=== PATIENT | female | born 1975 | race Caucasian/White ===

== ENCOUNTER 2020-01-07 10:35 | Emergency (ER) | payer OTHER, SELFPAY ==
[2020-01-07 10:38] VITALS: BP 124/77; PULSE 59; RESP 16; TEMP 36.4; O2SAT 100
--- NOTE | 2020-01-07 10:39 | ED.GENADULT ---
HPI - General Adult General Chief complaint: Urogenital-Female Stated complaint: UTI SYMPTOMS Time Seen by Provider: 01/07/20 11:07 Source: patient and RN notes reviewed Mode of arrival: ambulatory Limitations: no limitations History of Present Illness HPI narrative: 45-year-old female presents with urinary complaints for 1 day. Dysuria consist of painful urination since 05:00 today. History of Genitourinary disorders, recently completed Cipro 2 weeks ago per Yaquelin. Denies burning, frequency, and urgency.? No treatment.? Denies fever or chills. No significant pelvic pain. No vaginal discharge.? No concerns for STDs. Exacerbating factors urinating.? Denies hematuria or vaginal bleeding. Denies being , Hysterectomy.? No flank pain. Denies nausea, vomiting, and abdominal pain. Tolerating liquids well.? Remains active. Some parts of this dictation were generated by voice recognition software and may contain typographical and/or grammatical inaccuracies. Related Data Home Medications Medication Instructions Recorded Confirmed No Home Medications 01/07/20 01/07/20 Allergies Allergy/AdvReac Type Severity Reaction Status Date / Time clindamycin Allergy Intermediate HIVES Verified 01/07/20 10:44 lubiprostone Allergy Intermediate ITCHING, Verified 01/07/20 10:44 RASH, LIP SWELLING acetaminophen Allergy Mild ELEVATES Verified 01/07/20 10:44 LIVER ENZYMES, HIVES latex Allergy Mild RASH-CONDOMS Verified 01/07/20 10:44 AND GLOVES vancomycin AdvReac Intermediate CHEST Verified 01/07/20 10:44 TIGHTNESS amoxicillin AdvReac Mild CHEST PAIN Verified 01/07/20 10:44 codeine AdvReac Mild Nausea and Verified 01/07/20 10:44 Vomiting levofloxacin AdvReac Mild MUSCLE Verified 01/07/20 10:44 PAIN IN CHEST WALL nitrofurantoin AdvReac Mild CHEST Verified 01/07/20 10:44 TIGHTNESS Penicillins AdvReac Mild CHEST PAIN Verified 01/07/20 10:44 Sulfa (Sulfonamide AdvReac Mild CHEST PAIN Verified 01/07/20 10:44 Antibiotics) KETOROLAC TROMETHAMINE AdvReac Intermediate MESSES W/ Uncoded 10/26/19 13:26 MY HEART HYDROCODONE BIT AdvReac Mild TOO STRONG Uncoded 10/26/19 13:26 PAROXETINE HCL AdvReac Mild PASS OUT Uncoded 10/26/19 13:26 PROPOXYPHENE NAPSYLATE AdvReac Mild I PASS Uncoded 10/26/19 13:26 OUT Review of Systems Review of Systems: Narrative: CONSTITUTIONAL: Denies fever, chills, sweats. EYES: Denies visual changes, redness, discharge. ENT: Denies rhinorrhea, congestion, sore throat, otalgia. CARDIOVASCULAR: Denies chest pain, palpitations, edema. RESPIRATORY: Denies dyspnea, wheezing, cough. GASTROINTESTINAL: Denies abdominal pain, nausea, vomiting, diarrhea. GENITOURINARY: Complains of dysuria (painful urination). Denies hematuria, abnormal discharge. SKIN: Denies rash or itching. MUSCULOSKELETAL: Denies acute back pain, joint pain, or myalgia. NEUROLOGIC: Denies numbness or focal weakness. PSYCHIATRIC: Denies anxiety or depression. All systems reviewed & are unremarkable except as noted in HPI and below. [facility] Past Medical History Medical History (Updated 01/07/20 @ 10:47 by SAMMY Warren) Anxiety Bronchitis Constipation Depression Genitourinary disorder Interstitial cystitis, urethral dilation GERD (gastroesophageal reflux disease) Irritable bowel syndrome Mitral valve prolapse Right hand fracture Urinary tract infection Surgical History Surgical History (Updated 01/07/20 @ 10:49 by SAMMY Warren) H/O hemorrhoidectomy H/O inguinal hernia repair H/O sinus surgery H/O tubal ligation History of facial surgery Nasal reconstruction History of hysterectomy History of orthopedic surgery Right knee, trigger release finger left hand History of tonsillectomy Family History Family History (Updated 01/07/20 @ 11:19 by SAMMY Warren) Grandparent Diabetes mellitus Social History Social History (Updated 01/07
== END 2020-01-07 11:17 | disposition home or self-care (01) ==
PROVIDERS: Emergency Provider Nurse Practitioner Family; PCP Family Medicine
DX: R30.0 Dysuria (principal); Z87.440 Personal history of urinary (tract) infections; Z87.891 Personal history of nicotine dependence; K21.9 Gastro-esophageal reflux disease without esophagitis; I34.1 Nonrheumatic mitral (valve) prolapse
CPT/HCPCS: 81003; 87086; 87088; 99213; G0463

== ENCOUNTER 2020-01-13 12:14 | Emergency (ER) | payer OTHER, SELFPAY ==
--- NOTE | 2020-01-13 12:19 | ED.FEMALEGU ---
HPI - Female Genitourinary General Chief complaint: Urogenital-Female Stated complaint: possible uti Time Seen by Provider: 01/13/20 13:00 Source: patient and RN notes reviewed Mode of arrival: ambulatory Limitations: no limitations History of Present Illness HPI Narrative: 45-year-old female with history of interstitial cystitis presents for concern for urinary frequency, dysuria. Denies fever, flank pain, hematuria. MD elicited complaint: dysuria Related Data Home Medications Medication Instructions Recorded Confirmed No Home Medications 01/07/20 01/07/20 Allergies Allergy/AdvReac Type Severity Reaction Status Date / Time clindamycin Allergy Intermediate HIVES Verified 01/13/20 12:55 lubiprostone Allergy Intermediate ITCHING, Verified 01/13/20 12:55 RASH, LIP SWELLING acetaminophen Allergy Mild ELEVATES Verified 01/13/20 12:55 LIVER ENZYMES, HIVES latex Allergy Mild RASH-CONDOMS Verified 01/13/20 12:55 AND GLOVES vancomycin AdvReac Intermediate CHEST Verified 01/13/20 12:55 TIGHTNESS amoxicillin AdvReac Mild CHEST PAIN Verified 01/13/20 12:55 codeine AdvReac Mild Nausea and Verified 01/13/20 12:55 Vomiting levofloxacin AdvReac Mild MUSCLE Verified 01/13/20 12:55 PAIN IN CHEST WALL nitrofurantoin AdvReac Mild CHEST Verified 01/13/20 12:55 TIGHTNESS Penicillins AdvReac Mild CHEST PAIN Verified 01/13/20 12:55 Sulfa (Sulfonamide AdvReac Mild CHEST PAIN Verified 01/13/20 12:55 Antibiotics) KETOROLAC TROMETHAMINE AdvReac Intermediate MESSES W/ Uncoded 10/26/19 13:26 MY HEART HYDROCODONE BIT AdvReac Mild TOO STRONG Uncoded 10/26/19 13:26 PAROXETINE HCL AdvReac Mild PASS OUT Uncoded 10/26/19 13:26 PROPOXYPHENE NAPSYLATE AdvReac Mild I PASS Uncoded 10/26/19 13:26 OUT Review of Systems Review of Systems: Narrative: CONSTITUTIONAL: Denies malaise, chills, sweats, or fever. CARDIOVASCULAR: Denies chest pain, palpitations, or edema. RESPIRATORY: Denies dyspnea. GASTROINTESTINAL: Denies abdominal pain, nausea, vomiting, diarrhea GENITOURINARY: Reports dysuria, frequency. Denies hematuria. MUSCULOSKELETAL: Denies back pain, joint pain, or myalgia. All systems reviewed & are unremarkable except as noted in HPI and below PMFSH Past Medical History Medical History (Updated 01/13/20 @ 13:15 by Izabela Vaughan NP) Anxiety Bronchitis Constipation Depression Genitourinary disorder Interstitial cystitis, urethral dilation GERD (gastroesophageal reflux disease) Irritable bowel syndrome Mitral valve prolapse Right hand fracture Urinary tract infection Surgical History Surgical History (Updated 01/07/20 @ 10:49 by SAMMY Warren) H/O hemorrhoidectomy H/O inguinal hernia repair H/O sinus surgery H/O tubal ligation History of facial surgery Nasal reconstruction History of hysterectomy History of orthopedic surgery Right knee, trigger release finger left hand History of tonsillectomy Family History Family History (Updated 01/07/20 @ 11:19 by SAMMY Warren) Grandparent Diabetes mellitus Social History Social History (Updated 01/07/20 @ 11:20 by SAMMY Warren) Smoking status: Former smoker Second hand tobacco smoke exposure: No Alcohol intake: never Substance use: never Gender identity (if verbalized by the patient): Female Comments At time of signature, agree with nursing past medical, surgical, social and family history. There is no relevant family history pertinent to the presenting complaint Exam Narrative: Exam Narrative: GENERAL: Well-appearing, well-nourished, and in no acute distress. HEAD: Normocephalic. EYES: PERRLA, conjunctivae clear. NECK: Supple. No lymphadenopathy CHEST: Clear to auscultation. No respiratory distress. HEART: Regular rate and rhythm. No murmur heard. Normal peripheral pulses. ABDOMEN: Soft, nontender upon palpation, nondistended, normal active bowel sounds,
[2020-01-13 12:20] VITALS: BP 104/69; PULSE 86; RESP 20; TEMP 36.6; O2SAT 98
== END 2020-01-13 13:15 | disposition home or self-care (01) ==
PROVIDERS: Emergency Provider Nurse Practitioner; PCP Family Medicine
DX: R30.0 Dysuria (principal); F41.9 Anxiety disorder, unspecified; F32.9 Major depressive disorder, single episode, unspecified; K21.9 Gastro-esophageal reflux disease without esophagitis; I34.1 Nonrheumatic mitral (valve) prolapse
CPT/HCPCS: 81003; 87086; 87088; 99213; G0463

== ENCOUNTER 2020-01-29 14:25 | Emergency (ER) | payer OTHER, SELFPAY ==
[2020-01-29 14:30] VITALS: BP 108/75; PULSE 63; RESP 16; TEMP 36.4; O2SAT 100
--- NOTE | 2020-01-29 14:46 | ED.URI ---
HPI - URI/Sore Throat General Chief Complaint: Upper Respiratory Infection Stated Complaint: Pos UTI/sinus issues Time Seen by Provider: 01/29/20 14:58 Source: patient and RN notes reviewed Mode of arrival: ambulatory Limitations: no limitations History of Present Illness HPI Narrative: 45-year-old female presents with concern for 1 week history of postnasal drainage, rhinorrhea, nasal congestion. She denies fevers, chills, body aches, cough. Reports chest congestion. She also reports dysuria. She has a history of interstitial cystitis. She denies frequency, urgency, flank pain, abdominal pain, abnormal vaginal discharge. MD elicited complaint: nasal congestion Related Data Allergies Allergy/AdvReac Type Severity Reaction Status Date / Time clindamycin Allergy Intermediate HIVES Verified 01/29/20 14:35 lubiprostone Allergy Intermediate ITCHING, Verified 01/29/20 14:35 RASH, LIP SWELLING acetaminophen Allergy Mild ELEVATES Verified 01/29/20 14:35 LIVER ENZYMES, HIVES latex Allergy Mild RASH-CONDOMS Verified 01/29/20 14:35 AND GLOVES vancomycin AdvReac Intermediate CHEST Verified 01/29/20 14:35 TIGHTNESS amoxicillin AdvReac Mild CHEST PAIN Verified 01/29/20 14:35 codeine AdvReac Mild Nausea and Verified 01/29/20 14:35 Vomiting levofloxacin AdvReac Mild MUSCLE Verified 01/29/20 14:35 PAIN IN CHEST WALL nitrofurantoin AdvReac Mild CHEST Verified 01/29/20 14:35 TIGHTNESS Penicillins AdvReac Mild CHEST PAIN Verified 01/29/20 14:35 Sulfa (Sulfonamide AdvReac Mild CHEST PAIN Verified 01/29/20 14:35 Antibiotics) KETOROLAC TROMETHAMINE AdvReac Intermediate MESSES W/ Uncoded 10/26/19 13:26 MY HEART HYDROCODONE BIT AdvReac Mild TOO STRONG Uncoded 10/26/19 13:26 PAROXETINE HCL AdvReac Mild PASS OUT Uncoded 10/26/19 13:26 PROPOXYPHENE NAPSYLATE AdvReac Mild I PASS Uncoded 10/26/19 13:26 OUT Review of Systems Review of Systems: Narrative: CONSTITUTIONAL: Denies malaise, chills, sweats, or fever. EYES: Denies visual changes, redness, or discharge. ENT: Reports rhinorrhea, congestion. Denies sinus pain, otalgia and sore throat. CARDIOVASCULAR: Denies chest pain, palpitations, or edema. RESPIRATORY: Denies cough dyspnea. GASTROINTESTINAL: Denies abdominal pain, nausea, vomiting, diarrhea : Reports dysuria, frequency. Denies urgency, flank pain, hematuria SKIN: Denies rash or itching. MUSCULOSKELETAL: Denies myalgia. NEUROLOGIC: Denies headache. All systems reviewed & are unremarkable except as noted in HPI and below PMFSH Past Medical History Medical History (Updated 01/29/20 @ 15:09 by Izabela Vaughan NP) Anxiety Bronchitis Constipation Depression Genitourinary disorder Interstitial cystitis, urethral dilation GERD (gastroesophageal reflux disease) Irritable bowel syndrome Mitral valve prolapse Right hand fracture Urinary tract infection Surgical History Surgical History (Updated 01/07/20 @ 10:49 by SAMMY Warren) H/O hemorrhoidectomy H/O inguinal hernia repair H/O sinus surgery H/O tubal ligation History of facial surgery Nasal reconstruction History of hysterectomy History of orthopedic surgery Right knee, trigger release finger left hand History of tonsillectomy Family History Family History (Updated 01/07/20 @ 11:19 by SAMMY Warren) Grandparent Diabetes mellitus Social History Social History (Updated 01/07/20 @ 11:20 by SAMMY Warren) Smoking status: Former smoker Second hand tobacco smoke exposure: No Alcohol intake: never Substance use: never Gender identity (if verbalized by the patient): Female Comments At time of signature, agree with nursing past medical, surgical, social and family history. There is no relevant family history pertinent to the presenting complaint Exam Narrative: Exam Narrative: GENERAL: Well-appearing, well-nourished, and in no acute distress. HEAD: Normoc
== END 2020-01-29 15:14 | disposition home or self-care (01) ==
PROVIDERS: Emergency Provider Nurse Practitioner; PCP Family Medicine
DX: J32.9 Chronic sinusitis, unspecified (principal); J40 Bronchitis, not specified as acute or chronic; R30.0 Dysuria; Z87.891 Personal history of nicotine dependence; F41.9 Anxiety disorder, unspecified; F32.9 Major depressive disorder, single episode, unspecified; K21.9 Gastro-esophageal reflux disease without esophagitis; I34.1 Nonrheumatic mitral (valve) prolapse
CPT/HCPCS: 81003; 99213; G0463

== ENCOUNTER 2020-02-04 13:45 | Emergency (ER) | payer OTHER, SELFPAY ==
[2020-02-04 13:52] VITALS: BP 120/67; PULSE 76; RESP 16; TEMP 36.4; O2SAT 100
--- NOTE | 2020-02-04 13:56 | ED.FEMALEGU ---
HPI - Female Genitourinary General Chief complaint: Urogenital-Female Stated complaint: Poss Bladder Infection Time Seen by Provider: 02/04/20 14:08 Source: patient Mode of arrival: ambulatory Limitations: no limitations History of Present Illness HPI Narrative: Yaquelin Jauregui is a 45 yo female with a PMH of interstitial cystitis who states has dysuria for the past 4 days. History of IC multiple antibiotics primarily Cipro. Related Data Allergies Allergy/AdvReac Type Severity Reaction Status Date / Time clindamycin Allergy Hives Verified 02/04/20 13:57 Latex, Natural Rubber Allergy Rash Verified 02/04/20 13:57 lubiprostone [From Amitiza] Allergy Itching Verified 02/04/20 13:57 propoxyphene Allergy Other Verified 02/04/20 13:57 [From Darvocet-N 100] acetaminophen AdvReac Other Verified 02/04/20 13:57 amoxicillin AdvReac Chest Pain Verified 02/04/20 13:57 codeine AdvReac Nausea and Verified 02/04/20 13:57 Vomiting hydrocodone AdvReac Other Verified 02/04/20 13:57 ketorolac [From Toradol] AdvReac Palpitation Verified 02/04/20 13:57 s levofloxacin [From Levaquin] AdvReac Chest Pain Verified 02/04/20 13:57 nitrofurantoin AdvReac Chest Pain Verified 02/04/20 13:57 [From Macrobid] paroxetine [From Paxil] AdvReac Other Verified 02/04/20 13:57 Penicillins AdvReac Chest Pain Verified 02/04/20 13:57 Sulfa (Sulfonamide AdvReac Chest Pain Verified 02/04/20 13:57 Antibiotics) vancomycin AdvReac Chest Pain Verified 02/04/20 13:57 Review of Systems Review of Systems: Narrative: CONSTITUTIONAL: Denies fever, chills, sweats. EYES: Denies visual changes, redness, discharge. ENT: Denies rhinorrhea, congestion, sore throat, otalgia. CARDIOVASCULAR: Denies chest pain, palpitations, edema. RESPIRATORY: Denies dyspnea, wheezing, cough GASTROINTESTINAL: Denies abdominal pain, nausea, vomiting, diarrhea. GENITOURINARY: Has dysuria, hematuria, no abnormal discharge SKIN: Denies rash or itching. NEUROLOGIC: Denies numbness, or focal weakness. PSYCHIATRIC: Denies anxiety or depression. [facility] Past Medical History Medical History (Updated 02/04/20 @ 14:22 by Lizeth Cabrera CNP) Interstitial cystitis Family History Family History Grandparent Diabetes mellitus, Onset Age: 200 Cerebrovascular accident, Onset Age: 200 Father Family history of elevated blood lipids Carcinoma of colon Family history of coronary artery disease, Onset Age: 201 Patient's father is Social History Social History (Updated 02/04/20 @ 14:20 by Lizeth Cabrera CNP) Smoking status: Former smoker Smoking end date: 11/17/09 Living arrangements: with family Comments At time of signature, I agree with nursing past medical, surgical, social and family history. There is no relevant family history pertinent to the presenting complaint. Exam Narrative: Exam Narrative: GENERAL: This is a well-nourished, well-developed patient, in mildapparent distress. HEAD: normocephalic, atraumatic. EYES: Sclera clear/white. Vision is grossly intact. EARS: External ears normal, Hearing grossly intact. NOSE: External nose normal with no obvious nasal discharge, nares without redness, no rhinorrhea. THROAT: Mucous membranes moist, posterior pharynx clear. NECK: Neck supple, CARDIOVASCULAR: Regular rate and rhythm without murmurs, gallops, or rubs. RESPIRATORY: Clear to auscultation. Breath sounds equal bilaterally. No wheezes, rales, or rhonchi. GASTROINTESTINAL: Abdomen soft, SKIN: warm, intact with no suspicious lesions or rash, good texture and turgor. NEURO: awake, alert, and oriented to person, place and time. There were no obvious focal neurologic abnormalities. Steady gait EXTREMITIES: Normal range of motion. BACK: Nontender without deformity or crepitance. . Course Course Emergency Course: Urine dipstick-positive for blood-for cultu
== END 2020-02-04 14:35 | disposition home or self-care (01) ==
PROVIDERS: Emergency Provider Nurse Practitioner; PCP Family Medicine
DX: N30.90 Cystitis, unspecified without hematuria (principal); Z87.891 Personal history of nicotine dependence
CPT/HCPCS: 81003; 87086; 87088; 99213; G0463

== ENCOUNTER 2020-02-11 09:48 | Emergency (ER) | payer OTHER, SELFPAY ==
[2020-02-11 09:51] VITALS: BP 110/65; PULSE 72; RESP 16; TEMP 36.4; O2SAT 100
--- NOTE | 2020-02-11 09:54 | ED.GENADULT ---
HPI - General Adult General Chief complaint: Urogenital-Female Stated complaint: Pos UTI Time Seen by Provider: 02/11/20 09:55 Source: patient Mode of arrival: ambulatory Limitations: no limitations History of Present Illness HPI narrative: 45-year-old female patient presents to the [facility] with complaints of abdominal pressure and abdominal cramping for the past 2 to 3 days. Patient does have a history of chronic interstitial cystitis as well as IBS. Denies any fevers, nausea, vomiting or diarrhea. Denies any low back pain. Patient states she wanted to just come in and make sure this was a not a UTI. Related Data Home Medications Medication Instructions Recorded Confirmed peg 3350-electrolytes 240 ml PO Q10M 02/11/20 02/11/20 Allergies Allergy/AdvReac Type Severity Reaction Status Date / Time clindamycin Allergy Intermediate HIVES Verified 02/11/20 09:57 lubiprostone Allergy Intermediate ITCHING, Verified 02/11/20 09:57 RASH, LIP SWELLING acetaminophen Allergy Mild ELEVATES Verified 02/11/20 09:57 LIVER ENZYMES, HIVES latex Allergy Mild RASH-CONDOMS Verified 02/11/20 09:57 AND GLOVES vancomycin AdvReac Intermediate CHEST Verified 02/11/20 09:57 TIGHTNESS amoxicillin AdvReac Mild CHEST PAIN Verified 02/11/20 09:57 codeine AdvReac Mild Nausea and Verified 02/11/20 09:57 Vomiting levofloxacin AdvReac Mild MUSCLE Verified 02/11/20 09:57 PAIN IN CHEST WALL nitrofurantoin AdvReac Mild CHEST Verified 02/11/20 09:57 TIGHTNESS Penicillins AdvReac Mild CHEST PAIN Verified 02/11/20 09:57 Sulfa (Sulfonamide AdvReac Mild CHEST PAIN Verified 02/11/20 09:57 Antibiotics) KETOROLAC TROMETHAMINE AdvReac Intermediate MESSES W/ Uncoded 10/26/19 13:26 MY HEART HYDROCODONE BIT AdvReac Mild TOO STRONG Uncoded 10/26/19 13:26 PAROXETINE HCL AdvReac Mild PASS OUT Uncoded 10/26/19 13:26 PROPOXYPHENE NAPSYLATE AdvReac Mild I PASS Uncoded 10/26/19 13:26 OUT Review of Systems Review of Systems: Narrative: CONSTITUTIONAL: Denies fever, chills, or sweats. EYES: Denies visual changes, redness, or discharge. ENT: Denies rhinorrhea, congestion, sore throat, or otalgia. CARDIOVASCULAR: Denies chest pain, palpitations, or edema. RESPIRATORY: Denies cough or dyspnea. GASTROINTESTINAL: Positive abdominal cramping, denies nausea, vomiting, or diarrhea. GENITOURINARY: Denies dysuria or hematuria. SKIN: Denies rash or itching. MUSCULOSKELETAL: Denies back pain, joint pain, or myalgia. NEUROLOGIC: Denies headache, numbness, or weakness. PSYCHIATRIC: Denies anxiety or depression. [facility] Past Medical History Medical History Anxiety Bronchitis Constipation Depression Genitourinary disorder Interstitial cystitis, urethral dilation GERD (gastroesophageal reflux disease) Irritable bowel syndrome Mitral valve prolapse Right hand fracture Urinary tract infection Surgical History Surgical History H/O hemorrhoidectomy H/O inguinal hernia repair H/O sinus surgery H/O tubal ligation History of facial surgery Nasal reconstruction History of hysterectomy History of orthopedic surgery Right knee, trigger release finger left hand History of tonsillectomy Family History Family History (Updated 01/07/20 @ 11:19 by SAMMY Warren) Grandparent Diabetes mellitus Social History Social History Smoking status: Former smoker Second hand tobacco smoke exposure: No Alcohol intake: never Substance use: never Gender identity (if verbalized by the patient): Female Comments At the time of my signature I agree with nursing past medical history, surgical, social, and family history. There is no relevant family history pertinent to the presenting complaint. Exam Narrative: Exam Narrative: GENERAL:
== END 2020-02-11 10:30 | disposition home or self-care (01) ==
PROVIDERS: Emergency Provider Nurse Practitioner Family; PCP Family Medicine
DX: N30.11 Interstitial cystitis (chronic) with hematuria (principal); K21.9 Gastro-esophageal reflux disease without esophagitis; I34.1 Nonrheumatic mitral (valve) prolapse
CPT/HCPCS: 81003; 87086; 87088; 99213; G0463

== ENCOUNTER 2020-02-24 14:22 | Emergency (ER) | payer OTHER, SELFPAY ==
[2020-02-24 14:46] VITALS: BP 115/73; PULSE 70; RESP 20; TEMP 36.5; O2SAT 99
--- NOTE | 2020-02-24 14:49 | ED.FEMALEGU ---
HPI - Female Genitourinary General Chief complaint: Urogenital-Female Stated complaint: bladder infection Time Seen by Provider: 02/24/20 14:49 Source: patient and RN notes reviewed History of Present Illness HPI Narrative: Patient is a 45-year-old female that presents the urgent care with complaints of a possible UTI. Patient states that for the last 2 weeks she has had some urgency, frequency, burning with urination. Patient denies any back pain, abdominal pain, suprapubic pressure, blood in the urine, fever, nausea, vomiting. Patient does have chronic interstitial cystitis and did call her urologist, however they are not seeing patients at this time. Patient denies any discharge. States that the last antibiotic she was on was ciprofloxacin. No other acute complaints. No acute distress noted. Patient read the plan of care. Related Data Home Medications Medication Instructions Recorded Confirmed peg 3350-electrolytes 240 ml PO Q10M 02/11/20 02/11/20 Allergies Allergy/AdvReac Type Severity Reaction Status Date / Time clindamycin Allergy Intermediate HIVES Verified 02/24/20 14:50 lubiprostone Allergy Intermediate ITCHING, Verified 02/24/20 14:50 RASH, LIP SWELLING latex Allergy Mild RASH-CONDOMS Verified 02/24/20 14:50 AND GLOVES vancomycin AdvReac Intermediate CHEST Verified 02/24/20 14:50 TIGHTNESS acetaminophen AdvReac Mild ELEVATES Verified 02/24/20 14:50 LIVER ENZYMES, HIVES amoxicillin AdvReac Mild CHEST PAIN Verified 02/24/20 14:50 codeine AdvReac Mild Nausea and Verified 02/24/20 14:50 Vomiting levofloxacin AdvReac Mild MUSCLE Verified 02/24/20 14:50 PAIN IN CHEST WALL nitrofurantoin AdvReac Mild CHEST Verified 02/24/20 14:50 TIGHTNESS Penicillins AdvReac Mild CHEST PAIN Verified 02/24/20 14:50 Sulfa (Sulfonamide AdvReac Mild CHEST PAIN Verified 02/24/20 14:50 Antibiotics) KETOROLAC TROMETHAMINE AdvReac Intermediate MESSES W/ Uncoded 02/24/20 14:51 MY HEART HYDROCODONE BIT AdvReac Mild TOO STRONG Uncoded 02/24/20 14:51 PAROXETINE HCL AdvReac Mild PASS OUT Uncoded 02/24/20 14:51 PROPOXYPHENE NAPSYLATE AdvReac Mild I PASS Uncoded 02/24/20 14:51 OUT Review of Systems Review of Systems: Narrative: CONSTITUTIONAL: Denies fever, chills, or sweats. EYES: Denies visual changes, redness, or discharge. ENT: Denies rhinorrhea, congestion, sore throat, or otalgia. CARDIOVASCULAR: Denies chest pain, palpitations, or edema. RESPIRATORY: Denies cough or dyspnea. GASTROINTESTINAL: Denies abdominal pain, nausea, vomiting, or diarrhea. GENITOURINARY: Reports of dysuria, frequency, urgency SKIN: Denies rash or itching. MUSCULOSKELETAL: Denies back pain, joint pain, or myalgia. NEUROLOGIC: Denies headache, numbness, or weakness. All other systems reviewed are negative, except as documented in HPI. [facility] Family History Family History (Updated 01/07/20 @ 11:19 by SAMMY Warren) Grandparent Diabetes mellitus Social History Social History Smoking status: Former smoker Second hand tobacco smoke exposure: No Alcohol intake: never Substance use: never Gender identity (if verbalized by the patient): Female Comments At the time of my signature, I reviewed and agree with the nursing past medical, surgical, social, and family history. There is no relevant family history pertinent to the patient complaint. Exam Narrative: Exam Narrative: GENERAL: This is a well-nourished, well-developed patient, in no apparent distress. HEAD: normocephalic, atraumatic. EYES: PERRL. Sclera clear/white. Vision is grossly intact. EARS: External ears normal NOSE: External nose normal with no obvious nasal discharge THROAT: Mucous membranes moist NECK: Neck supple CARDIOVASCULAR: Regular rate and rhythm without murmurs, gallops, or rubs. RESPIRATORY: Clear to auscultation. Breath sounds equal bilater
--- NOTE | 2020-02-24 15:05 | PC.NURSE ---
NO URINE CULTURE ORDERED PER PROVIDER
== END 2020-02-24 15:10 | disposition home or self-care (01) ==
PROVIDERS: Emergency Provider Nurse Practitioner Family; PCP Family Medicine
DX: N30.10 Interstitial cystitis (chronic) without hematuria (principal); Z87.891 Personal history of nicotine dependence
CPT/HCPCS: 81003; 99212; G0463

== ENCOUNTER 2020-03-01 11:30 | Emergency (ER) | payer OTHER, SELFPAY ==
[2020-03-01 11:43] VITALS: BP 117/71; PULSE 66; RESP 16; TEMP 36.6; O2SAT 99
--- NOTE | 2020-03-01 12:07 | ED.FEMALEGU ---
HPI - Female Genitourinary General Chief complaint: Urogenital-Female Stated complaint: Poss UTI infection Time Seen by Provider: 03/01/20 12:07 Source: patient and RN notes reviewed Mode of arrival: ambulatory Limitations: no limitations History of Present Illness HPI Narrative: This is a 45 years old female presented here very frequently for UTI symptoms. Onset about 3-4days ago with urinary burning and frequency. She admits to eating healthier; denies douche or concerns for STDs. She called her urologist; who schedule her an appointment in March Related Data Home Medications Medication Instructions Recorded Confirmed No Home Medications 03/01/20 03/01/20 Allergies Allergy/AdvReac Type Severity Reaction Status Date / Time clindamycin Allergy Hives Verified 03/01/20 11:48 Latex, Natural Rubber Allergy Rash Verified 03/01/20 11:48 lubiprostone [From Amitiza] Allergy Itching Verified 03/01/20 11:48 propoxyphene Allergy Other Verified 03/01/20 11:48 [From Darvocet-N 100] acetaminophen AdvReac Other Verified 03/01/20 11:48 amoxicillin AdvReac Chest Pain Verified 03/01/20 11:48 codeine AdvReac Nausea and Verified 03/01/20 11:48 Vomiting hydrocodone AdvReac Other Verified 03/01/20 11:48 ketorolac [From Toradol] AdvReac Palpitation Verified 03/01/20 11:48 s levofloxacin [From Levaquin] AdvReac Chest Pain Verified 03/01/20 11:48 nitrofurantoin AdvReac Chest Pain Verified 03/01/20 11:48 [From Macrobid] paroxetine [From Paxil] AdvReac Other Verified 03/01/20 11:48 Penicillins AdvReac Chest Pain Verified 03/01/20 11:48 Sulfa (Sulfonamide AdvReac Chest Pain Verified 03/01/20 11:48 Antibiotics) vancomycin AdvReac Chest Pain Verified 03/01/20 11:48 Review of Systems Review of Systems: Narrative: CONSTITUTIONAL: Denies fever or feeling ill ENT: Reports chronic sinusitis CARDIOVASCULAR: Denies chest pain RESPIRATORY: Denies dyspnea GASTROINTESTINAL: Denies abdominal pain, nausea, vomiting GENITOURINARY: Denies vaginal discharge SKIN: Denies rash MUSCULOSKELETAL: Denies acute back pain NEUROLOGIC: Denies lightheaded PMFSH Past Medical History Medical History Interstitial cystitis Family History Family History Grandparent Diabetes mellitus, Onset Age: 200 Cerebrovascular accident, Onset Age: 200 Father Family history of elevated blood lipids Carcinoma of colon Family history of coronary artery disease, Onset Age: 201 Patient's father is Grandparent Family history of malignant neoplasm Diabetes mellitus Cerebrovascular accident Hypertension Family history of cardiovascular disease Father Family history of congestive heart failure Patient's father is Hypertension Carcinoma of colon Family history of emphysema Family history of cardiovascular disease Sibling Hypertension Social History Social History Smoking status: Former smoker Second hand tobacco smoke exposure: No Smoking end date: 11/17/06 Alcohol intake: never Comments At time of signature, I agree with nursing past medical, surgical, social and family history. There is no relevant family history pertinent to the presenting complaint. Exam Narrative: Exam Narrative: GENERAL: This is a well-nourished, well-developed patient, in no apparent distress. CARDIOVASCULAR: Regular rate and rhythm without murmurs, gallops, or rubs. RESPIRATORY: Clear to auscultation. Breath sounds equal bilaterally. No wheezes, rales, or rhonchi. GASTROINTESTINAL: Abdomen soft, non-tender, nondistended. Bowel sounds are active. No guarding. SKIN: warm, intact with no suspicious lesions or rash, good texture and turgor. NEURO: awake, alert, and oriented to person, place and time. There were no obvious focal neurol
== END 2020-03-01 12:23 | disposition home or self-care (01) ==
PROVIDERS: Emergency Provider Nurse Practitioner; PCP Family Medicine
DX: N30.11 Interstitial cystitis (chronic) with hematuria (principal); Z87.891 Personal history of nicotine dependence
CPT/HCPCS: 81003; 87086; 99213; G0463

== ENCOUNTER 2020-03-11 10:37 | Emergency (ER) | payer OTHER, SELFPAY ==
[2020-03-11 10:42] VITALS: BP 121/76; PULSE 71; RESP 16; TEMP 36.3; O2SAT 98
--- NOTE | 2020-03-11 10:52 | ED.FEMALEGU ---
HPI - Female Genitourinary General Chief complaint: Abdominal Pain Stated complaint: poss bladder infection Time Seen by Provider: 03/11/20 11:06 Source: patient and RN notes reviewed Mode of arrival: ambulatory Limitations: no limitations History of Present Illness HPI Narrative: This is a 45 years old female presents to the office frequently for urine frequently and urgency. Associated with abdominal pressure/bloated. She stated she has not had a good bowel movement, contributed to her IBS. Otherwise she is feeling fine. Denies changes in her diet. Related Data Home Medications Medication Instructions Recorded Confirmed peg 3350-electrolytes 240 ml PO Q10M 02/11/20 02/24/20 No Home Medications 03/01/20 03/01/20 Allergies Allergy/AdvReac Type Severity Reaction Status Date / Time latex Allergy Mild RASH-CONDOMS Verified 03/11/20 10:53 AND GLOVES clindamycin Allergy Hives Verified 03/11/20 10:53 Latex, Natural Rubber Allergy Rash Verified 03/11/20 10:53 lubiprostone [From Amitiza] Allergy Itching Verified 03/11/20 10:53 propoxyphene Allergy Other Verified 03/11/20 10:53 [From Darvocet-N 100] acetaminophen AdvReac Other Verified 03/11/20 10:53 amoxicillin AdvReac Chest Pain Verified 03/11/20 10:53 codeine AdvReac Nausea and Verified 03/11/20 10:53 Vomiting hydrocodone AdvReac Other Verified 03/11/20 10:53 ketorolac [From Toradol] AdvReac Palpitation Verified 03/11/20 10:53 s levofloxacin [From Levaquin] AdvReac Chest Pain Verified 03/11/20 10:53 nitrofurantoin AdvReac Chest Pain Verified 03/11/20 10:53 [From Macrobid] paroxetine [From Paxil] AdvReac Other Verified 03/11/20 10:53 Penicillins AdvReac Chest Pain Verified 03/11/20 10:53 Sulfa (Sulfonamide AdvReac Chest Pain Verified 03/11/20 10:53 Antibiotics) vancomycin AdvReac Chest Pain Verified 03/11/20 10:53 KETOROLAC TROMETHAMINE AdvReac Intermediate MESSES W/ Uncoded 03/01/20 16:01 MY HEART HYDROCODONE BIT AdvReac Mild TOO STRONG Uncoded 03/01/20 16:01 PAROXETINE HCL AdvReac Mild PASS OUT Uncoded 03/01/20 16:01 PROPOXYPHENE NAPSYLATE AdvReac Mild I PASS Uncoded 03/01/20 16:01 OUT Review of Systems Review of Systems: Narrative: CONSTITUTIONAL: Denies fever or feeling ill ENT: Reports normal allergies/sinus congestion CARDIOVASCULAR: Denies chest pain RESPIRATORY: Denies dyspnea, wheezing, cough GASTROINTESTINAL: Denies nausea, vomiting, diarrhea.Denies dark color stools/blood in stools GENITOURINARY: Denies abnormal discharge or lesion SKIN: Denies rash MUSCULOSKELETAL: Denies acute back pain NEUROLOGIC: Denies lightheaded PMFSH Past Medical History Medical History Anxiety Bronchitis Constipation Depression Genitourinary disorder Interstitial cystitis, urethral dilation GERD (gastroesophageal reflux disease) Interstitial cystitis Irritable bowel syndrome Mitral valve prolapse Right hand fracture Urinary tract infection Surgical History Surgical History H/O hemorrhoidectomy H/O inguinal hernia repair H/O sinus surgery H/O tubal ligation History of facial surgery Nasal reconstruction History of hysterectomy History of orthopedic surgery Right knee, trigger release finger left hand History of tonsillectomy Family History Family History Grandparent Diabetes mellitus, Onset Age: 200 Cerebrovascular accident, Onset Age: 200 Father Family history of elevated blood lipids Carcinoma of colon Family history of coronary artery disease, Onset Age: 201 Patient's father is Grandparent Family history of malignant neoplasm Diabetes mellitus Cerebrovascular accident Hypertension Family history of cardiovascular disease Father Family history of congestive heart failure Patient's father is
== END 2020-03-11 11:21 | disposition home or self-care (01) ==
PROVIDERS: Emergency Provider Nurse Practitioner; PCP Family Medicine
DX: N30.10 Interstitial cystitis (chronic) without hematuria (principal); K58.2 Mixed irritable bowel syndrome; K21.9 Gastro-esophageal reflux disease without esophagitis; K58.9 Irritable bowel syndrome, unspecified; Z87.891 Personal history of nicotine dependence
CPT/HCPCS: 81003; 87086; 87088; 99213; G0463

== ENCOUNTER 2020-03-23 13:19 | Emergency (ER) | payer OTHER, SELFPAY ==
[2020-03-23 13:25] VITALS: BP 119/77; PULSE 62; RESP 16; TEMP 36.7; O2SAT 100
--- NOTE | 2020-03-23 13:30 | ED.FEMALEGU ---
HPI - Female Genitourinary General Chief complaint: Urogenital-Female Stated complaint: burning during urination History of Present Illness HPI Narrative: see down time paper. Related Data Home Medications Medication Instructions Recorded Confirmed No Home Medications 03/23/20 03/23/20 Allergies Allergy/AdvReac Type Severity Reaction Status Date / Time latex Allergy Mild RASH-CONDOMS Verified 03/23/20 13:27 AND GLOVES clindamycin Allergy Hives Verified 03/23/20 13:27 Latex, Natural Rubber Allergy Rash Verified 03/23/20 13:27 lubiprostone [From Amitiza] Allergy Itching Verified 03/23/20 13:27 propoxyphene Allergy Other Verified 03/23/20 13:27 [From Darvocet-N 100] acetaminophen AdvReac Other Verified 03/23/20 13:27 amoxicillin AdvReac Chest Pain Verified 03/23/20 13:27 codeine AdvReac Nausea and Verified 03/23/20 13:27 Vomiting hydrocodone AdvReac Other Verified 03/23/20 13:27 ketorolac [From Toradol] AdvReac Palpitation Verified 03/23/20 13:27 s levofloxacin [From Levaquin] AdvReac Chest Pain Verified 03/23/20 13:27 nitrofurantoin AdvReac Chest Pain Verified 03/23/20 13:27 [From Macrobid] paroxetine [From Paxil] AdvReac Other Verified 03/23/20 13:27 Penicillins AdvReac Chest Pain Verified 03/23/20 13:27 Sulfa (Sulfonamide AdvReac Chest Pain Verified 03/23/20 13:27 Antibiotics) vancomycin AdvReac Chest Pain Verified 03/23/20 13:27 KETOROLAC TROMETHAMINE AdvReac Intermediate MESSES W/ Uncoded 03/01/20 16:01 MY HEART HYDROCODONE BIT AdvReac Mild TOO STRONG Uncoded 03/01/20 16:01 PAROXETINE HCL AdvReac Mild PASS OUT Uncoded 03/01/20 16:01 PROPOXYPHENE NAPSYLATE AdvReac Mild I PASS Uncoded 03/01/20 16:01 OUT PMFSH Social History Social History Smoking status: Former smoker Second hand tobacco smoke exposure: No Smoking end date: 11/17/06 Alcohol intake: never Substance use: never Gender identity (if verbalized by the patient): Female Course Vital Signs Vital signs: Vital Signs Temperature 98.1 F 03/23/20 13:25 Pulse Rate 62 03/23/20 13:25 Respiratory Rate 16 03/23/20 13:25 Blood Pressure 119/77 03/23/20 13:25 Pulse Oximetry 100 03/23/20 13:25 Temperature 98.1 F 03/23/20 13:25 Pulse Rate 62 03/23/20 13:25 Respiratory Rate 16 03/23/20 13:25 Blood Pressure 119/77 03/23/20 13:25 Pulse Oximetry 100 03/23/20 13:25 Discharge Plan Discharge Patient Disposition: Home, Self-Care Condition: Stable Instructions: Antibiotic Form Prescriptions: No Action No Home Medications RF: 0 Follow-up/Referrals: Antonio,Eda Nance MD [Primary Care Provider] - Discharge Date/Time: 03/23/20 14:08
--- NOTE | 2020-03-23 15:47 | PC.NURSE ---
03/23/2020 1408 SEE DOWNTIME DOCUMENTATION. Sara BARNEY RN.
== END 2020-03-23 14:08 | disposition home or self-care (01) ==
PROVIDERS: Emergency Provider Nurse Practitioner; PCP Family Medicine
DX: R30.0 Dysuria (principal); Z87.891 Personal history of nicotine dependence
CPT/HCPCS: 81003; 87086; 87088; 99213; G0463

== ENCOUNTER 2020-05-19 10:22 | Emergency (ER) | payer OTHER, SELFPAY ==
[2020-05-19 10:46] VITALS: BP 120/80; PULSE 91; RESP 20; TEMP 36.7; O2SAT 99
--- NOTE | 2020-05-19 10:48 | ED.FEMALEGU ---
HPI - Female Genitourinary General Chief complaint: Urogenital-Female Stated complaint: Urinary frequency/irritation Time Seen by Provider: 05/19/20 10:48 Source: patient Mode of arrival: ambulatory Limitations: no limitations History of Present Illness HPI Narrative: Yaquelin Jauregui is a 45 yo female with a PMH of IBS who comes to express care with itching and irritation of outside urethra and vulva last few days. Treated with Rocephin at 2 ERs for same symptoms within last week, no vaginal dischsrage Related Data Home Medications Medication Instructions Recorded Confirmed peg 3350-electrolytes 05/19/20 Allergies Allergy/AdvReac Type Severity Reaction Status Date / Time latex Allergy Mild RASH-CONDOMS Verified 03/23/20 13:27 AND GLOVES clindamycin Allergy Hives Verified 03/23/20 13:27 Latex, Natural Rubber Allergy Rash Verified 03/23/20 13:27 lubiprostone [From Amitiza] Allergy Itching Verified 03/23/20 13:27 propoxyphene Allergy Other Verified 03/23/20 13:27 [From Darvocet-N 100] acetaminophen AdvReac Other Verified 03/23/20 13:27 amoxicillin AdvReac Chest Pain Verified 03/23/20 13:27 codeine AdvReac Nausea and Verified 03/23/20 13:27 Vomiting hydrocodone AdvReac Other Verified 03/23/20 13:27 ketorolac [From Toradol] AdvReac Palpitation Verified 03/23/20 13:27 s levofloxacin [From Levaquin] AdvReac Chest Pain Verified 03/23/20 13:27 nitrofurantoin AdvReac Chest Pain Verified 03/23/20 13:27 [From Macrobid] paroxetine [From Paxil] AdvReac Other Verified 03/23/20 13:27 Penicillins AdvReac Chest Pain Verified 03/23/20 13:27 Sulfa (Sulfonamide AdvReac Chest Pain Verified 03/23/20 13:27 Antibiotics) vancomycin AdvReac Chest Pain Verified 03/23/20 13:27 KETOROLAC TROMETHAMINE AdvReac Intermediate MESSES W/ Uncoded 03/01/20 16:01 MY HEART HYDROCODONE BIT AdvReac Mild TOO STRONG Uncoded 03/01/20 16:01 PAROXETINE HCL AdvReac Mild PASS OUT Uncoded 03/01/20 16:01 PROPOXYPHENE NAPSYLATE AdvReac Mild I PASS Uncoded 03/01/20 16:01 OUT Review of Systems Review of Systems: Narrative: CONSTITUTIONAL: Denies fever, chills, sweats. EYES: Denies visual changes, redness, discharge. ENT: Denies rhinorrhea, congestion, sore throat, otalgia. CARDIOVASCULAR: Denies chest pain, palpitations, edema. RESPIRATORY: Denies dyspnea, wheezing, cough GASTROINTESTINAL: Denies abdominal pain, nausea, vomiting, diarrhea. GENITOURINARY: Denies dysuria, hematuria, abnormal discharge. Ring irritation in the vaginal area SKIN: Denies rash or itching. NEUROLOGIC: Denies numbness, or focal weakness. PSYCHIATRIC: Denies anxiety or depression. [facility] Past Medical History Medical History Anxiety Bronchitis Constipation Depression Genitourinary disorder Interstitial cystitis, urethral dilation GERD (gastroesophageal reflux disease) Interstitial cystitis Irritable bowel syndrome Mitral valve prolapse Right hand fracture Urinary tract infection Surgical History Surgical History H/O hemorrhoidectomy H/O inguinal hernia repair H/O sinus surgery H/O tubal ligation History of facial surgery Nasal reconstruction History of hysterectomy History of orthopedic surgery Right knee, trigger release finger left hand History of tonsillectomy Family History Family History Grandparent Diabetes mellitus, Onset Age: 200 Cerebrovascular accident, Onset Age: 200 Father Family history of elevated blood lipids Carcinoma of colon Family history of coronary artery disease, Onset Age: 201 Patient's father is Grandparent Family history of malignant neoplasm Diabetes mellitus Cerebrovascular accident Hypertension Family history of cardiovascular disease Father Family history of congestive heart failure
== END 2020-05-19 11:25 | disposition home or self-care (01) ==
PROVIDERS: Emergency Provider Nurse Practitioner; PCP Family Medicine
DX: N76.0 Acute vaginitis (principal)
CPT/HCPCS: 81003; 99213; G0463

== ENCOUNTER 2020-05-25 16:29 | Emergency (ER) | payer OTHER, SELFPAY ==
[2020-05-25 16:34] VITALS: BP 109/71; PULSE 69; RESP 16; TEMP 35.7; O2SAT 100
--- NOTE | 2020-05-25 16:40 | ED.FEMALEGU ---
HPI - Female Genitourinary General Chief complaint: Urogenital-Female Stated complaint: UTI SYMPTOM Time Seen by Provider: 05/25/20 16:40 Source: patient and RN notes reviewed History of Present Illness HPI Narrative: Patient is a 45-year-old female who presents the urgent care with complaints of 3-week history of urinary frequency and burning with urination. 3 weeks ago patient was seen in the emergency room and given Rocephin. Patient was then seen on May 19 and treated from our facility with Flagyl and Diflucan. Patient states that her symptoms are not improving. Patient's last urinary culture on March 23 was normal without any bacterial growth. Patient has not had a culture since then. Patient does have frequent history of urinary tract infections as well as cystitis/vaginitis. Patient denies of any vaginal discharge and states that there is no possibility of an STD, patient states that she does not have intercourse . Related Data Home Medications Medication Instructions Recorded Confirmed peg 3350-electrolytes 05/19/20 Allergies Allergy/AdvReac Type Severity Reaction Status Date / Time latex Allergy Mild RASH-CONDOMS Verified 03/23/20 13:27 AND GLOVES clindamycin Allergy Hives Verified 03/23/20 13:27 Latex, Natural Rubber Allergy Rash Verified 03/23/20 13:27 lubiprostone [From Amitiza] Allergy Itching Verified 03/23/20 13:27 propoxyphene Allergy Other Verified 03/23/20 13:27 [From Darvocet-N 100] acetaminophen AdvReac Other Verified 03/23/20 13:27 amoxicillin AdvReac Chest Pain Verified 03/23/20 13:27 codeine AdvReac Nausea and Verified 03/23/20 13:27 Vomiting hydrocodone AdvReac Other Verified 03/23/20 13:27 ketorolac [From Toradol] AdvReac Palpitation Verified 03/23/20 13:27 s levofloxacin [From Levaquin] AdvReac Chest Pain Verified 03/23/20 13:27 nitrofurantoin AdvReac Chest Pain Verified 03/23/20 13:27 [From Macrobid] paroxetine [From Paxil] AdvReac Other Verified 03/23/20 13:27 Penicillins AdvReac Chest Pain Verified 03/23/20 13:27 Sulfa (Sulfonamide AdvReac Chest Pain Verified 03/23/20 13:27 Antibiotics) vancomycin AdvReac Chest Pain Verified 03/23/20 13:27 KETOROLAC TROMETHAMINE AdvReac Intermediate MESSES W/ Uncoded 03/01/20 16:01 MY HEART HYDROCODONE BIT AdvReac Mild TOO STRONG Uncoded 03/01/20 16:01 PAROXETINE HCL AdvReac Mild PASS OUT Uncoded 03/01/20 16:01 PROPOXYPHENE NAPSYLATE AdvReac Mild I PASS Uncoded 03/01/20 16:01 OUT Review of Systems Review of Systems: Narrative: CONSTITUTIONAL: Denies fever, chills, or sweats. EYES: Denies visual changes, redness, or discharge. ENT: Denies rhinorrhea, congestion, sore throat, or otalgia. CARDIOVASCULAR: Denies chest pain, palpitations, or edema. RESPIRATORY: Denies cough or dyspnea. GASTROINTESTINAL: Denies abdominal pain, nausea, vomiting, or diarrhea. GENITOURINARY: Reports of dysuria and frequency SKIN: Denies rash or itching. MUSCULOSKELETAL: Denies back pain, joint pain, or myalgia. NEUROLOGIC: Denies headache, numbness, or weakness. All other systems reviewed are negative, except as documented in HPI. PMFSH Social History Social History Smoking status: Former smoker Second hand tobacco smoke exposure: No Smoking end date: 11/17/06 Alcohol intake: never Substance use: never Gender identity (if verbalized by the patient): Female Comments At the time of my signature, I reviewed and agree with the nursing past medical, surgical, social, and family history. There is no relevant family history pertinent to the patient complaint. Exam Narrative: Exam Narrative: GENERAL: This is a well-nourished, well-developed patient, in no apparent distress. HEAD: normocephalic, atraumatic. EYES: PERRL. Sclera clear/white. Vision is grossly intact. EARS: External ears normal NOSE: External nose normal with no obvious nasal discharge, nares without
== END 2020-05-25 17:00 | disposition home or self-care (01) ==
PROVIDERS: Emergency Provider Nurse Practitioner Family; PCP Family Medicine
DX: R35.0 Frequency of micturition (principal); Z87.891 Personal history of nicotine dependence
CPT/HCPCS: 81003; 99212; G0463

== ENCOUNTER 2020-06-10 14:39 | Emergency (ER) | payer OTHER, SELFPAY ==
[2020-06-10 14:42] VITALS: BP 113/70; PULSE 81; RESP 16; TEMP 37.1; O2SAT 99
--- NOTE | 2020-06-10 15:10 | ED.FEMALEGU ---
HPI - Female Genitourinary General Chief complaint: Urogenital-Female Stated complaint: frequent urination/irritation Time Seen by Provider: 06/10/20 15:11 Source: patient and RN notes reviewed Mode of arrival: ambulatory Limitations: no limitations History of Present Illness HPI Narrative: This is a 45 years old female presents to the office for an evaluation of urinary frequency for one week. She recently just get over yeast infection. She is feeling fine; however she just wants to make sure her urine is okay. She made some changes to her drinking choice, body wash and wipe. She also reports sinus congestion which contribute to weather changes. She has not tried any thing for her sinus. Related Data Home Medications Medication Instructions Recorded Confirmed peg 3350-electrolytes 05/19/20 Allergies Allergy/AdvReac Type Severity Reaction Status Date / Time latex Allergy Mild RASH-CONDOMS Verified 06/10/20 15:08 AND GLOVES clindamycin Allergy Hives Verified 06/10/20 15:08 lubiprostone [From Amitiza] Allergy Itching Verified 06/10/20 15:08 propoxyphene Allergy Other Verified 06/10/20 15:08 [From Darvocet-N 100] acetaminophen AdvReac Other Verified 06/10/20 15:08 amoxicillin AdvReac Chest Pain Verified 06/10/20 15:08 codeine AdvReac Nausea and Verified 06/10/20 15:08 Vomiting hydrocodone AdvReac Other Verified 06/10/20 15:08 ketorolac [From Toradol] AdvReac Palpitation Verified 06/10/20 15:08 s levofloxacin [From Levaquin] AdvReac Chest Pain Verified 06/10/20 15:08 nitrofurantoin AdvReac Chest Pain Verified 06/10/20 15:08 [From Macrobid] paroxetine [From Paxil] AdvReac Other Verified 06/10/20 15:08 Penicillins AdvReac Chest Pain Verified 06/10/20 15:08 Sulfa (Sulfonamide AdvReac Chest Pain Verified 06/10/20 15:08 Antibiotics) vancomycin AdvReac Chest Pain Verified 06/10/20 15:08 KETOROLAC TROMETHAMINE AdvReac Intermediate MESSES W/ Uncoded 06/10/20 15:08 MY HEART HYDROCODONE BIT AdvReac Mild TOO STRONG Uncoded 06/10/20 15:08 PAROXETINE HCL AdvReac Mild PASS OUT Uncoded 06/10/20 15:08 PROPOXYPHENE NAPSYLATE AdvReac Mild I PASS Uncoded 06/10/20 15:08 OUT Review of Systems Review of Systems: Narrative: CONSTITUTIONAL: Denies fever ENT: Denies sore throat, otalgia. Reports sinus drainage CARDIOVASCULAR: Denies chest pain, palpitation RESPIRATORY: Denies dyspnea, wheezing, cough GASTROINTESTINAL: Denies abdominal pain, nausea, vomiting, diarrhea. GENITOURINARY: Denies vaginal discharge/vaginitis SKIN: Denies rash MUSCULOSKELETAL: Denies acute back pain NEUROLOGIC: Denies lightheaded All other systems reviewed are negative, except as documented in HPI. [facility] Past Medical History Medical History Anxiety Bronchitis Constipation Depression Genitourinary disorder Interstitial cystitis, urethral dilation GERD (gastroesophageal reflux disease) Interstitial cystitis Irritable bowel syndrome Mitral valve prolapse Right hand fracture Urinary tract infection Surgical History Surgical History H/O hemorrhoidectomy H/O inguinal hernia repair H/O sinus surgery H/O tubal ligation History of facial surgery Nasal reconstruction History of hysterectomy History of orthopedic surgery Right knee, trigger release finger left hand History of tonsillectomy Family History Family History Grandparent Diabetes mellitus, Onset Age: 200 Cerebrovascular accident, Onset Age: 200 Father Family history of elevated blood lipids Carcinoma of colon Family history of coronary artery disease, Onset Age: 201 Patient's father is Grandparent Family history of malignant neoplasm Diabetes mellitus Cerebrovascular accident Hypertension Family history of cardiovascular disease Father
== END 2020-06-10 15:26 | disposition home or self-care (01) ==
PROVIDERS: Emergency Provider Nurse Practitioner; PCP Family Medicine
DX: R35.0 Frequency of micturition (principal); J01.91 Acute recurrent sinusitis, unspecified; Z87.891 Personal history of nicotine dependence; K21.9 Gastro-esophageal reflux disease without esophagitis; I34.1 Nonrheumatic mitral (valve) prolapse
CPT/HCPCS: 81003; 99212; G0463

== ENCOUNTER 2020-06-20 15:27 | Emergency (ER) | payer OTHER, SELFPAY ==
--- NOTE | 2020-06-20 15:56 | ED.GENADULT ---
HPI - General Adult General Chief complaint: Urogenital-Female Stated complaint: Urogenital-female Time Seen by Provider: 06/20/20 15:56 Source: patient Mode of arrival: ambulatory Limitations: no limitations History of Present Illness HPI narrative: 45-year-old female patient presents to the [facility] with complaints of bilateral flank pain x1 day. Patient does have history of chronic interstitial cystitis. Patient states she does see her urologist on Friday. Patient states she just wanted to come and get checked out make sure that it was not her kidneys or urinary tract infection. Patient states she thinks it also might possibly be the IBS. Patient states that she did use [employer] the other day for vaginal wash and states she did start itching to the vaginal area and tried to wash it out as much as possible but denies seeing anything for the reaction. Related Data Allergies Allergy/AdvReac Type Severity Reaction Status Date / Time latex Allergy Mild RASH-CONDOMS Verified 06/20/20 15:46 AND GLOVES clindamycin Allergy Hives Verified 06/20/20 15:46 lubiprostone [From Amitiza] Allergy Itching Verified 06/20/20 15:46 propoxyphene Allergy Other Verified 06/20/20 15:46 [From Darvocet-N 100] acetaminophen AdvReac Other Verified 06/20/20 15:46 amoxicillin AdvReac Chest Pain Verified 06/20/20 15:46 codeine AdvReac Nausea and Verified 06/20/20 15:46 Vomiting hydrocodone AdvReac Other Verified 06/20/20 15:46 ketorolac [From Toradol] AdvReac Palpitation Verified 06/20/20 15:46 s levofloxacin [From Levaquin] AdvReac Chest Pain Verified 06/20/20 15:46 nitrofurantoin AdvReac Chest Pain Verified 06/20/20 15:46 [From Macrobid] paroxetine [From Paxil] AdvReac Other Verified 06/20/20 15:46 Penicillins AdvReac Chest Pain Verified 06/20/20 15:46 Sulfa (Sulfonamide AdvReac Chest Pain Verified 06/20/20 15:46 Antibiotics) vancomycin AdvReac Chest Pain Verified 06/20/20 15:46 KETOROLAC TROMETHAMINE AdvReac Intermediate MESSES W/ Uncoded 06/10/20 15:08 MY HEART HYDROCODONE BIT AdvReac Mild TOO STRONG Uncoded 06/10/20 15:08 PAROXETINE HCL AdvReac Mild PASS OUT Uncoded 06/10/20 15:08 PROPOXYPHENE NAPSYLATE AdvReac Mild I PASS Uncoded 06/10/20 15:08 OUT Review of Systems Review of Systems: Narrative: CONSTITUTIONAL: Denies fever, chills, or sweats. EYES: Denies visual changes, redness, or discharge. ENT: Denies rhinorrhea, congestion, sore throat, or otalgia. CARDIOVASCULAR: Denies chest pain, palpitations, or edema. RESPIRATORY: Denies cough or dyspnea. GASTROINTESTINAL: Denies abdominal pain, nausea, vomiting, or diarrhea. Positive bilateral flank pain GENITOURINARY: Denies dysuria or hematuria. Positive vaginal irritation SKIN: Denies rash or itching. MUSCULOSKELETAL: Denies back pain, joint pain, or myalgia. NEUROLOGIC: Denies headache, numbness, or weakness. PSYCHIATRIC: Denies anxiety or depression. [facility] Past Medical History Medical History Anxiety Bronchitis Constipation Depression Genitourinary disorder Interstitial cystitis, urethral dilation GERD (gastroesophageal reflux disease) Interstitial cystitis Irritable bowel syndrome Mitral valve prolapse Right hand fracture Urinary tract infection Surgical History Surgical History H/O hemorrhoidectomy H/O inguinal hernia repair H/O sinus surgery H/O tubal ligation History of facial surgery Nasal reconstruction History of hysterectomy History of orthopedic surgery Right knee, trigger release finger left hand History of tonsillectomy Family History Family History Grandparent Diabetes mellitus, Onset Age: 200 Cerebrovascular accident, Onset Age: 200 Father Family history of elevated blood lipids Carcinoma of colon Family history of
[2020-06-20 15:58] VITALS: BP 120/74; PULSE 72; RESP 18; TEMP 37.1; O2SAT 100
== END 2020-06-20 16:26 | disposition home or self-care (01) ==
PROVIDERS: Emergency Provider Nurse Practitioner Family; PCP Family Medicine
DX: N30.10 Interstitial cystitis (chronic) without hematuria (principal); Z87.891 Personal history of nicotine dependence
CPT/HCPCS: 81003; 99212; G0463

== ENCOUNTER 2020-06-29 12:11 | Emergency (ER) | payer OTHER, SELFPAY ==
[2020-06-29 12:19] VITALS: BP 136/77; PULSE 72; RESP 20; TEMP 36.2; O2SAT 100
--- NOTE | 2020-06-29 12:28 | ED.FEMALEGU ---
HPI - Female Genitourinary General Chief complaint: Urogenital-Female Stated complaint: Pos UTI Time Seen by Provider: 06/29/20 12:29 Source: patient and RN notes reviewed Mode of arrival: ambulatory Limitations: no limitations History of Present Illness HPI Narrative: 45 year old female who present to express care with complaints of 2- 3 day duration of urinary burning and frequency. Patient also states that she wonders if she had food poisoning also because she has had intermittent diarrhea for past 2-3 days after eating at [employer]. Patient denies any fevers, chills, nausea or vomiting, denies any flank pain. Patient states that she does experience some suprapubic pressure and spasms. Patient does have long history of interstitial cystitis and IBS. Related Data Allergies Allergy/AdvReac Type Severity Reaction Status Date / Time latex Allergy Mild RASH-CONDOMS Verified 06/29/20 12:43 AND GLOVES clindamycin Allergy Hives Verified 06/29/20 12:43 lubiprostone [From Amitiza] Allergy Itching Verified 06/29/20 12:43 propoxyphene Allergy Other Verified 06/29/20 12:43 [From Darvocet-N 100] acetaminophen AdvReac Other Verified 06/29/20 12:43 amoxicillin AdvReac Chest Pain Verified 06/29/20 12:43 codeine AdvReac Nausea and Verified 06/29/20 12:43 Vomiting hydrocodone AdvReac Other Verified 06/29/20 12:43 ketorolac [From Toradol] AdvReac Palpitation Verified 06/29/20 12:43 s levofloxacin [From Levaquin] AdvReac Chest Pain Verified 06/29/20 12:43 nitrofurantoin AdvReac Chest Pain Verified 06/29/20 12:43 [From Macrobid] paroxetine [From Paxil] AdvReac Other Verified 06/29/20 12:43 Penicillins AdvReac Chest Pain Verified 06/29/20 12:43 Sulfa (Sulfonamide AdvReac Chest Pain Verified 06/29/20 12:43 Antibiotics) vancomycin AdvReac Chest Pain Verified 06/29/20 12:43 HYDROCODONE BIT AdvReac Mild TOO STRONG Uncoded 06/29/20 12:43 PAROXETINE HCL AdvReac Mild PASS OUT Uncoded 06/29/20 12:43 PROPOXYPHENE NAPSYLATE AdvReac Mild I PASS Uncoded 06/29/20 12:43 OUT Review of Systems Review of Systems: Narrative: CONSTITUTIONAL: Denies fever, chills, or sweats. EYES: Denies visual changes, redness, or discharge. ENT: Denies rhinorrhea, congestion, sore throat, or otalgia. CARDIOVASCULAR: Denies chest pain, palpitations, or edema. RESPIRATORY: Denies cough or dyspnea. GASTROINTESTINAL: Reports suprapubic abdominal discomfort and spasms,no nausea, vomiting, reports diarrhea episodes. GENITOURINARY: positive dysuria denies any visible hematuria. SKIN: Denies rash or itching. MUSCULOSKELETAL: Denies back pain, joint pain, or myalgia. NEUROLOGIC: Denies headache, numbness, or weakness. PSYCHIATRIC: Denies anxiety or depression. All systems reviewed & are unremarkable except as noted in HPI and below PMFSH Past Medical History Medical History Anxiety Bronchitis Constipation Depression Genitourinary disorder Interstitial cystitis, urethral dilation GERD (gastroesophageal reflux disease) Interstitial cystitis Irritable bowel syndrome Mitral valve prolapse Right hand fracture Urinary tract infection Vaginal delivery Surgical History Surgical History H/O hemorrhoidectomy H/O inguinal hernia repair H/O sinus surgery H/O tubal ligation History of facial surgery Nasal reconstruction History of hysterectomy History of orthopedic surgery Right knee, trigger release finger left hand History of tonsillectomy Family History Family History Grandparent Diabetes mellitus, Onset Age: 200 Cerebrovascular accident, Onset Age: 200 Father Family history of elevated blood lipids Carcinoma of colon Family history of coronary artery disease, Onset Age: 201 Patient's father is Grandparent Family history
== END 2020-06-29 13:02 | disposition home or self-care (01) ==
PROVIDERS: Emergency Provider Registered Nurse; PCP Family Medicine
DX: N30.90 Cystitis, unspecified without hematuria (principal); K58.2 Mixed irritable bowel syndrome; Z87.891 Personal history of nicotine dependence; F41.9 Anxiety disorder, unspecified; F32.9 Major depressive disorder, single episode, unspecified; K21.9 Gastro-esophageal reflux disease without esophagitis; I34.1 Nonrheumatic mitral (valve) prolapse
CPT/HCPCS: 81003; 99213; G0463

== ENCOUNTER 2020-07-09 11:24 | Emergency (ER) | payer OTHER, SELFPAY | END 2020-07-09 11:25 | disposition left against medical advice (07) | LOC: ANHED 09-26 11:38 | PROVIDERS: Emergency Provider Nurse Practitioner Family | DX: Z53.21 Procedure and treatment not carried out due to patient leaving prior to being seen by health care provider (principal) | CPT/HCPCS: 99199 ==

== ENCOUNTER 2020-07-09 11:36 | Emergency (ER) | payer OTHER, SELFPAY ==
[2020-07-09 11:43] VITALS: BP 120/76; PULSE 60; RESP 20; TEMP 36.6; O2SAT 100
--- NOTE | 2020-07-09 12:14 | ED.GENADULT ---
HPI - General Adult General Chief complaint: Urogenital-Female Stated complaint: Bladder infection Time Seen by Provider: 07/09/20 12:14 Source: patient and RN notes reviewed Mode of arrival: ambulatory Limitations: no limitations History of Present Illness HPI narrative: 45-year-old female presents with urinary complaints for the past 5 days. Dysuria consist of frequency. Denies burning and urgency.? No treatment.? Denies fever or chills. No significant pelvic pain. No vaginal discharge.? No concerns for STDs. Exacerbating factors urinating.? Denies hematuria or vaginal bleeding. Denies being , LMP hysterectomy.? No flank pain. Denies nausea, vomiting, and abdominal pain.? Tolerating liquids well.? Remains active. The patient reports she have not been diagnosed with COVID-19. The patient reports she is not waiting for the results of a COVID-19 lab test. The patient reports she do not have fever, chills, weakness, or fatigue The patient reports she do not have a new or worsening cough or shortness of breath. Denies chest pain. The patient reports she do not have any rhinorrhea, congestion, sore throat, loss of taste, and diarrhea. Tolerating po intake well. Denies recent traveling. Denies concerns for COVID-19 or exposures been home with limited outdoor exposure except for essential household need and return home. At this time, patient is not suspected of having COVID-19. Some parts of this dictation were generated by voice recognition software and may contain typographical and/or grammatical inaccuracies. Related Data Home Medications Medication Instructions Recorded Confirmed peg 3350-electrolytes 07/09/20 Allergies Allergy/AdvReac Type Severity Reaction Status Date / Time latex Allergy Mild RASH-CONDOMS Verified 06/29/20 12:43 AND GLOVES clindamycin Allergy Hives Verified 06/29/20 12:43 lubiprostone [From Amitiza] Allergy Itching Verified 06/29/20 12:43 propoxyphene Allergy Other Verified 06/29/20 12:43 [From Darvocet-N 100] acetaminophen AdvReac Other Verified 06/29/20 12:43 amoxicillin AdvReac Chest Pain Verified 06/29/20 12:43 codeine AdvReac Nausea and Verified 06/29/20 12:43 Vomiting hydrocodone AdvReac Other Verified 06/29/20 12:43 ketorolac [From Toradol] AdvReac Palpitation Verified 06/29/20 12:43 s levofloxacin [From Levaquin] AdvReac Chest Pain Verified 06/29/20 12:43 nitrofurantoin AdvReac Chest Pain Verified 06/29/20 12:43 [From Macrobid] paroxetine [From Paxil] AdvReac Other Verified 06/29/20 12:43 Penicillins AdvReac Chest Pain Verified 06/29/20 12:43 Sulfa (Sulfonamide AdvReac Chest Pain Verified 06/29/20 12:43 Antibiotics) vancomycin AdvReac Chest Pain Verified 06/29/20 12:43 HYDROCODONE BIT AdvReac Mild TOO STRONG Uncoded 06/29/20 12:43 PAROXETINE HCL AdvReac Mild PASS OUT Uncoded 06/29/20 12:43 PROPOXYPHENE NAPSYLATE AdvReac Mild I PASS Uncoded 06/29/20 12:43 OUT Review of Systems Review of Systems: Narrative: CONSTITUTIONAL: Denies fever, chills, sweats. EYES: Denies visual changes, redness, discharge. ENT: Denies rhinorrhea, congestion, sore throat, otalgia. CARDIOVASCULAR: Denies chest pain, palpitations, edema. RESPIRATORY: Denies dyspnea, wheezing, cough. GASTROINTESTINAL: Denies abdominal pain, nausea, vomiting, diarrhea. GENITOURINARY: Complains of dysuria (frequency). Denies burning, urgency, hematuria, abnormal discharge. SKIN: Denies rash or itching. MUSCULOSKELETAL: Denies acute back pain, joint pain, or myalgia. NEUROLOGIC: Denies numbness or focal weakness. PSYCHIATRIC: Denies anxiety or depression. All systems reviewed & are unremarkable except as noted in HPI and below. [facility] Past Medical History Medical History Anxiety Bronchitis Constipation Depression Genitourinary disorder Interstitial cystitis, urethral dilation GERD (gastroesophageal reflux disease)
== END 2020-07-09 12:31 | disposition home or self-care (01) ==
PROVIDERS: Emergency Provider Nurse Practitioner Family; PCP Family Medicine
DX: R30.0 Dysuria (principal); Z87.891 Personal history of nicotine dependence; K21.9 Gastro-esophageal reflux disease without esophagitis; I34.1 Nonrheumatic mitral (valve) prolapse
CPT/HCPCS: 81003; 87086; 87088; 99213; G0463

== ENCOUNTER 2020-07-18 13:50 | Emergency (ER) | payer SELFPAY ==
[2020-07-18 14:06] VITALS: BP 121/85; PULSE 81; RESP 16; TEMP 36.5; O2SAT 100
--- NOTE | 2020-07-18 14:49 | ED.FEMALEGU ---
HPI - Female Genitourinary General Chief complaint: Urogenital-Female Stated complaint: uti Time Seen by Provider: 07/18/20 14:49 Source: patient and RN notes reviewed Mode of arrival: ambulatory Limitations: no limitations History of Present Illness HPI Narrative: 45 year old female who presents to [facility] care with complaints of dysuria, burning with urination for the past 4 days. Patient has long history of cystitis and IBS. Patient states that she just started a new job and she has not been able to drink enough water lately due to their restrictions. Patient has not taken any AZO or any OTC medications for her symptoms. Patient states that she saw her urologist about 2 months ago in [facility].Patient denies any fevers, chills or sweats, no nausea or vomiting,denies any flank pain. MD elicited complaint: dysuria, difficulty urinating and other (vaginal burning) Pertinent past history: recurrent UTIs, interstitial cystits and other Onset (ago): day(s) (4 days) Location of symptoms: perineum and suprapubic (pressure) Severity: moderate Female Urogenital Radiation: Non-Radiating Severity scale (1-10): 5 Quality of pain: burning Consistency: constant and progressively worsening Vaginal discharge: none Vaginal bleeding: none Urinary symptoms: Dysuria, Frequency and Difficulty Urinating (burning) Exacerbating factors: urination Relieving factors: none Associated symptoms: abdominal pain (suprapubic pressure) and other (vaginal burning) Treatment prior to arrival: none Sexual activity: Yes Patient : No Possible : other (hysterectomy) Related Data Home Medications Medication Instructions Recorded Confirmed No Home Medications 07/18/20 07/18/20 Allergies Allergy/AdvReac Type Severity Reaction Status Date / Time latex Allergy Mild RASH-CONDOMS Verified 07/18/20 14:28 AND GLOVES clindamycin Allergy Hives Verified 07/18/20 14:28 lubiprostone [From Amitiza] Allergy Itching Verified 07/18/20 14:28 propoxyphene Allergy Other Verified 07/18/20 14:28 [From Darvocet-N 100] acetaminophen AdvReac Other Verified 07/18/20 14:28 amoxicillin AdvReac Chest Pain Verified 07/18/20 14:28 codeine AdvReac Nausea and Verified 07/18/20 14:28 Vomiting hydrocodone AdvReac Other Verified 07/18/20 14:28 ketorolac [From Toradol] AdvReac Palpitation Verified 07/18/20 14:28 s levofloxacin [From Levaquin] AdvReac Chest Pain Verified 07/18/20 14:28 nitrofurantoin AdvReac Chest Pain Verified 07/18/20 14:28 [From Macrobid] paroxetine [From Paxil] AdvReac Other Verified 07/18/20 14:28 Penicillins AdvReac Chest Pain Verified 07/18/20 14:28 Sulfa (Sulfonamide AdvReac Chest Pain Verified 07/18/20 14:28 Antibiotics) vancomycin AdvReac Chest Pain Verified 07/18/20 14:28 HYDROCODONE BIT AdvReac Mild TOO STRONG Uncoded 07/18/20 14:29 PAROXETINE HCL AdvReac Mild PASS OUT Uncoded 07/18/20 14:29 PROPOXYPHENE NAPSYLATE AdvReac Mild I PASS Uncoded 07/18/20 14:29 OUT Review of Systems Review of Systems: Narrative: CONSTITUTIONAL: Denies fever, chills, or sweats. EYES: Denies visual changes, redness, or discharge. ENT: Denies rhinorrhea, congestion, sore throat, or otalgia. CARDIOVASCULAR: Denies chest pain, palpitations, or edema. RESPIRATORY: Denies cough or dyspnea. GASTROINTESTINAL: Denies abdominal pain, nausea, vomiting, or diarrhea. GENITOURINARY: positive dysuria no visual hematuria. SKIN: Denies rash or itching. MUSCULOSKELETAL: Denies back pain, joint pain, or myalgia. NEUROLOGIC: Denies headache, numbness, or weakness. PSYCHIATRIC: Denies anxiety or depression. All systems reviewed & are unremarkable except as noted in HPI and below [facility] Social History Social History Smoking status: Former smoker Second hand tobacco smoke exposure: No Smoking end date: 11/17/06 Alcohol intake: never Substance use: never Gender identity (if verbali
== END 2020-07-18 15:20 | disposition home or self-care (01) ==
PROVIDERS: Emergency Provider Registered Nurse; PCP Family Medicine
DX: N30.90 Cystitis, unspecified without hematuria (principal); Z87.891 Personal history of nicotine dependence
CPT/HCPCS: 81003; 87086; 87088; 99213; G0463

== ENCOUNTER 2020-07-26 14:51 | Emergency (ER) | payer OTHER, SELFPAY ==
[2020-07-26 14:59] VITALS: BP 113/72; PULSE 76; RESP 16; TEMP 36.6; O2SAT 100
--- NOTE | 2020-07-26 15:39 | ED.FEMALEGU ---
HPI - Female Genitourinary General Chief complaint: Urogenital-Female Stated complaint: uti symptoms Source: patient and RN notes reviewed Limitations: no limitations History of Present Illness HPI Narrative: The patient, who is on relatively few medications, presents with recurrent bladder concerns. The patient has more than multiple frequent visits for urinary complaints and she is likely somatic symptom/somatoform disorder. She comments she has irritable bowel and interstitial cystitis, for which in past I reviewed her [facility] records of a cystoscopy-- that was noncontributory. She has had past noncontributory abdominal CT scans and ultrasounds [2018 CT on file]; she has had bimonthly visits this year for complaints of cystitis, dysuria, vaginal discharge, micro hematuria, interstitial cystitis. Today she comments that her urine looked darker, related to the having loose stools [from restaurant food like [employer]]. The loose stools have since resolved, as she typically is constipated from her IBS [and is on prn PEG]. No fever, N/V/D, frequency/urgency/dysuria/hematuria, loss of taste/smell, sore throat, cough, chest pains Related Data Home Medications Medication Instructions Recorded Confirmed No Home Medications 07/18/20 07/18/20 Allergies Allergy/AdvReac Type Severity Reaction Status Date / Time latex Allergy Mild RASH-CONDOMS Verified 07/18/20 14:28 AND GLOVES clindamycin Allergy Hives Verified 07/18/20 14:28 lubiprostone [From Amitiza] Allergy Itching Verified 07/18/20 14:28 propoxyphene Allergy Other Verified 07/18/20 14:28 [From Darvocet-N 100] acetaminophen AdvReac Other Verified 07/18/20 14:28 amoxicillin AdvReac Chest Pain Verified 07/18/20 14:28 codeine AdvReac Nausea and Verified 07/18/20 14:28 Vomiting hydrocodone AdvReac Other Verified 07/18/20 14:28 ketorolac [From Toradol] AdvReac Palpitation Verified 07/18/20 14:28 s levofloxacin [From Levaquin] AdvReac Chest Pain Verified 07/18/20 14:28 nitrofurantoin AdvReac Chest Pain Verified 07/18/20 14:28 [From Macrobid] paroxetine [From Paxil] AdvReac Other Verified 07/18/20 14:28 Penicillins AdvReac Chest Pain Verified 07/18/20 14:28 Sulfa (Sulfonamide AdvReac Chest Pain Verified 07/18/20 14:28 Antibiotics) vancomycin AdvReac Chest Pain Verified 07/18/20 14:28 HYDROCODONE BIT AdvReac Mild TOO STRONG Uncoded 07/18/20 14:29 PAROXETINE HCL AdvReac Mild PASS OUT Uncoded 07/18/20 14:29 PROPOXYPHENE NAPSYLATE AdvReac Mild I PASS Uncoded 07/18/20 14:29 OUT Review of Systems Review of Systems: Narrative: General/Constitutional: No weight loss,fever Eyes: N0: Redness,discharge Ears/Nose/Throat: No: Epistaxis,ear discharge Respiratory: Denies: Hemoptysis Gastrointestinal: No Vomiting, Bleeding-rectal Skin: No Lumps, eruption Neurologic: No Focal Weakness,Sz Hematologic: Denies: Petechiae/Purpura Psychiatric: No: Suicida ideationl All Other Systems: Reviewed and Negative [facility] Social History Social History Smoking status: Former smoker Second hand tobacco smoke exposure: No Smoking end date: 11/17/06 Alcohol intake: never Substance use: never Gender identity (if verbalized by the patient): Female Comments At time of signature, agree with nursing past medical, surgical, social and family history. There is no relevant family history pertinent to the presenting complaint Exam Narrative: Exam Narrative: General Appearance: Well appearing, Conjunctiva clear Ears: External ear normal Nose: Normal nose Mouth/Throat: Normal appearing, Supple Respiratory: Airway patent, No respiratory distress Abdomen: Soft, Non-tender, Musculoskeletal: Full ROM Skin: Warm, Dry Neurological: A&O x3, Normal affect Course Vital Signs Vital signs: Vital Signs Temperature 98 F 07/26/20 14:59 Pulse Rate 76 07/26/20 14:59 Respira
== END 2020-07-26 15:50 | disposition home or self-care (01) ==
PROVIDERS: Emergency Provider Emergency Medicine; PCP Family Medicine
DX: F45.1 Undifferentiated somatoform disorder (principal); Z71.1 Person with feared health complaint in whom no diagnosis is made; K58.9 Irritable bowel syndrome, unspecified; Z87.891 Personal history of nicotine dependence
CPT/HCPCS: 81003; 99212; G0463

== ENCOUNTER 2020-08-12 10:49 | Emergency (ER) | payer OTHER, SELFPAY ==
[2020-08-12 10:52] VITALS: BP 127/78; PULSE 80; RESP 12; TEMP 36.6; O2SAT 100
--- NOTE | 2020-08-12 10:59 | ED.FEMALEGU ---
HPI - Female Genitourinary General Chief complaint: Urogenital-Female Stated complaint: UTI SYMPTOMS Time Seen by Provider: 08/12/20 11:00 Source: patient and RN notes reviewed History of Present Illness HPI Narrative: Patient is a 45-year-old female who presents the urgent care with complaints of a possible UTI. Patient states that she has lower bilateral abdominal pressure. States that it could be her IBS flaring up or the fact that she got wasted last night . Patient states that she woke up with the symptoms this morning and denies of any nausea, vomiting, fever. Patient has not taken anything for her symptoms. No other acute complaints. No acute distress noted. Patient aware of the plan of care. Some parts of this dictation were generated by voice recognition software and may contain typographical and/or grammatical inaccuracies. Related Data Home Medications Medication Instructions Recorded Confirmed Laxative PEG 3350 PRN PRN 08/12/20 Allergies Allergy/AdvReac Type Severity Reaction Status Date / Time latex Allergy Mild RASH-CONDOMS Verified 08/12/20 10:53 AND GLOVES clindamycin Allergy Hives Verified 08/12/20 10:53 lubiprostone [From Amitiza] Allergy Itching Verified 08/12/20 10:53 propoxyphene Allergy Other Verified 08/12/20 10:53 [From Darvocet-N 100] acetaminophen AdvReac Other Verified 08/12/20 10:53 amoxicillin AdvReac Chest Pain Verified 08/12/20 10:53 codeine AdvReac Nausea and Verified 08/12/20 10:53 Vomiting hydrocodone AdvReac Other Verified 08/12/20 10:53 ketorolac [From Toradol] AdvReac Palpitation Verified 08/12/20 10:53 s levofloxacin [From Levaquin] AdvReac Chest Pain Verified 08/12/20 10:53 nitrofurantoin AdvReac Chest Pain Verified 08/12/20 10:53 [From Macrobid] paroxetine [From Paxil] AdvReac Other Verified 08/12/20 10:53 Penicillins AdvReac Chest Pain Verified 08/12/20 10:53 Sulfa (Sulfonamide AdvReac Chest Pain Verified 08/12/20 10:53 Antibiotics) vancomycin AdvReac Chest Pain Verified 08/12/20 10:53 HYDROCODONE BIT AdvReac Mild TOO STRONG Uncoded 07/18/20 14:29 PAROXETINE HCL AdvReac Mild PASS OUT Uncoded 07/18/20 14:29 PROPOXYPHENE NAPSYLATE AdvReac Mild I PASS Uncoded 07/18/20 14:29 OUT Review of Systems Review of Systems: Narrative: CONSTITUTIONAL: Denies fever, chills, or sweats. EYES: Denies visual changes, redness, or discharge. ENT: Denies rhinorrhea, congestion, sore throat, or otalgia. CARDIOVASCULAR: Denies chest pain, palpitations, or edema. RESPIRATORY: Denies cough or dyspnea. GASTROINTESTINAL: Denies nausea, vomiting, or diarrhea. Reports of suprapubic pressure GENITOURINARY: Denies dysuria or hematuria. SKIN: Denies rash or itching. MUSCULOSKELETAL: Denies back pain, joint pain, or myalgia. NEUROLOGIC: Denies headache, numbness, or weakness. All other systems reviewed are negative, except as documented in HPI. [facility] Social History Social History Smoking status: Former smoker Second hand tobacco smoke exposure: No Smoking end date: 11/17/06 Alcohol intake: never Substance use: never Gender identity (if verbalized by the patient): Female Comments At the time of my signature, I reviewed and agree with the nursing past medical, surgical, social, and family history. There is no relevant family history pertinent to the patient complaint. Exam Narrative: Exam Narrative: GENERAL: This is a well-nourished, well-developed patient, in no apparent distress. HEAD: normocephalic, atraumatic. EYES: PERRL. Sclera clear/white. Vision is grossly intact. EARS: External ears normal NOSE: External nose normal with no obvious nasal discharge, nares without redness, no rhinorrhea. THROAT: Mucous membranes moist NECK: Neck supple GASTROINTESTINAL: Abdomen soft, mild super pubic pressure, nondistended. Bowel sounds are active. SKIN: warm, intact with no suspicious lesi
== END 2020-08-12 11:20 | disposition home or self-care (01) ==
PROVIDERS: Emergency Provider Nurse Practitioner Family; PCP Family Medicine
DX: R10.30 Lower abdominal pain, unspecified (principal); Z87.891 Personal history of nicotine dependence
CPT/HCPCS: 81003; 99212; G0463

== ENCOUNTER 2020-08-22 11:01 | Emergency (ER) | payer OTHER, SELFPAY ==
--- NOTE | 2020-08-22 11:04 | ED.FEMALEGU ---
HPI - Female Genitourinary General Chief complaint: Urogenital-Female Stated complaint: burning with urination/frequency with urination Time Seen by Provider: 08/22/20 11:04 Source: patient and RN notes reviewed History of Present Illness HPI Narrative: Patient is a 45-year-old female who presents the urgent care with complaints of her typical burning with urination, frequency and urgency. Patient was just seen at another facility 10 days ago and her urine was not indicative of a urinary tract infection at that time. Patient was advised to follow-up with her urologist due to increased symptoms of cystitis. Patient has not followed up with her urologist as suggested. Patient denies of any new symptoms, from those that were occurring 10 days ago. Denies of any fever, nausea, vomiting. Patient has not taken anything [id number] for her symptoms. No other acute complaints. No acute distress noted. Patient aware of the plan of care. Some parts of this dictation were generated by voice recognition software and may contain typographical and/or grammatical inaccuracies. Related Data Home Medications Medication Instructions Recorded Confirmed peg 3350-electrolytes See Rx Instructions .ROUTE .COMPLEX 08/22/20 08/22/20 Allergies Allergy/AdvReac Type Severity Reaction Status Date / Time latex Allergy Mild RASH-CONDOMS Verified 08/22/20 11:20 AND GLOVES clindamycin Allergy Hives Verified 08/22/20 11:20 lubiprostone [From Amitiza] Allergy Itching Verified 08/22/20 11:20 propoxyphene Allergy Other Verified 08/22/20 11:20 [From Darvocet-N 100] acetaminophen AdvReac Other Verified 08/22/20 11:20 amoxicillin AdvReac Chest Pain Verified 08/22/20 11:20 codeine AdvReac Nausea and Verified 08/22/20 11:20 Vomiting hydrocodone AdvReac Other Verified 08/22/20 11:20 ketorolac [From Toradol] AdvReac Palpitation Verified 08/22/20 11:20 s levofloxacin [From Levaquin] AdvReac Chest Pain Verified 08/22/20 11:20 nitrofurantoin AdvReac Chest Pain Verified 08/22/20 11:20 [From Macrobid] paroxetine [From Paxil] AdvReac Other Verified 08/22/20 11:20 Penicillins AdvReac Chest Pain Verified 08/22/20 11:20 Sulfa (Sulfonamide AdvReac Chest Pain Verified 08/22/20 11:20 Antibiotics) vancomycin AdvReac Chest Pain Verified 08/22/20 11:20 HYDROCODONE BIT AdvReac Mild TOO STRONG Uncoded 07/18/20 14:29 PAROXETINE HCL AdvReac Mild PASS OUT Uncoded 07/18/20 14:29 PROPOXYPHENE NAPSYLATE AdvReac Mild I PASS Uncoded 07/18/20 14:29 OUT Review of Systems Review of Systems: Narrative: CONSTITUTIONAL: Denies fever, chills, or sweats. EYES: Denies visual changes, redness, or discharge. ENT: Denies rhinorrhea, congestion, sore throat, or otalgia. CARDIOVASCULAR: Denies chest pain, palpitations, or edema. RESPIRATORY: Denies cough or dyspnea. GASTROINTESTINAL: Denies abdominal pain, nausea, vomiting, or diarrhea. GENITOURINARY: Reports of dysuria and urgency/frequency SKIN: Denies rash or itching. MUSCULOSKELETAL: Denies back pain, joint pain, or myalgia. NEUROLOGIC: Denies headache, numbness, or weakness. All other systems reviewed are negative, except as documented in HPI. PMFSH Social History Social History Smoking status: Former smoker Second hand tobacco smoke exposure: No Smoking end date: 11/17/06 Alcohol intake: never Substance use: never Gender identity (if verbalized by the patient): Female Comments At the time of my signature, I reviewed and agree with the nursing past medical, surgical, social, and family history. There is no relevant family history pertinent to the patient complaint. Exam Narrative: Exam Narrative: GENERAL: This is a well-nourished, well-developed patient, in no apparent distress. HEAD: normocephalic, atraumatic. EYES: PERRL. Sclera clear/white. Vision is grossly intact. EARS: External ears normal NOSE: External nose
[2020-08-22 11:20] VITALS: BP 125/84; PULSE 65; RESP 18; TEMP 36.7; O2SAT 100
== END 2020-08-22 11:45 | disposition home or self-care (01) ==
PROVIDERS: Emergency Provider Nurse Practitioner Family; PCP Family Medicine
DX: N30.90 Cystitis, unspecified without hematuria (principal); Z87.891 Personal history of nicotine dependence
CPT/HCPCS: 81003; 99212; G0463

== ENCOUNTER 2020-09-26 14:51 | Emergency (ER) | payer OTHER, SELFPAY ==
[2020-09-26 14:58] VITALS: BP 103/71; PULSE 73; RESP 18; TEMP 36.2; O2SAT 98
--- NOTE | 2020-09-26 15:00 | ED.FEMALEGU ---
HPI - Female Genitourinary General Chief complaint: Urogenital-Female Stated complaint: frequent urination/burning with urination Source: patient and RN notes reviewed Mode of arrival: ambulatory Limitations: no limitations History of Present Illness HPI Narrative: 45-year-old female with history of interstitial cystitis presents for concern with urine frequency and dysuria. MD elicited complaint: UTI Related Data Home Medications Medication Instructions Recorded Confirmed peg 3350-electrolytes See Rx Instructions .ROUTE .COMPLEX 08/22/20 08/22/20 Allergies Allergy/AdvReac Type Severity Reaction Status Date / Time latex Allergy Mild RASH-CONDOMS Verified 09/26/20 15:04 AND GLOVES clindamycin Allergy Hives Verified 09/26/20 15:04 lubiprostone [From Amitiza] Allergy Itching Verified 09/26/20 15:04 propoxyphene Allergy Other Verified 09/26/20 15:04 [From Darvocet-N 100] acetaminophen AdvReac Other Verified 09/26/20 15:04 amoxicillin AdvReac Chest Pain Verified 09/26/20 15:04 codeine AdvReac Nausea and Verified 09/26/20 15:04 Vomiting hydrocodone AdvReac Other Verified 09/26/20 15:04 ketorolac [From Toradol] AdvReac Palpitation Verified 09/26/20 15:04 s levofloxacin [From Levaquin] AdvReac Chest Pain Verified 09/26/20 15:04 nitrofurantoin AdvReac Chest Pain Verified 09/26/20 15:04 [From Macrobid] paroxetine [From Paxil] AdvReac Other Verified 09/26/20 15:04 Penicillins AdvReac Chest Pain Verified 09/26/20 15:04 Sulfa (Sulfonamide AdvReac Chest Pain Verified 09/26/20 15:04 Antibiotics) vancomycin AdvReac Chest Pain Verified 09/26/20 15:04 HYDROCODONE BIT AdvReac Mild TOO STRONG Uncoded 07/18/20 14:29 PAROXETINE HCL AdvReac Mild PASS OUT Uncoded 07/18/20 14:29 PROPOXYPHENE NAPSYLATE AdvReac Mild I PASS Uncoded 07/18/20 14:29 OUT Review of Systems Review of Systems: Narrative: CONSTITUTIONAL: Denies malaise, chills, sweats, or fever. CARDIOVASCULAR: Denies chest pain, palpitations RESPIRATORY: Denies cough or dyspnea. GASTROINTESTINAL: Denies abdominal pain, nausea, vomiting GENITOURINARY: Reports dysuria, frequency. Denies flank pain, urgency, or hematuria. Denies myalgia. All systems reviewed & are unremarkable except as noted in HPI and below PMFSH Past Medical History Medical History (Updated 09/26/20 @ 15:28 by Izabela Vaughan NP) Anxiety Bronchitis Constipation Depression Genitourinary disorder Interstitial cystitis, urethral dilation GERD (gastroesophageal reflux disease) Interstitial cystitis Irritable bowel syndrome Mitral valve prolapse Right hand fracture Urinary tract infection Vaginal delivery Surgical History Surgical History H/O hemorrhoidectomy H/O inguinal hernia repair H/O sinus surgery H/O tubal ligation History of facial surgery Nasal reconstruction History of hysterectomy History of orthopedic surgery Right knee, trigger release finger left hand History of tonsillectomy Family History Family History Grandparent Diabetes mellitus, Onset Age: 200 Cerebrovascular accident, Onset Age: 200 Father Family history of elevated blood lipids Carcinoma of colon Family history of coronary artery disease, Onset Age: 201 Patient's father is Grandparent Family history of malignant neoplasm Diabetes mellitus Cerebrovascular accident Hypertension Family history of cardiovascular disease Father Family history of congestive heart failure Patient's father is Hypertension Carcinoma of colon Family history of emphysema Family history of cardiovascular disease Sibling Hypertension Grandparent Diabetes mellitus Social History Social History Smoking status: Former smoker Second hand tobacco smoke exposure: No
[2020-09-26 15:04] VITALS: BP 103/71; PULSE 73; RESP 18; TEMP 36.2; O2SAT 98
== END 2020-09-26 15:30 | disposition home or self-care (01) ==
PROVIDERS: Emergency Provider Nurse Practitioner; PCP Family Medicine
DX: R30.0 Dysuria (principal); Z87.891 Personal history of nicotine dependence; K21.9 Gastro-esophageal reflux disease without esophagitis; I34.1 Nonrheumatic mitral (valve) prolapse; Z87.448 Personal history of other diseases of urinary system
CPT/HCPCS: 81003; 99212; G0463

== ENCOUNTER 2020-09-30 11:16 | Emergency (ER) | payer OTHER, SELFPAY ==
[2020-09-30 11:42] VITALS: BP 111/74; PULSE 65; RESP 18; TEMP 36.7; O2SAT 99
--- NOTE | 2020-09-30 12:02 | ED.GENADULT ---
HPI - General Adult General Chief complaint: Ear Stated complaint: ear pain/chest congestion/sinus drainage Time Seen by Provider: 09/30/20 12:02 Source: patient and RN notes reviewed Mode of arrival: ambulatory Limitations: no limitations History of Present Illness HPI narrative: 45-year-old female presents with complaints of upper respiratory infection, some facial congestion, facial pressure, and intermittent headache (not the worst of her life) for the past 14 days. Yaquelin says symptoms has increased over the past 72 hours with bilateral otalgia, right worse and pressure throughout face. Saline nasal spray and swimmers ears drops without relief. No facial swelling. Denies cough or chest congestion. Nasal congestion and rhinorrhea. No sore throat. No high fevers, drooling, neck or throat swelling. No voice change. No nausea, vomiting, or abdominal pain. Tolerating liquids well. LMP hysterectomy. Remains active. The patient reports she have not been diagnosed with COVID-19. The patient reports she is not waiting for the results of a COVID-19 lab test. The patient reports she do not have chills, weakness, or fatigue. The patient reports she do not have a new or worsening cough or shortness of breath. Denies chest pain. The patient reports she do not have any sore throat, loss of taste, and diarrhea. Denies recent traveling. Denies concerns for COVID-19 or exposures been home with limited outdoor exposure except for essential household needs and return home. At this time, patient is not suspected of having COVID-19. Some parts of this dictation were generated by voice recognition software and may contain typographical and/or grammatical inaccuracies. Related Data Home Medications Medication Instructions Recorded Confirmed peg 3350-electrolytes See Rx Instructions .ROUTE .COMPLEX 08/22/20 09/30/20 Allergies Allergy/AdvReac Type Severity Reaction Status Date / Time latex Allergy Mild RASH-CONDOMS Verified 09/26/20 15:04 AND GLOVES clindamycin Allergy Hives Verified 09/26/20 15:04 lubiprostone [From Amitiza] Allergy Itching Verified 09/26/20 15:04 propoxyphene Allergy Other Verified 09/26/20 15:04 [From Darvocet-N 100] acetaminophen AdvReac Other Verified 09/26/20 15:04 amoxicillin AdvReac Chest Pain Verified 09/26/20 15:04 codeine AdvReac Nausea and Verified 09/26/20 15:04 Vomiting hydrocodone AdvReac Other Verified 09/26/20 15:04 ketorolac [From Toradol] AdvReac Palpitation Verified 09/26/20 15:04 s levofloxacin [From Levaquin] AdvReac Chest Pain Verified 09/26/20 15:04 nitrofurantoin AdvReac Chest Pain Verified 09/26/20 15:04 [From Macrobid] paroxetine [From Paxil] AdvReac Other Verified 09/26/20 15:04 Penicillins AdvReac Chest Pain Verified 09/26/20 15:04 Sulfa (Sulfonamide AdvReac Chest Pain Verified 09/26/20 15:04 Antibiotics) vancomycin AdvReac Chest Pain Verified 09/26/20 15:04 HYDROCODONE BIT AdvReac Mild TOO STRONG Uncoded 07/18/20 14:29 PAROXETINE HCL AdvReac Mild PASS OUT Uncoded 07/18/20 14:29 PROPOXYPHENE NAPSYLATE AdvReac Mild I PASS Uncoded 07/18/20 14:29 OUT Review of Systems Review of Systems: Narrative: CONSTITUTIONAL: Denies fever, chills, sweats. EYES: Denies visual changes, redness, discharge. ENT: Complains of bilateral otalgia, rhinorrhea, congestion, facial congestion and pressure. Denies sore throat. CARDIOVASCULAR: Denies chest pain, palpitations, edema. RESPIRATORY: Denies dyspnea, wheezing, cough. GASTROINTESTINAL: Denies abdominal pain, nausea, vomiting, diarrhea. GENITOURINARY: Denies dysuria, hematuria, abnormal discharge SKIN: Denies rash or itching. MUSCULOSKELETAL: Denies acute back pain, joint pain, or myalgia. NEUROLOGIC: Denies numbness, or focal weakness. Complains of intermittent CROCKETT. PSYCHIATRIC: Denies anxiety or depression. All other systems reviewed & are unremarkable except as noted in HPI and below. PMFSH Past
== END 2020-09-30 12:19 | disposition home or self-care (01) ==
PROVIDERS: Emergency Provider Nurse Practitioner Family; PCP Family Medicine
DX: J01.00 Acute maxillary sinusitis, unspecified (principal); Z87.891 Personal history of nicotine dependence; K21.9 Gastro-esophageal reflux disease without esophagitis; I34.1 Nonrheumatic mitral (valve) prolapse
CPT/HCPCS: 99213; G0463

== ENCOUNTER 2020-12-03 10:19 | Emergency (ER) | payer OTHER, SELFPAY ==
[2020-12-03 10:29] VITALS: BP 145/77; PULSE 76; RESP 16; TEMP 36.4; O2SAT 98
[2020-12-03 10:41] VITALS: BP 145/77; PULSE 76; RESP 16; TEMP 36.4; O2SAT 98
--- NOTE | 2020-12-03 11:09 | ED.GENADULT ---
HPI - General Adult General Chief complaint: Urogenital-Female Stated complaint: Urogenital-Female Source: patient Mode of arrival: ambulatory Limitations: no limitations History of Present Illness HPI narrative: Patient presents for evaluation of pelvic cramping since 11/20/2020. She indicates that she had a urethral dilatation per urology that time. She contacted them following the procedure and let them know she was experiencing symptoms. She states they did not feel her symptoms were related to the procedure. She saw OBGYN on 12/01/20 and states she had testing at that time and had no evidence of infection. She is scheduled to see a specialist at [facility] on 01/09/21. She has a hx of interstitial cystitis and states she has been dealing with these problems for thirteen years . She states pelvic cramping occurs with urination. She has some urinary frequency but denies any other urinary symptoms. No fever, chills, vaginal bleeding or discharge. History of hysterectomy. No additional complaints or concerns. Related Data Home Medications Medication Instructions Recorded Confirmed No Home Medications 12/03/20 12/03/20 Allergies Allergy/AdvReac Type Severity Reaction Status Date / Time latex Allergy Mild RASH-CONDOMS Verified 12/03/20 10:40 AND GLOVES clindamycin Allergy Hives Verified 12/03/20 10:40 lubiprostone [From Amitiza] Allergy Itching Verified 12/03/20 10:40 propoxyphene Allergy Other Verified 12/03/20 10:40 [From Darvocet-N 100] acetaminophen AdvReac Other Verified 12/03/20 10:40 amoxicillin AdvReac Chest Pain Verified 12/03/20 10:40 codeine AdvReac Nausea and Verified 12/03/20 10:40 Vomiting hydrocodone AdvReac Other Verified 12/03/20 10:40 ketorolac [From Toradol] AdvReac Palpitation Verified 12/03/20 10:40 s levofloxacin [From Levaquin] AdvReac Chest Pain Verified 12/03/20 10:40 nitrofurantoin AdvReac Chest Pain Verified 12/03/20 10:40 [From Macrobid] paroxetine [From Paxil] AdvReac Other Verified 12/03/20 10:40 Penicillins AdvReac Chest Pain Verified 12/03/20 10:40 Sulfa (Sulfonamide AdvReac Chest Pain Verified 12/03/20 10:40 Antibiotics) vancomycin AdvReac Chest Pain Verified 12/03/20 10:40 HYDROCODONE BIT AdvReac Mild TOO STRONG Uncoded 10/01/20 20:01 PAROXETINE HCL AdvReac Mild PASS OUT Uncoded 10/01/20 20:01 PROPOXYPHENE NAPSYLATE AdvReac Mild I PASS Uncoded 10/01/20 20:01 OUT Review of Systems Review of Systems: Narrative: CONSTITUTIONAL: Denies fever, chills, or sweats. EYES: Denies visual changes, redness, or discharge. ENT: Denies rhinorrhea, congestion, sore throat, or otalgia. CARDIOVASCULAR: Denies chest pain, palpitations, or edema. RESPIRATORY: Denies cough or dyspnea. GASTROINTESTINAL: Denies abdominal pain, nausea, vomiting, or diarrhea. GENITOURINARY: Denies dysuria or hematuria. Reports pelvic cramping and pressure SKIN: Denies rash or itching. MUSCULOSKELETAL: Denies back pain, joint pain, or myalgia. NEUROLOGIC: Denies headache, numbness, dizziness, or weakness. PSYCHIATRIC: Denies anxiety or depression. [facility] Past Medical History Medical History Anxiety Bronchitis Constipation Depression Genitourinary disorder Interstitial cystitis, urethral dilation GERD (gastroesophageal reflux disease) Interstitial cystitis Irritable bowel syndrome Mitral valve prolapse Right hand fracture Urinary tract infection Vaginal delivery Surgical History Surgical History H/O hemorrhoidectomy H/O inguinal hernia repair H/O sinus surgery H/O tubal ligation History of facial surgery Nasal reconstruction History of hysterectomy History of orthopedic surgery Right knee, trigger release finger left hand History of tonsillectomy History of urinary tract surgery Family History Family History (Reviewed 12/03/20 @ 11:10 by Elvis Valdez
== END 2020-12-03 11:22 | disposition home or self-care (01) ==
PROVIDERS: Emergency Provider Nurse Practitioner; PCP Family Medicine
DX: N30.10 Interstitial cystitis (chronic) without hematuria (principal); R31.9 Hematuria, unspecified; Z87.891 Personal history of nicotine dependence; K21.9 Gastro-esophageal reflux disease without esophagitis; I34.1 Nonrheumatic mitral (valve) prolapse
CPT/HCPCS: 81003; 87086; 87088; 99213; G0463

== ENCOUNTER 2020-12-11 14:44 | Emergency (ER) | payer OTHER, SELFPAY ==
--- NOTE | 2020-12-11 14:49 | ED.GENADULT ---
HPI - General Adult General Chief complaint: Urogenital-Female Stated complaint: Urogenital-Female Time Seen by Provider: 12/11/20 14:49 Source: patient Mode of arrival: ambulatory Limitations: no limitations History of Present Illness HPI narrative: 45-year-old female patient presents to the [facility] with complaints of pelvic floor pressure, urinary frequency and urinary spasms. Patient does have history of chronic interstitial cystitis. Patient is here often with complaints of flaring up. Patient states that she did have her urethra dilated early November and since then has been having similar symptoms. Patient does see a specialist at [place] at the end of December for the pelvic floor pain. Denies fevers, body aches or chills. Denies any pain with urination. Related Data Allergies Allergy/AdvReac Type Severity Reaction Status Date / Time latex Allergy Mild RASH-CONDOMS Verified 12/03/20 10:40 AND GLOVES clindamycin Allergy Hives Verified 12/03/20 10:40 lubiprostone [From Amitiza] Allergy Itching Verified 12/03/20 10:40 propoxyphene Allergy Other Verified 12/03/20 10:40 [From Darvocet-N 100] acetaminophen AdvReac Other Verified 12/03/20 10:40 amoxicillin AdvReac Chest Pain Verified 12/03/20 10:40 codeine AdvReac Nausea and Verified 12/03/20 10:40 Vomiting hydrocodone AdvReac Other Verified 12/03/20 10:40 ketorolac [From Toradol] AdvReac Palpitation Verified 12/03/20 10:40 s levofloxacin [From Levaquin] AdvReac Chest Pain Verified 12/03/20 10:40 nitrofurantoin AdvReac Chest Pain Verified 12/03/20 10:40 [From Macrobid] paroxetine [From Paxil] AdvReac Other Verified 12/03/20 10:40 Penicillins AdvReac Chest Pain Verified 12/03/20 10:40 Sulfa (Sulfonamide AdvReac Chest Pain Verified 12/03/20 10:40 Antibiotics) vancomycin AdvReac Chest Pain Verified 12/03/20 10:40 HYDROCODONE BIT AdvReac Mild TOO STRONG Uncoded 10/01/20 20:01 PAROXETINE HCL AdvReac Mild PASS OUT Uncoded 10/01/20 20:01 PROPOXYPHENE NAPSYLATE AdvReac Mild I PASS Uncoded 10/01/20 20:01 OUT Review of Systems Review of Systems: Narrative: CONSTITUTIONAL: Denies fever, chills, or sweats. EYES: Denies visual changes, redness, or discharge. ENT: Denies rhinorrhea, congestion, sore throat, or otalgia. CARDIOVASCULAR: Denies chest pain, palpitations, or edema. RESPIRATORY: Denies cough or dyspnea. GASTROINTESTINAL: Denies abdominal pain, nausea, vomiting, or diarrhea. GENITOURINARY: Denies dysuria or hematuria. Positive urinary spasms and frequency in urination x4 days SKIN: Denies rash or itching. MUSCULOSKELETAL: Denies back pain, joint pain, or myalgia. NEUROLOGIC: Denies headache, numbness, or weakness. PSYCHIATRIC: Denies anxiety or depression. [facility] Past Medical History Medical History Anxiety Bronchitis Constipation Depression Genitourinary disorder Interstitial cystitis, urethral dilation GERD (gastroesophageal reflux disease) Interstitial cystitis Irritable bowel syndrome Mitral valve prolapse Right hand fracture Urinary tract infection Vaginal delivery Surgical History Surgical History H/O hemorrhoidectomy H/O inguinal hernia repair H/O sinus surgery H/O tubal ligation History of facial surgery Nasal reconstruction History of hysterectomy History of orthopedic surgery Right knee, trigger release finger left hand History of tonsillectomy History of urinary tract surgery Family History Family History Grandparent Diabetes mellitus, Onset Age: 200 Cerebrovascular accident, Onset Age: 200 Father Family history of elevated blood lipids Carcinoma of colon Family history of coronary artery disease, Onset Age: 201 Patient's father is Grandparent Family history of malignant neoplasm Diabetes me
[2020-12-11 14:55] VITALS: BP 129/84; PULSE 86; RESP 20; TEMP 36.6; O2SAT 99
== END 2020-12-11 15:23 | disposition home or self-care (01) ==
PROVIDERS: Emergency Provider Nurse Practitioner Family; PCP Family Medicine
DX: N30.10 Interstitial cystitis (chronic) without hematuria (principal); Z87.891 Personal history of nicotine dependence; K21.9 Gastro-esophageal reflux disease without esophagitis; I34.1 Nonrheumatic mitral (valve) prolapse; F41.9 Anxiety disorder, unspecified
CPT/HCPCS: 81003; 87086; 87088; 99213; G0463

== ENCOUNTER 2020-12-24 09:24 | Emergency (ER) | payer OTHER, SELFPAY ==
[2020-12-24 09:33] VITALS: BP 127/85; RESP 16; TEMP 36.6; O2SAT 100
--- NOTE | 2020-12-24 09:34 | ED.FEMALEGU ---
HPI - Female Genitourinary General Chief complaint: Urogenital-Female Stated complaint: POS UTI Time Seen by Provider: 12/24/20 09:35 Source: patient and RN notes reviewed History of Present Illness HPI Narrative: Patient is a 45-year-old female who presents the urgent care with complaints of a possible UTI. States that she has frequency and fullness of the bladder . Patient does have chronic UTIs and does have a follow-up with a [employer]. Patient denies any fever, chills, nausea, vomiting, abdominal pain or back pain. Patient denies of any use of [id number] medication for her symptoms. No other acute complaints. No acute distress noted. Patient aware of the plan of care. Some parts of this dictation were generated by voice recognition software and may contain typographical and/or grammatical inaccuracies. Related Data Allergies Allergy/AdvReac Type Severity Reaction Status Date / Time latex Allergy Mild RASH-CONDOMS Verified 12/03/20 10:40 AND GLOVES clindamycin Allergy Hives Verified 12/03/20 10:40 lubiprostone [From Amitiza] Allergy Itching Verified 12/03/20 10:40 propoxyphene Allergy Other Verified 12/03/20 10:40 [From Darvocet-N 100] acetaminophen AdvReac Other Verified 12/03/20 10:40 amoxicillin AdvReac Chest Pain Verified 12/03/20 10:40 codeine AdvReac Nausea and Verified 12/03/20 10:40 Vomiting hydrocodone AdvReac Other Verified 12/03/20 10:40 ketorolac [From Toradol] AdvReac Palpitation Verified 12/03/20 10:40 s levofloxacin [From Levaquin] AdvReac Chest Pain Verified 12/03/20 10:40 nitrofurantoin AdvReac Chest Pain Verified 12/03/20 10:40 [From Macrobid] paroxetine [From Paxil] AdvReac Other Verified 12/03/20 10:40 Penicillins AdvReac Chest Pain Verified 12/03/20 10:40 Sulfa (Sulfonamide AdvReac Chest Pain Verified 12/03/20 10:40 Antibiotics) vancomycin AdvReac Chest Pain Verified 12/03/20 10:40 HYDROCODONE BIT AdvReac Mild TOO STRONG Uncoded 10/01/20 20:01 PAROXETINE HCL AdvReac Mild PASS OUT Uncoded 10/01/20 20:01 PROPOXYPHENE NAPSYLATE AdvReac Mild I PASS Uncoded 10/01/20 20:01 OUT Review of Systems Review of Systems: Narrative: CONSTITUTIONAL: Denies fever, chills, or sweats. EYES: Denies visual changes, redness, or discharge. ENT: Denies rhinorrhea, congestion, sore throat, or otalgia. CARDIOVASCULAR: Denies chest pain, palpitations, or edema. RESPIRATORY: Denies cough or dyspnea. GASTROINTESTINAL: Denies abdominal pain, nausea, vomiting, or diarrhea. GENITOURINARY: Reports of urinary frequency and bladder fullness SKIN: Denies rash or itching. MUSCULOSKELETAL: Denies back pain, joint pain, or myalgia. NEUROLOGIC: Denies headache, numbness, or weakness. All other systems reviewed are negative, except as documented in HPI. [facility] Past Medical History Medical History Anxiety Bronchitis Constipation Depression Genitourinary disorder Interstitial cystitis, urethral dilation GERD (gastroesophageal reflux disease) Interstitial cystitis Irritable bowel syndrome Mitral valve prolapse Right hand fracture Urinary tract infection Vaginal delivery Surgical History Surgical History H/O hemorrhoidectomy H/O inguinal hernia repair H/O sinus surgery H/O tubal ligation History of facial surgery Nasal reconstruction History of hysterectomy History of orthopedic surgery Right knee, trigger release finger left hand History of tonsillectomy History of urinary tract surgery Family History Family History Grandparent Diabetes mellitus, Onset Age: 200 Cerebrovascular accident, Onset Age: 200 Father Family history of elevated blood lipids Carcinoma of colon Family history of coronary artery disease, Onset Age: 201 Patient's father is Grandparent Family history of
== END 2020-12-24 10:16 | disposition home or self-care (01) ==
PROVIDERS: Emergency Provider Nurse Practitioner Family; PCP Family Medicine
DX: N30.90 Cystitis, unspecified without hematuria (principal); Z87.891 Personal history of nicotine dependence; K21.9 Gastro-esophageal reflux disease without esophagitis; I34.1 Nonrheumatic mitral (valve) prolapse
CPT/HCPCS: 81003; 99212; G0463

== ENCOUNTER 2021-01-21 11:16 | Emergency (ER) | payer OTHER, SELFPAY ==
[2021-01-21 11:22] VITALS: BP 105/76; PULSE 71; RESP 20; TEMP 37.1; O2SAT 100
--- NOTE | 2021-01-21 11:52 | ED.FEMALEGU ---
HPI - Female Genitourinary General Chief complaint: Urogenital-Female Stated complaint: POS UTI Time Seen by Provider: 01/21/21 11:34 Source: patient, RN notes reviewed and old records reviewed Mode of arrival: ambulatory Limitations: no limitations History of Present Illness HPI Narrative: Patient presents today with a 5-day history of urinary frequency and bladder spasms. She has an extensive [facility] history related to urinary issues. History of interstitial cystitis and frequent UTIs. Her last several urine cultures have been negative. She is currently undergoing pelvic floor physical therapy and rectal floor physical therapy at [facility]. Related Data Allergies Allergy/AdvReac Type Severity Reaction Status Date / Time latex Allergy Mild RASH-CONDOMS Verified 12/03/20 10:40 AND GLOVES clindamycin Allergy Hives Verified 12/03/20 10:40 lubiprostone [From Amitiza] Allergy Itching Verified 12/03/20 10:40 propoxyphene Allergy Other Verified 12/03/20 10:40 [From Darvocet-N 100] acetaminophen AdvReac Other Verified 12/03/20 10:40 amoxicillin AdvReac Chest Pain Verified 12/03/20 10:40 codeine AdvReac Nausea and Verified 12/03/20 10:40 Vomiting hydrocodone AdvReac Other Verified 12/03/20 10:40 ketorolac [From Toradol] AdvReac Palpitation Verified 12/03/20 10:40 s levofloxacin [From Levaquin] AdvReac Chest Pain Verified 12/03/20 10:40 nitrofurantoin AdvReac Chest Pain Verified 12/03/20 10:40 [From Macrobid] paroxetine [From Paxil] AdvReac Other Verified 12/03/20 10:40 Penicillins AdvReac Chest Pain Verified 12/03/20 10:40 Sulfa (Sulfonamide AdvReac Chest Pain Verified 12/03/20 10:40 Antibiotics) vancomycin AdvReac Chest Pain Verified 12/03/20 10:40 HYDROCODONE BIT AdvReac Mild TOO STRONG Uncoded 10/01/20 20:01 PAROXETINE HCL AdvReac Mild PASS OUT Uncoded 10/01/20 20:01 PROPOXYPHENE NAPSYLATE AdvReac Mild I PASS Uncoded 10/01/20 20:01 OUT Review of Systems Review of Systems: Narrative: CONSTITUTIONAL: Denies body aches, fever, chills, or sweats. EYES: Denies visual changes, redness, or discharge. ENT: Denies rhinorrhea, congestion, sore throat, or otalgia. CARDIOVASCULAR: Denies chest pain, palpitations, or edema. RESPIRATORY: Denies cough or dyspnea. GASTROINTESTINAL: Denies abdominal pain, nausea, vomiting, or diarrhea. GENITOURINARY: Denies dysuria or hematuria.+ Urinary frequency, bladder spasms SKIN: Denies rash, itching, or wounds. MUSCULOSKELETAL: Denies back pain, joint pain, or myalgia. NEUROLOGIC: Denies headache, numbness, tingling, or weakness. PSYCH: Denies depression or anxiety. [facility] Past Medical History Medical History Anxiety Bronchitis Constipation Depression Genitourinary disorder Interstitial cystitis, urethral dilation GERD (gastroesophageal reflux disease) Interstitial cystitis Irritable bowel syndrome Mitral valve prolapse Right hand fracture Urinary tract infection Vaginal delivery Surgical History Surgical History H/O hemorrhoidectomy H/O inguinal hernia repair H/O sinus surgery H/O tubal ligation History of facial surgery Nasal reconstruction History of hysterectomy History of orthopedic surgery Right knee, trigger release finger left hand History of tonsillectomy History of urinary tract surgery Family History Family History Grandparent Diabetes mellitus, Onset Age: 200 Cerebrovascular accident, Onset Age: 200 Father Family history of elevated blood lipids Carcinoma of colon Family history of coronary artery disease, Onset Age: 201 Patient's father is Grandparent Family history of malignant neoplasm Diabetes mellitus Cerebrovascular accident Hypertension Family history of cardiovascular disease Father Family his
== END 2021-01-21 11:58 | disposition home or self-care (01) ==
PROVIDERS: Emergency Provider Nurse Practitioner; PCP Family Medicine
DX: N30.10 Interstitial cystitis (chronic) without hematuria (principal); Z87.891 Personal history of nicotine dependence; K21.9 Gastro-esophageal reflux disease without esophagitis; I34.1 Nonrheumatic mitral (valve) prolapse
CPT/HCPCS: 81003; 99212; G0463

== ENCOUNTER 2021-02-04 14:44 | Emergency (ER) | payer OTHER, SELFPAY ==
[2021-02-04 15:01] VITALS: BP 121/75; PULSE 85; RESP 18; TEMP 36.3; O2SAT 99
--- NOTE | 2021-02-04 15:01 | ED.FEMALEGU ---
HPI - Female Genitourinary General Chief complaint: Urogenital-Female Stated complaint: Urogenital-Female Time Seen by Provider: 02/04/21 15:02 Source: patient and RN notes reviewed History of Present Illness HPI Narrative: Patient is a 46-year-old female who presents the urgent care with complaints of a 5-day history of urinary frequency, urgency, dysuria. Patient does have chronic interstitial cystitis and was also seen on January 21 with a negative urine analysis. Patient states she did follow-up with her urologist on January 09 for her normal follow-up exam. Patient denies of any hematuria, abdominal pain, nausea, vomiting, low back pain. No other acute complaints. Patient not take anything [id number] for her symptoms. No acute distress noted. Patient aware of the plan of care. Some parts of this dictation were generated by voice recognition software and may contain typographical and/or grammatical inaccuracies. Related Data Home Medications Medication Instructions Recorded Confirmed No Home Medications 02/04/21 02/04/21 Allergies Allergy/AdvReac Type Severity Reaction Status Date / Time latex Allergy Mild RASH-CONDOMS Verified 02/04/21 15:07 AND GLOVES clindamycin Allergy Hives Verified 02/04/21 15:07 lubiprostone [From Amitiza] Allergy Itching Verified 02/04/21 15:07 propoxyphene Allergy Other Verified 02/04/21 15:07 [From Darvocet-N 100] acetaminophen AdvReac Other Verified 02/04/21 15:07 amoxicillin AdvReac Chest Pain Verified 02/04/21 15:07 codeine AdvReac Nausea and Verified 02/04/21 15:07 Vomiting hydrocodone AdvReac Other Verified 02/04/21 15:07 ketorolac [From Toradol] AdvReac Palpitation Verified 02/04/21 15:07 s levofloxacin [From Levaquin] AdvReac Chest Pain Verified 02/04/21 15:07 nitrofurantoin AdvReac Chest Pain Verified 02/04/21 15:07 [From Macrobid] paroxetine [From Paxil] AdvReac Other Verified 02/04/21 15:07 Penicillins AdvReac Chest Pain Verified 02/04/21 15:07 Sulfa (Sulfonamide AdvReac Chest Pain Verified 02/04/21 15:07 Antibiotics) vancomycin AdvReac Chest Pain Verified 02/04/21 15:07 HYDROCODONE BIT AdvReac Mild TOO STRONG Uncoded 02/04/21 15:07 PAROXETINE HCL AdvReac Mild PASS OUT Uncoded 02/04/21 15:07 PROPOXYPHENE NAPSYLATE AdvReac Mild I PASS Uncoded 02/04/21 15:07 OUT Review of Systems Review of Systems: Narrative: CONSTITUTIONAL: Denies fever, chills, or sweats. EYES: Denies visual changes, redness, or discharge. ENT: Denies rhinorrhea, congestion, sore throat, or otalgia. CARDIOVASCULAR: Denies chest pain, palpitations, or edema. RESPIRATORY: Denies cough or dyspnea. GASTROINTESTINAL: Denies abdominal pain, nausea, vomiting, or diarrhea. GENITOURINARY: Reports of dysuria, urinary frequency/urgency/mild suprapubic pressure SKIN: Denies rash or itching. MUSCULOSKELETAL: Denies back pain, joint pain, or myalgia. NEUROLOGIC: Denies headache, numbness, or weakness. All other systems reviewed are negative, except as documented in HPI. [facility] Past Medical History Medical History Anxiety Bronchitis Constipation Depression Genitourinary disorder Interstitial cystitis, urethral dilation GERD (gastroesophageal reflux disease) Interstitial cystitis Irritable bowel syndrome Mitral valve prolapse Right hand fracture Urinary tract infection Vaginal delivery Surgical History Surgical History H/O hemorrhoidectomy H/O inguinal hernia repair H/O sinus surgery H/O tubal ligation History of facial surgery Nasal reconstruction History of hysterectomy History of orthopedic surgery Right knee, trigger release finger left hand History of tonsillectomy History of urinary tract surgery Family History Family History Grandparent Diabetes mellitus, Onset Age: 200 C
== END 2021-02-04 15:20 | disposition home or self-care (01) ==
PROVIDERS: Emergency Provider Nurse Practitioner Family; PCP Family Medicine
DX: N30.10 Interstitial cystitis (chronic) without hematuria (principal); Z87.891 Personal history of nicotine dependence; K21.9 Gastro-esophageal reflux disease without esophagitis; I34.1 Nonrheumatic mitral (valve) prolapse
CPT/HCPCS: 81003; 99212; G0463

== ENCOUNTER 2021-03-18 13:39 | Emergency (ER) | payer OTHER, SELFPAY ==
[2021-03-18 13:45] VITALS: BP 121/67; PULSE 81; RESP 18; TEMP 36.1; O2SAT 99
--- NOTE | 2021-03-18 14:06 | ED.GENADULT ---
HPI - General Adult General Chief complaint: Urogenital-Female Stated complaint: poss uti Time Seen by Provider: 03/18/21 14:10 Source: patient Mode of arrival: ambulatory Limitations: no limitations History of Present Illness HPI narrative: 46-year-old female patient presents to the [facility] with concerns about possible urinary tract infection. Patient's been seen here many times and does have history of chronic interstitial cystitis for which she does follow-up with urology at [facility]. Patient states she was doing therapy over there and switched it recently to [facility] to be closer to home. Patient states she starts her [facility] therapy on March 23 and has a follow-up with her urologist on April 05. Denies vaginal discharge or low back pain denies fevers, body aches or chills. Related Data Home Medications Medication Instructions Recorded Confirmed No Home Medications 02/04/21 02/04/21 Allergies Allergy/AdvReac Type Severity Reaction Status Date / Time latex Allergy Mild RASH-CONDOMS Verified 03/18/21 14:02 AND GLOVES clindamycin Allergy Hives Verified 03/18/21 14:02 lubiprostone [From Amitiza] Allergy Itching Verified 03/18/21 14:02 propoxyphene Allergy Other Verified 03/18/21 14:02 [From Darvocet-N 100] acetaminophen AdvReac Other Verified 03/18/21 14:02 amoxicillin AdvReac Chest Pain Verified 03/18/21 14:02 codeine AdvReac Nausea and Verified 03/18/21 14:02 Vomiting hydrocodone AdvReac Other Verified 03/18/21 14:02 ketorolac [From Toradol] AdvReac Palpitation Verified 03/18/21 14:02 s levofloxacin [From Levaquin] AdvReac Chest Pain Verified 03/18/21 14:02 nitrofurantoin AdvReac Chest Pain Verified 03/18/21 14:02 [From Macrobid] paroxetine [From Paxil] AdvReac Other Verified 03/18/21 14:02 Penicillins AdvReac Chest Pain Verified 03/18/21 14:02 Sulfa (Sulfonamide AdvReac Chest Pain Verified 03/18/21 14:02 Antibiotics) vancomycin AdvReac Chest Pain Verified 03/18/21 14:02 HYDROCODONE BIT AdvReac Mild TOO STRONG Uncoded 03/18/21 14:02 PAROXETINE HCL AdvReac Mild PASS OUT Uncoded 03/18/21 14:02 PROPOXYPHENE NAPSYLATE AdvReac Mild I PASS Uncoded 03/18/21 14:02 OUT Review of Systems Review of Systems: Narrative: CONSTITUTIONAL: Denies fever, chills, or sweats. EYES: Denies visual changes, redness, or discharge. ENT: Denies rhinorrhea, congestion, sore throat, or otalgia. CARDIOVASCULAR: Denies chest pain, palpitations, or edema. RESPIRATORY: Denies cough or dyspnea. GASTROINTESTINAL: Denies abdominal pain, nausea, vomiting, or diarrhea. GENITOURINARY: Positive dysuria or hematuria. SKIN: Denies rash or itching. MUSCULOSKELETAL: Denies back pain, joint pain, or myalgia. NEUROLOGIC: Denies headache, numbness, or weakness. PSYCHIATRIC: Denies anxiety or depression. [facility] Past Medical History Medical History Anxiety Bronchitis Constipation Depression Genitourinary disorder Interstitial cystitis, urethral dilation GERD (gastroesophageal reflux disease) Interstitial cystitis Irritable bowel syndrome Mitral valve prolapse Right hand fracture Urinary tract infection Vaginal delivery Surgical History Surgical History H/O hemorrhoidectomy H/O inguinal hernia repair H/O sinus surgery H/O tubal ligation History of facial surgery Nasal reconstruction History of hysterectomy History of orthopedic surgery Right knee, trigger release finger left hand History of tonsillectomy History of urinary tract surgery Family History Family History Grandparent Diabetes mellitus, Onset Age: 200 Cerebrovascular accident, Onset Age: 200 Father Family history of elevated blood lipids Carcinoma of colon Family history of coronary artery disease, Onset Age: 201 Patient's father is
== END 2021-03-18 14:11 | disposition home or self-care (01) ==
PROVIDERS: Emergency Provider Nurse Practitioner Family; PCP Family Medicine
DX: N30.20 Other chronic cystitis without hematuria (principal); Z87.891 Personal history of nicotine dependence; K21.9 Gastro-esophageal reflux disease without esophagitis; I34.1 Nonrheumatic mitral (valve) prolapse
CPT/HCPCS: 81003; 87086; 99213; G0463

== ENCOUNTER 2021-03-28 19:07 | Emergency (ER) | payer OTHER, SELFPAY ==
--- NOTE | 2021-03-28 19:09 | ED.FEMALEGU ---
HPI - Female Genitourinary General Chief complaint: Urogenital-Female Stated complaint: poss uti lower back pain Time Seen by Provider: 03/28/21 19:09 Source: patient and RN notes reviewed History of Present Illness HPI Narrative: Patient is a 46-year-old female who presents the urgent care with complaints of urinary frequency and flank pain. Patient states that it started approximately 4 days ago. Patient was last seen in the facility 10 days ago for her chronic cystitis without any urinary tract infection. Patient denies of any nausea, vomiting, fever, suprapubic pressure. Patient has not taken anything [id number] for her pain. No other acute complaints. No acute distress noted. Patient aware of the plan of care. Some parts of this dictation were generated by voice recognition software and may contain typographical and/or grammatical inaccuracies. Related Data Home Medications Medication Instructions Recorded Confirmed No Home Medications 02/04/21 02/04/21 Allergies Allergy/AdvReac Type Severity Reaction Status Date / Time latex Allergy Mild RASH-CONDOMS Verified 03/28/21 19:19 AND GLOVES clindamycin Allergy Hives Verified 03/28/21 19:19 lubiprostone [From Amitiza] Allergy Itching Verified 03/28/21 19:19 propoxyphene Allergy Other Verified 03/28/21 19:19 [From Darvocet-N 100] acetaminophen AdvReac Other Verified 03/28/21 19:19 amoxicillin AdvReac Chest Pain Verified 03/28/21 19:19 codeine AdvReac Nausea and Verified 03/28/21 19:19 Vomiting hydrocodone AdvReac Other Verified 03/28/21 19:19 ketorolac [From Toradol] AdvReac Palpitation Verified 03/28/21 19:19 s levofloxacin [From Levaquin] AdvReac Chest Pain Verified 03/28/21 19:19 nitrofurantoin AdvReac Chest Pain Verified 03/28/21 19:19 [From Macrobid] paroxetine [From Paxil] AdvReac Other Verified 03/28/21 19:19 Penicillins AdvReac Chest Pain Verified 03/28/21 19:19 Sulfa (Sulfonamide AdvReac Chest Pain Verified 03/28/21 19:19 Antibiotics) vancomycin AdvReac Chest Pain Verified 03/28/21 19:19 HYDROCODONE BIT AdvReac Mild TOO STRONG Uncoded 03/18/21 14:02 PAROXETINE HCL AdvReac Mild PASS OUT Uncoded 03/18/21 14:02 PROPOXYPHENE NAPSYLATE AdvReac Mild I PASS Uncoded 03/18/21 14:02 OUT Review of Systems Review of Systems: Narrative: CONSTITUTIONAL: Denies fever, chills, or sweats. EYES: Denies visual changes, redness, or discharge. ENT: Denies rhinorrhea, congestion, sore throat, or otalgia. CARDIOVASCULAR: Denies chest pain, palpitations, or edema. RESPIRATORY: Denies cough or dyspnea. GASTROINTESTINAL: Denies abdominal pain, nausea, vomiting, or diarrhea. GENITOURINARY: Reports of urinary frequency and flank pain SKIN: Denies rash or itching. MUSCULOSKELETAL: Denies back pain, joint pain, or myalgia. NEUROLOGIC: Denies headache, numbness, or weakness. All other systems reviewed are negative, except as documented in HPI. [facility] Past Medical History Medical History Anxiety Bronchitis Constipation Depression Genitourinary disorder Interstitial cystitis, urethral dilation GERD (gastroesophageal reflux disease) Interstitial cystitis Irritable bowel syndrome Mitral valve prolapse Right hand fracture Urinary tract infection Vaginal delivery Surgical History Surgical History H/O hemorrhoidectomy H/O inguinal hernia repair H/O sinus surgery H/O tubal ligation History of facial surgery Nasal reconstruction History of hysterectomy History of orthopedic surgery Right knee, trigger release finger left hand History of tonsillectomy History of urinary tract surgery Family History Family History Grandparent Diabetes mellitus, Onset Age: 200 Cerebrovascular accident, Onset Age: 200 Father Family history of elevated bloo
[2021-03-28 19:10] VITALS: BP 123/81; PULSE 90; RESP 18; TEMP 36.4; O2SAT 98
--- NOTE | 2021-03-28 19:28 | PC.NURSE ---
NO UC ORDERED PER PROVIDER
== END 2021-03-28 19:31 | disposition home or self-care (01) ==
PROVIDERS: Emergency Provider Nurse Practitioner Family; PCP Family Medicine
DX: N30.90 Cystitis, unspecified without hematuria (principal); Z87.891 Personal history of nicotine dependence; K21.9 Gastro-esophageal reflux disease without esophagitis; I34.1 Nonrheumatic mitral (valve) prolapse
CPT/HCPCS: 81003; 99212; G0463

== ENCOUNTER 2021-04-16 13:36 | Emergency (ER) | payer OTHER, SELFPAY ==
[2021-04-16 13:43] VITALS: BP 126/87; PULSE 88; RESP 18; TEMP 36.8; O2SAT 100
== END 2021-04-16 14:03 | disposition left against medical advice (07) ==
LOC: EXPBETH 13:37
PROVIDERS: Emergency Provider Nurse Practitioner; PCP Family Medicine
DX: Z53.21 Procedure and treatment not carried out due to patient leaving prior to being seen by health care provider (principal)
CPT/HCPCS: 99199

== ENCOUNTER 2021-04-26 10:29 | Emergency (ER) | payer OTHER, SELFPAY ==
[2021-04-26 10:31] VITALS: BP 122/89; PULSE 69; RESP 16; TEMP 36.7; O2SAT 100
--- NOTE | 2021-04-26 10:33 | ED.FEMALEGU ---
HPI - Female Genitourinary General Chief complaint: Urogenital-Female Stated complaint: uti symptoms Time Seen by Provider: 04/26/21 10:40 Source: patient, RN notes reviewed and old records reviewed Mode of arrival: ambulatory Limitations: no limitations History of Present Illness HPI Narrative: 46-year-old female who presents to [facility] with complaints of lower back pain and suprapubic pressure for the past 2 weeks.Patient states that she has not noted any blood in her urine or when she wipes, denies any vaginal drainage, itching or odor, states no recent episodes of constipations stools are soft. Patient states that she saw bladder specialist at [place] in January and is to follow up in July. Patient states that she has been attending physical therapy for pelvic and rectal exercise therapy. Patient states that she has frequency of urination and intermittent burning has noted some rare episodes of urinary leakage. MD elicited complaint: dysuria Pertinent past history: recurrent UTIs and interstitial cystits Onset (ago): week(s) (2) Location of symptoms: suprapubic and other (lower back pressure) Severity: similar to previous episodes Severity scale (1-10): 3 Quality of pain: burning and other (pressure) Consistency: intermittent Vaginal discharge: none Vaginal bleeding: none Urinary symptoms: Dysuria and Frequency Exacerbating factors: urination Relieving factors: none Treatment prior to arrival: none Sexual activity: No Patient : No Related Data Home Medications Medication Instructions Recorded Confirmed No Home Medications 02/04/21 03/28/21 Allergies Allergy/AdvReac Type Severity Reaction Status Date / Time latex Allergy Mild RASH-CONDOMS Verified 04/26/21 10:44 AND GLOVES clindamycin Allergy Hives Verified 04/26/21 10:44 lubiprostone [From Amitiza] Allergy Itching Verified 04/26/21 10:44 propoxyphene Allergy Other Verified 04/26/21 10:44 [From Darvocet-N 100] acetaminophen AdvReac Other Verified 04/26/21 10:44 amoxicillin AdvReac Chest Pain Verified 04/26/21 10:44 codeine AdvReac Nausea and Verified 04/26/21 10:44 Vomiting hydrocodone AdvReac Other Verified 04/26/21 10:44 ketorolac [From Toradol] AdvReac Palpitation Verified 04/26/21 10:44 s levofloxacin [From Levaquin] AdvReac Chest Pain Verified 04/26/21 10:44 nitrofurantoin AdvReac Chest Pain Verified 04/26/21 10:44 [From Macrobid] paroxetine [From Paxil] AdvReac Other Verified 04/26/21 10:44 Penicillins AdvReac Chest Pain Verified 04/26/21 10:44 Sulfa (Sulfonamide AdvReac Chest Pain Verified 04/26/21 10:44 Antibiotics) vancomycin AdvReac Chest Pain Verified 04/26/21 10:44 HYDROCODONE BIT AdvReac Mild TOO STRONG Uncoded 04/26/21 10:44 PAROXETINE HCL AdvReac Mild PASS OUT Uncoded 04/26/21 10:44 PROPOXYPHENE NAPSYLATE AdvReac Mild I PASS Uncoded 04/26/21 10:44 OUT Review of Systems Review of Systems: Narrative: CONSTITUTIONAL: Denies fever, chills, or sweats. EYES: Denies visual changes, redness, or discharge. ENT: Denies rhinorrhea, congestion, sore throat, or otalgia. CARDIOVASCULAR: Denies chest pain, palpitations, or edema. RESPIRATORY: Denies cough or dyspnea. GASTROINTESTINAL: reports suprapubic pressure, no nausea, vomiting, or diarrhea. GENITOURINARY: Positive dysuria no visible hematuria.frequency SKIN: Denies rash or itching. MUSCULOSKELETAL: reports low back pressure, joint pain, or myalgia. NEUROLOGIC: Denies headache, numbness, or weakness. PSYCHIATRIC: Positive history of anxiety or depression. All systems reviewed & are unremarkable except as noted in HPI and below PMFSH Past Medical History Medical History Anxiety Bronchitis Constipation Depression Genitourinary disorder Interstitial cystitis, urethral dilation GERD (gastroesophageal reflux disease) Interstitial cystitis Irritable bowel syndrome Mitral valve prolapse Right ballard
== END 2021-04-26 11:10 | disposition home or self-care (01) ==
PROVIDERS: Emergency Provider Registered Nurse; PCP Family Medicine
DX: N30.11 Interstitial cystitis (chronic) with hematuria (principal); Z87.891 Personal history of nicotine dependence; K21.9 Gastro-esophageal reflux disease without esophagitis; I34.1 Nonrheumatic mitral (valve) prolapse
CPT/HCPCS: 81003; 87086; 87088; 99213; G0463

== ENCOUNTER 2021-04-30 14:57 | Emergency (ER) | payer OTHER, SELFPAY ==
[2021-04-30 15:07] VITALS: BP 111/78; PULSE 64; RESP 16; TEMP 36.6; O2SAT 100
--- NOTE | 2021-04-30 16:05 | ED.GENADULT ---
HPI - General Adult General Chief complaint: Urogenital-Female Stated complaint: Possible UTI Time Seen by Provider: 04/30/21 16:05 Source: patient and RN notes reviewed Mode of arrival: ambulatory Limitations: no limitations History of Present Illness HPI narrative: 46-year-old female presents with urinary complaints for the past 14 days. ?Yaquelin reports increase burning with urination this morning. Dysuria consists of burning and frequency.? No treatment.? History of urinary problems. ?Denies fever or chills. ?No significant pelvic pain. ?No vaginal discharge.? No concerns for STDs. ?Exacerbating factors urinating.? Denies hematuria or vaginal bleeding. ?No flank pain. Denies nausea, vomiting, and abdominal pain.? Tolerating liquids well.? LMP hysterectomy. ?Remains active. The patient reports she was diagnosed with COVID-19 November 10, 2021. ?The patient reports she is not waiting for the results of a COVID-19 lab test. ?The patient reports she does not have chills, weakness, or fatigue. The patient reports she does not have a new or worsening cough or shortness of breath. ?Denies chest pain. ?The patient reports she does not have any rhinorrhea, congestion, loss of taste or smell, sore throat, and diarrhea. ?Tolerating po intake well. Denies recent traveling. ?Denies concerns for COVID-19 or exposures. ?At this time, the patient is not suspected of having COVID-19. Some parts of this dictation were generated by voice recognition software and may contain typographical and/or grammatical inaccuracies. Related Data Home Medications Medication Instructions Recorded Confirmed No Home Medications 02/04/21 04/30/21 Allergies Allergy/AdvReac Type Severity Reaction Status Date / Time latex Allergy Mild RASH-CONDOMS Verified 04/30/21 15:37 AND GLOVES clindamycin Allergy Hives Verified 04/30/21 15:37 lubiprostone [From Amitiza] Allergy Itching Verified 04/30/21 15:37 propoxyphene Allergy Other Verified 04/30/21 15:37 [From Darvocet-N 100] acetaminophen AdvReac Other Verified 04/30/21 15:37 amoxicillin AdvReac Chest Pain Verified 04/30/21 15:37 codeine AdvReac Nausea and Verified 04/30/21 15:37 Vomiting hydrocodone AdvReac Other Verified 04/30/21 15:37 ketorolac [From Toradol] AdvReac Palpitation Verified 04/30/21 15:37 s levofloxacin [From Levaquin] AdvReac Chest Pain Verified 04/30/21 15:37 nitrofurantoin AdvReac Chest Pain Verified 04/30/21 15:37 [From Macrobid] paroxetine [From Paxil] AdvReac Other Verified 04/30/21 15:37 Penicillins AdvReac Chest Pain Verified 04/30/21 15:37 Sulfa (Sulfonamide AdvReac Chest Pain Verified 04/30/21 15:37 Antibiotics) vancomycin AdvReac Chest Pain Verified 04/30/21 15:37 HYDROCODONE BIT AdvReac Mild TOO STRONG Uncoded 04/26/21 10:44 PAROXETINE HCL AdvReac Mild PASS OUT Uncoded 04/26/21 10:44 PROPOXYPHENE NAPSYLATE AdvReac Mild I PASS Uncoded 04/26/21 10:44 OUT Review of Systems Review of Systems: Narrative: CONSTITUTIONAL: Denies fever, chills, sweats. EYES: Denies visual changes, redness, discharge. ENT: Denies rhinorrhea, congestion, sore throat, otalgia. CARDIOVASCULAR: Denies chest pain, palpitations, edema. RESPIRATORY: Denies dyspnea, wheezing, cough. GASTROINTESTINAL: Denies abdominal pain, nausea, vomiting, diarrhea. GENITOURINARY: Complains of dysuria (burning, frequency). Denies urgency, hematuria, abnormal discharge. SKIN: Denies rash or itching. MUSCULOSKELETAL: Denies acute back pain, joint pain, or myalgia. NEUROLOGIC: Denies numbness or focal weakness. PSYCHIATRIC: Denies anxiety or depression. All systems reviewed & are unremarkable except as noted in HPI and below. [facility] Past Medical History Medical History Anxiety Bronchitis Constipation Depression Genitourinary disorder Interstitial cystitis, urethral dilation GERD (gastroesophageal reflux disease) [facility]
== END 2021-04-30 16:15 | disposition home or self-care (01) ==
PROVIDERS: Emergency Provider Nurse Practitioner Family; PCP Family Medicine
DX: N34.2 Other urethritis (principal); Z87.891 Personal history of nicotine dependence; K21.9 Gastro-esophageal reflux disease without esophagitis; I34.1 Nonrheumatic mitral (valve) prolapse; F41.9 Anxiety disorder, unspecified; F32.9 Major depressive disorder, single episode, unspecified
CPT/HCPCS: 81003; 87086; 87088; 99213; G0463

== ENCOUNTER 2021-06-11 12:18 | Emergency (ER) | payer OTHER, SELFPAY ==
[2021-06-11 12:25] VITALS: BP 105/74; PULSE 81; RESP 18; TEMP 36.8; O2SAT 100
[2021-06-11 12:42] VITALS: BP 105/74; PULSE 81; RESP 18; TEMP 36.8; O2SAT 100
--- NOTE | 2021-06-11 12:47 | ED.FEMALEGU ---
HPI - Female Genitourinary General Chief complaint: Urogenital-Female Stated complaint: Possible UTI Time Seen by Provider: 06/11/21 12:35 Source: patient, RN notes reviewed and old records reviewed Mode of arrival: ambulatory Limitations: no limitations History of Present Illness HPI Narrative: 46 year old female who presents to [facility] care with complaints of having left abdominal discomfort for approximately one week duration with some urinary frequency thinks she may have a UTI. Patient also states that it could also be her IBS that she has been constipated lately. Patient has not taken any stool softeners or any other OTC medications for her complaints of constipation. Patient does have history of interstitial cystitis and follows with urologist at [place]. Patient noted to have elevated specific gravity, instructed patient that she must drink more fluids, stated she thought she had been drinking enough water. Patient denies any vaginal discharge or itching denies any concern for STD exposure.. MD elicited complaint: dysuria and other (interstitial cystitis, IBS) Pertinent past history: interstitial cystits and other (IBS with constipation) Onset (ago): week(s) (1) Location of symptoms: RLQ Severity: mild Female Urogenital Radiation: LLQ Severity scale (1-10): 3 Quality of pain: aching Consistency: intermittent Vaginal discharge: none Vaginal bleeding: none Urinary symptoms: Frequency Exacerbating factors: none Relieving factors: none Associated symptoms: abdominal pain and constipation Treatment prior to arrival: none Patient : No Related Data Home Medications Medication Instructions Recorded Confirmed No Home Medications 02/04/21 04/30/21 Allergies Allergy/AdvReac Type Severity Reaction Status Date / Time latex Allergy Mild RASH-CONDOMS Verified 06/11/21 12:28 AND GLOVES clindamycin Allergy Hives Verified 06/11/21 12:28 lubiprostone [From Amitiza] Allergy Itching Verified 06/11/21 12:28 propoxyphene Allergy Other Verified 06/11/21 12:28 [From Darvocet-N 100] acetaminophen AdvReac Other Verified 06/11/21 12:28 amoxicillin AdvReac Chest Pain Verified 06/11/21 12:28 codeine AdvReac Nausea and Verified 06/11/21 12:28 Vomiting hydrocodone AdvReac Other Verified 06/11/21 12:28 ketorolac [From Toradol] AdvReac Palpitation Verified 06/11/21 12:28 s levofloxacin [From Levaquin] AdvReac Chest Pain Verified 06/11/21 12:28 nitrofurantoin AdvReac Chest Pain Verified 06/11/21 12:28 [From Macrobid] paroxetine [From Paxil] AdvReac Other Verified 06/11/21 12:28 Penicillins AdvReac Chest Pain Verified 06/11/21 12:28 Sulfa (Sulfonamide AdvReac Chest Pain Verified 06/11/21 12:28 Antibiotics) vancomycin AdvReac Chest Pain Verified 06/11/21 12:28 HYDROCODONE BIT AdvReac Mild TOO STRONG Uncoded 06/11/21 12:28 PAROXETINE HCL AdvReac Mild PASS OUT Uncoded 06/11/21 12:28 PROPOXYPHENE NAPSYLATE AdvReac Mild I PASS Uncoded 06/11/21 12:28 OUT Review of Systems Review of Systems: Narrative: CONSTITUTIONAL: Denies fever, chills, or sweats. EYES: Denies visual changes, redness, or discharge. ENT: Denies rhinorrhea, congestion, sore throat, or otalgia. CARDIOVASCULAR: Denies chest pain, palpitations, or edema. RESPIRATORY: Denies cough or dyspnea. GASTROINTESTINAL: Reports left sided abdominal pain for one week duration, denies any nausea, vomiting, or diarrhea.Reports some constipation GENITOURINARY: Denies dysuria or visible hematuria states urinary frequency SKIN: Denies rash or itching. MUSCULOSKELETAL: Denies back pain, joint pain, or myalgia. NEUROLOGIC: Denies headache, numbness, or weakness. PSYCHIATRIC: Positive for anxiety or depression. All systems reviewed & are unremarkable except as noted in HPI and below PMFSH Past Medical History Medical History Anxiety Bronchitis Constipation Depression Genitourinary disorder [facility]
== END 2021-06-11 12:58 | disposition home or self-care (01) ==
PROVIDERS: Emergency Provider Registered Nurse; PCP Family Medicine
DX: N30.90 Cystitis, unspecified without hematuria (principal); K59.00 Constipation, unspecified; Z87.891 Personal history of nicotine dependence; J21.9 Acute bronchiolitis, unspecified; I34.1 Nonrheumatic mitral (valve) prolapse
CPT/HCPCS: 81003; 99212; G0463

== ENCOUNTER 2021-07-02 14:32 | Outpatient (CLI) | payer OTHER, SELFPAY ==
[2021-07-02 19:51] LABS: Basophils Percent Auto 0.7 % (0.2-1.2); Eosinophils Absolute Auto 0.1 K/mm3 (0-0.3); Eosinophils Percent Auto 2.5 % (0-4.4); Hematocrit 39.2 % (37.0-47.0); Hemoglobin 12.5 g/dL (12.0-15.0); Immature Granulocyte Absolute 0.01 K/mm3 (0.00-0.031); Immature Granulocyte Percent A 0.2 % (0-0.5); Lymphocytes Absolute Auto 1.64 K/mm3 (0.9-3.2); Lymphocytes Percent Auto 28.8 % (18.3-44.2); Mean Corpuscular HGB Conc 31.9 g/dl (32-36); Mean Corpuscular Hemoglobin 28.7 pg (26-34); Mean Corpuscular Volume 90.1 fl (80-100); Mean Platelet Volume 10.8 fl (7.4-10.4); Monocytes Absolute Auto 0.3 K/mm3 (0.1-0.6); Neutrophils Absolute Auto 3.5 K/mm3 (1.3-6.7); Neutrophils Percent Auto 61.8 % (45.5-73.1); Platelet Count Result 154 k/mm3 (150-375); Red Blood Count 4.35 M/mm3 (4.2-5.4); Red Cell Distribution Width 12.6 % (11.5-14.5); White Blood Count 5.7 K/mm3 (4.5-10.0)
[2021-07-02 20:28] LABS: Alanine Aminotransferase 34 U/L (4-35); Albumin Level 3.9 g/dL (3.5-5.1); Alkaline Phosphatase 64 U/L (38-126); Anion Gap 5 mmol/L (8-16); Aspartate Amino Transferase 31 U/L (14-36); Bilirubin,Total 0.4 mg/dL (0.2-1.3); Blood Urea Nitrogen 15 mg/dL (7-17); Calcium 8.9 mg/dL (8.4-10.2); Carbon Dioxide 27 mmol/L (22-30); Chloride 105 mmol/L (98-107); Cholesterol 168 mg/dL (0-200); Estimated Glomerular Filt Rate > 60; Glucose 102 mg/dL (65-110); HDL Direct 51 mg/dL; Potassium 3.9 mmol/L (3.4-5.0); Sodium 137 mmol/L (137-145); Triglycerides 114 mg/dL (<150)
[2021-07-02 20:39] LABS: LDL Cholesterol Direct 91 mg/dL
[2021-07-03 03:49] LABS: Hemoglobin A1C 5.4 % (<5.7)
== END 2021-07-02 14:33 | disposition home or self-care (01) ==
LOC: ANHBWCLAB 14:35
PROVIDERS: PCP Family Medicine; Visit Provider Family Medicine
DX: K59.00 Constipation, unspecified (principal); F41.9 Anxiety disorder, unspecified; N30.90 Cystitis, unspecified without hematuria; K58.9 Irritable bowel syndrome, unspecified; K21.9 Gastro-esophageal reflux disease without esophagitis; I34.1 Nonrheumatic mitral (valve) prolapse; F32.9 Major depressive disorder, single episode, unspecified; N30.10 Interstitial cystitis (chronic) without hematuria; E66.9 Obesity, unspecified
CPT/HCPCS: 36415; 80053; 80061; 83036; 84443; 85025

== ENCOUNTER 2021-07-12 12:21 | Emergency (ER) | payer OTHER, SELFPAY ==
[2021-07-12 12:28] VITALS: BP 101/65; PULSE 75; RESP 16; TEMP 36.5; O2SAT 99
--- NOTE | 2021-07-12 12:36 | ED.GENADULT ---
HPI - General Adult General Chief complaint: Urogenital-Female Stated complaint: POS UTI Time Seen by Provider: 07/12/21 12:30 Source: patient and RN notes reviewed Mode of arrival: ambulatory Limitations: no limitations History of Present Illness HPI narrative: 46-year-old female presents with urinary complaints for the past 4 days. Reports increasing frequency and urgency over the past 24 hours. Dysuria consists of bilateral flank pain, frequency, and urgency. Ibuprofen was taken last taken today at approximately 10:30 without relief. ?Denies fever. ?No significant pelvic pain. ?No vaginal discharge.? No concerns for STDs. ?Exacerbating factors urinating.? Denies hematuria or vaginal bleeding. Denies nausea, vomiting, and abdominal pain.? Tolerating liquids well.? LMP hysterectomy. Remains active. The patient reports she was diagnosed with COVID-19 November 10, 2021. The patient reports she received 2 Pfizer COVID-19 vaccines. The patient reports she is not waiting for the results of a COVID-19 lab test. The patient reports she does not have chills, weakness, or fatigue. The patient reports she does not have a new or worsening cough or shortness of breath. Denies chest pain. The patient reports she does not have any rhinorrhea, congestion, loss of taste or smell, sore throat, and diarrhea. Denies recent traveling. Denies concerns for COVID-19 or exposures. At this time, the patient is not suspected of having COVID-19. Some parts of this dictation were generated by voice recognition software and may contain typographical and/or grammatical inaccuracies. Related Data Home Medications Medication Instructions Recorded Confirmed polyethylene glycol 3350 17 17 g PO DAILY 07/02/21 07/12/21 gram/dose oral powder Allergies Allergy/AdvReac Type Severity Reaction Status Date / Time latex Allergy Mild RASH-CONDOMS Verified 07/12/21 12:29 AND GLOVES clindamycin Allergy Hives Verified 07/12/21 12:29 lubiprostone [From Amitiza] Allergy Itching Verified 07/12/21 12:29 propoxyphene Allergy Other Verified 07/12/21 12:29 [From Darvocet-N 100] acetaminophen AdvReac Other Verified 07/12/21 12:29 amoxicillin AdvReac Chest Pain Verified 07/12/21 12:29 codeine AdvReac Nausea and Verified 07/12/21 12:29 Vomiting hydrocodone AdvReac Other Verified 07/12/21 12:29 ketorolac [From Toradol] AdvReac Palpitation Verified 07/12/21 12:29 s levofloxacin [From Levaquin] AdvReac Chest Pain Verified 07/12/21 12:29 nitrofurantoin AdvReac Chest Pain Verified 07/12/21 12:29 [From Macrobid] paroxetine [From Paxil] AdvReac Other Verified 07/12/21 12:29 Penicillins AdvReac Chest Pain Verified 07/12/21 12:29 Sulfa (Sulfonamide AdvReac Chest Pain Verified 07/12/21 12:29 Antibiotics) vancomycin AdvReac Chest Pain Verified 07/12/21 12:29 HYDROCODONE BIT AdvReac Mild TOO STRONG Uncoded 07/12/21 12:29 PAROXETINE HCL AdvReac Mild PASS OUT Uncoded 07/12/21 12:29 PROPOXYPHENE NAPSYLATE AdvReac Mild I PASS Uncoded 07/12/21 12:29 OUT Review of Systems Review of Systems: CONSTITUTIONAL: Denies fever, chills, sweats. EYES: Denies visual changes, redness, discharge. ENT: Denies rhinorrhea, congestion, sore throat, otalgia. CARDIOVASCULAR: Denies chest pain, palpitations, edema. RESPIRATORY: Denies dyspnea, wheezing, cough. GASTROINTESTINAL: Denies abdominal pain, nausea, vomiting, diarrhea. GENITOURINARY: Complains of dysuria (bilateral flank pain, frequency, and urgency.) Denies hematuria, abnormal discharge. SKIN: Denies rash or itching. MUSCULOSKELETAL: Denies acute back pain, joint pain, or myalgia. NEUROLOGIC: Denies numbness or focal weakness. PSYCHIATRIC: Denies anxiety or depression. All systems reviewed & are unremarkable except as noted in HPI and below. [facility] Past Medical History Medical History Anxiety Bronchitis Constipation Depression Gen
--- NOTE | 2021-07-18 11:10 | ED.FEMALEGU ---
HPI - Female Genitourinary General Chief complaint: Urogenital-Female Stated complaint: POS UTI Time Seen by Provider: 07/12/21 12:30 Source: patient and RN notes reviewed Mode of arrival: ambulatory Limitations: no limitations History of Present Illness HPI Narrative: 46-year-old female with history of interstitial cystitis, IBS, obesity, anxiety presents with concern for bilateral flank pain, dysuria. MD elicited complaint: other (LLQ abdominal pain) Related Data Home Medications Medication Instructions Recorded Confirmed polyethylene glycol 3350 17 17 g PO DAILY 07/02/21 07/12/21 gram/dose oral powder Allergies Allergy/AdvReac Type Severity Reaction Status Date / Time latex Allergy Mild RASH-CONDOMS Verified 07/18/21 11:05 AND GLOVES clindamycin Allergy Hives Verified 07/18/21 11:05 lubiprostone [From Amitiza] Allergy Itching Verified 07/18/21 11:05 propoxyphene Allergy Other Verified 07/18/21 11:05 [From Darvocet-N 100] acetaminophen AdvReac Other Verified 07/18/21 11:05 amoxicillin AdvReac Chest Pain Verified 07/18/21 11:05 codeine AdvReac Nausea and Verified 07/18/21 11:05 Vomiting hydrocodone AdvReac Other Verified 07/18/21 11:05 ketorolac [From Toradol] AdvReac Palpitation Verified 07/18/21 11:05 s levofloxacin [From Levaquin] AdvReac Chest Pain Verified 07/18/21 11:05 nitrofurantoin AdvReac Chest Pain Verified 07/18/21 11:05 [From Macrobid] paroxetine [From Paxil] AdvReac Other Verified 07/18/21 11:05 Penicillins AdvReac Chest Pain Verified 07/18/21 11:05 Sulfa (Sulfonamide AdvReac Chest Pain Verified 07/18/21 11:05 Antibiotics) vancomycin AdvReac Chest Pain Verified 07/18/21 11:05 HYDROCODONE BIT AdvReac Mild TOO STRONG Uncoded 07/12/21 12:29 PAROXETINE HCL AdvReac Mild PASS OUT Uncoded 07/12/21 12:29 PROPOXYPHENE NAPSYLATE AdvReac Mild I PASS Uncoded 07/12/21 12:29 OUT Review of Systems Review of Systems: CONSTITUTIONAL: Denies malaise, chills, sweats, or fever. EYES: Denies visual changes, redness, or discharge. ENT: Denies rhinorrhea, congestion, sinus pain, otalgia or sore throat. CARDIOVASCULAR: Denies chest pain, palpitations, or edema. RESPIRATORY: Denies cough or dyspnea. GASTROINTESTINAL: Denies abdominal pain, nausea, vomiting, diarrhea, bloody, or mucous stools. GENITOURINARY: Denies dysuria or hematuria. SKIN: Denies rash or itching. MUSCULOSKELETAL: Denies back pain, joint pain, or myalgia. NEUROLOGIC: Denies numbness, weakness, or headache. PSYCHIATRIC: Denies anxiety or depression. [facility] Past Medical History Medical History Anxiety Bronchitis Constipation Depression Genitourinary disorder Interstitial cystitis, urethral dilation GERD (gastroesophageal reflux disease) Interstitial cystitis Irritable bowel syndrome Mitral valve prolapse Right hand fracture Urinary tract infection Vaginal delivery Surgical History Surgical History H/O hemorrhoidectomy H/O inguinal hernia repair H/O sinus surgery H/O tubal ligation History of facial surgery Nasal reconstruction History of hysterectomy History of orthopedic surgery Right knee, trigger release finger left hand History of tonsillectomy History of urinary tract surgery Family History Family History Grandparent Diabetes mellitus, Onset Age: 200 Cerebrovascular accident, Onset Age: 200 Father Family history of elevated blood lipids Carcinoma of colon Family history of coronary artery disease, Onset Age: 201 Patient's father is Grandparent Family history of malignant neoplasm Diabetes mellitus Cerebrovascular accident Hypertension Family history of cardiovascular disease Father Family history of congestive heart failure Patient's father is Hypertension
== END 2021-07-12 13:18 | disposition home or self-care (01) ==
PROVIDERS: Emergency Provider Nurse Practitioner Family; PCP Family Medicine
DX: R30.0 Dysuria (principal); Z87.891 Personal history of nicotine dependence; K21.9 Gastro-esophageal reflux disease without esophagitis; I34.1 Nonrheumatic mitral (valve) prolapse
CPT/HCPCS: 81003; 87086; 87088; 99213; G0463

== ENCOUNTER 2021-07-18 11:00 | Emergency (ER) | payer OTHER, SELFPAY ==
[2021-07-18 11:05] VITALS: BP 128/89; PULSE 65; RESP 16; TEMP 36.5; O2SAT 100
--- NOTE | 2021-07-18 11:43 | ED.FEMALEGU ---
HPI - Female Genitourinary General Chief complaint: Urogenital-Female Stated complaint: Poss uti Time Seen by Provider: 07/18/21 11:30 Source: patient and RN notes reviewed Mode of arrival: ambulatory Limitations: no limitations History of Present Illness HPI Narrative: 46-year-old female with history of interstitial cystitis, IBS presents with concern for left lower quadrant abdominal pain. Reports history of partial hysterectomy, still has 2 ovaries. Reports symptoms for 3 days that is unchanging, not worsening, not improving. Denies pain with movement, denies tenderness. Denies exacerbating or relieving factors. Denies nausea, vomiting, diarrhea, constipation. Reports normal bowel movements. Denies dysuria, hematuria, frequency, urgency, flank pain, fever. Denies abnormal vaginal discharge or bleeding. MD elicited complaint: other (Abdominal pain) Related Data Home Medications Medication Instructions Recorded Confirmed polyethylene glycol 3350 17 17 g PO DAILY 07/02/21 07/18/21 gram/dose oral powder Allergies Allergy/AdvReac Type Severity Reaction Status Date / Time latex Allergy Mild RASH-CONDOMS Verified 07/18/21 11:05 AND GLOVES clindamycin Allergy Hives Verified 07/18/21 11:05 lubiprostone [From Amitiza] Allergy Itching Verified 07/18/21 11:05 propoxyphene Allergy Other Verified 07/18/21 11:05 [From Darvocet-N 100] acetaminophen AdvReac Other Verified 07/18/21 11:05 amoxicillin AdvReac Chest Pain Verified 07/18/21 11:05 codeine AdvReac Nausea and Verified 07/18/21 11:05 Vomiting hydrocodone AdvReac Other Verified 07/18/21 11:05 ketorolac [From Toradol] AdvReac Palpitation Verified 07/18/21 11:05 s levofloxacin [From Levaquin] AdvReac Chest Pain Verified 07/18/21 11:05 nitrofurantoin AdvReac Chest Pain Verified 07/18/21 11:05 [From Macrobid] paroxetine [From Paxil] AdvReac Other Verified 07/18/21 11:05 Penicillins AdvReac Chest Pain Verified 07/18/21 11:05 Sulfa (Sulfonamide AdvReac Chest Pain Verified 07/18/21 11:05 Antibiotics) vancomycin AdvReac Chest Pain Verified 07/18/21 11:05 HYDROCODONE BIT AdvReac Mild TOO STRONG Uncoded 07/12/21 12:29 PAROXETINE HCL AdvReac Mild PASS OUT Uncoded 07/12/21 12:29 PROPOXYPHENE NAPSYLATE AdvReac Mild I PASS Uncoded 07/12/21 12:29 OUT Review of Systems Review of Systems: CONSTITUTIONAL: Denies malaise, chills, sweats, or fever. CARDIOVASCULAR: Denies chest pain, palpitations, or edema. RESPIRATORY: Denies cough or dyspnea. GASTROINTESTINAL: Reports left lower quadrant abdominal pain. Denies constipation, nausea, vomiting, diarrhea, bloody, or mucous stools. GENITOURINARY: Denies dysuria, frequency, urgency, flank pain, or hematuria. SKIN: Denies bruising, redness, swelling MUSCULOSKELETAL: Denies back pain, joint pain, or myalgia. All systems reviewed & are unremarkable except as noted in HPI and below PMFSH Past Medical History Medical History Anxiety Bronchitis Constipation Depression Genitourinary disorder Interstitial cystitis, urethral dilation GERD (gastroesophageal reflux disease) Interstitial cystitis Irritable bowel syndrome Mitral valve prolapse Right hand fracture Urinary tract infection Vaginal delivery Surgical History Surgical History H/O hemorrhoidectomy H/O inguinal hernia repair H/O sinus surgery H/O tubal ligation History of facial surgery Nasal reconstruction History of hysterectomy History of orthopedic surgery Right knee, trigger release finger left hand History of tonsillectomy History of urinary tract surgery Family History Family History Grandparent Diabetes mellitus, Onset Age: 200 Cerebrovascular accident, Onset Age: 200 Father Family history of elevated blood lipids Carcinom
== END 2021-07-18 12:01 | disposition home or self-care (01) ==
PROVIDERS: Emergency Provider Nurse Practitioner; PCP Family Medicine
DX: R10.32 Left lower quadrant pain (principal); Z87.891 Personal history of nicotine dependence; K21.9 Gastro-esophageal reflux disease without esophagitis; I34.1 Nonrheumatic mitral (valve) prolapse; Z90.711 Acquired absence of uterus with remaining cervical stump
CPT/HCPCS: 81003; 99212; G0463

== ENCOUNTER 2021-07-29 17:18 | Emergency (ER) | payer OTHER, SELFPAY ==
--- NOTE | 2021-07-29 17:27 | ED.URI ---
HPI - URI/Sore Throat General Chief Complaint: Upper Respiratory Infection Stated Complaint: sinus problems Time Seen by Provider: 07/29/21 17:30 Source: patient and RN notes reviewed Mode of arrival: ambulatory Limitations: no limitations History of Present Illness HPI Narrative: 46 old female presents concern for 11-day history of sinus congestion, drainage. Reports symptoms are improving with [id number] medications however she has left ear pain. She denies cough, fever, body aches, chills, sweats. Denies Covid exposure. MD elicited complaint: nasal congestion Related Data Home Medications Medication Instructions Recorded Confirmed polyethylene glycol 3350 17 17 g PO DAILY 07/02/21 07/18/21 gram/dose oral powder Allergies Allergy/AdvReac Type Severity Reaction Status Date / Time latex Allergy Mild RASH-CONDOMS Verified 07/29/21 17:33 AND GLOVES clindamycin Allergy Hives Verified 07/29/21 17:33 lubiprostone [From Amitiza] Allergy Itching Verified 07/29/21 17:33 propoxyphene Allergy Other Verified 07/29/21 17:33 [From Darvocet-N 100] acetaminophen AdvReac Other Verified 07/29/21 17:33 amoxicillin AdvReac Chest Pain Verified 07/29/21 17:33 codeine AdvReac Nausea and Verified 07/29/21 17:33 Vomiting hydrocodone AdvReac Other Verified 07/29/21 17:33 ketorolac [From Toradol] AdvReac Palpitation Verified 07/29/21 17:33 s levofloxacin [From Levaquin] AdvReac Chest Pain Verified 07/29/21 17:33 nitrofurantoin AdvReac Chest Pain Verified 07/29/21 17:33 [From Macrobid] paroxetine [From Paxil] AdvReac Other Verified 07/29/21 17:33 Penicillins AdvReac Chest Pain Verified 07/29/21 17:33 Sulfa (Sulfonamide AdvReac Chest Pain Verified 07/29/21 17:33 Antibiotics) vancomycin AdvReac Chest Pain Verified 07/29/21 17:33 HYDROCODONE BIT AdvReac Mild TOO STRONG Uncoded 07/29/21 17:33 PAROXETINE HCL AdvReac Mild PASS OUT Uncoded 07/29/21 17:33 PROPOXYPHENE NAPSYLATE AdvReac Mild I PASS Uncoded 07/29/21 17:33 OUT Review of Systems Review of Systems: CONSTITUTIONAL: Denies malaise, chills, sweats, or fever. EYES: Denies visual changes, redness, or discharge. ENT: Reports rhinorrhea, congestion, left otalgia. Denies sinus pain and sore throat. CARDIOVASCULAR: Denies chest pain, palpitations, or edema. RESPIRATORY: Denies cough or dyspnea. GASTROINTESTINAL: Denies abdominal pain, nausea, vomiting, diarrhea SKIN: Denies rash or itching. MUSCULOSKELETAL: Denies myalgia. NEUROLOGIC: Denies headache. All systems reviewed & are unremarkable except as noted in HPI and below PMFSH Past Medical History Medical History Anxiety Bronchitis Constipation Depression Genitourinary disorder Interstitial cystitis, urethral dilation GERD (gastroesophageal reflux disease) Interstitial cystitis Irritable bowel syndrome Mitral valve prolapse Right hand fracture Urinary tract infection Vaginal delivery Surgical History Surgical History H/O hemorrhoidectomy H/O inguinal hernia repair H/O sinus surgery H/O tubal ligation History of facial surgery Nasal reconstruction History of hysterectomy History of orthopedic surgery Right knee, trigger release finger left hand History of tonsillectomy History of urinary tract surgery Family History Family History Grandparent Diabetes mellitus, Onset Age: 200 Cerebrovascular accident, Onset Age: 200 Father Family history of elevated blood lipids Carcinoma of colon Family history of coronary artery disease, Onset Age: 201 Patient's father is Grandparent Family history of malignant neoplasm Diabetes mellitus Cerebrovascular accident Hypertension Family history of cardiovascular disease Father Family history of congestive heart failure
[2021-07-29 17:28] VITALS: BP 123/79; PULSE 82; RESP 16; TEMP 36.8; O2SAT 98
[2021-07-29 17:34] VITALS: BP 123/79; PULSE 82; RESP 16; TEMP 36.8; O2SAT 98
== END 2021-07-29 17:47 | disposition home or self-care (01) ==
PROVIDERS: Emergency Provider Nurse Practitioner
DX: J06.9 Acute upper respiratory infection, unspecified (principal); H69.91 Unspecified Eustachian tube disorder, right ear; Z87.891 Personal history of nicotine dependence
CPT/HCPCS: 99213; G0463

== ENCOUNTER 2021-08-06 12:18 | Emergency (ER) | payer OTHER, SELFPAY ==
[2021-08-06 12:27] VITALS: BP 110/83; PULSE 76; RESP 16; TEMP 36.4; O2SAT 99
[2021-08-06 12:28] VITALS: BP 110/83; PULSE 76; RESP 16; TEMP 36.4; O2SAT 99
--- NOTE | 2021-08-06 13:02 | WPDEDEXPGENP ---
HPI - General Ped General Chief complaint: Urogenital-Female Stated complaint: POS UTI Source: patient and RN notes reviewed Limitations: no limitations History of Present Illness HPI narrative: The patient, who has frequent visits, presents with recurrent pains. Patient states she has bilateral ear and chronic suprapubic pains. She has a prior history of interstitial cystitis , but personal review of cystoscopy report was noncontributory several years ago. She complains of typical urinary discomfort with urinary urgency and frequency. She also wants to be checked for ears or bilateral ear fullness. No fever, blood, abdominal pain, vomiting/diarrhea; no sore throat, loss of taste/smell, fever, URI?sinusitis Related Data Home Medications Medication Instructions Recorded Confirmed polyethylene glycol 3350 17 17 g PO DAILY 07/02/21 08/06/21 gram/dose oral powder Allergies Allergy/AdvReac Type Severity Reaction Status Date / Time latex Allergy Mild RASH-CONDOMS Verified 08/06/21 12:28 AND GLOVES clindamycin Allergy Hives Verified 08/06/21 12:28 lubiprostone [From Amitiza] Allergy Itching Verified 08/06/21 12:28 propoxyphene Allergy Other Verified 08/06/21 12:28 [From Darvocet-N 100] acetaminophen AdvReac Other Verified 08/06/21 12:28 amoxicillin AdvReac Chest Pain Verified 08/06/21 12:28 codeine AdvReac Nausea and Verified 08/06/21 12:28 Vomiting hydrocodone AdvReac Other Verified 08/06/21 12:28 ketorolac [From Toradol] AdvReac Palpitation Verified 08/06/21 12:28 s levofloxacin [From Levaquin] AdvReac Chest Pain Verified 08/06/21 12:28 nitrofurantoin AdvReac Chest Pain Verified 08/06/21 12:28 [From Macrobid] paroxetine [From Paxil] AdvReac Other Verified 08/06/21 12:28 Penicillins AdvReac Chest Pain Verified 08/06/21 12:28 Sulfa (Sulfonamide AdvReac Chest Pain Verified 08/06/21 12:28 Antibiotics) vancomycin AdvReac Chest Pain Verified 08/06/21 12:28 HYDROCODONE BIT AdvReac Mild TOO STRONG Uncoded 08/06/21 12:28 PAROXETINE HCL AdvReac Mild PASS OUT Uncoded 08/06/21 12:28 PROPOXYPHENE NAPSYLATE AdvReac Mild I PASS Uncoded 08/06/21 12:28 OUT Pediatric Review of Systems Review of Systems: General/Constitutional: No weight loss,fever Eyes: N0: Redness,discharge Ears/Nose/Throat: No: Epistaxis,ear discharge Respiratory: Denies: Hemoptysis Gastrointestinal: No Vomiting, Bleeding-rectal Skin: No Lumps, eruption Neurologic: No Focal Weakness,Sz Hematologic: Denies: Petechiae/Purpura Psychiatric: No: Suicida ideationl All Other Systems: Reviewed and Negative [facility] Past Medical History Medical History Anxiety Bronchitis Constipation Depression Genitourinary disorder Interstitial cystitis, urethral dilation GERD (gastroesophageal reflux disease) Interstitial cystitis Irritable bowel syndrome Mitral valve prolapse Right hand fracture Urinary tract infection Vaginal delivery Surgical History Surgical History H/O hemorrhoidectomy H/O inguinal hernia repair H/O sinus surgery H/O tubal ligation History of facial surgery Nasal reconstruction History of hysterectomy History of orthopedic surgery Right knee, trigger release finger left hand History of tonsillectomy History of urinary tract surgery Family History Family History Grandparent Diabetes mellitus, Onset Age: 200 Cerebrovascular accident, Onset Age: 200 Father Family history of elevated blood lipids Carcinoma of colon Family history of coronary artery disease, Onset Age: 201 Patient's father is Grandparent Family history of malignant neoplasm Diabetes mellitus Cerebrovascular accident Hypertension Family history of cardiovascular disease Father Family history of congestive heart
== END 2021-08-06 13:06 | disposition home or self-care (01) ==
PROVIDERS: Emergency Provider Emergency Medicine
DX: H92.03 Otalgia, bilateral (principal); R35.0 Frequency of micturition; R39.15 Urgency of urination; F41.9 Anxiety disorder, unspecified; F32.9 Major depressive disorder, single episode, unspecified; Z87.891 Personal history of nicotine dependence; Z71.1 Person with feared health complaint in whom no diagnosis is made; Z79.891 Long term (current) use of opiate analgesic
CPT/HCPCS: 81003; 99212; G0463

== ENCOUNTER 2021-08-21 11:58 | Emergency (ER) | payer OTHER, SELFPAY ==
[2021-08-21 12:08] VITALS: BP 127/87; PULSE 62; RESP 20; TEMP 36.9; O2SAT 100
[2021-08-21 12:24] VITALS: BP 127/87; PULSE 62; RESP 20; TEMP 36.9; O2SAT 100
--- NOTE | 2021-08-23 10:04 | ED.FEMALEGU ---
HPI - Female Genitourinary General Chief complaint: Urogenital-Female Stated complaint: UTI Time Seen by Provider: 08/21/21 12:40 Source: patient, RN notes reviewed and old records reviewed Mode of arrival: ambulatory Limitations: no limitations History of Present Illness HPI Narrative: Patient presents today requesting urinalysis to, make sure she does not have an infection. Patient is a frequent visitor of [facility] and has a history of interstitial cystitis. She had her urethra dilated 1 week ago by her urologist and was on ciprofloxacin for several days following. She does not currently have any symptoms except some mild low back pressure that she states is likely attributed to some constipation related to her irritable bowel syndrome. Related Data Home Medications Medication Instructions Recorded Confirmed No Home Medications 08/21/21 08/21/21 Allergies Allergy/AdvReac Type Severity Reaction Status Date / Time latex Allergy Mild RASH-CONDOMS Verified 08/21/21 12:24 AND GLOVES clindamycin Allergy Hives Verified 08/21/21 12:24 lubiprostone [From Amitiza] Allergy Itching Verified 08/21/21 12:24 propoxyphene Allergy Other Verified 08/21/21 12:24 [From Darvocet-N 100] acetaminophen AdvReac Other Verified 08/21/21 12:24 amoxicillin AdvReac Chest Pain Verified 08/21/21 12:24 codeine AdvReac Nausea and Verified 08/21/21 12:24 Vomiting hydrocodone AdvReac Other Verified 08/21/21 12:24 ketorolac [From Toradol] AdvReac Palpitation Verified 08/21/21 12:24 s levofloxacin [From Levaquin] AdvReac Chest Pain Verified 08/21/21 12:24 nitrofurantoin AdvReac Chest Pain Verified 08/21/21 12:24 [From Macrobid] paroxetine [From Paxil] AdvReac Other Verified 08/21/21 12:24 Penicillins AdvReac Chest Pain Verified 08/21/21 12:24 Sulfa (Sulfonamide AdvReac Chest Pain Verified 08/21/21 12:24 Antibiotics) vancomycin AdvReac Chest Pain Verified 08/21/21 12:24 PROPOXYPHENE NAPSYLATE AdvReac Mild I PASS Uncoded 08/21/21 12:24 OUT Review of Systems Review of Systems: CONSTITUTIONAL: Denies body aches, fever, chills, or sweats. EYES: Denies visual changes, redness, or discharge. ENT: Denies rhinorrhea, congestion, sore throat, or otalgia. CARDIOVASCULAR: Denies chest pain, palpitations, or edema. RESPIRATORY: Denies cough or dyspnea. GASTROINTESTINAL: Denies abdominal pain, nausea, vomiting, or diarrhea. GENITOURINARY: Denies dysuria or hematuria. SKIN: Denies rash, itching, or wounds. MUSCULOSKELETAL: Denies joint pain, or myalgia.+ Low back pressure NEUROLOGIC: Denies headache, numbness, tingling, or weakness. PSYCH: Denies depression or anxiety. [facility] Past Medical History Medical History Anxiety Bronchitis Constipation Depression Genitourinary disorder Interstitial cystitis, urethral dilation GERD (gastroesophageal reflux disease) Interstitial cystitis Irritable bowel syndrome Mitral valve prolapse Right hand fracture Urinary tract infection Vaginal delivery Surgical History Surgical History H/O hemorrhoidectomy H/O inguinal hernia repair H/O sinus surgery H/O tubal ligation History of facial surgery Nasal reconstruction History of hysterectomy History of orthopedic surgery Right knee, trigger release finger left hand History of tonsillectomy History of urinary tract surgery Family History Family History Grandparent Diabetes mellitus, Onset Age: 200 Cerebrovascular accident, Onset Age: 200 Father Family history of elevated blood lipids Carcinoma of colon Family history of coronary artery disease, Onset Age: 201 Patient's father is Grandparent Family history of malignant neoplasm Diabetes mellitus Cerebrovascular accident Hypertension Famil
== END 2021-08-21 13:00 | disposition home or self-care (01) ==
PROVIDERS: Emergency Provider Nurse Practitioner
DX: Z71.1 Person with feared health complaint in whom no diagnosis is made (principal); K21.9 Gastro-esophageal reflux disease without esophagitis; I34.1 Nonrheumatic mitral (valve) prolapse
CPT/HCPCS: 81003; 99213; G0463

== ENCOUNTER 2021-10-14 09:22 | Emergency (ER) | payer MEDICAID, SELFPAY ==
[2021-10-14 09:31] VITALS: BP 125/79; PULSE 69; RESP 16; TEMP 36.6; O2SAT 100
--- NOTE | 2021-10-14 10:55 | ED.GENADULT ---
HPI - General Adult General Chief complaint: Urogenital-Female Stated complaint: UTI Time Seen by Provider: 10/14/21 10:50 Source: patient and RN notes reviewed Mode of arrival: ambulatory Limitations: no limitations History of Present Illness HPI narrative: Patient presents today complaining of a 4 to 5-day history of urinary frequency, urgency, dysuria. She has extensive history of interstitial cystitis with frequent visits to urgent care with same symptoms. In the past she has had frequent urine cultures and mostly they come back normal. Patient had her urethra dilated in the past 2 months and was on extensive course of ciprofloxacin at that time. She has not been on antibiotics since. She is also complaining of some right ear pressure for the last 3 days. States she feels like there is some fluid behind her eardrum. She has been using some Flonase and a nasal rinse without much relief. MD complaint: Urinary symptoms, right ear pressure Related Data Home Medications Medication Instructions Recorded Confirmed No Home Medications 08/21/21 10/14/21 Allergies Allergy/AdvReac Type Severity Reaction Status Date / Time latex Allergy Mild RASH-CONDOMS Verified 10/14/21 09:59 AND GLOVES clindamycin Allergy Hives Verified 10/14/21 09:59 lubiprostone [From Amitiza] Allergy Itching Verified 10/14/21 09:59 propoxyphene Allergy Other Verified 10/14/21 09:59 [From Darvocet-N 100] acetaminophen AdvReac Other Verified 10/14/21 09:59 amoxicillin AdvReac Chest Pain Verified 10/14/21 09:59 codeine AdvReac Nausea and Verified 10/14/21 09:59 Vomiting hydrocodone AdvReac Other Verified 10/14/21 09:59 ketorolac [From Toradol] AdvReac Palpitation Verified 10/14/21 09:59 s levofloxacin [From Levaquin] AdvReac Chest Pain Verified 10/14/21 09:59 nitrofurantoin AdvReac Chest Pain Verified 10/14/21 10:00 [From Macrobid] paroxetine [From Paxil] AdvReac Other Verified 10/14/21 10:00 Penicillins AdvReac Chest Pain Verified 10/14/21 10:00 Sulfa (Sulfonamide AdvReac Chest Pain Verified 10/14/21 10:00 Antibiotics) vancomycin AdvReac Chest Pain Verified 10/14/21 10:00 PROPOXYPHENE NAPSYLATE AdvReac Mild I PASS Uncoded 10/14/21 10:00 OUT Review of Systems Review of Systems: CONSTITUTIONAL: Denies body aches, fever, chills, or sweats. EYES: Denies visual changes, redness, or discharge. ENT: Denies rhinorrhea, congestion, sore throat. + Right ear pressure CARDIOVASCULAR: Denies chest pain, palpitations, or edema. RESPIRATORY: Denies cough or dyspnea. GASTROINTESTINAL: Denies abdominal pain, nausea, vomiting, or diarrhea. GENITOURINARY: + Dysuria, hematuria, frequency SKIN: Denies rash, itching, or wounds. MUSCULOSKELETAL: Denies back pain, joint pain, or myalgia. NEUROLOGIC: Denies headache, numbness, tingling, or weakness. PSYCH: Denies depression or anxiety. [facility] Past Medical History Medical History Anxiety Bronchitis Constipation Depression Genitourinary disorder Interstitial cystitis, urethral dilation GERD (gastroesophageal reflux disease) Interstitial cystitis Irritable bowel syndrome Mitral valve prolapse Right hand fracture Urinary tract infection Vaginal delivery Surgical History Surgical History H/O hemorrhoidectomy H/O inguinal hernia repair H/O sinus surgery H/O tubal ligation History of facial surgery Nasal reconstruction History of hysterectomy History of orthopedic surgery Right knee, trigger release finger left hand History of tonsillectomy History of urinary tract surgery Family History Family History Grandparent Diabetes mellitus, Onset Age: 200 Cerebrovascular accident, Onset Age: 200 Father Family history of elevated blood lipids Carcinoma of colon Fam
== END 2021-10-14 11:05 | disposition home or self-care (01) ==
PROVIDERS: Emergency Provider Nurse Practitioner
DX: N30.10 Interstitial cystitis (chronic) without hematuria (principal); H92.01 Otalgia, right ear; Z87.891 Personal history of nicotine dependence; K21.9 Gastro-esophageal reflux disease without esophagitis; I34.1 Nonrheumatic mitral (valve) prolapse
CPT/HCPCS: 81003; 99212; G0463

== ENCOUNTER 2021-11-01 10:40 | Emergency (ER) | payer SELFPAY ==
[2021-11-01 10:53] VITALS: BP 110/82; PULSE 74; RESP 18; TEMP 37.1; O2SAT 99
--- NOTE | 2021-11-01 11:04 | ED.FEMALEGU ---
HPI - Female Genitourinary General Chief complaint: Urogenital-Female Stated complaint: poss uti Time Seen by Provider: 11/01/21 11:04 Source: patient, RN notes reviewed and old records reviewed Mode of arrival: ambulatory Limitations: no limitations History of Present Illness HPI Narrative: 46-year-old female presents to the [facility] with complaints of I think I have a UTI. Patient reports frequency, urgency and side pain for 4 days. Denies abdominal pain, chest pain, nausea, vomiting, shortness of breath or fevers MD elicited complaint: UTI Related Data Home Medications Medication Instructions Recorded Confirmed No Home Medications 08/21/21 11/01/21 Allergies Allergy/AdvReac Type Severity Reaction Status Date / Time latex Allergy Mild RASH-CONDOMS Verified 11/01/21 11:23 AND GLOVES clindamycin Allergy Hives Verified 11/01/21 11:23 lubiprostone [From Amitiza] Allergy Itching Verified 11/01/21 11:23 propoxyphene Allergy Other Verified 11/01/21 11:23 [From Darvocet-N 100] acetaminophen AdvReac Other Verified 11/01/21 11:23 amoxicillin AdvReac Chest Pain Verified 11/01/21 11:23 codeine AdvReac Nausea and Verified 11/01/21 11:23 Vomiting hydrocodone AdvReac Other Verified 11/01/21 11:23 ketorolac [From Toradol] AdvReac Palpitation Verified 11/01/21 11:23 s levofloxacin [From Levaquin] AdvReac Chest Pain Verified 11/01/21 11:23 nitrofurantoin AdvReac Chest Pain Verified 11/01/21 11:23 [From Macrobid] paroxetine [From Paxil] AdvReac Other Verified 11/01/21 11:23 Penicillins AdvReac Chest Pain Verified 11/01/21 11:23 Sulfa (Sulfonamide AdvReac Chest Pain Verified 11/01/21 11:23 Antibiotics) vancomycin AdvReac Chest Pain Verified 11/01/21 11:23 PROPOXYPHENE NAPSYLATE AdvReac Mild I PASS Uncoded 10/14/21 10:00 OUT Review of Systems Review of Systems: All systems reviewed & are unremarkable except as noted in HPI and below Constitutional: Constitutional: Reports no additional constitutional complaints, Denies chills and Denies fatigue Eyes: Eyes: Reports no additional eye complaints ENT: Reports system reviewed and no additional complaints, except as documented Cardiovascular: Cardiovascular: Reports no additional cardiovascular complaints Respiratory: Respiratory: Reports no additional respiratory complaints Gastrointestinal: Gastrointestinal: Reports no additional gastrointestinal complaints Genitourinary: Genitourinary: Reports as per HPI, Denies abnormal vaginal bleeding, Reports nocturia, Reports dysuria, Denies pelvic pain, Reports flank pain and Denies vaginal discharge Musculoskeletal: Musculoskeletal: Reports no additional musculoskeletal complaints Integumentary/Breasts: Skin/Breast: Reports system reviewed and no additional complaints, except as docu Neurologic: Reports system reviewed and no additional complaints, except as documented Psychiatric: Psychiatric: Reports no additional psychiatric complaints Allergic/Immunologic: Allergic/Immunologic: Reports no additional allergic/immunologic complaints PMF Past Medical History Medical History Anxiety Bronchitis Constipation Depression Genitourinary disorder Interstitial cystitis, urethral dilation GERD (gastroesophageal reflux disease) Interstitial cystitis Irritable bowel syndrome Mitral valve prolapse Right hand fracture Urinary tract infection Vaginal delivery Surgical History Surgical History H/O hemorrhoidectomy H/O inguinal hernia repair H/O sinus surgery H/O tubal ligation History of facial surgery Nasal reconstruction History of hysterectomy History of orthopedic surgery Right knee, trigger release finger left hand History of tonsillectomy History of urinary tract surgery Family History Family History (Reviewed 10/14/21 @ 10:58 by Deirdre Guerrero,
== END 2021-11-01 11:30 | disposition home or self-care (01) ==
PROVIDERS: Emergency Provider Nurse Practitioner
DX: R35.0 Frequency of micturition (principal); Z87.891 Personal history of nicotine dependence; K21.9 Gastro-esophageal reflux disease without esophagitis; I34.1 Nonrheumatic mitral (valve) prolapse
CPT/HCPCS: 81003; 99212; G0463

== ENCOUNTER 2022-01-29 09:36 | Emergency (ER) | payer MEDICAID, SELFPAY ==
--- NOTE | 2022-01-29 09:38 | ED.FEMALEGU ---
HPI - Female Genitourinary General Chief complaint: Urogenital-Female Stated complaint: uti symptoms Time Seen by Provider: 01/29/22 09:39 Source: patient and RN notes reviewed History of Present Illness HPI Narrative: Patient is a 47-year-old female who presents the urgent care with complaints of dysuria, abdominal pressure, and right flank pain. Patient states that she was on Macrobid on 21 January for 5 days for E. coli in the urine. Patient states that she saw her urologist on the in the urine was clean and she did finish the medication. Patient states that her symptoms have now returned and she wants her urine recultured. Patient denies of any known blood in the urine, fever, nausea or vomiting. No other acute complaints. No acute distress noted. Patient aware of the plan of care. Some parts of this dictation were generated by voice recognition software and may contain typographical and/or grammatical inaccuracies. Related Data Home Medications Medication Instructions Recorded Confirmed peg 3350-electrolytes 236 ml PO DIRECTED PRN 01/29/22 01/29/22 Allergies Allergy/AdvReac Type Severity Reaction Status Date / Time latex Allergy Mild RASH-CONDOMS Verified 01/29/22 09:49 AND GLOVES clindamycin Allergy Hives Verified 01/29/22 09:49 lubiprostone [From Amitiza] Allergy Itching Verified 01/29/22 09:49 propoxyphene Allergy Other Verified 01/29/22 09:49 [From Darvocet-N 100] acetaminophen AdvReac Other Verified 01/29/22 09:49 amoxicillin AdvReac Chest Pain Verified 01/29/22 09:49 codeine AdvReac Nausea and Verified 01/29/22 09:49 Vomiting hydrocodone AdvReac Other Verified 01/29/22 09:49 ketorolac [From Toradol] AdvReac Palpitation Verified 01/29/22 09:49 s levofloxacin [From Levaquin] AdvReac Chest Pain Verified 01/29/22 09:49 nitrofurantoin AdvReac Chest Pain Verified 01/29/22 09:49 [From Macrobid] paroxetine [From Paxil] AdvReac Other Verified 01/29/22 09:49 Penicillins AdvReac Chest Pain Verified 01/29/22 09:49 Sulfa (Sulfonamide AdvReac Chest Pain Verified 01/29/22 09:49 Antibiotics) vancomycin AdvReac Chest Pain Verified 01/29/22 09:49 PROPOXYPHENE NAPSYLATE AdvReac Mild I PASS Uncoded 01/29/22 09:49 OUT Review of Systems Review of Systems: CONSTITUTIONAL: Denies fever, chills, or sweats. EYES: Denies visual changes, redness, or discharge. ENT: Denies rhinorrhea, congestion, sore throat, or otalgia. CARDIOVASCULAR: Denies chest pain, palpitations, or edema. RESPIRATORY: Denies cough or dyspnea. GASTROINTESTINAL: Denies abdominal pain, nausea, vomiting, or diarrhea. GENITOURINARY: Reports of dysuria, frequency, flank pain SKIN: Denies rash or itching. MUSCULOSKELETAL: Denies back pain, joint pain, or myalgia. NEUROLOGIC: Denies headache, numbness, or weakness. All other systems reviewed are negative, except as documented in HPI. [facility] Past Medical History Medical History Anxiety Bronchitis Constipation Depression Genitourinary disorder Interstitial cystitis, urethral dilation GERD (gastroesophageal reflux disease) Interstitial cystitis Irritable bowel syndrome Mitral valve prolapse Right hand fracture Urinary tract infection Vaginal delivery Surgical History Surgical History H/O hemorrhoidectomy H/O inguinal hernia repair H/O sinus surgery H/O tubal ligation History of facial surgery Nasal reconstruction History of hysterectomy History of orthopedic surgery Right knee, trigger release finger left hand History of tonsillectomy History of urinary tract surgery Family History Family History Grandparent Diabetes mellitus, Onset Age: 200 Cerebrovascular accident, Onset Age: 200 Father Family history of elevated blood lipids Carcinoma of
[2022-01-29 09:43] VITALS: BP 118/80; PULSE 76; RESP 16; TEMP 36.4; O2SAT 100
== END 2022-01-29 10:23 | disposition home or self-care (01) ==
PROVIDERS: Emergency Provider Nurse Practitioner Family
DX: N30.90 Cystitis, unspecified without hematuria (principal); Z87.891 Personal history of nicotine dependence; K21.9 Gastro-esophageal reflux disease without esophagitis; I34.1 Nonrheumatic mitral (valve) prolapse
CPT/HCPCS: 81003; 87086; 87088; 99213; G0463

== ENCOUNTER 2022-02-02 11:27 | Emergency (ER) | payer MEDICAID, SELFPAY ==
[2022-02-02 11:35] VITALS: BP 124/79; PULSE 59; RESP 12; TEMP 36.6; O2SAT 100
[2022-02-02 11:40] VITALS: BP 124/79; PULSE 59; RESP 12; TEMP 36.6; O2SAT 100
--- NOTE | 2022-02-02 11:47 | ED.FEMALEGU ---
HPI - Female Genitourinary General Chief complaint: Urogenital-Female Stated complaint: Urinary pain Time Seen by Provider: 02/02/22 11:48 Source: patient Mode of arrival: ambulatory Limitations: no limitations History of Present Illness HPI Narrative: Ms. Jauregui is a 47-year-old female patient presenting to the clinic today with complaints of urinary discomfort/pain that began this morning.. She reports she was just seen on the for the same symptoms and wanted to make sure that the antibiotic took her the E. coli that was in her bladder. She had finished her Macrobid completely but states that she is now on more antibiotics for her stomach as she went to the ER and was diagnosed with colitis. She wanted to come in today and have her urine checked to make sure that she did not have a urinary tract infection and was concerned that she may have a yeast infection. States that she has some burning with urination and some irritation in the vaginal area. Related Data Home Medications Medication Instructions Recorded Confirmed peg 3350-electrolytes 236 ml PO DIRECTED PRN 01/29/22 01/29/22 Allergies Allergy/AdvReac Type Severity Reaction Status Date / Time latex Allergy Mild RASH-CONDOMS Verified 01/29/22 09:49 AND GLOVES clindamycin Allergy Hives Verified 01/29/22 09:49 lubiprostone [From Amitiza] Allergy Itching Verified 01/29/22 09:49 propoxyphene Allergy Other Verified 01/29/22 09:49 [From Darvocet-N 100] acetaminophen AdvReac Other Verified 01/29/22 09:49 amoxicillin AdvReac Chest Pain Verified 01/29/22 09:49 codeine AdvReac Nausea and Verified 01/29/22 09:49 Vomiting hydrocodone AdvReac Other Verified 01/29/22 09:49 ketorolac [From Toradol] AdvReac Palpitation Verified 01/29/22 09:49 s levofloxacin [From Levaquin] AdvReac Chest Pain Verified 01/29/22 09:49 nitrofurantoin AdvReac Chest Pain Verified 01/29/22 09:49 [From Macrobid] paroxetine [From Paxil] AdvReac Other Verified 01/29/22 09:49 Penicillins AdvReac Chest Pain Verified 01/29/22 09:49 Sulfa (Sulfonamide AdvReac Chest Pain Verified 01/29/22 09:49 Antibiotics) vancomycin AdvReac Chest Pain Verified 01/29/22 09:49 PROPOXYPHENE NAPSYLATE AdvReac Mild I PASS Uncoded 01/29/22 09:49 OUT Review of Systems Review of Systems: Pertinent positives per HPI. Patient denies any fever, chills, rash, headache, visual changes, dizziness, cough, runny nose, sore throat, shortness of breath, chest pain, palpitations, nausea, vomiting, diarrhea, constipation, abdominal pain. [facility] Past Medical History Medical History Anxiety Bronchitis Constipation Depression Genitourinary disorder Interstitial cystitis, urethral dilation GERD (gastroesophageal reflux disease) Interstitial cystitis Irritable bowel syndrome Mitral valve prolapse Right hand fracture Urinary tract infection Vaginal delivery Surgical History Surgical History H/O hemorrhoidectomy H/O inguinal hernia repair H/O sinus surgery H/O tubal ligation History of facial surgery Nasal reconstruction History of hysterectomy History of orthopedic surgery Right knee, trigger release finger left hand History of tonsillectomy History of urinary tract surgery Family History Family History Grandparent Diabetes mellitus, Onset Age: 200 Cerebrovascular accident, Onset Age: 200 Father Family history of elevated blood lipids Carcinoma of colon Family history of coronary artery disease, Onset Age: 201 Patient's father is Grandparent Family history of malignant neoplasm Diabetes mellitus Cerebrovascular accident Hypertension Family history of cardiovascular disease Father Family history of congestive heart failure Patient's father is
== END 2022-02-02 12:14 | disposition home or self-care (01) ==
PROVIDERS: Emergency Provider Nurse Practitioner Family
DX: N30.10 Interstitial cystitis (chronic) without hematuria (principal); Z87.891 Personal history of nicotine dependence; K21.9 Gastro-esophageal reflux disease without esophagitis; I34.1 Nonrheumatic mitral (valve) prolapse
CPT/HCPCS: 81003; 87086; 99212; G0463

== ENCOUNTER 2022-02-07 08:54 | Emergency (ER) | payer MEDICAID, SELFPAY ==
[2022-02-07 09:00] VITALS: BP 114/78; PULSE 89; RESP 18; TEMP 36.9; O2SAT 100
--- NOTE | 2022-02-07 09:14 | ED.FEMALEGU ---
HPI - Female Genitourinary General Chief complaint: Urogenital-Female Stated complaint: Urinary Problem Time Seen by Provider: 02/07/22 09:14 Source: patient Mode of arrival: ambulatory Limitations: no limitations History of Present Illness HPI Narrative: 47-year-old female presents with complaint of vaginal irritation, itching. Patient states that she has both yeast infection cream and Diflucan pills at home but wanted to make sure she does not have a urinary tract infection before starting those medications. Patient states that she gets frequent UTIs. Denies urinary frequency, urgency, dysuria. When she urinates it increases vaginal irritation. Recently took antibiotics for a UTI then took antibiotics for colitis. Is no longer having abdominal pain. No recent fever chills. No concern for STI. All systems reviewed and negative except as noted above. Related Data Home Medications Medication Instructions Recorded Confirmed peg 3350-electrolytes 236 ml PO DIRECTED PRN 01/29/22 02/07/22 famotidine 40 mg PO DAILY 02/07/22 02/07/22 Allergies Allergy/AdvReac Type Severity Reaction Status Date / Time latex Allergy Mild RASH-CONDOMS Verified 02/07/22 09:08 AND GLOVES clindamycin Allergy Hives Verified 02/07/22 09:08 lubiprostone [From Amitiza] Allergy Itching Verified 02/07/22 09:08 propoxyphene Allergy Other Verified 02/07/22 09:08 [From Darvocet-N 100] acetaminophen AdvReac Other Verified 02/07/22 09:08 amoxicillin AdvReac Chest Pain Verified 02/07/22 09:08 codeine AdvReac Nausea and Verified 02/07/22 09:08 Vomiting hydrocodone AdvReac Other Verified 02/07/22 09:08 ketorolac [From Toradol] AdvReac Palpitation Verified 02/07/22 09:08 s levofloxacin [From Levaquin] AdvReac Chest Pain Verified 02/07/22 09:08 nitrofurantoin AdvReac Chest Pain Verified 02/07/22 09:08 [From Macrobid] paroxetine [From Paxil] AdvReac Other Verified 02/07/22 09:08 Penicillins AdvReac Chest Pain Verified 02/07/22 09:08 Sulfa (Sulfonamide AdvReac Chest Pain Verified 02/07/22 09:08 Antibiotics) vancomycin AdvReac Chest Pain Verified 02/07/22 09:08 PROPOXYPHENE NAPSYLATE AdvReac Mild I PASS Uncoded 01/29/22 09:49 OUT Review of Systems Review of Systems: CONSTITUTIONAL: Denies fever, chills, or sweats. EYES: Denies visual changes, redness, or discharge. ENT: Denies rhinorrhea, congestion, sore throat, or otalgia. CARDIOVASCULAR: Denies chest pain, palpitations, or edema. RESPIRATORY: Denies cough or dyspnea. GASTROINTESTINAL: Denies abdominal pain, nausea, vomiting, or diarrhea. GENITOURINARY: Denies dysuria or hematuria. Vaginal irritation and itching. SKIN: Denies rash or itching. MUSCULOSKELETAL: Denies back pain, joint pain, or myalgia. NEUROLOGIC: Denies headache, numbness, or weakness. PSYCHIATRIC: Denies anxiety or depression. All other systems reviewed are negative, except as documented in HPI. [facility] Past Medical History Medical History Anxiety Bronchitis Constipation Depression Genitourinary disorder Interstitial cystitis, urethral dilation GERD (gastroesophageal reflux disease) Interstitial cystitis Irritable bowel syndrome Mitral valve prolapse Right hand fracture Urinary tract infection Vaginal delivery Surgical History Surgical History H/O hemorrhoidectomy H/O inguinal hernia repair H/O sinus surgery H/O tubal ligation History of facial surgery Nasal reconstruction History of hysterectomy History of orthopedic surgery Right knee, trigger release finger left hand History of tonsillectomy History of urinary tract surgery Family History Family History Grandparent Diabetes mellitus, Onset Age: 200 Cerebrovascular accident, Onset Age: 200 Father Family history of
== END 2022-02-07 09:27 | disposition home or self-care (01) ==
PROVIDERS: Emergency Provider Nurse Practitioner Family; PCP Nurse Practitioner Family
DX: N89.8 Other specified noninflammatory disorders of vagina (principal); Z87.891 Personal history of nicotine dependence; K21.9 Gastro-esophageal reflux disease without esophagitis; I34.1 Nonrheumatic mitral (valve) prolapse
CPT/HCPCS: 81003; 87086; 99213; G0463

== ENCOUNTER 2022-02-21 09:28 | Emergency (ER) | payer OTHER, SELFPAY ==
--- NOTE | 2022-02-21 09:31 | ED.FEMALEGU ---
HPI - Female Genitourinary General Chief complaint: Urogenital-Female Stated complaint: poss uti Time Seen by Provider: 02/21/22 09:31 Source: patient and RN notes reviewed History of Present Illness HPI Narrative: Patient is a 47-year-old female who presents the urgent care with complaints of a possible UTI. Patient said 2 days ago she started to have urinary frequency and some vaginal irritation. Patient denies any blood in the urine, fever, nausea, vomiting or abdominal pain. Patient is not taking anything [id number] for her symptoms. No other acute complaints. No acute distress noted. Patient aware the plan of care. Some parts of this dictation were generated by voice recognition software and may contain typographical and/or grammatical inaccuracies. Related Data Home Medications Medication Instructions Recorded Confirmed peg 3350-electrolytes 236 ml PO DIRECTED PRN 01/29/22 02/21/22 famotidine 40 mg PO DAILY 02/07/22 02/21/22 dicyclomine mg 02/21/22 02/21/22 Allergies Allergy/AdvReac Type Severity Reaction Status Date / Time latex Allergy Mild RASH-CONDOMS Verified 02/21/22 09:38 AND GLOVES clindamycin Allergy Hives Verified 02/21/22 09:38 lubiprostone [From Amitiza] Allergy Itching Verified 02/21/22 09:38 propoxyphene Allergy Other Verified 02/21/22 09:38 [From Darvocet-N 100] acetaminophen AdvReac Other Verified 02/21/22 09:38 amoxicillin AdvReac Chest Pain Verified 02/21/22 09:38 codeine AdvReac Nausea and Verified 02/21/22 09:38 Vomiting hydrocodone AdvReac Other Verified 02/21/22 09:38 ketorolac [From Toradol] AdvReac Palpitation Verified 02/21/22 09:38 s levofloxacin [From Levaquin] AdvReac Chest Pain Verified 02/21/22 09:38 nitrofurantoin AdvReac Chest Pain Verified 02/21/22 09:38 [From Macrobid] paroxetine [From Paxil] AdvReac Other Verified 02/21/22 09:38 Penicillins AdvReac Chest Pain Verified 02/21/22 09:38 Sulfa (Sulfonamide AdvReac Chest Pain Verified 02/21/22 09:38 Antibiotics) vancomycin AdvReac Chest Pain Verified 02/21/22 09:38 PROPOXYPHENE NAPSYLATE AdvReac Mild I PASS Uncoded 01/29/22 09:49 OUT Review of Systems Review of Systems: CONSTITUTIONAL: Denies fever, chills, or sweats. EYES: Denies visual changes, redness, or discharge. ENT: Denies rhinorrhea, congestion, sore throat, or otalgia. CARDIOVASCULAR: Denies chest pain, palpitations, or edema. RESPIRATORY: Denies cough or dyspnea. GASTROINTESTINAL: Denies abdominal pain, nausea, vomiting, or diarrhea. GENITOURINARY: Reports of urinary frequency and vaginal irritation SKIN: Denies rash or itching. MUSCULOSKELETAL: Denies back pain, joint pain, or myalgia. NEUROLOGIC: Denies headache, numbness, or weakness. All other systems reviewed are negative, except as documented in HPI. [facility] Past Medical History Medical History Anxiety Bronchitis Constipation Depression Genitourinary disorder Interstitial cystitis, urethral dilation GERD (gastroesophageal reflux disease) Interstitial cystitis Irritable bowel syndrome Mitral valve prolapse Right hand fracture Urinary tract infection Vaginal delivery Surgical History Surgical History H/O hemorrhoidectomy H/O inguinal hernia repair H/O sinus surgery H/O tubal ligation History of facial surgery Nasal reconstruction History of hysterectomy History of orthopedic surgery Right knee, trigger release finger left hand History of tonsillectomy History of urinary tract surgery Family History Family History Grandparent Diabetes mellitus, Onset Age: 200 Cerebrovascular accident, Onset Age: 200 Father Family history of elevated blood lipids Carcinoma of colon Family history of coronary artery disease, Onset Age: 201 Patient'
[2022-02-21 09:35] VITALS: BP 129/88; PULSE 77; RESP 16; TEMP 36.6; O2SAT 99
== END 2022-02-21 09:55 | disposition home or self-care (01) ==
PROVIDERS: Emergency Provider Nurse Practitioner Family; PCP Nurse Practitioner Family
DX: N30.90 Cystitis, unspecified without hematuria (principal); Z87.891 Personal history of nicotine dependence; K21.9 Gastro-esophageal reflux disease without esophagitis; I34.1 Nonrheumatic mitral (valve) prolapse
CPT/HCPCS: 81003; 87086; 99213; G0463

== ENCOUNTER 2022-03-02 18:54 | Emergency (ER) | payer OTHER, SELFPAY ==
[2022-03-02 18:59] VITALS: BP 116/74; PULSE 81; RESP 16; TEMP 36.9; O2SAT 99
--- NOTE | 2022-03-02 19:24 | ED.FEMALEGU ---
HPI - Female Genitourinary General Chief complaint: Urogenital-Female Stated complaint: Urinary Problem Time Seen by Provider: 03/02/22 19:24 Source: patient and RN notes reviewed Mode of arrival: ambulatory Limitations: no limitations History of Present Illness HPI Narrative: 47-year-old female presented for complaints of mid lower abdominal pain over the last couple of days. She states given her history of IBS, she is not certain if the pressure is coming from a UTI from the IBS. She states she has been treated for colitis approximately 1 month ago and has since had worsening of her irritable bowel issues. Has been taking Bentyl for symptoms. She denies hematuria, flank pain, vaginal discharge, nausea, vomiting fever or chills. Related Data Home Medications Medication Instructions Recorded Confirmed famotidine 40 mg PO DAILY 02/07/22 03/02/22 dicyclomine 20 mg PO QID 02/21/22 03/02/22 omeprazole 20 mg PO DAILY 03/02/22 03/02/22 peg 3350-electrolytes See Rx Instructions .ROUTE .COMPLEX 03/02/22 03/02/22 Allergies Allergy/AdvReac Type Severity Reaction Status Date / Time latex Allergy Mild RASH-CONDOMS Verified 03/02/22 19:07 AND GLOVES clindamycin Allergy Hives Verified 03/02/22 19:07 lubiprostone [From Amitiza] Allergy Itching Verified 03/02/22 19:07 propoxyphene Allergy Other Verified 03/02/22 19:07 [From Darvocet-N 100] acetaminophen AdvReac Other Verified 03/02/22 19:07 amoxicillin AdvReac Chest Pain Verified 03/02/22 19:07 codeine AdvReac Nausea and Verified 03/02/22 19:07 Vomiting hydrocodone AdvReac Other Verified 03/02/22 19:07 ketorolac [From Toradol] AdvReac Palpitation Verified 03/02/22 19:07 s levofloxacin [From Levaquin] AdvReac Chest Pain Verified 03/02/22 19:07 nitrofurantoin AdvReac Chest Pain Verified 03/02/22 19:07 [From Macrobid] paroxetine [From Paxil] AdvReac Other Verified 03/02/22 19:07 Penicillins AdvReac Chest Pain Verified 03/02/22 19:07 Sulfa (Sulfonamide AdvReac Chest Pain Verified 03/02/22 19:07 Antibiotics) vancomycin AdvReac Chest Pain Verified 03/02/22 19:07 PROPOXYPHENE NAPSYLATE AdvReac Mild I PASS Uncoded 03/02/22 19:07 OUT Review of Systems Review of Systems: CONSTITUTIONAL: Denies body aches, fever, chills, or sweats. CARDIOVASCULAR: Denies chest pain, palpitations, or edema. RESPIRATORY: Denies cough or dyspnea. GASTROINTESTINAL: Reports low abdominal pain, denies nausea, vomiting, or diarrhea. GENITOURINARY: Denies dysuria, frequency, urgency, hematuria, flank pain SKIN: Denies rash, itching, or wounds. MUSCULOSKELETAL: Denies back pain or myalgia. [facility] Past Medical History Medical History Anxiety Bronchitis Constipation Depression Genitourinary disorder Interstitial cystitis, urethral dilation GERD (gastroesophageal reflux disease) Interstitial cystitis Irritable bowel syndrome Mitral valve prolapse Right hand fracture Urinary tract infection Vaginal delivery Surgical History Surgical History H/O hemorrhoidectomy H/O inguinal hernia repair H/O sinus surgery H/O tubal ligation History of facial surgery Nasal reconstruction History of hysterectomy History of orthopedic surgery Right knee, trigger release finger left hand History of tonsillectomy History of urinary tract surgery Family History Family History Grandparent Diabetes mellitus, Onset Age: 200 Cerebrovascular accident, Onset Age: 200 Father Family history of elevated blood lipids Carcinoma of colon Family history of coronary artery disease, Onset Age: 201 Patient's father is Grandparent Family history of malignant neoplasm Diabetes mellitus Cerebrovascular accident Hypertension Family history of cardiovascular disease Father
== END 2022-03-02 19:40 | disposition home or self-care (01) ==
PROVIDERS: Emergency Provider Nurse Practitioner Family; PCP Nurse Practitioner Family
DX: R10.30 Lower abdominal pain, unspecified (principal); K21.9 Gastro-esophageal reflux disease without esophagitis; I34.1 Nonrheumatic mitral (valve) prolapse; Z87.891 Personal history of nicotine dependence
CPT/HCPCS: 81003; 87086; 99213; G0463

== ENCOUNTER 2022-03-16 13:43 | Emergency (ER) | payer OTHER, SELFPAY ==
[2022-03-16 13:44] VITALS: BP 120/70; PULSE 79; RESP 16; TEMP 35.7; O2SAT 99
--- NOTE | 2022-03-16 13:51 | ED.FEMALEGU ---
HPI - Female Genitourinary General Chief complaint: Urogenital-Female Stated complaint: bladder issues Time Seen by Provider: 03/16/22 13:52 Source: patient and RN notes reviewed History of Present Illness HPI Narrative: Patient is a 47-year-old female who presents the urgent care with complaints of a possible UTI. Patient states that 3 days ago she started to have some dysuria. Denies of any fever, chills, nausea, vomiting or abdominal pain. No other acute complaints. No acute distress noted. Patient aware of the plan of care. Some parts of this dictation were generated by voice recognition software and may contain typographical and/or grammatical inaccuracies. Related Data Home Medications Medication Instructions Recorded Confirmed famotidine 40 mg PO DAILY 02/07/22 03/02/22 dicyclomine 20 mg PO QID 02/21/22 03/02/22 omeprazole 20 mg PO DAILY 03/02/22 03/02/22 peg 3350-electrolytes See Rx Instructions .ROUTE .COMPLEX 03/02/22 03/02/22 Allergies Allergy/AdvReac Type Severity Reaction Status Date / Time latex Allergy Mild RASH-CONDOMS Verified 03/02/22 19:07 AND GLOVES clindamycin Allergy Hives Verified 03/02/22 19:07 lubiprostone [From Amitiza] Allergy Itching Verified 03/02/22 19:07 propoxyphene Allergy Other Verified 03/02/22 19:07 [From Darvocet-N 100] acetaminophen AdvReac Other Verified 03/02/22 19:07 amoxicillin AdvReac Chest Pain Verified 03/02/22 19:07 codeine AdvReac Nausea and Verified 03/02/22 19:07 Vomiting hydrocodone AdvReac Other Verified 03/02/22 19:07 ketorolac [From Toradol] AdvReac Palpitation Verified 03/02/22 19:07 s levofloxacin [From Levaquin] AdvReac Chest Pain Verified 03/02/22 19:07 nitrofurantoin AdvReac Chest Pain Verified 03/02/22 19:07 [From Macrobid] paroxetine [From Paxil] AdvReac Other Verified 03/02/22 19:07 Penicillins AdvReac Chest Pain Verified 03/02/22 19:07 Sulfa (Sulfonamide AdvReac Chest Pain Verified 03/02/22 19:07 Antibiotics) vancomycin AdvReac Chest Pain Verified 03/02/22 19:07 PROPOXYPHENE NAPSYLATE AdvReac Mild I PASS Uncoded 03/02/22 19:07 OUT Review of Systems Review of Systems: CONSTITUTIONAL: Denies fever, chills, or sweats. EYES: Denies visual changes, redness, or discharge. ENT: Denies rhinorrhea, congestion, sore throat, or otalgia. CARDIOVASCULAR: Denies chest pain, palpitations, or edema. RESPIRATORY: Denies cough or dyspnea. GASTROINTESTINAL: Denies abdominal pain, nausea, vomiting, or diarrhea. GENITOURINARY: Reports of dysuria SKIN: Denies rash or itching. MUSCULOSKELETAL: Denies back pain, joint pain, or myalgia. NEUROLOGIC: Denies headache, numbness, or weakness. All other systems reviewed are negative, except as documented in HPI. [facility] Past Medical History Medical History Anxiety Bronchitis Constipation Depression Genitourinary disorder Interstitial cystitis, urethral dilation GERD (gastroesophageal reflux disease) Interstitial cystitis Irritable bowel syndrome Mitral valve prolapse Right hand fracture Urinary tract infection Vaginal delivery Surgical History Surgical History H/O hemorrhoidectomy H/O inguinal hernia repair H/O sinus surgery H/O tubal ligation History of facial surgery Nasal reconstruction History of hysterectomy History of orthopedic surgery Right knee, trigger release finger left hand History of tonsillectomy History of urinary tract surgery Family History Family History Grandparent Diabetes mellitus, Onset Age: 200 Cerebrovascular accident, Onset Age: 200 Father Family history of elevated blood lipids Carcinoma of colon Family history of coronary artery disease, Onset Age: 201 Patient's father is Grandparent Family history of malignant neoplasm Diab
== END 2022-03-16 14:15 | disposition home or self-care (01) ==
PROVIDERS: Emergency Provider Nurse Practitioner Family; PCP Nurse Practitioner Family
DX: N30.90 Cystitis, unspecified without hematuria (principal); Z87.891 Personal history of nicotine dependence
CPT/HCPCS: 81003; 87086; 87088; 99213; G0463

== ENCOUNTER 2022-03-29 10:31 | Emergency (ER) | payer SELFPAY ==
[2022-03-29 10:42] VITALS: BP 130/80; PULSE 67; RESP 16; TEMP 36.1; O2SAT 100
--- NOTE | 2022-03-29 10:45 | ED.FEMALEGU ---
HPI - Female Genitourinary General Chief complaint: Urogenital-Female Stated complaint: UTI SYMPTOMS Time Seen by Provider: 03/29/22 10:45 Source: patient and RN notes reviewed Mode of arrival: ambulatory Limitations: no limitations History of Present Illness HPI Narrative: 47 y/o female presented for c/o urinary frequency x3 days. Endorses left sided abdominal pain after changing gatorade. States she drank sugar free then regular and noticed the pain. States it could be due to IBS but she wanted to check the urine to be safe. Denies associated nausea, vomiting, diarrhea, hematochezia, hematuria, vaginal discharge, fever or chills. She was seen for similar complaints 03/02/22 and 03/16/22. Urine tests have been negative. Related Data Home Medications Medication Instructions Recorded Confirmed peg 3350-electrolytes See Rx Instructions .ROUTE .COMPLEX 03/02/22 03/02/22 Allergies Allergy/AdvReac Type Severity Reaction Status Date / Time latex Allergy Mild RASH-CONDOMS Verified 03/02/22 19:07 AND GLOVES clindamycin Allergy Hives Verified 03/02/22 19:07 lubiprostone [From Amitiza] Allergy Itching Verified 03/02/22 19:07 propoxyphene Allergy Other Verified 03/02/22 19:07 [From Darvocet-N 100] acetaminophen AdvReac Other Verified 03/02/22 19:07 amoxicillin AdvReac Chest Pain Verified 03/02/22 19:07 codeine AdvReac Nausea and Verified 03/02/22 19:07 Vomiting hydrocodone AdvReac Other Verified 03/02/22 19:07 ketorolac [From Toradol] AdvReac Palpitation Verified 03/02/22 19:07 s levofloxacin [From Levaquin] AdvReac Chest Pain Verified 03/02/22 19:07 nitrofurantoin AdvReac Chest Pain Verified 03/02/22 19:07 [From Macrobid] paroxetine [From Paxil] AdvReac Other Verified 03/02/22 19:07 Penicillins AdvReac Chest Pain Verified 03/02/22 19:07 Sulfa (Sulfonamide AdvReac Chest Pain Verified 03/02/22 19:07 Antibiotics) vancomycin AdvReac Chest Pain Verified 03/02/22 19:07 PROPOXYPHENE NAPSYLATE AdvReac Mild I PASS Uncoded 03/02/22 19:07 OUT Review of Systems Review of Systems: CONSTITUTIONAL: Denies body aches, fever, chills, or sweats. CARDIOVASCULAR: Denies chest pain, palpitations, or edema. RESPIRATORY: Denies cough or dyspnea. GASTROINTESTINAL: Denies abdominal pain, nausea, vomiting, or diarrhea. GENITOURINARY: Reports , frequency, denies urgency, hematuria, flank pain SKIN: Denies rash, itching, or wounds. MUSCULOSKELETAL: Denies back pain or myalgia. [facility] Past Medical History Medical History Anxiety Bronchitis Constipation Depression Genitourinary disorder Interstitial cystitis, urethral dilation GERD (gastroesophageal reflux disease) Interstitial cystitis Irritable bowel syndrome Mitral valve prolapse Right hand fracture Urinary tract infection Vaginal delivery Surgical History Surgical History H/O hemorrhoidectomy H/O inguinal hernia repair H/O sinus surgery H/O tubal ligation History of facial surgery Nasal reconstruction History of hysterectomy History of orthopedic surgery Right knee, trigger release finger left hand History of tonsillectomy History of urinary tract surgery Family History Family History Grandparent Diabetes mellitus, Onset Age: 200 Cerebrovascular accident, Onset Age: 200 Father Family history of elevated blood lipids Carcinoma of colon Family history of coronary artery disease, Onset Age: 201 Patient's father is Grandparent Family history of malignant neoplasm Diabetes mellitus Cerebrovascular accident Hypertension Family history of cardiovascular disease Father Family history of congestive heart failure Patient's father is Hypertension Carcinoma of colon Family history of emphysema Family history o
== END 2022-03-29 11:04 | disposition home or self-care (01) ==
PROVIDERS: Emergency Provider Nurse Practitioner Family; PCP Nurse Practitioner Family
DX: R35.0 Frequency of micturition (principal); K21.9 Gastro-esophageal reflux disease without esophagitis; I34.1 Nonrheumatic mitral (valve) prolapse; Z87.891 Personal history of nicotine dependence
CPT/HCPCS: 81003; 99212; G0463

== ENCOUNTER 2022-04-06 13:40 | Emergency (ER) | payer OTHER, SELFPAY ==
[2022-04-06 13:52] VITALS: BP 104/70; PULSE 69; RESP 18; TEMP 36.7; O2SAT 100
--- NOTE | 2022-04-06 14:21 | ED.FEMALEGU ---
HPI - Female Genitourinary General Chief complaint: Urogenital-Female Stated complaint: Urinary Problem Time Seen by Provider: 04/06/22 14:05 Source: patient, RN notes reviewed and old records reviewed Mode of arrival: ambulatory Limitations: no limitations History of Present Illness HPI Narrative: 47 year old female who presents to express care with complaints of painful urination for the past couple of days. Has also been having some problems with her IBS and having some constipation issues. She report that she is suppose to see her admissions advisor in near future and she takes her PEG 3350 with electrolytes for her constipation.Patient denies any visible blood in her urine reports that she has frequency with her urination. Patient states some vaginal burning and some vaginal discharge, reports no concern for any STD exposure. Patient denies any nausea or vomiting denies any fevers, chills, or sweats. MD elicited complaint: dysuria and other (vaginal burning and some discharge) Pertinent past history: interstitial cystits Onset (ago): day(s) (2) Location of symptoms: urethra and vaginal Related Data Home Medications Medication Instructions Recorded Confirmed peg 3350-electrolytes See Rx Instructions .ROUTE .COMPLEX 03/02/22 03/02/22 dicyclomine mg 04/06/22 Allergies Allergy/AdvReac Type Severity Reaction Status Date / Time latex Allergy Mild RASH-CONDOMS Verified 03/02/22 19:07 AND GLOVES clindamycin Allergy Hives Verified 03/02/22 19:07 lubiprostone [From Amitiza] Allergy Itching Verified 03/02/22 19:07 propoxyphene Allergy Other Verified 03/02/22 19:07 [From Darvocet-N 100] acetaminophen AdvReac Other Verified 03/02/22 19:07 amoxicillin AdvReac Chest Pain Verified 03/02/22 19:07 codeine AdvReac Nausea and Verified 03/02/22 19:07 Vomiting hydrocodone AdvReac Other Verified 03/02/22 19:07 ketorolac [From Toradol] AdvReac Palpitation Verified 03/02/22 19:07 s levofloxacin [From Levaquin] AdvReac Chest Pain Verified 03/02/22 19:07 nitrofurantoin AdvReac Chest Pain Verified 03/02/22 19:07 [From Macrobid] paroxetine [From Paxil] AdvReac Other Verified 03/02/22 19:07 Penicillins AdvReac Chest Pain Verified 03/02/22 19:07 Sulfa (Sulfonamide AdvReac Chest Pain Verified 03/02/22 19:07 Antibiotics) vancomycin AdvReac Chest Pain Verified 03/02/22 19:07 PROPOXYPHENE NAPSYLATE AdvReac Mild I PASS Uncoded 03/02/22 19:07 OUT Review of Systems Review of Systems: CONSTITUTIONAL: Denies fever, chills, or sweats. EYES: Denies visual changes, redness, or discharge. ENT: Denies rhinorrhea, congestion, sore throat, or otalgia. CARDIOVASCULAR: Denies chest pain, palpitations, or edema. RESPIRATORY: Denies cough or dyspnea. GASTROINTESTINAL: Denies abdominal pain, nausea, vomiting, or diarrhea, reports some constipation. GENITOURINARY: Positive for dysuria and frequency no visible hematuria. SKIN: Denies rash or itching. MUSCULOSKELETAL: Denies back pain, joint pain, or myalgia. NEUROLOGIC: Denies headache, numbness, or weakness. PSYCHIATRIC: Positive for anxiety or depression. All systems reviewed & are unremarkable except as noted in HPI and below PMFSH Past Medical History Medical History Anxiety Bronchitis Constipation Depression Genitourinary disorder Interstitial cystitis, urethral dilation GERD (gastroesophageal reflux disease) Interstitial cystitis Irritable bowel syndrome Mitral valve prolapse Right hand fracture Urinary tract infection Vaginal delivery Surgical History Surgical History H/O hemorrhoidectomy H/O inguinal hernia repair H/O sinus surgery H/O tubal ligation History of facial surgery Nasal reconstruction History of hysterectomy History of orthopedic surgery Right knee, trigger release finger left hand History of tonsillectomy History of urinary t
== END 2022-04-06 14:42 | disposition home or self-care (01) ==
PROVIDERS: Emergency Provider Registered Nurse; PCP Nurse Practitioner Family
DX: R30.0 Dysuria (principal); N30.10 Interstitial cystitis (chronic) without hematuria; Z87.891 Personal history of nicotine dependence; K21.9 Gastro-esophageal reflux disease without esophagitis; I34.1 Nonrheumatic mitral (valve) prolapse
CPT/HCPCS: 81003; 87086; 99213; G0463

== ENCOUNTER 2022-04-12 10:01 | Emergency (ER) | payer OTHER, SELFPAY ==
--- NOTE | 2022-04-12 10:05 | ED.FEMALEGU ---
HPI - Female Genitourinary General Chief complaint: Urogenital-Female Stated complaint: uti symptoms Time Seen by Provider: 04/12/22 10:05 Source: patient and RN notes reviewed History of Present Illness HPI Narrative: Patient is a 47-year-old female who presents the urgent care with complaints of urinary frequency that started last night, this morning. Patient states she was placed on a new muscle relaxer yesterday and believes it is due from the muscle relaxer. Patient states she is believes it is Flexeril. States that they stopped the Bentyl for her abdominal cramping due to causing constipation. Patient denies of any nausea, vomiting, fever, low back pain. Patient has not taken anything [id number] for her symptoms. No other acute complaints. No acute distress noted. Patient aware of the plan of care. Some parts of this dictation were generated by voice recognition software and may contain typographical and/or grammatical inaccuracies. Related Data Home Medications Medication Instructions Recorded Confirmed peg 3350-electrolytes 236 See Rx Instructions .Route .COMPLEX 03/02/22 03/02/22 gram-22.74 gram-6.74 gram-5.86 gram solution cyclobenzaprine 5 mg tablet tablet 04/12/22 Allergies Allergy/AdvReac Type Severity Reaction Status Date / Time latex Allergy Mild RASH-CONDOMS Verified 03/02/22 19:07 AND GLOVES clindamycin Allergy Hives Verified 03/02/22 19:07 lubiprostone [From Amitiza] Allergy Itching Verified 03/02/22 19:07 propoxyphene Allergy Other Verified 03/02/22 19:07 [From Darvocet-N 100] acetaminophen AdvReac Other Verified 03/02/22 19:07 amoxicillin AdvReac Chest Pain Verified 03/02/22 19:07 codeine AdvReac Nausea and Verified 03/02/22 19:07 Vomiting hydrocodone AdvReac Other Verified 03/02/22 19:07 ketorolac [From Toradol] AdvReac Palpitation Verified 03/02/22 19:07 s levofloxacin [From Levaquin] AdvReac Chest Pain Verified 03/02/22 19:07 nitrofurantoin AdvReac Chest Pain Verified 03/02/22 19:07 [From Macrobid] paroxetine [From Paxil] AdvReac Other Verified 03/02/22 19:07 Penicillins AdvReac Chest Pain Verified 03/02/22 19:07 Sulfa (Sulfonamide AdvReac Chest Pain Verified 03/02/22 19:07 Antibiotics) vancomycin AdvReac Chest Pain Verified 03/02/22 19:07 PROPOXYPHENE NAPSYLATE AdvReac Mild I PASS Uncoded 03/02/22 19:07 OUT Review of Systems Review of Systems: CONSTITUTIONAL: Denies fever, chills, or sweats. EYES: Denies visual changes, redness, or discharge. ENT: Denies rhinorrhea, congestion, sore throat, or otalgia. CARDIOVASCULAR: Denies chest pain, palpitations, or edema. RESPIRATORY: Denies cough or dyspnea. GASTROINTESTINAL: Denies abdominal pain, nausea, vomiting, or diarrhea. GENITOURINARY: Reports of urinary frequency SKIN: Denies rash or itching. MUSCULOSKELETAL: Denies back pain, joint pain, or myalgia. NEUROLOGIC: Denies headache, numbness, or weakness. All other systems reviewed are negative, except as documented in HPI. [facility] Past Medical History Medical History Anxiety Bronchitis Constipation Depression Genitourinary disorder Interstitial cystitis, urethral dilation GERD (gastroesophageal reflux disease) Interstitial cystitis Irritable bowel syndrome Mitral valve prolapse Right hand fracture Urinary tract infection Vaginal delivery Surgical History Surgical History H/O hemorrhoidectomy H/O inguinal hernia repair H/O sinus surgery H/O tubal ligation History of facial surgery Nasal reconstruction History of hysterectomy History of orthopedic surgery Right knee, trigger release finger left hand History of tonsillectomy History of urinary tract surgery Family History Family History Grandparent Diabetes mellitus, Onset Age: 200 Cerebrova
[2022-04-12 10:10] VITALS: BP 132/102; PULSE 71; RESP 16; TEMP 35.9; O2SAT 100
== END 2022-04-12 10:27 | disposition home or self-care (01) ==
PROVIDERS: Emergency Provider Nurse Practitioner Family; PCP Nurse Practitioner Family
DX: R35.0 Frequency of micturition (principal); F17.210 Nicotine dependence, cigarettes, uncomplicated
CPT/HCPCS: 81003; 99212; G0463

== ENCOUNTER 2022-04-25 14:42 | Emergency (ER) | payer OTHER, SELFPAY ==
--- NOTE | 2022-04-25 14:47 | ED.FEMALEGU ---
HPI - Female Genitourinary General Chief complaint: Urogenital-Female Stated complaint: poss uti Time Seen by Provider: 04/25/22 14:49 Source: patient Mode of arrival: ambulatory Limitations: no limitations History of Present Illness HPI Narrative: Ms. dorsey is a 47-year-old female patient presenting to the clinic today with complaints of possible UTI. She reports. She is having urinary frequency and irritation x2 days. She denies any fever, chills, lower abdominal pain, or flank pain. History of IC Related Data Home Medications Medication Instructions Recorded Confirmed clotrimazole 1 % topical cream 1 applic topical DAILY 04/25/22 04/25/22 Allergies Allergy/AdvReac Type Severity Reaction Status Date / Time latex Allergy Mild RASH-CONDOMS Verified 03/02/22 19:07 AND GLOVES clindamycin Allergy Hives Verified 03/02/22 19:07 lubiprostone [From Amitiza] Allergy Itching Verified 03/02/22 19:07 propoxyphene Allergy Other Verified 03/02/22 19:07 [From Darvocet-N 100] acetaminophen AdvReac Other Verified 03/02/22 19:07 amoxicillin AdvReac Chest Pain Verified 03/02/22 19:07 codeine AdvReac Nausea and Verified 03/02/22 19:07 Vomiting hydrocodone AdvReac Other Verified 03/02/22 19:07 ketorolac [From Toradol] AdvReac Palpitation Verified 03/02/22 19:07 s levofloxacin [From Levaquin] AdvReac Chest Pain Verified 03/02/22 19:07 nitrofurantoin AdvReac Chest Pain Verified 03/02/22 19:07 [From Macrobid] paroxetine [From Paxil] AdvReac Other Verified 03/02/22 19:07 Penicillins AdvReac Chest Pain Verified 03/02/22 19:07 Sulfa (Sulfonamide AdvReac Chest Pain Verified 03/02/22 19:07 Antibiotics) vancomycin AdvReac Chest Pain Verified 03/02/22 19:07 PROPOXYPHENE NAPSYLATE AdvReac Mild I PASS Uncoded 03/02/22 19:07 OUT Review of Systems Review of Systems: Pertinent positives per HPI. Patient denies any fever, chills, rash, headache, visual changes, dizziness, cough, runny nose, sore throat, shortness of breath, chest pain, palpitations, nausea, vomiting, diarrhea, constipation, abdominal pain. [facility] Past Medical History Medical History Anxiety Bronchitis Constipation Depression Genitourinary disorder Interstitial cystitis, urethral dilation GERD (gastroesophageal reflux disease) Interstitial cystitis Irritable bowel syndrome Mitral valve prolapse Right hand fracture Urinary tract infection Vaginal delivery Surgical History Surgical History H/O hemorrhoidectomy H/O inguinal hernia repair H/O sinus surgery H/O tubal ligation History of facial surgery Nasal reconstruction History of hysterectomy History of orthopedic surgery Right knee, trigger release finger left hand History of tonsillectomy History of urinary tract surgery Family History Family History Grandparent Diabetes mellitus, Onset Age: 200 Cerebrovascular accident, Onset Age: 200 Father Family history of elevated blood lipids Carcinoma of colon Family history of coronary artery disease, Onset Age: 201 Patient's father is Grandparent Family history of malignant neoplasm Diabetes mellitus Cerebrovascular accident Hypertension Family history of cardiovascular disease Father Family history of congestive heart failure Patient's father is Hypertension Carcinoma of colon Family history of emphysema Family history of cardiovascular disease Sibling Hypertension Grandparent Diabetes mellitus Social History Social History Smoking packs per day: 1.5 Smoking cigarettes per day: 30.0 Years smoked: 13 Smoking pack-years: 19.50 Smoking status: Former smoker Tobacco type: cigarettes Second hand toba
[2022-04-25 14:52] VITALS: BP 119/70; PULSE 80; RESP 16; TEMP 37.1; O2SAT 99
== END 2022-04-25 15:16 | disposition home or self-care (01) ==
PROVIDERS: Emergency Provider Nurse Practitioner Family
DX: N30.10 Interstitial cystitis (chronic) without hematuria (principal); Z87.891 Personal history of nicotine dependence; K21.9 Gastro-esophageal reflux disease without esophagitis; I34.1 Nonrheumatic mitral (valve) prolapse
CPT/HCPCS: 81003; 99212; G0463

== ENCOUNTER 2022-05-02 18:29 | Emergency (ER) | payer OTHER, SELFPAY ==
[2022-05-02 18:35] VITALS: BP 128/80; PULSE 80; RESP 18; TEMP 36.7; O2SAT 100
== END 2022-05-02 19:00 | disposition left against medical advice (07) ==
DX: R10.31 Right lower quadrant pain (principal)
CPT/HCPCS: 99199

== ENCOUNTER 2022-05-04 16:48 | Emergency (ER) | payer OTHER, SELFPAY ==
--- NOTE | 2022-05-04 16:50 | ED.FEMALEGU ---
HPI - Female Genitourinary General Chief complaint: Urogenital-Female Stated complaint: Urinary Problem Time Seen by Provider: 05/04/22 16:49 Source: patient Mode of arrival: ambulatory Limitations: no limitations History of Present Illness HPI Narrative: Ms. Jauregui is a 47-year-old female patient presenting to the clinic today with complaints of possible UTI. She reports that she was placed on ciprofloxacin approximately 1 week ago for right lower quadrant pain/dysuria. She comes in solely today to have her urine rechecked for infection as not all of her right lower quadrant pain has dissipated but it has improved significantly. She has 1 more dose of ciprofloxacin left and she is following up with her primary care provider Related Data Home Medications Medication Instructions Recorded Confirmed No Home Medications 05/04/22 05/04/22 Allergies Allergy/AdvReac Type Severity Reaction Status Date / Time latex Allergy Mild RASH-CONDOMS Verified 05/04/22 16:57 AND GLOVES clindamycin Allergy Hives Verified 05/04/22 16:57 lubiprostone [From Amitiza] Allergy Itching Verified 05/04/22 16:57 propoxyphene Allergy Other Verified 05/04/22 16:57 [From Darvocet-N 100] acetaminophen AdvReac Other Verified 05/04/22 16:57 amoxicillin AdvReac Chest Pain Verified 05/04/22 16:57 codeine AdvReac Nausea and Verified 05/04/22 16:57 Vomiting hydrocodone AdvReac Other Verified 05/04/22 16:57 ketorolac [From Toradol] AdvReac Palpitation Verified 05/04/22 16:57 s levofloxacin [From Levaquin] AdvReac Chest Pain Verified 05/04/22 16:57 nitrofurantoin AdvReac Chest Pain Verified 05/04/22 16:57 [From Macrobid] paroxetine [From Paxil] AdvReac Other Verified 05/04/22 16:57 Penicillins AdvReac Chest Pain Verified 05/04/22 16:57 Sulfa (Sulfonamide AdvReac Chest Pain Verified 05/04/22 16:57 Antibiotics) vancomycin AdvReac Chest Pain Verified 05/04/22 16:57 PROPOXYPHENE NAPSYLATE AdvReac Mild I PASS Uncoded 03/02/22 19:07 OUT Review of Systems Review of Systems: Pertinent positives per HPI. Patient denies any fever, chills, rash, headache, visual changes, dizziness, cough, runny nose, sore throat, shortness of breath, chest pain, palpitations, nausea, vomiting, diarrhea, constipation, abdominal pain. [facility] Past Medical History Medical History Anxiety Bronchitis Constipation Depression Genitourinary disorder Interstitial cystitis, urethral dilation GERD (gastroesophageal reflux disease) Interstitial cystitis Irritable bowel syndrome Mitral valve prolapse Right hand fracture Urinary tract infection Vaginal delivery Surgical History Surgical History H/O hemorrhoidectomy H/O inguinal hernia repair H/O sinus surgery H/O tubal ligation History of facial surgery Nasal reconstruction History of hysterectomy History of orthopedic surgery Right knee, trigger release finger left hand History of tonsillectomy History of urinary tract surgery Family History Family History Grandparent Diabetes mellitus, Onset Age: 200 Cerebrovascular accident, Onset Age: 200 Father Family history of elevated blood lipids Carcinoma of colon Family history of coronary artery disease, Onset Age: 201 Patient's father is Grandparent Family history of malignant neoplasm Diabetes mellitus Cerebrovascular accident Hypertension Family history of cardiovascular disease Father Family history of congestive heart failure Patient's father is Hypertension Carcinoma of colon Family history of emphysema Family history of cardiovascular disease Sibling Hypertension Grandparent Diabetes mellitus Social History Social History (Reviewed 05/04/22 @ 16:52 by Armando Velazquez APRN
[2022-05-04 16:56] VITALS: BP 115/71; PULSE 75; RESP 16; TEMP 36.6; O2SAT 100
== END 2022-05-04 17:18 | disposition home or self-care (01) ==
PROVIDERS: Emergency Provider Nurse Practitioner Family
DX: R10.31 Right lower quadrant pain (principal); K21.9 Gastro-esophageal reflux disease without esophagitis; I34.1 Nonrheumatic mitral (valve) prolapse
CPT/HCPCS: 81003; 87077; 87086; 87186; 99213; G0463

== ENCOUNTER 2022-05-24 17:36 | Emergency (ER) | payer SELFPAY ==
[2022-05-24 17:46] VITALS: BP 126/78; PULSE 93; RESP 16; TEMP 36.6; O2SAT 98
--- NOTE | 2022-05-24 18:07 | ED.FEMALEGU ---
HPI - Female Genitourinary General Chief complaint: Urogenital-Female Stated complaint: check urine Time Seen by Provider: 05/24/22 18:21 Source: patient and RN notes reviewed Mode of arrival: ambulatory Limitations: no limitations History of Present Illness HPI Narrative: 37-year-old female presents with concern for urine recheck. She reports she is currently on day 3 of a course of Bactrim for urinary tract infection. She would like to make sure that the antibiotic is working. She denies any symptoms other than her chronic abdominal pain. MD elicited complaint: UTI Related Data Home Medications Medication Instructions Recorded Confirmed polyethylene glycol 3350 17 17 g PO DAILY 05/14/22 05/14/22 gram/dose oral powder (Laxative PEG 3350) Allergies Allergy/AdvReac Type Severity Reaction Status Date / Time latex Allergy Mild RASH-CONDOMS Verified 05/14/22 08:19 AND GLOVES clindamycin Allergy Hives Verified 05/14/22 08:19 lubiprostone [From Amitiza] Allergy Itching Verified 05/14/22 08:19 propoxyphene Allergy Other Verified 05/14/22 08:19 [From Darvocet-N 100] acetaminophen AdvReac Other Verified 05/14/22 08:19 amoxicillin AdvReac Chest Pain Verified 05/14/22 08:19 codeine AdvReac Nausea and Verified 05/14/22 08:19 Vomiting hydrocodone AdvReac Other Verified 05/14/22 08:19 ketorolac [From Toradol] AdvReac Palpitation Verified 05/14/22 08:19 s levofloxacin [From Levaquin] AdvReac Chest Pain Verified 05/14/22 08:19 nitrofurantoin AdvReac Chest Pain Verified 05/14/22 08:19 [From Macrobid] paroxetine [From Paxil] AdvReac Other Verified 05/14/22 08:19 Penicillins AdvReac Chest Pain Verified 05/14/22 08:19 Sulfa (Sulfonamide AdvReac Chest Pain Verified 05/14/22 08:19 Antibiotics) vancomycin AdvReac Chest Pain Verified 05/14/22 08:19 PROPOXYPHENE NAPSYLATE AdvReac Mild I PASS Uncoded 03/02/22 19:07 OUT Review of Systems Review of Systems: CONSTITUTIONAL: Denies malaise, chills, sweats, or fever. CARDIOVASCULAR: Denies chest pain, palpitations, or edema. RESPIRATORY: Denies cough or dyspnea. GASTROINTESTINAL: Denies new abdominal pain, nausea, vomiting, diarrhea GENITOURINARY: Denies dysuria, frequency, urgency, suprapubic pressure. Denies flank pain or hematuria. SKIN: Denies rash or itching. MUSCULOSKELETAL: Denies back pain or myalgia. All systems reviewed & are unremarkable except as noted in HPI and below PMFSH Past Medical History Medical History Anxiety Bronchitis Constipation Depression Genitourinary disorder Interstitial cystitis, urethral dilation GERD (gastroesophageal reflux disease) Interstitial cystitis Irritable bowel syndrome Mitral valve prolapse Right hand fracture Urinary tract infection Vaginal delivery Surgical History Surgical History H/O hemorrhoidectomy H/O inguinal hernia repair H/O sinus surgery H/O tubal ligation History of facial surgery Nasal reconstruction History of hysterectomy History of orthopedic surgery Right knee, trigger release finger left hand History of tonsillectomy History of urinary tract surgery Family History Family History Grandparent Diabetes mellitus, Onset Age: 200 Cerebrovascular accident, Onset Age: 200 Father Family history of elevated blood lipids Carcinoma of colon Family history of coronary artery disease, Onset Age: 201 Patient's father is Grandparent Family history of malignant neoplasm Diabetes mellitus Cerebrovascular accident Hypertension Family history of cardiovascular disease Father Family history of congestive heart failure Patient's father is Hypertension Carcinoma of colon Family history of emphysema Family history of cardiovascular disease Sibling Hypertens
== END 2022-05-24 18:26 | disposition home or self-care (01) ==
PROVIDERS: Emergency Provider Nurse Practitioner; PCP Internal Medicine
DX: Z71.1 Person with feared health complaint in whom no diagnosis is made (principal); K21.9 Gastro-esophageal reflux disease without esophagitis; I34.1 Nonrheumatic mitral (valve) prolapse
CPT/HCPCS: 81003; 87077; 87086; 87186; 99213; G0463

== ENCOUNTER 2022-05-26 17:03 | Emergency (ER) | payer SELFPAY ==
[2022-05-26 17:06] VITALS: BP 122/79; PULSE 73; RESP 18; TEMP 36.4; O2SAT 100
[2022-05-26 17:39] LABS: Basophils Percent Auto 0.5 % (0.2-1.2); Eosinophils Absolute Auto 0.1 K/mm3 (0-0.3); Eosinophils Percent Auto 1.5 % (0-4.4); Hematocrit 39.1 % (37.0-47.0); Hemoglobin 13.2 g/dL (12.0-15.0); Immature Granulocyte Absolute 0.02 K/mm3 (0.00-0.031); Immature Granulocyte Percent A 0.3 % (0-0.5); Lymphocytes Absolute Auto 1.55 K/mm3 (0.9-3.2); Lymphocytes Percent Auto 26.2 % (18.3-44.2); Mean Corpuscular HGB Conc 33.8 g/dl (32-36); Mean Corpuscular Hemoglobin 29.7 pg (26-34); Mean Corpuscular Volume 87.9 fl (80-100); Mean Platelet Volume 10.3 fl (7.4-10.4); Monocytes Absolute Auto 0.4 K/mm3 (0.1-0.6); Monocytes Percent Auto 6.4 % (2.6-8.5); Neutrophils Absolute Auto 3.9 K/mm3 (1.3-6.7); Neutrophils Percent Auto 65.1 % (45.5-73.1); Platelet Count Result 173 k/mm3 (150-375); Red Blood Count 4.45 M/mm3 (4.2-5.4); Red Cell Distribution Width 12.4 % (11.5-14.5); White Blood Count 5.9 K/mm3 (4.5-10.0)
--- NOTE | 2022-05-26 17:42 | ED.ABDPAIN ---
HPI - Abdominal Pain General Chief Complaint: Abdominal Pain Stated Complaint: abd pain Time Seen by Provider: 05/26/22 17:31 History of Present Illness HPI narrative: 47-year-old female with IBS-C to the emergency room for diffuse abdominal pain for 6 months. Patient has been complaining of a dull, sharp pain primarily on the right side, however it does radiate over to the left. No associated nausea or vomiting or diarrhea. Reports normally taking her PEG solution which alleviates her symptoms however recently has not been. She states that she has seen 2 GI doctors, one associated with [facility] the other [facility]. Relays a history of a battery of tests including stool samples, barium swallow, imaging and recent colonoscopy. Patient states that all of her test so far have come back negative. Also admits to multiple visits to urgent cares in the area for dysuria and generalized abdominal pain. Related Data Home Medications Medication Instructions Recorded Confirmed polyethylene glycol 3350 17 17 g PO DAILY 05/14/22 05/14/22 gram/dose oral powder (Laxative PEG 3350) Allergies Allergy/AdvReac Type Severity Reaction Status Date / Time latex Allergy Mild RASH-CONDOMS Verified 05/14/22 08:19 AND GLOVES clindamycin Allergy Hives Verified 05/14/22 08:19 gadobenic acid Allergy Hives Verified 05/26/22 18:23 [From contrast - MRI] iohexol Allergy Hives Verified 05/26/22 18:23 [From contrast - CT, X-RAY] lubiprostone [From Amitiza] Allergy Itching Verified 05/14/22 08:19 propoxyphene Allergy Other Verified 05/14/22 08:19 [From Darvocet-N 100] acetaminophen AdvReac Other Verified 05/14/22 08:19 amoxicillin AdvReac Chest Pain Verified 05/14/22 08:19 codeine AdvReac Nausea and Verified 05/14/22 08:19 Vomiting hydrocodone AdvReac Other Verified 05/14/22 08:19 ketorolac [From Toradol] AdvReac Palpitation Verified 05/14/22 08:19 s levofloxacin [From Levaquin] AdvReac Chest Pain Verified 05/14/22 08:19 nitrofurantoin AdvReac Chest Pain Verified 05/14/22 08:19 [From Macrobid] paroxetine [From Paxil] AdvReac Other Verified 05/14/22 08:19 Penicillins AdvReac Chest Pain Verified 05/14/22 08:19 Sulfa (Sulfonamide AdvReac Chest Pain Verified 05/14/22 08:19 Antibiotics) vancomycin AdvReac Chest Pain Verified 05/14/22 08:19 PROPOXYPHENE NAPSYLATE AdvReac Mild I PASS Uncoded 03/02/22 19:07 OUT Review of Systems Review of Systems: CONSTITUTIONAL: Denies fever, chills, or sweats. EYES: Denies visual changes, redness, or discharge. ENT: Denies rhinorrhea, congestion, sore throat, or otalgia. CARDIOVASCULAR: Denies chest pain, palpitations, or edema. RESPIRATORY: Denies cough or dyspnea. GASTROINTESTINAL: Reports abdominal pain GENITOURINARY: Denies dysuria or hematuria. SKIN: Denies rash or itching. MUSCULOSKELETAL: Denies back pain, joint pain, or myalgia. NEUROLOGIC: Denies headache, numbness, dizziness, or weakness. PSYCHIATRIC: Denies anxiety or depression. [facility] Past Medical History Medical History Anxiety Bronchitis Constipation Depression Genitourinary disorder Interstitial cystitis, urethral dilation GERD (gastroesophageal reflux disease) Interstitial cystitis Irritable bowel syndrome Mitral valve prolapse Right hand fracture Urinary tract infection Vaginal delivery Surgical History Surgical History H/O hemorrhoidectomy H/O inguinal hernia repair H/O sinus surgery H/O tubal ligation History of facial surgery Nasal reconstruction History of hysterectomy History of orthopedic surgery Right knee, trigger release finger left hand History of tonsillectomy History of urinary tract surgery Family History Family History Grandparent Diabetes mellitus, Onset Age: 200 Cerebrovascu
[2022-05-26 17:51] LABS: Appearance Urine Clear (Clear); Bilirubin Urine Negative (Negative); Blood Urine Negative (Negative); Color Urine Yellow (Yellow); Glucose Urine UA Negative (Negative); Ketones Urine Trace mg/dL (Negative); Leukocyte Esterase Ur Negative LEU/UL (Negative); Nitrate Urine Negative (Negative); Protein Urine Negative (Negative); Specific Grav Ur >= 1.030 (1.001-1.035); Urobilinogen Urine 0.2 mg/dL (<2.0)
[2022-05-26 18:04] LABS: CRP < 0.5 mg/dL (<1.0)
[2022-05-26 18:08] LABS: Add Urine Microscopic? YES; Mucus Urine Rare /lpf; Squamous Epithelial Cell Urine Occasional /hpf (Few); WBC Urine 0-3 /hpf
[2022-05-26 18:10] LABS: Alanine Aminotransferase 20 U/L (6-35); Alkaline Phosphatase 73 U/L (38-126); Anion Gap 7 mmol/L (8-16); Aspartate Amino Transferase 25 U/L (14-36); Bilirubin,Total 0.4 mg/dL (0.2-1.3); Blood Urea Nitrogen 18 mg/dL (7-17); Calcium 8.4 mg/dL (8.4-10.2); Carbon Dioxide 25 mmol/L (22-30); Chloride 106 mmol/L (98-107); Estimated CRCL calculation 72 ml/min; Estimated Glomerular Filt Rate > 60; Glucose 97 mg/dL (65-110); Lipase 250 U/L (23-300); Potassium 3.8 mmol/L (3.4-5.0); Sodium 138 mmol/L (137-145)
--- NOTE | 2022-05-26 18:20 | PC.NURSE ---
Pt refuses IV and IV fluids made aware.
[2022-05-26 18:55] LABS: Erythrocyte Sedimentation Rate 53 mm/hr (0-20)
--- NOTE | 2022-05-26 19:02 | PC.NURSE ---
Patient noted to be walking around the nurses station asking for an ETA on her CT. Patient notified that we would be unable to provide a precise time as it is unpredictable when a critical patient may present to the ED and take priority. It was communicated that all exams in the ED are to be done STAT and it shouldn't be too long of a wait. The patient said I'm not waiting for CT scan . I told the patient that her option would be to leave against medical advice. The patient stated bring me the paperwork . This RN did provide the paperwork as requested and the patient signed. EDP made aware. process specialist made aware.
--- NOTE | 2022-05-26 19:06 | PC.NURSE ---
Pt does not want to wait for CT scan, and charge nurse made aware. Pt sign out AMA.
== END 2022-05-26 19:09 | disposition left against medical advice (07) ==
PROVIDERS: Emergency Medicine; Emergency Provider Nurse Practitioner Family; PCP Internal Medicine
DX: R10.9 Unspecified abdominal pain (principal); I34.1 Nonrheumatic mitral (valve) prolapse; K58.1 Irritable bowel syndrome with constipation; K21.9 Gastro-esophageal reflux disease without esophagitis; Z87.440 Personal history of urinary (tract) infections; Z87.891 Personal history of nicotine dependence
CPT/HCPCS: 36415; 80053; 81001; 81025; 83690; 85025; 85652; 86140; 99283

== ENCOUNTER 2022-05-27 18:08 | Emergency (ER) | payer OTHER, SELFPAY ==
--- NOTE | 2022-05-27 18:15 | ED.FEMALEGU ---
HPI - Female Genitourinary General Stated complaint: uti followup Time Seen by Provider: 05/27/22 18:15 Related Data Home Medications Medication Instructions Recorded Confirmed polyethylene glycol 3350 17 17 g PO DAILY 05/14/22 05/27/22 gram/dose oral powder (Laxative PEG 3350) Allergies Allergy/AdvReac Type Severity Reaction Status Date / Time latex Allergy Mild RASH-CONDOMS Verified 05/27/22 14:42 AND GLOVES clindamycin Allergy Hives Verified 05/27/22 14:42 gadobenic acid Allergy Hives Verified 05/27/22 14:42 [From contrast - MRI] iohexol Allergy Hives Verified 05/27/22 14:42 [From contrast - CT, X-RAY] lubiprostone [From Amitiza] Allergy Itching Verified 05/27/22 14:42 propoxyphene Allergy Other Verified 05/27/22 14:42 [From Darvocet-N 100] acetaminophen AdvReac Other Verified 05/27/22 14:42 amoxicillin AdvReac Chest Pain Verified 05/27/22 14:42 codeine AdvReac Nausea and Verified 05/27/22 14:42 Vomiting hydrocodone AdvReac Other Verified 05/27/22 14:42 ketorolac [From Toradol] AdvReac Palpitation Verified 05/27/22 14:42 s levofloxacin [From Levaquin] AdvReac Chest Pain Verified 05/27/22 14:42 nitrofurantoin AdvReac Chest Pain Verified 05/27/22 14:42 [From Macrobid] paroxetine [From Paxil] AdvReac Other Verified 05/27/22 14:42 Penicillins AdvReac Chest Pain Verified 05/27/22 14:42 Sulfa (Sulfonamide AdvReac Chest Pain Verified 05/27/22 14:42 Antibiotics) vancomycin AdvReac Chest Pain Verified 05/27/22 14:42 PROPOXYPHENE NAPSYLATE AdvReac Mild I PASS Uncoded 05/27/22 14:42 OUT PMFSH Past Medical History Medical History Anxiety Bronchitis Constipation Depression Genitourinary disorder Interstitial cystitis, urethral dilation GERD (gastroesophageal reflux disease) Interstitial cystitis Irritable bowel syndrome Mitral valve prolapse Right hand fracture Urinary tract infection Vaginal delivery Surgical History Surgical History H/O hemorrhoidectomy H/O inguinal hernia repair H/O sinus surgery H/O tubal ligation History of facial surgery Nasal reconstruction History of hysterectomy History of orthopedic surgery Right knee, trigger release finger left hand History of tonsillectomy History of urinary tract surgery Family History Family History Grandparent Diabetes mellitus, Onset Age: 200 Cerebrovascular accident, Onset Age: 200 Father Family history of elevated blood lipids Carcinoma of colon Family history of coronary artery disease, Onset Age: 201 Patient's father is Grandparent Family history of malignant neoplasm Diabetes mellitus Cerebrovascular accident Hypertension Family history of cardiovascular disease Father Family history of congestive heart failure Patient's father is Hypertension Carcinoma of colon Family history of emphysema Family history of cardiovascular disease Sibling Hypertension Grandparent Diabetes mellitus Social History Social History Smoking packs per day: 1.5 Smoking cigarettes per day: 30.0 Years smoked: 13 Smoking pack-years: 19.50 Smoking status: Former smoker Tobacco type: cigarettes Second hand tobacco smoke exposure: No Smoking end date: 07/06/10 Alcohol intake: never Substance use: never Additional living arrangements comments: [facility] [phone] Gender identity (if verbalized by the patient): Female Sexual Orientation (if Verbalized by the Patient): Straight or Heterosexual Spiritual care concerns: No Discharge Plan Discharge Prescriptions: No Action sulfamethoxazole-trimethoprim [Bactrim DS] 800-160 mg tablet 1 tablet PO Q12H 7 Days Qty: 15 0RF Rx Instructions: F
[2022-05-27 18:18] VITALS: BP 132/97; PULSE 70; RESP 14; TEMP 36.7; O2SAT 100
== END 2022-05-27 18:18 | disposition left against medical advice (07) ==
LOC: EXPBETH 18:10
PROVIDERS: Emergency Provider Nurse Practitioner Family; PCP Internal Medicine
DX: Z53.21 Procedure and treatment not carried out due to patient leaving prior to being seen by health care provider (principal)
CPT/HCPCS: 99199

== ENCOUNTER 2022-06-04 14:48 | Emergency (ER) | payer OTHER, SELFPAY ==
[2022-06-04 15:08] VITALS: BP 107/65; PULSE 97; RESP 16; TEMP 36.4; O2SAT 99
--- NOTE | 2022-06-04 15:41 | ED.GENADULT ---
HPI - General Adult General Chief complaint: Urogenital-Female Stated complaint: urine check Source: patient Mode of arrival: ambulatory Limitations: no limitations History of Present Illness HPI narrative: Patient presents to have her urine rechecked after recently being treated for a UTI. She was seen here on 05/24/2022 for similar chief complaint. Nitrite and leukocyte negative at that time. Urine grew out e coli and patient was contacted. She states she was given a script for bactrim, which she completed yesterday. She denies any hematuria, dysuria, urinary frequency or other urinary symptoms at the present time. She denies any fever, chills, nausea, vomiting. She has some right-sided abdominal pain which is not new. She has a scheduled colonoscopy in the next week at [facility] per her reports. She has underlying interstitial cystitis. No additional complaints or concerns. Related Data Allergies Allergy/AdvReac Type Severity Reaction Status Date / Time latex Allergy Mild RASH-CONDOMS Verified 05/30/22 13:10 AND GLOVES clindamycin Allergy Hives Verified 05/30/22 13:10 gadobenic acid Allergy Hives Verified 05/30/22 13:10 [From contrast - MRI] iohexol Allergy Hives Verified 05/30/22 13:10 [From contrast - CT, X-RAY] lubiprostone [From Amitiza] Allergy Itching Verified 05/30/22 13:10 propoxyphene Allergy Other Verified 05/30/22 13:10 [From Darvocet-N 100] acetaminophen AdvReac Other Verified 05/30/22 13:10 amoxicillin AdvReac Chest Pain Verified 05/30/22 13:10 codeine AdvReac Nausea and Verified 05/30/22 13:10 Vomiting hydrocodone AdvReac Other Verified 05/30/22 13:10 ketorolac [From Toradol] AdvReac Palpitation Verified 05/30/22 13:10 s levofloxacin [From Levaquin] AdvReac Chest Pain Verified 05/30/22 13:10 nitrofurantoin AdvReac Chest Pain Verified 05/30/22 13:10 [From Macrobid] paroxetine [From Paxil] AdvReac Other Verified 05/30/22 13:10 Penicillins AdvReac Chest Pain Verified 05/30/22 13:10 Sulfa (Sulfonamide AdvReac Chest Pain Verified 05/30/22 13:10 Antibiotics) vancomycin AdvReac Chest Pain Verified 05/30/22 13:10 PROPOXYPHENE NAPSYLATE AdvReac Mild I PASS Uncoded 05/30/22 13:10 OUT Review of Systems Review of Systems: CONSTITUTIONAL: Denies fever, chills, or sweats. EYES: Denies visual changes, redness, or discharge. ENT: Denies rhinorrhea, congestion, sore throat, or otalgia. CARDIOVASCULAR: Denies chest pain, palpitations, or edema. RESPIRATORY: Denies cough or dyspnea. GASTROINTESTINAL: Reports chronic right sided abdominal discomfort, unchanged. Denies nausea, vomiting, or diarrhea. GENITOURINARY: Denies dysuria or hematuria. SKIN: Denies rash or itching. MUSCULOSKELETAL: Denies back pain, joint pain, or myalgia. NEUROLOGIC: Denies headache, numbness, dizziness, or weakness. PSYCHIATRIC: Denies anxiety or depression. [facility] Past Medical History Medical History Anxiety Bronchitis Constipation Depression Family history of malignant neoplasm of colon in father Genitourinary disorder Interstitial cystitis, urethral dilation GERD (gastroesophageal reflux disease) Interstitial cystitis Irritable bowel syndrome Irritable bowel syndrome with constipation Mitral valve prolapse Right hand fracture Urinary tract infection Vaginal delivery Surgical History Surgical History H/O hemorrhoidectomy H/O inguinal hernia repair H/O sinus surgery H/O tubal ligation History of facial surgery Nasal reconstruction History of hysterectomy History of orthopedic surgery Right knee, trigger release finger left hand History of tonsillectomy History of urinary tract surgery Family History Family History Grandparent Diabetes mellitus, Onset Age: 200 Cerebrovascular accident
== END 2022-06-04 15:50 | disposition home or self-care (01) ==
PROVIDERS: Emergency Provider Nurse Practitioner
DX: N30.10 Interstitial cystitis (chronic) without hematuria (principal); Z87.891 Personal history of nicotine dependence; K21.9 Gastro-esophageal reflux disease without esophagitis; I34.1 Nonrheumatic mitral (valve) prolapse
CPT/HCPCS: 81003; 87086; 99213; G0463

== ENCOUNTER 2022-06-08 08:52 | Emergency (ER) | payer OTHER, SELFPAY ==
[2022-06-08 09:11] VITALS: BP 136/90; PULSE 68; RESP 16; TEMP 36.4; O2SAT 100
--- NOTE | 2022-06-08 10:08 | ED.GENADULT ---
HPI - General Adult General Chief complaint: Urogenital-Female Stated complaint: poss uti Source: patient Mode of arrival: ambulatory Limitations: no limitations History of Present Illness HPI narrative: Patient presents for evaluation of bilateral upper quadrant pressure. Patient states that symptoms been present for the last few days. Patient shoots up through lateral ribs bilaterally. She states symptoms are rated 6/10. No nausea, vomiting, change in bowel pattern. Last bowel movement yesterday, solid, without the presence of blood or mucous in the stool. She has IC and IBS with constipation. She has a colonoscopy scheduled for three days from now. She has EGD scheduled for June of this year. She has some chronic urinary frequency unchanged. She believes her current symptoms are related to acid reflux, with which she has had problems in the past. No additional complaints or concerns. Related Data Allergies Allergy/AdvReac Type Severity Reaction Status Date / Time latex Allergy Mild RASH-CONDOMS Verified 06/08/22 09:18 AND GLOVES clindamycin Allergy Hives Verified 06/08/22 09:18 gadobenic acid Allergy Hives Verified 06/08/22 09:18 [From contrast - MRI] iohexol Allergy Hives Verified 06/08/22 09:18 [From contrast - CT, X-RAY] lubiprostone [From Amitiza] Allergy Itching Verified 06/08/22 09:18 propoxyphene Allergy Other Verified 06/08/22 09:18 [From Darvocet-N 100] acetaminophen AdvReac Other Verified 06/08/22 09:18 amoxicillin AdvReac Chest Pain Verified 06/08/22 09:18 codeine AdvReac Nausea and Verified 06/08/22 09:18 Vomiting hydrocodone AdvReac Other Verified 06/08/22 09:18 ketorolac [From Toradol] AdvReac Palpitation Verified 06/08/22 09:18 s levofloxacin [From Levaquin] AdvReac Chest Pain Verified 06/08/22 09:18 nitrofurantoin AdvReac Chest Pain Verified 06/08/22 09:18 [From Macrobid] paroxetine [From Paxil] AdvReac Other Verified 06/08/22 09:18 Penicillins AdvReac Chest Pain Verified 06/08/22 09:18 Sulfa (Sulfonamide AdvReac Chest Pain Verified 06/08/22 09:18 Antibiotics) vancomycin AdvReac Chest Pain Verified 06/08/22 09:18 PROPOXYPHENE NAPSYLATE AdvReac Mild I PASS Uncoded 06/08/22 09:18 OUT Review of Systems Review of Systems: CONSTITUTIONAL: Denies fever, chills, or sweats. EYES: Denies visual changes, redness, or discharge. ENT: Denies rhinorrhea, congestion, sore throat, or otalgia. CARDIOVASCULAR: Denies chest pain, palpitations, or edema. RESPIRATORY: Denies cough or dyspnea. GASTROINTESTINAL: Reports pressure in her abdomen bilaterally. Denies nausea, vomiting, or diarrhea. GENITOURINARY:Reports chronic urinary frequency, unchanged. Denies dysuria or hematuria. SKIN: Denies rash or itching. MUSCULOSKELETAL: Denies back pain, joint pain, or myalgia. NEUROLOGIC: Denies headache, numbness, dizziness, or weakness. PSYCHIATRIC: Denies anxiety or depression. [facility] Past Medical History Medical History Anxiety Bronchitis Constipation Depression Family history of malignant neoplasm of colon in father Genitourinary disorder Interstitial cystitis, urethral dilation GERD (gastroesophageal reflux disease) Interstitial cystitis Irritable bowel syndrome Irritable bowel syndrome with constipation Mitral valve prolapse Right hand fracture Urinary tract infection Vaginal delivery Surgical History Surgical History H/O hemorrhoidectomy H/O inguinal hernia repair H/O sinus surgery H/O tubal ligation History of facial surgery Nasal reconstruction History of hysterectomy History of orthopedic surgery Right knee, trigger release finger left hand History of tonsillectomy History of urinary tract surgery Family History Family History Grandparent Diabetes anupamit
== END 2022-06-08 10:10 | disposition home or self-care (01) ==
PROVIDERS: Emergency Provider Nurse Practitioner
DX: R10.11 Right upper quadrant pain (principal); R10.12 Left upper quadrant pain; K21.9 Gastro-esophageal reflux disease without esophagitis; Z87.891 Personal history of nicotine dependence; I34.1 Nonrheumatic mitral (valve) prolapse
CPT/HCPCS: 81003; 87086; 99213; G0463

== ENCOUNTER 2022-06-11 00:07 | Day surgery (SDC) | payer OTHER, SELFPAY ==
[2022-05-27 14:43] VITALS: BMI 29.3
[2022-06-11 08:47] VITALS: BP 107/82; PULSE 66; RESP 18; TEMP 36.4; O2SAT 99; BMI 29.2
--- NOTE | 2022-06-11 08:58 | WPDANESEPPF ---
Anes - Initial Pre Proc Eval Procedure: Operation Date: 06/11/22 10:00 Proposed Procedures p Colonoscopy - Lux Briscoe MD Date/Time: 06/11/22 08:58 Surgeon: Lux Briscoe MD Pre Op Diagnosis: IBS, family hx of colon cancer Patient Data Age: 47 Gender: F Height: 1.65 m Weight: 79.8 kg Last Vital Signs Temp 36.4 C L 06/11/22 08:47 Pulse 66 06/11/22 08:47 Resp 18 06/11/22 08:47 BP 107/82 06/11/22 08:47 Pulse Ox 99 06/11/22 08:47 O2 Del Method Room Air 06/11/22 08:47 Allergies Allergy/AdvReac Type Severity Reaction Status Date / Time latex Allergy Mild RASH-CONDOMS Verified 06/11/22 08:43 AND GLOVES clindamycin Allergy Hives Verified 06/11/22 08:43 gadobenic acid Allergy Hives Verified 06/11/22 08:43 [From contrast - MRI] iohexol Allergy Hives Verified 06/11/22 08:43 [From contrast - CT, X-RAY] lubiprostone [From Amitiza] Allergy Itching Verified 06/11/22 08:43 propoxyphene Allergy Other Verified 06/11/22 08:43 [From Darvocet-N 100] acetaminophen AdvReac Other Verified 06/11/22 08:43 amoxicillin AdvReac Chest Pain Verified 06/11/22 08:43 codeine AdvReac Nausea and Verified 06/11/22 08:43 Vomiting hydrocodone AdvReac Other Verified 06/11/22 08:43 ketorolac [From Toradol] AdvReac Palpitation Verified 06/11/22 08:43 s levofloxacin [From Levaquin] AdvReac Chest Pain Verified 06/11/22 08:43 nitrofurantoin AdvReac Chest Pain Verified 06/11/22 08:43 [From Macrobid] paroxetine [From Paxil] AdvReac Other Verified 06/11/22 08:43 Penicillins AdvReac Chest Pain Verified 06/11/22 08:43 Sulfa (Sulfonamide AdvReac Chest Pain Verified 06/11/22 08:43 Antibiotics) vancomycin AdvReac Chest Pain Verified 06/11/22 08:43 PROPOXYPHENE NAPSYLATE AdvReac Mild I PASS Uncoded 06/11/22 08:43 OUT Home Medications Medication Instructions Recorded Confirmed Type pantoprazole 40 mg tablet,delayed 40 mg PO QAM #14 tabs 06/08/22 06/11/22 Rx release (Protonix) Patient hx anesthesia problems: none Family hx anesthesia problems: none Results Review: All pre-operative results and documents have been reviewed as part of the pre-operative evaluation. [facility] Past Medical History Medical History Anxiety Bronchitis Constipation Depression Family history of malignant neoplasm of colon in father Genitourinary disorder Interstitial cystitis, urethral dilation GERD (gastroesophageal reflux disease) Interstitial cystitis Irritable bowel syndrome Irritable bowel syndrome with constipation Mitral valve prolapse Right hand fracture Urinary tract infection Vaginal delivery Surgical History Surgical History H/O hemorrhoidectomy H/O inguinal hernia repair H/O sinus surgery H/O tubal ligation History of facial surgery Nasal reconstruction History of hysterectomy History of orthopedic surgery Right knee, trigger release finger left hand History of tonsillectomy History of urinary tract surgery Family History Family History Grandparent Diabetes mellitus, Onset Age: 200 Cerebrovascular accident, Onset Age: 200 Father Family history of elevated blood lipids Carcinoma of colon Family history of coronary artery disease, Onset Age: 201 Patient's father is Grandparent Family history of malignant neoplasm Diabetes mellitus Cerebrovascular accident Hypertension Family history of cardiovascular disease Father Family history of congestive heart failure Patient's father is Hypertension Carcinoma of colon Family history of emphysema Family history of cardiovascular disease Sibling Hypertension Grandparent Diabetes mellitus Social History Social History (Reviewed 06/11/22 @ 08:58 by Chente Sarmiento
[2022-06-11] MEDS: LACTATED RINGERS 1,000 ML 150 ML IV CONT (09:19)
--- NOTE | 2022-06-11 09:30 | WPDHPUPDATE1 ---
History and Physical Update Update Date/Time: 06/11/22 09:30 History and Physical has been reviewed, including an updated exam of the patient. There are NO changes in the patient's condition. Risks, benefits, and alternatives have been discussed and questions answered. Patient agrees to proceed with procedure.
[2022-06-11 09:48] VITALS: BP 103/65; PULSE 54; RESP 18; O2SAT 98
[2022-06-11 09:58] VITALS: BP 91/57; PULSE 62; RESP 20; O2SAT 99
[2022-06-11 10:08] VITALS: BP 97/60; PULSE 60; RESP 15; O2SAT 100
== END 2022-06-11 10:12 | disposition home or self-care (01) ==
PROVIDERS: Visit Provider Internal Medicine Gastroenterology
PROC: 0DJD8ZZ Inspection of Lower Intestinal Tract, Via Natural or Artificial Opening Endoscopic (ICD-10-PCS; CPT 45378; principal; 2022-06-11 10:00)
DX: Z12.11 Encounter for screening for malignant neoplasm of colon (principal); R10.11 Right upper quadrant pain; K64.8 Other hemorrhoids; K64.4 Residual hemorrhoidal skin tags; K58.9 Irritable bowel syndrome, unspecified; F41.9 Anxiety disorder, unspecified; F32.A Depression, unspecified; K58.1 Irritable bowel syndrome with constipation; I34.1 Nonrheumatic mitral (valve) prolapse; K21.9 Gastro-esophageal reflux disease without esophagitis; Z87.891 Personal history of nicotine dependence
CPT/HCPCS: 45378; J2704; J7120

== ENCOUNTER 2022-06-13 17:30 | Emergency (ER) | payer OTHER, SELFPAY ==
[2022-06-13 17:35] VITALS: BP 134/90; PULSE 89; RESP 16; TEMP 36.1; O2SAT 100
--- NOTE | 2022-06-13 17:43 | ED.FEMALEGU ---
HPI - Female Genitourinary General Stated complaint: Urinary Problem Time Seen by Provider: 06/13/22 17:43 Source: patient Mode of arrival: ambulatory Limitations: no limitations History of Present Illness HPI Narrative: Ms. Jauregui is a 47-year-old female patient presenting to the clinic today with complaints of upper abdominal bloating. She reports she is concerned about having a urinary tract infection. States that she just had a colonoscopy completed 2 days ago and has been passing gas. Last bowel movement was this morning and was loose. Denies any blood in her stool. She denies any fever or chills. She states that she just has a lot of bloating in her abdomen but denies any pain. Related Data Allergies Allergy/AdvReac Type Severity Reaction Status Date / Time latex Allergy Mild RASH-CONDOMS Verified 06/11/22 08:43 AND GLOVES clindamycin Allergy Hives Verified 06/11/22 08:43 gadobenic acid Allergy Hives Verified 06/11/22 08:43 [From contrast - MRI] iohexol Allergy Hives Verified 06/11/22 08:43 [From contrast - CT, X-RAY] lubiprostone [From Amitiza] Allergy Itching Verified 06/11/22 08:43 propoxyphene Allergy Other Verified 06/11/22 08:43 [From Darvocet-N 100] acetaminophen AdvReac Other Verified 06/11/22 08:43 amoxicillin AdvReac Chest Pain Verified 06/11/22 08:43 codeine AdvReac Nausea and Verified 06/11/22 08:43 Vomiting hydrocodone AdvReac Other Verified 06/11/22 08:43 ketorolac [From Toradol] AdvReac Palpitation Verified 06/11/22 08:43 s levofloxacin [From Levaquin] AdvReac Chest Pain Verified 06/11/22 08:43 nitrofurantoin AdvReac Chest Pain Verified 06/11/22 08:43 [From Macrobid] paroxetine [From Paxil] AdvReac Other Verified 06/11/22 08:43 Penicillins AdvReac Chest Pain Verified 06/11/22 08:43 Sulfa (Sulfonamide AdvReac Chest Pain Verified 06/11/22 08:43 Antibiotics) vancomycin AdvReac Chest Pain Verified 06/11/22 08:43 PROPOXYPHENE NAPSYLATE AdvReac Mild I PASS Uncoded 06/11/22 08:43 OUT Review of Systems Review of Systems: Pertinent positives per HPI. Patient denies any fever, chills, rash, headache, visual changes, dizziness, cough, runny nose, sore throat, shortness of breath, chest pain, palpitations, nausea, vomiting, diarrhea, constipation, abdominal pain. [facility] Past Medical History Medical History Anxiety Bronchitis Constipation Depression Family history of malignant neoplasm of colon in father Genitourinary disorder Interstitial cystitis, urethral dilation GERD (gastroesophageal reflux disease) Interstitial cystitis Irritable bowel syndrome Irritable bowel syndrome with constipation Mitral valve prolapse Right hand fracture Urinary tract infection Vaginal delivery Surgical History Surgical History H/O hemorrhoidectomy H/O inguinal hernia repair H/O sinus surgery H/O tubal ligation History of facial surgery Nasal reconstruction History of hysterectomy History of orthopedic surgery Right knee, trigger release finger left hand History of tonsillectomy History of urinary tract surgery Family History Family History Grandparent Diabetes mellitus, Onset Age: 200 Cerebrovascular accident, Onset Age: 200 Father Family history of elevated blood lipids Carcinoma of colon Family history of coronary artery disease, Onset Age: 201 Patient's father is Grandparent Family history of malignant neoplasm Diabetes mellitus Cerebrovascular accident Hypertension Family history of cardiovascular disease Father Family history of congestive heart failure Patient's father is Hypertension Carcinoma of colon Family history of emphysema Family history of cardiovascular disease Sibling Hypertension Grandparent
== END 2022-06-13 18:12 | disposition home or self-care (01) ==
PROVIDERS: Emergency Provider Nurse Practitioner Family
DX: R14.0 Abdominal distension (gaseous) (principal); Z93.3 Colostomy status; K21.9 Gastro-esophageal reflux disease without esophagitis; I34.1 Nonrheumatic mitral (valve) prolapse; F41.9 Anxiety disorder, unspecified
CPT/HCPCS: 81003; 87086; 99213; G0463

== ENCOUNTER 2022-06-30 11:09 | Emergency (ER) | payer OTHER, SELFPAY ==
[2022-06-30 11:12] VITALS: BP 121/84; PULSE 70; RESP 20; TEMP 36.6; O2SAT 99
--- NOTE | 2022-06-30 11:42 | ED.GENADULT ---
HPI - General Adult General Chief complaint: Urogenital-Female Stated complaint: Urinary Problem Source: patient Mode of arrival: ambulatory Limitations: no limitations History of Present Illness HPI narrative: Patient presents requesting that we check her urine to see if she is dehydrated. She states she was seen in the emergency department at [facility] on 06/29/2022 for abdominal pain. She indicates she had ketones in her urine was told that she was dehydrated. She states she had a CT scan that was normal. She has an EGD scheduled for 07/05/2022 and also has an upcoming appointment with Dr. Montanez, surgeon at [place] to check (her) abdominal mesh . She reports some mild intermittent epigastric pain. She states it may be due to constipation. Normal bowel pattern is once a week. Last bowel movement was about three days ago. She reports urinary frequency, which is chronic for her. She attributes this to interstitial cystitis. She denies other urinary symptoms. No fever, chills, nausea, vomiting. No additional complaints or concerns. Related Data Home Medications Medication Instructions Recorded Confirmed [id number] 100 gram-sod sulf 7.5 See Rx Instructions PO PER PKG DIR 06/25/22 06/30/22 [id number]-C oral pwdr pack Allergies Allergy/AdvReac Type Severity Reaction Status Date / Time latex Allergy Mild RASH-CONDOMS Verified 06/30/22 11:31 AND GLOVES clindamycin Allergy Hives Verified 06/30/22 11:31 gadobenic acid Allergy Hives Verified 06/30/22 11:31 [From contrast - MRI] iohexol Allergy Hives Verified 06/30/22 11:31 [From contrast - CT, X-RAY] lubiprostone [From Amitiza] Allergy Itching Verified 06/30/22 11:31 propoxyphene Allergy Other Verified 06/30/22 11:31 [From Darvocet-N 100] acetaminophen AdvReac Other Verified 06/30/22 11:31 amoxicillin AdvReac Chest Pain Verified 06/30/22 11:31 codeine AdvReac Nausea and Verified 06/30/22 11:31 Vomiting hydrocodone AdvReac Other Verified 06/30/22 11:31 ketorolac [From Toradol] AdvReac Palpitation Verified 06/28/22 12:32 s levofloxacin [From Levaquin] AdvReac Chest Pain Verified 06/28/22 12:32 nitrofurantoin AdvReac Chest Pain Verified 06/28/22 12:32 [From Macrobid] paroxetine [From Paxil] AdvReac Other Verified 06/28/22 12:32 Penicillins AdvReac Chest Pain Verified 06/28/22 12:32 Sulfa (Sulfonamide AdvReac Chest Pain Verified 06/28/22 12:32 Antibiotics) vancomycin AdvReac Chest Pain Verified 06/28/22 12:32 PROPOXYPHENE NAPSYLATE AdvReac Mild I PASS Uncoded 06/28/22 10:56 OUT Review of Systems Review of Systems: CONSTITUTIONAL: Denies fever, chills, or sweats. EYES: Denies visual changes, redness, or discharge. ENT: Denies rhinorrhea, congestion, sore throat, or otalgia. CARDIOVASCULAR: Denies chest pain, palpitations, or edema. RESPIRATORY: Denies cough or dyspnea. GASTROINTESTINAL: Reports epigastric pain. Denies nausea, vomiting, or diarrhea. GENITOURINARY: Reports chronic urinary frequency, which is unchanged. Denies dysuria or hematuria. SKIN: Denies rash or itching. MUSCULOSKELETAL: Denies back pain, joint pain, or myalgia. NEUROLOGIC: Denies headache, numbness, dizziness, or weakness. PSYCHIATRIC: Denies anxiety or depression. [facility] Past Medical History Medical History Anxiety Bronchitis Constipation Depression Family history of malignant neoplasm of colon in father Genitourinary disorder Interstitial cystitis, urethral dilation GERD (gastroesophageal reflux disease) Interstitial cystitis Irritable bowel syndrome Irritable bowel syndrome with constipation Mitral valve prolapse Right hand fracture Urinary tract infection Vaginal delivery Surgical History Surgical History H/O hemorrhoidectomy H/O inguinal hernia repair H/O sinus surgery H/O tubal liga
== END 2022-06-30 11:48 | disposition home or self-care (01) ==
PROVIDERS: Emergency Provider Nurse Practitioner; PCP Family Medicine
DX: N30.10 Interstitial cystitis (chronic) without hematuria (principal); Z87.891 Personal history of nicotine dependence; K21.9 Gastro-esophageal reflux disease without esophagitis; I34.1 Nonrheumatic mitral (valve) prolapse
CPT/HCPCS: 81003; 99212; G0463

== ENCOUNTER 2022-07-03 08:27 | Emergency (ER) | payer OTHER, SELFPAY ==
[2022-07-03 08:38] VITALS: BP 116/79; PULSE 70; RESP 18; TEMP 36.6; O2SAT 100
[2022-07-03 08:40] VITALS: BP 116/79; PULSE 70; RESP 18; TEMP 36.6; O2SAT 100
--- NOTE | 2022-07-03 08:57 | ED.GENADULT ---
HPI - General Adult General Chief complaint: Unspecified Stated complaint: poss uti Time Seen by Provider: 07/03/22 08:57 Source: patient and RN notes reviewed Mode of arrival: ambulatory Limitations: no limitations History of Present Illness HPI narrative: 47-year-old female presented for concerns of constipation or dehydration after starting a different IBS medication. She endorses feeling constipated. LBM today. States she has an appointment for an GI specialist in 2 days. She denies abdominal pain, nausea, vomiting, diarrhea, hematochezia, melena, dysuria, vaginal discharge, flank pain, fevers or chills. Related Data Home Medications Medication Instructions Recorded Confirmed [id number] 100 gram-sod sulf 7.5 See Rx Instructions PO PER PKG DIR 06/25/22 06/30/22 [id number]-ascorbate-C oral pwdr pack tenapanor 50 mg tablet (Ibsrela) 50 mg PO BID 07/03/22 07/03/22 Allergies Allergy/AdvReac Type Severity Reaction Status Date / Time latex Allergy Mild RASH-CONDOMS Verified 07/03/22 08:40 AND GLOVES clindamycin Allergy Hives Verified 07/03/22 08:40 gadobenic acid Allergy Hives Verified 07/03/22 08:40 [From contrast - MRI] iohexol Allergy Hives Verified 07/03/22 08:40 [From contrast - CT, X-RAY] lubiprostone [From Amitiza] Allergy Itching Verified 07/03/22 08:40 propoxyphene Allergy Other Verified 07/03/22 08:40 [From Darvocet-N 100] acetaminophen AdvReac Other Verified 07/03/22 08:40 amoxicillin AdvReac Chest Pain Verified 07/03/22 08:40 codeine AdvReac Nausea and Verified 07/03/22 08:40 Vomiting hydrocodone AdvReac Other Verified 07/03/22 08:40 ketorolac [From Toradol] AdvReac Palpitation Verified 07/03/22 08:40 s levofloxacin [From Levaquin] AdvReac Chest Pain Verified 07/03/22 08:40 nitrofurantoin AdvReac Chest Pain Verified 07/03/22 08:40 [From Macrobid] paroxetine [From Paxil] AdvReac Other Verified 07/03/22 08:40 Penicillins AdvReac Chest Pain Verified 07/03/22 08:40 Sulfa (Sulfonamide AdvReac Chest Pain Verified 07/03/22 08:40 Antibiotics) vancomycin AdvReac Chest Pain Verified 07/03/22 08:40 PROPOXYPHENE NAPSYLATE AdvReac Mild I PASS Uncoded 06/28/22 10:56 OUT Review of Systems Review of Systems: CONSTITUTIONAL: Denies body aches, fever, chills, or sweats. CARDIOVASCULAR: Denies chest pain, palpitations, or edema. RESPIRATORY: Denies cough or dyspnea. GASTROINTESTINAL: Denies abdominal pain, nausea, vomiting, or diarrhea. GENITOURINARY: denies dysuria, frequency, urgency, hematuria, flank pain SKIN: Denies rash, itching, or wounds. MUSCULOSKELETAL: Denies back pain or myalgia. [facility] Past Medical History Medical History Anxiety Bronchitis Constipation Depression Family history of malignant neoplasm of colon in father Genitourinary disorder Interstitial cystitis, urethral dilation GERD (gastroesophageal reflux disease) Interstitial cystitis Irritable bowel syndrome Irritable bowel syndrome with constipation Mitral valve prolapse Right hand fracture Urinary tract infection Vaginal delivery Surgical History Surgical History H/O hemorrhoidectomy H/O inguinal hernia repair H/O sinus surgery H/O tubal ligation History of facial surgery Nasal reconstruction History of hysterectomy History of orthopedic surgery Right knee, trigger release finger left hand History of tonsillectomy History of urinary tract surgery Family History Family History Grandparent Diabetes mellitus, Onset Age: 200 Cerebrovascular accident, Onset Age: 200 Father Family history of elevated blood lipids Carcinoma of colon Family history of coronary artery disease, Onset Age: 201 Patient's father is Grandparent Family history of malignant neoplasm
== END 2022-07-03 09:05 | disposition home or self-care (01) ==
PROVIDERS: Emergency Provider Nurse Practitioner Family; PCP Family Medicine
DX: K59.00 Constipation, unspecified (principal); K21.9 Gastro-esophageal reflux disease without esophagitis; I34.1 Nonrheumatic mitral (valve) prolapse; Z87.891 Personal history of nicotine dependence
CPT/HCPCS: 81003; 87086; 99213; G0463

== ENCOUNTER 2022-07-18 12:08 | Emergency (ER) | payer OTHER, SELFPAY ==
--- NOTE | 2022-07-18 12:10 | ED.FEMALEGU ---
HPI - Female Genitourinary General Chief complaint: Urogenital-Female Stated complaint: Poss uti Time Seen by Provider: 07/18/22 12:10 Source: patient and RN notes reviewed History of Present Illness HPI Narrative: Patient is a 47-year-old female who presents the urgent care with complaints of a possible UTI. Patient has chronic history of UTIs. States that the burning with urination started yesterday but otherwise denies of any other symptoms. Denies a fever, nausea, vomiting. Patient states she has been having a lot of chronic abdominal pain and has been to the ER 17 times. Patient states that they found an enlarged ovary and she followed up with her FLOOR REPRESENTATIVE for possible biopsy. Patient is also seen a client service executive in [place] to try to figure out the upper abdominal pains. No acute complaints. No acute distress noted. Patient read the plan of care. Some parts of this dictation were generated by voice recognition software and may contain typographical and/or grammatical inaccuracies. Related Data Home Medications Medication Instructions Recorded Confirmed No Home Medications 07/18/22 07/18/22 Allergies Allergy/AdvReac Type Severity Reaction Status Date / Time latex Allergy Mild RASH-CONDOMS Verified 07/18/22 12:16 AND GLOVES clindamycin Allergy Hives Verified 07/18/22 12:16 gadobenic acid Allergy Hives Verified 07/18/22 12:16 [From contrast - MRI] iohexol Allergy Hives Verified 07/18/22 12:16 [From contrast - CT, X-RAY] lubiprostone [From Amitiza] Allergy Itching Verified 07/18/22 12:16 propoxyphene Allergy Other Verified 07/18/22 12:16 [From Darvocet-N 100] acetaminophen AdvReac Other Verified 07/18/22 12:16 amoxicillin AdvReac Chest Pain Verified 07/18/22 12:16 codeine AdvReac Nausea and Verified 07/18/22 12:16 Vomiting hydrocodone AdvReac Other Verified 07/18/22 12:16 ketorolac [From Toradol] AdvReac Palpitation Verified 07/18/22 12:16 s levofloxacin [From Levaquin] AdvReac Chest Pain Verified 07/18/22 12:16 nitrofurantoin AdvReac Chest Pain Verified 07/18/22 12:16 [From Macrobid] paroxetine [From Paxil] AdvReac Other Verified 07/18/22 12:16 Penicillins AdvReac Chest Pain Verified 07/18/22 12:16 Sulfa (Sulfonamide AdvReac Chest Pain Verified 07/18/22 12:16 Antibiotics) vancomycin AdvReac Chest Pain Verified 07/18/22 12:16 PROPOXYPHENE NAPSYLATE AdvReac Mild I PASS Uncoded 07/18/22 12:16 OUT Review of Systems Review of Systems: CONSTITUTIONAL: Denies fever, chills, or sweats. EYES: Denies visual changes, redness, or discharge. ENT: Denies rhinorrhea, congestion, sore throat, or otalgia. CARDIOVASCULAR: Denies chest pain, palpitations, or edema. RESPIRATORY: Denies cough or dyspnea. GASTROINTESTINAL: Denies abdominal pain, nausea, vomiting, or diarrhea. GENITOURINARY: Reports of dysuria SKIN: Denies rash or itching. MUSCULOSKELETAL: Denies back pain, joint pain, or myalgia. NEUROLOGIC: Denies headache, numbness, or weakness. All other systems reviewed are negative, except as documented in HPI. [facility] Past Medical History Medical History (Updated 07/18/22 @ 12:47 by SAMMY Cooney) Anxiety Bronchitis Constipation Depression Family history of malignant neoplasm of colon in father Genitourinary disorder Interstitial cystitis, urethral dilation GERD (gastroesophageal reflux disease) Interstitial cystitis Irritable bowel syndrome Irritable bowel syndrome with constipation Mitral valve prolapse Right hand fracture Urinary tract infection Vaginal delivery Surgical History Surgical History (Updated 07/04/22 @ 11:13 by Geneva Summers CMA) H/O hemorrhoidectomy H/O sinus surgery H/O tubal ligation H/O umbilical hernia repair History of facial surgery Nasal reconstruction History of hysterectomy History of orthopedic surgery Right knee, trigger release finger left hand History of tonsillectomy History of urinary tract surg
[2022-07-18 12:12] VITALS: BP 121/83; PULSE 81; RESP 18; TEMP 36.6; O2SAT 100
[2022-07-18 12:16] VITALS: BP 121/83; PULSE 81; RESP 18; TEMP 36.6; O2SAT 100
== END 2022-07-18 12:50 | disposition home or self-care (01) ==
PROVIDERS: Emergency Provider Nurse Practitioner Family; PCP Family Medicine
DX: N30.10 Interstitial cystitis (chronic) without hematuria (principal); Z87.891 Personal history of nicotine dependence; K21.9 Gastro-esophageal reflux disease without esophagitis; I34.1 Nonrheumatic mitral (valve) prolapse
CPT/HCPCS: 81003; 87086; 87088; 99213; G0463

== ENCOUNTER 2022-07-21 16:51 | Emergency (ER) | payer OTHER, SELFPAY ==
[2022-07-21 16:57] VITALS: BP 107/73; PULSE 80; RESP 20; TEMP 36.7; O2SAT 100
--- NOTE | 2022-07-21 17:01 | ED.FEMALEGU ---
HPI - Female Genitourinary General Chief complaint: Urogenital-Female Stated complaint: urine check Time Seen by Provider: 07/21/22 16:53 Source: patient Mode of arrival: ambulatory Limitations: no limitations History of Present Illness HPI Narrative: Ms. Jauregui is a 47-year-old female patient presenting to the clinic today with complaints of possible UTI. She would like to have her urine checked today for a urinary tract infection. She was just seen here in the clinic 3 days ago for the same concern and her culture came back negative for any bacteria at that time. States that she has been taking some medication to past bowels and has been having some diarrhea and wants to be sure that she does not have a urinary tract infection Related Data Home Medications Medication Instructions Recorded Confirmed No Home Medications 07/18/22 07/18/22 Allergies Allergy/AdvReac Type Severity Reaction Status Date / Time latex Allergy Mild RASH-CONDOMS Verified 07/21/22 17:05 AND GLOVES clindamycin Allergy Hives Verified 07/21/22 17:05 gadobenic acid Allergy Hives Verified 07/21/22 17:05 [From contrast - MRI] iohexol Allergy Hives Verified 07/21/22 17:05 [From contrast - CT, X-RAY] lubiprostone [From Amitiza] Allergy Itching Verified 07/21/22 17:05 propoxyphene Allergy Other Verified 07/21/22 17:05 [From Darvocet-N 100] acetaminophen AdvReac Other Verified 07/21/22 17:05 amoxicillin AdvReac Chest Pain Verified 07/21/22 17:05 codeine AdvReac Nausea and Verified 07/21/22 17:05 Vomiting hydrocodone AdvReac Other Verified 07/21/22 17:05 ketorolac [From Toradol] AdvReac Palpitation Verified 07/21/22 17:06 s levofloxacin [From Levaquin] AdvReac Chest Pain Verified 07/21/22 17:06 nitrofurantoin AdvReac Chest Pain Verified 07/21/22 17:06 [From Macrobid] paroxetine [From Paxil] AdvReac Other Verified 07/21/22 17:06 Penicillins AdvReac Chest Pain Verified 07/21/22 17:06 Sulfa (Sulfonamide AdvReac Chest Pain Verified 07/21/22 17:06 Antibiotics) vancomycin AdvReac Chest Pain Verified 07/21/22 17:06 Review of Systems Review of Systems: Pertinent positives per HPI. Patient denies any fever, chills, rash, headache, visual changes, dizziness, cough, runny nose, sore throat, shortness of breath, chest pain, palpitations, nausea, vomiting, diarrhea, constipation, abdominal pain. [facility] Past Medical History Medical History Anxiety Bronchitis Constipation Depression Family history of malignant neoplasm of colon in father Genitourinary disorder Interstitial cystitis, urethral dilation GERD (gastroesophageal reflux disease) Interstitial cystitis Irritable bowel syndrome Irritable bowel syndrome with constipation Mitral valve prolapse Right hand fracture Urinary tract infection Vaginal delivery Surgical History Surgical History H/O hemorrhoidectomy H/O sinus surgery H/O tubal ligation H/O umbilical hernia repair History of facial surgery Nasal reconstruction History of hysterectomy History of orthopedic surgery Right knee, trigger release finger left hand History of tonsillectomy History of urinary tract surgery Family History Family History Grandparent Diabetes mellitus, Onset Age: 200 Cerebrovascular accident, Onset Age: 200 Father Family history of elevated blood lipids Carcinoma of colon Family history of coronary artery disease, Onset Age: 201 Patient's father is Grandparent Family history of malignant neoplasm Diabetes mellitus Cerebrovascular accident Hypertension Family history of cardiovascular disease Father Family history of congestive heart failure Patient's father is Hypertension Carcinoma of colon Family history of emphysema
== END 2022-07-21 17:25 | disposition home or self-care (01) ==
PROVIDERS: Emergency Provider Nurse Practitioner Family
DX: N30.10 Interstitial cystitis (chronic) without hematuria (principal); K21.9 Gastro-esophageal reflux disease without esophagitis; Z87.440 Personal history of urinary (tract) infections; Z87.891 Personal history of nicotine dependence
CPT/HCPCS: 81003; 87086; 99213; G0463

== ENCOUNTER 2022-07-27 12:13 | Emergency (ER) | payer OTHER, SELFPAY ==
[2022-07-27 12:16] VITALS: BP 134/96; PULSE 80; RESP 20; TEMP 37.1; O2SAT 99
--- NOTE | 2022-07-27 12:19 | ED.FEMALEGU ---
HPI - Female Genitourinary General Chief complaint: Urogenital-Female Stated complaint: Urinary Problem Time Seen by Provider: 07/27/22 12:19 Source: patient and RN notes reviewed History of Present Illness HPI Narrative: Patient is a 47-year-old male who presents the urgent care with complaints of urinary dribbling, frequency and some abdominal bloating. Patient states the bloating is not unusual for her and she has been seeing a cook seafood and her women's health provider to rule out causes. Patient states that she is going to have her abdominal mesh removed and they found a 4.9 cm cyst on her left ovary. Patient denies of any fever, nausea or vomiting. Denies of mild suprapubic pressure. No other acute complaints. No acute distress noted. Patient aware of the plan of care. Some parts of this dictation were generated by voice recognition software and may contain typographical and/or grammatical inaccuracies. Related Data Home Medications Medication Instructions Recorded Confirmed No Home Medications 07/18/22 07/21/22 Allergies Allergy/AdvReac Type Severity Reaction Status Date / Time latex Allergy Mild RASH-CONDOMS Verified 07/21/22 17:05 AND GLOVES clindamycin Allergy Hives Verified 07/21/22 17:05 gadobenic acid Allergy Hives Verified 07/21/22 17:05 [From contrast - MRI] iohexol Allergy Hives Verified 07/21/22 17:05 [From contrast - CT, X-RAY] lubiprostone [From Amitiza] Allergy Itching Verified 07/21/22 17:05 propoxyphene Allergy Other Verified 07/21/22 17:05 [From Darvocet-N 100] acetaminophen AdvReac Other Verified 07/21/22 17:05 amoxicillin AdvReac Chest Pain Verified 07/21/22 17:05 codeine AdvReac Nausea and Verified 07/21/22 17:05 Vomiting hydrocodone AdvReac Other Verified 07/21/22 17:05 ketorolac [From Toradol] AdvReac Palpitation Verified 07/21/22 17:06 s levofloxacin [From Levaquin] AdvReac Chest Pain Verified 07/21/22 17:06 nitrofurantoin AdvReac Chest Pain Verified 07/21/22 17:06 [From Macrobid] paroxetine [From Paxil] AdvReac Other Verified 07/21/22 17:06 Penicillins AdvReac Chest Pain Verified 07/21/22 17:06 Sulfa (Sulfonamide AdvReac Chest Pain Verified 07/21/22 17:06 Antibiotics) vancomycin AdvReac Chest Pain Verified 07/21/22 17:06 Review of Systems Review of Systems: CONSTITUTIONAL: Denies fever, chills, or sweats. EYES: Denies visual changes, redness, or discharge. ENT: Denies rhinorrhea, congestion, sore throat, or otalgia. CARDIOVASCULAR: Denies chest pain, palpitations, or edema. RESPIRATORY: Denies cough or dyspnea. GASTROINTESTINAL: Denies abdominal pain, nausea, vomiting, or diarrhea. GENITOURINARY: Reports of urinary dribbling and frequency SKIN: Denies rash or itching. MUSCULOSKELETAL: Denies back pain, joint pain, or myalgia. NEUROLOGIC: Denies headache, numbness, or weakness. All other systems reviewed are negative, except as documented in HPI. [facility] Past Medical History Medical History Anxiety Bronchitis Constipation Depression Family history of malignant neoplasm of colon in father Genitourinary disorder Interstitial cystitis, urethral dilation GERD (gastroesophageal reflux disease) Interstitial cystitis Irritable bowel syndrome Irritable bowel syndrome with constipation Mitral valve prolapse Right hand fracture Urinary tract infection Vaginal delivery Surgical History Surgical History H/O hemorrhoidectomy H/O sinus surgery H/O tubal ligation H/O umbilical hernia repair History of facial surgery Nasal reconstruction History of hysterectomy History of orthopedic surgery Right knee, trigger release finger left hand History of tonsillectomy History of urinary tract surgery Family History Family History Grandparent
== END 2022-07-27 12:44 | disposition home or self-care (01) ==
PROVIDERS: Emergency Provider Nurse Practitioner Family; PCP Family Medicine
DX: N30.10 Interstitial cystitis (chronic) without hematuria (principal); Z87.891 Personal history of nicotine dependence; K21.9 Gastro-esophageal reflux disease without esophagitis; I34.1 Nonrheumatic mitral (valve) prolapse
CPT/HCPCS: 81003; 87086; 87088; 99213; G0463

== ENCOUNTER 2022-08-08 13:29 | Emergency (ER) | payer OTHER, SELFPAY ==
[2022-08-08 13:32] VITALS: BP 122/85; PULSE 72; RESP 16; TEMP 36.5; O2SAT 99
--- NOTE | 2022-08-08 13:34 | ED.FEMALEGU ---
HPI - Female Genitourinary General Chief complaint: Urogenital-Female Stated complaint: urine check Time Seen by Provider: 08/08/22 13:35 Source: patient and RN notes reviewed History of Present Illness HPI Narrative: Patient is a 47-year-old female who presents the urgent care with complaints of suprapubic pressure and increased urinary frequency. Patient states that her symptoms started today however she has not made a bowel movement in 5 days. Patient states she has a things at home to take care of the bowel movement was concerned about possible UTI. Denies of any fever, nausea, vomiting. Patient's last UAs have all been negative recently. No other acute complaints. No acute distress noted. Patient aware of the plan of care. Some parts of this dictation were generated by voice recognition software and may contain typographical and/or grammatical inaccuracies. Related Data Allergies Allergy/AdvReac Type Severity Reaction Status Date / Time latex Allergy Mild RASH-CONDOMS Verified 08/08/22 13:45 AND GLOVES clindamycin Allergy Hives Verified 08/08/22 13:45 gadobenic acid Allergy Hives Verified 08/08/22 13:45 [From contrast - MRI] iohexol Allergy Hives Verified 08/08/22 13:45 [From contrast - CT, X-RAY] lubiprostone [From Amitiza] Allergy Itching Verified 08/08/22 13:45 propoxyphene Allergy Other Verified 08/08/22 13:45 [From Darvocet-N 100] acetaminophen AdvReac Other Verified 08/08/22 13:45 amoxicillin AdvReac Chest Pain Verified 08/08/22 13:45 codeine AdvReac Nausea and Verified 08/08/22 13:45 Vomiting hydrocodone AdvReac Other Verified 08/08/22 13:45 ketorolac [From Toradol] AdvReac Palpitation Verified 08/08/22 13:45 s levofloxacin [From Levaquin] AdvReac Chest Pain Verified 08/08/22 13:45 nitrofurantoin AdvReac Chest Pain Verified 08/08/22 13:45 [From Macrobid] paroxetine [From Paxil] AdvReac Other Verified 08/08/22 13:45 Penicillins AdvReac Chest Pain Verified 08/08/22 13:45 Sulfa (Sulfonamide AdvReac Chest Pain Verified 08/08/22 13:45 Antibiotics) vancomycin AdvReac Chest Pain Verified 08/08/22 13:45 Review of Systems Review of Systems: CONSTITUTIONAL: Denies fever, chills, or sweats. EYES: Denies visual changes, redness, or discharge. ENT: Denies rhinorrhea, congestion, sore throat, or otalgia. CARDIOVASCULAR: Denies chest pain, palpitations, or edema. RESPIRATORY: Denies cough or dyspnea. GASTROINTESTINAL: Denies abdominal pain, nausea, vomiting, or diarrhea. GENITOURINARY: Reports of urinary frequency and suprapubic pressure SKIN: Denies rash or itching. MUSCULOSKELETAL: Denies back pain, joint pain, or myalgia. NEUROLOGIC: Denies headache, numbness, or weakness. All other systems reviewed are negative, except as documented in HPI. [facility] Past Medical History Medical History Anxiety Bronchitis Constipation Depression Family history of malignant neoplasm of colon in father Genitourinary disorder Interstitial cystitis, urethral dilation GERD (gastroesophageal reflux disease) Interstitial cystitis Irritable bowel syndrome Irritable bowel syndrome with constipation Mitral valve prolapse Right hand fracture Urinary tract infection Vaginal delivery Surgical History Surgical History H/O hemorrhoidectomy H/O sinus surgery H/O tubal ligation H/O umbilical hernia repair History of facial surgery Nasal reconstruction History of hysterectomy History of orthopedic surgery Right knee, trigger release finger left hand History of tonsillectomy History of urinary tract surgery Family History Family History Grandparent Diabetes mellitus, Onset Age: 200 Cerebrovascular accident, Onset Age: 200 Father Family history of elevated blood lipids Carcinoma of colon Family histor
== END 2022-08-08 14:15 | disposition home or self-care (01) ==
PROVIDERS: Emergency Provider Nurse Practitioner Family
DX: N30.90 Cystitis, unspecified without hematuria (principal); K21.9 Gastro-esophageal reflux disease without esophagitis; Z87.891 Personal history of nicotine dependence
CPT/HCPCS: 81003; 87086; 87088; 99213; G0463

== ENCOUNTER 2022-09-07 12:12 | Emergency (ER) | payer OTHER, SELFPAY ==
[2022-09-07 12:16] VITALS: BP 128/86; PULSE 84; RESP 18; TEMP 36.4; O2SAT 99
--- NOTE | 2022-09-07 12:18 | ED.FEMALEGU ---
HPI - Female Genitourinary General Chief complaint: Urogenital-Female Stated complaint: urine check Time Seen by Provider: 09/07/22 12:19 Source: patient Mode of arrival: ambulatory Limitations: no limitations History of Present Illness HPI Narrative: 47-year-old female presents stating that she would like here urine checked today. States that she has had a little bit urinary frequency but really no symptoms. States that she has interstitial cystitis. Had a recent surgery and has been taking medication for constipation. Just would really like parents . Denies fever or chills. No pain at this time. All systems reviewed and negative except as noted above. Related Data Home Medications Medication Instructions Recorded Confirmed No Home Medications 09/07/22 09/07/22 Allergies Allergy/AdvReac Type Severity Reaction Status Date / Time latex Allergy Mild RASH-CONDOMS Verified 09/07/22 12:25 AND GLOVES clindamycin Allergy Hives Verified 09/07/22 12:25 gadobenic acid Allergy Hives Verified 09/07/22 12:25 [From contrast - MRI] iohexol Allergy Hives Verified 09/07/22 12:25 [From contrast - CT, X-RAY] lubiprostone [From Amitiza] Allergy Itching Verified 09/07/22 12:25 propoxyphene Allergy Other Verified 09/07/22 12:25 [From Darvocet-N 100] acetaminophen AdvReac Other Verified 09/07/22 12:25 amoxicillin AdvReac Chest Pain Verified 09/07/22 12:25 codeine AdvReac Nausea and Verified 09/07/22 12:25 Vomiting hydrocodone AdvReac Other Verified 09/07/22 12:25 ketorolac [From Toradol] AdvReac Palpitation Verified 09/07/22 12:25 s levofloxacin [From Levaquin] AdvReac Chest Pain Verified 09/07/22 12:25 nitrofurantoin AdvReac Chest Pain Verified 09/07/22 12:25 [From Macrobid] paroxetine [From Paxil] AdvReac Other Verified 09/07/22 12:25 Penicillins AdvReac Chest Pain Verified 09/07/22 12:25 Sulfa (Sulfonamide AdvReac Chest Pain Verified 09/07/22 12:25 Antibiotics) vancomycin AdvReac Chest Pain Verified 09/07/22 12:25 Review of Systems Review of Systems: CONSTITUTIONAL: Denies fever, chills, or sweats. EYES: Denies visual changes, redness, or discharge. ENT: Denies rhinorrhea, congestion, sore throat, or otalgia. CARDIOVASCULAR: Denies chest pain, palpitations, or edema. RESPIRATORY: Denies cough or dyspnea. GASTROINTESTINAL: Denies abdominal pain, nausea, vomiting, or diarrhea. GENITOURINARY: Denies dysuria or hematuria. Reports urinary frequency. SKIN: Denies rash or itching. MUSCULOSKELETAL: Denies back pain, joint pain, or myalgia. NEUROLOGIC: Denies headache, numbness, or weakness. PSYCHIATRIC: Denies anxiety or depression. All other systems reviewed are negative, except as documented in HPI. [facility] Past Medical History Medical History Anxiety Bronchitis Constipation Depression Family history of malignant neoplasm of colon in father Genitourinary disorder Interstitial cystitis, urethral dilation GERD (gastroesophageal reflux disease) Interstitial cystitis Irritable bowel syndrome Irritable bowel syndrome with constipation Mitral valve prolapse Right hand fracture Urinary tract infection Vaginal delivery Surgical History Surgical History H/O hemorrhoidectomy H/O sinus surgery H/O tubal ligation H/O umbilical hernia repair History of facial surgery Nasal reconstruction History of hysterectomy History of orthopedic surgery Right knee, trigger release finger left hand History of tonsillectomy History of urinary tract surgery Family History Family History Grandparent Diabetes mellitus, Onset Age: 200 Cerebrovascular accident, Onset Age: 200 Father Family history of elevated blood lipids Carcinoma of colon Family history of coronary artery disease, Onset Age: 201 Patient'
[2022-09-07 12:26] VITALS: BP 128/86; PULSE 84; RESP 18; TEMP 36.4; O2SAT 99
== END 2022-09-07 12:47 | disposition home or self-care (01) ==
PROVIDERS: Emergency Provider Nurse Practitioner Family
DX: R35.0 Frequency of micturition (principal); Z87.891 Personal history of nicotine dependence; K21.9 Gastro-esophageal reflux disease without esophagitis; I34.1 Nonrheumatic mitral (valve) prolapse
CPT/HCPCS: 81003; 87086; 99213; G0463

== ENCOUNTER 2022-09-08 15:59 | Emergency (ER) | payer OTHER, SELFPAY ==
[2022-09-08 16:04] VITALS: BP 109/81; PULSE 90; RESP 20; TEMP 36.5; O2SAT 100
--- NOTE | 2022-09-08 16:30 | ED.FEMALEGU ---
HPI - Female Genitourinary General Chief complaint: Urogenital-Female Stated complaint: urine check Time Seen by Provider: 09/08/22 16:10 Source: patient Mode of arrival: ambulatory Limitations: no limitations History of Present Illness HPI Narrative: Ms. dorsey is a 47-year-old female patient presenting to the clinic today with complaints of dysuria x1 day. She reports this morning when she urinated she had a lot of discomfort with urination and would like to be checked for urinary tract infection. She denies any fever or chills. She denies any abdominal pain or flank pain Related Data Home Medications Medication Instructions Recorded Confirmed No Home Medications 09/07/22 09/08/22 Allergies Allergy/AdvReac Type Severity Reaction Status Date / Time latex Allergy Mild RASH-CONDOMS Verified 09/08/22 16:27 AND GLOVES clindamycin Allergy Hives Verified 09/08/22 16:27 gadobenic acid Allergy Hives Verified 09/08/22 16:27 [From contrast - MRI] iohexol Allergy Hives Verified 09/08/22 16:27 [From contrast - CT, X-RAY] lubiprostone [From Amitiza] Allergy Itching Verified 09/08/22 16:27 propoxyphene Allergy Other Verified 09/08/22 16:27 [From Darvocet-N 100] acetaminophen AdvReac Other Verified 09/08/22 16:27 amoxicillin AdvReac Chest Pain Verified 09/08/22 16:27 codeine AdvReac Nausea and Verified 09/08/22 16:27 Vomiting hydrocodone AdvReac Other Verified 09/08/22 16:27 ketorolac [From Toradol] AdvReac Palpitation Verified 09/08/22 16:27 s levofloxacin [From Levaquin] AdvReac Chest Pain Verified 09/08/22 16:27 nitrofurantoin AdvReac Chest Pain Verified 09/08/22 16:27 [From Macrobid] paroxetine [From Paxil] AdvReac Other Verified 09/08/22 16:27 Penicillins AdvReac Chest Pain Verified 09/08/22 16:27 Sulfa (Sulfonamide AdvReac Chest Pain Verified 09/08/22 16:27 Antibiotics) vancomycin AdvReac Chest Pain Verified 09/08/22 16:27 Review of Systems Review of Systems: Pertinent positives per HPI. Patient denies any fever, chills, rash, headache, visual changes, dizziness, cough, runny nose, sore throat, shortness of breath, chest pain, palpitations, nausea, vomiting, diarrhea, constipation, abdominal pain PMFSH Past Medical History Medical History Anxiety Bronchitis Constipation Depression Family history of malignant neoplasm of colon in father Genitourinary disorder Interstitial cystitis, urethral dilation GERD (gastroesophageal reflux disease) Interstitial cystitis Irritable bowel syndrome Irritable bowel syndrome with constipation Mitral valve prolapse Right hand fracture Urinary tract infection Vaginal delivery Surgical History Surgical History H/O hemorrhoidectomy H/O sinus surgery H/O tubal ligation H/O umbilical hernia repair History of facial surgery Nasal reconstruction History of hysterectomy History of orthopedic surgery Right knee, trigger release finger left hand History of tonsillectomy History of urinary tract surgery Family History Family History Grandparent Diabetes mellitus, Onset Age: 200 Cerebrovascular accident, Onset Age: 200 Father Family history of elevated blood lipids Carcinoma of colon Family history of coronary artery disease, Onset Age: 201 Patient's father is Grandparent Family history of malignant neoplasm Diabetes mellitus Cerebrovascular accident Hypertension Family history of cardiovascular disease Father Family history of congestive heart failure Patient's father is Hypertension Carcinoma of colon Family history of emphysema Family history of cardiovascular disease Sibling Hypertension Grandparent Diabetes mellitus Social History Social History (Reviewed 09/08/22 @ 16:
== END 2022-09-08 16:35 | disposition home or self-care (01) ==
PROVIDERS: Emergency Provider Nurse Practitioner Family
DX: R30.0 Dysuria (principal); Z87.891 Personal history of nicotine dependence; K21.9 Gastro-esophageal reflux disease without esophagitis; I34.1 Nonrheumatic mitral (valve) prolapse
CPT/HCPCS: 81003; 87086; 87088; 99213; G0463

== ENCOUNTER 2022-09-13 12:16 | Emergency (ER) | payer OTHER, SELFPAY ==
[2022-09-13 12:27] VITALS: BP 112/75; PULSE 99; RESP 16; TEMP 37.2; O2SAT 99
--- NOTE | 2022-09-13 13:47 | ED.FEMALEGU ---
HPI - Female Genitourinary General Chief complaint: Urogenital-Female Stated complaint: iritation when urination Time Seen by Provider: 09/13/22 13:10 Source: patient, RN notes reviewed and old records reviewed Mode of arrival: ambulatory Limitations: no limitations History of Present Illness HPI Narrative: 47 year old female who presents to [facility] care with complaints of vaginal irritation with burning noted after urination for the past week. Patient denies any frequency ,urgency or pain with urination stream,no visible blood noted. Patient denies any vaginal discharge does report some itching. has tried Monistat OTC that initially helped but id not resolve her symptoms.Denies any concern for STD exposure. MD elicited complaint: other (vaginal irritation) Pertinent past history: interstitial cystits Onset (ago): week(s) (1) Treatment prior to arrival: OTC vaginal cream Related Data Home Medications Medication Instructions Recorded Confirmed ondansetron 4 mg disintegrating 4 mg PO TID PRN Nausea 09/13/22 09/13/22 tablet pantoprazole 40 mg tablet,delayed 40 mg PO DAILY 09/13/22 09/13/22 release sucralfate 1 gram tablet 1 g PO Q6H 09/13/22 09/13/22 Allergies Allergy/AdvReac Type Severity Reaction Status Date / Time latex Allergy Mild RASH-CONDOMS Verified 09/13/22 13:12 AND GLOVES clindamycin Allergy Hives Verified 09/13/22 13:12 gadobenic acid Allergy Hives Verified 09/13/22 13:12 [From contrast - MRI] iohexol Allergy Hives Verified 09/13/22 13:12 [From contrast - CT, X-RAY] lubiprostone [From Amitiza] Allergy Itching Verified 09/13/22 13:12 propoxyphene Allergy Other Verified 09/13/22 13:12 [From Darvocet-N 100] acetaminophen AdvReac Other Verified 09/13/22 13:12 amoxicillin AdvReac Chest Pain Verified 09/13/22 13:12 codeine AdvReac Nausea and Verified 09/13/22 13:12 Vomiting hydrocodone AdvReac Other Verified 09/13/22 13:12 ketorolac [From Toradol] AdvReac Palpitation Verified 09/13/22 13:13 s levofloxacin [From Levaquin] AdvReac Chest Pain Verified 09/13/22 13:13 nitrofurantoin AdvReac Chest Pain Verified 09/13/22 13:13 [From Macrobid] paroxetine [From Paxil] AdvReac Other Verified 09/13/22 13:13 Penicillins AdvReac Chest Pain Verified 09/13/22 13:13 Sulfa (Sulfonamide AdvReac Chest Pain Verified 09/13/22 13:13 Antibiotics) vancomycin AdvReac Chest Pain Verified 09/13/22 13:13 Review of Systems Review of Systems: CONSTITUTIONAL: Denies fever, chills, or sweats. CARDIOVASCULAR: Denies chest pain, palpitations, or edema. RESPIRATORY: Denies cough or dyspnea. GASTROINTESTINAL: Denies abdominal pain, nausea, vomiting, or diarrhea. GENITOURINARY: Denies dysuria, frequency, urgency. Denies flank pain or hematuria.reports vaginal irritation and pain after urination. SKIN: Denies rash or itching. MUSCULOSKELETAL: Denies back pain or myalgia. Denies CVA tenderness NEUROLOGIC: Denies headache All systems reviewed & are unremarkable except as noted in HPI and below PMFSH Past Medical History Medical History Anxiety Bronchitis Constipation Depression Family history of malignant neoplasm of colon in father Genitourinary disorder Interstitial cystitis, urethral dilation GERD (gastroesophageal reflux disease) Interstitial cystitis Irritable bowel syndrome Irritable bowel syndrome with constipation Mitral valve prolapse Right hand fracture Urinary tract infection Vaginal delivery Surgical History Surgical History H/O hemorrhoidectomy H/O sinus surgery H/O tubal ligation H/O umbilical hernia repair History of facial surgery Nasal reconstruction History of hysterectomy History of orthopedic surgery Right knee, trigger release finger left hand History of tonsillectomy History of urinary tract surgery Family History Family History (Reviewed 11
== END 2022-09-13 14:10 | disposition home or self-care (01) ==
PROVIDERS: Emergency Provider Registered Nurse
DX: N76.0 Acute vaginitis (principal); Z87.891 Personal history of nicotine dependence
CPT/HCPCS: 81003; 99213; G0463

== ENCOUNTER 2022-09-18 16:51 | Emergency (ER) | payer OTHER, SELFPAY ==
[2022-09-18 17:05] VITALS: BP 123/78; PULSE 73; RESP 18; TEMP 36.8; O2SAT 100
--- NOTE | 2022-09-18 17:24 | PC.NURSE ---
Pt in bathroom after RN's assessment, but RN had not been able to get back in pt's room to collect urine sample. Pt did not tell any staff that she was leaving, but RN saw Pt walking down hallway, then exited into lobby. [employer]ER had not evaluated pt yet. RN checked lobby and pt was no longer there.
== END 2022-09-18 17:30 | disposition left against medical advice (07) ==
LOC: EXPBETH 16:52
PROVIDERS: Emergency Provider Nurse Practitioner Family
DX: Z53.21 Procedure and treatment not carried out due to patient leaving prior to being seen by health care provider (principal)
CPT/HCPCS: 99199

== ENCOUNTER 2022-09-19 14:44 | Emergency (ER) | payer OTHER, SELFPAY ==
[2022-09-19 14:52] VITALS: BP 121/92; PULSE 98; RESP 16; TEMP 37.1; O2SAT 100
--- NOTE | 2022-09-19 15:29 | ED.FEMALEGU ---
HPI - Female Genitourinary General Chief complaint: Urogenital-Female Stated complaint: possible uti Time Seen by Provider: 09/19/22 15:16 Source: patient Mode of arrival: ambulatory Limitations: no limitations History of Present Illness HPI Narrative: patient presents today complaining of urinary frequency and lower abdominal pressure intermittently for the past couple of months. Extensive history of interstitial cystitis. Patient just had a replacement of her bladder mesh [address] [facility]. she frequently comes to urgent care to have her urine checked for infection. She has had multiple urine cultures in the past that are all negative for infection, But are frequently positive for trace blood. Related Data Home Medications Medication Instructions Recorded Confirmed ondansetron 4 mg disintegrating 4 mg PO TID PRN Nausea 09/13/22 09/18/22 tablet pantoprazole 40 mg tablet,delayed 40 mg PO DAILY 09/13/22 09/19/22 release sucralfate 1 gram tablet 1 g PO Q6H 09/13/22 09/18/22 Allergies Allergy/AdvReac Type Severity Reaction Status Date / Time latex Allergy Mild RASH-CONDOMS Verified 09/19/22 14:59 AND GLOVES clindamycin Allergy Hives Verified 09/19/22 14:59 gadobenic acid Allergy Hives Verified 09/19/22 14:59 [From contrast - MRI] iohexol Allergy Hives Verified 09/19/22 14:59 [From contrast - CT, X-RAY] lubiprostone [From Amitiza] Allergy Itching Verified 09/19/22 14:59 propoxyphene Allergy Other Verified 09/19/22 14:59 [From Darvocet-N 100] acetaminophen AdvReac Other Verified 09/19/22 14:59 amoxicillin AdvReac Chest Pain Verified 09/19/22 14:59 codeine AdvReac Nausea and Verified 09/19/22 14:59 Vomiting hydrocodone AdvReac Other Verified 09/19/22 14:59 ketorolac [From Toradol] AdvReac Palpitation Verified 09/19/22 14:59 s levofloxacin [From Levaquin] AdvReac Chest Pain Verified 09/19/22 14:59 nitrofurantoin AdvReac Chest Pain Verified 09/19/22 14:59 [From Macrobid] paroxetine [From Paxil] AdvReac Other Verified 09/19/22 14:59 Penicillins AdvReac Chest Pain Verified 09/19/22 14:59 Sulfa (Sulfonamide AdvReac Chest Pain Verified 09/19/22 14:59 Antibiotics) vancomycin AdvReac Chest Pain Verified 09/19/22 14:59 Review of Systems Review of Systems: CONSTITUTIONAL: Denies body aches, fever, chills, or sweats. EYES: Denies visual changes, redness, or discharge. ENT: Denies rhinorrhea, congestion, sore throat, or otalgia. CARDIOVASCULAR: Denies chest pain, palpitations, or edema. RESPIRATORY: Denies cough or dyspnea. GASTROINTESTINAL: Denies abdominal pain, nausea, vomiting, or diarrhea.+ lower abdominal pressure GENITOURINARY: Denies dysuria or hematuria.+ frequency SKIN: Denies rash, itching, or wounds. MUSCULOSKELETAL: Denies back pain, joint pain, or myalgia. NEUROLOGIC: Denies headache, numbness, tingling, or weakness. PSYCH: Denies depression or anxiety. [facility] Past Medical History Medical History Anxiety Bronchitis Constipation Depression Family history of malignant neoplasm of colon in father Genitourinary disorder Interstitial cystitis, urethral dilation GERD (gastroesophageal reflux disease) Interstitial cystitis Irritable bowel syndrome Irritable bowel syndrome with constipation Mitral valve prolapse Right hand fracture Urinary tract infection Vaginal delivery Surgical History Surgical History H/O hemorrhoidectomy H/O sinus surgery H/O tubal ligation H/O umbilical hernia repair History of facial surgery Nasal reconstruction History of hysterectomy History of orthopedic surgery Right knee, trigger release finger left hand History of tonsillectomy History of urinary tract surgery Family History Family History Grandparent Diabetes zia
== END 2022-09-19 15:38 | disposition home or self-care (01) ==
PROVIDERS: Emergency Provider Nurse Practitioner
DX: N30.21 Other chronic cystitis with hematuria (principal); Z87.891 Personal history of nicotine dependence; K21.9 Gastro-esophageal reflux disease without esophagitis; I34.1 Nonrheumatic mitral (valve) prolapse
CPT/HCPCS: 81003; 99212; G0463

== ENCOUNTER 2022-09-23 16:44 | Emergency (ER) | payer OTHER, SELFPAY ==
--- NOTE | 2022-09-23 16:46 | ED.FEMALEGU ---
HPI - Female Genitourinary General Stated complaint: Urine check Time Seen by Provider: 09/23/22 17:08 Source: patient and RN notes reviewed Mode of arrival: ambulatory Limitations: no limitations History of Present Illness HPI Narrative: 47-year-old female presents with concern for checking her urine. She reports she has been having some suprapubic pressure and lower abdominal discomfort, she wants to make sure she does not have urinary tract infection. She reports she was diagnosed with constipation and started on MiraLax, she is not sure of her discomfort is related to her constipation or potential urinary tract infection. She denies frequency, urgency, strong odor, hematuria, back pain, fever, chills, sweats. MD elicited complaint: UTI Related Data Home Medications Medication Instructions Recorded Confirmed pantoprazole 40 mg tablet,delayed 40 mg PO DAILY 09/13/22 09/19/22 release Allergies Allergy/AdvReac Type Severity Reaction Status Date / Time latex Allergy Mild RASH-CONDOMS Verified 09/23/22 17:05 AND GLOVES clindamycin Allergy Hives Verified 09/23/22 17:05 gadobenic acid Allergy Hives Verified 09/23/22 17:05 [From contrast - MRI] iohexol Allergy Hives Verified 09/23/22 17:05 [From contrast - CT, X-RAY] lubiprostone [From Amitiza] Allergy Itching Verified 09/23/22 17:05 propoxyphene Allergy Other Verified 09/23/22 17:05 [From Darvocet-N 100] acetaminophen AdvReac Other Verified 09/23/22 17:05 amoxicillin AdvReac Chest Pain Verified 09/23/22 17:05 codeine AdvReac Nausea and Verified 09/23/22 17:05 Vomiting hydrocodone AdvReac Other Verified 09/23/22 17:05 ketorolac [From Toradol] AdvReac Palpitation Verified 09/23/22 17:05 s levofloxacin [From Levaquin] AdvReac Chest Pain Verified 09/23/22 17:05 nitrofurantoin AdvReac Chest Pain Verified 09/23/22 17:05 [From Macrobid] paroxetine [From Paxil] AdvReac Other Verified 09/23/22 17:05 Penicillins AdvReac Chest Pain Verified 09/23/22 17:05 Sulfa (Sulfonamide AdvReac Chest Pain Verified 09/23/22 17:05 Antibiotics) vancomycin AdvReac Chest Pain Verified 09/23/22 17:05 Review of Systems Review of Systems: CONSTITUTIONAL: Denies malaise, chills, sweats, or fever. CARDIOVASCULAR: Denies chest pain, palpitations, or edema. RESPIRATORY: Denies cough or dyspnea. GASTROINTESTINAL: Denies abdominal pain, nausea, vomiting, diarrhea GENITOURINARY: Denies dysuria, frequency, urgency. Reports suprapubic pressure. Denies flank pain or hematuria. SKIN: Denies rash or itching. MUSCULOSKELETAL: Denies back pain or myalgia. All systems reviewed & are unremarkable except as noted in HPI and below PMFSH Past Medical History Medical History Anxiety Bronchitis Constipation Depression Family history of malignant neoplasm of colon in father Genitourinary disorder Interstitial cystitis, urethral dilation GERD (gastroesophageal reflux disease) Interstitial cystitis Irritable bowel syndrome Irritable bowel syndrome with constipation Mitral valve prolapse Right hand fracture Urinary tract infection Vaginal delivery Surgical History Surgical History H/O hemorrhoidectomy H/O sinus surgery H/O tubal ligation H/O umbilical hernia repair History of facial surgery Nasal reconstruction History of hysterectomy History of orthopedic surgery Right knee, trigger release finger left hand History of tonsillectomy History of urinary tract surgery Family History Family History Grandparent Diabetes mellitus, Onset Age: 200 Cerebrovascular accident, Onset Age: 200 Father Family history of elevated blood lipids Carcinoma of colon Family history of coronary artery disease, Onset Age: 201 Patient's father is Gran
[2022-09-23 16:50] VITALS: BP 131/82; PULSE 78; RESP 14; TEMP 36.6; O2SAT 100
--- NOTE | 2022-09-23 17:25 | PC.NURSE ---
RN to room to discharge Pt. Attempted to educate Pt that she can buy OTC UA kits to test her urine at home as often as she wishes. Pt states I know. I can't read those things and I don't trust them. I want it to be accurate . Pt informed that the OTC dipsticks are the exact same that we use here, so accuracy does not need to be a concern. Pt states I just like to have the girls read it for me so I know 100% . RN again explained that the tests are the same and it would be much cheaper for her to use the OTC tests instead of coming to [facility] multiple times a week, to which pt replies I don't mind. I'd rather be 100% certain .
== END 2022-09-23 17:30 | disposition home or self-care (01) ==
PROVIDERS: Emergency Provider Nurse Practitioner
DX: Z04.89 Encounter for examination and observation for other specified reasons (principal); Z87.891 Personal history of nicotine dependence; K21.9 Gastro-esophageal reflux disease without esophagitis; I34.1 Nonrheumatic mitral (valve) prolapse
CPT/HCPCS: 81003; 87086; 99213; G0463

== ENCOUNTER 2022-09-30 14:26 | Emergency (ER) | payer SELFPAY ==
--- NOTE | 2022-09-30 14:33 | ED.FEMALEGU ---
HPI - Female Genitourinary General Chief complaint: Urogenital-Female Stated complaint: Urinary Problem Time Seen by Provider: 09/30/22 14:33 Source: patient and RN notes reviewed History of Present Illness HPI Narrative: patient is a 47-year-old female who presents to urgent care with complaints of a possible UTI due to GI upset. Patient states that it started a couple days ago. Denies of her typical symptoms of urinary frequency urgency. Denies any nausea or vomiting or back pain. Patient has not taken anything [id number] for her symptoms. Patient's last for cultures at the facility have been negative. No other acute complaints. No acute distress noted. Patient aware of the plan of care. Some parts of this dictation were generated by voice recognition software and may contain typographical and/or grammatical inaccuracies. Related Data Home Medications Medication Instructions Recorded Confirmed pantoprazole 40 mg tablet,delayed 40 mg PO BID 09/13/22 09/19/22 release Allergies Allergy/AdvReac Type Severity Reaction Status Date / Time latex Allergy Mild RASH-CONDOMS Verified 09/30/22 14:46 AND GLOVES clindamycin Allergy Hives Verified 09/30/22 14:46 gadobenic acid Allergy Hives Verified 09/30/22 14:46 [From contrast - MRI] iohexol Allergy Hives Verified 09/30/22 14:46 [From contrast - CT, X-RAY] lubiprostone [From Amitiza] Allergy Itching Verified 09/30/22 14:46 propoxyphene Allergy Other Verified 09/30/22 14:46 [From Darvocet-N 100] acetaminophen AdvReac Other Verified 09/30/22 14:46 amoxicillin AdvReac Chest Pain Verified 09/30/22 14:46 codeine AdvReac Nausea and Verified 09/30/22 14:46 Vomiting hydrocodone AdvReac Other Verified 09/30/22 14:46 ketorolac [From Toradol] AdvReac Palpitation Verified 09/30/22 14:46 s levofloxacin [From Levaquin] AdvReac Chest Pain Verified 09/30/22 14:46 nitrofurantoin AdvReac Chest Pain Verified 09/30/22 14:46 [From Macrobid] paroxetine [From Paxil] AdvReac Other Verified 09/30/22 14:46 Penicillins AdvReac Chest Pain Verified 09/30/22 14:46 Sulfa (Sulfonamide AdvReac Chest Pain Verified 09/30/22 14:46 Antibiotics) vancomycin AdvReac Chest Pain Verified 09/30/22 14:46 Review of Systems Review of Systems: CONSTITUTIONAL: Denies fever, chills, or sweats. EYES: Denies visual changes, redness, or discharge. ENT: Denies rhinorrhea, congestion, sore throat, or otalgia. CARDIOVASCULAR: Denies chest pain, palpitations, or edema. RESPIRATORY: Denies cough or dyspnea. GASTROINTESTINAL: Reports of some GI upset/gas GENITOURINARY: Denies dysuria or hematuria. SKIN: Denies rash or itching. MUSCULOSKELETAL: Denies back pain, joint pain, or myalgia. NEUROLOGIC: Denies headache, numbness, or weakness. All other systems reviewed are negative, except as documented in HPI. [facility] Past Medical History Medical History Anxiety Bronchitis Constipation Depression Family history of malignant neoplasm of colon in father Genitourinary disorder Interstitial cystitis, urethral dilation GERD (gastroesophageal reflux disease) Interstitial cystitis Irritable bowel syndrome Irritable bowel syndrome with constipation Mitral valve prolapse Right hand fracture Urinary tract infection Vaginal delivery Surgical History Surgical History H/O hemorrhoidectomy H/O sinus surgery H/O tubal ligation H/O umbilical hernia repair History of facial surgery Nasal reconstruction History of hysterectomy History of orthopedic surgery Right knee, trigger release finger left hand History of tonsillectomy History of urinary tract surgery Family History Family History Grandparent Diabetes mellitus, Onset Age: 200 Cerebrovascular accident, Onset Age: 200 F
[2022-09-30 14:36] VITALS: BP 119/78; PULSE 71; RESP 14; TEMP 36.9; O2SAT 100
== END 2022-09-30 15:12 | disposition home or self-care (01) ==
PROVIDERS: Emergency Provider Nurse Practitioner Family
DX: N30.10 Interstitial cystitis (chronic) without hematuria (principal); Z87.891 Personal history of nicotine dependence; K21.9 Gastro-esophageal reflux disease without esophagitis; I34.1 Nonrheumatic mitral (valve) prolapse
CPT/HCPCS: 81003; 87086; 99213; G0463

== ENCOUNTER 2022-10-03 09:53 | Emergency (ER) | payer SELFPAY ==
[2022-10-03 10:00] VITALS: BP 125/82; PULSE 69; RESP 16; TEMP 36.1; O2SAT 100
--- NOTE | 2022-10-03 10:38 | ED.FEMALEGU ---
HPI - Female Genitourinary General Chief complaint: Urogenital-Female Stated complaint: Bladder issues Time Seen by Provider: 10/03/22 10:39 Source: patient and RN notes reviewed Mode of arrival: ambulatory Limitations: no limitations History of Present Illness HPI Narrative: 47-year-old female with history of IBS -C and chronic interstitial cystitis presented for complaints of burning with urination and bladder spasms for the last 4 days. She was seen at our facility 3 days ago, and in the emergency room yesterday for the same complaint. She states a urine culture has been sent from ER, and this showed on her my-chart which she provided. She also started herself on Bactrim last evening. States she has contacted her urologist who also has a urine test pending.?Denies any nausea or vomiting or back pain, fever/chills.? Patient has not taken anything [id number] for her symptoms.? Patient's last 4 cultures at this facility have been negative since 09/07.? No other acute complaints.? No acute distress noted.? Related Data Home Medications Medication Instructions Recorded Confirmed pantoprazole 40 mg tablet,delayed 40 mg PO BID 09/13/22 10/03/22 release Allergies Allergy/AdvReac Type Severity Reaction Status Date / Time latex Allergy Mild RASH-CONDOMS Verified 10/03/22 10:08 AND GLOVES clindamycin Allergy Hives Verified 10/03/22 10:08 gadobenic acid Allergy Hives Verified 10/03/22 10:08 [From contrast - MRI] iohexol Allergy Hives Verified 10/03/22 10:08 [From contrast - CT, X-RAY] lubiprostone [From Amitiza] Allergy Itching Verified 10/03/22 10:08 propoxyphene Allergy Other Verified 10/03/22 10:08 [From Darvocet-N 100] acetaminophen AdvReac Other Verified 10/03/22 10:08 amoxicillin AdvReac Chest Pain Verified 10/03/22 10:08 codeine AdvReac Nausea and Verified 10/03/22 10:08 Vomiting hydrocodone AdvReac Other Verified 10/03/22 10:08 ketorolac [From Toradol] AdvReac Palpitation Verified 10/03/22 10:08 s levofloxacin [From Levaquin] AdvReac Chest Pain Verified 10/03/22 10:08 nitrofurantoin AdvReac Chest Pain Verified 10/03/22 10:08 [From Macrobid] paroxetine [From Paxil] AdvReac Other Verified 10/03/22 10:08 Penicillins AdvReac Chest Pain Verified 10/03/22 10:08 Sulfa (Sulfonamide AdvReac Chest Pain Verified 10/03/22 10:08 Antibiotics) vancomycin AdvReac Chest Pain Verified 10/03/22 10:08 Review of Systems Review of Systems: CONSTITUTIONAL: Denies body aches, fever, chills, or sweats. CARDIOVASCULAR: Denies chest pain, palpitations, or edema. RESPIRATORY: Denies cough or dyspnea. GASTROINTESTINAL: Denies abdominal pain, nausea, vomiting, or diarrhea. GENITOURINARY: Reports dysuria, denies frequency, urgency, hematuria, flank pain SKIN: Denies rash, itching, or wounds. MUSCULOSKELETAL: Denies back pain or myalgia. [facility] Past Medical History Medical History Anxiety Bronchitis Constipation Depression Family history of malignant neoplasm of colon in father Genitourinary disorder Interstitial cystitis, urethral dilation GERD (gastroesophageal reflux disease) Interstitial cystitis Irritable bowel syndrome Irritable bowel syndrome with constipation Mitral valve prolapse Right hand fracture Urinary tract infection Vaginal delivery Surgical History Surgical History H/O hemorrhoidectomy H/O sinus surgery H/O tubal ligation H/O umbilical hernia repair History of facial surgery Nasal reconstruction History of hysterectomy History of orthopedic surgery Right knee, trigger release finger left hand History of tonsillectomy History of urinary tract surgery Family History Family History Grandparent Diabetes mellitus, Onset Age: 200 Cerebrovascular accident, Onset Age: 200
== END 2022-10-03 10:50 | disposition home or self-care (01) ==
PROVIDERS: Emergency Provider Nurse Practitioner Family
DX: N30.10 Interstitial cystitis (chronic) without hematuria (principal); Z87.891 Personal history of nicotine dependence; K21.9 Gastro-esophageal reflux disease without esophagitis; I34.1 Nonrheumatic mitral (valve) prolapse
CPT/HCPCS: 81003; 99212; G0463

== ENCOUNTER 2022-10-08 17:05 | Emergency (ER) | payer SELFPAY ==
--- NOTE | 2022-10-08 17:06 | ED.FEMALEGU ---
HPI - Female Genitourinary General Chief complaint: Urogenital-Female Stated complaint: urine check Time Seen by Provider: 10/08/22 17:06 Source: patient and RN notes reviewed History of Present Illness HPI Narrative: Patient is a 47-year-old female who presents to urgent care with complaints of a possible UTI with 2 day history of urinary frequency and low back pain. Patient was evaluated on October 03, annd 7th. The last 5 urine cultures at our facility have all been negative for any bacteria. Patient denies any nausea, vomiting or abdominal pain. No other acute complaints. No acute distress noted. Patient Aware of the plan of care. Some parts of this dictation were generated by voice recognition software and may contain typographical and/or grammatical inaccuracies. Related Data Home Medications Medication Instructions Recorded Confirmed pantoprazole 40 mg tablet,delayed 40 mg PO BID 09/13/22 10/03/22 release Allergies Allergy/AdvReac Type Severity Reaction Status Date / Time latex Allergy Mild RASH-CONDOMS Verified 10/08/22 17:18 AND GLOVES clindamycin Allergy Hives Verified 10/08/22 17:18 gadobenic acid Allergy Hives Verified 10/08/22 17:18 [From contrast - MRI] iohexol Allergy Hives Verified 10/08/22 17:18 [From contrast - CT, X-RAY] lubiprostone [From Amitiza] Allergy Itching Verified 10/08/22 17:18 propoxyphene Allergy Other Verified 10/08/22 17:18 [From Darvocet-N 100] acetaminophen AdvReac Other Verified 10/08/22 17:18 amoxicillin AdvReac Chest Pain Verified 10/08/22 17:18 codeine AdvReac Nausea and Verified 10/08/22 17:18 Vomiting hydrocodone AdvReac Other Verified 10/08/22 17:18 ketorolac [From Toradol] AdvReac Palpitation Verified 10/08/22 17:18 s levofloxacin [From Levaquin] AdvReac Chest Pain Verified 10/08/22 17:18 nitrofurantoin AdvReac Chest Pain Verified 10/08/22 17:18 [From Macrobid] paroxetine [From Paxil] AdvReac Other Verified 10/08/22 17:18 Penicillins AdvReac Chest Pain Verified 10/08/22 17:18 Sulfa (Sulfonamide AdvReac Chest Pain Verified 10/08/22 17:18 Antibiotics) vancomycin AdvReac Chest Pain Verified 10/08/22 17:18 Review of Systems Review of Systems: CONSTITUTIONAL: Denies fever, chills, or sweats. EYES: Denies visual changes, redness, or discharge. ENT: Denies rhinorrhea, congestion, sore throat, or otalgia. CARDIOVASCULAR: Denies chest pain, palpitations, or edema. RESPIRATORY: Denies cough or dyspnea. GASTROINTESTINAL: Denies abdominal pain, nausea, vomiting, or diarrhea. GENITOURINARY: Reports of urinary frequency and flank pain SKIN: Denies rash or itching. MUSCULOSKELETAL: Denies back pain, joint pain, or myalgia. NEUROLOGIC: Denies headache, numbness, or weakness. All other systems reviewed are negative, except as documented in HPI. [facility] Past Medical History Medical History Anxiety Bronchitis Constipation Depression Family history of malignant neoplasm of colon in father Genitourinary disorder Interstitial cystitis, urethral dilation GERD (gastroesophageal reflux disease) Interstitial cystitis Irritable bowel syndrome Irritable bowel syndrome with constipation Mitral valve prolapse Right hand fracture Urinary tract infection Vaginal delivery Surgical History Surgical History H/O hemorrhoidectomy H/O sinus surgery H/O tubal ligation H/O umbilical hernia repair History of facial surgery Nasal reconstruction History of hysterectomy History of orthopedic surgery Right knee, trigger release finger left hand History of tonsillectomy History of urinary tract surgery Family History Family History Grandparent Diabetes mellitus, Onset Age: 200 Cerebrovascular accident, Onset Age: 200 Father Family his
[2022-10-08 17:10] VITALS: BP 113/77; PULSE 93; RESP 18; TEMP 36.6; O2SAT 100
== END 2022-10-08 17:40 | disposition home or self-care (01) ==
PROVIDERS: Emergency Provider Nurse Practitioner Family
DX: N30.10 Interstitial cystitis (chronic) without hematuria (principal); Z87.891 Personal history of nicotine dependence
CPT/HCPCS: 81003; 87086; 99213; G0463

== ENCOUNTER 2022-10-11 14:45 | Emergency (ER) | payer SELFPAY ==
[2022-10-11 15:00] VITALS: BP 130/83; PULSE 76; RESP 16; TEMP 36.6; O2SAT 99
--- NOTE | 2022-10-11 15:35 | ED.FEMALEGU ---
HPI - Female Genitourinary General Chief complaint: Urogenital-Female Stated complaint: Urinary Problem Time Seen by Provider: 10/11/22 15:15 Source: patient Mode of arrival: ambulatory Limitations: no limitations History of Present Illness HPI Narrative: Ms. Jauregui is a 47-year-old female patient presenting to the clinic today with complaints of dysuria over the last few days. She reports that she has had some discomfort with urination. She denies any fever or chills. Related Data Home Medications Medication Instructions Recorded Confirmed pantoprazole 40 mg tablet,delayed 40 mg PO BID 09/13/22 10/11/22 release sucralfate 1 gram tablet 1 g PO DAILY PRN Constipation 10/11/22 10/11/22 Allergies Allergy/AdvReac Type Severity Reaction Status Date / Time latex Allergy Mild RASH-CONDOMS Verified 10/11/22 14:58 AND GLOVES clindamycin Allergy Hives Verified 10/11/22 14:58 gadobenic acid Allergy Hives Verified 10/11/22 14:58 [From contrast - MRI] iohexol Allergy Hives Verified 10/11/22 14:58 [From contrast - CT, X-RAY] lubiprostone [From Amitiza] Allergy Itching Verified 10/11/22 14:58 propoxyphene Allergy Other Verified 10/11/22 14:58 [From Darvocet-N 100] acetaminophen AdvReac Other Verified 10/11/22 14:58 amoxicillin AdvReac Chest Pain Verified 10/11/22 14:58 codeine AdvReac Nausea and Verified 10/11/22 14:58 Vomiting hydrocodone AdvReac Other Verified 10/11/22 14:58 ketorolac [From Toradol] AdvReac Palpitation Verified 10/11/22 14:58 s levofloxacin [From Levaquin] AdvReac Chest Pain Verified 10/11/22 14:58 nitrofurantoin AdvReac Chest Pain Verified 10/11/22 14:58 [From Macrobid] paroxetine [From Paxil] AdvReac Other Verified 10/11/22 14:58 Penicillins AdvReac Chest Pain Verified 10/11/22 14:58 Sulfa (Sulfonamide AdvReac Chest Pain Verified 10/11/22 14:58 Antibiotics) vancomycin AdvReac Chest Pain Verified 10/11/22 14:58 Review of Systems Review of Systems: Pertinent positives per HPI. Patient denies any fever, chills, rash, headache, visual changes, dizziness, cough, runny nose, sore throat, shortness of breath, chest pain, palpitations, nausea, vomiting, diarrhea, constipation, abdominal pain PMFSH Past Medical History Medical History Anxiety Bronchitis Constipation Depression Family history of malignant neoplasm of colon in father Genitourinary disorder Interstitial cystitis, urethral dilation GERD (gastroesophageal reflux disease) Interstitial cystitis Irritable bowel syndrome Irritable bowel syndrome with constipation Mitral valve prolapse Right hand fracture Urinary tract infection Vaginal delivery Surgical History Surgical History H/O hemorrhoidectomy H/O sinus surgery H/O tubal ligation H/O umbilical hernia repair History of facial surgery Nasal reconstruction History of hysterectomy History of orthopedic surgery Right knee, trigger release finger left hand History of tonsillectomy History of urinary tract surgery Family History Family History Grandparent Diabetes mellitus, Onset Age: 200 Cerebrovascular accident, Onset Age: 200 Father Family history of elevated blood lipids Carcinoma of colon Family history of coronary artery disease, Onset Age: 201 Patient's father is Grandparent Family history of malignant neoplasm Diabetes mellitus Cerebrovascular accident Hypertension Family history of cardiovascular disease Father Family history of congestive heart failure Patient's father is Hypertension Carcinoma of colon Family history of emphysema Family history of cardiovascular disease Sibling Hypertension Grandparent Diabetes mellitus Social History Social History (Reviewed 10/11/22
== END 2022-10-11 15:40 | disposition home or self-care (01) ==
PROVIDERS: Emergency Provider Nurse Practitioner Family
DX: R30.0 Dysuria (principal); K21.9 Gastro-esophageal reflux disease without esophagitis; Z87.891 Personal history of nicotine dependence
CPT/HCPCS: 81003; 87086; 99213; G0463

== ENCOUNTER 2022-10-13 15:00 | Emergency (ER) | payer SELFPAY ==
[2022-10-13 15:13] VITALS: BP 130/93; PULSE 74; RESP 20; TEMP 36.6; O2SAT 100
--- NOTE | 2022-10-13 16:41 | ED.FEMALEGU ---
HPI - Female Genitourinary General Chief complaint: Urogenital-Female Stated complaint: frequent urination Source: patient Mode of arrival: ambulatory Limitations: no limitations History of Present Illness HPI Narrative: 47-year-old female presents to [facility] for complaints of bladder spasms and urinary frequency for the past 2 days. Patient has been evaluated here on 09/19/2022, 09/23/2022, 09/30/2022, 10/08/2022 and 10/11/2022 for similar symptoms. Patient reports that she was recently started on constipation medications and feels like this might have caused her urinary tract infections. Patient denies fever, rigors, chills, nausea vomiting or diarrhea MD elicited complaint: UTI Pertinent past history: other (hx of IC) Onset (ago): day(s) (2) Exacerbating factors: none Relieving factors: none Related Data Home Medications Medication Instructions Recorded Confirmed pantoprazole 40 mg tablet,delayed 40 mg PO BID 09/13/22 10/13/22 release sucralfate 1 gram tablet 1 g PO DAILY PRN Constipation 10/11/22 10/13/22 amitriptyline 10 mg tablet 10 mg PO DAILY 10/13/22 10/13/22 peg 3350-electrolytes 236 240 ml PO DAILY PRN Constipation 10/13/22 10/13/22 gram-22.74 gram-6.74 gram-5.86 gram solution (GaviLyte-G) tramadol 50 mg tablet 50 mg PO TID PRN Pain 10/13/22 10/13/22 Allergies Allergy/AdvReac Type Severity Reaction Status Date / Time latex Allergy Mild RASH-CONDOMS Verified 10/13/22 16:08 AND GLOVES clindamycin Allergy Hives Verified 10/13/22 16:08 gadobenic acid Allergy Hives Verified 10/13/22 16:08 [From contrast - MRI] iohexol Allergy Hives Verified 10/13/22 16:08 [From contrast - CT, X-RAY] lubiprostone [From Amitiza] Allergy Itching Verified 10/13/22 16:08 propoxyphene Allergy Other Verified 10/13/22 16:08 [From Darvocet-N 100] acetaminophen AdvReac Other Verified 10/13/22 16:08 amoxicillin AdvReac Chest Pain Verified 10/13/22 16:08 codeine AdvReac Nausea and Verified 10/13/22 16:08 Vomiting hydrocodone AdvReac Other Verified 10/13/22 16:08 ketorolac [From Toradol] AdvReac Palpitation Verified 10/13/22 16:08 s levofloxacin [From Levaquin] AdvReac Chest Pain Verified 10/13/22 16:08 nitrofurantoin AdvReac Chest Pain Verified 10/13/22 16:08 [From Macrobid] paroxetine [From Paxil] AdvReac Other Verified 10/13/22 16:08 Penicillins AdvReac Chest Pain Verified 10/13/22 16:08 Sulfa (Sulfonamide AdvReac Chest Pain Verified 10/13/22 16:08 Antibiotics) vancomycin AdvReac Chest Pain Verified 10/13/22 16:08 Review of Systems Constitutional: Constitutional: Denies chills and Denies fatigue ENT: Denies vertigo and Denies dizziness Respiratory: Respiratory: Denies cough, Denies dyspnea and Denies wheezing Gastrointestinal: Gastrointestinal: Denies diarrhea, Denies nausea and Denies vomiting Genitourinary: Genitourinary: Denies abnormal vaginal bleeding, Denies hematuria, Reports nocturia, Denies genital lesions, Reports dysuria, Denies pelvic pain, Denies flank pain, Denies urinary incontinence and Denies vaginal discharge Musculoskeletal: Musculoskeletal: Denies arthralgias and Denies joint swelling Integumentary/Breasts: Skin/Breast: Denies rash Allergic/Immunologic: Allergic/Immunologic: Denies lip swelling, Denies throat swelling, Denies tongue swelling and Denies wheezing PMFSH Past Medical History Medical History Anxiety Bronchitis Constipation Depression Family history of malignant neoplasm of colon in father Genitourinary disorder Interstitial cystitis, urethral dilation GERD (gastroesophageal reflux disease) Interstitial cystitis Irritable bowel syndrome Irritable bowel syndrome with constipation Mitral valve prolapse Right hand fracture Urinary tract infection Vaginal delivery Surgical History Surgical History H/O hemorrhoidecto
== END 2022-10-13 16:50 | disposition home or self-care (01) ==
PROVIDERS: Emergency Provider Nurse Practitioner Family
DX: R35.0 Frequency of micturition (principal); Z87.891 Personal history of nicotine dependence; K21.9 Gastro-esophageal reflux disease without esophagitis; I34.1 Nonrheumatic mitral (valve) prolapse; F41.9 Anxiety disorder, unspecified; F32.A Depression, unspecified
CPT/HCPCS: 81003; 99212; G0463

== ENCOUNTER 2022-10-14 18:14 | Emergency (ER) | payer SELFPAY ==
[2022-10-14 18:26] VITALS: BP 129/88; PULSE 85; RESP 20; TEMP 36.6; O2SAT 100
--- NOTE | 2022-10-14 19:28 | ED.FEMALEGU ---
HPI - Female Genitourinary General Chief complaint: Urogenital-Female Stated complaint: urine check Time Seen by Provider: 10/14/22 19:28 Source: patient, RN notes reviewed and old records reviewed Mode of arrival: ambulatory Limitations: no limitations History of Present Illness HPI Narrative: 47-year-old female presents to the [facility] with complaints of abdominal spasming. Has been taking GoLYTELY and states that she just wants to make sure she does not have a UTI. has been seen multiple times in the last week for the same symptoms. Related Data Home Medications Medication Instructions Recorded Confirmed pantoprazole 40 mg tablet,delayed 40 mg PO BID 09/13/22 10/13/22 release sucralfate 1 gram tablet 1 g PO DAILY PRN Constipation 10/11/22 10/13/22 amitriptyline 10 mg tablet 10 mg PO DAILY 10/13/22 10/13/22 peg 3350-electrolytes 236 240 ml PO DAILY PRN Constipation 10/13/22 10/13/22 gram-22.74 gram-6.74 gram-5.86 gram solution (GaviLyte-G) tramadol 50 mg tablet 50 mg PO TID PRN Pain 10/13/22 10/13/22 Allergies Allergy/AdvReac Type Severity Reaction Status Date / Time latex Allergy Mild RASH-CONDOMS Verified 10/13/22 16:08 AND GLOVES clindamycin Allergy Hives Verified 10/13/22 16:08 gadobenic acid Allergy Hives Verified 10/13/22 16:08 [From contrast - MRI] iohexol Allergy Hives Verified 10/13/22 16:08 [From contrast - CT, X-RAY] lubiprostone [From Amitiza] Allergy Itching Verified 10/13/22 16:08 propoxyphene Allergy Other Verified 10/13/22 16:08 [From Darvocet-N 100] acetaminophen AdvReac Other Verified 10/13/22 16:08 amoxicillin AdvReac Chest Pain Verified 10/13/22 16:08 codeine AdvReac Nausea and Verified 10/13/22 16:08 Vomiting hydrocodone AdvReac Other Verified 10/13/22 16:08 ketorolac [From Toradol] AdvReac Palpitation Verified 10/13/22 16:08 s levofloxacin [From Levaquin] AdvReac Chest Pain Verified 10/13/22 16:08 nitrofurantoin AdvReac Chest Pain Verified 10/13/22 16:08 [From Macrobid] paroxetine [From Paxil] AdvReac Other Verified 10/13/22 16:08 Penicillins AdvReac Chest Pain Verified 10/13/22 16:08 Sulfa (Sulfonamide AdvReac Chest Pain Verified 10/13/22 16:08 Antibiotics) vancomycin AdvReac Chest Pain Verified 10/13/22 16:08 Review of Systems Review of Systems: All systems reviewed & are unremarkable except as noted in HPI and below Constitutional: Constitutional: Reports no additional constitutional complaints, Denies body ache(s), Denies chills, Denies fever(s) and Denies headache(s) Eyes: Eyes: Reports no additional eye complaints ENT: Reports system reviewed and no additional complaints, except as documented and Denies headache(s) Cardiovascular: Cardiovascular: Reports no additional cardiovascular complaints, Denies chest pain and Denies dyspnea Respiratory: Respiratory: Reports no additional respiratory complaints and Denies dyspnea Gastrointestinal: Gastrointestinal: Reports no additional gastrointestinal complaints and Denies abdominal pain Genitourinary: Genitourinary: Reports as per HPI Musculoskeletal: Musculoskeletal: Reports no additional musculoskeletal complaints Integumentary/Breasts: Skin/Breast: Reports system reviewed and no additional complaints, except as docu Neurologic: Reports system reviewed and no additional complaints, except as documented and Denies headache(s) Psychiatric: Psychiatric: Reports no additional psychiatric complaints Allergic/Immunologic: Allergic/Immunologic: Reports no additional allergic/immunologic complaints PMFSH Past Medical History Medical History Anxiety Bronchitis Constipation Depression Family history of malignant neoplasm of colon in father Genitourinary disorder Interstitial cystitis, urethral dilation GERD (gastroesophageal reflux disease) Interstitial cystitis Irritable bowel syndrome Irritable bowel syndrome with
== END 2022-10-14 19:39 | disposition home or self-care (01) ==
PROVIDERS: Emergency Provider Nurse Practitioner
DX: R25.2 Cramp and spasm (principal); K58.9 Irritable bowel syndrome, unspecified; R35.0 Frequency of micturition; Z87.891 Personal history of nicotine dependence
CPT/HCPCS: 81003; 99212; G0463

== ENCOUNTER 2022-10-19 14:55 | Emergency (ER) | payer SELFPAY ==
[2022-10-19 15:05] VITALS: BP 131/91; PULSE 70; RESP 18; TEMP 36.8; O2SAT 100
--- NOTE | 2022-10-19 15:36 | ED.FEMALEGU ---
HPI - Female Genitourinary General Chief complaint: Urogenital-Female Stated complaint: urine check Time Seen by Provider: 10/19/22 15:37 Source: patient and RN notes reviewed History of Present Illness HPI Narrative: patient is a 47-year-old female who has chronic interstitial cystitis who reports to the Urgent Care for a urine check Due to chronic left-sided abdominal bloating/pains. Patient has not been symptomatic for any UTI. No other acute complaints. No acute distress noted. Patient aware of the plan of care. Some parts of this dictation were generated by voice recognition software and may contain typographical and/or grammatical inaccuracies. Related Data Home Medications Medication Instructions Recorded Confirmed pantoprazole 40 mg tablet,delayed 40 mg PO BID 09/13/22 10/19/22 release sucralfate 1 gram tablet 1 g PO DAILY PRN Constipation 10/11/22 10/19/22 amitriptyline 10 mg tablet 10 mg PO DAILY 10/13/22 10/19/22 peg 3350-electrolytes 236 240 ml PO DAILY PRN Constipation 10/13/22 10/19/22 gram-22.74 gram-6.74 gram-5.86 gram solution (GaviLyte-G) tramadol 50 mg tablet 50 mg PO TID PRN Pain 10/13/22 10/19/22 Allergies Allergy/AdvReac Type Severity Reaction Status Date / Time latex Allergy Mild RASH-CONDOMS Verified 10/19/22 15:11 AND GLOVES clindamycin Allergy Hives Verified 10/19/22 15:11 gadobenic acid Allergy Hives Verified 10/19/22 15:11 [From contrast - MRI] iohexol Allergy Hives Verified 10/19/22 15:11 [From contrast - CT, X-RAY] lubiprostone [From Amitiza] Allergy Itching Verified 10/19/22 15:11 propoxyphene Allergy Other Verified 10/19/22 15:11 [From Darvocet-N 100] acetaminophen AdvReac Other Verified 10/19/22 15:11 amoxicillin AdvReac Chest Pain Verified 10/19/22 15:11 codeine AdvReac Nausea and Verified 10/19/22 15:11 Vomiting hydrocodone AdvReac Other Verified 10/19/22 15:11 ketorolac [From Toradol] AdvReac Palpitation Verified 10/19/22 15:11 s levofloxacin [From Levaquin] AdvReac Chest Pain Verified 10/19/22 15:11 nitrofurantoin AdvReac Chest Pain Verified 10/19/22 15:11 [From Macrobid] paroxetine [From Paxil] AdvReac Other Verified 10/19/22 15:11 Penicillins AdvReac Chest Pain Verified 10/19/22 15:11 Sulfa (Sulfonamide AdvReac Chest Pain Verified 10/19/22 15:11 Antibiotics) vancomycin AdvReac Chest Pain Verified 10/19/22 15:11 Review of Systems Review of Systems: CONSTITUTIONAL: Denies fever, chills, or sweats. EYES: Denies visual changes, redness, or discharge. ENT: Denies rhinorrhea, congestion, sore throat, or otalgia. CARDIOVASCULAR: Denies chest pain, palpitations, or edema. RESPIRATORY: Denies cough or dyspnea. GASTROINTESTINAL: Denies abdominal pain, nausea, vomiting, or diarrhea. GENITOURINARY: Chronic interstitial cystitis with recurrent UTIs SKIN: Denies rash or itching. MUSCULOSKELETAL: Denies back pain, joint pain, or myalgia. NEUROLOGIC: Denies headache, numbness, or weakness. All other systems reviewed are negative, except as documented in HPI. [facility] Past Medical History Medical History Anxiety Bronchitis Constipation Depression Family history of malignant neoplasm of colon in father Genitourinary disorder Interstitial cystitis, urethral dilation GERD (gastroesophageal reflux disease) Interstitial cystitis Irritable bowel syndrome Irritable bowel syndrome with constipation Mitral valve prolapse Right hand fracture Urinary tract infection Vaginal delivery Surgical History Surgical History H/O hemorrhoidectomy H/O sinus surgery H/O tubal ligation H/O umbilical hernia repair History of facial surgery Nasal reconstruction History of hysterectomy History of orthopedic surgery Right knee, trigger release finger left hand History of tonsillectomy History of urinary tract surgery Famil
== END 2022-10-19 16:00 | disposition home or self-care (01) ==
PROVIDERS: Emergency Provider Nurse Practitioner Family
DX: N30.10 Interstitial cystitis (chronic) without hematuria (principal); Z87.891 Personal history of nicotine dependence; K21.9 Gastro-esophageal reflux disease without esophagitis; I34.1 Nonrheumatic mitral (valve) prolapse; F32.A Depression, unspecified
CPT/HCPCS: 81003; 87086; 99213; G0463

== ENCOUNTER 2022-10-21 09:48 | Emergency (ER) | payer OTHER, SELFPAY ==
[2022-10-21 09:54] VITALS: BP 126/88; PULSE 72; RESP 14; TEMP 36.6; O2SAT 100
--- NOTE | 2022-10-21 10:16 | ED.FEMALEGU ---
HPI - Female Genitourinary General Chief complaint: Urogenital-Female Stated complaint: urine check Time Seen by Provider: 10/21/22 10:19 History of Present Illness HPI Narrative: Patient well known to this Urgent Care with same complaints. Patient presents with chronic cystitis. Patient was here less than 2 days ago with negative urine culture negative urine. Patient presents today with the same symptoms. Patient denies any vaginal discharge no flank pain no gross hematuria. Related Data Home Medications Medication Instructions Recorded Confirmed pantoprazole 40 mg tablet,delayed 40 mg PO BID 09/13/22 10/19/22 release sucralfate 1 gram tablet 1 g PO DAILY PRN Constipation 10/11/22 10/19/22 amitriptyline 10 mg tablet 10 mg PO DAILY 10/13/22 10/19/22 peg 3350-electrolytes 236 240 ml PO DAILY PRN Constipation 10/13/22 10/19/22 gram-22.74 gram-6.74 gram-5.86 gram solution (GaviLyte-G) tramadol 50 mg tablet 50 mg PO TID PRN Pain 10/13/22 10/19/22 plecanatide 3 mg tablet (Trulance) mg 10/21/22 Allergies Allergy/AdvReac Type Severity Reaction Status Date / Time latex Allergy Mild RASH-CONDOMS Verified 10/19/22 15:11 AND GLOVES clindamycin Allergy Hives Verified 10/19/22 15:11 gadobenic acid Allergy Hives Verified 10/19/22 15:11 [From contrast - MRI] iohexol Allergy Hives Verified 10/19/22 15:11 [From contrast - CT, X-RAY] lubiprostone [From Amitiza] Allergy Itching Verified 10/19/22 15:11 propoxyphene Allergy Other Verified 10/19/22 15:11 [From Darvocet-N 100] acetaminophen AdvReac Other Verified 10/19/22 15:11 amoxicillin AdvReac Chest Pain Verified 10/19/22 15:11 codeine AdvReac Nausea and Verified 10/19/22 15:11 Vomiting hydrocodone AdvReac Other Verified 10/19/22 15:11 ketorolac [From Toradol] AdvReac Palpitation Verified 10/19/22 15:11 s levofloxacin [From Levaquin] AdvReac Chest Pain Verified 10/19/22 15:11 nitrofurantoin AdvReac Chest Pain Verified 10/19/22 15:11 [From Macrobid] paroxetine [From Paxil] AdvReac Other Verified 10/19/22 15:11 Penicillins AdvReac Chest Pain Verified 10/19/22 15:11 Sulfa (Sulfonamide AdvReac Chest Pain Verified 10/19/22 15:11 Antibiotics) vancomycin AdvReac Chest Pain Verified 10/19/22 15:11 Review of Systems Review of Systems: CONSTITUTIONAL: Denies fever, chills, or sweats. EYES: Denies visual changes, redness, or discharge. ENT: Denies rhinorrhea, congestion, sore throat, or otalgia. CARDIOVASCULAR: Denies chest pain, palpitations, or edema. RESPIRATORY: Denies cough or dyspnea. GASTROINTESTINAL: Denies abdominal pain, nausea, vomiting, or diarrhea. GENITOURINARY: Denies dysuria or hematuria. SKIN: Denies rash or itching. MUSCULOSKELETAL: Denies back pain, joint pain, or myalgia. NEUROLOGIC: Denies headache, numbness, or weakness. PSYCHIATRIC: Denies anxiety or depression. [facility] Past Medical History Medical History Anxiety Bronchitis Constipation Depression Family history of malignant neoplasm of colon in father Genitourinary disorder Interstitial cystitis, urethral dilation GERD (gastroesophageal reflux disease) Interstitial cystitis Irritable bowel syndrome Irritable bowel syndrome with constipation Mitral valve prolapse Right hand fracture Urinary tract infection Vaginal delivery Surgical History Surgical History H/O hemorrhoidectomy H/O sinus surgery H/O tubal ligation H/O umbilical hernia repair History of facial surgery Nasal reconstruction History of hysterectomy History of orthopedic surgery Right knee, trigger release finger left hand History of tonsillectomy History of urinary tract surgery Family History Family History Grandparent Diabetes mellitus, Onset Age: 200 Cerebrovascular accident, Onset Age: 200 Father
== END 2022-10-21 10:26 | disposition home or self-care (01) ==
PROVIDERS: Emergency Provider Nurse Practitioner Family
DX: N30.20 Other chronic cystitis without hematuria (principal); Z87.891 Personal history of nicotine dependence; K21.9 Gastro-esophageal reflux disease without esophagitis; I34.1 Nonrheumatic mitral (valve) prolapse; F32.A Depression, unspecified
CPT/HCPCS: 81003; 99212; G0463

== ENCOUNTER 2022-10-25 10:46 | Emergency (ER) | payer OTHER, SELFPAY ==
[2022-10-25 10:52] VITALS: BP 127/89; PULSE 75; RESP 16; TEMP 36.2; O2SAT 100
--- NOTE | 2022-10-25 10:59 | ED.FEMALEGU ---
HPI - Female Genitourinary General Chief complaint: Urogenital-Female Stated complaint: urnine check Time Seen by Provider: 10/25/22 11:16 Source: patient and RN notes reviewed Mode of arrival: ambulatory Limitations: no limitations History of Present Illness HPI Narrative: 47-year-old female with history of interstitial cystitis and IBS presents with concerns of blood bladder spasms and urine frequency. She reports she has the appointment with her urologist in a few weeks. She denies dysuria, fever, aches chills, sweats. MD elicited complaint: UTI Related Data Home Medications Medication Instructions Recorded Confirmed pantoprazole 40 mg tablet,delayed 40 mg PO BID 09/13/22 10/19/22 release sucralfate 1 gram tablet 1 g PO DAILY PRN Constipation 10/11/22 10/19/22 amitriptyline 10 mg tablet 10 mg PO DAILY 10/13/22 10/19/22 tramadol 50 mg tablet 50 mg PO TID PRN Pain 10/13/22 10/19/22 plecanatide 3 mg tablet (Trulance) mg 10/21/22 Allergies Allergy/AdvReac Type Severity Reaction Status Date / Time latex Allergy Mild RASH-CONDOMS Verified 10/25/22 11:07 AND GLOVES clindamycin Allergy Hives Verified 10/25/22 11:07 gadobenic acid Allergy Hives Verified 10/25/22 11:07 [From contrast - MRI] iohexol Allergy Hives Verified 10/25/22 11:07 [From contrast - CT, X-RAY] lubiprostone [From Amitiza] Allergy Itching Verified 10/25/22 11:07 propoxyphene Allergy Other Verified 10/25/22 11:07 [From Darvocet-N 100] acetaminophen AdvReac Other Verified 10/25/22 11:07 amoxicillin AdvReac Chest Pain Verified 10/25/22 11:07 codeine AdvReac Nausea and Verified 10/25/22 11:07 Vomiting hydrocodone AdvReac Other Verified 10/25/22 11:07 ketorolac [From Toradol] AdvReac Palpitation Verified 10/25/22 11:07 s levofloxacin [From Levaquin] AdvReac Chest Pain Verified 10/25/22 11:07 nitrofurantoin AdvReac Chest Pain Verified 10/25/22 11:07 [From Macrobid] paroxetine [From Paxil] AdvReac Other Verified 10/25/22 11:07 Penicillins AdvReac Chest Pain Verified 10/25/22 11:07 Sulfa (Sulfonamide AdvReac Chest Pain Verified 10/25/22 11:07 Antibiotics) vancomycin AdvReac Chest Pain Verified 10/25/22 11:07 Review of Systems Review of Systems: CONSTITUTIONAL: Denies malaise, chills, sweats, or fever. CARDIOVASCULAR: Denies chest pain, palpitations, or edema. RESPIRATORY: Denies cough or dyspnea. GASTROINTESTINAL: Denies abdominal pain, nausea, vomiting, diarrhea GENITOURINARY: Reports urine frequency and urgency. Denies dysuria, suprapubic pressure. Denies flank pain or hematuria. SKIN: Denies rash or itching. MUSCULOSKELETAL: Denies back pain or myalgia. All systems reviewed & are unremarkable except as noted in HPI and below PMFSH Past Medical History Medical History Anxiety Bronchitis Constipation Depression Family history of malignant neoplasm of colon in father Genitourinary disorder Interstitial cystitis, urethral dilation GERD (gastroesophageal reflux disease) Interstitial cystitis Irritable bowel syndrome Irritable bowel syndrome with constipation Mitral valve prolapse Right hand fracture Urinary tract infection Vaginal delivery Surgical History Surgical History H/O hemorrhoidectomy H/O sinus surgery H/O tubal ligation H/O umbilical hernia repair History of facial surgery Nasal reconstruction History of hysterectomy History of orthopedic surgery Right knee, trigger release finger left hand History of tonsillectomy History of urinary tract surgery Family History Family History Grandparent Diabetes mellitus, Onset Age: 200 Cerebrovascular accident, Onset Age: 200 Father Family history of elevated blood lipids Carcinoma of colon Family history of coronary artery disease, Onset Age:
== END 2022-10-25 11:30 | disposition home or self-care (01) ==
PROVIDERS: Emergency Provider Nurse Practitioner
DX: R35.0 Frequency of micturition (principal); Z87.891 Personal history of nicotine dependence
CPT/HCPCS: 81003; 99212; G0463

== ENCOUNTER 2022-10-28 16:41 | Emergency (ER) | payer OTHER, SELFPAY ==
[2022-10-28 16:46] VITALS: BP 119/84; PULSE 88; RESP 16; TEMP 36.5; O2SAT 99
--- NOTE | 2022-10-28 17:17 | ED.FEMALEGU ---
HPI - Female Genitourinary General Chief complaint: Urogenital-Female Stated complaint: urine check Time Seen by Provider: 10/28/22 17:24 Source: patient and RN notes reviewed Mode of arrival: ambulatory Limitations: no limitations History of Present Illness HPI Narrative: 47-year-old female presents with concern for low back pain, urinary frequency for up to 2 weeks. Patient was seen 3 days ago and had a negative urine that time. She reports she has an appointment with her urologist on the . MD elicited complaint: UTI Related Data Home Medications Medication Instructions Recorded Confirmed pantoprazole 40 mg tablet,delayed 40 mg PO BID 09/13/22 10/28/22 release sucralfate 1 gram tablet 1 g PO DAILY PRN Constipation 10/11/22 10/28/22 amitriptyline 10 mg tablet 10 mg PO DAILY 10/13/22 10/28/22 tramadol 50 mg tablet 50 mg PO TID PRN Pain 10/13/22 10/28/22 plecanatide 3 mg tablet (Trulance) 3 mg PO DAILY 10/21/22 10/28/22 Allergies Allergy/AdvReac Type Severity Reaction Status Date / Time latex Allergy Mild RASH-CONDOMS Verified 10/25/22 11:07 AND GLOVES clindamycin Allergy Hives Verified 10/25/22 11:07 gadobenic acid Allergy Hives Verified 10/25/22 11:07 [From contrast - MRI] iohexol Allergy Hives Verified 10/25/22 11:07 [From contrast - CT, X-RAY] lubiprostone [From Amitiza] Allergy Itching Verified 10/25/22 11:07 propoxyphene Allergy Other Verified 10/25/22 11:07 [From Darvocet-N 100] acetaminophen AdvReac Other Verified 10/25/22 11:07 amoxicillin AdvReac Chest Pain Verified 10/25/22 11:07 codeine AdvReac Nausea and Verified 10/25/22 11:07 Vomiting hydrocodone AdvReac Other Verified 10/25/22 11:07 ketorolac [From Toradol] AdvReac Palpitation Verified 10/25/22 11:07 s levofloxacin [From Levaquin] AdvReac Chest Pain Verified 10/25/22 11:07 nitrofurantoin AdvReac Chest Pain Verified 10/25/22 11:07 [From Macrobid] paroxetine [From Paxil] AdvReac Other Verified 10/25/22 11:07 Penicillins AdvReac Chest Pain Verified 10/25/22 11:07 Sulfa (Sulfonamide AdvReac Chest Pain Verified 10/25/22 11:07 Antibiotics) vancomycin AdvReac Chest Pain Verified 10/25/22 11:07 Review of Systems Review of Systems: CONSTITUTIONAL: Denies malaise, chills, sweats, or fever. CARDIOVASCULAR: Denies chest pain, palpitations, or edema. RESPIRATORY: Denies cough or dyspnea. GASTROINTESTINAL: Denies abdominal pain, nausea, vomiting, diarrhea GENITOURINARY: Reports frequenc,. Denies dysuria urgency, suprapubic pressure. Denies flank pain or hematuria. SKIN: Denies rash or itching. MUSCULOSKELETAL: Reports low back pain All systems reviewed & are unremarkable except as noted in HPI and below PMFSH Past Medical History Medical History Anxiety Bronchitis Constipation Depression Family history of malignant neoplasm of colon in father Genitourinary disorder Interstitial cystitis, urethral dilation GERD (gastroesophageal reflux disease) Interstitial cystitis Irritable bowel syndrome Irritable bowel syndrome with constipation Mitral valve prolapse Right hand fracture Urinary tract infection Vaginal delivery Surgical History Surgical History H/O hemorrhoidectomy H/O sinus surgery H/O tubal ligation H/O umbilical hernia repair History of facial surgery Nasal reconstruction History of hysterectomy History of orthopedic surgery Right knee, trigger release finger left hand History of tonsillectomy History of urinary tract surgery Family History Family History Grandparent Diabetes mellitus, Onset Age: 200 Cerebrovascular accident, Onset Age: 200 Father Family history of elevated blood lipids Carcinoma of colon Family history of coronary artery disease, Onset Age: 201 Patient's father i
== END 2022-10-28 17:37 | disposition home or self-care (01) ==
PROVIDERS: Emergency Provider Nurse Practitioner
DX: R35.0 Frequency of micturition (principal); Z87.891 Personal history of nicotine dependence; K21.9 Gastro-esophageal reflux disease without esophagitis; I34.1 Nonrheumatic mitral (valve) prolapse; F32.A Depression, unspecified
CPT/HCPCS: 81003; 99212; G0463

== ENCOUNTER 2022-11-02 08:05 | Emergency (ER) | payer OTHER, SELFPAY ==
[2022-11-02 08:12] VITALS: BP 120/83; PULSE 69; RESP 20; TEMP 36.7; O2SAT 100
--- NOTE | 2022-11-02 08:22 | ED.GENADULT ---
HPI - General Adult General Chief complaint: Urogenital-Female Stated complaint: urine check Source: patient Mode of arrival: ambulatory Limitations: no limitations History of Present Illness HPI narrative: Patient presents for evaluation of urinary symptoms for last 2 days. Symptoms include urinary frequency and ?bladder spasms?. She denies any fever chills, nausea, vomiting, abdominal pain, low back pain, hematuria, dysuria, vaginal bleeding or discharge. She has a history of recurrent urinary tract infections and interstitial cystitis. She is scheduled to see Urology in the coming months. No additional complaints or concerns. Related Data Home Medications Medication Instructions Recorded Confirmed pantoprazole 40 mg tablet,delayed 40 mg PO BID 09/13/22 10/28/22 release sucralfate 1 gram tablet 1 g PO DAILY PRN Constipation 10/11/22 10/28/22 amitriptyline 10 mg tablet 10 mg PO DAILY 10/13/22 10/28/22 tramadol 50 mg tablet 50 mg PO TID PRN Pain 10/13/22 10/28/22 plecanatide 3 mg tablet (Trulance) 3 mg PO DAILY 10/21/22 10/28/22 Allergies Allergy/AdvReac Type Severity Reaction Status Date / Time latex Allergy Mild RASH-CONDOMS Verified 11/02/22 08:14 AND GLOVES clindamycin Allergy Hives Verified 11/02/22 08:14 gadobenic acid Allergy Hives Verified 11/02/22 08:14 [From contrast - MRI] iohexol Allergy Hives Verified 11/02/22 08:14 [From contrast - CT, X-RAY] lubiprostone [From Amitiza] Allergy Itching Verified 11/02/22 08:14 propoxyphene Allergy Other Verified 11/02/22 08:14 [From Darvocet-N 100] acetaminophen AdvReac Other Verified 11/02/22 08:14 amoxicillin AdvReac Chest Pain Verified 11/02/22 08:14 codeine AdvReac Nausea and Verified 11/02/22 08:14 Vomiting hydrocodone AdvReac Other Verified 11/02/22 08:14 ketorolac [From Toradol] AdvReac Palpitation Verified 11/02/22 08:14 s levofloxacin [From Levaquin] AdvReac Chest Pain Verified 11/02/22 08:14 nitrofurantoin AdvReac Chest Pain Verified 11/02/22 08:14 [From Macrobid] paroxetine [From Paxil] AdvReac Other Verified 11/02/22 08:14 Penicillins AdvReac Chest Pain Verified 11/02/22 08:14 Sulfa (Sulfonamide AdvReac Chest Pain Verified 11/02/22 08:14 Antibiotics) vancomycin AdvReac Chest Pain Verified 11/02/22 08:14 Review of Systems Review of Systems: CONSTITUTIONAL: Denies fever, chills, or sweats. EYES: Denies visual changes, redness, or discharge. ENT: Denies rhinorrhea, congestion, sore throat, or otalgia. CARDIOVASCULAR: Denies chest pain, palpitations, or edema. RESPIRATORY: Denies cough or dyspnea. GASTROINTESTINAL: Denies abdominal pain, nausea, vomiting, or diarrhea. GENITOURINARY: Reports urinary frequency and ?bladder spasms?. Denies hematuria, dysuria SKIN: Denies rash or itching. MUSCULOSKELETAL: Denies back pain, joint pain, or myalgia. NEUROLOGIC: Denies headache, numbness, dizziness, or weakness. PSYCHIATRIC: Denies anxiety or depression. [facility] Past Medical History Medical History Anxiety Bronchitis Constipation Depression Family history of malignant neoplasm of colon in father Genitourinary disorder Interstitial cystitis, urethral dilation GERD (gastroesophageal reflux disease) Interstitial cystitis Irritable bowel syndrome Irritable bowel syndrome with constipation Mitral valve prolapse Right hand fracture Urinary tract infection Vaginal delivery Surgical History Surgical History H/O hemorrhoidectomy H/O sinus surgery H/O tubal ligation H/O umbilical hernia repair History of facial surgery Nasal reconstruction History of hysterectomy History of orthopedic surgery Right knee, trigger release finger left hand History of tonsillectomy History of urinary tract surgery Family History Family History Gran
== END 2022-11-02 08:22 | disposition home or self-care (01) ==
PROVIDERS: Emergency Provider Nurse Practitioner
DX: R35.0 Frequency of micturition (principal); N30.10 Interstitial cystitis (chronic) without hematuria; Z87.440 Personal history of urinary (tract) infections; Z87.891 Personal history of nicotine dependence; K21.9 Gastro-esophageal reflux disease without esophagitis; I34.1 Nonrheumatic mitral (valve) prolapse
CPT/HCPCS: 81003; 87086; 99213; G0463

== ENCOUNTER 2022-11-05 10:21 | Emergency (ER) | payer OTHER, SELFPAY ==
[2022-11-05 10:38] VITALS: BP 139/88; PULSE 82; RESP 16; TEMP 36.4; O2SAT 100
--- NOTE | 2022-11-05 11:44 | ED.FEMALEGU ---
HPI - Female Genitourinary General Chief complaint: Urogenital-Female Stated complaint: Urinary Problem Time Seen by Provider: 11/05/22 11:41 Source: patient and RN notes reviewed Mode of arrival: ambulatory Limitations: no limitations History of Present Illness HPI Narrative: 47-year-old female presents with concern for bladder spasms and burning with urination. This is a chronic problem, patient is seen multiple times a week to ?have her urine checked?. Patient reports she has a follow-up with her urologist, on an unknown date. Patient denies fever, aches, chills, sweats, back pain or abdominal pain. MD elicited complaint: dysuria Related Data Home Medications Medication Instructions Recorded Confirmed pantoprazole 40 mg tablet,delayed 40 mg PO BID 09/13/22 10/28/22 release sucralfate 1 gram tablet 1 g PO DAILY PRN Constipation 10/11/22 10/28/22 amitriptyline 10 mg tablet 10 mg PO DAILY 10/13/22 10/28/22 tramadol 50 mg tablet 50 mg PO TID PRN Pain 10/13/22 10/28/22 plecanatide 3 mg tablet (Trulance) 3 mg PO DAILY 10/21/22 10/28/22 Allergies Allergy/AdvReac Type Severity Reaction Status Date / Time latex Allergy Mild RASH-CONDOMS Verified 11/02/22 08:14 AND GLOVES clindamycin Allergy Hives Verified 11/02/22 08:14 gadobenic acid Allergy Hives Verified 11/02/22 08:14 [From contrast - MRI] iohexol Allergy Hives Verified 11/02/22 08:14 [From contrast - CT, X-RAY] lubiprostone [From Amitiza] Allergy Itching Verified 11/02/22 08:14 propoxyphene Allergy Other Verified 11/02/22 08:14 [From Darvocet-N 100] acetaminophen AdvReac Other Verified 11/02/22 08:14 amoxicillin AdvReac Chest Pain Verified 11/02/22 08:14 codeine AdvReac Nausea and Verified 11/02/22 08:14 Vomiting hydrocodone AdvReac Other Verified 11/02/22 08:14 ketorolac [From Toradol] AdvReac Palpitation Verified 11/02/22 08:14 s levofloxacin [From Levaquin] AdvReac Chest Pain Verified 11/02/22 08:14 nitrofurantoin AdvReac Chest Pain Verified 11/02/22 08:14 [From Macrobid] paroxetine [From Paxil] AdvReac Other Verified 11/02/22 08:14 Penicillins AdvReac Chest Pain Verified 11/02/22 08:14 Sulfa (Sulfonamide AdvReac Chest Pain Verified 11/02/22 08:14 Antibiotics) vancomycin AdvReac Chest Pain Verified 11/02/22 08:14 Review of Systems Review of Systems: CONSTITUTIONAL: Denies malaise, chills, sweats, or fever. CARDIOVASCULAR: Denies chest pain, palpitations, or edema. RESPIRATORY: Denies cough or dyspnea. GASTROINTESTINAL: Denies abdominal pain, nausea, vomiting, diarrhea GENITOURINARY: Reports dysuria, bladder spasms, frequency, urgency, suprapubic pressure. Denies flank pain or hematuria. SKIN: Denies rash or itching. MUSCULOSKELETAL: Denies back pain or myalgia. All systems reviewed & are unremarkable except as noted in HPI and below PMFSH Past Medical History Medical History Anxiety Bronchitis Constipation Depression Family history of malignant neoplasm of colon in father Genitourinary disorder Interstitial cystitis, urethral dilation GERD (gastroesophageal reflux disease) Interstitial cystitis Irritable bowel syndrome Irritable bowel syndrome with constipation Mitral valve prolapse Right hand fracture Urinary tract infection Vaginal delivery Surgical History Surgical History H/O hemorrhoidectomy H/O sinus surgery H/O tubal ligation H/O umbilical hernia repair History of facial surgery Nasal reconstruction History of hysterectomy History of orthopedic surgery Right knee, trigger release finger left hand History of tonsillectomy History of urinary tract surgery Family History Family History Grandparent Diabetes mellitus, Onset Age: 200 Cerebrovascular accident, Onset Age: 200 Father
== END 2022-11-05 11:55 | disposition home or self-care (01) ==
PROVIDERS: Emergency Provider Nurse Practitioner
DX: N30.10 Interstitial cystitis (chronic) without hematuria (principal); Z87.891 Personal history of nicotine dependence
CPT/HCPCS: 81003; 99212; G0463

== ENCOUNTER 2022-11-06 13:28 | Emergency (ER) | payer OTHER, SELFPAY ==
[2022-11-06 13:41] VITALS: BP 125/84; PULSE 81; RESP 16; TEMP 36.7; O2SAT 100
--- NOTE | 2022-11-06 14:35 | ED.FEMALEGU ---
HPI - Female Genitourinary General Chief complaint: Urogenital-Female Stated complaint: FREQUENT URINATION Time Seen by Provider: 11/06/22 14:30 Source: patient, RN notes reviewed and old records reviewed Mode of arrival: ambulatory Limitations: no limitations History of Present Illness HPI Narrative: 47 year old female who presents to express care with complaints of urinary frequencyand feeling like she is not emptying. Patient reports that she has appointment with bladder doctor at [facility] on the november, reports that she will probably have to be dilated because she has been having spasms. Patient was just in [place] [facility] yesterday for similar complaints. Asked patient if she ever gets testing strips OTC states that she just can't read them. MD elicited complaint: dysuria (urinary frequency and feel like not emptying) Pertinent past history: interstitial cystits Onset (ago): day(s) (today) Related Data Home Medications Medication Instructions Recorded Confirmed pantoprazole 40 mg tablet,delayed 40 mg PO BID 09/13/22 10/28/22 release sucralfate 1 gram tablet 1 g PO DAILY PRN Constipation 10/11/22 10/28/22 amitriptyline 10 mg tablet 10 mg PO DAILY 10/13/22 10/28/22 tramadol 50 mg tablet 50 mg PO TID PRN Pain 10/13/22 10/28/22 plecanatide 3 mg tablet (Trulance) 3 mg PO DAILY 10/21/22 10/28/22 Allergies Allergy/AdvReac Type Severity Reaction Status Date / Time latex Allergy Mild RASH-CONDOMS Verified 11/06/22 14:57 AND GLOVES clindamycin Allergy Hives Verified 11/06/22 14:57 gadobenic acid Allergy Hives Verified 11/06/22 14:57 [From contrast - MRI] iohexol Allergy Hives Verified 11/06/22 14:57 [From contrast - CT, X-RAY] lubiprostone [From Amitiza] Allergy Itching Verified 11/06/22 14:57 propoxyphene Allergy Other Verified 11/06/22 14:57 [From Darvocet-N 100] acetaminophen AdvReac Other Verified 11/06/22 14:57 amoxicillin AdvReac Chest Pain Verified 11/06/22 14:57 codeine AdvReac Nausea and Verified 11/06/22 14:57 Vomiting hydrocodone AdvReac Other Verified 11/06/22 14:57 ketorolac [From Toradol] AdvReac Palpitation Verified 11/06/22 14:57 s levofloxacin [From Levaquin] AdvReac Chest Pain Verified 11/06/22 14:57 nitrofurantoin AdvReac Chest Pain Verified 11/06/22 14:57 [From Macrobid] paroxetine [From Paxil] AdvReac Other Verified 11/06/22 14:57 Penicillins AdvReac Chest Pain Verified 11/06/22 14:57 Sulfa (Sulfonamide AdvReac Chest Pain Verified 11/06/22 14:57 Antibiotics) vancomycin AdvReac Chest Pain Verified 11/06/22 14:57 Review of Systems Review of Systems: CONSTITUTIONAL: Denies fever, chills, or sweats. CARDIOVASCULAR: Denies chest pain, palpitations, or edema. RESPIRATORY: Denies cough or dyspnea. GASTROINTESTINAL: Denies abdominal pain, nausea, vomiting, or diarrhea. GENITOURINARY: Reports frequency, feels like she isn't emptying her bladder. Denies flank pain or hematuria. SKIN: Denies rash or itching. MUSCULOSKELETAL: Denies back pain or myalgia. Denies CVA tenderness NEUROLOGIC: Denies headache All systems reviewed & are unremarkable except as noted in HPI and below PMFSH Past Medical History Medical History Anxiety Bronchitis Constipation Depression Family history of malignant neoplasm of colon in father Genitourinary disorder Interstitial cystitis, urethral dilation GERD (gastroesophageal reflux disease) Interstitial cystitis Irritable bowel syndrome Irritable bowel syndrome with constipation Mitral valve prolapse Right hand fracture Urinary tract infection Vaginal delivery Surgical History Surgical History H/O hemorrhoidectomy H/O sinus surgery H/O tubal ligation H/O umbilical hernia repair History of facial surgery Nasal reconstruction History of hysterectomy History of orthopedic surgery Right knee, fe
== END 2022-11-06 14:46 | disposition home or self-care (01) ==
PROVIDERS: Emergency Provider Registered Nurse
DX: N30.10 Interstitial cystitis (chronic) without hematuria (principal); Z87.891 Personal history of nicotine dependence; K21.9 Gastro-esophageal reflux disease without esophagitis; I34.1 Nonrheumatic mitral (valve) prolapse
CPT/HCPCS: 81003; 99212; G0463

== ENCOUNTER 2022-11-07 10:12 | Emergency (ER) | payer OTHER, SELFPAY ==
--- NOTE | 2022-11-07 10:13 | ED.FEMALEGU ---
HPI - Female Genitourinary General Chief complaint: Urogenital-Female Stated complaint: Urinary Problem Time Seen by Provider: 11/07/22 10:13 Source: patient and RN notes reviewed History of Present Illness HPI Narrative: patient is a 47-year-old female who presents to urgent care with complaints of bladder spasms. Patient states he started 1 week ago, improved and then worsened again after flaring up her IBS with chocolate. Patient had her urine cultured on October 06 of October 19 and November 02 in all cultures were negative for bacteria. Patient denies any other symptoms. No other acute complaints. No acute distress noted. Patient aware of the plan of care. Some parts of this dictation were generated by voice recognition software and may contain typographical and/or grammatical inaccuracies. Related Data Home Medications Medication Instructions Recorded Confirmed pantoprazole 40 mg tablet,delayed 40 mg PO BID 09/13/22 11/07/22 release sucralfate 1 gram tablet 1 g PO DAILY PRN Constipation 10/11/22 11/07/22 amitriptyline 10 mg tablet 10 mg PO DAILY 10/13/22 11/07/22 tramadol 50 mg tablet 50 mg PO TID PRN Pain 10/13/22 11/07/22 plecanatide 3 mg tablet (Trulance) 3 mg PO DAILY 10/21/22 11/07/22 Allergies Allergy/AdvReac Type Severity Reaction Status Date / Time latex Allergy Mild RASH-CONDOMS Verified 11/06/22 14:57 AND GLOVES clindamycin Allergy Hives Verified 11/06/22 14:57 gadobenic acid Allergy Hives Verified 11/06/22 14:57 [From contrast - MRI] iohexol Allergy Hives Verified 11/06/22 14:57 [From contrast - CT, X-RAY] lubiprostone [From Amitiza] Allergy Itching Verified 11/06/22 14:57 propoxyphene Allergy Other Verified 11/06/22 14:57 [From Darvocet-N 100] acetaminophen AdvReac Other Verified 11/06/22 14:57 amoxicillin AdvReac Chest Pain Verified 11/06/22 14:57 codeine AdvReac Nausea and Verified 11/06/22 14:57 Vomiting hydrocodone AdvReac Other Verified 11/06/22 14:57 ketorolac [From Toradol] AdvReac Palpitation Verified 11/06/22 14:57 s levofloxacin [From Levaquin] AdvReac Chest Pain Verified 11/06/22 14:57 nitrofurantoin AdvReac Chest Pain Verified 11/06/22 14:57 [From Macrobid] paroxetine [From Paxil] AdvReac Other Verified 11/06/22 14:57 Penicillins AdvReac Chest Pain Verified 11/06/22 14:57 Sulfa (Sulfonamide AdvReac Chest Pain Verified 11/06/22 14:57 Antibiotics) vancomycin AdvReac Chest Pain Verified 11/06/22 14:57 Review of Systems Review of Systems: CONSTITUTIONAL: Denies fever, chills, or sweats. EYES: Denies visual changes, redness, or discharge. ENT: Denies rhinorrhea, congestion, sore throat, or otalgia. CARDIOVASCULAR: Denies chest pain, palpitations, or edema. RESPIRATORY: Denies cough or dyspnea. GASTROINTESTINAL: Denies abdominal pain, nausea, vomiting, or diarrhea. GENITOURINARY: Denies dysuria or hematuria. reports of bladder spasms SKIN: Denies rash or itching. MUSCULOSKELETAL: Denies back pain, joint pain, or myalgia. NEUROLOGIC: Denies headache, numbness, or weakness. All other systems reviewed are negative, except as documented in HPI. [facility] Past Medical History Medical History Anxiety Bronchitis Constipation Depression Family history of malignant neoplasm of colon in father Genitourinary disorder Interstitial cystitis, urethral dilation GERD (gastroesophageal reflux disease) Interstitial cystitis Irritable bowel syndrome Irritable bowel syndrome with constipation Mitral valve prolapse Right hand fracture Urinary tract infection Vaginal delivery Surgical History Surgical History H/O hemorrhoidectomy H/O sinus surgery H/O tubal ligation H/O umbilical hernia repair History of facial surgery Nasal reconstruction History of hysterectomy History of orthopedic surgery Right knee, trigger release fi
[2022-11-07 10:18] VITALS: BP 131/91; PULSE 76; RESP 16; TEMP 36.8; O2SAT 100
== END 2022-11-07 10:49 | disposition home or self-care (01) ==
PROVIDERS: Emergency Provider Nurse Practitioner Family
DX: N30.90 Cystitis, unspecified without hematuria (principal); Z87.891 Personal history of nicotine dependence
CPT/HCPCS: 81003; 87086; 99213; G0463

== ENCOUNTER 2022-11-11 08:00 | Emergency (ER) | payer OTHER, SELFPAY ==
[2022-11-11 08:05] VITALS: BP 111/79; PULSE 65; RESP 16; TEMP 36.2; O2SAT 98
--- NOTE | 2022-11-11 08:11 | ED.EAR ---
HPI - Ear Problem General Chief complaint: Ear Stated complaint: ear pain Time Seen by Provider: 11/11/22 08:11 Source: patient, RN notes reviewed and old records reviewed Mode of arrival: ambulatory Limitations: no limitations History of Present Illness HPI Narrative: 47-year-old female who presents to [facility] with complaints right-sided sinus pain with face throbbing, right ear hurting with symptoms starting this morning when she woke up. Patient has not tried any [id number] medications for her symptoms. Patient denies any fevers, chills or sweats or any body aches MD Complaint: ear pain and other (sinus pain right ) Location: right ear Duration: constant Treatment prior to arrival: none Related Data Home Medications Medication Instructions Recorded Confirmed pantoprazole 40 mg tablet,delayed 40 mg PO BID 09/13/22 11/14/22 release sucralfate 1 gram tablet 1 g PO DAILY PRN Constipation 10/11/22 11/14/22 amitriptyline 10 mg tablet 10 mg PO DAILY 10/13/22 11/14/22 tramadol 50 mg tablet 50 mg PO TID PRN Pain 10/13/22 11/14/22 plecanatide 3 mg tablet (Trulance) 3 mg PO DAILY 10/21/22 11/14/22 Allergies Allergy/AdvReac Type Severity Reaction Status Date / Time latex Allergy Mild RASH-CONDOMS Verified 11/14/22 13:09 AND GLOVES clindamycin Allergy Hives Verified 11/14/22 13:09 gadobenic acid Allergy Hives Verified 11/14/22 13:09 [From contrast - MRI] iohexol Allergy Hives Verified 11/14/22 13:09 [From contrast - CT, X-RAY] lubiprostone [From Amitiza] Allergy Itching Verified 11/14/22 13:09 propoxyphene Allergy Other Verified 11/14/22 13:09 [From Darvocet-N 100] acetaminophen AdvReac Other Verified 11/14/22 13:09 amoxicillin AdvReac Chest Pain Verified 11/14/22 13:09 codeine AdvReac Nausea and Verified 11/14/22 13:09 Vomiting hydrocodone AdvReac Other Verified 11/14/22 13:09 ketorolac [From Toradol] AdvReac Palpitation Verified 11/14/22 13:09 s levofloxacin [From Levaquin] AdvReac Chest Pain Verified 11/14/22 13:09 nitrofurantoin AdvReac Chest Pain Verified 11/14/22 13:09 [From Macrobid] paroxetine [From Paxil] AdvReac Other Verified 11/14/22 13:09 Penicillins AdvReac Chest Pain Verified 11/14/22 13:09 Sulfa (Sulfonamide AdvReac Chest Pain Verified 11/14/22 13:09 Antibiotics) vancomycin AdvReac Chest Pain Verified 11/14/22 13:09 Review of Systems Review of Systems: CONSTITUTIONAL: Denies malaise, chills, sweats, or fever. EYES: Denies visual changes, redness, or discharge. ENT: Reports rhinorrhea, congestion, sinus pain, right otalgia, no sore throat. CARDIOVASCULAR: Denies chest pain, palpitations, or edema. RESPIRATORY: Reports cough.? Denies dyspnea. GASTROINTESTINAL: Denies abdominal pain, nausea, vomiting, diarrhea SKIN: Denies rash or itching. MUSCULOSKELETAL: Denies myalgia. NEUROLOGIC: Denies headache. All systems reviewed & are unremarkable except as noted in HPI and below PMFSH Past Medical History Medical History Anxiety Bronchitis Constipation Depression Family history of malignant neoplasm of colon in father Genitourinary disorder Interstitial cystitis, urethral dilation GERD (gastroesophageal reflux disease) Interstitial cystitis Irritable bowel syndrome Irritable bowel syndrome with constipation Mitral valve prolapse Right hand fracture Urinary tract infection Vaginal delivery Surgical History Surgical History H/O hemorrhoidectomy H/O sinus surgery H/O tubal ligation H/O umbilical hernia repair History of facial surgery Nasal reconstruction History of hysterectomy History of orthopedic surgery Right knee, trigger release finger left hand History of tonsillectomy History of urinary tract surgery Family History Family History Grandparent Dece
== END 2022-11-11 08:31 | disposition home or self-care (01) ==
PROVIDERS: Emergency Provider Registered Nurse
DX: J06.9 Acute upper respiratory infection, unspecified (principal); Z87.891 Personal history of nicotine dependence; K21.9 Gastro-esophageal reflux disease without esophagitis; I34.1 Nonrheumatic mitral (valve) prolapse; F32.A Depression, unspecified
CPT/HCPCS: 99213; G0463

== ENCOUNTER 2022-11-14 12:49 | Emergency (ER) | payer OTHER, SELFPAY ==
--- NOTE | 2022-11-14 12:51 | ED.BACK ---
HPI - Back Pain/Injury General Chief Complaint: Urogenital-Female Stated Complaint: Low Back Pain Time Seen by Provider: 11/14/22 12:51 Source: patient and RN notes reviewed History of Present Illness HPI Narrative: patient is a 47-year-old female who presents to urgent care with complaints of low back pain for the last 2 weeks. Patient is unsure if it is due to her chronic UTI/cystitis or possible IBS with constipation. Patient denies any urinary symptoms. Patient has not taken anything [id number] for her symptoms. No other acute complaints. No acute distress noted. Patient aware of the plan of care. Some parts of this dictation were generated by voice recognition software and may contain typographical and/or grammatical inaccuracies. Related Data Home Medications Medication Instructions Recorded Confirmed pantoprazole 40 mg tablet,delayed 40 mg PO BID 09/13/22 11/07/22 release sucralfate 1 gram tablet 1 g PO DAILY PRN Constipation 10/11/22 11/07/22 amitriptyline 10 mg tablet 10 mg PO DAILY 10/13/22 11/07/22 tramadol 50 mg tablet 50 mg PO TID PRN Pain 10/13/22 11/07/22 plecanatide 3 mg tablet (Trulance) 3 mg PO DAILY 10/21/22 11/07/22 Allergies Allergy/AdvReac Type Severity Reaction Status Date / Time latex Allergy Mild RASH-CONDOMS Verified 11/14/22 13:09 AND GLOVES clindamycin Allergy Hives Verified 11/14/22 13:09 gadobenic acid Allergy Hives Verified 11/14/22 13:09 [From contrast - MRI] iohexol Allergy Hives Verified 11/14/22 13:09 [From contrast - CT, X-RAY] lubiprostone [From Amitiza] Allergy Itching Verified 11/14/22 13:09 propoxyphene Allergy Other Verified 11/14/22 13:09 [From Darvocet-N 100] acetaminophen AdvReac Other Verified 11/14/22 13:09 amoxicillin AdvReac Chest Pain Verified 11/14/22 13:09 codeine AdvReac Nausea and Verified 11/14/22 13:09 Vomiting hydrocodone AdvReac Other Verified 11/14/22 13:09 ketorolac [From Toradol] AdvReac Palpitation Verified 11/14/22 13:09 s levofloxacin [From Levaquin] AdvReac Chest Pain Verified 11/14/22 13:09 nitrofurantoin AdvReac Chest Pain Verified 11/14/22 13:09 [From Macrobid] paroxetine [From Paxil] AdvReac Other Verified 11/14/22 13:09 Penicillins AdvReac Chest Pain Verified 11/14/22 13:09 Sulfa (Sulfonamide AdvReac Chest Pain Verified 11/14/22 13:09 Antibiotics) vancomycin AdvReac Chest Pain Verified 11/14/22 13:09 Review of Systems Review of Systems: CONSTITUTIONAL: Denies fever, chills, or sweats. EYES: Denies visual changes, redness, or discharge. ENT: Denies rhinorrhea, congestion, sore throat, or otalgia. CARDIOVASCULAR: Denies chest pain, palpitations, or edema. RESPIRATORY: Denies cough or dyspnea. GASTROINTESTINAL: Denies abdominal pain, nausea, vomiting, or diarrhea. GENITOURINARY: Denies dysuria or hematuria. SKIN: Denies rash or itching. MUSCULOSKELETAL: Reports of low back pain NEUROLOGIC: Denies headache, numbness, or weakness. All other systems reviewed are negative, except as documented in HPI. [facility] Past Medical History Medical History Anxiety Bronchitis Constipation Depression Family history of malignant neoplasm of colon in father Genitourinary disorder Interstitial cystitis, urethral dilation GERD (gastroesophageal reflux disease) Interstitial cystitis Irritable bowel syndrome Irritable bowel syndrome with constipation Mitral valve prolapse Right hand fracture Urinary tract infection Vaginal delivery Surgical History Surgical History H/O hemorrhoidectomy H/O sinus surgery H/O tubal ligation H/O umbilical hernia repair History of facial surgery Nasal reconstruction History of hysterectomy History of orthopedic surgery Right knee, trigger release finger left hand History of tonsillectomy History of urinary tract surgery Family History Family His
[2022-11-14 12:59] VITALS: BP 111/78; PULSE 80; RESP 16; TEMP 36.5; O2SAT 100
== END 2022-11-14 13:17 | disposition home or self-care (01) ==
PROVIDERS: Emergency Provider Nurse Practitioner Family
DX: M54.50 Low back pain, unspecified (principal); Z87.891 Personal history of nicotine dependence; K21.9 Gastro-esophageal reflux disease without esophagitis; I34.1 Nonrheumatic mitral (valve) prolapse; F32.A Depression, unspecified
CPT/HCPCS: 81003; 87086; 99213; G0463

== ENCOUNTER 2022-11-20 17:36 | Emergency (ER) | payer OTHER, SELFPAY ==
[2022-11-20 17:46] VITALS: BP 118/87; PULSE 81; RESP 14; TEMP 36.8; O2SAT 98
--- NOTE | 2022-11-20 17:51 | ED.FEMALEGU ---
HPI - Female Genitourinary General Chief complaint: Urogenital-Female Stated complaint: urine Check Time Seen by Provider: 11/20/22 17:45 Source: patient and RN notes reviewed History of Present Illness HPI Narrative: patient is a 47-year-old female who presents to urgent care with complaints of urinary frequency that started this morning. Patient has no other urinary symptoms. Denies any fever, chills, nausea, vomiting, abdominal pain. No other acute complaints. No acute distress noted. Patient aware of the plan of care. Some parts of this dictation were generated by voice recognition software and may contain typographical and/or grammatical inaccuracies. Related Data Home Medications Medication Instructions Recorded Confirmed pantoprazole 40 mg tablet,delayed 40 mg PO BID 09/13/22 11/20/22 release sucralfate 1 gram tablet 1 g PO DAILY PRN Constipation 10/11/22 11/20/22 amitriptyline 10 mg tablet 10 mg PO DAILY 10/13/22 11/20/22 tramadol 50 mg tablet 50 mg PO TID PRN Pain 10/13/22 11/20/22 plecanatide 3 mg tablet (Trulance) 3 mg PO DAILY 10/21/22 11/20/22 Allergies Allergy/AdvReac Type Severity Reaction Status Date / Time latex Allergy Mild RASH-CONDOMS Verified 11/20/22 17:49 AND GLOVES clindamycin Allergy Hives Verified 11/20/22 17:49 gadobenic acid Allergy Hives Verified 11/20/22 17:49 [From contrast - MRI] iohexol Allergy Hives Verified 11/20/22 17:49 [From contrast - CT, X-RAY] lubiprostone [From Amitiza] Allergy Itching Verified 11/20/22 17:49 propoxyphene Allergy Other Verified 11/20/22 17:49 [From Darvocet-N 100] acetaminophen AdvReac Other Verified 11/20/22 17:49 amoxicillin AdvReac Chest Pain Verified 11/20/22 17:49 codeine AdvReac Nausea and Verified 11/20/22 17:49 Vomiting hydrocodone AdvReac Other Verified 11/20/22 17:49 ketorolac [From Toradol] AdvReac Palpitation Verified 11/20/22 17:49 s levofloxacin [From Levaquin] AdvReac Chest Pain Verified 11/20/22 17:49 nitrofurantoin AdvReac Chest Pain Verified 11/20/22 17:49 [From Macrobid] paroxetine [From Paxil] AdvReac Other Verified 11/20/22 17:49 Penicillins AdvReac Chest Pain Verified 11/20/22 17:49 Sulfa (Sulfonamide AdvReac Chest Pain Verified 11/20/22 17:49 Antibiotics) vancomycin AdvReac Chest Pain Verified 11/20/22 17:49 Review of Systems Review of Systems: CONSTITUTIONAL: Denies fever, chills, or sweats. EYES: Denies visual changes, redness, or discharge. ENT: Denies rhinorrhea, congestion, sore throat, or otalgia. CARDIOVASCULAR: Denies chest pain, palpitations, or edema. RESPIRATORY: Denies cough or dyspnea. GASTROINTESTINAL: Denies abdominal pain, nausea, vomiting, or diarrhea. GENITOURINARY: Reports of urinary frequency SKIN: Denies rash or itching. MUSCULOSKELETAL: Denies back pain, joint pain, or myalgia. NEUROLOGIC: Denies headache, numbness, or weakness. All other systems reviewed are negative, except as documented in HPI. [facility] Past Medical History Medical History Anxiety Bronchitis Constipation Depression Family history of malignant neoplasm of colon in father Genitourinary disorder Interstitial cystitis, urethral dilation GERD (gastroesophageal reflux disease) Interstitial cystitis Irritable bowel syndrome Irritable bowel syndrome with constipation Mitral valve prolapse Right hand fracture Urinary tract infection Vaginal delivery Surgical History Surgical History H/O hemorrhoidectomy H/O sinus surgery H/O tubal ligation H/O umbilical hernia repair History of facial surgery Nasal reconstruction History of hysterectomy History of orthopedic surgery Right knee, trigger release finger left hand History of tonsillectomy History of urinary tract surgery Family History Family History Grandparent
== END 2022-11-20 18:14 | disposition home or self-care (01) ==
PROVIDERS: Emergency Provider Nurse Practitioner Family
DX: N30.10 Interstitial cystitis (chronic) without hematuria (principal); Z87.891 Personal history of nicotine dependence; K21.9 Gastro-esophageal reflux disease without esophagitis; I34.1 Nonrheumatic mitral (valve) prolapse; F32.A Depression, unspecified
CPT/HCPCS: 81003; 87086; 87088; 99213; G0463

== ENCOUNTER 2022-11-25 11:03 | Emergency (ER) | payer OTHER, SELFPAY ==
[2022-11-25 11:09] VITALS: BP 121/81; PULSE 81; RESP 16; TEMP 36.6; O2SAT 100
--- NOTE | 2022-11-25 12:08 | ED.FEMALEGU ---
HPI - Female Genitourinary General Chief complaint: Urogenital-Female Stated complaint: Urinary Problem Time Seen by Provider: 11/25/22 12:08 Source: patient, RN notes reviewed and old records reviewed Mode of arrival: ambulatory Limitations: no limitations History of Present Illness HPI Narrative: 47 year old female who presents to express care with complaints of urinary spasm and wants her urine checked for infection today, Patient reports that she is suppose to go to bladder specialist on and wanted to make sure her urine was clear. Patient always has elevated specific gravity and patient is always instructed to drink more water. Patient states that she saw GI doctor Santiago and they did testing on her GI tract for possible H Pylori and celiac disease since she is still loosing weight. MD elicited complaint: other (bladder spasms and flank pain) Related Data Home Medications Medication Instructions Recorded Confirmed pantoprazole 40 mg tablet,delayed 40 mg PO BID 09/13/22 11/20/22 release sucralfate 1 gram tablet 1 g PO DAILY PRN Constipation 10/11/22 11/20/22 amitriptyline 10 mg tablet 10 mg PO DAILY 10/13/22 11/20/22 tramadol 50 mg tablet 50 mg PO TID PRN Pain 10/13/22 11/20/22 plecanatide 3 mg tablet (Trulance) 3 mg PO DAILY 10/21/22 11/20/22 Allergies Allergy/AdvReac Type Severity Reaction Status Date / Time latex Allergy Mild RASH-CONDOMS Verified 11/20/22 17:49 AND GLOVES clindamycin Allergy Hives Verified 11/20/22 17:49 gadobenic acid Allergy Hives Verified 11/20/22 17:49 [From contrast - MRI] iohexol Allergy Hives Verified 11/20/22 17:49 [From contrast - CT, X-RAY] lubiprostone [From Amitiza] Allergy Itching Verified 11/20/22 17:49 propoxyphene Allergy Other Verified 11/20/22 17:49 [From Darvocet-N 100] acetaminophen AdvReac Other Verified 11/20/22 17:49 amoxicillin AdvReac Chest Pain Verified 11/20/22 17:49 codeine AdvReac Nausea and Verified 11/20/22 17:49 Vomiting hydrocodone AdvReac Other Verified 11/20/22 17:49 ketorolac [From Toradol] AdvReac Palpitation Verified 11/20/22 17:49 s levofloxacin [From Levaquin] AdvReac Chest Pain Verified 11/20/22 17:49 nitrofurantoin AdvReac Chest Pain Verified 11/20/22 17:49 [From Macrobid] paroxetine [From Paxil] AdvReac Other Verified 11/20/22 17:49 Penicillins AdvReac Chest Pain Verified 11/20/22 17:49 Sulfa (Sulfonamide AdvReac Chest Pain Verified 11/20/22 17:49 Antibiotics) vancomycin AdvReac Chest Pain Verified 11/20/22 17:49 Review of Systems Review of Systems: CONSTITUTIONAL: Denies fever, chills, or sweats. CARDIOVASCULAR: Denies chest pain, palpitations, or edema. RESPIRATORY: Denies cough or dyspnea. GASTROINTESTINAL: Denies abdominal pain, nausea, vomiting, or diarrhea. GENITOURINARY: Reports urinary spasms, no frequency, urgency. Denies flank pain or hematuria. SKIN: Denies rash or itching. MUSCULOSKELETAL: Denies back pain or myalgia. Reports some CVA tenderness NEUROLOGIC: Denies headache All systems reviewed & are unremarkable except as noted in HPI and below PMFSH Past Medical History Medical History Anxiety Bronchitis Constipation Depression Family history of malignant neoplasm of colon in father Genitourinary disorder Interstitial cystitis, urethral dilation GERD (gastroesophageal reflux disease) Interstitial cystitis Irritable bowel syndrome Irritable bowel syndrome with constipation Mitral valve prolapse Right hand fracture Urinary tract infection Vaginal delivery Surgical History Surgical History H/O hemorrhoidectomy H/O sinus surgery H/O tubal ligation H/O umbilical hernia repair History of facial surgery Nasal reconstruction History of hysterectomy History of orthopedic surgery Right knee, trigger release finger left hand History of tonsillectomy Histor
== END 2022-11-25 12:28 | disposition home or self-care (01) ==
PROVIDERS: Emergency Provider Registered Nurse
DX: R30.0 Dysuria (principal); Z87.891 Personal history of nicotine dependence; K21.9 Gastro-esophageal reflux disease without esophagitis; I34.1 Nonrheumatic mitral (valve) prolapse; F32.A Depression, unspecified
CPT/HCPCS: 81003; 99212; G0463

== ENCOUNTER 2022-11-30 08:41 | Emergency (ER) | payer OTHER, SELFPAY ==
[2022-11-30 08:46] VITALS: BP 123/75; PULSE 70; RESP 14; TEMP 36.7; O2SAT 100
--- NOTE | 2022-11-30 08:59 | ED.FEMALEGU ---
HPI - Female Genitourinary General Chief complaint: Urogenital-Female Stated complaint: urine check Time Seen by Provider: 11/30/22 08:59 History of Present Illness HPI Narrative: PATIENT [facility] AND PRESENTS TODAY WITH FLANK PAIN. PATIENT DENIES ANY BURNING WITH URINATION DENIES ANY ABDOMINAL PAIN NO CONCERN FOR STDS. PATIENT IS SCHEDULED FOR A URINARY TEST IN 3 DAYS. PATIENT DOES FOLLOW WITH A UROLOGIST. Related Data Home Medications Medication Instructions Recorded Confirmed No Home Medications 11/30/22 11/30/22 Allergies Allergy/AdvReac Type Severity Reaction Status Date / Time latex Allergy Mild RASH-CONDOMS Verified 11/30/22 08:47 AND GLOVES clindamycin Allergy Hives Verified 11/30/22 08:47 gadobenic acid Allergy Hives Verified 11/30/22 08:47 [From contrast - MRI] iohexol Allergy Hives Verified 11/30/22 08:47 [From contrast - CT, X-RAY] lubiprostone [From Amitiza] Allergy Itching Verified 11/30/22 08:47 propoxyphene Allergy Other Verified 11/30/22 08:47 [From Darvocet-N 100] acetaminophen AdvReac Other Verified 11/30/22 08:47 amoxicillin AdvReac Chest Pain Verified 11/30/22 08:47 codeine AdvReac Nausea and Verified 11/30/22 08:47 Vomiting hydrocodone AdvReac Other Verified 11/30/22 08:47 ketorolac [From Toradol] AdvReac Palpitation Verified 11/30/22 08:47 s levofloxacin [From Levaquin] AdvReac Chest Pain Verified 11/30/22 08:47 nitrofurantoin AdvReac Chest Pain Verified 11/30/22 08:47 [From Macrobid] paroxetine [From Paxil] AdvReac Other Verified 11/30/22 08:47 Penicillins AdvReac Chest Pain Verified 11/30/22 08:47 Sulfa (Sulfonamide AdvReac Chest Pain Verified 11/30/22 08:47 Antibiotics) vancomycin AdvReac Chest Pain Verified 11/30/22 08:47 Review of Systems Review of Systems: CONSTITUTIONAL: DENIES FEVER, CHILLS, OR SWEATS. EYES: DENIES VISUAL CHANGES, REDNESS, OR DISCHARGE. ENT: DENIES RHINORRHEA, CONGESTION, SORE THROAT, OR OTALGIA. CARDIOVASCULAR: DENIES CHEST PAIN, PALPITATIONS, OR EDEMA. RESPIRATORY: DENIES COUGH OR DYSPNEA. GASTROINTESTINAL: DENIES ABDOMINAL PAIN, NAUSEA, VOMITING, OR DIARRHEA. GENITOURINARY: DENIES DYSURIA OR HEMATURIA. SKIN: DENIES RASH OR ITCHING. MUSCULOSKELETAL: DENIES BACK PAIN, JOINT PAIN, OR MYALGIA. NEUROLOGIC: DENIES HEADACHE, NUMBNESS, OR WEAKNESS. PSYCHIATRIC: DENIES ANXIETY OR DEPRESSION. [facility] Past Medical History Medical History Anxiety Bronchitis Constipation Depression Family history of malignant neoplasm of colon in father Genitourinary disorder Interstitial cystitis, urethral dilation GERD (gastroesophageal reflux disease) Interstitial cystitis Irritable bowel syndrome Irritable bowel syndrome with constipation Mitral valve prolapse Right hand fracture Urinary tract infection Vaginal delivery Surgical History Surgical History H/O hemorrhoidectomy H/O sinus surgery H/O tubal ligation H/O umbilical hernia repair History of facial surgery Nasal reconstruction History of hysterectomy History of orthopedic surgery Right knee, trigger release finger left hand History of tonsillectomy History of urinary tract surgery Family History Family History Grandparent Diabetes mellitus, Onset Age: 200 Cerebrovascular accident, Onset Age: 200 Father Family history of elevated blood lipids Carcinoma of colon Family history of coronary artery disease, Onset Age: 201 Patient's father is Grandparent Family history of malignant neoplasm Diabetes mellitus Cerebrovascular accident Hypertension Family history of cardiovascular disease Father Family history of congestive heart failure Patient's father is Hypertension Carcinoma of colon Family history of emp
== END 2022-11-30 09:07 | disposition home or self-care (01) ==
PROVIDERS: Emergency Provider Nurse Practitioner Family
DX: N32.9 Bladder disorder, unspecified (principal); K21.9 Gastro-esophageal reflux disease without esophagitis; Z87.891 Personal history of nicotine dependence
CPT/HCPCS: 81003; 87086; 87088; 99213; G0463

== ENCOUNTER 2022-12-03 08:14 | Emergency (ER) | payer OTHER, SELFPAY ==
[2022-12-03 08:22] VITALS: BP 110/79; PULSE 68; RESP 16; TEMP 37.2; O2SAT 100
--- NOTE | 2022-12-03 08:43 | ED.GENADULT ---
HPI - General Adult General Chief complaint: Urogenital-Female Stated complaint: uti Source: patient Mode of arrival: ambulatory Limitations: no limitations History of Present Illness HPI narrative: Patient presents requesting a urinalysis be performed. She has a history of IBS and interstitial cystitis. She has some chronic urinary symptoms. She has a planned SIBO test two days from now at [facility]. She is on a modified diet and states that she is unable to take any medications for two weeks surrounding the test. She wants to ensure she does not have a UTI as she has been waiting to have this test performed for several months. She reports urinary frequency which is unchanged from her baseline. She denies dysuria, hematuria, flank pain, fever, chills, nausea, vomiting. No additional complaints or concerns. Related Data Home Medications Medication Instructions Recorded Confirmed No Home Medications 11/30/22 12/03/22 Allergies Allergy/AdvReac Type Severity Reaction Status Date / Time latex Allergy Mild RASH-CONDOMS Verified 12/03/22 08:38 AND GLOVES clindamycin Allergy Hives Verified 12/03/22 08:38 gadobenic acid Allergy Hives Verified 12/03/22 08:38 [From contrast - MRI] iohexol Allergy Hives Verified 12/03/22 08:38 [From contrast - CT, X-RAY] lubiprostone [From Amitiza] Allergy Itching Verified 12/03/22 08:38 propoxyphene Allergy Other Verified 12/03/22 08:38 [From Darvocet-N 100] acetaminophen AdvReac Other Verified 12/03/22 08:38 amoxicillin AdvReac Chest Pain Verified 12/03/22 08:38 codeine AdvReac Nausea and Verified 12/03/22 08:38 Vomiting hydrocodone AdvReac Other Verified 12/03/22 08:38 ketorolac [From Toradol] AdvReac Palpitation Verified 12/03/22 08:38 s levofloxacin [From Levaquin] AdvReac Chest Pain Verified 12/03/22 08:38 nitrofurantoin AdvReac Chest Pain Verified 12/03/22 08:38 [From Macrobid] paroxetine [From Paxil] AdvReac Other Verified 12/03/22 08:38 Penicillins AdvReac Chest Pain Verified 12/03/22 08:38 Sulfa (Sulfonamide AdvReac Chest Pain Verified 12/03/22 08:38 Antibiotics) vancomycin AdvReac Chest Pain Verified 12/03/22 08:38 Review of Systems Review of Systems: CONSTITUTIONAL: Denies fever, chills, or sweats. EYES: Denies visual changes, redness, or discharge. ENT: Denies rhinorrhea, congestion, sore throat, or otalgia. CARDIOVASCULAR: Denies chest pain, palpitations, or edema. RESPIRATORY: Denies cough or dyspnea. GASTROINTESTINAL: Denies abdominal pain, nausea, vomiting, or diarrhea. GENITOURINARY: Reports urinary frequency unchanged from her baseline. Denies dysuria or hematuria. SKIN: Denies rash or itching. MUSCULOSKELETAL: Denies back pain, joint pain, or myalgia. NEUROLOGIC: Denies headache, numbness, dizziness, or weakness. PSYCHIATRIC: Denies anxiety or depression. [facility] Past Medical History Medical History Anxiety Bronchitis Constipation Depression Family history of malignant neoplasm of colon in father Genitourinary disorder Interstitial cystitis, urethral dilation GERD (gastroesophageal reflux disease) Interstitial cystitis Irritable bowel syndrome Irritable bowel syndrome with constipation Mitral valve prolapse Right hand fracture Urinary tract infection Vaginal delivery Surgical History Surgical History H/O hemorrhoidectomy H/O sinus surgery H/O tubal ligation H/O umbilical hernia repair History of facial surgery Nasal reconstruction History of hysterectomy History of orthopedic surgery Right knee, trigger release finger left hand History of tonsillectomy History of urinary tract surgery Family History Family History Grandparent Diabetes mellitus, Onset Age: 200 Cerebrovascular accident, Onset Age:
== END 2022-12-03 08:43 | disposition home or self-care (01) ==
PROVIDERS: Emergency Provider Nurse Practitioner
DX: N30.10 Interstitial cystitis (chronic) without hematuria (principal); Z87.891 Personal history of nicotine dependence; K21.9 Gastro-esophageal reflux disease without esophagitis; I34.1 Nonrheumatic mitral (valve) prolapse
CPT/HCPCS: 81003; 99212; G0463

== ENCOUNTER 2022-12-14 08:24 | Emergency (ER) | payer OTHER, SELFPAY ==
[2022-12-14 08:38] VITALS: BP 122/89; PULSE 79; RESP 16; TEMP 36.4; O2SAT 100
--- NOTE | 2022-12-14 08:57 | ED.FEMALEGU ---
HPI - Female Genitourinary General Chief complaint: Urogenital-Female Stated complaint: bladder check Time Seen by Provider: 12/14/22 08:57 History of Present Illness HPI Narrative: Patient presents today for a bladder check. Patient denies any urinary symptoms does have occasional burning with urination. Patient denies any flank pain no pelvic pain no suprapubic pain denies any gross hematuria. Patient states she just would like your check today. Patient is well-known to this urgent care and presents altered with urinary problems. Patient is scheduled to follow-up with her urologist as planned in 3-4 days for re-evaluation. Related Data Home Medications Medication Instructions Recorded Confirmed No Home Medications 11/30/22 12/14/22 Allergies Allergy/AdvReac Type Severity Reaction Status Date / Time latex Allergy Mild RASH-CONDOMS Verified 12/14/22 08:36 AND GLOVES clindamycin Allergy Hives Verified 12/14/22 08:36 gadobenic acid Allergy Hives Verified 12/14/22 08:36 [From contrast - MRI] iohexol Allergy Hives Verified 12/14/22 08:36 [From contrast - CT, X-RAY] lubiprostone [From Amitiza] Allergy Itching Verified 12/14/22 08:36 propoxyphene Allergy Other Verified 12/14/22 08:36 [From Darvocet-N 100] acetaminophen AdvReac Other Verified 12/14/22 08:36 amoxicillin AdvReac Chest Pain Verified 12/14/22 08:36 codeine AdvReac Nausea and Verified 12/14/22 08:36 Vomiting hydrocodone AdvReac Other Verified 12/14/22 08:36 ketorolac [From Toradol] AdvReac Palpitation Verified 12/14/22 08:36 s levofloxacin [From Levaquin] AdvReac Chest Pain Verified 12/14/22 08:36 nitrofurantoin AdvReac Chest Pain Verified 12/14/22 08:36 [From Macrobid] paroxetine [From Paxil] AdvReac Other Verified 12/14/22 08:36 Penicillins AdvReac Chest Pain Verified 12/14/22 08:36 Sulfa (Sulfonamide AdvReac Chest Pain Verified 12/14/22 08:36 Antibiotics) vancomycin AdvReac Chest Pain Verified 12/14/22 08:36 Review of Systems Review of Systems: CONSTITUTIONAL: Denies fever, chills, or sweats. EYES: Denies visual changes, redness, or discharge. ENT: Denies rhinorrhea, congestion, sore throat, or otalgia. CARDIOVASCULAR: Denies chest pain, palpitations, or edema. RESPIRATORY: Denies cough or dyspnea. GASTROINTESTINAL: Denies abdominal pain, nausea, vomiting, or diarrhea. GENITOURINARY: Denies dysuria or hematuria. SKIN: Denies rash or itching. MUSCULOSKELETAL: Denies back pain, joint pain, or myalgia. NEUROLOGIC: Denies headache, numbness, or weakness. PSYCHIATRIC: Denies anxiety or depression. [facility] Past Medical History Medical History Anxiety Bronchitis Constipation Depression Family history of malignant neoplasm of colon in father Genitourinary disorder Interstitial cystitis, urethral dilation GERD (gastroesophageal reflux disease) Interstitial cystitis Irritable bowel syndrome Irritable bowel syndrome with constipation Mitral valve prolapse Right hand fracture Urinary tract infection Vaginal delivery Surgical History Surgical History H/O hemorrhoidectomy H/O sinus surgery H/O tubal ligation H/O umbilical hernia repair History of facial surgery Nasal reconstruction History of hysterectomy History of orthopedic surgery Right knee, trigger release finger left hand History of tonsillectomy History of urinary tract surgery Family History Family History Grandparent Diabetes mellitus, Onset Age: 200 Cerebrovascular accident, Onset Age: 200 Father Family history of elevated blood lipids Carcinoma of colon Family history of coronary artery disease, Onset Age: 201 Patient's father is Grandparent Family history of malignant neoplasm Diabetes mellitus Cerebrovascular ac
== END 2022-12-14 08:58 | disposition home or self-care (01) ==
PROVIDERS: Emergency Provider Nurse Practitioner Family
DX: Z71.1 Person with feared health complaint in whom no diagnosis is made (principal); K21.9 Gastro-esophageal reflux disease without esophagitis; I34.1 Nonrheumatic mitral (valve) prolapse; Z87.891 Personal history of nicotine dependence
CPT/HCPCS: 81003; 99212; G0463

== ENCOUNTER 2022-12-20 10:18 | Emergency (ER) | payer OTHER, SELFPAY ==
[2022-12-20 10:31] VITALS: BP 111/79; PULSE 91; RESP 18; TEMP 36.7; O2SAT 100
--- NOTE | 2022-12-20 10:36 | ED.GENADULT ---
HPI - General Adult General Chief complaint: Urogenital-Female Stated complaint: possible uti Source: patient and RN notes reviewed History of Present Illness HPI narrative: 47-year-old female presents to urgent care with complaints of cloudy urine. Patient has history of IC and states ever since she started drinking the purified water, her urine became cloudy. Denies any fevers, chills, vomiting or diarrhea. Pt has no other complaints. Some parts of this dictation were generated by voice recognition software and may contain typographical and/or grammatical inaccuracies. Related Data Home Medications Medication Instructions Recorded Confirmed No Home Medications 11/30/22 12/20/22 Allergies Allergy/AdvReac Type Severity Reaction Status Date / Time latex Allergy Mild RASH-CONDOMS Verified 12/20/22 10:29 AND GLOVES clindamycin Allergy Hives Verified 12/20/22 10:29 gadobenic acid Allergy Hives Verified 12/20/22 10:29 [From contrast - MRI] iohexol Allergy Hives Verified 12/20/22 10:29 [From contrast - CT, X-RAY] lubiprostone [From Amitiza] Allergy Itching Verified 12/20/22 10:29 propoxyphene Allergy Other Verified 12/20/22 10:29 [From Darvocet-N 100] acetaminophen AdvReac Other Verified 12/20/22 10:29 amoxicillin AdvReac Chest Pain Verified 12/20/22 10:29 codeine AdvReac Nausea and Verified 12/20/22 10:29 Vomiting hydrocodone AdvReac Other Verified 12/20/22 10:29 ketorolac [From Toradol] AdvReac Palpitation Verified 12/14/22 08:36 s levofloxacin [From Levaquin] AdvReac Chest Pain Verified 12/14/22 08:36 nitrofurantoin AdvReac Chest Pain Verified 12/14/22 08:36 [From Macrobid] paroxetine [From Paxil] AdvReac Other Verified 12/14/22 08:36 Penicillins AdvReac Chest Pain Verified 12/14/22 08:36 Sulfa (Sulfonamide AdvReac Chest Pain Verified 12/14/22 08:36 Antibiotics) vancomycin AdvReac Chest Pain Verified 12/14/22 08:36 Review of Systems Review of Systems: CONSTITUTIONAL: Denies fever, chills, or sweats. EYES: Denies visual changes, redness, or discharge. ENT: Denies otalgia and sore throat CARDIOVASCULAR: Denies chest pain, palpitations, or edema. RESPIRATORY: Denies cough or dyspnea. GASTROINTESTINAL: Denies abdominal pain, nausea, vomiting, or diarrhea. GENITOURINARY: REports cloudy urine. SKIN: Denies rash or itching. MUSCULOSKELETAL: Denies back pain, joint pain, or myalgia. NEUROLOGIC: Denies headache, numbness, or weakness. [facility] Past Medical History Medical History Anxiety Bronchitis Constipation Depression Family history of malignant neoplasm of colon in father Genitourinary disorder Interstitial cystitis, urethral dilation GERD (gastroesophageal reflux disease) Interstitial cystitis Irritable bowel syndrome Irritable bowel syndrome with constipation Mitral valve prolapse Right hand fracture Urinary tract infection Vaginal delivery Surgical History Surgical History H/O hemorrhoidectomy H/O sinus surgery H/O tubal ligation H/O umbilical hernia repair History of facial surgery Nasal reconstruction History of hysterectomy History of orthopedic surgery Right knee, trigger release finger left hand History of tonsillectomy History of urinary tract surgery Family History Family History Grandparent Diabetes mellitus, Onset Age: 200 Cerebrovascular accident, Onset Age: 200 Father Family history of elevated blood lipids Carcinoma of colon Family history of coronary artery disease, Onset Age: 201 Patient's father is Grandparent Family history of malignant neoplasm Diabetes mellitus Cerebrovascular accident Hypertension Family history of cardiovascular disease Father Family history of congestive heart failure [place]
== END 2022-12-20 10:56 | disposition home or self-care (01) ==
PROVIDERS: Emergency Provider Nurse Practitioner Family
DX: N30.90 Cystitis, unspecified without hematuria (principal); Z87.891 Personal history of nicotine dependence; K21.9 Gastro-esophageal reflux disease without esophagitis; I34.1 Nonrheumatic mitral (valve) prolapse
CPT/HCPCS: 81003; 99212; G0463

== ENCOUNTER 2022-12-23 08:27 | Emergency (ER) | payer OTHER, SELFPAY ==
[2022-12-23 08:34] VITALS: BP 123/74; PULSE 71; RESP 20; TEMP 36.6; O2SAT 100
--- NOTE | 2022-12-23 08:36 | ED.FEMALEGU ---
HPI - Female Genitourinary General Chief complaint: Urogenital-Female Stated complaint: frequent urination Time Seen by Provider: 12/23/22 08:36 Source: patient and RN notes reviewed History of Present Illness HPI Narrative: Patient is a 47-year-old female who presents to urgent care with complaints of frequent urination. Patient states that she does believe it is due to her IBS flare. Patient states she is only concerned considering she is having a lower colonoscopy tomorrow. Patient has not had a positive UTI in many months that we have evaluated the urine at our facility. Patient denies any abdominal pain, nausea, vomiting, fever. No other acute complaints. No acute distress noted. Patient aware of the plan of care. Some parts of this dictation were generated by voice recognition software and may contain typographical and/or grammatical inaccuracies. Related Data Home Medications Medication Instructions Recorded Confirmed No Home Medications 11/30/22 12/20/22 Allergies Allergy/AdvReac Type Severity Reaction Status Date / Time latex Allergy Mild RASH-CONDOMS Verified 12/23/22 08:47 AND GLOVES clindamycin Allergy Hives Verified 12/23/22 08:47 gadobenic acid Allergy Hives Verified 12/23/22 08:47 [From contrast - MRI] iohexol Allergy Hives Verified 12/23/22 08:47 [From contrast - CT, X-RAY] lubiprostone [From Amitiza] Allergy Itching Verified 12/23/22 08:47 propoxyphene Allergy Other Verified 12/23/22 08:47 [From Darvocet-N 100] acetaminophen AdvReac Other Verified 12/23/22 08:47 amoxicillin AdvReac Chest Pain Verified 12/23/22 08:47 codeine AdvReac Nausea and Verified 12/23/22 08:47 Vomiting hydrocodone AdvReac Other Verified 12/23/22 08:47 ketorolac [From Toradol] AdvReac Palpitation Verified 12/23/22 08:47 s levofloxacin [From Levaquin] AdvReac Chest Pain Verified 12/23/22 08:47 nitrofurantoin AdvReac Chest Pain Verified 12/23/22 08:47 [From Macrobid] paroxetine [From Paxil] AdvReac Other Verified 12/23/22 08:47 Penicillins AdvReac Chest Pain Verified 12/23/22 08:47 Sulfa (Sulfonamide AdvReac Chest Pain Verified 12/23/22 08:47 Antibiotics) vancomycin AdvReac Chest Pain Verified 12/23/22 08:47 Review of Systems Review of Systems: CONSTITUTIONAL: Denies fever, chills, or sweats. EYES: Denies visual changes, redness, or discharge. ENT: Denies rhinorrhea, congestion, sore throat, or otalgia. CARDIOVASCULAR: Denies chest pain, palpitations, or edema. RESPIRATORY: Denies cough or dyspnea. GASTROINTESTINAL: Denies abdominal pain, nausea, vomiting, or diarrhea. GENITOURINARY: Reports of urinary frequency SKIN: Denies rash or itching. MUSCULOSKELETAL: Denies back pain, joint pain, or myalgia. NEUROLOGIC: Denies headache, numbness, or weakness. All other systems reviewed are negative, except as documented in HPI. [facility] Past Medical History Medical History Anxiety Bronchitis Constipation Depression Family history of malignant neoplasm of colon in father Genitourinary disorder Interstitial cystitis, urethral dilation GERD (gastroesophageal reflux disease) Interstitial cystitis Irritable bowel syndrome Irritable bowel syndrome with constipation Mitral valve prolapse Right hand fracture Urinary tract infection Vaginal delivery Surgical History Surgical History H/O hemorrhoidectomy H/O sinus surgery H/O tubal ligation H/O umbilical hernia repair History of facial surgery Nasal reconstruction History of hysterectomy History of orthopedic surgery Right knee, trigger release finger left hand History of tonsillectomy History of urinary tract surgery Family History Family History Grandparent Diabetes mellitus, Onset Age: 200 Cerebrovascular accident, Onset
== END 2022-12-23 09:05 | disposition home or self-care (01) ==
PROVIDERS: Emergency Provider Nurse Practitioner Family
DX: N30.10 Interstitial cystitis (chronic) without hematuria (principal); Z87.891 Personal history of nicotine dependence; K21.9 Gastro-esophageal reflux disease without esophagitis; I34.1 Nonrheumatic mitral (valve) prolapse
CPT/HCPCS: 81003; 87086; 87088; 99213; G0463

== ENCOUNTER 2022-12-27 08:01 | Emergency (ER) | payer OTHER, SELFPAY ==
--- NOTE | 2022-12-27 08:03 | ED.URI ---
HPI - URI/Sore Throat General Stated Complaint: Urine Check Time Seen by Provider: 12/27/22 08:02 Source: patient Mode of arrival: ambulatory Limitations: no limitations History of Present Illness HPI Narrative: Yaquelin is a 47-year-old female patient who presents to the clinic today for possible urinary tract infection. She reports she has had urinary frequency, urgency, and some irritation with urination x4 days. States she contacted her urologist but they directed her to come into the urgent care today to get her urine checked. She denies any fever, chills, abdominal pain, or flank pain Related Data Home Medications Medication Instructions Recorded Confirmed No Home Medications 11/30/22 12/23/22 Allergies Allergy/AdvReac Type Severity Reaction Status Date / Time latex Allergy Mild RASH-CONDOMS Verified 12/27/22 08:12 AND GLOVES clindamycin Allergy Hives Verified 12/27/22 08:12 gadobenic acid Allergy Hives Verified 12/27/22 08:12 [From contrast - MRI] iohexol Allergy Hives Verified 12/27/22 08:12 [From contrast - CT, X-RAY] lubiprostone [From Amitiza] Allergy Itching Verified 12/27/22 08:12 propoxyphene Allergy Other Verified 12/27/22 08:12 [From Darvocet-N 100] acetaminophen AdvReac Other Verified 12/27/22 08:12 amoxicillin AdvReac Chest Pain Verified 12/27/22 08:12 codeine AdvReac Nausea and Verified 12/27/22 08:12 Vomiting hydrocodone AdvReac Other Verified 12/27/22 08:12 ketorolac [From Toradol] AdvReac Palpitation Verified 12/27/22 08:12 s levofloxacin [From Levaquin] AdvReac Chest Pain Verified 12/27/22 08:12 nitrofurantoin AdvReac Chest Pain Verified 12/27/22 08:12 [From Macrobid] paroxetine [From Paxil] AdvReac Other Verified 12/27/22 08:12 Penicillins AdvReac Chest Pain Verified 12/27/22 08:12 Sulfa (Sulfonamide AdvReac Chest Pain Verified 12/27/22 08:12 Antibiotics) vancomycin AdvReac Chest Pain Verified 12/27/22 08:12 Review of Systems Review of Systems: Pertinent positives per HPI. Patient denies any fever, chills, rash, headache, visual changes, dizziness, cough, runny nose, sore throat, shortness of breath, chest pain, palpitations, nausea, vomiting, diarrhea, constipation, abdominal pain. [facility] Past Medical History Medical History Anxiety Bronchitis Constipation Depression Family history of malignant neoplasm of colon in father Genitourinary disorder Interstitial cystitis, urethral dilation GERD (gastroesophageal reflux disease) Interstitial cystitis Irritable bowel syndrome Irritable bowel syndrome with constipation Mitral valve prolapse Right hand fracture Urinary tract infection Vaginal delivery Surgical History Surgical History H/O hemorrhoidectomy H/O sinus surgery H/O tubal ligation H/O umbilical hernia repair History of facial surgery Nasal reconstruction History of hysterectomy History of orthopedic surgery Right knee, trigger release finger left hand History of tonsillectomy History of urinary tract surgery Family History Family History Grandparent Diabetes mellitus, Onset Age: 200 Cerebrovascular accident, Onset Age: 200 Father Family history of elevated blood lipids Carcinoma of colon Family history of coronary artery disease, Onset Age: 201 Patient's father is Grandparent Family history of malignant neoplasm Diabetes mellitus Cerebrovascular accident Hypertension Family history of cardiovascular disease Father Family history of congestive heart failure Patient's father is Hypertension Carcinoma of colon Family history of emphysema Family history of cardiovascular disease Sibling Hypertension Grandparent Diabetes mellitus Social History Social History (Reviewed
[2022-12-27 08:10] VITALS: BP 111/82; PULSE 74; RESP 16; TEMP 36.5; O2SAT 100
== END 2022-12-27 08:30 | disposition home or self-care (01) ==
PROVIDERS: Emergency Provider Nurse Practitioner Family
DX: R35.0 Frequency of micturition (principal); Z87.891 Personal history of nicotine dependence
CPT/HCPCS: 81003; 99212; G0463

== ENCOUNTER 2022-12-29 09:17 | Emergency (ER) | payer OTHER, SELFPAY ==
[2022-12-29 09:20] VITALS: BP 120/77; PULSE 69; RESP 20; TEMP 36.8; O2SAT 100
[2022-12-29 09:31] VITALS: BP 120/77; PULSE 69; RESP 20; TEMP 36.8; O2SAT 100
--- NOTE | 2022-12-29 10:05 | ED.GENADULT ---
HPI - General Adult General Chief complaint: Urogenital-Female Stated complaint: Urine check Source: patient and RN notes reviewed History of Present Illness HPI narrative: 47-year-old female presents urgent care with complaints urinary frequency for last 4 days. Patient states she just wants to make sure she does not have infection. Patient denies any burning with urination, abdominal pain fevers, chills, or any other symptoms. Patient does state her hemorrhoids have been out and she believes every time she sits down, the pressure of her hemorrhoids causes her urinary frequency. Patient has a scheduled appointment with her urologist and may. Patient does have a scheduled upper GI procedure for Friday that she was encouraged to keep. Some parts of this dictation were generated by voice recognition software and may contain typographical and/or grammatical inaccuracies. Related Data Home Medications Medication Instructions Recorded Confirmed No Home Medications 11/30/22 12/29/22 Allergies Allergy/AdvReac Type Severity Reaction Status Date / Time latex Allergy Mild RASH-CONDOMS Verified 12/29/22 09:30 AND GLOVES clindamycin Allergy Hives Verified 12/29/22 09:30 gadobenic acid Allergy Hives Verified 12/29/22 09:30 [From contrast - MRI] iohexol Allergy Hives Verified 12/29/22 09:30 [From contrast - CT, X-RAY] lubiprostone [From Amitiza] Allergy Itching Verified 12/29/22 09:30 propoxyphene Allergy Other Verified 12/29/22 09:30 [From Darvocet-N 100] acetaminophen AdvReac Other Verified 12/29/22 09:30 amoxicillin AdvReac Chest Pain Verified 12/29/22 09:30 codeine AdvReac Nausea and Verified 12/29/22 09:30 Vomiting hydrocodone AdvReac Other Verified 12/29/22 09:30 ketorolac [From Toradol] AdvReac Palpitation Verified 12/29/22 09:30 s levofloxacin [From Levaquin] AdvReac Chest Pain Verified 12/29/22 09:30 nitrofurantoin AdvReac Chest Pain Verified 12/29/22 09:30 [From Macrobid] paroxetine [From Paxil] AdvReac Other Verified 12/29/22 09:30 Penicillins AdvReac Chest Pain Verified 12/29/22 09:30 Sulfa (Sulfonamide AdvReac Chest Pain Verified 12/29/22 09:30 Antibiotics) vancomycin AdvReac Chest Pain Verified 12/29/22 09:30 Review of Systems Review of Systems: CONSTITUTIONAL: Denies fever, chills, or sweats. EYES: Denies visual changes, redness, or discharge. ENT: Denies otalgia and sore throat CARDIOVASCULAR: Denies chest pain, palpitations, or edema. RESPIRATORY: Denies cough or dyspnea. GASTROINTESTINAL: Denies abdominal pain, nausea, vomiting, or diarrhea. GENITOURINARY: Reports urinary frequency SKIN: Denies rash or itching. MUSCULOSKELETAL: Denies back pain, joint pain, or myalgia. NEUROLOGIC: Denies headache, numbness, or weakness. [facility] Past Medical History Medical History Anxiety Bronchitis Constipation Depression Family history of malignant neoplasm of colon in father Genitourinary disorder Interstitial cystitis, urethral dilation GERD (gastroesophageal reflux disease) Interstitial cystitis Irritable bowel syndrome Irritable bowel syndrome with constipation Mitral valve prolapse Right hand fracture Urinary tract infection Vaginal delivery Surgical History Surgical History H/O hemorrhoidectomy H/O sinus surgery H/O tubal ligation H/O umbilical hernia repair History of facial surgery Nasal reconstruction History of hysterectomy History of orthopedic surgery Right knee, trigger release finger left hand History of tonsillectomy History of urinary tract surgery Family History Family History Grandparent Diabetes mellitus, Onset Age: 200 Cerebrovascular accident, Onset Age: 200 Father Family history of elevated blood lipids Carcinom
== END 2022-12-29 10:14 | disposition home or self-care (01) ==
PROVIDERS: Emergency Provider Nurse Practitioner Family
DX: R30.0 Dysuria (principal); Z87.891 Personal history of nicotine dependence; K21.9 Gastro-esophageal reflux disease without esophagitis; I34.1 Nonrheumatic mitral (valve) prolapse
CPT/HCPCS: 81003; 99213; G0463

== ENCOUNTER 2023-01-01 12:23 | Emergency (ER) | payer OTHER, SELFPAY ==
--- NOTE | 2023-01-01 12:26 | ED.FEMALEGU ---
HPI - Female Genitourinary General Chief complaint: Urogenital-Female Stated complaint: urine check Time Seen by Provider: 01/01/23 12:26 Source: patient and RN notes reviewed History of Present Illness HPI Narrative: Patient is a 47 old female who presents to urgent care with complaints of urinary frequency. Patient states that it got worse over the last week or so but has been worse since her mesh replacement. Patient denies any blood in the urine, nausea, vomiting or abdominal discomfort. Patient did go to the ER 2 days ago and again this morning and had no resolution. No other acute complaints. No acute distress noted. Patient aware of the plan of care. Some parts of this dictation were generated by voice recognition software and may contain typographical and/or grammatical inaccuracies. Related Data Home Medications Medication Instructions Recorded Confirmed No Home Medications 11/30/22 12/29/22 Allergies Allergy/AdvReac Type Severity Reaction Status Date / Time latex Allergy Mild RASH-CONDOMS Verified 01/01/23 12:31 AND GLOVES clindamycin Allergy Hives Verified 01/01/23 12:31 gadobenic acid Allergy Hives Verified 01/01/23 12:31 [From contrast - MRI] iohexol Allergy Hives Verified 01/01/23 12:31 [From contrast - CT, X-RAY] lubiprostone [From Amitiza] Allergy Itching Verified 01/01/23 12:31 propoxyphene Allergy Other Verified 01/01/23 12:31 [From Darvocet-N 100] acetaminophen AdvReac Other Verified 01/01/23 12:31 amoxicillin AdvReac Chest Pain Verified 01/01/23 12:31 codeine AdvReac Nausea and Verified 01/01/23 12:31 Vomiting hydrocodone AdvReac Other Verified 01/01/23 12:31 ketorolac [From Toradol] AdvReac Palpitation Verified 01/01/23 12:31 s levofloxacin [From Levaquin] AdvReac Chest Pain Verified 01/01/23 12:31 nitrofurantoin AdvReac Chest Pain Verified 01/01/23 12:31 [From Macrobid] paroxetine [From Paxil] AdvReac Other Verified 01/01/23 12:31 Penicillins AdvReac Chest Pain Verified 01/01/23 12:31 Sulfa (Sulfonamide AdvReac Chest Pain Verified 01/01/23 12:31 Antibiotics) vancomycin AdvReac Chest Pain Verified 01/01/23 12:31 Review of Systems Review of Systems: CONSTITUTIONAL: Denies fever, chills, or sweats. EYES: Denies visual changes, redness, or discharge. ENT: Denies rhinorrhea, congestion, sore throat, or otalgia. CARDIOVASCULAR: Denies chest pain, palpitations, or edema. RESPIRATORY: Denies cough or dyspnea. GASTROINTESTINAL: Denies abdominal pain, nausea, vomiting, or diarrhea. GENITOURINARY: Reports of urinary frequency SKIN: Denies rash or itching. MUSCULOSKELETAL: Denies back pain, joint pain, or myalgia. NEUROLOGIC: Denies headache, numbness, or weakness. All other systems reviewed are negative, except as documented in HPI. [facility] Past Medical History Medical History Anxiety Bronchitis Constipation Depression Family history of malignant neoplasm of colon in father Genitourinary disorder Interstitial cystitis, urethral dilation GERD (gastroesophageal reflux disease) Interstitial cystitis Irritable bowel syndrome Irritable bowel syndrome with constipation Mitral valve prolapse Right hand fracture Urinary tract infection Vaginal delivery Surgical History Surgical History H/O hemorrhoidectomy H/O sinus surgery H/O tubal ligation H/O umbilical hernia repair History of facial surgery Nasal reconstruction History of hysterectomy History of orthopedic surgery Right knee, trigger release finger left hand History of tonsillectomy History of urinary tract surgery Family History Family History Grandparent Diabetes mellitus, Onset Age: 200 Cerebrovascular accident, Onset Age: 200 Father Family history of elevated blood lipid
[2023-01-01 12:31] VITALS: BP 118/82; PULSE 77; RESP 20; TEMP 37.1; O2SAT 100
[2023-01-01 12:32] VITALS: BP 118/82; PULSE 77; RESP 20; TEMP 37.1; O2SAT 100
== END 2023-01-01 12:48 | disposition home or self-care (01) ==
PROVIDERS: Emergency Provider Nurse Practitioner Family; PCP Family Medicine
DX: N30.10 Interstitial cystitis (chronic) without hematuria (principal); Z87.891 Personal history of nicotine dependence; K21.9 Gastro-esophageal reflux disease without esophagitis; I34.1 Nonrheumatic mitral (valve) prolapse
CPT/HCPCS: 81003; 87086; 87088; 99213; G0463

== ENCOUNTER 2023-01-02 10:24 | Emergency (ER) | payer OTHER, SELFPAY ==
--- NOTE | 2023-01-02 10:34 | ED.FEMALEGU ---
HPI - Female Genitourinary General Chief complaint: Urogenital-Female Stated complaint: uti symptoms Time Seen by Provider: 01/02/23 10:34 Source: patient and RN notes reviewed History of Present Illness HPI Narrative: Patient is a 47-year-old female who presents to urgent care with complaints of severe urinary frequency that is increased over the last several days. Patient was seen at our [place] facility yesterday and urine was cultured, UA was negative. Patient's last several urine cultures at our facilities have been negative for infection. Patient has not needed antibiotics for some time for urinary tract infection. Patient has chronic interstitial cystitis. Patient states she spoke to her urology office today he was unable to see her until Friday and advised that she have her urine checked again for possibility of infection. Patient denies any nausea, vomiting, abdominal pain or blood in the urine. Patient was advised not to take anything for her bladder spasms. No other acute complaints. Patient is tearful but otherwise no acute distress noted. Patient aware of the plan of care. Some parts of this dictation were generated by voice recognition software and may contain typographical and/or grammatical inaccuracies. Related Data Home Medications Medication Instructions Recorded Confirmed No Home Medications 11/30/22 01/02/23 Allergies Allergy/AdvReac Type Severity Reaction Status Date / Time latex Allergy Mild RASH-CONDOMS Verified 01/02/23 10:45 AND GLOVES clindamycin Allergy Hives Verified 01/02/23 10:45 gadobenic acid Allergy Hives Verified 01/02/23 10:45 [From contrast - MRI] iohexol Allergy Hives Verified 01/02/23 10:45 [From contrast - CT, X-RAY] lubiprostone [From Amitiza] Allergy Itching Verified 01/02/23 10:45 propoxyphene Allergy Other Verified 01/02/23 10:45 [From Darvocet-N 100] acetaminophen AdvReac Other Verified 01/02/23 10:45 amoxicillin AdvReac Chest Pain Verified 01/02/23 10:45 codeine AdvReac Nausea and Verified 01/02/23 10:45 Vomiting hydrocodone AdvReac Other Verified 01/02/23 10:45 ketorolac [From Toradol] AdvReac Palpitation Verified 01/02/23 10:45 s levofloxacin [From Levaquin] AdvReac Chest Pain Verified 01/02/23 10:45 nitrofurantoin AdvReac Chest Pain Verified 01/02/23 10:45 [From Macrobid] paroxetine [From Paxil] AdvReac Other Verified 01/02/23 10:45 Penicillins AdvReac Chest Pain Verified 01/02/23 10:45 Sulfa (Sulfonamide AdvReac Chest Pain Verified 01/02/23 10:45 Antibiotics) vancomycin AdvReac Chest Pain Verified 01/02/23 10:45 Review of Systems Review of Systems: CONSTITUTIONAL: Denies fever, chills, or sweats. EYES: Denies visual changes, redness, or discharge. ENT: Denies rhinorrhea, congestion, sore throat, or otalgia. CARDIOVASCULAR: Denies chest pain, palpitations, or edema. RESPIRATORY: Denies cough or dyspnea. GASTROINTESTINAL: Denies abdominal pain, nausea, vomiting, or diarrhea. GENITOURINARY: Reports of severe urinary frequency SKIN: Denies rash or itching. MUSCULOSKELETAL: Denies back pain, joint pain, or myalgia. NEUROLOGIC: Denies headache, numbness, or weakness. All other systems reviewed are negative, except as documented in HPI. [facility] Past Medical History Medical History Anxiety Bronchitis Constipation Depression Family history of malignant neoplasm of colon in father Genitourinary disorder Interstitial cystitis, urethral dilation GERD (gastroesophageal reflux disease) Interstitial cystitis Irritable bowel syndrome Irritable bowel syndrome with constipation Mitral valve prolapse Right hand fracture Urinary tract infection Vaginal delivery Surgical History Surgical History H/O hemorrhoidectomy H/O sinus surgery H/O tubal ligation H/O umbilical hernia repair History of facial
[2023-01-02 10:41] VITALS: BP 132/89; PULSE 83; RESP 16; TEMP 37; O2SAT 98
== END 2023-01-02 11:13 | disposition home or self-care (01) ==
PROVIDERS: Emergency Provider Nurse Practitioner Family; PCP Family Medicine
DX: N30.10 Interstitial cystitis (chronic) without hematuria (principal); Z87.891 Personal history of nicotine dependence; K21.9 Gastro-esophageal reflux disease without esophagitis; I34.1 Nonrheumatic mitral (valve) prolapse
CPT/HCPCS: 81003; 99212; G0463

== ENCOUNTER 2023-01-07 11:39 | Emergency (ER) | payer OTHER, SELFPAY ==
[2023-01-07 11:54] VITALS: BP 139/79; PULSE 72; RESP 14; TEMP 36.6; O2SAT 100
--- NOTE | 2023-01-07 12:59 | ED.FEMALEGU ---
HPI - Female Genitourinary General Chief complaint: Urogenital-Female Stated complaint: Urinary Problem Time Seen by Provider: 01/07/23 12:59 Source: patient Mode of arrival: ambulatory Limitations: no limitations History of Present Illness HPI Narrative: 48 year old female who presents to [facility] care stating she had urethral dilatation done yesterday and her doctor put her on Bactrim and wants urine checked today to make sure infection is gone. Patient is preoccupied with urinary history and interstitial cystitis symptoms along with colon issues. Patient has been seen 7 times this month for similar complaints and wants urine checked. Patient denies any burning or pain with urination today, denies any vaginal discharge, fevers, chills or any perineal pressure or pain. Patient does state since had procedure done yesterday spasms have resolved. MD elicited complaint: other (patient wants urine checked) Pertinent past history: interstitial cystits and other (urethral spasms) Related Data Home Medications Medication Instructions Recorded Confirmed sulfamethoxazole 800 1 tablet PO Q12H 01/07/23 01/07/23 mg-trimethoprim 160 mg tablet (Bactrim DS) Allergies Allergy/AdvReac Type Severity Reaction Status Date / Time latex Allergy Mild RASH-CONDOMS Verified 01/07/23 12:00 AND GLOVES clindamycin Allergy Hives Verified 01/07/23 12:00 gadobenic acid Allergy Hives Verified 01/07/23 12:00 [From contrast - MRI] iohexol Allergy Hives Verified 01/07/23 12:00 [From contrast - CT, X-RAY] lubiprostone [From Amitiza] Allergy Itching Verified 01/07/23 12:00 propoxyphene Allergy Other Verified 01/07/23 12:00 [From Darvocet-N 100] acetaminophen AdvReac Other Verified 01/07/23 12:00 amoxicillin AdvReac Chest Pain Verified 01/07/23 12:00 codeine AdvReac Nausea and Verified 01/07/23 12:00 Vomiting hydrocodone AdvReac Other Verified 01/07/23 12:00 ketorolac [From Toradol] AdvReac Palpitation Verified 01/07/23 12:00 s levofloxacin [From Levaquin] AdvReac Chest Pain Verified 01/07/23 12:00 nitrofurantoin AdvReac Chest Pain Verified 01/07/23 12:00 [From Macrobid] paroxetine [From Paxil] AdvReac Other Verified 01/07/23 12:00 Penicillins AdvReac Chest Pain Verified 01/07/23 12:00 Sulfa (Sulfonamide AdvReac Chest Pain Verified 01/07/23 12:00 Antibiotics) vancomycin AdvReac Chest Pain Verified 01/07/23 12:00 Review of Systems Review of Systems: CONSTITUTIONAL: Denies fever, chills, or sweats. CARDIOVASCULAR: Denies chest pain, palpitations, or edema. RESPIRATORY: Denies cough or dyspnea. GASTROINTESTINAL: Denies abdominal pain, nausea, vomiting, or diarrhea. GENITOURINARY: Denies any present dysuria, frequency, urgency,reports spasms gone. Denies flank pain or hematuria. SKIN: Denies rash or itching. MUSCULOSKELETAL: Denies back pain or myalgia. Denies CVA tenderness NEUROLOGIC: Denies headache All systems reviewed & are unremarkable except as noted in HPI and below PMFSH Past Medical History Medical History Anxiety Bronchitis Constipation Depression Family history of malignant neoplasm of colon in father Genitourinary disorder Interstitial cystitis, urethral dilation GERD (gastroesophageal reflux disease) Interstitial cystitis Irritable bowel syndrome Irritable bowel syndrome with constipation Mitral valve prolapse Right hand fracture Urinary tract infection Vaginal delivery Surgical History Surgical History H/O hemorrhoidectomy H/O sinus surgery H/O tubal ligation H/O umbilical hernia repair History of facial surgery Nasal reconstruction History of hysterectomy History of orthopedic surgery Right knee, trigger release finger left hand History of tonsillectomy History of urinary tract surgery Family History Family History (Reviewed 01/08/23 @ 11:07 by Yaquelin Jon
== END 2023-01-07 13:14 | disposition home or self-care (01) ==
PROVIDERS: Emergency Provider Registered Nurse
DX: N30.10 Interstitial cystitis (chronic) without hematuria (principal); F41.9 Anxiety disorder, unspecified; Z87.891 Personal history of nicotine dependence; K21.9 Gastro-esophageal reflux disease without esophagitis; M34.1 CR(E)ST syndrome
CPT/HCPCS: 81003; 87086; 99213; G0463

== ENCOUNTER 2023-01-09 15:02 | Emergency (ER) | payer OTHER, SELFPAY ==
[2023-01-09 15:05] VITALS: BP 119/72; PULSE 71; RESP 16; TEMP 36; O2SAT 100
--- NOTE | 2023-01-09 15:05 | ED.FEMALEGU ---
HPI - Female Genitourinary General Chief complaint: Urogenital-Female Stated complaint: Urinary Problem Time Seen by Provider: 01/09/23 15:05 Source: patient and RN notes reviewed History of Present Illness HPI Narrative: Patient is a 48-year-old female who presents to urgent care with complaints of urinary frequency, lower abdominal spasms. Patient had a urethral dilation on January 07. Patient was placed on Bactrim by the urologist and has already had 1 urinary culture completed since then, which was negative. Patient denies any fever, nausea, vomiting. No other acute complaints. No acute distress noted. Patient aware of the plan of care. Some parts of this dictation were generated by voice recognition software and may contain typographical and/or grammatical inaccuracies. Related Data Home Medications Medication Instructions Recorded Confirmed oxybutynin chloride 5 mg tablet 5 mg PO TID 01/09/23 01/09/23 sulfamethoxazole 800 1 tablet PO Q12H 01/09/23 01/09/23 mg-trimethoprim 160 mg tablet (Bactrim DS) Allergies Allergy/AdvReac Type Severity Reaction Status Date / Time latex Allergy Mild RASH-CONDOMS Verified 01/09/23 15:12 AND GLOVES clindamycin Allergy Hives Verified 01/09/23 15:12 gadobenic acid Allergy Hives Verified 01/09/23 15:12 [From contrast - MRI] iohexol Allergy Hives Verified 01/09/23 15:12 [From contrast - CT, X-RAY] lubiprostone [From Amitiza] Allergy Itching Verified 01/09/23 15:12 propoxyphene Allergy Other Verified 01/09/23 15:12 [From Darvocet-N 100] acetaminophen AdvReac Other Verified 01/09/23 15:12 amoxicillin AdvReac Chest Pain Verified 01/09/23 15:12 codeine AdvReac Nausea and Verified 01/09/23 15:12 Vomiting hydrocodone AdvReac Other Verified 01/09/23 15:12 ketorolac [From Toradol] AdvReac Palpitation Verified 01/09/23 15:12 s levofloxacin [From Levaquin] AdvReac Chest Pain Verified 01/09/23 15:12 nitrofurantoin AdvReac Chest Pain Verified 01/09/23 15:12 [From Macrobid] paroxetine [From Paxil] AdvReac Other Verified 01/09/23 15:12 Penicillins AdvReac Chest Pain Verified 01/09/23 15:12 Sulfa (Sulfonamide AdvReac Chest Pain Verified 01/09/23 15:12 Antibiotics) vancomycin AdvReac Chest Pain Verified 01/09/23 15:12 Review of Systems Review of Systems: CONSTITUTIONAL: Denies fever, chills, or sweats. EYES: Denies visual changes, redness, or discharge. ENT: Denies rhinorrhea, congestion, sore throat, or otalgia. CARDIOVASCULAR: Denies chest pain, palpitations, or edema. RESPIRATORY: Denies cough or dyspnea. GASTROINTESTINAL: Denies abdominal pain, nausea, vomiting, or diarrhea. GENITOURINARY: Reports of urinary frequency, bladder spasms and suprapubic tenderness SKIN: Denies rash or itching. MUSCULOSKELETAL: Denies back pain, joint pain, or myalgia. NEUROLOGIC: Denies headache, numbness, or weakness. All other systems reviewed are negative, except as documented in HPI. [facility] Past Medical History Medical History Anxiety Bronchitis Constipation Depression Family history of malignant neoplasm of colon in father Genitourinary disorder Interstitial cystitis, urethral dilation GERD (gastroesophageal reflux disease) Interstitial cystitis Irritable bowel syndrome Irritable bowel syndrome with constipation Mitral valve prolapse Right hand fracture Urinary tract infection Vaginal delivery Surgical History Surgical History H/O hemorrhoidectomy H/O sinus surgery H/O tubal ligation H/O umbilical hernia repair History of facial surgery Nasal reconstruction History of hysterectomy History of orthopedic surgery Right knee, trigger release finger left hand History of tonsillectomy History of urinary tract surgery Family History Family History Grandparent
== END 2023-01-09 15:37 | disposition home or self-care (01) ==
PROVIDERS: Emergency Provider Nurse Practitioner Family
DX: N30.90 Cystitis, unspecified without hematuria (principal); Z87.891 Personal history of nicotine dependence; K21.9 Gastro-esophageal reflux disease without esophagitis; I34.1 Nonrheumatic mitral (valve) prolapse
CPT/HCPCS: 81003; 99212; G0463

== ENCOUNTER 2023-01-12 12:30 | Emergency (ER) | payer OTHER, SELFPAY ==
[2023-01-12 12:39] VITALS: BP 124/93; PULSE 72; RESP 16; TEMP 36.6; O2SAT 100
--- NOTE | 2023-01-12 12:48 | ED.FEMALEGU ---
HPI - Female Genitourinary General Chief complaint: Urogenital-Female Stated complaint: UTI SYMPTOMS Time Seen by Provider: 01/12/23 12:48 Source: patient, RN notes reviewed and old records reviewed Mode of arrival: ambulatory Limitations: no limitations History of Present Illness HPI Narrative: 48 year old female who presents to express care with concern over urinary symptoms of frequency. Patient states that she quit taking the Bactrim which was prescribed for her on the since it was upsetting her stomach.Patient reports that she took the medication till . Patient states concern over follow up with urologist they want her to see stating that she is not scheduled till March.Patient reports that she is still taking oxybutynin as prescribed.Patient denies any fevers, suprapubic pain or any CVA tenderness. MD elicited complaint: other (urinary frequency) Pertinent past history: interstitial cystits Related Data Home Medications Medication Instructions Recorded Confirmed oxybutynin chloride 5 mg tablet 5 mg PO TID 01/09/23 01/09/23 sulfamethoxazole 800 1 tablet PO Q12H 01/09/23 01/09/23 mg-trimethoprim 160 mg tablet (Bactrim DS) Allergies Allergy/AdvReac Type Severity Reaction Status Date / Time latex Allergy Mild RASH-CONDOMS Verified 01/09/23 15:12 AND GLOVES clindamycin Allergy Hives Verified 01/09/23 15:12 gadobenic acid Allergy Hives Verified 01/09/23 15:12 [From contrast - MRI] iohexol Allergy Hives Verified 01/09/23 15:12 [From contrast - CT, X-RAY] lubiprostone [From Amitiza] Allergy Itching Verified 01/09/23 15:12 propoxyphene Allergy Other Verified 01/09/23 15:12 [From Darvocet-N 100] acetaminophen AdvReac Other Verified 01/09/23 15:12 amoxicillin AdvReac Chest Pain Verified 01/09/23 15:12 codeine AdvReac Nausea and Verified 01/09/23 15:12 Vomiting hydrocodone AdvReac Other Verified 01/09/23 15:12 ketorolac [From Toradol] AdvReac Palpitation Verified 01/09/23 15:12 s levofloxacin [From Levaquin] AdvReac Chest Pain Verified 01/09/23 15:12 nitrofurantoin AdvReac Chest Pain Verified 01/09/23 15:12 [From Macrobid] paroxetine [From Paxil] AdvReac Other Verified 01/09/23 15:12 Penicillins AdvReac Chest Pain Verified 01/09/23 15:12 Sulfa (Sulfonamide AdvReac Chest Pain Verified 01/09/23 15:12 Antibiotics) vancomycin AdvReac Chest Pain Verified 01/09/23 15:12 Review of Systems Review of Systems: CONSTITUTIONAL: Denies fever, chills, or sweats. CARDIOVASCULAR: Denies chest pain, palpitations, or edema. RESPIRATORY: Denies cough or dyspnea. GASTROINTESTINAL: Denies abdominal pain, nausea, vomiting, or diarrhea. GENITOURINARY: Reports no dysuria,reports frequency, urgency. Denies flank pain or hematuria. SKIN: Denies rash or itching. MUSCULOSKELETAL: Denies back pain or myalgia. Denies CVA tenderness NEUROLOGIC: Denies headache All systems reviewed & are unremarkable except as noted in HPI and below PMFSH Past Medical History Medical History Anxiety Bronchitis Constipation Depression Family history of malignant neoplasm of colon in father Genitourinary disorder Interstitial cystitis, urethral dilation GERD (gastroesophageal reflux disease) Interstitial cystitis Irritable bowel syndrome Irritable bowel syndrome with constipation Mitral valve prolapse Right hand fracture Urinary tract infection Vaginal delivery Surgical History Surgical History H/O hemorrhoidectomy H/O sinus surgery H/O tubal ligation H/O umbilical hernia repair History of facial surgery Nasal reconstruction History of hysterectomy History of orthopedic surgery Right knee, trigger release finger left hand History of tonsillectomy History of urinary tract surgery Family History Family History Grandparen
== END 2023-01-12 13:10 | disposition home or self-care (01) ==
PROVIDERS: Emergency Provider Registered Nurse; PCP Family Medicine
DX: N30.90 Cystitis, unspecified without hematuria (principal); Z87.891 Personal history of nicotine dependence; K21.9 Gastro-esophageal reflux disease without esophagitis; I34.1 Nonrheumatic mitral (valve) prolapse
CPT/HCPCS: 81003; 99212; G0463

== ENCOUNTER 2023-01-23 10:33 | Emergency (ER) | payer BC, SELFPAY ==
[2023-01-23 10:43] VITALS: BP 120/78; PULSE 73; RESP 16; TEMP 36.9; O2SAT 100
--- NOTE | 2023-01-23 10:46 | ED.FEMALEGU ---
HPI - Female Genitourinary General Chief complaint: Urogenital-Female Stated complaint: Urinary Problem Time Seen by Provider: 01/23/23 10:52 Source: patient and RN notes reviewed Mode of arrival: ambulatory Limitations: no limitations History of Present Illness HPI Narrative: 48-year-old female presents concern for bladder spasms for 4 days, increased frequency. She denies fever, aches, chills, sweats, nausea, vomiting, back pain. Reports she had her urethra dilated of this few weeks ago. Reports she has an appointment with a new GI doctor and urologist in the next couple of weeks. MD elicited complaint: UTI Related Data Home Medications Medication Instructions Recorded Confirmed No Home Medications 01/23/23 01/23/23 Allergies Allergy/AdvReac Type Severity Reaction Status Date / Time latex Allergy Mild RASH-CONDOMS Verified 01/23/23 10:55 AND GLOVES clindamycin Allergy Hives Verified 01/23/23 10:55 gadobenic acid Allergy Hives Verified 01/23/23 10:55 [From contrast - MRI] iohexol Allergy Hives Verified 01/23/23 10:55 [From contrast - CT, X-RAY] lubiprostone [From Amitiza] Allergy Itching Verified 01/23/23 10:55 propoxyphene Allergy Other Verified 01/23/23 10:55 [From Darvocet-N 100] acetaminophen AdvReac Other Verified 01/23/23 10:55 amoxicillin AdvReac Chest Pain Verified 01/23/23 10:55 codeine AdvReac Nausea and Verified 01/23/23 10:55 Vomiting hydrocodone AdvReac Other Verified 01/23/23 10:55 ketorolac [From Toradol] AdvReac Palpitation Verified 01/23/23 10:55 s levofloxacin [From Levaquin] AdvReac Chest Pain Verified 01/23/23 10:55 nitrofurantoin AdvReac Chest Pain Verified 01/23/23 10:55 [From Macrobid] paroxetine [From Paxil] AdvReac Other Verified 01/23/23 10:55 Penicillins AdvReac Chest Pain Verified 01/23/23 10:55 Sulfa (Sulfonamide AdvReac Chest Pain Verified 01/23/23 10:55 Antibiotics) vancomycin AdvReac Chest Pain Verified 01/23/23 10:55 Review of Systems Review of Systems: CONSTITUTIONAL: Denies malaise, chills, sweats, or fever. Reports unintentional weight loss CARDIOVASCULAR: Denies chest pain, palpitations, or edema. RESPIRATORY: Denies cough or dyspnea. GASTROINTESTINAL: Denies abdominal pain, nausea, vomiting, diarrhea GENITOURINARY: Reports dysuria, frequency. Denies urgency, suprapubic pressure. Denies flank pain or hematuria. SKIN: Denies rash or itching. MUSCULOSKELETAL: Denies back pain or myalgia. All systems reviewed & are unremarkable except as noted in HPI and below PMFSH Past Medical History Medical History Anxiety Bronchitis Constipation Depression Family history of malignant neoplasm of colon in father Genitourinary disorder Interstitial cystitis, urethral dilation GERD (gastroesophageal reflux disease) Interstitial cystitis Irritable bowel syndrome Irritable bowel syndrome with constipation Mitral valve prolapse Right hand fracture Urinary tract infection Vaginal delivery Surgical History Surgical History H/O hemorrhoidectomy H/O sinus surgery H/O tubal ligation H/O umbilical hernia repair History of facial surgery Nasal reconstruction History of hysterectomy History of orthopedic surgery Right knee, trigger release finger left hand History of tonsillectomy History of urinary tract surgery Family History Family History Grandparent Diabetes mellitus, Onset Age: 200 Cerebrovascular accident, Onset Age: 200 Father Family history of elevated blood lipids Carcinoma of colon Family history of coronary artery disease, Onset Age: 201 Patient's father is Grandparent Family history of malignant neoplasm Diabetes mellitus Cerebrovascular accident Hypertension Family history of cardiovascular disease
== END 2023-01-23 11:07 | disposition home or self-care (01) ==
PROVIDERS: Emergency Provider Nurse Practitioner
DX: N32.89 Other specified disorders of bladder (principal); Z87.891 Personal history of nicotine dependence; K21.9 Gastro-esophageal reflux disease without esophagitis; I34.1 Nonrheumatic mitral (valve) prolapse
CPT/HCPCS: 81003; 99212; G0463

== ENCOUNTER 2023-01-28 11:02 | Emergency (ER) | payer BC, SELFPAY ==
[2023-01-28 11:06] VITALS: BP 124/78; PULSE 77; RESP 16; TEMP 35.7; O2SAT 100
--- NOTE | 2023-01-28 11:31 | ED.GENADULT ---
HPI - General Adult General Chief complaint: Urogenital-Female Stated complaint: Urinary Problem Time Seen by Provider: 01/28/23 11:04 Source: patient Mode of arrival: ambulatory Limitations: no limitations History of Present Illness HPI narrative: Patient presents for evaluation of bladder spasms. Symptom onset this morning. Symptoms only occur when voiding. She denies any fever, chills, nausea, vomiting, dysuria, urgency, frequency, hematuria, vaginal bleeding or discharge. She has a history of interstitial cystitis. She wanted to make sure she did not have a UTI. No additional complaints or concerns. Related Data Home Medications Medication Instructions Recorded Confirmed No Home Medications 01/23/23 01/23/23 Allergies Allergy/AdvReac Type Severity Reaction Status Date / Time latex Allergy Mild RASH-CONDOMS Verified 01/23/23 10:55 AND GLOVES clindamycin Allergy Hives Verified 01/23/23 10:55 gadobenic acid Allergy Hives Verified 01/23/23 10:55 [From contrast - MRI] iohexol Allergy Hives Verified 01/23/23 10:55 [From contrast - CT, X-RAY] lubiprostone [From Amitiza] Allergy Itching Verified 01/23/23 10:55 propoxyphene Allergy Other Verified 01/23/23 10:55 [From Darvocet-N 100] acetaminophen AdvReac Other Verified 01/23/23 10:55 amoxicillin AdvReac Chest Pain Verified 01/23/23 10:55 codeine AdvReac Nausea and Verified 01/23/23 10:55 Vomiting hydrocodone AdvReac Other Verified 01/23/23 10:55 ketorolac [From Toradol] AdvReac Palpitation Verified 01/23/23 10:55 s levofloxacin [From Levaquin] AdvReac Chest Pain Verified 01/23/23 10:55 nitrofurantoin AdvReac Chest Pain Verified 01/23/23 10:55 [From Macrobid] paroxetine [From Paxil] AdvReac Other Verified 01/23/23 10:55 Penicillins AdvReac Chest Pain Verified 01/23/23 10:55 Sulfa (Sulfonamide AdvReac Chest Pain Verified 01/23/23 10:55 Antibiotics) vancomycin AdvReac Chest Pain Verified 01/23/23 10:55 Review of Systems Review of Systems: CONSTITUTIONAL: Denies fever, chills, or sweats. EYES: Denies visual changes, redness, or discharge. ENT: Denies rhinorrhea, congestion, sore throat, or otalgia. CARDIOVASCULAR: Denies chest pain, palpitations, or edema. RESPIRATORY: Denies cough or dyspnea. GASTROINTESTINAL: Denies abdominal pain, nausea, vomiting, or diarrhea. GENITOURINARY: Reports bladder spasms when voiding. Denies dysuria, urgency, frequency or hematuria. SKIN: Denies rash or itching. MUSCULOSKELETAL: Denies back pain, joint pain, or myalgia. NEUROLOGIC: Denies headache, numbness, dizziness, or weakness. PSYCHIATRIC: Denies anxiety or depression. [facility] Past Medical History Medical History Anxiety Bronchitis Constipation Depression Family history of malignant neoplasm of colon in father Genitourinary disorder Interstitial cystitis, urethral dilation GERD (gastroesophageal reflux disease) Interstitial cystitis Irritable bowel syndrome Irritable bowel syndrome with constipation Mitral valve prolapse Right hand fracture Urinary tract infection Vaginal delivery Surgical History Surgical History H/O hemorrhoidectomy H/O sinus surgery H/O tubal ligation H/O umbilical hernia repair History of facial surgery Nasal reconstruction History of hysterectomy History of orthopedic surgery Right knee, trigger release finger left hand History of tonsillectomy History of urinary tract surgery Family History Family History Grandparent Diabetes mellitus, Onset Age: 200 Cerebrovascular accident, Onset Age: 200 Father Family history of elevated blood lipids Carcinoma of colon Family history of coronary artery disease, Onset Age: 201 Patient's father is Grandparent Family history of malignant
== END 2023-01-28 11:33 | disposition home or self-care (01) ==
PROVIDERS: Emergency Provider Nurse Practitioner
DX: N32.89 Other specified disorders of bladder (principal); K21.9 Gastro-esophageal reflux disease without esophagitis; I34.1 Nonrheumatic mitral (valve) prolapse; Z87.891 Personal history of nicotine dependence
CPT/HCPCS: 81003; 87086; 99213; G0463

== ENCOUNTER 2023-02-01 11:52 | Emergency (ER) | payer BC, SELFPAY ==
[2023-02-01 11:55] VITALS: BP 120/78; PULSE 69; RESP 20; TEMP 36.7; O2SAT 100
--- NOTE | 2023-02-01 13:09 | ED.FEMALEGU ---
HPI - Female Genitourinary General Chief complaint: Urogenital-Female Stated complaint: Urinary Problem Time Seen by Provider: 02/01/23 13:10 Source: patient and RN notes reviewed Mode of arrival: ambulatory Limitations: no limitations History of Present Illness HPI Narrative: 48 year old female who presents to express care with complaints of urinary frequency and urgency and some discomfort with urination, Patient denies any fevers, chills or sweats, denies any CVA tenderness, vaginal discharge or any itching . Patient mustapha any nausea vomiting or diarrhea. Reports she is to see new urologist on Dr Avery in [place]. MD elicited complaint: dysuria Pertinent past history: interstitial cystits Onset (ago): day(s) (today) Location of symptoms: urethra Severity scale (1-10): 3 Vaginal discharge: none Related Data Home Medications Medication Instructions Recorded Confirmed No Home Medications 01/23/23 02/01/23 Allergies Allergy/AdvReac Type Severity Reaction Status Date / Time latex Allergy Mild RASH-CONDOMS Verified 02/01/23 13:16 AND GLOVES clindamycin Allergy Hives Verified 02/01/23 13:16 gadobenic acid Allergy Hives Verified 02/01/23 13:16 [From contrast - MRI] iohexol Allergy Hives Verified 02/01/23 13:16 [From contrast - CT, X-RAY] lubiprostone [From Amitiza] Allergy Itching Verified 02/01/23 13:16 propoxyphene Allergy Other Verified 02/01/23 13:16 [From Darvocet-N 100] acetaminophen AdvReac Other Verified 02/01/23 13:16 amoxicillin AdvReac Chest Pain Verified 02/01/23 13:16 codeine AdvReac Nausea and Verified 02/01/23 13:16 Vomiting hydrocodone AdvReac Other Verified 02/01/23 13:16 ketorolac [From Toradol] AdvReac Palpitation Verified 02/01/23 13:16 s levofloxacin [From Levaquin] AdvReac Chest Pain Verified 02/01/23 13:16 nitrofurantoin AdvReac Chest Pain Verified 02/01/23 13:16 [From Macrobid] paroxetine [From Paxil] AdvReac Other Verified 02/01/23 13:16 Penicillins AdvReac Chest Pain Verified 02/01/23 13:16 Sulfa (Sulfonamide AdvReac Chest Pain Verified 02/01/23 13:16 Antibiotics) vancomycin AdvReac Chest Pain Verified 02/01/23 13:16 Review of Systems Review of Systems: CONSTITUTIONAL: Denies fever, chills, or sweats. CARDIOVASCULAR: Denies chest pain, palpitations, or edema. RESPIRATORY: Denies cough or dyspnea. GASTROINTESTINAL: Denies abdominal pain, nausea, vomiting, or diarrhea. GENITOURINARY: Reports dysuria, frequency, urgency. Denies flank pain or visible hematuria. SKIN: Denies rash or itching. MUSCULOSKELETAL: Denies back pain or myalgia. Denies CVA tenderness NEUROLOGIC: Denies headache All systems reviewed & are unremarkable except as noted in HPI and below PMFSH Past Medical History Medical History Anxiety Bronchitis Constipation Depression Family history of malignant neoplasm of colon in father Genitourinary disorder Interstitial cystitis, urethral dilation GERD (gastroesophageal reflux disease) Interstitial cystitis Irritable bowel syndrome Irritable bowel syndrome with constipation Mitral valve prolapse Right hand fracture Urinary tract infection Vaginal delivery Surgical History Surgical History H/O hemorrhoidectomy H/O sinus surgery H/O tubal ligation H/O umbilical hernia repair History of facial surgery Nasal reconstruction History of hysterectomy History of orthopedic surgery Right knee, trigger release finger left hand History of tonsillectomy History of urinary tract surgery Family History Family History Grandparent Diabetes mellitus, Onset Age: 200 Cerebrovascular accident, Onset Age: 200 Father Family history of elevated blood lipids Carcinoma of colon Family history of coronary artery disease, [place]
== END 2023-02-01 13:26 | disposition home or self-care (01) ==
PROVIDERS: Emergency Provider Registered Nurse
DX: R30.0 Dysuria (principal); Z87.891 Personal history of nicotine dependence
CPT/HCPCS: 81003; 99212; G0463

== ENCOUNTER 2023-02-09 09:59 | Emergency (ER) | payer BC, SELFPAY ==
[2023-02-09 10:04] VITALS: BP 145/87; PULSE 60; RESP 20; TEMP 36.4; O2SAT 100
--- NOTE | 2023-02-09 10:53 | ED.GENADULT ---
HPI - General Adult General Chief complaint: Urogenital-Female Stated complaint: urine check Source: patient Mode of arrival: ambulatory Limitations: no limitations History of Present Illness HPI narrative: Patient presents requesting a urinalysis test. She has a history of interstitial cystitis with chronic urinary frequency. She has been seen here frequently in the past for urinary symptoms. She states she wants to make sure she does not have a urinary tract infection of the present time. She reports unchanged nature of her chronic urinary frequency. Denies any other urinary symptoms. She had some mild dull right flank pain yesterday, but she indicates that it is barely noticeable. No fever, chills, nausea, vomiting, abdominal pain, vaginal bleeding or discharge. Related Data Home Medications Medication Instructions Recorded Confirmed No Home Medications 01/23/23 02/01/23 Allergies Allergy/AdvReac Type Severity Reaction Status Date / Time latex Allergy Mild RASH-CONDOMS Verified 02/01/23 13:16 AND GLOVES clindamycin Allergy Hives Verified 02/01/23 13:16 gadobenic acid Allergy Hives Verified 02/01/23 13:16 [From contrast - MRI] iohexol Allergy Hives Verified 02/01/23 13:16 [From contrast - CT, X-RAY] lubiprostone [From Amitiza] Allergy Itching Verified 02/01/23 13:16 propoxyphene Allergy Other Verified 02/01/23 13:16 [From Darvocet-N 100] acetaminophen AdvReac Other Verified 02/01/23 13:16 amoxicillin AdvReac Chest Pain Verified 02/01/23 13:16 codeine AdvReac Nausea and Verified 02/01/23 13:16 Vomiting hydrocodone AdvReac Other Verified 02/01/23 13:16 ketorolac [From Toradol] AdvReac Palpitation Verified 02/01/23 13:16 s levofloxacin [From Levaquin] AdvReac Chest Pain Verified 02/01/23 13:16 nitrofurantoin AdvReac Chest Pain Verified 02/01/23 13:16 [From Macrobid] paroxetine [From Paxil] AdvReac Other Verified 02/01/23 13:16 Penicillins AdvReac Chest Pain Verified 02/01/23 13:16 Sulfa (Sulfonamide AdvReac Chest Pain Verified 02/01/23 13:16 Antibiotics) vancomycin AdvReac Chest Pain Verified 02/01/23 13:16 Review of Systems Review of Systems: CONSTITUTIONAL: Denies fever, chills, or sweats. EYES: Denies visual changes, redness, or discharge. ENT: Denies rhinorrhea, congestion, sore throat, or otalgia. CARDIOVASCULAR: Denies chest pain, palpitations, or edema. RESPIRATORY: Denies cough or dyspnea. GASTROINTESTINAL: Denies abdominal pain, nausea, vomiting, or diarrhea. GENITOURINARY: Reports chronic urinary frequency, unchanged from baseline SKIN: Denies rash or itching. MUSCULOSKELETAL: Reports mild dull right sided flank pain. Denies\ joint pain, or myalgia. NEUROLOGIC: Denies headache, numbness, dizziness, or weakness. PSYCHIATRIC: Denies anxiety or depression. [facility] Past Medical History Medical History Anxiety Bronchitis Constipation Depression Family history of malignant neoplasm of colon in father Genitourinary disorder Interstitial cystitis, urethral dilation GERD (gastroesophageal reflux disease) Interstitial cystitis Irritable bowel syndrome Irritable bowel syndrome with constipation Mitral valve prolapse Right hand fracture Urinary tract infection Vaginal delivery Surgical History Surgical History H/O hemorrhoidectomy H/O sinus surgery H/O tubal ligation H/O umbilical hernia repair History of facial surgery Nasal reconstruction History of hysterectomy History of orthopedic surgery Right knee, trigger release finger left hand History of tonsillectomy History of urinary tract surgery Family History Family History Grandparent Diabetes mellitus, Onset Age: 200 Cerebrovascular accident, Onset Age: 200 Father Family history of eleva
== END 2023-02-09 11:12 | disposition home or self-care (01) ==
PROVIDERS: Emergency Provider Nurse Practitioner
DX: N30.10 Interstitial cystitis (chronic) without hematuria (principal); Z87.891 Personal history of nicotine dependence
CPT/HCPCS: 81003; 99212; G0463

== ENCOUNTER 2023-02-19 09:54 | Emergency (ER) | payer BC, SELFPAY ==
[2023-02-19 09:59] VITALS: BP 130/65; PULSE 80; RESP 16; TEMP 37.2; O2SAT 100
--- NOTE | 2023-02-19 10:09 | ED.GENADULT ---
HPI - General Adult General Chief complaint: Urogenital-Female Stated complaint: urine check Source: patient and RN notes reviewed History of Present Illness HPI narrative: 48 yo F presents to urgent care with complaints of dysuria. Pt states she had a uroscopy 2 days ago with no abnormal findings. Pt states she was placed on an Abx and forgot to take last night's pill. Pt denies any fevers, chills, N/V/D, or other complaints. Related Data Home Medications Medication Instructions Recorded Confirmed sulfamethoxazole 800 See Rx Instructions .Route .COMPLEX 02/19/23 02/19/23 mg-trimethoprim 160 mg tablet Allergies Allergy/AdvReac Type Severity Reaction Status Date / Time latex Allergy Mild RASH-CONDOMS Verified 02/19/23 10:00 AND GLOVES clindamycin Allergy Hives Verified 02/19/23 10:00 gadobenic acid Allergy Hives Verified 02/19/23 10:00 [From contrast - MRI] iohexol Allergy Hives Verified 02/19/23 10:00 [From contrast - CT, X-RAY] lubiprostone [From Amitiza] Allergy Itching Verified 02/19/23 10:00 propoxyphene Allergy Other Verified 02/19/23 10:00 [From Darvocet-N 100] acetaminophen AdvReac Other Verified 02/19/23 10:00 amoxicillin AdvReac Chest Pain Verified 02/19/23 10:00 codeine AdvReac Nausea and Verified 02/19/23 10:00 Vomiting hydrocodone AdvReac Other Verified 02/19/23 10:00 ketorolac [From Toradol] AdvReac Palpitation Verified 02/01/23 13:16 s levofloxacin [From Levaquin] AdvReac Chest Pain Verified 02/01/23 13:16 nitrofurantoin AdvReac Chest Pain Verified 02/01/23 13:16 [From Macrobid] paroxetine [From Paxil] AdvReac Other Verified 02/01/23 13:16 Penicillins AdvReac Chest Pain Verified 02/01/23 13:16 Sulfa (Sulfonamide AdvReac Chest Pain Verified 02/01/23 13:16 Antibiotics) vancomycin AdvReac Chest Pain Verified 02/01/23 13:16 Review of Systems Review of Systems: Pertinent positives and pertinent negatives per HPI. [facility] Past Medical History Medical History Anxiety Bronchitis Constipation Depression Family history of malignant neoplasm of colon in father Genitourinary disorder Interstitial cystitis, urethral dilation GERD (gastroesophageal reflux disease) Interstitial cystitis Irritable bowel syndrome Irritable bowel syndrome with constipation Mitral valve prolapse Right hand fracture Urinary tract infection Vaginal delivery Surgical History Surgical History H/O hemorrhoidectomy H/O sinus surgery H/O tubal ligation H/O umbilical hernia repair History of facial surgery Nasal reconstruction History of hysterectomy History of orthopedic surgery Right knee, trigger release finger left hand History of tonsillectomy History of urinary tract surgery Family History Family History Grandparent Diabetes mellitus, Onset Age: 200 Cerebrovascular accident, Onset Age: 200 Father Family history of elevated blood lipids Carcinoma of colon Family history of coronary artery disease, Onset Age: 201 Patient's father is Grandparent Family history of malignant neoplasm Diabetes mellitus Cerebrovascular accident Hypertension Family history of cardiovascular disease Father Family history of congestive heart failure Patient's father is Hypertension Carcinoma of colon Family history of emphysema Family history of cardiovascular disease Sibling Hypertension Grandparent Diabetes mellitus Social History Social History Social History: no caffeine use Smoking packs per day: 1.5 Smoking cigarettes per day: 30.0 Years smoked: 13 Smoking pack-years: 19.50 Smoking status: Former smoker Tobacco type: cigarettes Second hand tobacco smoke exp
== END 2023-02-19 10:25 | disposition home or self-care (01) ==
PROVIDERS: Emergency Provider Nurse Practitioner Family
DX: R30.0 Dysuria (principal); Z87.891 Personal history of nicotine dependence; K21.9 Gastro-esophageal reflux disease without esophagitis; I34.1 Nonrheumatic mitral (valve) prolapse
CPT/HCPCS: 81003; 99212; G0463

== ENCOUNTER 2023-02-24 08:02 | Emergency (ER) | payer BC, SELFPAY ==
[2023-02-24 08:08] VITALS: BP 116/73; PULSE 74; RESP 20; TEMP 36.6; O2SAT 100
--- NOTE | 2023-02-24 08:33 | ED.GENADULT ---
HPI - General Adult General Chief complaint: Urogenital-Female Stated complaint: Urinary Problem Source: patient and RN notes reviewed History of Present Illness HPI narrative: 48 yo F presents to urgent care with complaints of lower abdominal discomfort x 3 days. Pt denies any fevers, chills, vomiting, dysuria, or back pain. Pt was recently taking Bactrim this past week for UTI. Pt was seen at [facility] ED last night for same thing where her urine was cultured, per pt. Related Data Allergies Allergy/AdvReac Type Severity Reaction Status Date / Time latex Allergy Mild RASH-CONDOMS Verified 02/24/23 08:14 AND GLOVES clindamycin Allergy Hives Verified 02/24/23 08:14 gadobenic acid Allergy Hives Verified 02/24/23 08:14 [From contrast - MRI] iohexol Allergy Hives Verified 02/24/23 08:14 [From contrast - CT, X-RAY] lubiprostone [From Amitiza] Allergy Itching Verified 02/24/23 08:14 propoxyphene Allergy Other Verified 02/24/23 08:14 [From Darvocet-N 100] acetaminophen AdvReac Other Verified 02/24/23 08:14 amoxicillin AdvReac Chest Pain Verified 02/24/23 08:14 codeine AdvReac Nausea and Verified 02/24/23 08:14 Vomiting hydrocodone AdvReac Other Verified 02/24/23 08:14 ketorolac [From Toradol] AdvReac Palpitation Verified 02/24/23 08:14 s levofloxacin [From Levaquin] AdvReac Chest Pain Verified 02/24/23 08:14 nitrofurantoin AdvReac Chest Pain Verified 02/24/23 08:14 [From Macrobid] paroxetine [From Paxil] AdvReac Other Verified 02/24/23 08:14 Penicillins AdvReac Chest Pain Verified 02/24/23 08:14 Sulfa (Sulfonamide AdvReac Chest Pain Verified 02/24/23 08:14 Antibiotics) vancomycin AdvReac Chest Pain Verified 02/24/23 08:14 Review of Systems Review of Systems: Pertinent positives and pertinent negatives per HPI. PMFSH Past Medical History Medical History Anxiety Bronchitis Constipation Depression Family history of malignant neoplasm of colon in father Genitourinary disorder Interstitial cystitis, urethral dilation GERD (gastroesophageal reflux disease) Interstitial cystitis Irritable bowel syndrome Irritable bowel syndrome with constipation Mitral valve prolapse Right hand fracture Urinary tract infection Vaginal delivery Surgical History Surgical History H/O hemorrhoidectomy H/O sinus surgery H/O tubal ligation H/O umbilical hernia repair History of facial surgery Nasal reconstruction History of hysterectomy History of orthopedic surgery Right knee, trigger release finger left hand History of tonsillectomy History of urinary tract surgery Family History Family History Grandparent Diabetes mellitus, Onset Age: 200 Cerebrovascular accident, Onset Age: 200 Father Family history of elevated blood lipids Carcinoma of colon Family history of coronary artery disease, Onset Age: 201 Patient's father is Grandparent Family history of malignant neoplasm Diabetes mellitus Cerebrovascular accident Hypertension Family history of cardiovascular disease Father Family history of congestive heart failure Patient's father is Hypertension Carcinoma of colon Family history of emphysema Family history of cardiovascular disease Sibling Hypertension Grandparent Diabetes mellitus Social History Social History Social History: no caffeine use Smoking packs per day: 1.5 Smoking cigarettes per day: 30.0 Years smoked: 13 Smoking pack-years: 19.50 Smoking status: Former smoker Tobacco type: cigarettes Second hand tobacco smoke exposure: No Smoking end date: 07/06/10 Alcohol intake: never Substance use: never Living arrangements: with family Additio
== END 2023-02-24 08:35 | disposition home or self-care (01) ==
PROVIDERS: Emergency Provider Nurse Practitioner Family
DX: N30.10 Interstitial cystitis (chronic) without hematuria (principal); Z87.891 Personal history of nicotine dependence
CPT/HCPCS: 81003; 99212; G0463

== ENCOUNTER 2023-03-05 10:47 | Emergency (ER) | payer BC, SELFPAY ==
[2023-03-05 10:50] VITALS: BP 141/87; PULSE 63; RESP 16; TEMP 36.9; O2SAT 100
--- NOTE | 2023-03-05 10:51 | ED.GENADULT ---
HPI - General Adult General Chief complaint: Urogenital-Female Stated complaint: Urinary Problem Source: patient and RN notes reviewed History of Present Illness HPI narrative: 48 yo F presents to urgent care with complaints of bladder spasms the last couple days. Denies any back pain or dysuria. Pt denies any fevers, chills, or vomiting. Related Data Home Medications Medication Instructions Recorded Confirmed No Home Medications 03/05/23 03/05/23 Allergies Allergy/AdvReac Type Severity Reaction Status Date / Time latex Allergy Mild RASH-CONDOMS Verified 02/24/23 08:14 AND GLOVES clindamycin Allergy Hives Verified 02/24/23 08:14 gadobenic acid Allergy Hives Verified 02/24/23 08:14 [From contrast - MRI] iohexol Allergy Hives Verified 02/24/23 08:14 [From contrast - CT, X-RAY] lubiprostone [From Amitiza] Allergy Itching Verified 02/24/23 08:14 propoxyphene Allergy Other Verified 02/24/23 08:14 [From Darvocet-N 100] acetaminophen AdvReac Other Verified 02/24/23 08:14 amoxicillin AdvReac Chest Pain Verified 02/24/23 08:14 codeine AdvReac Nausea and Verified 02/24/23 08:14 Vomiting hydrocodone AdvReac Other Verified 02/24/23 08:14 ketorolac [From Toradol] AdvReac Palpitation Verified 02/24/23 08:14 s levofloxacin [From Levaquin] AdvReac Chest Pain Verified 02/24/23 08:14 nitrofurantoin AdvReac Chest Pain Verified 02/24/23 08:14 [From Macrobid] paroxetine [From Paxil] AdvReac Other Verified 02/24/23 08:14 Penicillins AdvReac Chest Pain Verified 02/24/23 08:14 Sulfa (Sulfonamide AdvReac Chest Pain Verified 02/24/23 08:14 Antibiotics) vancomycin AdvReac Chest Pain Verified 02/24/23 08:14 Review of Systems Review of Systems: Pertinent positives and pertinent negatives per HPI. PMFSH Past Medical History Medical History Anxiety Bronchitis Constipation Depression Family history of malignant neoplasm of colon in father Genitourinary disorder Interstitial cystitis, urethral dilation GERD (gastroesophageal reflux disease) Interstitial cystitis Irritable bowel syndrome Irritable bowel syndrome with constipation Mitral valve prolapse Right hand fracture Urinary tract infection Vaginal delivery Surgical History Surgical History H/O hemorrhoidectomy H/O sinus surgery H/O tubal ligation H/O umbilical hernia repair History of facial surgery Nasal reconstruction History of hysterectomy History of orthopedic surgery Right knee, trigger release finger left hand History of tonsillectomy History of urinary tract surgery Family History Family History Grandparent Diabetes mellitus, Onset Age: 200 Cerebrovascular accident, Onset Age: 200 Father Family history of elevated blood lipids Carcinoma of colon Family history of coronary artery disease, Onset Age: 201 Patient's father is Grandparent Family history of malignant neoplasm Diabetes mellitus Cerebrovascular accident Hypertension Family history of cardiovascular disease Father Family history of congestive heart failure Patient's father is Hypertension Carcinoma of colon Family history of emphysema Family history of cardiovascular disease Sibling Hypertension Grandparent Diabetes mellitus Social History Social History Social History: no caffeine use Smoking packs per day: 1.5 Smoking cigarettes per day: 30.0 Years smoked: 13 Smoking pack-years: 19.50 Smoking status: Former smoker Tobacco type: cigarettes Second hand tobacco smoke exposure: No Smoking end date: 07/06/10 Alcohol intake: never Substance use: never Living arrangements: with family Additional living arrangements comm
== END 2023-03-05 11:10 | disposition home or self-care (01) ==
PROVIDERS: Emergency Provider Nurse Practitioner Family
DX: N30.90 Cystitis, unspecified without hematuria (principal); Z87.891 Personal history of nicotine dependence; K21.9 Gastro-esophageal reflux disease without esophagitis; I34.1 Nonrheumatic mitral (valve) prolapse
CPT/HCPCS: 81003; 99212; G0463

== ENCOUNTER 2023-03-06 12:14 | Emergency (ER) | payer BC, SELFPAY ==
[2023-03-06 12:24] VITALS: BP 131/95; PULSE 65; RESP 16; TEMP 36.9; O2SAT 100
--- NOTE | 2023-03-06 13:06 | ED.FEMALEGU ---
HPI - Female Genitourinary General Chief complaint: Urogenital-Female Stated complaint: Urinary Problem Time Seen by Provider: 03/06/23 12:50 Source: patient and RN notes reviewed Mode of arrival: ambulatory Limitations: no limitations History of Present Illness HPI Narrative: Patient presents today complaining of dysuria and urinary urgency since this morning. Patient has history of chronic interstitial cystitis infrequent urgent care visits regarding this. She was here yesterday with similar symptoms and her urinalysis was negative. Today she returned because she was not having dysuria yesterday. Yesterday her urinalysis was negative, although patient frequently has trace hematuria. Patient recently had a cystoscopy and dilation a few months ago. Related Data Home Medications Medication Instructions Recorded Confirmed No Home Medications 03/05/23 03/05/23 Allergies Allergy/AdvReac Type Severity Reaction Status Date / Time latex Allergy Mild RASH-CONDOMS Verified 02/24/23 08:14 AND GLOVES clindamycin Allergy Hives Verified 02/24/23 08:14 gadobenic acid Allergy Hives Verified 02/24/23 08:14 [From contrast - MRI] iohexol Allergy Hives Verified 02/24/23 08:14 [From contrast - CT, X-RAY] lubiprostone [From Amitiza] Allergy Itching Verified 02/24/23 08:14 propoxyphene Allergy Other Verified 02/24/23 08:14 [From Darvocet-N 100] acetaminophen AdvReac Other Verified 02/24/23 08:14 amoxicillin AdvReac Chest Pain Verified 02/24/23 08:14 codeine AdvReac Nausea and Verified 02/24/23 08:14 Vomiting hydrocodone AdvReac Other Verified 02/24/23 08:14 ketorolac [From Toradol] AdvReac Palpitation Verified 02/24/23 08:14 s levofloxacin [From Levaquin] AdvReac Chest Pain Verified 02/24/23 08:14 nitrofurantoin AdvReac Chest Pain Verified 02/24/23 08:14 [From Macrobid] paroxetine [From Paxil] AdvReac Other Verified 02/24/23 08:14 Penicillins AdvReac Chest Pain Verified 02/24/23 08:14 Sulfa (Sulfonamide AdvReac Chest Pain Verified 02/24/23 08:14 Antibiotics) vancomycin AdvReac Chest Pain Verified 02/24/23 08:14 Review of Systems Review of Systems: CONSTITUTIONAL: Denies body aches, fever, chills, or sweats. EYES: Denies visual changes, redness, or discharge. ENT: Denies rhinorrhea, congestion, sore throat, or otalgia. CARDIOVASCULAR: Denies chest pain, palpitations, or edema. RESPIRATORY: Denies cough or dyspnea. GASTROINTESTINAL: Denies abdominal pain, nausea, vomiting, or diarrhea. GENITOURINARY:+ dysuria, urgency SKIN: Denies rash, itching, or wounds. MUSCULOSKELETAL: Denies back pain, joint pain, or myalgia. NEUROLOGIC: Denies headache, numbness, tingling, or weakness. PSYCH: Denies depression or anxiety. [facility] Past Medical History Medical History Anxiety Bronchitis Constipation Depression Family history of malignant neoplasm of colon in father Genitourinary disorder Interstitial cystitis, urethral dilation GERD (gastroesophageal reflux disease) Interstitial cystitis Irritable bowel syndrome Irritable bowel syndrome with constipation Mitral valve prolapse Right hand fracture Urinary tract infection Vaginal delivery Surgical History Surgical History H/O hemorrhoidectomy H/O sinus surgery H/O tubal ligation H/O umbilical hernia repair History of facial surgery Nasal reconstruction History of hysterectomy History of orthopedic surgery Right knee, trigger release finger left hand History of tonsillectomy History of urinary tract surgery Family History Family History Grandparent Diabetes mellitus, Onset Age: 200 Cerebrovascular accident, Onset Age: 200 Father Family history of elevated blood lipids Carcinoma of colon Family history of coronary artery di
== END 2023-03-06 13:12 | disposition home or self-care (01) ==
PROVIDERS: Emergency Provider Nurse Practitioner
DX: N30.90 Cystitis, unspecified without hematuria (principal); Z87.891 Personal history of nicotine dependence; K21.9 Gastro-esophageal reflux disease without esophagitis; I34.1 Nonrheumatic mitral (valve) prolapse; F41.9 Anxiety disorder, unspecified; F32.A Depression, unspecified
CPT/HCPCS: 81003; 87086; 87088; 99213; G0463

== ENCOUNTER 2023-03-08 08:03 | Emergency (ER) | payer BC, SELFPAY ==
[2023-03-08 08:12] VITALS: BP 139/91; PULSE 78; RESP 16; TEMP 36; O2SAT 100
--- NOTE | 2023-03-08 08:20 | ED.FEMALEGU ---
HPI - Female Genitourinary General Chief complaint: Urogenital-Female Stated complaint: UTI SYMPTOMS Time Seen by Provider: 03/08/23 08:15 Source: patient Mode of arrival: ambulatory Limitations: no limitations History of Present Illness HPI Narrative: Yaquelin is a 48-year-old female patient presenting to the clinic today for UTI symptoms. She reports over the last few days she has had some burning, urgency, and frequency. She denies any flank pain. She denies any fever chills. History of IBS and chronic interstitial cystitis. Related Data Home Medications Medication Instructions Recorded Confirmed No Home Medications 03/05/23 03/08/23 Allergies Allergy/AdvReac Type Severity Reaction Status Date / Time latex Allergy Mild RASH-CONDOMS Verified 03/08/23 08:18 AND GLOVES clindamycin Allergy Hives Verified 03/08/23 08:18 gadobenic acid Allergy Hives Verified 03/08/23 08:18 [From contrast - MRI] iohexol Allergy Hives Verified 03/08/23 08:18 [From contrast - CT, X-RAY] lubiprostone [From Amitiza] Allergy Itching Verified 03/08/23 08:18 propoxyphene Allergy Other Verified 03/08/23 08:18 [From Darvocet-N 100] acetaminophen AdvReac Other Verified 03/08/23 08:18 amoxicillin AdvReac Chest Pain Verified 03/08/23 08:18 codeine AdvReac Nausea and Verified 03/08/23 08:18 Vomiting hydrocodone AdvReac Other Verified 03/08/23 08:18 ketorolac [From Toradol] AdvReac Palpitation Verified 03/08/23 08:18 s levofloxacin [From Levaquin] AdvReac Chest Pain Verified 03/08/23 08:18 nitrofurantoin AdvReac Chest Pain Verified 03/08/23 08:18 [From Macrobid] paroxetine [From Paxil] AdvReac Other Verified 03/08/23 08:18 Penicillins AdvReac Chest Pain Verified 03/08/23 08:18 Sulfa (Sulfonamide AdvReac Chest Pain Verified 03/08/23 08:18 Antibiotics) vancomycin AdvReac Chest Pain Verified 03/08/23 08:18 Review of Systems Review of Systems: Pertinent positives per HPI. Patient denies any fever, chills, rash, headache, visual changes, dizziness, cough, runny nose, sore throat, shortness of breath, chest pain, palpitations, nausea, vomiting, diarrhea, constipation, or any abdominal pain. [facility] Past Medical History Medical History Anxiety Bronchitis Constipation Depression Family history of malignant neoplasm of colon in father Genitourinary disorder Interstitial cystitis, urethral dilation GERD (gastroesophageal reflux disease) Interstitial cystitis Irritable bowel syndrome Irritable bowel syndrome with constipation Mitral valve prolapse Right hand fracture Urinary tract infection Vaginal delivery Surgical History Surgical History H/O hemorrhoidectomy H/O sinus surgery H/O tubal ligation H/O umbilical hernia repair History of facial surgery Nasal reconstruction History of hysterectomy History of orthopedic surgery Right knee, trigger release finger left hand History of tonsillectomy History of urinary tract surgery Family History Family History Grandparent Diabetes mellitus, Onset Age: 200 Cerebrovascular accident, Onset Age: 200 Father Family history of elevated blood lipids Carcinoma of colon Family history of coronary artery disease, Onset Age: 201 Patient's father is Grandparent Family history of malignant neoplasm Diabetes mellitus Cerebrovascular accident Hypertension Family history of cardiovascular disease Father Family history of congestive heart failure Patient's father is Hypertension Carcinoma of colon Family history of emphysema Family history of cardiovascular disease Sibling Hypertension Grandparent Diabetes mellitus Social History Social History Social Hi
== END 2023-03-08 08:30 | disposition home or self-care (01) ==
PROVIDERS: Emergency Provider Nurse Practitioner Family; PCP Nurse Practitioner Family
DX: N30.10 Interstitial cystitis (chronic) without hematuria (principal); Z87.891 Personal history of nicotine dependence; K21.9 Gastro-esophageal reflux disease without esophagitis; I34.1 Nonrheumatic mitral (valve) prolapse
CPT/HCPCS: 81003; 99212; G0463

== ENCOUNTER 2023-03-11 12:31 | Emergency (ER) | payer BC, SELFPAY ==
--- NOTE | 2023-03-11 12:35 | ED.FEMALEGU ---
HPI - Female Genitourinary General Chief complaint: Urogenital-Female Stated complaint: Urinary Problem Time Seen by Provider: 03/11/23 12:35 Source: patient and RN notes reviewed History of Present Illness HPI Narrative: Patient is a 48-year-old female who presents to urgent care with complaints of urinary frequency, urgency. This is a chronic issue for the patient however states that it has been increased this week. No other acute complaints. No acute distress noted. Patient aware of the plan of care. Some parts of this dictation were generated by voice recognition software and may contain typographical and/or grammatical inaccuracies. Related Data Home Medications Medication Instructions Recorded Confirmed orphenadrine citrate 100 mg 100 mg PO DAILY 03/11/23 03/11/23 tablet,extended release Allergies Allergy/AdvReac Type Severity Reaction Status Date / Time latex Allergy Mild RASH-CONDOMS Verified 03/11/23 12:42 AND GLOVES clindamycin Allergy Hives Verified 03/11/23 12:42 gadobenic acid Allergy Hives Verified 03/11/23 12:42 [From contrast - MRI] iohexol Allergy Hives Verified 03/11/23 12:42 [From contrast - CT, X-RAY] lubiprostone [From Amitiza] Allergy Itching Verified 03/11/23 12:42 propoxyphene Allergy Other Verified 03/11/23 12:42 [From Darvocet-N 100] acetaminophen AdvReac Other Verified 03/11/23 12:42 amoxicillin AdvReac Chest Pain Verified 03/11/23 12:42 codeine AdvReac Nausea and Verified 03/11/23 12:42 Vomiting hydrocodone AdvReac Other Verified 03/11/23 12:42 ketorolac [From Toradol] AdvReac Palpitation Verified 03/11/23 12:42 s levofloxacin [From Levaquin] AdvReac Chest Pain Verified 03/11/23 12:42 nitrofurantoin AdvReac Chest Pain Verified 03/11/23 12:42 [From Macrobid] paroxetine [From Paxil] AdvReac Other Verified 03/11/23 12:42 Penicillins AdvReac Chest Pain Verified 03/11/23 12:42 Sulfa (Sulfonamide AdvReac Chest Pain Verified 03/11/23 12:42 Antibiotics) vancomycin AdvReac Chest Pain Verified 03/11/23 12:42 Review of Systems Review of Systems: CONSTITUTIONAL: Denies fever, chills, or sweats. EYES: Denies visual changes, redness, or discharge. ENT: Denies rhinorrhea, congestion, sore throat, or otalgia. CARDIOVASCULAR: Denies chest pain, palpitations, or edema. RESPIRATORY: Denies cough or dyspnea. GASTROINTESTINAL: Denies abdominal pain, nausea, vomiting, or diarrhea. GENITOURINARY: Reports of increased urination and frequency SKIN: Denies rash or itching. MUSCULOSKELETAL: Denies back pain, joint pain, or myalgia. NEUROLOGIC: Denies headache, numbness, or weakness. All other systems reviewed are negative, except as documented in HPI. [facility] Past Medical History Medical History Anxiety Bronchitis Constipation Depression Family history of malignant neoplasm of colon in father Genitourinary disorder Interstitial cystitis, urethral dilation GERD (gastroesophageal reflux disease) Interstitial cystitis Irritable bowel syndrome Irritable bowel syndrome with constipation Mitral valve prolapse Right hand fracture Urinary tract infection Vaginal delivery Surgical History Surgical History H/O hemorrhoidectomy H/O sinus surgery H/O tubal ligation H/O umbilical hernia repair History of facial surgery Nasal reconstruction History of hysterectomy History of orthopedic surgery Right knee, trigger release finger left hand History of tonsillectomy History of urinary tract surgery Family History Family History Grandparent Diabetes mellitus, Onset Age: 200 Cerebrovascular accident, Onset Age: 200 Father Family history of elevated blood lipids Carcinoma of colon Family history of coronary artery disease, Onset Age: 201 Patient's
[2023-03-11 12:40] VITALS: BP 132/86; PULSE 79; RESP 16; TEMP 36.6; O2SAT 100
== END 2023-03-11 13:16 | disposition home or self-care (01) ==
PROVIDERS: Emergency Provider Nurse Practitioner Family
DX: N30.90 Cystitis, unspecified without hematuria (principal); Z87.891 Personal history of nicotine dependence; K21.9 Gastro-esophageal reflux disease without esophagitis; I34.1 Nonrheumatic mitral (valve) prolapse
CPT/HCPCS: 81003; 99213; G0463

== ENCOUNTER 2023-03-20 10:34 | Emergency (ER) | payer BC, SELFPAY ==
[2023-03-20 10:44] VITALS: BP 123/77; PULSE 63; RESP 16; TEMP 36.3; O2SAT 100
--- NOTE | 2023-03-20 10:46 | ED.FEMALEGU ---
HPI - Female Genitourinary General Chief complaint: Urogenital-Female Stated complaint: Urinary Problem Source: patient and RN notes reviewed History of Present Illness HPI Narrative: Patient is a 48-year-old female with complaints of intermittent dysuria and urinary frequency for the past 2 days. Denies flank pain and hematuria. She denies abdominal pain, nausea, vomiting, and diarrhea. Denies recent fevers or chills. Patient has history of chronic interstitial cystitis. Related Data Home Medications Medication Instructions Recorded Confirmed No Home Medications 03/20/23 03/20/23 Allergies Allergy/AdvReac Type Severity Reaction Status Date / Time latex Allergy Mild RASH-CONDOMS Verified 03/20/23 10:43 AND GLOVES clindamycin Allergy Hives Verified 03/20/23 10:43 gadobenic acid Allergy Hives Verified 03/20/23 10:43 [From contrast - MRI] iohexol Allergy Hives Verified 03/20/23 10:43 [From contrast - CT, X-RAY] lubiprostone [From Amitiza] Allergy Itching Verified 03/20/23 10:43 propoxyphene Allergy Other Verified 03/20/23 10:43 [From Darvocet-N 100] acetaminophen AdvReac Other Verified 03/20/23 10:43 amoxicillin AdvReac Chest Pain Verified 03/20/23 10:43 codeine AdvReac Nausea and Verified 03/20/23 10:43 Vomiting hydrocodone AdvReac Other Verified 03/20/23 10:43 ketorolac [From Toradol] AdvReac Palpitation Verified 03/20/23 10:43 s levofloxacin [From Levaquin] AdvReac Chest Pain Verified 03/20/23 10:43 nitrofurantoin AdvReac Chest Pain Verified 03/20/23 10:43 [From Macrobid] paroxetine [From Paxil] AdvReac Other Verified 03/20/23 10:43 Penicillins AdvReac Chest Pain Verified 03/20/23 10:43 Sulfa (Sulfonamide AdvReac Chest Pain Verified 03/20/23 10:43 Antibiotics) vancomycin AdvReac Chest Pain Verified 03/20/23 10:43 Review of Systems Review of Systems: CONSTITUTIONAL: Denies fever, chills, or sweats. EYES: Denies visual changes, redness, or discharge. ENT: Denies otalgia and sore throat CARDIOVASCULAR: Denies chest pain, palpitations, or edema. RESPIRATORY: Denies cough or dyspnea. GASTROINTESTINAL: Denies abdominal pain, nausea, vomiting, or diarrhea. GENITOURINARY: Reports frequency and intermittent dysuria. Denies hematuria. SKIN: Denies rash or itching. MUSCULOSKELETAL: Denies back pain, joint pain, or myalgia. NEUROLOGIC: Denies headache, numbness, or weakness. Pertinent positives per HPI. [facility], LAT[facility] Past Medical History Medical History Anxiety Bronchitis Constipation Depression Family history of malignant neoplasm of colon in father Genitourinary disorder Interstitial cystitis, urethral dilation GERD (gastroesophageal reflux disease) Interstitial cystitis Irritable bowel syndrome Irritable bowel syndrome with constipation Mitral valve prolapse Right hand fracture Urinary tract infection Vaginal delivery Surgical History Surgical History H/O hemorrhoidectomy H/O sinus surgery H/O tubal ligation H/O umbilical hernia repair History of facial surgery Nasal reconstruction History of hysterectomy History of orthopedic surgery Right knee, trigger release finger left hand History of tonsillectomy History of urinary tract surgery Family History Family History Grandparent Diabetes mellitus, Onset Age: 200 Cerebrovascular accident, Onset Age: 200 Father Family history of elevated blood lipids Carcinoma of colon Family history of coronary artery disease, Onset Age: 201 Patient's father is Grandparent Family history of malignant neoplasm Diabetes mellitus Cerebrovascular accident Hypertension Family history of cardiovascular disease Father Family history of congestive heart failure Patient's father is Hypertension
== END 2023-03-20 11:10 | disposition home or self-care (01) ==
PROVIDERS: Emergency Provider Nurse Practitioner
DX: N30.90 Cystitis, unspecified without hematuria (principal); Z87.891 Personal history of nicotine dependence
CPT/HCPCS: 81003; 99212; G0463

== ENCOUNTER 2023-03-22 13:49 | Emergency (ER) | payer BC, SELFPAY ==
--- NOTE | 2023-03-22 13:52 | ED.GENADULT ---
HPI - General Adult General Chief complaint: Urogenital-Female Stated complaint: UTI SYMPTOMS Source: patient and RN notes reviewed History of Present Illness HPI narrative: Yaquelin presents today for complaints of strong-smelling urine. Pt states every time she wipes her hemorrhoids, she urinates. Denies any fevers, chills, abdominal pain, back pain, or vomiting. Related Data Home Medications Medication Instructions Recorded Confirmed No Home Medications 03/20/23 03/22/23 Allergies Allergy/AdvReac Type Severity Reaction Status Date / Time latex Allergy Mild RASH-CONDOMS Verified 03/22/23 13:53 AND GLOVES clindamycin Allergy Hives Verified 03/22/23 13:53 gadobenic acid Allergy Hives Verified 03/22/23 13:53 [From contrast - MRI] iohexol Allergy Hives Verified 03/22/23 13:53 [From contrast - CT, X-RAY] lubiprostone [From Amitiza] Allergy Itching Verified 03/22/23 13:53 propoxyphene Allergy Other Verified 03/22/23 13:53 [From Darvocet-N 100] acetaminophen AdvReac Other Verified 03/22/23 13:53 amoxicillin AdvReac Chest Pain Verified 03/22/23 13:53 codeine AdvReac Nausea and Verified 03/22/23 13:53 Vomiting hydrocodone AdvReac Other Verified 03/22/23 13:53 ketorolac [From Toradol] AdvReac Palpitation Verified 03/22/23 13:53 s levofloxacin [From Levaquin] AdvReac Chest Pain Verified 03/22/23 13:53 nitrofurantoin AdvReac Chest Pain Verified 03/22/23 13:53 [From Macrobid] paroxetine [From Paxil] AdvReac Other Verified 03/22/23 13:53 Penicillins AdvReac Chest Pain Verified 03/22/23 13:53 Sulfa (Sulfonamide AdvReac Chest Pain Verified 03/22/23 13:53 Antibiotics) vancomycin AdvReac Chest Pain Verified 03/22/23 13:53 Review of Systems Review of Systems: Pertinent positives and pertinent negatives per HPI. PMFSH Past Medical History Medical History Anxiety Bronchitis Constipation Depression Family history of malignant neoplasm of colon in father Genitourinary disorder Interstitial cystitis, urethral dilation GERD (gastroesophageal reflux disease) Interstitial cystitis Irritable bowel syndrome Irritable bowel syndrome with constipation Mitral valve prolapse Right hand fracture Urinary tract infection Vaginal delivery Surgical History Surgical History H/O hemorrhoidectomy H/O sinus surgery H/O tubal ligation H/O umbilical hernia repair History of facial surgery Nasal reconstruction History of hysterectomy History of orthopedic surgery Right knee, trigger release finger left hand History of tonsillectomy History of urinary tract surgery Family History Family History Grandparent Diabetes mellitus, Onset Age: 200 Cerebrovascular accident, Onset Age: 200 Father Family history of elevated blood lipids Carcinoma of colon Family history of coronary artery disease, Onset Age: 201 Patient's father is Grandparent Family history of malignant neoplasm Diabetes mellitus Cerebrovascular accident Hypertension Family history of cardiovascular disease Father Family history of congestive heart failure Patient's father is Hypertension Carcinoma of colon Family history of emphysema Family history of cardiovascular disease Sibling Hypertension Grandparent Diabetes mellitus Social History Social History Social History: no caffeine use Smoking packs per day: 1.5 Smoking cigarettes per day: 30.0 Years smoked: 13 Smoking pack-years: 19.50 Smoking status: Former smoker Tobacco type: cigarettes Second hand tobacco smoke exposure: No Smoking end date: 07/06/10 Alcohol intake: never Substance use: never Living arrangements: with family Additional evaristo
[2023-03-22 14:08] VITALS: BP 118/90; PULSE 87; RESP 16; TEMP 36.2; O2SAT 100
== END 2023-03-22 14:22 | disposition home or self-care (01) ==
PROVIDERS: Emergency Provider Nurse Practitioner Family; PCP Nurse Practitioner Family
DX: N30.90 Cystitis, unspecified without hematuria (principal); Z87.891 Personal history of nicotine dependence
CPT/HCPCS: 81003; 87086; 87088; 99213; G0463

== ENCOUNTER 2023-03-25 18:13 | Emergency (ER) | payer BC, SELFPAY ==
[2023-03-25 18:20] VITALS: BP 118/79; PULSE 69; RESP 16; TEMP 36.5; O2SAT 100
--- NOTE | 2023-03-25 19:07 | ED.GENADULT ---
HPI - General Adult General Chief complaint: Urogenital-Female Stated complaint: Urine Check Source: patient Mode of arrival: ambulatory Limitations: no limitations History of Present Illness HPI narrative: Patient presents for evaluation of urinary symptoms. She has a history of interstitial cystitis with chronic urinary frequency.? She has been seen here frequently in the past for urinary symptoms.? She has been undergoing some testing with her GI provider and thinks the testing has irritated her bladder. She reports unchanged nature of her chronic urinary frequency.? Denies any other urinary symptoms.? No fever, chills, nausea, vomiting, abdominal pain, vaginal bleeding or discharge. She has an appt with her urologist two days from now and her GI provider three days from now. Related Data Home Medications Medication Instructions Recorded Confirmed No Home Medications 03/20/23 03/22/23 Allergies Allergy/AdvReac Type Severity Reaction Status Date / Time latex Allergy Mild RASH-CONDOMS Verified 03/22/23 13:53 AND GLOVES clindamycin Allergy Hives Verified 03/22/23 13:53 gadobenic acid Allergy Hives Verified 03/22/23 13:53 [From contrast - MRI] iohexol Allergy Hives Verified 03/22/23 13:53 [From contrast - CT, X-RAY] lubiprostone [From Amitiza] Allergy Itching Verified 03/22/23 13:53 propoxyphene Allergy Other Verified 03/22/23 13:53 [From Darvocet-N 100] acetaminophen AdvReac Other Verified 03/22/23 13:53 amoxicillin AdvReac Chest Pain Verified 03/22/23 13:53 codeine AdvReac Nausea and Verified 03/22/23 13:53 Vomiting hydrocodone AdvReac Other Verified 03/22/23 13:53 ketorolac [From Toradol] AdvReac Palpitation Verified 03/22/23 13:53 s levofloxacin [From Levaquin] AdvReac Chest Pain Verified 03/22/23 13:53 nitrofurantoin AdvReac Chest Pain Verified 03/22/23 13:53 [From Macrobid] paroxetine [From Paxil] AdvReac Other Verified 03/22/23 13:53 Penicillins AdvReac Chest Pain Verified 03/22/23 13:53 Sulfa (Sulfonamide AdvReac Chest Pain Verified 03/22/23 13:53 Antibiotics) vancomycin AdvReac Chest Pain Verified 03/22/23 13:53 Review of Systems Review of Systems: CONSTITUTIONAL: Denies fever, chills, or sweats. EYES: Denies visual changes, redness, or discharge. ENT: Denies rhinorrhea, congestion, sore throat, or otalgia. CARDIOVASCULAR: Denies chest pain, palpitations, or edema. RESPIRATORY: Denies cough or dyspnea. GASTROINTESTINAL: Denies abdominal pain, nausea, vomiting, or diarrhea. GENITOURINARY:Reports urinary frequency. Denies any other urinary symptoms. SKIN: Denies rash or itching. MUSCULOSKELETAL: Denies back pain, joint pain, or myalgia. NEUROLOGIC: Denies headache, numbness, dizziness, or weakness. PSYCHIATRIC: Denies anxiety or depression. [facility] Past Medical History Medical History Anxiety Bronchitis Constipation Depression Family history of malignant neoplasm of colon in father Genitourinary disorder Interstitial cystitis, urethral dilation GERD (gastroesophageal reflux disease) Interstitial cystitis Irritable bowel syndrome Irritable bowel syndrome with constipation Mitral valve prolapse Right hand fracture Urinary tract infection Vaginal delivery Surgical History Surgical History H/O hemorrhoidectomy H/O sinus surgery H/O tubal ligation H/O umbilical hernia repair History of facial surgery Nasal reconstruction History of hysterectomy History of orthopedic surgery Right knee, trigger release finger left hand History of tonsillectomy History of urinary tract surgery Family History Family History Grandparent Diabetes mellitus, Onset Age: 200 Cerebrovascular accident, Onset Age: 200 Father Family history of elevated blood lipid
== END 2023-03-25 19:10 | disposition home or self-care (01) ==
PROVIDERS: Emergency Provider Nurse Practitioner
DX: N30.10 Interstitial cystitis (chronic) without hematuria (principal); Z87.891 Personal history of nicotine dependence; K21.9 Gastro-esophageal reflux disease without esophagitis; I34.1 Nonrheumatic mitral (valve) prolapse
CPT/HCPCS: 81003; 99212; G0463

== ENCOUNTER 2023-03-31 12:03 | Emergency (ER) | payer BC, SELFPAY ==
[2023-03-31 12:08] VITALS: BP 127/80; PULSE 68; RESP 18; TEMP 36.7; O2SAT 98
--- NOTE | 2023-03-31 12:22 | ED.GENADULT ---
HPI - General Adult General Chief complaint: Upper Respiratory Infection Stated complaint: Urine Check Source: patient and RN notes reviewed History of Present Illness HPI narrative: 48 yo F presents to urgent care with requests to have her urine checked. Pt states she was placed on doxycycline on Friday for a gut infection. Pt states she is concerned b/c the doxy dose is only 100 mg and her usual Abx dose is normally upwards of 500 mg and she's afraid the 100 mg isn't strong enough. Pt states she has been having frequent urination lately. Denies any fevers, chills, or vomiting. Related Data Home Medications Medication Instructions Recorded Confirmed doxycycline monohydrate 100 mg mg 03/31/23 tablet Allergies Allergy/AdvReac Type Severity Reaction Status Date / Time latex Allergy Mild RASH-CONDOMS Verified 03/22/23 13:53 AND GLOVES clindamycin Allergy Hives Verified 03/22/23 13:53 gadobenic acid Allergy Hives Verified 03/22/23 13:53 [From contrast - MRI] iohexol Allergy Hives Verified 03/22/23 13:53 [From contrast - CT, X-RAY] lubiprostone [From Amitiza] Allergy Itching Verified 03/22/23 13:53 propoxyphene Allergy Other Verified 03/22/23 13:53 [From Darvocet-N 100] acetaminophen AdvReac Other Verified 03/22/23 13:53 amoxicillin AdvReac Chest Pain Verified 03/22/23 13:53 codeine AdvReac Nausea and Verified 03/22/23 13:53 Vomiting hydrocodone AdvReac Other Verified 03/22/23 13:53 ketorolac [From Toradol] AdvReac Palpitation Verified 03/22/23 13:53 s levofloxacin [From Levaquin] AdvReac Chest Pain Verified 03/22/23 13:53 nitrofurantoin AdvReac Chest Pain Verified 03/22/23 13:53 [From Macrobid] paroxetine [From Paxil] AdvReac Other Verified 03/22/23 13:53 Penicillins AdvReac Chest Pain Verified 03/22/23 13:53 Sulfa (Sulfonamide AdvReac Chest Pain Verified 03/22/23 13:53 Antibiotics) vancomycin AdvReac Chest Pain Verified 03/22/23 13:53 Review of Systems Review of Systems: Pertinent positives and pertinent negatives per HPI. PMFSH Past Medical History Medical History Anxiety Bronchitis Constipation Depression Family history of malignant neoplasm of colon in father Genitourinary disorder Interstitial cystitis, urethral dilation GERD (gastroesophageal reflux disease) Interstitial cystitis Irritable bowel syndrome Irritable bowel syndrome with constipation Mitral valve prolapse Right hand fracture Urinary tract infection Vaginal delivery Surgical History Surgical History H/O hemorrhoidectomy H/O sinus surgery H/O tubal ligation H/O umbilical hernia repair History of facial surgery Nasal reconstruction History of hysterectomy History of orthopedic surgery Right knee, trigger release finger left hand History of tonsillectomy History of urinary tract surgery Family History Family History Grandparent Diabetes mellitus, Onset Age: 200 Cerebrovascular accident, Onset Age: 200 Father Family history of elevated blood lipids Carcinoma of colon Family history of coronary artery disease, Onset Age: 201 Patient's father is Grandparent Family history of malignant neoplasm Diabetes mellitus Cerebrovascular accident Hypertension Family history of cardiovascular disease Father Family history of congestive heart failure Patient's father is Hypertension Carcinoma of colon Family history of emphysema Family history of cardiovascular disease Sibling Hypertension Grandparent Diabetes mellitus Social History Social History Social History: no caffeine use Smoking packs per day: 1.5 Smoking cigarettes per day: 30.0 Years smoked: 13 Smoking
== END 2023-03-31 12:25 | disposition home or self-care (01) ==
LOC: EXPBETH 12:05
PROVIDERS: Emergency Provider Nurse Practitioner Family
DX: F45.21 Hypochondriasis (principal); N30.90 Cystitis, unspecified without hematuria; Z87.891 Personal history of nicotine dependence; K21.9 Gastro-esophageal reflux disease without esophagitis; I34.1 Nonrheumatic mitral (valve) prolapse
CPT/HCPCS: 99211; G0463

== ENCOUNTER 2023-04-08 11:20 | Emergency (ER) | payer BC, SELFPAY ==
--- NOTE | 2023-04-08 11:22 | ED.FEMALEGU ---
HPI - Female Genitourinary General Chief complaint: Urogenital-Female Stated complaint: uti Source: patient, RN notes reviewed and old records reviewed Mode of arrival: ambulatory Limitations: no limitations History of Present Illness HPI Narrative: 48-year-old female presents to the [facility] with concerns for UTI. Currently on doxycycline on day 13, Prescribed by GI, Patient states she stopped taking it because it upsets her stomach. Wants to make sure she does not have a UTI she is scheduled for an upper and lower GI on patient reports a history of cystitis Related Data Home Medications Medication Instructions Recorded Confirmed doxycycline monohydrate 100 mg 100 mg PO DAILY 03/31/23 04/08/23 tablet Allergies Allergy/AdvReac Type Severity Reaction Status Date / Time latex Allergy Mild RASH-CONDOMS Verified 04/08/23 11:22 AND GLOVES clindamycin Allergy Hives Verified 04/08/23 11:22 gadobenic acid Allergy Hives Verified 04/08/23 11:22 [From contrast - MRI] iohexol Allergy Hives Verified 04/08/23 11:22 [From contrast - CT, X-RAY] lubiprostone [From Amitiza] Allergy Itching Verified 04/08/23 11:22 propoxyphene Allergy Other Verified 04/08/23 11:22 [From Darvocet-N 100] acetaminophen AdvReac Other Verified 04/08/23 11:22 amoxicillin AdvReac Chest Pain Verified 04/08/23 11:22 codeine AdvReac Nausea and Verified 04/08/23 11:22 Vomiting hydrocodone AdvReac Other Verified 04/08/23 11:22 ketorolac [From Toradol] AdvReac Palpitation Verified 04/08/23 11:22 s levofloxacin [From Levaquin] AdvReac Chest Pain Verified 04/08/23 11:22 nitrofurantoin AdvReac Chest Pain Verified 04/08/23 11:22 [From Macrobid] paroxetine [From Paxil] AdvReac Other Verified 04/08/23 11:22 Penicillins AdvReac Chest Pain Verified 04/08/23 11:22 Sulfa (Sulfonamide AdvReac Chest Pain Verified 04/08/23 11:22 Antibiotics) vancomycin AdvReac Chest Pain Verified 04/08/23 11:22 Review of Systems Review of Systems: All systems reviewed & are unremarkable except as noted in HPI and below Constitutional: Constitutional: Reports no additional constitutional complaints Eyes: Eyes: Reports no additional eye complaints ENT: Reports system reviewed and no additional complaints, except as documented Cardiovascular: Cardiovascular: Reports no additional cardiovascular complaints, Denies chest pain and Denies dyspnea Respiratory: Respiratory: Reports no additional respiratory complaints, Denies chest congestion, Denies cough and Denies dyspnea Gastrointestinal: Gastrointestinal: Reports no additional gastrointestinal complaints, Denies abdominal pain, Denies nausea and Denies vomiting Genitourinary: Genitourinary: Reports as per HPI Musculoskeletal: Musculoskeletal: Reports no additional musculoskeletal complaints Integumentary/Breasts: Skin/Breast: Reports system reviewed and no additional complaints, except as docu Neurologic: Reports system reviewed and no additional complaints, except as documented Psychiatric: Psychiatric: Reports no additional psychiatric complaints Allergic/Immunologic: Allergic/Immunologic: Reports no additional allergic/immunologic complaints [facility] Past Medical History Medical History Anxiety Bronchitis Constipation Depression Family history of malignant neoplasm of colon in father Genitourinary disorder Interstitial cystitis, urethral dilation GERD (gastroesophageal reflux disease) Interstitial cystitis Irritable bowel syndrome Irritable bowel syndrome with constipation Mitral valve prolapse Right hand fracture Urinary tract infection Vaginal delivery Surgical History Surgical History H/O hemorrhoidectomy H/O sinus surgery H/O tubal ligation H/O umbilical hernia repair History of facial surgery Nasal reconstruction History of hysterectom
[2023-04-08 11:26] VITALS: BP 123/81; PULSE 86; RESP 16; TEMP 36.8; O2SAT 100
== END 2023-04-08 11:44 | disposition home or self-care (01) ==
PROVIDERS: Emergency Provider Nurse Practitioner
DX: R35.0 Frequency of micturition (principal); Z87.891 Personal history of nicotine dependence; K21.9 Gastro-esophageal reflux disease without esophagitis; I34.1 Nonrheumatic mitral (valve) prolapse
CPT/HCPCS: 81003; 99212; G0463

== ENCOUNTER 2023-04-16 11:41 | Emergency (ER) | payer BC, SELFPAY ==
[2023-04-16 11:50] VITALS: BP 121/92; PULSE 86; RESP 18; TEMP 37.2; O2SAT 100
--- NOTE | 2023-04-16 12:00 | ED.FEMALEGU ---
HPI - Female Genitourinary General Chief complaint: Urogenital-Female Stated complaint: urine check Time Seen by Provider: 04/16/23 12:04 Source: patient and RN notes reviewed Mode of arrival: ambulatory Limitations: no limitations History of Present Illness HPI Narrative: 48-year-old female presents for concern with burning with urination and a urine check. She reports she just finished doxycycline and she ?wants to make sure it worked?. She denies fever, aches, chills, sweats, abdominal pain or back pain MD elicited complaint: UTI Related Data Allergies Allergy/AdvReac Type Severity Reaction Status Date / Time latex Allergy Mild RASH-CONDOMS Verified 04/08/23 11:22 AND GLOVES clindamycin Allergy Hives Verified 04/08/23 11:22 gadobenic acid Allergy Hives Verified 04/08/23 11:22 [From contrast - MRI] iohexol Allergy Hives Verified 04/08/23 11:22 [From contrast - CT, X-RAY] lubiprostone [From Amitiza] Allergy Itching Verified 04/08/23 11:22 propoxyphene Allergy Other Verified 04/08/23 11:22 [From Darvocet-N 100] acetaminophen AdvReac Other Verified 04/08/23 11:22 amoxicillin AdvReac Chest Pain Verified 04/08/23 11:22 codeine AdvReac Nausea and Verified 04/08/23 11:22 Vomiting hydrocodone AdvReac Other Verified 04/08/23 11:22 ketorolac [From Toradol] AdvReac Palpitation Verified 04/08/23 11:22 s levofloxacin [From Levaquin] AdvReac Chest Pain Verified 04/08/23 11:22 nitrofurantoin AdvReac Chest Pain Verified 04/08/23 11:22 [From Macrobid] paroxetine [From Paxil] AdvReac Other Verified 04/08/23 11:22 Penicillins AdvReac Chest Pain Verified 04/08/23 11:22 Sulfa (Sulfonamide AdvReac Chest Pain Verified 04/08/23 11:22 Antibiotics) vancomycin AdvReac Chest Pain Verified 04/08/23 11:22 Review of Systems Review of Systems: CONSTITUTIONAL: Denies malaise, chills, sweats, or fever. CARDIOVASCULAR: Denies chest pain, palpitations, or edema. RESPIRATORY: Denies cough or dyspnea. GASTROINTESTINAL: Denies abdominal pain, nausea, vomiting, diarrhea GENITOURINARY: Reports dysuria, frequency. Denies urgency, suprapubic pressure. Denies flank pain or hematuria. SKIN: Denies rash or itching. MUSCULOSKELETAL: Denies back pain or myalgia. All systems reviewed & are unremarkable except as noted in HPI and below PMFSH Past Medical History Medical History Anxiety Bronchitis Constipation Depression Family history of malignant neoplasm of colon in father Genitourinary disorder Interstitial cystitis, urethral dilation GERD (gastroesophageal reflux disease) Interstitial cystitis Irritable bowel syndrome Irritable bowel syndrome with constipation Mitral valve prolapse Right hand fracture Urinary tract infection Vaginal delivery Surgical History Surgical History H/O hemorrhoidectomy H/O sinus surgery H/O tubal ligation H/O umbilical hernia repair History of facial surgery Nasal reconstruction History of hysterectomy History of orthopedic surgery Right knee, trigger release finger left hand History of tonsillectomy History of urinary tract surgery Family History Family History Grandparent Diabetes mellitus, Onset Age: 200 Cerebrovascular accident, Onset Age: 200 Father Family history of elevated blood lipids Carcinoma of colon Family history of coronary artery disease, Onset Age: 201 Patient's father is Grandparent Family history of malignant neoplasm Diabetes mellitus Cerebrovascular accident Hypertension Family history of cardiovascular disease Father Family history of congestive heart failure Patient's father is Hypertension Carcinoma of colon Family history of emphysema Family history of cardiovascular disease Sibling Hypertension Grandpare
== END 2023-04-16 12:15 | disposition home or self-care (01) ==
PROVIDERS: Emergency Provider Nurse Practitioner
DX: N30.20 Other chronic cystitis without hematuria (principal); Z87.891 Personal history of nicotine dependence; K21.9 Gastro-esophageal reflux disease without esophagitis; I34.1 Nonrheumatic mitral (valve) prolapse; F41.9 Anxiety disorder, unspecified; F32.A Depression, unspecified
CPT/HCPCS: 81003; 99212; G0463

== ENCOUNTER 2023-04-21 19:02 | Emergency (ER) | payer BC, SELFPAY ==
[2023-04-21 19:06] VITALS: BP 136/78; PULSE 71; RESP 16; TEMP 36.6; O2SAT 100
--- NOTE | 2023-04-21 19:33 | ED.FEMALEGU ---
HPI - Female Genitourinary General Chief complaint: Urogenital-Female Stated complaint: Bladder Time Seen by Provider: 04/21/23 19:04 Source: patient and RN notes reviewed History of Present Illness HPI Narrative: Patient is a 48-year-old female who presents to the Urgent Care with complaints of dysuria. Denies any urinary frequency, abdominal pain, nausea, vomiting or fever. Patient's last several urinalysis have been negative for infection. No other acute complaints. No acute distress noted. Patient aware of the plan of care. Some parts of this dictation were generated by voice recognition software and may contain typographical and/or grammatical inaccuracies. Related Data Allergies Allergy/AdvReac Type Severity Reaction Status Date / Time latex Allergy Mild RASH-CONDOMS Verified 04/08/23 11:22 AND GLOVES clindamycin Allergy Hives Verified 04/08/23 11:22 gadobenic acid Allergy Hives Verified 04/08/23 11:22 [From contrast - MRI] iohexol Allergy Hives Verified 04/08/23 11:22 [From contrast - CT, X-RAY] lubiprostone [From Amitiza] Allergy Itching Verified 04/08/23 11:22 propoxyphene Allergy Other Verified 04/08/23 11:22 [From Darvocet-N 100] acetaminophen AdvReac Other Verified 04/08/23 11:22 amoxicillin AdvReac Chest Pain Verified 04/08/23 11:22 codeine AdvReac Nausea and Verified 04/08/23 11:22 Vomiting hydrocodone AdvReac Other Verified 04/08/23 11:22 ketorolac [From Toradol] AdvReac Palpitation Verified 04/08/23 11:22 s levofloxacin [From Levaquin] AdvReac Chest Pain Verified 04/08/23 11:22 nitrofurantoin AdvReac Chest Pain Verified 04/08/23 11:22 [From Macrobid] paroxetine [From Paxil] AdvReac Other Verified 04/08/23 11:22 Penicillins AdvReac Chest Pain Verified 04/08/23 11:22 Sulfa (Sulfonamide AdvReac Chest Pain Verified 04/08/23 11:22 Antibiotics) vancomycin AdvReac Chest Pain Verified 04/08/23 11:22 Review of Systems Review of Systems: CONSTITUTIONAL: Denies fever, chills, or sweats. EYES: Denies visual changes, redness, or discharge. ENT: Denies rhinorrhea, congestion, sore throat, or otalgia. CARDIOVASCULAR: Denies chest pain, palpitations, or edema. RESPIRATORY: Denies cough or dyspnea. GASTROINTESTINAL: Denies abdominal pain, nausea, vomiting, or diarrhea. GENITOURINARY: Reports dysuria SKIN: Denies rash or itching. MUSCULOSKELETAL: Denies back pain, joint pain, or myalgia. NEUROLOGIC: Denies headache, numbness, or weakness. All other systems reviewed are negative, except as documented in HPI. [facility] Past Medical History Medical History Anxiety Bronchitis Constipation Depression Family history of malignant neoplasm of colon in father Genitourinary disorder Interstitial cystitis, urethral dilation GERD (gastroesophageal reflux disease) Interstitial cystitis Irritable bowel syndrome Irritable bowel syndrome with constipation Mitral valve prolapse Right hand fracture Urinary tract infection Vaginal delivery Surgical History Surgical History H/O hemorrhoidectomy H/O sinus surgery H/O tubal ligation H/O umbilical hernia repair History of facial surgery Nasal reconstruction History of hysterectomy History of orthopedic surgery Right knee, trigger release finger left hand History of tonsillectomy History of urinary tract surgery Family History Family History Grandparent Diabetes mellitus, Onset Age: 200 Cerebrovascular accident, Onset Age: 200 Father Family history of elevated blood lipids Carcinoma of colon Family history of coronary artery disease, Onset Age: 201 Patient's father is Grandparent Family history of malignant neoplasm Diabetes mellitus Cerebrovascular accident Hypertension Family history of cardiovascular disease F
== END 2023-04-21 19:38 | disposition home or self-care (01) ==
PROVIDERS: Emergency Provider Nurse Practitioner Family
DX: N30.90 Cystitis, unspecified without hematuria (principal); K21.9 Gastro-esophageal reflux disease without esophagitis; I34.1 Nonrheumatic mitral (valve) prolapse; Z87.891 Personal history of nicotine dependence
CPT/HCPCS: 81003; 99212; G0463

== ENCOUNTER 2023-04-25 11:14 | Emergency (ER) | payer BC, SELFPAY ==
[2023-04-25 11:24] VITALS: BP 126/84; PULSE 65; RESP 16; TEMP 36.3; O2SAT 100
[2023-04-25 11:25] VITALS: BP 126/84; PULSE 65; RESP 16; TEMP 36.3; O2SAT 100
--- NOTE | 2023-04-25 11:34 | ED.FEMALEGU ---
HPI - Female Genitourinary General Chief complaint: Urogenital-Female Stated complaint: BURNING URINATION Time Seen by Provider: 04/25/23 11:34 Source: patient, RN notes reviewed and old records reviewed Mode of arrival: ambulatory Limitations: no limitations History of Present Illness HPI Narrative: 48 year old female who [facility] with complaints of burning with urination for the past few days at intervals. Patient reports that she had recent EGD and Colonoscopy done on April 15, patient reports that she has to have repeat colonoscopy on the 12 of May since she wasn't cleaned out good enough. Patient reports that she has to have 2 day prep for test. Patient reports that she has been drinking fluids well with specific gravity much improved today on urine dip. Patient denies any vaginal discharge or any concern for STD's, denies any fevers, chills or sweats, no nausea or vomiting.Patient has history of IBS which varies from constipation to diarrhea, takes PEG solution if constipation occurs.Patient report that she was told she has some gastritis but wasn't placed on any medication. Patient reports that she has lost 40 lbs since she had that hernia surgery where they put mesh in her abdomen. MD elicited complaint: dysuria Pertinent past history: interstitial cystits and other Location of symptoms: perineum Severity scale (1-10): 2 (2) Quality of pain: burning Related Data Home Medications Medication Instructions Recorded Confirmed No Home Medications 04/25/23 04/25/23 Allergies Allergy/AdvReac Type Severity Reaction Status Date / Time latex Allergy Mild RASH-CONDOMS Verified 04/25/23 11:18 AND GLOVES clindamycin Allergy Hives Verified 04/25/23 11:18 gadobenic acid Allergy Hives Verified 04/25/23 11:18 [From contrast - MRI] iohexol Allergy Hives Verified 04/25/23 11:18 [From contrast - CT, X-RAY] lubiprostone [From Amitiza] Allergy Itching Verified 04/25/23 11:18 propoxyphene Allergy Other Verified 04/25/23 11:18 [From Darvocet-N 100] acetaminophen AdvReac Other Verified 04/25/23 11:18 amoxicillin AdvReac Chest Pain Verified 04/25/23 11:18 codeine AdvReac Nausea and Verified 04/25/23 11:18 Vomiting hydrocodone AdvReac Other Verified 04/25/23 11:18 ketorolac [From Toradol] AdvReac Palpitation Verified 04/25/23 11:18 s levofloxacin [From Levaquin] AdvReac Chest Pain Verified 04/25/23 11:18 nitrofurantoin AdvReac Chest Pain Verified 04/25/23 11:18 [From Macrobid] paroxetine [From Paxil] AdvReac Other Verified 04/25/23 11:18 Penicillins AdvReac Chest Pain Verified 04/25/23 11:18 Sulfa (Sulfonamide AdvReac Chest Pain Verified 04/25/23 11:18 Antibiotics) vancomycin AdvReac Chest Pain Verified 04/25/23 11:18 Review of Systems Review of Systems: CONSTITUTIONAL: Denies fever, chills, or sweats. CARDIOVASCULAR: Denies chest pain, palpitations, or edema. RESPIRATORY: Denies cough or dyspnea. GASTROINTESTINAL: Denies abdominal pain, nausea, vomiting, or diarrhea. GENITOURINARY: Reports dysuria, frequency, urgency. Denies flank pain or hematuria. reports that she had recent prep fo colonoscopy at the end of March for a colonoscopy SKIN: Denies rash or itching. MUSCULOSKELETAL: Denies back pain or myalgia. Denies CVA tenderness NEUROLOGIC: Denies headache All systems reviewed & are unremarkable except as noted in HPI and below PMFSH Past Medical History Medical History Anxiety Bronchitis Constipation Depression Family history of malignant neoplasm of colon in father Genitourinary disorder Interstitial cystitis, urethral dilation GERD (gastroesophageal reflux disease) Interstitial cystitis Irritable bowel syndrome Irritable bowel syndrome with constipation Mitral valve prolapse Right hand fracture Urinary tract infection Vaginal delivery Surgical History Surgical History (Reviewed 04/25/23 @ 19:21 by
== END 2023-04-25 11:48 | disposition home or self-care (01) ==
PROVIDERS: Emergency Provider Registered Nurse; PCP Nurse Practitioner Family
DX: R30.0 Dysuria (principal); Z87.891 Personal history of nicotine dependence; K21.9 Gastro-esophageal reflux disease without esophagitis; I34.1 Nonrheumatic mitral (valve) prolapse
CPT/HCPCS: 81003; 99212; G0463

== ENCOUNTER 2023-04-29 15:28 | Emergency (ER) | payer BC, SELFPAY ==
--- NOTE | 2023-04-29 15:33 | ED.FEMALEGU ---
HPI - Female Genitourinary General Chief complaint: Urogenital-Female Stated complaint: bladder issues Time Seen by Provider: 04/29/23 15:33 Source: patient and RN notes reviewed History of Present Illness HPI Narrative: Patient is a 48-year-old female presents to urgent care with complaints of recurrent interstitial cystitis with suprapubic pressure and urinary frequency. Patient states that nothing is out of the ordinary except she was recently diagnosed with kidney stones on the right. Patient is due to have a colonoscopy this week and wants to make sure she does not have any infection prior to her procedure. No other acute complaints. No acute distress noted. Patient aware of plan of care. Some parts of this dictation were generated by voice recognition software and may contain typographical and/or grammatical inaccuracies. Related Data Home Medications Medication Instructions Recorded Confirmed No Home Medications 04/25/23 04/29/23 Allergies Allergy/AdvReac Type Severity Reaction Status Date / Time latex Allergy Mild RASH-CONDOMS Verified 04/29/23 15:31 AND GLOVES clindamycin Allergy Hives Verified 04/29/23 15:31 gadobenic acid Allergy Hives Verified 04/29/23 15:31 [From contrast - MRI] iohexol Allergy Hives Verified 04/29/23 15:31 [From contrast - CT, X-RAY] lubiprostone [From Amitiza] Allergy Itching Verified 04/29/23 15:31 propoxyphene Allergy Other Verified 04/29/23 15:31 [From Darvocet-N 100] acetaminophen AdvReac Other Verified 04/29/23 15:31 amoxicillin AdvReac Chest Pain Verified 04/29/23 15:31 codeine AdvReac Nausea and Verified 04/29/23 15:31 Vomiting hydrocodone AdvReac Other Verified 04/29/23 15:31 ketorolac [From Toradol] AdvReac Palpitation Verified 04/29/23 15:31 s levofloxacin [From Levaquin] AdvReac Chest Pain Verified 04/29/23 15:31 nitrofurantoin AdvReac Chest Pain Verified 04/29/23 15:31 [From Macrobid] paroxetine [From Paxil] AdvReac Other Verified 04/29/23 15:31 Penicillins AdvReac Chest Pain Verified 04/29/23 15:31 Sulfa (Sulfonamide AdvReac Chest Pain Verified 04/29/23 15:31 Antibiotics) vancomycin AdvReac Chest Pain Verified 04/29/23 15:31 Review of Systems Review of Systems: CONSTITUTIONAL: Denies fever, chills, or sweats. EYES: Denies visual changes, redness, or discharge. ENT: Denies rhinorrhea, congestion, sore throat, or otalgia. CARDIOVASCULAR: Denies chest pain, palpitations, or edema. RESPIRATORY: Denies cough or dyspnea. GASTROINTESTINAL: Denies abdominal pain, nausea, vomiting, or diarrhea. GENITOURINARY: Denies dysuria or hematuria. Frequency and suprapubic tenderness SKIN: Denies rash or itching. MUSCULOSKELETAL: Denies back pain, joint pain, or myalgia. NEUROLOGIC: Denies headache, numbness, or weakness. All other systems reviewed are negative, except as documented in HPI. [facility] Past Medical History Medical History Anxiety Bronchitis Constipation Depression Family history of malignant neoplasm of colon in father Genitourinary disorder Interstitial cystitis, urethral dilation GERD (gastroesophageal reflux disease) Interstitial cystitis Irritable bowel syndrome Irritable bowel syndrome with constipation Mitral valve prolapse Right hand fracture Urinary tract infection Vaginal delivery Surgical History Surgical History H/O hemorrhoidectomy H/O sinus surgery H/O tubal ligation H/O umbilical hernia repair History of facial surgery Nasal reconstruction History of hysterectomy History of orthopedic surgery Right knee, trigger release finger left hand History of tonsillectomy History of urinary tract surgery Family History Family History Grandparent Diabetes mellitus, Onset Age: 200 Cerebrovascular accident, Onset Age: 200
[2023-04-29 15:36] VITALS: BP 130/85; PULSE 60; RESP 20; TEMP 36.7; O2SAT 100
== END 2023-04-29 16:05 | disposition home or self-care (01) ==
PROVIDERS: Emergency Provider Nurse Practitioner Family
DX: N30.90 Cystitis, unspecified without hematuria (principal); Z87.891 Personal history of nicotine dependence; K21.9 Gastro-esophageal reflux disease without esophagitis; I34.1 Nonrheumatic mitral (valve) prolapse
CPT/HCPCS: 81003; 99212; G0463

== ENCOUNTER 2023-05-03 16:14 | Emergency (ER) | payer BC, SELFPAY ==
--- NOTE | 2023-05-03 16:16 | ED.FEMALEGU ---
HPI - Female Genitourinary General Chief complaint: Urogenital-Female Stated complaint: uti Time Seen by Provider: 05/03/23 16:16 Source: patient and RN notes reviewed History of Present Illness HPI Narrative: Patient is a 48-year-old female presents to urgent care requesting have her urine checked. The patient was here last week prior to her colonoscopy to be sure she was ?infection free?. Patient states that she had a repeat colonoscopy with 2 days of prep, on . Patient states that she is wanting to recheck her urine to be clear for infection. Patient denies any symptoms at this time. No other acute complaints. No acute distress noted. Patient aware of plan of care. Some parts of this dictation were generated by voice recognition software and may contain typographical and/or grammatical inaccuracies. Related Data Home Medications Medication Instructions Recorded Confirmed No Home Medications 04/25/23 05/03/23 Allergies Allergy/AdvReac Type Severity Reaction Status Date / Time latex Allergy Mild RASH-CONDOMS Verified 05/03/23 16:23 AND GLOVES clindamycin Allergy Hives Verified 05/03/23 16:23 gadobenic acid Allergy Hives Verified 05/03/23 16:23 [From contrast - MRI] iohexol Allergy Hives Verified 05/03/23 16:23 [From contrast - CT, X-RAY] lubiprostone [From Amitiza] Allergy Itching Verified 05/03/23 16:23 propoxyphene Allergy Other Verified 05/03/23 16:23 [From Darvocet-N 100] acetaminophen AdvReac Other Verified 05/03/23 16:23 amoxicillin AdvReac Chest Pain Verified 05/03/23 16:23 codeine AdvReac Nausea and Verified 05/03/23 16:23 Vomiting hydrocodone AdvReac Other Verified 05/03/23 16:23 ketorolac [From Toradol] AdvReac Palpitation Verified 05/03/23 16:23 s levofloxacin [From Levaquin] AdvReac Chest Pain Verified 05/03/23 16:23 nitrofurantoin AdvReac Chest Pain Verified 05/03/23 16:23 [From Macrobid] paroxetine [From Paxil] AdvReac Other Verified 05/03/23 16:23 Penicillins AdvReac Chest Pain Verified 05/03/23 16:23 Sulfa (Sulfonamide AdvReac Chest Pain Verified 05/03/23 16:23 Antibiotics) vancomycin AdvReac Chest Pain Verified 05/03/23 16:23 Review of Systems Review of Systems: CONSTITUTIONAL: Denies fever, chills, or sweats. EYES: Denies visual changes, redness, or discharge. ENT: Denies rhinorrhea, congestion, sore throat, or otalgia. CARDIOVASCULAR: Denies chest pain, palpitations, or edema. RESPIRATORY: Denies cough or dyspnea. GASTROINTESTINAL: Denies abdominal pain, nausea, vomiting, or diarrhea. GENITOURINARY: Denies dysuria or hematuria. Chronic interstitial cystitis SKIN: Denies rash or itching. MUSCULOSKELETAL: Denies back pain, joint pain, or myalgia. NEUROLOGIC: Denies headache, numbness, or weakness. All other systems reviewed are negative, except as documented in HPI. [facility] Past Medical History Medical History Anxiety Bronchitis Constipation Depression Family history of malignant neoplasm of colon in father Genitourinary disorder Interstitial cystitis, urethral dilation GERD (gastroesophageal reflux disease) Interstitial cystitis Irritable bowel syndrome Irritable bowel syndrome with constipation Mitral valve prolapse Right hand fracture Urinary tract infection Vaginal delivery Surgical History Surgical History H/O hemorrhoidectomy H/O sinus surgery H/O tubal ligation H/O umbilical hernia repair History of facial surgery Nasal reconstruction History of hysterectomy History of orthopedic surgery Right knee, trigger release finger left hand History of tonsillectomy History of urinary tract surgery Family History Family History Grandparent Diabetes mellitus, Onset Age: 200 Cerebrovascular accident, Onset Age: 200 Father Fa
[2023-05-03 16:18] VITALS: BP 117/76; PULSE 71; RESP 20; TEMP 36.9; O2SAT 100
== END 2023-05-03 16:37 | disposition home or self-care (01) ==
PROVIDERS: Emergency Provider Nurse Practitioner Family
DX: N30.90 Cystitis, unspecified without hematuria (principal); Z87.891 Personal history of nicotine dependence; K21.9 Gastro-esophageal reflux disease without esophagitis; I34.1 Nonrheumatic mitral (valve) prolapse
CPT/HCPCS: 81003; 99212; G0463

== ENCOUNTER 2023-05-08 17:33 | Emergency (ER) | payer BC, SELFPAY ==
[2023-05-08 17:38] VITALS: BP 115/81; PULSE 84; RESP 20; TEMP 37; O2SAT 100
--- NOTE | 2023-05-08 18:03 | ED.ABDPAIN ---
HPI - Abdominal Pain General Chief Complaint: Urogenital-Female Stated Complaint: Burning during urination History of Present Illness HPI narrative: Pt is a 48 y/o female, PMhx of IC, returns to with report she has noticed a slight burn when she urinates the past two days. She has visited this urgent care 30 times in the past 6 months for similar complaints. She has no fevers, flank pain, NV or vaginal discharge. She denies any other associated symptoms. She has an established urologist but denies contacting her provider regarding her recurrent symptoms. Related Data Home Medications Medication Instructions Recorded Confirmed No Home Medications 04/25/23 05/08/23 Allergies Allergy/AdvReac Type Severity Reaction Status Date / Time latex Allergy Mild RASH-CONDOMS Verified 05/08/23 17:43 AND GLOVES clindamycin Allergy Hives Verified 05/08/23 17:43 gadobenic acid Allergy Hives Verified 05/08/23 17:43 [From contrast - MRI] iohexol Allergy Hives Verified 05/08/23 17:43 [From contrast - CT, X-RAY] lubiprostone [From Amitiza] Allergy Itching Verified 05/08/23 17:43 propoxyphene Allergy Other Verified 05/08/23 17:43 [From Darvocet-N 100] acetaminophen AdvReac Other Verified 05/08/23 17:43 amoxicillin AdvReac Chest Pain Verified 05/08/23 17:43 codeine AdvReac Nausea and Verified 05/08/23 17:43 Vomiting hydrocodone AdvReac Other Verified 05/08/23 17:43 ketorolac [From Toradol] AdvReac Palpitation Verified 05/08/23 17:43 s levofloxacin [From Levaquin] AdvReac Chest Pain Verified 05/08/23 17:43 nitrofurantoin AdvReac Chest Pain Verified 05/08/23 17:43 [From Macrobid] paroxetine [From Paxil] AdvReac Other Verified 05/08/23 17:43 Penicillins AdvReac Chest Pain Verified 05/08/23 17:43 Sulfa (Sulfonamide AdvReac Chest Pain Verified 05/08/23 17:43 Antibiotics) vancomycin AdvReac Chest Pain Verified 05/08/23 17:43 Review of Systems Genitourinary: Comments: refer to [facility] Past Medical History Medical History Anxiety Bronchitis Constipation Depression Family history of malignant neoplasm of colon in father Genitourinary disorder Interstitial cystitis, urethral dilation GERD (gastroesophageal reflux disease) Interstitial cystitis Irritable bowel syndrome Irritable bowel syndrome with constipation Mitral valve prolapse Right hand fracture Urinary tract infection Vaginal delivery Surgical History Surgical History H/O hemorrhoidectomy H/O sinus surgery H/O tubal ligation H/O umbilical hernia repair History of facial surgery Nasal reconstruction History of hysterectomy History of orthopedic surgery Right knee, trigger release finger left hand History of tonsillectomy History of urinary tract surgery Family History Family History Grandparent Diabetes mellitus, Onset Age: 200 Cerebrovascular accident, Onset Age: 200 Father Family history of elevated blood lipids Carcinoma of colon Family history of coronary artery disease, Onset Age: 201 Patient's father is Grandparent Family history of malignant neoplasm Diabetes mellitus Cerebrovascular accident Hypertension Family history of cardiovascular disease Father Family history of congestive heart failure Patient's father is Hypertension Carcinoma of colon Family history of emphysema Family history of cardiovascular disease Sibling Hypertension Grandparent Diabetes mellitus Social History Social History Social History: no caffeine use Smoking packs per day: 1.5 Smoking cigarettes per day: 30.0 Years smoked: 13 Smoking pack-years: 19.50 Smoking status: Former smoker Tobacco type: cigarettes Second hand tobacco
== END 2023-05-08 18:09 | disposition home or self-care (01) ==
PROVIDERS: Emergency Provider Nurse Practitioner Family
DX: R30.0 Dysuria (principal); Z87.891 Personal history of nicotine dependence; K21.9 Gastro-esophageal reflux disease without esophagitis; I34.1 Nonrheumatic mitral (valve) prolapse
CPT/HCPCS: 81003; 99212; G0463

== ENCOUNTER 2023-05-16 18:05 | Emergency (ER) | payer BC, SELFPAY ==
[2023-05-16 18:10] VITALS: BP 123/89; PULSE 75; RESP 16; TEMP 36.6; O2SAT 100
--- NOTE | 2023-05-16 18:19 | ED.FEMALEGU ---
HPI - Female Genitourinary General Chief complaint: Urogenital-Female Stated complaint: Urinray Problem Source: patient and RN notes reviewed History of Present Illness HPI Narrative: [age] year female presents to urgent care with complaints dysuria times approximately 1 week. Patient states she has been having more diarrhea and was concerned this could be affecting her bladder. Denies any abdominal pain, flank pain, back pain, fevers, chills, or vomiting. Related Data Home Medications Medication Instructions Recorded Confirmed No Home Medications 04/25/23 05/16/23 Allergies Allergy/AdvReac Type Severity Reaction Status Date / Time latex Allergy Mild RASH-CONDOMS Verified 05/16/23 18:22 AND GLOVES clindamycin Allergy Hives Verified 05/16/23 18:22 gadobenic acid Allergy Hives Verified 05/16/23 18:22 [From contrast - MRI] iohexol Allergy Hives Verified 05/16/23 18:22 [From contrast - CT, X-RAY] lubiprostone [From Amitiza] Allergy Itching Verified 05/16/23 18:22 propoxyphene Allergy Other Verified 05/16/23 18:22 [From Darvocet-N 100] acetaminophen AdvReac Other Verified 05/16/23 18:22 amoxicillin AdvReac Chest Pain Verified 05/16/23 18:22 codeine AdvReac Nausea and Verified 05/16/23 18:22 Vomiting hydrocodone AdvReac Other Verified 05/16/23 18:22 ketorolac [From Toradol] AdvReac Palpitation Verified 05/16/23 18:22 s levofloxacin [From Levaquin] AdvReac Chest Pain Verified 05/16/23 18:22 nitrofurantoin AdvReac Chest Pain Verified 05/16/23 18:22 [From Macrobid] paroxetine [From Paxil] AdvReac Other Verified 05/16/23 18:22 Penicillins AdvReac Chest Pain Verified 05/16/23 18:22 Sulfa (Sulfonamide AdvReac Chest Pain Verified 05/16/23 18:22 Antibiotics) vancomycin AdvReac Chest Pain Verified 05/16/23 18:22 Review of Systems Review of Systems: CONSTITUTIONAL: Denies fever, chills, or sweats. EYES: Denies visual changes, redness, or discharge. ENT: Denies otalgia and sore throat CARDIOVASCULAR: Denies chest pain, palpitations, or edema. RESPIRATORY: Denies cough or dyspnea. GASTROINTESTINAL: Denies abdominal pain, nausea, vomiting, or diarrhea. GENITOURINARY: Dysuria SKIN: Denies rash or itching. MUSCULOSKELETAL: Denies back pain, joint pain, or myalgia. NEUROLOGIC: Denies headache, numbness, or weakness. Pertinent positives per HPI. [facility] Past Medical History Medical History Anxiety Bronchitis Constipation Depression Family history of malignant neoplasm of colon in father Genitourinary disorder Interstitial cystitis, urethral dilation GERD (gastroesophageal reflux disease) Interstitial cystitis Irritable bowel syndrome Irritable bowel syndrome with constipation Mitral valve prolapse Right hand fracture Urinary tract infection Vaginal delivery Surgical History Surgical History H/O hemorrhoidectomy H/O sinus surgery H/O tubal ligation H/O umbilical hernia repair History of facial surgery Nasal reconstruction History of hysterectomy History of orthopedic surgery Right knee, trigger release finger left hand History of tonsillectomy History of urinary tract surgery Family History Family History Grandparent Diabetes mellitus, Onset Age: 200 Cerebrovascular accident, Onset Age: 200 Father Family history of elevated blood lipids Carcinoma of colon Family history of coronary artery disease, Onset Age: 201 Patient's father is Grandparent Family history of malignant neoplasm Diabetes mellitus Cerebrovascular accident Hypertension Family history of cardiovascular disease Father Family history of congestive heart failure Patient's father is Hypertension Carcinoma of colon Family history of emphysema Family history of c
== END 2023-05-16 18:53 | disposition home or self-care (01) ==
PROVIDERS: Emergency Provider Nurse Practitioner Family
DX: N30.90 Cystitis, unspecified without hematuria (principal); Z87.891 Personal history of nicotine dependence
CPT/HCPCS: 81003; 99212; G0463

== ENCOUNTER 2023-05-25 11:43 | Emergency (ER) | payer BC, SELFPAY ==
[2023-05-25 11:52] VITALS: BP 131/116; PULSE 64; RESP 16; TEMP 36.3; O2SAT 100
--- NOTE | 2023-05-25 12:19 | ED.GENADULT ---
HPI - General Adult General Chief complaint: Urogenital-Female Stated complaint: Urinary Problem Source: patient Mode of arrival: ambulatory Limitations: no limitations History of Present Illness HPI narrative: Patient presents for evaluation of urinary symptoms for last 2 days. She has an underlying history of interstitial cystitis. She has been evaluated here on multiple occasions for urinary symptoms. She reports dysuria and urinary frequency for the last week. She denies any hematuria, dribbling, hesitancy, abdominal, low back pain, fever, chills, nausea, vomiting, vaginal bleeding/discharge. She indicates she has an appointment with Urology for a dilation of her urethra on 06/25/23. She believes her current symptoms are related to eating a banana prior to the time of symptom onset. Related Data Home Medications Medication Instructions Recorded Confirmed No Home Medications 04/25/23 05/25/23 Allergies Allergy/AdvReac Type Severity Reaction Status Date / Time latex Allergy Mild RASH-CONDOMS Verified 05/25/23 11:48 AND GLOVES clindamycin Allergy Hives Verified 05/25/23 11:48 gadobenic acid Allergy Hives Verified 05/25/23 11:48 [From contrast - MRI] iohexol Allergy Hives Verified 05/25/23 11:48 [From contrast - CT, X-RAY] lubiprostone [From Amitiza] Allergy Itching Verified 05/25/23 11:48 propoxyphene Allergy Other Verified 05/25/23 11:48 [From Darvocet-N 100] acetaminophen AdvReac Other Verified 05/25/23 11:48 amoxicillin AdvReac Chest Pain Verified 05/25/23 11:48 codeine AdvReac Nausea and Verified 05/25/23 11:48 Vomiting hydrocodone AdvReac Other Verified 05/25/23 11:48 ketorolac [From Toradol] AdvReac Palpitation Verified 05/25/23 11:48 s levofloxacin [From Levaquin] AdvReac Chest Pain Verified 05/25/23 11:48 nitrofurantoin AdvReac Chest Pain Verified 05/25/23 11:48 [From Macrobid] paroxetine [From Paxil] AdvReac Other Verified 05/25/23 11:48 Penicillins AdvReac Chest Pain Verified 05/25/23 11:48 Sulfa (Sulfonamide AdvReac Chest Pain Verified 05/25/23 11:48 Antibiotics) vancomycin AdvReac Chest Pain Verified 05/25/23 11:48 Review of Systems Review of Systems: CONSTITUTIONAL: Denies fever, chills, or sweats. EYES: Denies visual changes, redness, or discharge. ENT: Denies rhinorrhea, congestion, sore throat, or otalgia. CARDIOVASCULAR: Denies chest pain, palpitations, or edema. RESPIRATORY: Denies cough or dyspnea. GASTROINTESTINAL: Denies abdominal pain, nausea, vomiting, or diarrhea. GENITOURINARY: Reports dysuria and urinary frequency. Denies hesitancy, hematuria, vaginal bleeding/discharge SKIN: Denies rash or itching. MUSCULOSKELETAL: Denies back pain, joint pain, or myalgia. NEUROLOGIC: Denies headache, numbness, dizziness, or weakness. PSYCHIATRIC: Denies anxiety or depression. [facility] Past Medical History Medical History Anxiety Bronchitis Constipation Depression Family history of malignant neoplasm of colon in father Genitourinary disorder Interstitial cystitis, urethral dilation GERD (gastroesophageal reflux disease) Interstitial cystitis Irritable bowel syndrome Irritable bowel syndrome with constipation Mitral valve prolapse Right hand fracture Urinary tract infection Vaginal delivery Surgical History Surgical History H/O hemorrhoidectomy H/O sinus surgery H/O tubal ligation H/O umbilical hernia repair History of facial surgery Nasal reconstruction History of hysterectomy History of orthopedic surgery Right knee, trigger release finger left hand History of tonsillectomy History of urinary tract surgery Family History Family History Grandparent Diabetes mellitus, Onset Age: 200 Cerebrovascular accident, Onset Age: 200 Father Decea
== END 2023-05-25 12:20 | disposition home or self-care (01) ==
PROVIDERS: Emergency Provider Nurse Practitioner
DX: R30.0 Dysuria (principal); Z87.891 Personal history of nicotine dependence; K21.9 Gastro-esophageal reflux disease without esophagitis; I34.1 Nonrheumatic mitral (valve) prolapse
CPT/HCPCS: 81003; 99212; G0463

== ENCOUNTER 2023-05-27 13:49 | Emergency (ER) | payer BC, SELFPAY ==
[2023-05-27 13:55] VITALS: BP 129/85; PULSE 85; RESP 16; TEMP 36.8; O2SAT 100
--- NOTE | 2023-05-27 14:01 | ED.FEMALEGU ---
HPI - Female Genitourinary General Chief complaint: Urogenital-Female Stated complaint: BLADDER PROBLEMS Time Seen by Provider: 05/27/23 14:00 Source: patient Mode of arrival: ambulatory Limitations: no limitations History of Present Illness HPI Narrative: Yaquelin is a 48-year-old female patient presenting to the clinic today with complaints of urinary frequency and mild burning with urination x1 0.5 weeks. She denies any fever, chills, abdominal pain, or flank pain. History of chronic interstitial cystitis Related Data Home Medications Medication Instructions Recorded Confirmed No Home Medications 04/25/23 05/27/23 Allergies Allergy/AdvReac Type Severity Reaction Status Date / Time latex Allergy Mild RASH-CONDOMS Verified 05/27/23 13:54 AND GLOVES clindamycin Allergy Hives Verified 05/27/23 13:54 gadobenic acid Allergy Hives Verified 05/27/23 13:54 [From contrast - MRI] iohexol Allergy Hives Verified 05/27/23 13:54 [From contrast - CT, X-RAY] lubiprostone [From Amitiza] Allergy Itching Verified 05/27/23 13:54 propoxyphene Allergy Other Verified 05/27/23 13:54 [From Darvocet-N 100] acetaminophen AdvReac Other Verified 05/27/23 13:54 amoxicillin AdvReac Chest Pain Verified 05/27/23 13:54 codeine AdvReac Nausea and Verified 05/27/23 13:54 Vomiting hydrocodone AdvReac Other Verified 05/27/23 13:54 ketorolac [From Toradol] AdvReac Palpitation Verified 05/27/23 13:54 s levofloxacin [From Levaquin] AdvReac Chest Pain Verified 05/27/23 13:54 nitrofurantoin AdvReac Chest Pain Verified 05/27/23 13:54 [From Macrobid] paroxetine [From Paxil] AdvReac Other Verified 05/27/23 13:54 Penicillins AdvReac Chest Pain Verified 05/27/23 13:54 Sulfa (Sulfonamide AdvReac Chest Pain Verified 05/27/23 13:54 Antibiotics) vancomycin AdvReac Chest Pain Verified 05/27/23 13:54 Review of Systems Review of Systems: Pertinent positives per HPI. Patient denies any fever, chills, rash, headache, visual changes, dizziness, cough, runny nose, sore throat, shortness of breath, chest pain, palpitations, nausea, vomiting, diarrhea, constipation, or any abdominal pain. [facility] Past Medical History Medical History Anxiety Bronchitis Constipation Depression Family history of malignant neoplasm of colon in father Genitourinary disorder Interstitial cystitis, urethral dilation GERD (gastroesophageal reflux disease) Interstitial cystitis Irritable bowel syndrome Irritable bowel syndrome with constipation Mitral valve prolapse Right hand fracture Urinary tract infection Vaginal delivery Surgical History Surgical History H/O hemorrhoidectomy H/O sinus surgery H/O tubal ligation H/O umbilical hernia repair History of facial surgery Nasal reconstruction History of hysterectomy History of orthopedic surgery Right knee, trigger release finger left hand History of tonsillectomy History of urinary tract surgery Family History Family History Grandparent Diabetes mellitus, Onset Age: 200 Cerebrovascular accident, Onset Age: 200 Father Family history of elevated blood lipids Carcinoma of colon Family history of coronary artery disease, Onset Age: 201 Patient's father is Grandparent Family history of malignant neoplasm Diabetes mellitus Cerebrovascular accident Hypertension Family history of cardiovascular disease Father Family history of congestive heart failure Patient's father is Hypertension Carcinoma of colon Family history of emphysema Family history of cardiovascular disease Sibling Hypertension Grandparent Diabetes mellitus Social History Social History Social History: no caff
== END 2023-05-27 14:30 | disposition home or self-care (01) ==
PROVIDERS: Emergency Provider Nurse Practitioner Family; PCP Nurse Practitioner Family
DX: N30.10 Interstitial cystitis (chronic) without hematuria (principal); K21.9 Gastro-esophageal reflux disease without esophagitis; Z87.891 Personal history of nicotine dependence
CPT/HCPCS: 81003; 99212; G0463

== ENCOUNTER 2023-06-03 08:14 | Emergency (ER) | payer BC, SELFPAY ==
--- NOTE | 2023-06-03 08:16 | ED.FEMALEGU ---
HPI - Female Genitourinary General Chief complaint: Urogenital-Female Stated complaint: Urinary Problem Time Seen by Provider: 06/03/23 08:39 Source: patient and RN notes reviewed Mode of arrival: ambulatory Limitations: no limitations History of Present Illness HPI Narrative: 48-year-old female presents concern of urine frequency, dysuria that started last night. She reports she was scheduled to have her urethra dilated but her doctor was unavailable, he called her and clindamycin which she has not started taking. Patient reports recent unintended weight loss. She reports she is seeing a specialist. She denies fever, aches, chills, sweats, back pain, nausea vomiting MD elicited complaint: UTI Related Data Home Medications Medication Instructions Recorded Confirmed clindamycin HCl 300 mg capsule 300 mg PO TID 06/03/23 06/03/23 famotidine 20 mg tablet 20 mg PO BID 06/03/23 06/03/23 plecanatide 3 mg tablet (Trulance) 3 mg PO DAILY 06/03/23 06/03/23 Allergies Allergy/AdvReac Type Severity Reaction Status Date / Time latex Allergy Mild RASH-CONDOMS Verified 05/27/23 13:54 AND GLOVES clindamycin Allergy Hives Verified 05/27/23 13:54 gadobenic acid Allergy Hives Verified 05/27/23 13:54 [From contrast - MRI] iohexol Allergy Hives Verified 05/27/23 13:54 [From contrast - CT, X-RAY] lubiprostone [From Amitiza] Allergy Itching Verified 05/27/23 13:54 propoxyphene Allergy Other Verified 05/27/23 13:54 [From Darvocet-N 100] acetaminophen AdvReac Other Verified 05/27/23 13:54 amoxicillin AdvReac Chest Pain Verified 05/27/23 13:54 codeine AdvReac Nausea and Verified 05/27/23 13:54 Vomiting hydrocodone AdvReac Other Verified 05/27/23 13:54 ketorolac [From Toradol] AdvReac Palpitation Verified 05/27/23 13:54 s levofloxacin [From Levaquin] AdvReac Chest Pain Verified 05/27/23 13:54 nitrofurantoin AdvReac Chest Pain Verified 05/27/23 13:54 [From Macrobid] paroxetine [From Paxil] AdvReac Other Verified 05/27/23 13:54 Penicillins AdvReac Chest Pain Verified 05/27/23 13:54 Sulfa (Sulfonamide AdvReac Chest Pain Verified 05/27/23 13:54 Antibiotics) vancomycin AdvReac Chest Pain Verified 05/27/23 13:54 Review of Systems Review of Systems: CONSTITUTIONAL: Denies malaise, chills, sweats, or fever. CARDIOVASCULAR: Denies chest pain, palpitations, or edema. RESPIRATORY: Denies cough or dyspnea. GASTROINTESTINAL: Denies abdominal pain, nausea, vomiting, diarrhea GENITOURINARY: Reports dysuria, frequency. Denies urgency, suprapubic pressure. Denies flank pain or hematuria. SKIN: Denies rash or itching. MUSCULOSKELETAL: Denies back pain or myalgia. All systems reviewed & are unremarkable except as noted in HPI and below PMFSH Past Medical History Medical History Anxiety Bronchitis Constipation Depression Family history of malignant neoplasm of colon in father Genitourinary disorder Interstitial cystitis, urethral dilation GERD (gastroesophageal reflux disease) Interstitial cystitis Irritable bowel syndrome Irritable bowel syndrome with constipation Mitral valve prolapse Right hand fracture Urinary tract infection Vaginal delivery Surgical History Surgical History H/O hemorrhoidectomy H/O sinus surgery H/O tubal ligation H/O umbilical hernia repair History of facial surgery Nasal reconstruction History of hysterectomy History of orthopedic surgery Right knee, trigger release finger left hand History of tonsillectomy History of urinary tract surgery Family History Family History Grandparent Diabetes mellitus, Onset Age: 200 Cerebrovascular accident, Onset Age: 200 Father Family history of elevated blood lipids Carcinoma of colon Family history of coronar
[2023-06-03 08:20] VITALS: BP 111/82; PULSE 67; RESP 16; TEMP 36.4; O2SAT 100
== END 2023-06-03 08:54 | disposition home or self-care (01) ==
PROVIDERS: Emergency Provider Nurse Practitioner
DX: R30.0 Dysuria (principal); Z87.891 Personal history of nicotine dependence; K21.9 Gastro-esophageal reflux disease without esophagitis; I34.1 Nonrheumatic mitral (valve) prolapse
CPT/HCPCS: 81003; 99212; G0463

== ENCOUNTER 2023-06-25 08:39 | Emergency (ER) | payer BC, SELFPAY ==
[2023-06-25 08:44] VITALS: BP 119/90; PULSE 66; RESP 16; TEMP 36.9; O2SAT 100
--- NOTE | 2023-06-25 08:48 | ED.FEMALEGU ---
HPI - Female Genitourinary General Stated complaint: Urinary Problem Time Seen by Provider: 06/25/23 09:08 Source: patient and RN notes reviewed Mode of arrival: ambulatory Limitations: no limitations History of Present Illness HPI Narrative: 48 year old female with history of interstitial cystitis presents with concern for burning with urination. She reports she had a urethral dilation several weeks ago and since then has had a burning pain. She reports she has been seen in the ER several times since then. Reports she this started seeing a new urologist. She denies fever, aches, chills, sweats. MD elicited complaint: UTI Related Data Home Medications Medication Instructions Recorded Confirmed No Home Medications 06/25/23 06/25/23 Allergies Allergy/AdvReac Type Severity Reaction Status Date / Time latex Allergy Mild RASH-CONDOMS Verified 06/25/23 08:51 AND GLOVES clindamycin Allergy Hives Verified 06/25/23 08:51 gadobenic acid Allergy Hives Verified 06/25/23 08:51 [From contrast - MRI] iohexol Allergy Hives Verified 06/25/23 08:51 [From contrast - CT, X-RAY] lubiprostone [From Amitiza] Allergy Itching Verified 06/25/23 08:51 propoxyphene Allergy Other Verified 06/25/23 08:51 [From Darvocet-N 100] acetaminophen AdvReac Other Verified 06/25/23 08:51 amoxicillin AdvReac Chest Pain Verified 06/25/23 08:51 codeine AdvReac Nausea and Verified 06/25/23 08:51 Vomiting hydrocodone AdvReac Other Verified 06/25/23 08:51 ketorolac [From Toradol] AdvReac Palpitation Verified 06/25/23 08:51 s levofloxacin [From Levaquin] AdvReac Chest Pain Verified 06/25/23 08:51 nitrofurantoin AdvReac Chest Pain Verified 06/25/23 08:51 [From Macrobid] paroxetine [From Paxil] AdvReac Other Verified 06/25/23 08:51 Penicillins AdvReac Chest Pain Verified 06/25/23 08:51 Sulfa (Sulfonamide AdvReac Chest Pain Verified 06/25/23 08:51 Antibiotics) vancomycin AdvReac Chest Pain Verified 06/25/23 08:51 Review of Systems Review of Systems: CONSTITUTIONAL: Denies malaise, chills, sweats, or fever. CARDIOVASCULAR: Denies chest pain, palpitations, or edema. RESPIRATORY: Denies cough or dyspnea. GASTROINTESTINAL: Denies abdominal pain, nausea, vomiting, diarrhea GENITOURINARY: Reports dysuria, frequency. Denies urgency, suprapubic pressure. Denies flank pain or hematuria. SKIN: Denies rash or itching. MUSCULOSKELETAL: Denies back pain or myalgia. All systems reviewed & are unremarkable except as noted in HPI and below PMFSH Past Medical History Medical History Anxiety Bronchitis Constipation Depression Family history of malignant neoplasm of colon in father Genitourinary disorder Interstitial cystitis, urethral dilation GERD (gastroesophageal reflux disease) Interstitial cystitis Irritable bowel syndrome Irritable bowel syndrome with constipation Mitral valve prolapse Right hand fracture Urinary tract infection Vaginal delivery Surgical History Surgical History H/O hemorrhoidectomy H/O sinus surgery H/O tubal ligation H/O umbilical hernia repair History of facial surgery Nasal reconstruction History of hysterectomy History of orthopedic surgery Right knee, trigger release finger left hand History of tonsillectomy History of urinary tract surgery Family History Family History Grandparent Diabetes mellitus, Onset Age: 200 Cerebrovascular accident, Onset Age: 200 Father Family history of elevated blood lipids Carcinoma of colon Family history of coronary artery disease, Onset Age: 201 Patient's father is Grandparent Family history of malignant neoplasm Diabetes mellitus Cerebrovascular accident Hypertension Family history of cardiovascular disease
== END 2023-06-25 09:13 | disposition home or self-care (01) ==
PROVIDERS: Emergency Provider Nurse Practitioner
DX: R30.0 Dysuria (principal); Z87.891 Personal history of nicotine dependence; K21.9 Gastro-esophageal reflux disease without esophagitis; I34.1 Nonrheumatic mitral (valve) prolapse
CPT/HCPCS: 81003; 99212; G0463

== ENCOUNTER 2023-07-06 08:13 | Emergency (ER) | payer BC, SELFPAY ==
--- NOTE | 2023-07-06 08:28 | ED.FEMALEGU ---
HPI - Female Genitourinary General Chief complaint: Urogenital-Female Stated complaint: UTI Source: patient and RN notes reviewed History of Present Illness HPI Narrative: 48 yo F presents to urgent care with complaints of dark urine x 2 days. Pt has no other complaints. Pt has an EGD scheduled for this week. Related Data Home Medications Medication Instructions Recorded Confirmed No Home Medications 06/25/23 07/06/23 Allergies Allergy/AdvReac Type Severity Reaction Status Date / Time latex Allergy Mild RASH-CONDOMS Verified 07/06/23 08:39 AND GLOVES clindamycin Allergy Hives Verified 07/06/23 08:39 gadobenic acid Allergy Hives Verified 07/06/23 08:39 [From contrast - MRI] iohexol Allergy Hives Verified 07/06/23 08:39 [From contrast - CT, X-RAY] lubiprostone [From Amitiza] Allergy Itching Verified 07/06/23 08:39 propoxyphene Allergy Other Verified 07/06/23 08:39 [From Darvocet-N 100] acetaminophen AdvReac Other Verified 07/06/23 08:39 amoxicillin AdvReac Chest Pain Verified 07/06/23 08:39 codeine AdvReac Nausea and Verified 07/06/23 08:39 Vomiting hydrocodone AdvReac Other Verified 07/06/23 08:39 ketorolac [From Toradol] AdvReac Palpitation Verified 07/06/23 08:39 s levofloxacin [From Levaquin] AdvReac Chest Pain Verified 07/06/23 08:39 nitrofurantoin AdvReac Chest Pain Verified 07/06/23 08:39 [From Macrobid] paroxetine [From Paxil] AdvReac Other Verified 07/06/23 08:39 Penicillins AdvReac Chest Pain Verified 07/06/23 08:39 Sulfa (Sulfonamide AdvReac Chest Pain Verified 07/06/23 08:39 Antibiotics) vancomycin AdvReac Chest Pain Verified 07/06/23 08:39 Review of Systems Review of Systems: CONSTITUTIONAL: Denies fever, chills, or sweats. EYES: Denies visual changes, redness, or discharge. ENT: Denies otalgia and sore throat CARDIOVASCULAR: Denies chest pain, palpitations, or edema. RESPIRATORY: Denies cough or dyspnea. GASTROINTESTINAL: Denies abdominal pain, nausea, vomiting, or diarrhea. GENITOURINARY: Dark urine SKIN: Denies rash or itching. MUSCULOSKELETAL: Denies back pain, joint pain, or myalgia. NEUROLOGIC: Denies headache, numbness, or weakness. Pertinent positives per HPI. [facility] Past Medical History Medical History Anxiety Bronchitis Constipation Depression Family history of malignant neoplasm of colon in father Genitourinary disorder Interstitial cystitis, urethral dilation GERD (gastroesophageal reflux disease) Interstitial cystitis Irritable bowel syndrome Irritable bowel syndrome with constipation Mitral valve prolapse Right hand fracture Urinary tract infection Vaginal delivery Surgical History Surgical History H/O hemorrhoidectomy H/O sinus surgery H/O tubal ligation H/O umbilical hernia repair History of facial surgery Nasal reconstruction History of hysterectomy History of orthopedic surgery Right knee, trigger release finger left hand History of tonsillectomy History of urinary tract surgery Family History Family History Grandparent Diabetes mellitus, Onset Age: 200 Cerebrovascular accident, Onset Age: 200 Father Family history of elevated blood lipids Carcinoma of colon Family history of coronary artery disease, Onset Age: 201 Patient's father is Grandparent Family history of malignant neoplasm Diabetes mellitus Cerebrovascular accident Hypertension Family history of cardiovascular disease Father Family history of congestive heart failure Patient's father is Hypertension Carcinoma of colon Family history of emphysema Family history of cardiovascular disease Sibling Hypertension Grandparent Diabetes mellitus Social History Social History (Reviewed
[2023-07-06 08:32] VITALS: BP 123/80; PULSE 91; RESP 16; TEMP 36.7; O2SAT 100
== END 2023-07-06 09:24 | disposition home or self-care (01) ==
PROVIDERS: Emergency Provider Nurse Practitioner Family; PCP Nurse Practitioner Family
DX: N30.90 Cystitis, unspecified without hematuria (principal); Z87.891 Personal history of nicotine dependence; K21.9 Gastro-esophageal reflux disease without esophagitis; I34.1 Nonrheumatic mitral (valve) prolapse
CPT/HCPCS: 81003; 99212; G0463

== ENCOUNTER 2023-07-19 08:55 | Emergency (ER) | payer BC, SELFPAY ==
[2023-07-19 09:01] VITALS: BP 117/78; PULSE 64; RESP 16; TEMP 36.5; O2SAT 100
--- NOTE | 2023-07-19 09:42 | ED.GENADULT ---
HPI - General Adult General Chief complaint: Urogenital-Female Stated complaint: bladder inf Source: patient Mode of arrival: ambulatory Limitations: no limitations History of Present Illness HPI narrative: Patient presents for evaluation of urinary frequency and bladder spasms for the last 2 days. No fever, chills, nausea, vomiting, abdominal pain, low back pain, dysuria, hematuria. She has a history of interstitial cystitis. She is not taking any medications to assist with her symptoms. She is seen here frequently for similar symptoms. No additional complaints or concerns. Related Data Home Medications Medication Instructions Recorded Confirmed No Home Medications 06/25/23 07/19/23 Allergies Allergy/AdvReac Type Severity Reaction Status Date / Time latex Allergy Mild RASH-CONDOMS Verified 07/19/23 09:20 AND GLOVES clindamycin Allergy Hives Verified 07/19/23 09:20 gadobenic acid Allergy Hives Verified 07/19/23 09:20 [From contrast - MRI] iohexol Allergy Hives Verified 07/19/23 09:20 [From contrast - CT, X-RAY] lubiprostone [From Amitiza] Allergy Itching Verified 07/19/23 09:20 propoxyphene Allergy Other Verified 07/19/23 09:20 [From Darvocet-N 100] acetaminophen AdvReac Other Verified 07/19/23 09:20 amoxicillin AdvReac Chest Pain Verified 07/19/23 09:20 codeine AdvReac Nausea and Verified 07/19/23 09:20 Vomiting hydrocodone AdvReac Other Verified 07/19/23 09:20 ketorolac [From Toradol] AdvReac Palpitation Verified 07/19/23 09:20 s levofloxacin [From Levaquin] AdvReac Chest Pain Verified 07/19/23 09:20 nitrofurantoin AdvReac Chest Pain Verified 07/19/23 09:20 [From Macrobid] paroxetine [From Paxil] AdvReac Other Verified 07/19/23 09:20 Penicillins AdvReac Chest Pain Verified 07/19/23 09:20 Sulfa (Sulfonamide AdvReac Chest Pain Verified 07/19/23 09:20 Antibiotics) vancomycin AdvReac Chest Pain Verified 07/19/23 09:20 Review of Systems Review of Systems: CONSTITUTIONAL: Denies fever, chills, or sweats. EYES: Denies visual changes, redness, or discharge. ENT: Denies rhinorrhea, congestion, sore throat, or otalgia. CARDIOVASCULAR: Denies chest pain, palpitations, or edema. RESPIRATORY: Denies cough or dyspnea. GASTROINTESTINAL: Denies abdominal pain, nausea, vomiting, or diarrhea. GENITOURINARY: Reports urinary frequency and bladder spasms. Denies dysuria, hematuria, hesitancy or urgency SKIN: Denies rash or itching. MUSCULOSKELETAL: Denies back pain, joint pain, or myalgia. NEUROLOGIC: Denies headache, numbness, dizziness, or weakness. PSYCHIATRIC: Denies anxiety or depression. [facility] Past Medical History Medical History Anxiety Bronchitis Constipation Depression Family history of malignant neoplasm of colon in father Genitourinary disorder Interstitial cystitis, urethral dilation GERD (gastroesophageal reflux disease) Interstitial cystitis Irritable bowel syndrome Irritable bowel syndrome with constipation Mitral valve prolapse Right hand fracture Urinary tract infection Vaginal delivery Surgical History Surgical History H/O hemorrhoidectomy H/O sinus surgery H/O tubal ligation H/O umbilical hernia repair History of facial surgery Nasal reconstruction History of hysterectomy History of orthopedic surgery Right knee, trigger release finger left hand History of tonsillectomy History of urinary tract surgery Family History Family History Grandparent Diabetes mellitus, Onset Age: 200 Cerebrovascular accident, Onset Age: 200 Father Family history of elevated blood lipids Carcinoma of colon Family history of coronary artery disease, Onset Age: 201 Patient's father is Grandparent Family history of malignant neoplasm Diabete
== END 2023-07-19 09:43 | disposition home or self-care (01) ==
PROVIDERS: Emergency Provider Nurse Practitioner; PCP Nurse Practitioner Family
DX: N30.10 Interstitial cystitis (chronic) without hematuria (principal); Z87.891 Personal history of nicotine dependence; K21.9 Gastro-esophageal reflux disease without esophagitis; I34.1 Nonrheumatic mitral (valve) prolapse
CPT/HCPCS: 81003; 99212; G0463

== ENCOUNTER 2023-07-27 13:45 | Emergency (ER) | payer BC, SELFPAY ==
[2023-07-27 13:54] VITALS: BP 135/81; PULSE 66; RESP 20; TEMP 36.9; O2SAT 100
--- NOTE | 2023-07-27 15:11 | ED.GENADULT ---
HPI - General Adult General Chief complaint: Urogenital-Female Stated complaint: UTI check Source: patient Mode of arrival: ambulatory Limitations: no limitations History of Present Illness HPI narrative: Patient presents for evaluation of urinary frequency for the last week. She has a history of interstitial cystitis. She was evaluated by Urology brought a week ago per reports. She indicates that she was advised at that time that she did not have an infection and no intervention was necessary at that time. She denies any fever chills, nausea, vomiting, hematuria. She indicates that it is often time challenging for her to tell when she has a urinary tract infection as her symptoms often mimic those seen with IC. Related Data Home Medications Medication Instructions Recorded Confirmed No Home Medications 06/25/23 07/27/23 Allergies Allergy/AdvReac Type Severity Reaction Status Date / Time latex Allergy Mild RASH-CONDOMS Verified 07/27/23 14:20 AND GLOVES clindamycin Allergy Hives Verified 07/27/23 14:20 gadobenic acid Allergy Hives Verified 07/27/23 14:20 [From contrast - MRI] iohexol Allergy Hives Verified 07/27/23 14:20 [From contrast - CT, X-RAY] lubiprostone [From Amitiza] Allergy Itching Verified 07/27/23 14:20 propoxyphene Allergy Other Verified 07/27/23 14:20 [From Darvocet-N 100] acetaminophen AdvReac Other Verified 07/27/23 14:20 amoxicillin AdvReac Chest Pain Verified 07/27/23 14:20 codeine AdvReac Nausea and Verified 07/27/23 14:20 Vomiting hydrocodone AdvReac Other Verified 07/27/23 14:20 ketorolac [From Toradol] AdvReac Palpitation Verified 07/27/23 14:20 s levofloxacin [From Levaquin] AdvReac Chest Pain Verified 07/27/23 14:20 nitrofurantoin AdvReac Chest Pain Verified 07/27/23 14:20 [From Macrobid] paroxetine [From Paxil] AdvReac Other Verified 07/27/23 14:20 Penicillins AdvReac Chest Pain Verified 07/27/23 14:20 Sulfa (Sulfonamide AdvReac Chest Pain Verified 07/27/23 14:20 Antibiotics) vancomycin AdvReac Chest Pain Verified 07/27/23 14:20 Review of Systems Review of Systems: CONSTITUTIONAL: Denies fever, chills, or sweats. EYES: Denies visual changes, redness, or discharge. ENT: Denies rhinorrhea, congestion, sore throat, or otalgia. CARDIOVASCULAR: Denies chest pain, palpitations, or edema. RESPIRATORY: Denies cough or dyspnea. GASTROINTESTINAL: Denies abdominal pain, nausea, vomiting, or diarrhea. GENITOURINARY: Reports urinary frequency. Denies dysuria or hematuria. SKIN: Denies rash or itching. MUSCULOSKELETAL: Denies back pain, joint pain, or myalgia. NEUROLOGIC: Denies headache, numbness, dizziness, or weakness. PSYCHIATRIC: Denies anxiety or depression. [facility] Past Medical History Medical History Anxiety Bronchitis Constipation Depression Family history of malignant neoplasm of colon in father Genitourinary disorder Interstitial cystitis, urethral dilation GERD (gastroesophageal reflux disease) Interstitial cystitis Irritable bowel syndrome Irritable bowel syndrome with constipation Mitral valve prolapse Right hand fracture Urinary tract infection Vaginal delivery Surgical History Surgical History H/O hemorrhoidectomy H/O sinus surgery H/O tubal ligation H/O umbilical hernia repair History of facial surgery Nasal reconstruction History of hysterectomy History of orthopedic surgery Right knee, trigger release finger left hand History of tonsillectomy History of urinary tract surgery Family History Family History Grandparent Diabetes mellitus, Onset Age: 200 Cerebrovascular accident, Onset Age: 200 Father Family history of elevated blood lipids Carcinoma of colon Family history of coronary artery disease, O
== END 2023-07-27 15:15 | disposition home or self-care (01) ==
PROVIDERS: Emergency Provider Nurse Practitioner; PCP Nurse Practitioner Family
DX: N30.10 Interstitial cystitis (chronic) without hematuria (principal); Z87.891 Personal history of nicotine dependence
CPT/HCPCS: 81003; 99212; G0463

== ENCOUNTER 2023-08-04 11:50 | Emergency (ER) | payer BC, SELFPAY ==
[2023-08-04 11:56] VITALS: BP 121/84; PULSE 61; RESP 20; TEMP 36.8; O2SAT 100
--- NOTE | 2023-08-04 12:44 | ED.FEMALEGU ---
HPI - Female Genitourinary General Chief complaint: Urogenital-Female Stated complaint: Urinary Problem Time Seen by Provider: 08/04/23 12:40 Source: patient, RN notes reviewed and old records reviewed Mode of arrival: ambulatory Limitations: no limitations History of Present Illness HPI Narrative: 48 year old female who resent to express care with complaints of 2 day history of burning on urination andvurethral discomfort. Patient reports that she is seeing new GI doctor for her IBS problems and her difficulty gaining weight back since she had hernia surgery last year. Patient reports no recent episodes of diarrhea. MD elicited complaint: other (burning on urination) Pertinent past history: interstitial cystits and other (IBS) Onset (ago): day(s) (2) Location of symptoms: urethra Severity: moderate Female Urogenital Radiation: Non-Radiating Quality of pain: burning and other (pressure) Related Data Home Medications Medication Instructions Recorded Confirmed No Home Medications 06/25/23 07/27/23 Allergies Allergy/AdvReac Type Severity Reaction Status Date / Time latex Allergy Mild RASH-CONDOMS Verified 07/27/23 14:20 AND GLOVES clindamycin Allergy Hives Verified 07/27/23 14:20 gadobenic acid Allergy Hives Verified 07/27/23 14:20 [From contrast - MRI] iohexol Allergy Hives Verified 07/27/23 14:20 [From contrast - CT, X-RAY] lubiprostone [From Amitiza] Allergy Itching Verified 07/27/23 14:20 propoxyphene Allergy Other Verified 07/27/23 14:20 [From Darvocet-N 100] acetaminophen AdvReac Other Verified 07/27/23 14:20 amoxicillin AdvReac Chest Pain Verified 07/27/23 14:20 codeine AdvReac Nausea and Verified 07/27/23 14:20 Vomiting hydrocodone AdvReac Other Verified 07/27/23 14:20 ketorolac [From Toradol] AdvReac Palpitation Verified 07/27/23 14:20 s levofloxacin [From Levaquin] AdvReac Chest Pain Verified 07/27/23 14:20 nitrofurantoin AdvReac Chest Pain Verified 07/27/23 14:20 [From Macrobid] paroxetine [From Paxil] AdvReac Other Verified 07/27/23 14:20 Penicillins AdvReac Chest Pain Verified 07/27/23 14:20 Sulfa (Sulfonamide AdvReac Chest Pain Verified 07/27/23 14:20 Antibiotics) vancomycin AdvReac Chest Pain Verified 07/27/23 14:20 Review of Systems Review of Systems: CONSTITUTIONAL: Denies fever, chills, or sweats. CARDIOVASCULAR: Denies chest pain, palpitations, or edema. RESPIRATORY: Denies cough or dyspnea. GASTROINTESTINAL: Denies abdominal pain, nausea, vomiting, or diarrhea. GENITOURINARY: Reports dysuria, frequency, urgency. Denies flank pain or hematuria. SKIN: Denies rash or itching. MUSCULOSKELETAL: Denies back pain or myalgia. Denies CVA tenderness NEUROLOGIC: Denies headache All systems reviewed & are unremarkable except as noted in HPI and below PMFSH Past Medical History Medical History Anxiety Bronchitis Constipation Depression Family history of malignant neoplasm of colon in father Genitourinary disorder Interstitial cystitis, urethral dilation GERD (gastroesophageal reflux disease) Interstitial cystitis Irritable bowel syndrome Irritable bowel syndrome with constipation Mitral valve prolapse Right hand fracture Urinary tract infection Vaginal delivery Surgical History Surgical History H/O hemorrhoidectomy H/O sinus surgery H/O tubal ligation H/O umbilical hernia repair History of facial surgery Nasal reconstruction History of hysterectomy History of orthopedic surgery Right knee, trigger release finger left hand History of tonsillectomy History of urinary tract surgery Family History Family History Grandparent Diabetes mellitus, Onset Age: 200 Cerebrovascular accident, Onset Age: 200 Father Family history of elevated blood lipids
== END 2023-08-04 12:54 | disposition home or self-care (01) ==
PROVIDERS: Emergency Provider Registered Nurse; PCP Nurse Practitioner Family
DX: R30.0 Dysuria (principal); Z87.891 Personal history of nicotine dependence; K21.9 Gastro-esophageal reflux disease without esophagitis; I34.1 Nonrheumatic mitral (valve) prolapse
CPT/HCPCS: 81003; 99212; G0463

== ENCOUNTER 2023-08-09 11:56 | Emergency (ER) | payer BC, SELFPAY ==
[2023-08-09 12:03] VITALS: BP 117/74; PULSE 66; RESP 16; TEMP 36.6; O2SAT 99
--- NOTE | 2023-08-09 12:17 | ED.FEMALEGU ---
HPI - Female Genitourinary General Chief complaint: Urogenital-Female Stated complaint: bladder inf Source: patient Mode of arrival: ambulatory Limitations: no limitations History of Present Illness HPI Narrative: 48-year-old female presents to [facility] with complaints of lower abdominal pressure and bladder pain for the past 2-3 days. Patient has long history of interstitial cystitis and has been seen at this location numerous times for similar symptoms. Patient was last seen here on August 04, diagnosed with dysuria and was given no antibiotic at that time. Patient reports that she is scheduled to see a urologist in 10 days. Patient denies fever, body aches, chills, nausea, vomiting, diarrhea, abdominal pain or flank pain MD elicited complaint: other (Bladder pain, lower abdominal pressure) Pertinent past history: other (Interstitial cystitis) Exacerbating factors: none Relieving factors: none Associated symptoms: denies other symptoms Related Data Home Medications Medication Instructions Recorded Confirmed No Home Medications 06/25/23 07/27/23 Allergies Allergy/AdvReac Type Severity Reaction Status Date / Time latex Allergy Mild RASH-CONDOMS Verified 07/27/23 14:20 AND GLOVES clindamycin Allergy Hives Verified 07/27/23 14:20 gadobenic acid Allergy Hives Verified 07/27/23 14:20 [From contrast - MRI] iohexol Allergy Hives Verified 07/27/23 14:20 [From contrast - CT, X-RAY] lubiprostone [From Amitiza] Allergy Itching Verified 07/27/23 14:20 propoxyphene Allergy Other Verified 07/27/23 14:20 [From Darvocet-N 100] acetaminophen AdvReac Other Verified 07/27/23 14:20 amoxicillin AdvReac Chest Pain Verified 07/27/23 14:20 codeine AdvReac Nausea and Verified 07/27/23 14:20 Vomiting hydrocodone AdvReac Other Verified 07/27/23 14:20 ketorolac [From Toradol] AdvReac Palpitation Verified 07/27/23 14:20 s levofloxacin [From Levaquin] AdvReac Chest Pain Verified 07/27/23 14:20 nitrofurantoin AdvReac Chest Pain Verified 07/27/23 14:20 [From Macrobid] paroxetine [From Paxil] AdvReac Other Verified 07/27/23 14:20 Penicillins AdvReac Chest Pain Verified 07/27/23 14:20 Sulfa (Sulfonamide AdvReac Chest Pain Verified 07/27/23 14:20 Antibiotics) vancomycin AdvReac Chest Pain Verified 07/27/23 14:20 Review of Systems Constitutional: Constitutional: Denies chills and Denies fatigue ENT: Denies vertigo, Denies dizziness, Denies epistaxis and Denies nasal congestion Cardiovascular: Cardiovascular: Denies chest pain Respiratory: Respiratory: Denies cough, Denies dyspnea and Denies wheezing Gastrointestinal: Gastrointestinal: Reports abdominal pain, Denies diarrhea, Denies nausea and Denies vomiting Genitourinary: Genitourinary: Denies abnormal vaginal bleeding, Denies hematuria, Denies nocturia, Denies genital lesions, Denies dysuria, Denies pelvic pain, Denies flank pain, Denies urinary incontinence and Denies vaginal discharge Comments: Bladder pain Musculoskeletal: Musculoskeletal: Denies back pain Integumentary/Breasts: Skin/Breast: Denies pruritus, Denies rash and Denies skin ulcer Neurologic: Denies dizziness, Denies syncope and Denies headache(s) [facility] Past Medical History Medical History Anxiety Bronchitis Constipation Depression Family history of malignant neoplasm of colon in father Genitourinary disorder Interstitial cystitis, urethral dilation GERD (gastroesophageal reflux disease) Interstitial cystitis Irritable bowel syndrome Irritable bowel syndrome with constipation Mitral valve prolapse Right hand fracture Urinary tract infection Vaginal delivery Surgical History Surgical History H/O hemorrhoidectomy H/O sinus surgery H/O tubal ligation H/O umbilical hernia repair History of facial surgery Nasal reconstruction History of h
== END 2023-08-09 12:25 | disposition home or self-care (01) ==
PROVIDERS: Emergency Provider Nurse Practitioner Family; PCP Nurse Practitioner Family
DX: N30.10 Interstitial cystitis (chronic) without hematuria (principal); Z87.891 Personal history of nicotine dependence; K21.9 Gastro-esophageal reflux disease without esophagitis; I34.1 Nonrheumatic mitral (valve) prolapse
CPT/HCPCS: 81003; 99212; G0463

== ENCOUNTER 2023-08-14 09:24 | Emergency (ER) | payer BC, SELFPAY ==
[2023-08-14 09:34] VITALS: BP 118/56; PULSE 65; RESP 16; TEMP 36.6; O2SAT 100
--- NOTE | 2023-08-14 09:56 | ED.FEMALEGU ---
HPI - Female Genitourinary General Chief complaint: Urogenital-Female Stated complaint: BLADDER PROBLEMS Time Seen by Provider: 08/14/23 09:56 Source: patient and RN notes reviewed Mode of arrival: ambulatory Limitations: no limitations History of Present Illness HPI Narrative: 48-year-old female with hx chronic interstitial cystitis and IBS-C presents for complaints of lower abdominal pressure and bladder pain for the past 2-3 days.? Patient has long history of interstitial cystitis and has been seen numerous times for similar symptoms.? Patient was last seen here on July 19, , , , diagnosed with dysuria and was given no antibiotic at that time.? Patient reports that she is scheduled to see a urologist in August.? Patient denies fever, body aches, chills, nausea, vomiting, diarrhea, abdominal pain or flank pain. Denies concern for STD or . Related Data Home Medications Medication Instructions Recorded Confirmed No Home Medications 06/25/23 08/14/23 Allergies Allergy/AdvReac Type Severity Reaction Status Date / Time latex Allergy Mild RASH-CONDOMS Verified 07/27/23 14:20 AND GLOVES clindamycin Allergy Hives Verified 07/27/23 14:20 gadobenic acid Allergy Hives Verified 07/27/23 14:20 [From contrast - MRI] iohexol Allergy Hives Verified 07/27/23 14:20 [From contrast - CT, X-RAY] lubiprostone [From Amitiza] Allergy Itching Verified 07/27/23 14:20 propoxyphene Allergy Other Verified 07/27/23 14:20 [From Darvocet-N 100] acetaminophen AdvReac Other Verified 07/27/23 14:20 amoxicillin AdvReac Chest Pain Verified 07/27/23 14:20 codeine AdvReac Nausea and Verified 07/27/23 14:20 Vomiting hydrocodone AdvReac Other Verified 07/27/23 14:20 ketorolac [From Toradol] AdvReac Palpitation Verified 07/27/23 14:20 s levofloxacin [From Levaquin] AdvReac Chest Pain Verified 07/27/23 14:20 nitrofurantoin AdvReac Chest Pain Verified 07/27/23 14:20 [From Macrobid] paroxetine [From Paxil] AdvReac Other Verified 07/27/23 14:20 Penicillins AdvReac Chest Pain Verified 07/27/23 14:20 Sulfa (Sulfonamide AdvReac Chest Pain Verified 07/27/23 14:20 Antibiotics) vancomycin AdvReac Chest Pain Verified 07/27/23 14:20 Review of Systems Review of Systems: CONSTITUTIONAL: Denies body aches, fever, chills, or sweats. CARDIOVASCULAR: Denies chest pain, palpitations, or edema. RESPIRATORY: Denies cough or dyspnea. GASTROINTESTINAL: Denies abdominal pain, nausea, vomiting, or diarrhea. GENITOURINARY: Reports dysuria, frequency, denies hematuria, flank pain SKIN: Denies rash, itching, or wounds. MUSCULOSKELETAL: Denies back pain or myalgia. [facility] Past Medical History Medical History Anxiety Bronchitis Constipation Depression Family history of malignant neoplasm of colon in father Genitourinary disorder Interstitial cystitis, urethral dilation GERD (gastroesophageal reflux disease) Interstitial cystitis Irritable bowel syndrome Irritable bowel syndrome with constipation Mitral valve prolapse Right hand fracture Urinary tract infection Vaginal delivery Surgical History Surgical History H/O hemorrhoidectomy H/O sinus surgery H/O tubal ligation H/O umbilical hernia repair History of facial surgery Nasal reconstruction History of hysterectomy History of orthopedic surgery Right knee, trigger release finger left hand History of tonsillectomy History of urinary tract surgery Family History Family History Grandparent Diabetes mellitus, Onset Age: 200 Cerebrovascular accident, Onset Age: 200 Father Family history of elevated blood lipids Carcinoma of colon Family history of coronary artery disease, Onset Age: 201 Patient's father is Grandparent Family histor
== END 2023-08-14 10:11 | disposition home or self-care (01) ==
PROVIDERS: Emergency Provider Nurse Practitioner Family; PCP Nurse Practitioner Family
DX: R30.0 Dysuria (principal); Z87.891 Personal history of nicotine dependence
CPT/HCPCS: 81003; 87086; 99213; G0463

== ENCOUNTER 2023-08-21 16:08 | Emergency (ER) | payer BC, SELFPAY ==
--- NOTE | 2023-08-21 16:17 | ED.URI ---
HPI - URI/Sore Throat General Chief Complaint: Urogenital-Female Stated Complaint: Urinary Problem Time Seen by Provider: 08/21/23 16:20 Source: patient Mode of arrival: ambulatory Limitations: no limitations History of Present Illness HPI Narrative: Yaquelin is a 48-year-old female patient presenting to the clinic today with complaints of a possible urinary tract infection. She is reporting burning with urination x1 week. Contacted her urologist and they are unable to get her in for 3 weeks. She would like to have her urine tested today in the clinic. Denies any fever or chills. Related Data Home Medications Medication Instructions Recorded Confirmed No Home Medications 06/25/23 08/14/23 Allergies Allergy/AdvReac Type Severity Reaction Status Date / Time latex Allergy Mild RASH-CONDOMS Verified 08/21/23 16:19 AND GLOVES clindamycin Allergy Hives Verified 08/21/23 16:19 gadobenic acid Allergy Hives Verified 08/21/23 16:19 [From contrast - MRI] iohexol Allergy Hives Verified 08/21/23 16:19 [From contrast - CT, X-RAY] lubiprostone [From Amitiza] Allergy Itching Verified 08/21/23 16:19 propoxyphene Allergy Other Verified 08/21/23 16:19 [From Darvocet-N 100] acetaminophen AdvReac Other Verified 08/21/23 16:19 amoxicillin AdvReac Chest Pain Verified 08/21/23 16:19 codeine AdvReac Nausea and Verified 08/21/23 16:19 Vomiting hydrocodone AdvReac Other Verified 08/21/23 16:19 ketorolac [From Toradol] AdvReac Palpitation Verified 08/21/23 16:19 s levofloxacin [From Levaquin] AdvReac Chest Pain Verified 08/21/23 16:19 nitrofurantoin AdvReac Chest Pain Verified 08/21/23 16:19 [From Macrobid] paroxetine [From Paxil] AdvReac Other Verified 08/21/23 16:19 Penicillins AdvReac Chest Pain Verified 08/21/23 16:19 Sulfa (Sulfonamide AdvReac Chest Pain Verified 08/21/23 16:19 Antibiotics) vancomycin AdvReac Chest Pain Verified 08/21/23 16:19 Review of Systems Review of Systems: Pertinent positives per HPI. Patient denies any fever, chills, rash, headache, visual changes, dizziness, cough, runny nose, sore throat, shortness of breath, chest pain, palpitations, nausea, vomiting, diarrhea, constipation, abdominal pain. [facility] Past Medical History Medical History Anxiety Bronchitis Constipation Depression Family history of malignant neoplasm of colon in father Genitourinary disorder Interstitial cystitis, urethral dilation GERD (gastroesophageal reflux disease) Interstitial cystitis Irritable bowel syndrome Irritable bowel syndrome with constipation Mitral valve prolapse Right hand fracture Urinary tract infection Vaginal delivery Surgical History Surgical History H/O hemorrhoidectomy H/O sinus surgery H/O tubal ligation H/O umbilical hernia repair History of facial surgery Nasal reconstruction History of hysterectomy History of orthopedic surgery Right knee, trigger release finger left hand History of tonsillectomy History of urinary tract surgery Family History Family History Grandparent Diabetes mellitus, Onset Age: 200 Cerebrovascular accident, Onset Age: 200 Father Family history of elevated blood lipids Carcinoma of colon Family history of coronary artery disease, Onset Age: 201 Patient's father is Grandparent Family history of malignant neoplasm Diabetes mellitus Cerebrovascular accident Hypertension Family history of cardiovascular disease Father Family history of congestive heart failure Patient's father is Hypertension Carcinoma of colon Family history of emphysema Family history of cardiovascular disease Sibling Hypertension Grandparent Diabetes mellitus Social History Social History (Reviewed 08/21/23 @ 16:2
[2023-08-21 16:19] VITALS: BP 140/81; PULSE 69; RESP 18; TEMP 36.4; O2SAT 100
== END 2023-08-21 16:50 | disposition home or self-care (01) ==
PROVIDERS: Emergency Provider Nurse Practitioner Family
DX: N30.10 Interstitial cystitis (chronic) without hematuria (principal); Z87.891 Personal history of nicotine dependence; K21.9 Gastro-esophageal reflux disease without esophagitis; I34.1 Nonrheumatic mitral (valve) prolapse
CPT/HCPCS: 81003; 99212; G0463

== ENCOUNTER 2023-09-01 15:55 | Emergency (ER) | payer BC, SELFPAY ==
[2023-09-01 15:58] VITALS: BP 132/87; PULSE 69; RESP 20; TEMP 36.3; O2SAT 99
--- NOTE | 2023-09-01 15:58 | ED.FEMALEGU ---
HPI - Female Genitourinary General Chief complaint: Urogenital-Female Stated complaint: Urinary Problem Time Seen by Provider: 09/01/23 16:04 Source: patient Mode of arrival: ambulatory Limitations: no limitations History of Present Illness HPI Narrative: Yaquelin is a 48-year-old female patient presenting to clinic today with complaints of possible UTI times 3-4 days. Patient is reporting burning and frequency of urination. She denies any fever or chills. Related Data Home Medications Medication Instructions Recorded Confirmed rifaximin 550 mg tablet (Xifaxan) mg 09/01/23 Allergies Allergy/AdvReac Type Severity Reaction Status Date / Time latex Allergy Mild RASH-CONDOMS Verified 09/01/23 16:03 AND GLOVES clindamycin Allergy Hives Verified 09/01/23 16:03 gadobenic acid Allergy Hives Verified 09/01/23 16:03 [From contrast - MRI] iohexol Allergy Hives Verified 09/01/23 16:03 [From contrast - CT, X-RAY] lubiprostone [From Amitiza] Allergy Itching Verified 09/01/23 16:03 propoxyphene Allergy Other Verified 09/01/23 16:03 [From Darvocet-N 100] acetaminophen AdvReac Other Verified 09/01/23 16:03 amoxicillin AdvReac Chest Pain Verified 09/01/23 16:03 codeine AdvReac Nausea and Verified 09/01/23 16:03 Vomiting hydrocodone AdvReac Other Verified 09/01/23 16:03 ketorolac [From Toradol] AdvReac Palpitation Verified 09/01/23 16:03 s levofloxacin [From Levaquin] AdvReac Chest Pain Verified 09/01/23 16:03 nitrofurantoin AdvReac Chest Pain Verified 09/01/23 16:03 [From Macrobid] paroxetine [From Paxil] AdvReac Other Verified 09/01/23 16:03 Penicillins AdvReac Chest Pain Verified 09/01/23 16:03 Sulfa (Sulfonamide AdvReac Chest Pain Verified 09/01/23 16:03 Antibiotics) vancomycin AdvReac Chest Pain Verified 09/01/23 16:03 Review of Systems Review of Systems: Pertinent positives per HPI. Patient denies any fever, chills, rash, headache, visual changes, dizziness, cough, runny nose, sore throat, shortness of breath, chest pain, palpitations, nausea, vomiting, diarrhea, constipation, abdominal pain PMFSH Past Medical History Medical History Anxiety Bronchitis Constipation Depression Family history of malignant neoplasm of colon in father Genitourinary disorder Interstitial cystitis, urethral dilation GERD (gastroesophageal reflux disease) Interstitial cystitis Irritable bowel syndrome Irritable bowel syndrome with constipation Mitral valve prolapse Right hand fracture Urinary tract infection Vaginal delivery Surgical History Surgical History H/O hemorrhoidectomy H/O sinus surgery H/O tubal ligation H/O umbilical hernia repair History of facial surgery Nasal reconstruction History of hysterectomy History of orthopedic surgery Right knee, trigger release finger left hand History of tonsillectomy History of urinary tract surgery Family History Family History Grandparent Diabetes mellitus, Onset Age: 200 Cerebrovascular accident, Onset Age: 200 Father Family history of elevated blood lipids Carcinoma of colon Family history of coronary artery disease, Onset Age: 201 Patient's father is Grandparent Family history of malignant neoplasm Diabetes mellitus Cerebrovascular accident Hypertension Family history of cardiovascular disease Father Family history of congestive heart failure Patient's father is Hypertension Carcinoma of colon Family history of emphysema Family history of cardiovascular disease Sibling Hypertension Grandparent Diabetes mellitus Social History Social History Social History: no caffeine use Smoking packs per day: 1.5 Smoking cigarettes per day
== END 2023-09-01 16:20 | disposition home or self-care (01) ==
PROVIDERS: Emergency Provider Nurse Practitioner Family; PCP Nurse Practitioner Family
DX: N30.10 Interstitial cystitis (chronic) without hematuria (principal); Z87.891 Personal history of nicotine dependence; K21.9 Gastro-esophageal reflux disease without esophagitis; I34.1 Nonrheumatic mitral (valve) prolapse
CPT/HCPCS: 81003; 99212; G0463

== ENCOUNTER 2023-09-11 15:13 | Emergency (ER) | payer BC, SELFPAY ==
[2023-09-11 15:22] VITALS: BP 121/87; PULSE 69; RESP 18; TEMP 36.6; O2SAT 98
--- NOTE | 2023-09-11 15:32 | ED.FEMALEGU ---
HPI - Female Genitourinary General Chief complaint: Urogenital-Female Stated complaint: Urinary Problems Time Seen by Provider: 09/11/23 15:32 Source: patient, RN notes reviewed and old records reviewed Mode of arrival: ambulatory Limitations: no limitations History of Present Illness HPI Narrative: 48-year-old female with a history interstitial cystitis an IBS presents to the [facility] with complaints of urinary frequency and burning that just started. Patient denies any other symptoms. Has had multiple visits for the same complaint. Discussed with patient that she has been negative for months as well as multiple microbiology is being negative, stressed the importance of following up with her urologist Related Data Home Medications Medication Instructions Recorded Confirmed rifaximin 550 mg tablet (Xifaxan) mg 09/01/23 Allergies Allergy/AdvReac Type Severity Reaction Status Date / Time latex Allergy Mild RASH-CONDOMS Verified 09/01/23 16:03 AND GLOVES clindamycin Allergy Hives Verified 09/01/23 16:03 gadobenic acid Allergy Hives Verified 09/01/23 16:03 [From contrast - MRI] iohexol Allergy Hives Verified 09/01/23 16:03 [From contrast - CT, X-RAY] lubiprostone [From Amitiza] Allergy Itching Verified 09/01/23 16:03 propoxyphene Allergy Other Verified 09/01/23 16:03 [From Darvocet-N 100] acetaminophen AdvReac Other Verified 09/01/23 16:03 amoxicillin AdvReac Chest Pain Verified 09/01/23 16:03 codeine AdvReac Nausea and Verified 09/01/23 16:03 Vomiting hydrocodone AdvReac Other Verified 09/01/23 16:03 ketorolac [From Toradol] AdvReac Palpitation Verified 09/01/23 16:03 s levofloxacin [From Levaquin] AdvReac Chest Pain Verified 09/01/23 16:03 nitrofurantoin AdvReac Chest Pain Verified 09/01/23 16:03 [From Macrobid] paroxetine [From Paxil] AdvReac Other Verified 09/01/23 16:03 Penicillins AdvReac Chest Pain Verified 09/01/23 16:03 Sulfa (Sulfonamide AdvReac Chest Pain Verified 09/01/23 16:03 Antibiotics) vancomycin AdvReac Chest Pain Verified 09/01/23 16:03 Review of Systems Review of Systems: All systems reviewed & are unremarkable except as noted in HPI and below Constitutional: Constitutional: Reports no additional constitutional complaints Eyes: Eyes: Reports no additional eye complaints ENT: Reports system reviewed and no additional complaints, except as documented Cardiovascular: Cardiovascular: Reports no additional cardiovascular complaints, Denies chest pain and Denies dyspnea Respiratory: Respiratory: Reports no additional respiratory complaints, Denies chest congestion, Denies cough and Denies dyspnea Gastrointestinal: Gastrointestinal: Reports no additional gastrointestinal complaints, Denies abdominal pain, Denies nausea and Denies vomiting Genitourinary: Genitourinary: Reports as per HPI Musculoskeletal: Musculoskeletal: Reports no additional musculoskeletal complaints Integumentary/Breasts: Skin/Breast: Reports system reviewed and no additional complaints, except as docu Neurologic: Reports system reviewed and no additional complaints, except as documented Psychiatric: Psychiatric: Reports no additional psychiatric complaints Allergic/Immunologic: Allergic/Immunologic: Reports no additional allergic/immunologic complaints PMFSH Past Medical History Medical History Anxiety Bronchitis Constipation Depression Family history of malignant neoplasm of colon in father Genitourinary disorder Interstitial cystitis, urethral dilation GERD (gastroesophageal reflux disease) Interstitial cystitis Irritable bowel syndrome Irritable bowel syndrome with constipation Mitral valve prolapse Right hand fracture Urinary tract infection Vaginal delivery Surgical History Surgical History H/O hemorrhoidectomy H/O sinus surgery H/O tubal ligati
== END 2023-09-11 15:44 | disposition home or self-care (01) ==
PROVIDERS: Emergency Provider Nurse Practitioner; PCP Nurse Practitioner Family
DX: R35.0 Frequency of micturition (principal); Z87.891 Personal history of nicotine dependence; K21.9 Gastro-esophageal reflux disease without esophagitis; I34.1 Nonrheumatic mitral (valve) prolapse
CPT/HCPCS: 81003; 99212; G0463

== ENCOUNTER 2023-09-14 14:31 | Emergency (ER) | payer BC, SELFPAY ==
[2023-09-14 14:34] VITALS: BP 122/79; PULSE 85; RESP 16; TEMP 35.8; O2SAT 99
--- NOTE | 2023-09-14 14:54 | ED.FEMALEGU ---
HPI - Female Genitourinary General Chief complaint: Urogenital-Female Stated complaint: Urinary Problem Source: patient and RN notes reviewed Mode of arrival: ambulatory Limitations: no limitations History of Present Illness HPI Narrative: 48-year-old female with hx chronic interstitial cystitis and IBS-C presents for complaints of lower abdominal pressure and bladder pain for the past few days.? Patient has long history of interstitial cystitis and has been seen numerous times for similar symptoms.?Has f/u with urology and was told she has IC and nothing can be done due to the IBS. Patient was last seen here on 09/11, , and with similar symptoms and was given no antibiotics.?Patient denies fever, body aches, chills, nausea, vomiting, diarrhea, abdominal pain or flank pain. Denies concern for STD or . Related Data Home Medications Medication Instructions Recorded Confirmed rifaximin 550 mg tablet (Xifaxan) 550 mg PO DAILY 09/01/23 Allergies Allergy/AdvReac Type Severity Reaction Status Date / Time latex Allergy Mild RASH-CONDOMS Verified 09/14/23 14:35 AND GLOVES clindamycin Allergy Hives Verified 09/14/23 14:35 gadobenic acid Allergy Hives Verified 09/14/23 14:35 [From contrast - MRI] iohexol Allergy Hives Verified 09/14/23 14:35 [From contrast - CT, X-RAY] lubiprostone [From Amitiza] Allergy Itching Verified 09/14/23 14:35 propoxyphene Allergy Other Verified 09/14/23 14:35 [From Darvocet-N 100] acetaminophen AdvReac Other Verified 09/14/23 14:35 amoxicillin AdvReac Chest Pain Verified 09/14/23 14:35 codeine AdvReac Nausea and Verified 09/14/23 14:35 Vomiting hydrocodone AdvReac Other Verified 09/14/23 14:35 ketorolac [From Toradol] AdvReac Palpitation Verified 09/14/23 14:35 s levofloxacin [From Levaquin] AdvReac Chest Pain Verified 09/14/23 14:35 nitrofurantoin AdvReac Chest Pain Verified 09/14/23 14:35 [From Macrobid] paroxetine [From Paxil] AdvReac Other Verified 09/14/23 14:35 Penicillins AdvReac Chest Pain Verified 09/14/23 14:35 Sulfa (Sulfonamide AdvReac Chest Pain Verified 09/14/23 14:35 Antibiotics) vancomycin AdvReac Chest Pain Verified 09/14/23 14:35 Review of Systems Review of Systems: CONSTITUTIONAL: Denies body aches, fever, chills, or sweats. CARDIOVASCULAR: Denies chest pain, palpitations, or edema. RESPIRATORY: Denies cough or dyspnea. GASTROINTESTINAL: Denies abdominal pain, nausea, vomiting, or diarrhea. GENITOURINARY: Reports dysuria, frequency, denies hematuria, flank pain SKIN: Denies rash, itching, or wounds. MUSCULOSKELETAL: Denies back pain or myalgia. [facility] Past Medical History Medical History Anxiety Bronchitis Constipation Depression Family history of malignant neoplasm of colon in father Genitourinary disorder Interstitial cystitis, urethral dilation GERD (gastroesophageal reflux disease) Interstitial cystitis Irritable bowel syndrome Irritable bowel syndrome with constipation Mitral valve prolapse Right hand fracture Urinary tract infection Vaginal delivery Surgical History Surgical History H/O hemorrhoidectomy H/O sinus surgery H/O tubal ligation H/O umbilical hernia repair History of facial surgery Nasal reconstruction History of hysterectomy History of orthopedic surgery Right knee, trigger release finger left hand History of tonsillectomy History of urinary tract surgery Family History Family History Grandparent Diabetes mellitus, Onset Age: 200 Cerebrovascular accident, Onset Age: 200 Father Family history of elevated blood lipids Carcinoma of colon Family history of coronary artery disease, Onset Age: 201 Patient's father is Grandparent Family history of malignant neoplasm Diabet
== END 2023-09-14 15:05 | disposition home or self-care (01) ==
PROVIDERS: Emergency Provider Nurse Practitioner Family; PCP Nurse Practitioner Family
DX: N30.10 Interstitial cystitis (chronic) without hematuria (principal); Z87.891 Personal history of nicotine dependence; K21.9 Gastro-esophageal reflux disease without esophagitis; I34.1 Nonrheumatic mitral (valve) prolapse
CPT/HCPCS: 81003; 99212; G0463

== ENCOUNTER 2023-09-25 09:52 | Emergency (ER) | payer BC, SELFPAY ==
[2023-09-25 09:58] VITALS: BP 128/83; PULSE 65; RESP 20; TEMP 36.6; O2SAT 100
--- NOTE | 2023-09-25 10:09 | ED.FEMALEGU ---
HPI - Female Genitourinary General Chief complaint: Urogenital-Female Stated complaint: Ears/check urine Time Seen by Provider: 09/25/23 10:10 Source: patient Mode of arrival: ambulatory Limitations: no limitations History of Present Illness HPI Narrative: Yaquelin is a 48-year-old female patient presenting to the clinic today with complaints of possible UTI and ear infection. She reports she is having some pain in her back and burning with urination. Also reports right ear pressure/pain and nasal congestion. States the ear pain started yesterday. Related Data Allergies Allergy/AdvReac Type Severity Reaction Status Date / Time latex Allergy Mild RASH-CONDOMS Verified 09/14/23 14:35 AND GLOVES clindamycin Allergy Hives Verified 09/14/23 14:35 gadobenic acid Allergy Hives Verified 09/14/23 14:35 [From contrast - MRI] iohexol Allergy Hives Verified 09/14/23 14:35 [From contrast - CT, X-RAY] lubiprostone [From Amitiza] Allergy Itching Verified 09/14/23 14:35 propoxyphene Allergy Other Verified 09/14/23 14:35 [From Darvocet-N 100] acetaminophen AdvReac Other Verified 09/14/23 14:35 amoxicillin AdvReac Chest Pain Verified 09/14/23 14:35 codeine AdvReac Nausea and Verified 09/14/23 14:35 Vomiting hydrocodone AdvReac Other Verified 09/14/23 14:35 ketorolac [From Toradol] AdvReac Palpitation Verified 09/14/23 14:35 s levofloxacin [From Levaquin] AdvReac Chest Pain Verified 09/14/23 14:35 nitrofurantoin AdvReac Chest Pain Verified 09/14/23 14:35 [From Macrobid] paroxetine [From Paxil] AdvReac Other Verified 09/14/23 14:35 Penicillins AdvReac Chest Pain Verified 09/14/23 14:35 Sulfa (Sulfonamide AdvReac Chest Pain Verified 09/14/23 14:35 Antibiotics) vancomycin AdvReac Chest Pain Verified 09/14/23 14:35 Review of Systems Review of Systems: Pertinent positives per HPI. Patient denies any fever, chills, rash, headache, visual changes, dizziness, sore throat, shortness of breath, chest pain, palpitations, nausea, vomiting, diarrhea, constipation, abdominal pain, or any urinary issues. [facility] Past Medical History Medical History Anxiety Bronchitis Constipation Depression Family history of malignant neoplasm of colon in father Genitourinary disorder Interstitial cystitis, urethral dilation GERD (gastroesophageal reflux disease) Interstitial cystitis Irritable bowel syndrome Irritable bowel syndrome with constipation Mitral valve prolapse Right hand fracture Urinary tract infection Vaginal delivery Surgical History Surgical History H/O hemorrhoidectomy H/O sinus surgery H/O tubal ligation H/O umbilical hernia repair History of facial surgery Nasal reconstruction History of hysterectomy History of orthopedic surgery Right knee, trigger release finger left hand History of tonsillectomy History of urinary tract surgery Family History Family History Grandparent Diabetes mellitus, Onset Age: 200 Cerebrovascular accident, Onset Age: 200 Father Family history of elevated blood lipids Carcinoma of colon Family history of coronary artery disease, Onset Age: 201 Patient's father is Grandparent Family history of malignant neoplasm Diabetes mellitus Cerebrovascular accident Hypertension Family history of cardiovascular disease Father Family history of congestive heart failure Patient's father is Hypertension Carcinoma of colon Family history of emphysema Family history of cardiovascular disease Sibling Hypertension Grandparent Diabetes mellitus Social History Social History Social History: no caffeine use Smoking packs per day: 1.5 Smoking cigarettes per day: 30.0 Years smo
== END 2023-09-25 10:31 | disposition home or self-care (01) ==
PROVIDERS: Emergency Provider Nurse Practitioner Family; PCP Nurse Practitioner Family
DX: R30.0 Dysuria (principal); H69.91 Unspecified Eustachian tube disorder, right ear; H92.01 Otalgia, right ear; Z87.891 Personal history of nicotine dependence; K21.9 Gastro-esophageal reflux disease without esophagitis; I34.1 Nonrheumatic mitral (valve) prolapse
CPT/HCPCS: 81003; 99212; G0463

== ENCOUNTER 2023-10-07 08:16 | Emergency (ER) | payer BC, SELFPAY ==
[2023-10-07 08:20] VITALS: BP 116/80; PULSE 70; RESP 20; TEMP 36.4; O2SAT 100
--- NOTE | 2023-10-07 08:44 | ED.GENADULT ---
HPI - General Adult General Chief complaint: Urogenital-Female Stated complaint: Urinary Problem Source: patient Mode of arrival: ambulatory Limitations: no limitations History of Present Illness HPI narrative: Patient presents for evaluation of urinary symptoms for last 4 days. Symptoms include urinary frequency, bladder spasms, and mild dysuria. She has a history of interstitial cystitis. She states it can be difficult for her to distinguish between interstitial cystitis and UTI. No fever, chills, nausea, vomiting, low back pain. Related Data Allergies Allergy/AdvReac Type Severity Reaction Status Date / Time latex Allergy Mild RASH-CONDOMS Verified 09/14/23 14:35 AND GLOVES clindamycin Allergy Hives Verified 09/14/23 14:35 gadobenic acid Allergy Hives Verified 09/14/23 14:35 [From contrast - MRI] iohexol Allergy Hives Verified 09/14/23 14:35 [From contrast - CT, X-RAY] lubiprostone [From Amitiza] Allergy Itching Verified 09/14/23 14:35 propoxyphene Allergy Other Verified 09/14/23 14:35 [From Darvocet-N 100] acetaminophen AdvReac Other Verified 09/14/23 14:35 amoxicillin AdvReac Chest Pain Verified 09/14/23 14:35 codeine AdvReac Nausea and Verified 09/14/23 14:35 Vomiting hydrocodone AdvReac Other Verified 09/14/23 14:35 ketorolac [From Toradol] AdvReac Palpitation Verified 09/14/23 14:35 s levofloxacin [From Levaquin] AdvReac Chest Pain Verified 09/14/23 14:35 nitrofurantoin AdvReac Chest Pain Verified 09/14/23 14:35 [From Macrobid] paroxetine [From Paxil] AdvReac Other Verified 09/14/23 14:35 Penicillins AdvReac Chest Pain Verified 09/14/23 14:35 Sulfa (Sulfonamide AdvReac Chest Pain Verified 09/14/23 14:35 Antibiotics) vancomycin AdvReac Chest Pain Verified 09/14/23 14:35 Review of Systems Review of Systems: CONSTITUTIONAL: Denies fever, chills, or sweats. EYES: Denies visual changes, redness, or discharge. ENT: Denies rhinorrhea, congestion, sore throat, or otalgia. CARDIOVASCULAR: Denies chest pain, palpitations, or edema. RESPIRATORY: Denies cough or dyspnea. GASTROINTESTINAL: Denies abdominal pain, nausea, vomiting, or diarrhea. GENITOURINARY: Reports urinary frequency, bladder spasms, and mild dysuria SKIN: Denies rash or itching. MUSCULOSKELETAL: Denies back pain, joint pain, or myalgia. NEUROLOGIC: Denies headache, numbness, dizziness, or weakness. PSYCHIATRIC: Denies anxiety or depression. [facility] Past Medical History Medical History Anxiety Bronchitis Constipation Depression Family history of malignant neoplasm of colon in father Genitourinary disorder Interstitial cystitis, urethral dilation GERD (gastroesophageal reflux disease) Interstitial cystitis Irritable bowel syndrome Irritable bowel syndrome with constipation Mitral valve prolapse Right hand fracture Urinary tract infection Vaginal delivery Surgical History Surgical History H/O hemorrhoidectomy H/O sinus surgery H/O tubal ligation H/O umbilical hernia repair History of facial surgery Nasal reconstruction History of hysterectomy History of orthopedic surgery Right knee, trigger release finger left hand History of tonsillectomy History of urinary tract surgery Family History Family History Grandparent Diabetes mellitus, Onset Age: 200 Cerebrovascular accident, Onset Age: 200 Father Family history of elevated blood lipids Carcinoma of colon Family history of coronary artery disease, Onset Age: 201 Patient's father is Grandparent Family history of malignant neoplasm Diabetes mellitus Cerebrovascular accident Hypertension Family history of cardiovascular disease Father Family history of congestive heart failure Patient's father is Hypertens
== END 2023-10-07 08:47 | disposition home or self-care (01) ==
PROVIDERS: Emergency Provider Nurse Practitioner; PCP Nurse Practitioner Family
DX: N30.10 Interstitial cystitis (chronic) without hematuria (principal); Z87.891 Personal history of nicotine dependence
CPT/HCPCS: 81003; 99212; G0463

== ENCOUNTER 2023-10-14 12:59 | Emergency (ER) | payer BC, SELFPAY ==
[2023-10-14 13:17] VITALS: BP 141/89; PULSE 77; RESP 16; TEMP 36.9; O2SAT 100
--- NOTE | 2023-10-14 13:35 | ED.FEMALEGU ---
HPI - Female Genitourinary General Chief complaint: Urogenital-Female Stated complaint: BLADDER PROBLEMS Source: patient and RN notes reviewed Mode of arrival: ambulatory Limitations: no limitations History of Present Illness HPI Narrative: 48-year-old female with hx chronic interstitial cystitis and IBS-C presents for complaints of lower abdominal pressure and bladder pain for the past few days.? Patient has long history of interstitial cystitis and has been seen numerous times for similar symptoms.?Has f/u with urology and was told she has IC and nothing can be done due to the IBS. ?Patient denies fever, body aches, chills, nausea, vomiting, diarrhea, abdominal pain or flank pain. Denies concern for STD or . Related Data Home Medications Medication Instructions Recorded Confirmed metronidazole 0.75 % (37.5 mg/5 1 appful vaginal DIRECTED 10/14/23 10/14/23 gram) vaginal gel rifaximin 550 mg tablet (Xifaxan) 550 mg PO DAILY 10/14/23 10/14/23 Allergies Allergy/AdvReac Type Severity Reaction Status Date / Time latex Allergy Mild RASH-CONDOMS Verified 10/14/23 13:10 AND GLOVES clindamycin Allergy Hives Verified 10/14/23 13:10 gadobenic acid Allergy Hives Verified 10/14/23 13:10 [From contrast - MRI] iohexol Allergy Hives Verified 10/14/23 13:10 [From contrast - CT, X-RAY] lubiprostone [From Amitiza] Allergy Itching Verified 10/14/23 13:10 propoxyphene Allergy Other Verified 10/14/23 13:10 [From Darvocet-N 100] acetaminophen AdvReac Other Verified 10/14/23 13:10 amoxicillin AdvReac Chest Pain Verified 10/14/23 13:10 codeine AdvReac Nausea and Verified 10/14/23 13:10 Vomiting hydrocodone AdvReac Other Verified 10/14/23 13:10 ketorolac [From Toradol] AdvReac Palpitation Verified 10/14/23 13:10 s levofloxacin [From Levaquin] AdvReac Chest Pain Verified 10/14/23 13:10 nitrofurantoin AdvReac Chest Pain Verified 10/14/23 13:10 [From Macrobid] paroxetine [From Paxil] AdvReac Other Verified 10/14/23 13:10 Penicillins AdvReac Chest Pain Verified 10/14/23 13:10 Sulfa (Sulfonamide AdvReac Chest Pain Verified 10/14/23 13:10 Antibiotics) vancomycin AdvReac Chest Pain Verified 10/14/23 13:10 Review of Systems Review of Systems: CONSTITUTIONAL: Denies body aches, fever, chills, or sweats. CARDIOVASCULAR: Denies chest pain, palpitations, or edema. RESPIRATORY: Denies cough or dyspnea. GASTROINTESTINAL: Denies abdominal pain, nausea, vomiting, or diarrhea. GENITOURINARY: Reports dysuria, frequency, urgency, denies hematuria, flank pain SKIN: Denies rash, itching, or wounds. MUSCULOSKELETAL: Denies back pain or myalgia. [facility] Past Medical History Medical History Anxiety Bronchitis Constipation Depression Family history of malignant neoplasm of colon in father Genitourinary disorder Interstitial cystitis, urethral dilation GERD (gastroesophageal reflux disease) Interstitial cystitis Irritable bowel syndrome Irritable bowel syndrome with constipation Mitral valve prolapse Right hand fracture Urinary tract infection Vaginal delivery Surgical History Surgical History H/O hemorrhoidectomy H/O sinus surgery H/O tubal ligation H/O umbilical hernia repair History of facial surgery Nasal reconstruction History of hysterectomy History of orthopedic surgery Right knee, trigger release finger left hand History of tonsillectomy History of urinary tract surgery Family History Family History Grandparent Diabetes mellitus, Onset Age: 200 Cerebrovascular accident, Onset Age: 200 Father Family history of elevated blood lipids Carcinoma of colon Family history of coronary artery disease, Onset Age: 201 Patient's father is Grandparent Family history of malignant
== END 2023-10-14 13:45 | disposition home or self-care (01) ==
PROVIDERS: Emergency Provider Nurse Practitioner Family; PCP Nurse Practitioner Family
DX: N30.10 Interstitial cystitis (chronic) without hematuria (principal); Z87.891 Personal history of nicotine dependence; K21.9 Gastro-esophageal reflux disease without esophagitis; I34.1 Nonrheumatic mitral (valve) prolapse
CPT/HCPCS: 81003; 99212; G0463

== ENCOUNTER 2023-10-19 14:32 | Emergency (ER) | payer BC, SELFPAY ==
[2023-10-19 14:40] VITALS: BP 111/82; PULSE 73; RESP 16; TEMP 36.9; O2SAT 100
--- NOTE | 2023-10-19 14:57 | ED.FEMALEGU ---
HPI - Female Genitourinary General Chief complaint: Urogenital-Female Stated complaint: BLADDER PAIN Time Seen by Provider: 10/19/23 15:01 Source: patient, RN notes reviewed and old records reviewed Mode of arrival: ambulatory Limitations: no limitations History of Present Illness HPI Narrative: 48 year old female who presents to [facility] care with complaints of having some urinary bladder spasms, urinary frequency, urgency and some dysuria. 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 She reports since she had removal of hernia mesh and repair she has never been able to maintain her weight. MD elicited complaint: UTI Pertinent past history: interstitial cystits Onset (ago): day(s) (1) Location of symptoms: other (lower abdomen) Severity scale (1-10): 6 Quality of pain: other (aching, spasms) Vaginal discharge: none Related Data Home Medications Medication Instructions Recorded Confirmed metronidazole 0.75 % (37.5 mg/5 1 appful vaginal DIRECTED 10/14/23 10/19/23 gram) vaginal gel rifaximin 550 mg tablet (Xifaxan) 550 mg PO TID 10/14/23 10/19/23 Allergies Allergy/AdvReac Type Severity Reaction Status Date / Time amoxicillin AdvReac Intermediate Chest Pain Verified 10/19/23 14:36 codeine AdvReac Intermediate Nausea and Verified 10/19/23 14:36 Vomiting ketorolac [From Toradol] AdvReac Intermediate Palpitation Verified 10/19/23 14:36 s levofloxacin [From Levaquin] AdvReac Intermediate Chest Pain Verified 10/19/23 14:36 nitrofurantoin AdvReac Intermediate Chest Pain Verified 10/19/23 14:36 [From Macrobid] Penicillins AdvReac Intermediate Chest Pain Verified 10/19/23 14:36 Sulfa (Sulfonamide AdvReac Intermediate Chest Pain Verified 10/19/23 14:36 Antibiotics) vancomycin AdvReac Intermediate Chest Pain Verified 10/19/23 14:36 acetaminophen AdvReac Mild Hives Verified 10/19/23 14:36 clindamycin AdvReac Mild Hives Verified 10/19/23 14:36 gadobenic acid AdvReac Mild Hives Verified 10/19/23 14:36 [From contrast - MRI] hydrocodone AdvReac Mild Hives Verified 10/19/23 14:36 iohexol AdvReac Mild Hives Verified 10/19/23 14:36 [From contrast - CT, X-RAY] latex AdvReac Mild RASH-CONDOMS Verified 10/19/23 14:36 AND GLOVES lubiprostone [From Amitiza] AdvReac Mild Itching Verified 10/19/23 14:36 paroxetine [From Paxil] AdvReac Mild Hives Verified 10/19/23 14:36 propoxyphene AdvReac Mild Itching Verified 10/19/23 14:36 [From Darvocet-N 100] Review of Systems Review of Systems: CONSTITUTIONAL: Denies fever, chills, or sweats. CARDIOVASCULAR: Denies chest pain, palpitations, or edema. RESPIRATORY: Denies cough or dyspnea. GASTROINTESTINAL: Denies abdominal pain, nausea, vomiting, or diarrhea. GENITOURINARY: Reports dysuria, frequency, urgency. Denies flank pain or hematuria.lower abdomen aching and spasms voiced SKIN: Denies rash or itching. MUSCULOSKELETAL: Denies back pain or myalgia. Denies CVA tenderness NEUROLOGIC: Denies headache All systems reviewed & are unremarkable except as noted in HPI and below PMFSH Past Medical History Medical History Anxiety Bronchitis Constipation Depression Family history of malignant neoplasm of colon in father Genitourinary disorder Interstitial cystitis, urethral dilation GERD (gastroesophageal reflux disease) Interstitial cystitis Irritable bowel syndrome Irritable bowel syndrome with constipation Mitral valve prolapse Right hand fracture Urinary tract infection Vaginal delivery Surgical History Surgical History (Reviewed 10/21/23 @ 14:30 by Yaquelin Ortega NP
== END 2023-10-19 15:13 | disposition home or self-care (01) ==
PROVIDERS: Emergency Provider Registered Nurse; PCP Nurse Practitioner Family
DX: N32.89 Other specified disorders of bladder (principal); Z87.891 Personal history of nicotine dependence; K21.9 Gastro-esophageal reflux disease without esophagitis; I34.1 Nonrheumatic mitral (valve) prolapse
CPT/HCPCS: 81003; 99212; G0463

== ENCOUNTER 2023-10-23 13:01 | Emergency (ER) | payer BC, SELFPAY ==
--- NOTE | 2023-10-23 13:02 | ED.FEMALEGU ---
HPI - Female Genitourinary General Chief complaint: Urogenital-Female Stated complaint: urine check Source: patient and RN notes reviewed Mode of arrival: ambulatory Limitations: no limitations History of Present Illness HPI Narrative: Patient is a 48-year-old female who presents to the [facility] with bladder spasms with past 3 days. Patient reports history of interstitial cystitis and IBS. She states that she is on a new medication for IBS which has allowed her to put on weight. However, she has also changed her diet. She is unsure whether she is having bladder spasms or if her discomfort is related to the IBS. She states that the new medication interacts with dairy and she has been having cheese on her salads as well as Ranch. She denies nausea, vomiting, recent fever. Denies dysuria, urinary frequency, hematuria, flank pain. Related Data Home Medications Medication Instructions Recorded Confirmed rifaximin 550 mg tablet (Xifaxan) 550 mg PO TID 10/23/23 10/23/23 Allergies Allergy/AdvReac Type Severity Reaction Status Date / Time amoxicillin AdvReac Intermediate Chest Pain Verified 10/23/23 13:13 codeine AdvReac Intermediate Nausea and Verified 10/23/23 13:13 Vomiting ketorolac [From Toradol] AdvReac Intermediate Palpitation Verified 10/23/23 13:13 s levofloxacin [From Levaquin] AdvReac Intermediate Chest Pain Verified 10/23/23 13:13 nitrofurantoin AdvReac Intermediate Chest Pain Verified 10/23/23 13:13 [From Macrobid] Penicillins AdvReac Intermediate Chest Pain Verified 10/23/23 13:13 Sulfa (Sulfonamide AdvReac Intermediate Chest Pain Verified 10/23/23 13:13 Antibiotics) vancomycin AdvReac Intermediate Chest Pain Verified 10/23/23 13:13 acetaminophen AdvReac Mild Hives Verified 10/23/23 13:13 clindamycin AdvReac Mild Hives Verified 10/23/23 13:13 gadobenic acid AdvReac Mild Hives Verified 10/23/23 13:13 [From contrast - MRI] hydrocodone AdvReac Mild Hives Verified 10/23/23 13:13 iohexol AdvReac Mild Hives Verified 10/23/23 13:13 [From contrast - CT, X-RAY] latex AdvReac Mild RASH-CONDOMS Verified 10/23/23 13:13 AND GLOVES lubiprostone [From Amitiza] AdvReac Mild Itching Verified 10/23/23 13:13 paroxetine [From Paxil] AdvReac Mild Hives Verified 10/23/23 13:13 propoxyphene AdvReac Mild Itching Verified 10/23/23 13:13 [From Darvocet-N 100] Review of Systems Review of Systems: CONSTITUTIONAL: Denies fever, chills, or sweats. EYES: Denies visual changes, redness, or discharge. ENT: Denies otalgia and sore throat CARDIOVASCULAR: Denies chest pain, palpitations, or edema. RESPIRATORY: Denies cough or dyspnea. GASTROINTESTINAL: Denies abdominal pain, nausea, vomiting, or diarrhea. GENITOURINARY: Denies dysuria or hematuria. Reports bladder spasms. SKIN: Denies rash or itching. MUSCULOSKELETAL: Denies back pain, joint pain, or myalgia. NEUROLOGIC: Denies headache, numbness, or weakness. Pertinent positives per HPI. [facility] Past Medical History Medical History Anxiety Bronchitis Constipation Depression Family history of malignant neoplasm of colon in father Genitourinary disorder Interstitial cystitis, urethral dilation GERD (gastroesophageal reflux disease) Interstitial cystitis Irritable bowel syndrome Irritable bowel syndrome with constipation Mitral valve prolapse Right hand fracture Urinary tract infection Vaginal delivery Surgical History Surgical History H/O hemorrhoidectomy H/O sinus surgery H/O tubal ligation H/O umbilical hernia repair History of facial surgery Nasal reconstruction History of hysterectomy History of orthopedic surgery Right knee, trigger release finger left hand History of tonsillectomy History of urinary tract surgery Family History Family History Grandparent De
[2023-10-23 13:06] VITALS: BP 121/77; PULSE 76; RESP 20; TEMP 36.9; O2SAT 97
== END 2023-10-23 13:20 | disposition home or self-care (01) ==
PROVIDERS: Emergency Provider Nurse Practitioner
DX: N30.10 Interstitial cystitis (chronic) without hematuria (principal); Z87.891 Personal history of nicotine dependence; K21.9 Gastro-esophageal reflux disease without esophagitis; I34.1 Nonrheumatic mitral (valve) prolapse
CPT/HCPCS: 81003; 99212; G0463

== ENCOUNTER 2023-10-27 10:19 | Emergency (ER) | payer BC, SELFPAY ==
--- NOTE | 2023-10-27 10:21 | ED.GENADULT ---
HPI - General Adult General Chief complaint: Unspecified Stated complaint: Sinus, Cough, Urinary Problems Time Seen by Provider: 10/27/23 10:29 Source: patient, RN notes reviewed and old records reviewed Mode of arrival: ambulatory Limitations: no limitations History of Present Illness HPI narrative: 48-year-old female presents to the [facility] with the usual complaint of urinary symptoms. Was seen 3 days ago as well as 6 days ago. Multiple visits over the last several months Upper respiratory symptoms started 2 days ago, no treatment prior to arrival Onset (ago): day(s) (2) Treatments prior to arrival: none Related Data Home Medications Medication Instructions Recorded Confirmed rifaximin 550 mg tablet (Xifaxan) 550 mg PO TID 10/23/23 10/23/23 Allergies Allergy/AdvReac Type Severity Reaction Status Date / Time amoxicillin AdvReac Intermediate Chest Pain Verified 10/23/23 13:13 codeine AdvReac Intermediate Nausea and Verified 10/23/23 13:13 Vomiting ketorolac [From Toradol] AdvReac Intermediate Palpitation Verified 10/23/23 13:13 s levofloxacin [From Levaquin] AdvReac Intermediate Chest Pain Verified 10/23/23 13:13 nitrofurantoin AdvReac Intermediate Chest Pain Verified 10/23/23 13:13 [From Macrobid] Penicillins AdvReac Intermediate Chest Pain Verified 10/23/23 13:13 Sulfa (Sulfonamide AdvReac Intermediate Chest Pain Verified 10/23/23 13:13 Antibiotics) vancomycin AdvReac Intermediate Chest Pain Verified 10/23/23 13:13 acetaminophen AdvReac Mild Hives Verified 10/23/23 13:13 clindamycin AdvReac Mild Hives Verified 10/23/23 13:13 gadobenic acid AdvReac Mild Hives Verified 10/23/23 13:13 [From contrast - MRI] hydrocodone AdvReac Mild Hives Verified 10/23/23 13:13 iohexol AdvReac Mild Hives Verified 10/23/23 13:13 [From contrast - CT, X-RAY] latex AdvReac Mild RASH-CONDOMS Verified 10/23/23 13:13 AND GLOVES lubiprostone [From Amitiza] AdvReac Mild Itching Verified 10/23/23 13:13 paroxetine [From Paxil] AdvReac Mild Hives Verified 10/23/23 13:13 propoxyphene AdvReac Mild Itching Verified 10/23/23 13:13 [From [facility]] Review of Systems Review of Systems: All systems reviewed & are unremarkable except as noted in HPI and below Constitutional: Constitutional: Reports no additional constitutional complaints Eyes: Eyes: Reports no additional eye complaints ENT: Reports as per HPI and Reports nasal congestion Cardiovascular: Cardiovascular: Reports no additional cardiovascular complaints, Denies chest pain and Denies dyspnea Respiratory: Respiratory: Reports no additional respiratory complaints, Denies chest congestion, Denies cough and Denies dyspnea Gastrointestinal: Gastrointestinal: Reports no additional gastrointestinal complaints, Denies abdominal pain, Denies nausea and Denies vomiting Genitourinary: Genitourinary: Reports as per HPI and Reports dysuria Musculoskeletal: Musculoskeletal: Reports no additional musculoskeletal complaints Integumentary/Breasts: Skin/Breast: Reports system reviewed and no additional complaints, except as docu Neurologic: Reports system reviewed and no additional complaints, except as documented Psychiatric: Psychiatric: Reports no additional psychiatric complaints Allergic/Immunologic: Allergic/Immunologic: Reports no additional allergic/immunologic complaints [facility] Past Medical History Medical History Anxiety Bronchitis Constipation Depression Family history of malignant neoplasm of colon in father Genitourinary disorder Interstitial cystitis, urethral dilation GERD (gastroesophageal reflux disease) Interstitial cystitis Irritable bowel syndrome Irritable bowel syndrome with constipation Mitral valve prolapse Right hand fracture Urinary tract infection Vaginal delivery Surgical History Surgical History H/O hemor
[2023-10-27 10:24] VITALS: BP 123/72; PULSE 62; RESP 20; TEMP 36.6; O2SAT 99
== END 2023-10-27 10:54 | disposition home or self-care (01) ==
PROVIDERS: Emergency Provider Nurse Practitioner; PCP Nurse Practitioner Family
DX: J06.9 Acute upper respiratory infection, unspecified (principal); K58.9 Irritable bowel syndrome, unspecified; N30.10 Interstitial cystitis (chronic) without hematuria; Z87.891 Personal history of nicotine dependence; K21.9 Gastro-esophageal reflux disease without esophagitis; I34.1 Nonrheumatic mitral (valve) prolapse
CPT/HCPCS: 81003; 99212; G0463

== ENCOUNTER 2023-11-15 11:40 | Emergency (ER) | payer BC, SELFPAY ==
[2023-11-15 11:51] VITALS: BP 118/81; PULSE 62; RESP 18; TEMP 36.8; O2SAT 100
--- NOTE | 2023-11-15 12:24 | ED.GENADULT ---
HPI - General Adult General Chief complaint: Upper Respiratory Infection Stated complaint: Urinary Problem/Chest Congestion/Cough Source: patient, RN notes reviewed and old records reviewed Mode of arrival: ambulatory Limitations: no limitations History of Present Illness HPI narrative: 48-year-old female presents to [facility] with complaints of cough, congestion for over 2 weeks. Patient is not taking anything for symptoms. Patient also complaining urinary frequency, burning with urination. Patient has history of interstitial cystitis. MD complaint: Cough Onset (ago): week(s) (2) Related Data Allergies Allergy/AdvReac Type Severity Reaction Status Date / Time amoxicillin AdvReac Intermediate Chest Pain Verified 11/15/23 11:48 codeine AdvReac Intermediate Nausea and Verified 11/15/23 11:48 Vomiting ketorolac [From Toradol] AdvReac Intermediate Palpitation Verified 11/15/23 11:48 s levofloxacin [From Levaquin] AdvReac Intermediate Chest Pain Verified 11/15/23 11:48 nitrofurantoin AdvReac Intermediate Chest Pain Verified 11/15/23 11:48 [From Macrobid] Penicillins AdvReac Intermediate Chest Pain Verified 11/15/23 11:48 Sulfa (Sulfonamide AdvReac Intermediate Chest Pain Verified 11/15/23 11:48 Antibiotics) vancomycin AdvReac Intermediate Chest Pain Verified 11/15/23 11:48 acetaminophen AdvReac Mild Hives Verified 11/15/23 11:48 clindamycin AdvReac Mild Hives Verified 11/15/23 11:48 gadobenic acid AdvReac Mild Hives Verified 11/15/23 11:48 [From contrast - MRI] hydrocodone AdvReac Mild Hives Verified 11/15/23 11:48 iohexol AdvReac Mild Hives Verified 11/15/23 11:48 [From contrast - CT, X-RAY] latex AdvReac Mild RASH-CONDOMS Verified 11/15/23 11:48 AND GLOVES lubiprostone [From Amitiza] AdvReac Mild Itching Verified 11/15/23 11:48 paroxetine [From Paxil] AdvReac Mild Hives Verified 11/15/23 11:48 propoxyphene AdvReac Mild Itching Verified 11/15/23 11:48 [From Darvocet-N 100] Review of Systems Constitutional: Constitutional: Reports no additional constitutional complaints, Denies body ache(s), Denies chills, Denies fatigue, Denies fever(s) and Denies headache(s) Eyes: Eyes: Reports no additional eye complaints and Denies blurry vision ENT: Reports system reviewed and no additional complaints, except as documented, Denies vertigo, Denies dizziness, Denies ear discharge, Denies otalgia, Denies facial pain, Denies headache(s), Reports nasal congestion, Denies nasal discharge, Denies sinus pain, Denies sinus pressure and Denies sore throat Cardiovascular: Cardiovascular: Reports no additional cardiovascular complaints, Denies chest pain, Denies chest pain at rest, Denies rapid heart rate and Denies dyspnea Respiratory: Respiratory: Reports no additional respiratory complaints, Denies chest congestion, Reports cough, Denies pain on inspiration, Denies pain with cough and Denies dyspnea Gastrointestinal: Gastrointestinal: Denies abdominal pain, Denies diarrhea, Denies nausea and Denies vomiting Genitourinary: Genitourinary: Reports nocturia and Reports dysuria Integumentary/Breasts: Skin/Breast: Denies rash Neurologic: Reports system reviewed and no additional complaints, except as documented, Denies vertigo, Denies dizziness and Denies headache(s) Endocrine: Endocrine: Denies fatigue PMFSH Past Medical History Medical History Anxiety Bronchitis Constipation Depression Family history of malignant neoplasm of colon in father Genitourinary disorder Interstitial cystitis, urethral dilation GERD (gastroesophageal reflux disease) Interstitial cystitis Irritable bowel syndrome Irritable bowel syndrome with constipation Mitral valve prolapse Right hand fracture Urinary tract infection Vaginal delivery Surgical History Surgical History H/O hemorrhoidectomy H/O sinus surgery H/O
== END 2023-11-15 12:27 | disposition home or self-care (01) ==
PROVIDERS: Emergency Provider Registered Nurse; PCP Nurse Practitioner Family
DX: J30.9 Allergic rhinitis, unspecified (principal); R30.0 Dysuria; Z87.891 Personal history of nicotine dependence; K21.9 Gastro-esophageal reflux disease without esophagitis; I34.1 Nonrheumatic mitral (valve) prolapse
CPT/HCPCS: 81003; 99213; G0463

== ENCOUNTER 2023-11-18 11:28 | Emergency (ER) | payer BC, SELFPAY ==
[2023-11-18 11:37] VITALS: BP 114/88; PULSE 68; RESP 14; TEMP 36.1; O2SAT 100
--- NOTE | 2023-11-18 12:04 | ED.FEMALEGU ---
HPI - Female Genitourinary General Chief complaint: Urogenital-Female Stated complaint: Urinary Problems Time Seen by Provider: 11/18/23 12:16 Source: patient and RN notes reviewed Mode of arrival: ambulatory Limitations: no limitations History of Present Illness HPI Narrative: 48-year-old female presents concern for urine frequency and urgency. Reports history of interstitial cystitis. She denies back ache, stomach ache, fever, chills, sweats. MD elicited complaint: UTI Related Data Allergies Allergy/AdvReac Type Severity Reaction Status Date / Time amoxicillin AdvReac Intermediate Chest Pain Verified 11/15/23 11:48 codeine AdvReac Intermediate Nausea and Verified 11/15/23 11:48 Vomiting ketorolac [From Toradol] AdvReac Intermediate Palpitation Verified 11/15/23 11:48 s levofloxacin [From Levaquin] AdvReac Intermediate Chest Pain Verified 11/15/23 11:48 nitrofurantoin AdvReac Intermediate Chest Pain Verified 11/15/23 11:48 [From Macrobid] Penicillins AdvReac Intermediate Chest Pain Verified 11/15/23 11:48 Sulfa (Sulfonamide AdvReac Intermediate Chest Pain Verified 11/15/23 11:48 Antibiotics) vancomycin AdvReac Intermediate Chest Pain Verified 11/15/23 11:48 acetaminophen AdvReac Mild Hives Verified 11/15/23 11:48 clindamycin AdvReac Mild Hives Verified 11/15/23 11:48 gadobenic acid AdvReac Mild Hives Verified 11/15/23 11:48 [From contrast - MRI] hydrocodone AdvReac Mild Hives Verified 11/15/23 11:48 iohexol AdvReac Mild Hives Verified 11/15/23 11:48 [From contrast - CT, X-RAY] latex AdvReac Mild RASH-CONDOMS Verified 11/15/23 11:48 AND GLOVES lubiprostone [From Amitiza] AdvReac Mild Itching Verified 11/15/23 11:48 paroxetine [From Paxil] AdvReac Mild Hives Verified 11/15/23 11:48 propoxyphene AdvReac Mild Itching Verified 11/15/23 11:48 [From Darvocet-N 100] Review of Systems Review of Systems: CONSTITUTIONAL: Denies malaise, chills, sweats, or fever. CARDIOVASCULAR: Denies chest pain, palpitations, or edema. RESPIRATORY: Denies cough or dyspnea. GASTROINTESTINAL: Denies abdominal pain, nausea, vomiting, diarrhea GENITOURINARY: Reports frequency, urgency. Denies dysuria, suprapubic pressure, flank pain or hematuria. SKIN: Denies rash or itching. MUSCULOSKELETAL: Denies back pain or myalgia. All systems reviewed & are unremarkable except as noted in HPI and below PMFSH Past Medical History Medical History Anxiety Bronchitis Constipation Depression Family history of malignant neoplasm of colon in father Genitourinary disorder Interstitial cystitis, urethral dilation GERD (gastroesophageal reflux disease) Interstitial cystitis Irritable bowel syndrome Irritable bowel syndrome with constipation Mitral valve prolapse Right hand fracture Urinary tract infection Vaginal delivery Surgical History Surgical History H/O hemorrhoidectomy H/O sinus surgery H/O tubal ligation H/O umbilical hernia repair History of facial surgery Nasal reconstruction History of hysterectomy History of orthopedic surgery Right knee, trigger release finger left hand History of tonsillectomy History of urinary tract surgery Family History Family History Grandparent Diabetes mellitus, Onset Age: 200 Cerebrovascular accident, Onset Age: 200 Father Family history of elevated blood lipids Carcinoma of colon Family history of coronary artery disease, Onset Age: 201 Patient's father is Grandparent Family history of malignant neoplasm Diabetes mellitus Cerebrovascular accident Hypertension Family history of cardiovascular disease Father Family history of congestive heart failure Patient's father is Hypertension Carcinoma of colon Family history of emphysema Family hi
== END 2023-11-18 12:16 | disposition home or self-care (01) ==
PROVIDERS: Emergency Provider Nurse Practitioner; PCP Nurse Practitioner Family
DX: R35.0 Frequency of micturition (principal); Z87.891 Personal history of nicotine dependence
CPT/HCPCS: 81003; 87086; 87088; 99213; G0463

== ENCOUNTER 2023-11-22 12:03 | Emergency (ER) | payer BC, SELFPAY ==
[2023-11-22 12:08] VITALS: BP 115/79; PULSE 68; RESP 16; TEMP 36.6; O2SAT 100
--- NOTE | 2023-11-22 12:39 | ED.GENADULT ---
HPI - General Adult General Chief complaint: Urogenital-Female Stated complaint: Urinary Problem Source: patient Mode of arrival: ambulatory Limitations: no limitations History of Present Illness HPI narrative: Patient presents for evaluation of urinary symptoms for last 3 days. Symptoms include urinary frequency, suprapubic pressure and low back pain. No fever, chills, nausea, vomiting, vaginal discharge. She has a history interstitial cystitis so often has difficulties distinguishing UTI's from symptoms associated with IC. She called and scheduled an appt with her urologist for this coming . Related Data Home Medications Medication Instructions Recorded Confirmed No Home Medications 11/22/23 11/22/23 Allergies Allergy/AdvReac Type Severity Reaction Status Date / Time amoxicillin AdvReac Intermediate Chest Pain Verified 11/22/23 12:13 codeine AdvReac Intermediate Nausea and Verified 11/22/23 12:13 Vomiting ketorolac [From Toradol] AdvReac Intermediate Palpitation Verified 11/22/23 12:13 s levofloxacin [From Levaquin] AdvReac Intermediate Chest Pain Verified 11/22/23 12:13 nitrofurantoin AdvReac Intermediate Chest Pain Verified 11/22/23 12:13 [From Macrobid] Penicillins AdvReac Intermediate Chest Pain Verified 11/22/23 12:13 Sulfa (Sulfonamide AdvReac Intermediate Chest Pain Verified 11/22/23 12:13 Antibiotics) vancomycin AdvReac Intermediate Chest Pain Verified 11/22/23 12:13 acetaminophen AdvReac Mild Hives Verified 11/22/23 12:13 clindamycin AdvReac Mild Hives Verified 11/22/23 12:13 gadobenic acid AdvReac Mild Hives Verified 11/22/23 12:13 [From contrast - MRI] hydrocodone AdvReac Mild Hives Verified 11/22/23 12:13 iohexol AdvReac Mild Hives Verified 11/22/23 12:13 [From contrast - CT, X-RAY] latex AdvReac Mild RASH-CONDOMS Verified 11/22/23 12:13 AND GLOVES lubiprostone [From Amitiza] AdvReac Mild Itching Verified 11/22/23 12:13 paroxetine [From Paxil] AdvReac Mild Hives Verified 11/22/23 12:13 propoxyphene AdvReac Mild Itching Verified 11/22/23 12:13 [From Darvocet-N 100] Review of Systems Review of Systems: CONSTITUTIONAL: Denies fever, chills, or sweats. EYES: Denies visual changes, redness, or discharge. ENT: Denies rhinorrhea, congestion, sore throat, or otalgia. CARDIOVASCULAR: Denies chest pain, palpitations, or edema. RESPIRATORY: Denies cough or dyspnea. GASTROINTESTINAL: Denies abdominal pain, nausea, vomiting, or diarrhea. GENITOURINARY: Reports urinary frequency and suprapubic pressure. Denies hematuria SKIN: Denies rash or itching. MUSCULOSKELETAL: Reports low back pain. Denies joint pain, or myalgia. NEUROLOGIC: Denies headache, numbness, dizziness, or weakness. PSYCHIATRIC: Denies anxiety or depression. [facility] Past Medical History Medical History Anxiety Bronchitis Constipation Depression Family history of malignant neoplasm of colon in father Genitourinary disorder Interstitial cystitis, urethral dilation GERD (gastroesophageal reflux disease) Interstitial cystitis Irritable bowel syndrome Irritable bowel syndrome with constipation Mitral valve prolapse Right hand fracture Urinary tract infection Vaginal delivery Surgical History Surgical History H/O hemorrhoidectomy H/O sinus surgery H/O tubal ligation H/O umbilical hernia repair History of facial surgery Nasal reconstruction History of hysterectomy History of orthopedic surgery Right knee, trigger release finger left hand History of tonsillectomy History of urinary tract surgery Family History Family History Grandparent Diabetes mellitus, Onset Age: 200 Cerebrovascular accident, Onset Age: 200 Father Family history of elevated blood lipids Carcinoma of colon Family
== END 2023-11-22 12:40 | disposition home or self-care (01) ==
PROVIDERS: Emergency Provider Nurse Practitioner; PCP Nurse Practitioner Family
DX: N39.0 Urinary tract infection, site not specified (principal); Z87.891 Personal history of nicotine dependence; K21.9 Gastro-esophageal reflux disease without esophagitis; I34.1 Nonrheumatic mitral (valve) prolapse
CPT/HCPCS: 81003; 99212; G0463

== ENCOUNTER 2023-12-01 12:36 | Emergency (ER) | payer BC, SELFPAY ==
[2023-12-01 12:42] VITALS: BP 109/69; PULSE 80; RESP 16; TEMP 36.3; O2SAT 100
--- NOTE | 2023-12-01 13:06 | ED.FEMALEGU ---
HPI - Female Genitourinary General Chief complaint: Urogenital-Female Stated complaint: Uti Time Seen by Provider: 12/01/23 13:06 Source: patient, RN notes reviewed and old records reviewed Mode of arrival: ambulatory Limitations: no limitations History of Present Illness HPI Narrative: 48 year old female presents to [facility] with complaints of urinary frequency and burning which patient reports started 4 days ago and wants her urine checked for infection. Patient has history of interstitial cystitis, denies any fevers or any visible blood noted. Patient seen frequently in clinic for similar complaints, has not taken any OTC medications for her symptoms. Patient reports that she is suppose to start pelvic floor treatment thru PT. MD elicited complaint: dysuria and other (urinary frequency) Onset (ago): day(s) (4) Severity scale (1-10): 4 Quality of pain: burning and other (pressure) Vaginal discharge: none Urinary symptoms: Dysuria and Frequency Treatment prior to arrival: none Related Data Home Medications Medication Instructions Recorded Confirmed No Home Medications 11/22/23 12/01/23 Allergies Allergy/AdvReac Type Severity Reaction Status Date / Time amoxicillin AdvReac Intermediate Chest Pain Verified 12/01/23 12:43 codeine AdvReac Intermediate Nausea and Verified 12/01/23 12:43 Vomiting ketorolac [From Toradol] AdvReac Intermediate Palpitation Verified 12/01/23 12:43 s levofloxacin [From Levaquin] AdvReac Intermediate Chest Pain Verified 12/01/23 12:43 nitrofurantoin AdvReac Intermediate Chest Pain Verified 12/01/23 12:43 [From Macrobid] Penicillins AdvReac Intermediate Chest Pain Verified 12/01/23 12:43 Sulfa (Sulfonamide AdvReac Intermediate Chest Pain Verified 12/01/23 12:43 Antibiotics) vancomycin AdvReac Intermediate Chest Pain Verified 12/01/23 12:43 acetaminophen AdvReac Mild Hives Verified 12/01/23 12:43 clindamycin AdvReac Mild Hives Verified 12/01/23 12:43 gadobenic acid AdvReac Mild Hives Verified 12/01/23 12:43 [From contrast - MRI] hydrocodone AdvReac Mild Hives Verified 12/01/23 12:43 iohexol AdvReac Mild Hives Verified 12/01/23 12:43 [From contrast - CT, X-RAY] latex AdvReac Mild RASH-CONDOMS Verified 12/01/23 12:43 AND GLOVES lubiprostone [From Amitiza] AdvReac Mild Itching Verified 12/01/23 12:43 paroxetine [From Paxil] AdvReac Mild Hives Verified 12/01/23 12:43 propoxyphene AdvReac Mild Itching Verified 12/01/23 12:43 [From Darvocet-N 100] Review of Systems Review of Systems: CONSTITUTIONAL: Denies fever, chills, or sweats. CARDIOVASCULAR: Denies chest pain, palpitations, or edema. RESPIRATORY: Denies cough or dyspnea. GASTROINTESTINAL: Denies abdominal pain, nausea, vomiting, or diarrhea. GENITOURINARY: Reports dysuria, frequency, urgency,pressure bladder,. Denies flank pain or hematuria. SKIN: Denies rash or itching. MUSCULOSKELETAL: Denies back pain or myalgia. Denies CVA tenderness NEUROLOGIC: Denies headache All systems reviewed & are unremarkable except as noted in HPI and below PMFSH Past Medical History Medical History Anxiety Bronchitis Constipation Depression Family history of malignant neoplasm of colon in father Genitourinary disorder Interstitial cystitis, urethral dilation GERD (gastroesophageal reflux disease) Interstitial cystitis Irritable bowel syndrome Irritable bowel syndrome with constipation Mitral valve prolapse Right hand fracture Urinary tract infection Vaginal delivery Surgical History Surgical History H/O hemorrhoidectomy H/O sinus surgery H/O tubal ligation H/O umbilical hernia repair History of facial surgery Nasal reconstruction History of hysterectomy History of orthopedic surgery Right knee, trigger release finger left hand History of tonsillectomy History of urinary tract surgery
== END 2023-12-01 13:17 | disposition home or self-care (01) ==
PROVIDERS: Emergency Provider Registered Nurse; PCP Nurse Practitioner Family
DX: R30.0 Dysuria (principal); Z87.891 Personal history of nicotine dependence; K21.9 Gastro-esophageal reflux disease without esophagitis; I34.1 Nonrheumatic mitral (valve) prolapse
CPT/HCPCS: 81003; 99212; G0463

== ENCOUNTER 2023-12-09 10:00 | Emergency (ER) | payer BC, SELFPAY ==
[2023-12-09 10:05] VITALS: BP 126/81; PULSE 62; RESP 18; TEMP 36.7; O2SAT 100
--- NOTE | 2023-12-09 10:35 | ED.FEMALEGU ---
HPI - Female Genitourinary General Chief complaint: Urogenital-Female Stated complaint: Bladder check Time Seen by Provider: 12/09/23 10:35 Source: patient, RN notes reviewed and old records reviewed Mode of arrival: ambulatory Limitations: no limitations History of Present Illness HPI Narrative: 48 year old female who presents to [facility] care with complaints of frequency, urinary burning, and back pain for 5 day duration. Patient reports that has not taken any OTC medication for her symptoms. No fever, no nausea or vomiting or any vaginal discharge reported or itching. MD elicited complaint: dysuria and other Onset (ago): day(s) (5) Location of symptoms: urethra and low back Severity scale (1-10): 5 Vaginal discharge: none Treatment prior to arrival: none Related Data Home Medications Medication Instructions Recorded Confirmed No Home Medications 11/22/23 12/09/23 Allergies Allergy/AdvReac Type Severity Reaction Status Date / Time amoxicillin AdvReac Intermediate Chest Pain Verified 12/09/23 10:04 codeine AdvReac Intermediate Nausea and Verified 12/09/23 10:04 Vomiting ketorolac [From Toradol] AdvReac Intermediate Palpitation Verified 12/09/23 10:04 s levofloxacin [From Levaquin] AdvReac Intermediate Chest Pain Verified 12/09/23 10:04 nitrofurantoin AdvReac Intermediate Chest Pain Verified 12/09/23 10:04 [From Macrobid] Penicillins AdvReac Intermediate Chest Pain Verified 12/09/23 10:04 Sulfa (Sulfonamide AdvReac Intermediate Chest Pain Verified 12/09/23 10:04 Antibiotics) vancomycin AdvReac Intermediate Chest Pain Verified 12/09/23 10:04 acetaminophen AdvReac Mild Hives Verified 12/09/23 10:04 clindamycin AdvReac Mild Hives Verified 12/09/23 10:04 gadobenic acid AdvReac Mild Hives Verified 12/09/23 10:04 [From contrast - MRI] hydrocodone AdvReac Mild Hives Verified 12/09/23 10:04 iohexol AdvReac Mild Hives Verified 12/09/23 10:04 [From contrast - CT, X-RAY] latex AdvReac Mild RASH-CONDOMS Verified 12/09/23 10:04 AND GLOVES lubiprostone [From Amitiza] AdvReac Mild Itching Verified 12/09/23 10:04 paroxetine [From Paxil] AdvReac Mild Hives Verified 12/09/23 10:04 propoxyphene AdvReac Mild Itching Verified 12/09/23 10:04 [From Darvocet-N 100] Review of Systems Review of Systems: CONSTITUTIONAL: Denies fever, chills, or sweats. CARDIOVASCULAR: Denies chest pain, palpitations, or edema. RESPIRATORY: Denies cough or dyspnea. GASTROINTESTINAL: Denies abdominal pain, nausea, vomiting, or diarrhea. GENITOURINARY: Reports dysuria, frequency, urgency. Denies flank pain or hematuria. SKIN: Denies rash or itching. MUSCULOSKELETAL: Reports lower back pain or myalgia. Denies CVA tenderness NEUROLOGIC: Denies headache All systems reviewed & are unremarkable except as noted in HPI and below PMFSH Past Medical History Medical History Anxiety Bronchitis Constipation Depression Family history of malignant neoplasm of colon in father Genitourinary disorder Interstitial cystitis, urethral dilation GERD (gastroesophageal reflux disease) Interstitial cystitis Irritable bowel syndrome Irritable bowel syndrome with constipation Mitral valve prolapse Right hand fracture Urinary tract infection Vaginal delivery Surgical History Surgical History H/O hemorrhoidectomy H/O sinus surgery H/O tubal ligation H/O umbilical hernia repair History of facial surgery Nasal reconstruction History of hysterectomy History of orthopedic surgery Right knee, trigger release finger left hand History of tonsillectomy History of urinary tract surgery Family History Family History Grandparent Diabetes mellitus, Onset Age: 200 Cerebrovascular accident, Onset Age: 200 Father Family history of elevated blood lipi
== END 2023-12-09 10:48 | disposition home or self-care (01) ==
PROVIDERS: Emergency Provider Registered Nurse
DX: R30.0 Dysuria (principal); Z87.891 Personal history of nicotine dependence; K21.9 Gastro-esophageal reflux disease without esophagitis; I34.1 Nonrheumatic mitral (valve) prolapse
CPT/HCPCS: 81003; 99212; G0463

== ENCOUNTER 2023-12-24 14:13 | Emergency (ER) | payer BC, SELFPAY ==
[2023-12-24 14:16] VITALS: BP 144/84; PULSE 64; RESP 16; TEMP 36.2; O2SAT 100
--- NOTE | 2023-12-24 15:38 | ED.FEMALEGU ---
HPI - Female Genitourinary General Chief complaint: Urogenital-Female Stated complaint: Urinary Problem Time Seen by Provider: 12/24/23 15:15 Source: patient Mode of arrival: ambulatory Limitations: no limitations History of Present Illness HPI Narrative: 48 year old female who presents to [facility] care with complaints of frequency and burning with urination for the past 4 days with history of interstitial cystitis. Patient has not taken any OTC medications for her symptoms. Patient reports that she also has some vaginal irritation today and her ASSISTANT ACCOUNT MANAGER doctor has called some Flogyl ointment in for her that she plans to belt picker today. Patient reports no caffeine intake admits to needing to increase her water consumption. MD elicited complaint: dysuria Pertinent past history: interstitial cystits Onset (ago): day(s) (4) Location of symptoms: perineum and urethra Severity: moderate Severity scale (1-10): 5 Vaginal discharge: none Related Data Home Medications Medication Instructions Recorded Confirmed No Home Medications 11/22/23 12/09/23 Allergies Allergy/AdvReac Type Severity Reaction Status Date / Time amoxicillin AdvReac Intermediate Chest Pain Verified 12/09/23 10:04 codeine AdvReac Intermediate Nausea and Verified 12/09/23 10:04 Vomiting ketorolac [From Toradol] AdvReac Intermediate Palpitation Verified 12/09/23 10:04 s levofloxacin [From Levaquin] AdvReac Intermediate Chest Pain Verified 12/09/23 10:04 nitrofurantoin AdvReac Intermediate Chest Pain Verified 12/09/23 10:04 [From Macrobid] Penicillins AdvReac Intermediate Chest Pain Verified 12/09/23 10:04 Sulfa (Sulfonamide AdvReac Intermediate Chest Pain Verified 12/09/23 10:04 Antibiotics) vancomycin AdvReac Intermediate Chest Pain Verified 12/09/23 10:04 acetaminophen AdvReac Mild Hives Verified 12/09/23 10:04 clindamycin AdvReac Mild Hives Verified 12/09/23 10:04 gadobenic acid AdvReac Mild Hives Verified 12/09/23 10:04 [From contrast - MRI] hydrocodone AdvReac Mild Hives Verified 12/09/23 10:04 iohexol AdvReac Mild Hives Verified 12/09/23 10:04 [From contrast - CT, X-RAY] latex AdvReac Mild RASH-CONDOMS Verified 12/09/23 10:04 AND GLOVES lubiprostone [From Amitiza] AdvReac Mild Itching Verified 12/09/23 10:04 paroxetine [From Paxil] AdvReac Mild Hives Verified 12/09/23 10:04 propoxyphene AdvReac Mild Itching Verified 12/09/23 10:04 [From Darvocet-N 100] Review of Systems Review of Systems: CONSTITUTIONAL: Denies fever, chills, or sweats. CARDIOVASCULAR: Denies chest pain, palpitations, or edema. RESPIRATORY: Denies cough or dyspnea. GASTROINTESTINAL: Denies abdominal pain, nausea, vomiting, or diarrhea. GENITOURINARY: Reports dysuria, frequency, urgency. Denies flank pain or hematuria.states some new vaginal irritation that she has called her ASSISTANT ACCOUNT MANAGER about SKIN: Denies rash or itching. MUSCULOSKELETAL: Denies back pain or myalgia. Denies CVA tenderness NEUROLOGIC: Denies headache All systems reviewed & are unremarkable except as noted in HPI and below PMFSH Past Medical History Medical History Anxiety Bronchitis Constipation Depression Family history of malignant neoplasm of colon in father Genitourinary disorder Interstitial cystitis, urethral dilation GERD (gastroesophageal reflux disease) Interstitial cystitis Irritable bowel syndrome Irritable bowel syndrome with constipation Mitral valve prolapse Right hand fracture Urinary tract infection Vaginal delivery Surgical History Surgical History H/O hemorrhoidectomy H/O sinus surgery H/O tubal ligation H/O umbilical hernia repair History of facial surgery Nasal reconstruction History of hysterectomy History of orthopedic surgery Right knee, trigger release finger left hand History of tonsillectomy History of urinary tract surgery Family Hi
== END 2023-12-24 15:43 | disposition home or self-care (01) ==
PROVIDERS: Emergency Provider Registered Nurse; PCP Nurse Practitioner Family
DX: R30.0 Dysuria (principal); Z87.891 Personal history of nicotine dependence; K21.9 Gastro-esophageal reflux disease without esophagitis; I34.1 Nonrheumatic mitral (valve) prolapse
CPT/HCPCS: 81003; 99212; G0463

== ENCOUNTER 2024-01-03 09:16 | Emergency (ER) | payer BC, SELFPAY ==
[2024-01-03 09:25] VITALS: BP 138/83; PULSE 65; RESP 16; TEMP 36.6; O2SAT 100
--- NOTE | 2024-01-03 09:51 | ED.FEMALEGU ---
HPI - Female Genitourinary General Chief complaint: Urogenital-Female Stated complaint: Uti symptoms Time Seen by Provider: 01/03/24 09:46 Source: patient and RN notes reviewed Mode of arrival: ambulatory Limitations: no limitations History of Present Illness HPI Narrative: Patient presents today complaining of urinary frequency for the last couple of days. Denies any other symptoms. Patient has interstitial cystitis in the symptoms can be chronic for her. She is seen frequently at [facility] for same symptoms and chronically has trace blood in her urine. States she saw her urologist this week and should be starting pelvic floor physical therapy in the near future. Related Data Home Medications Medication Instructions Recorded Confirmed No Home Medications 11/22/23 01/03/24 Allergies Allergy/AdvReac Type Severity Reaction Status Date / Time amoxicillin AdvReac Intermediate Chest Pain Verified 01/03/24 09:40 codeine AdvReac Intermediate Nausea and Verified 01/03/24 09:40 Vomiting ketorolac [From Toradol] AdvReac Intermediate Palpitation Verified 01/03/24 09:40 s levofloxacin [From Levaquin] AdvReac Intermediate Chest Pain Verified 01/03/24 09:40 nitrofurantoin AdvReac Intermediate Chest Pain Verified 01/03/24 09:40 [From Macrobid] Penicillins AdvReac Intermediate Chest Pain Verified 01/03/24 09:40 Sulfa (Sulfonamide AdvReac Intermediate Chest Pain Verified 01/03/24 09:40 Antibiotics) vancomycin AdvReac Intermediate Chest Pain Verified 01/03/24 09:40 acetaminophen AdvReac Mild Hives Verified 01/03/24 09:40 clindamycin AdvReac Mild Hives Verified 01/03/24 09:40 gadobenic acid AdvReac Mild Hives Verified 01/03/24 09:40 [From contrast - MRI] hydrocodone AdvReac Mild Hives Verified 01/03/24 09:40 iohexol AdvReac Mild Hives Verified 01/03/24 09:40 [From contrast - CT, X-RAY] latex AdvReac Mild RASH-CONDOMS Verified 01/03/24 09:40 AND GLOVES lubiprostone [From Amitiza] AdvReac Mild Itching Verified 01/03/24 09:40 paroxetine [From Paxil] AdvReac Mild Hives Verified 01/03/24 09:40 propoxyphene AdvReac Mild Itching Verified 01/03/24 09:40 [From [facility]-N 100] Review of Systems Review of Systems: CONSTITUTIONAL: Denies body aches, fever, chills, or sweats. EYES: Denies visual changes, redness, or discharge. ENT: Denies rhinorrhea, congestion, sore throat, or otalgia. CARDIOVASCULAR: Denies chest pain, palpitations, or edema. RESPIRATORY: Denies cough or dyspnea. GASTROINTESTINAL: Denies abdominal pain, nausea, vomiting, or diarrhea. GENITOURINARY: + frequency SKIN: Denies rash, itching, or wounds. MUSCULOSKELETAL: Denies back pain, joint pain, or myalgia. NEUROLOGIC: Denies headache, numbness, tingling, or weakness. PSYCH: Denies depression or anxiety. [facility] Past Medical History Medical History Anxiety Bronchitis Constipation Depression Family history of malignant neoplasm of colon in father Genitourinary disorder Interstitial cystitis, urethral dilation GERD (gastroesophageal reflux disease) Interstitial cystitis Irritable bowel syndrome Irritable bowel syndrome with constipation Mitral valve prolapse Right hand fracture Urinary tract infection Vaginal delivery Surgical History Surgical History H/O hemorrhoidectomy H/O sinus surgery H/O tubal ligation H/O umbilical hernia repair History of facial surgery Nasal reconstruction History of hysterectomy History of orthopedic surgery Right knee, trigger release finger left hand History of tonsillectomy History of urinary tract surgery Family History Family History Grandparent Diabetes mellitus, Onset Age: 200 Cerebrovascular accident, Onset Age: 200 Father Family history of elevated blood lipids Carcinoma of
== END 2024-01-03 09:57 | disposition home or self-care (01) ==
PROVIDERS: Emergency Provider Nurse Practitioner; PCP Nurse Practitioner Family
DX: N30.10 Interstitial cystitis (chronic) without hematuria (principal); K21.9 Gastro-esophageal reflux disease without esophagitis; I34.1 Nonrheumatic mitral (valve) prolapse
CPT/HCPCS: 81003; 99212; G0463

== ENCOUNTER 2024-01-17 09:22 | Emergency (ER) | payer BC, SELFPAY ==
[2024-01-17 09:27] VITALS: BP 122/81; PULSE 67; RESP 16; TEMP 36.6; O2SAT 100
--- NOTE | 2024-01-17 10:45 | ED.GENADULT ---
HPI - General Adult General Chief complaint: Urogenital-Female Stated complaint: Urinary Problem Source: patient Mode of arrival: ambulatory Limitations: no limitations History of Present Illness HPI narrative: Patient presents for evaluation of bladder spasms. She has a history of interstitial cystitis. She states that she had her urethra dilated three days ago. She has experienced intermittent bladder spasms since that time. No fever, chills, nausea, vomiting, low back pain, dysuria, urinary frequency or other urinary symptoms. She wanted to make sure she does not have a UTI. Related Data Home Medications Medication Instructions Recorded Confirmed ciprofloxacin HCl 500 mg tablet 500 mg PO BID 01/17/24 01/17/24 Allergies Allergy/AdvReac Type Severity Reaction Status Date / Time amoxicillin AdvReac Intermediate Chest Pain Verified 01/17/24 09:34 codeine AdvReac Intermediate Nausea and Verified 01/17/24 09:34 Vomiting ketorolac [From Toradol] AdvReac Intermediate Palpitation Verified 01/17/24 09:34 s levofloxacin [From Levaquin] AdvReac Intermediate Chest Pain Verified 01/17/24 09:34 nitrofurantoin AdvReac Intermediate Chest Pain Verified 01/17/24 09:34 [From Macrobid] Penicillins AdvReac Intermediate Chest Pain Verified 01/17/24 09:34 Sulfa (Sulfonamide AdvReac Intermediate Chest Pain Verified 01/17/24 09:34 Antibiotics) vancomycin AdvReac Intermediate Chest Pain Verified 01/17/24 09:34 acetaminophen AdvReac Mild Hives Verified 01/17/24 09:34 clindamycin AdvReac Mild Hives Verified 01/17/24 09:34 gadobenic acid AdvReac Mild Hives Verified 01/17/24 09:34 [From contrast - MRI] hydrocodone AdvReac Mild Hives Verified 01/17/24 09:34 iohexol AdvReac Mild Hives Verified 01/17/24 09:34 [From contrast - CT, X-RAY] latex AdvReac Mild RASH-CONDOMS Verified 01/17/24 09:34 AND GLOVES lubiprostone [From Amitiza] AdvReac Mild Itching Verified 01/17/24 09:34 paroxetine [From Paxil] AdvReac Mild Hives Verified 01/17/24 09:34 propoxyphene AdvReac Mild Itching Verified 01/17/24 09:34 [From Darvocet-N 100] Review of Systems Review of Systems: CONSTITUTIONAL: Denies fever, chills, or sweats. EYES: Denies visual changes, redness, or discharge. ENT: Denies rhinorrhea, congestion, sore throat, or otalgia. CARDIOVASCULAR: Denies chest pain, palpitations, or edema. RESPIRATORY: Denies cough or dyspnea. GASTROINTESTINAL: Denies abdominal pain, nausea, vomiting, or diarrhea. GENITOURINARY: Reports bladder spasms. Denies dysuria, urinary frequency, hematuria or other urinary symptoms SKIN: Denies rash or itching. MUSCULOSKELETAL: Denies back pain, joint pain, or myalgia. NEUROLOGIC: Denies headache, numbness, dizziness, or weakness. PSYCHIATRIC: Denies anxiety or depression. [facility] Past Medical History Medical History Anxiety Bronchitis Constipation Depression Family history of malignant neoplasm of colon in father Genitourinary disorder Interstitial cystitis, urethral dilation GERD (gastroesophageal reflux disease) Interstitial cystitis Irritable bowel syndrome Irritable bowel syndrome with constipation Mitral valve prolapse Right hand fracture Urinary tract infection Vaginal delivery Surgical History Surgical History H/O hemorrhoidectomy H/O sinus surgery H/O tubal ligation H/O umbilical hernia repair History of facial surgery Nasal reconstruction History of hysterectomy History of orthopedic surgery Right knee, trigger release finger left hand History of tonsillectomy History of urinary tract surgery Family History Family History Grandparent Diabetes mellitus, Onset Age: 200 Cerebrovascular accident, Onset Age: 200 Father Family history of elevated blood lipids Carcinoma of
== END 2024-01-17 10:13 | disposition home or self-care (01) ==
PROVIDERS: Emergency Provider Nurse Practitioner; PCP Nurse Practitioner Family
DX: N30.10 Interstitial cystitis (chronic) without hematuria (principal); R31.29 Other microscopic hematuria; Z87.891 Personal history of nicotine dependence; K21.9 Gastro-esophageal reflux disease without esophagitis; I34.1 Nonrheumatic mitral (valve) prolapse
CPT/HCPCS: 81003; 99212; G0463

== ENCOUNTER 2024-01-25 09:44 | Emergency (ER) | payer BC, SELFPAY ==
[2024-01-25 09:52] VITALS: BP 138/78; PULSE 59; RESP 20; TEMP 37.1; O2SAT 100
--- NOTE | 2024-01-25 10:16 | ED.FEMALEGU ---
HPI - Female Genitourinary General Chief complaint: Urogenital-Female Stated complaint: bladder things Time Seen by Provider: 01/25/24 10:10 Source: patient, RN notes reviewed and old records reviewed Mode of arrival: ambulatory Limitations: no limitations History of Present Illness HPI Narrative: 49 year old female who presents to [facility] care with complaints of painful urination for 1 week duration with pain increasing to her lower back radiating around to pubis area today. Patient has not taken anything for her discomfort. Patient reports that she is doing pelvic floor therapy presently. Patient reports no fevers chills or sweats. Records indicate patient placed on Cipro 500 mg po by mouth BID for 7 days, and was seen in this clinic on 01/17/2024 for urine dip. MD elicited complaint: UTI Pertinent past history: interstitial cystits Onset (ago): week(s) (1) Location of symptoms: suprapubic, urethra and low back Severity: mild Quality of pain: aching Vaginal discharge: none Vaginal bleeding: none Urinary symptoms: Urgency and Frequency Treatment prior to arrival: none Related Data Home Medications Medication Instructions Recorded Confirmed amitriptyline 25 mg tablet mg 01/25/24 plecanatide 3 mg tablet (Trulance) mg 01/25/24 Allergies Allergy/AdvReac Type Severity Reaction Status Date / Time amoxicillin AdvReac Intermediate Chest Pain Verified 01/17/24 09:34 codeine AdvReac Intermediate Nausea and Verified 01/17/24 09:34 Vomiting ketorolac [From Toradol] AdvReac Intermediate Palpitation Verified 01/17/24 09:34 s levofloxacin [From Levaquin] AdvReac Intermediate Chest Pain Verified 01/17/24 09:34 nitrofurantoin AdvReac Intermediate Chest Pain Verified 01/17/24 09:34 [From Macrobid] Penicillins AdvReac Intermediate Chest Pain Verified 01/17/24 09:34 Sulfa (Sulfonamide AdvReac Intermediate Chest Pain Verified 01/17/24 09:34 Antibiotics) vancomycin AdvReac Intermediate Chest Pain Verified 01/17/24 09:34 acetaminophen AdvReac Mild Hives Verified 01/17/24 09:34 clindamycin AdvReac Mild Hives Verified 01/17/24 09:34 gadobenic acid AdvReac Mild Hives Verified 01/17/24 09:34 [From contrast - MRI] hydrocodone AdvReac Mild Hives Verified 01/17/24 09:34 iohexol AdvReac Mild Hives Verified 01/17/24 09:34 [From contrast - CT, X-RAY] latex AdvReac Mild RASH-CONDOMS Verified 01/17/24 09:34 AND GLOVES lubiprostone [From Amitiza] AdvReac Mild Itching Verified 01/17/24 09:34 paroxetine [From Paxil] AdvReac Mild Hives Verified 01/17/24 09:34 propoxyphene AdvReac Mild Itching Verified 01/17/24 09:34 [From Darvocet-N 100] Review of Systems Review of Systems: CONSTITUTIONAL: Denies fever, chills, or sweats. CARDIOVASCULAR: Denies chest pain, palpitations, or edema. RESPIRATORY: Denies cough or dyspnea. GASTROINTESTINAL: Denies abdominal pain, nausea, vomiting, or diarrhea. GENITOURINARY: Reports dysuria, frequency, urgency. Denies flank pain or hematuria, some low back pain radiating to supra pubic area patient reports SKIN: Denies rash or itching. MUSCULOSKELETAL: Reports low back pain or myalgia. Denies CVA tenderness NEUROLOGIC: Denies headache All systems reviewed & are unremarkable except as noted in HPI and below PMFSH Past Medical History Medical History Anxiety Bronchitis Constipation Depression Family history of malignant neoplasm of colon in father Genitourinary disorder Interstitial cystitis, urethral dilation GERD (gastroesophageal reflux disease) Interstitial cystitis Irritable bowel syndrome Irritable bowel syndrome with constipation Mitral valve prolapse Right hand fracture Urinary tract infection Vaginal delivery Surgical History Surgical History H/O hemorrhoidectomy H/O sinus surgery H/O tubal ligation H/O umbilical hernia repair History of facial surgery
== END 2024-01-25 10:45 | disposition home or self-care (01) ==
PROVIDERS: Emergency Provider Registered Nurse
DX: N30.90 Cystitis, unspecified without hematuria (principal); K21.9 Gastro-esophageal reflux disease without esophagitis; I34.1 Nonrheumatic mitral (valve) prolapse; Z87.891 Personal history of nicotine dependence
CPT/HCPCS: 81003; 99212; G0463

== ENCOUNTER 2024-02-07 11:30 | Emergency (ER) | payer BC, SELFPAY ==
[2024-02-07 11:50] VITALS: BP 115/77; PULSE 60; RESP 18; TEMP 36.7; O2SAT 100
--- NOTE | 2024-02-07 12:44 | ED.GENADULT ---
HPI - General Adult General Chief complaint: Urogenital-Female Stated complaint: Urine Check Source: patient Mode of arrival: ambulatory Limitations: no limitations History of Present Illness HPI narrative: Patient presents for evaluation of urinary symptoms since yesterday. She reports some dysuria and bladder spasms. She attributes the symptoms to eating a hamburger that had quite a bit of pepper on it. She has a history of interstitial cystitis. She has chronic urinary frequency. No fever, chills, abdominal pain, low back pain. Related Data Home Medications Medication Instructions Recorded Confirmed amitriptyline 25 mg tablet 25 mg PO DAILY 01/25/24 plecanatide 3 mg tablet (Trulance) 3 mg PO DAILY 01/25/24 Allergies Allergy/AdvReac Type Severity Reaction Status Date / Time amoxicillin AdvReac Intermediate Chest Pain Verified 02/07/24 12:00 codeine AdvReac Intermediate Nausea and Verified 02/07/24 12:00 Vomiting ketorolac [From Toradol] AdvReac Intermediate Palpitation Verified 02/07/24 12:00 s levofloxacin [From Levaquin] AdvReac Intermediate Chest Pain Verified 02/07/24 12:00 nitrofurantoin AdvReac Intermediate Chest Pain Verified 02/07/24 12:00 [From Macrobid] Penicillins AdvReac Intermediate Chest Pain Verified 02/07/24 12:00 Sulfa (Sulfonamide AdvReac Intermediate Chest Pain Verified 02/07/24 12:00 Antibiotics) vancomycin AdvReac Intermediate Chest Pain Verified 02/07/24 12:00 acetaminophen AdvReac Mild Hives Verified 02/07/24 12:00 clindamycin AdvReac Mild Hives Verified 02/07/24 12:00 gadobenic acid AdvReac Mild Hives Verified 02/07/24 12:00 [From contrast - MRI] hydrocodone AdvReac Mild Hives Verified 02/07/24 12:00 iohexol AdvReac Mild Hives Verified 02/07/24 12:00 [From contrast - CT, X-RAY] latex AdvReac Mild RASH-CONDOMS Verified 02/07/24 12:00 AND GLOVES lubiprostone [From Amitiza] AdvReac Mild Itching Verified 02/07/24 12:00 paroxetine [From Paxil] AdvReac Mild Hives Verified 02/07/24 12:00 propoxyphene AdvReac Mild Itching Verified 02/07/24 12:00 [From [facility]-N 100] Review of Systems Review of Systems: CONSTITUTIONAL: Denies fever, chills, or sweats. EYES: Denies visual changes, redness, or discharge. ENT: Denies rhinorrhea, congestion, sore throat, or otalgia. CARDIOVASCULAR: Denies chest pain, palpitations, or edema. RESPIRATORY: Denies cough or dyspnea. GASTROINTESTINAL: Denies abdominal pain, nausea, vomiting, or diarrhea. GENITOURINARY: Reports dysuria and bladder spasms. SKIN: Denies rash or itching. MUSCULOSKELETAL: Denies back pain, joint pain, or myalgia. NEUROLOGIC: Denies headache, numbness, dizziness, or weakness. PSYCHIATRIC: Denies anxiety or depression. [facility] Past Medical History Medical History Anxiety Bronchitis Constipation Depression Family history of malignant neoplasm of colon in father Genitourinary disorder Interstitial cystitis, urethral dilation GERD (gastroesophageal reflux disease) Interstitial cystitis Irritable bowel syndrome Irritable bowel syndrome with constipation Mitral valve prolapse Right hand fracture Urinary tract infection Vaginal delivery Surgical History Surgical History H/O hemorrhoidectomy H/O sinus surgery H/O tubal ligation H/O umbilical hernia repair History of facial surgery Nasal reconstruction History of hysterectomy History of orthopedic surgery Right knee, trigger release finger left hand History of tonsillectomy History of urinary tract surgery Family History Family History Grandparent Diabetes mellitus, Onset Age: 200 Cerebrovascular accident, Onset Age: 200 Father Family history of elevated blood lipids Carcinoma of colon Family history of coronary artery disease, Onset A
== END 2024-02-07 12:30 | disposition home or self-care (01) ==
PROVIDERS: Emergency Provider Nurse Practitioner
DX: N30.10 Interstitial cystitis (chronic) without hematuria (principal); R30.0 Dysuria; R31.29 Other microscopic hematuria; K21.9 Gastro-esophageal reflux disease without esophagitis; I34.1 Nonrheumatic mitral (valve) prolapse; F32.A Depression, unspecified
CPT/HCPCS: 81003; 99212; G0463

== ENCOUNTER 2024-02-14 11:08 | Emergency (ER) | payer BC, SELFPAY ==
[2024-02-14 11:19] VITALS: BP 128/82; PULSE 72; RESP 20; TEMP 36.7; O2SAT 100
--- NOTE | 2024-02-14 11:36 | ED.ABDPAIN ---
HPI - Abdominal Pain General Chief Complaint: Urogenital-Female Stated Complaint: Urinary Problem History of Present Illness HPI narrative: Pt is a 49 y/o female, pMHx of recurrent UTI and interstitial cystitis, here multiple times in the past for the same symptoms, most recently here 01/17/2024 and treated with Cipro for dysuria and interstitial cystitis, returning on 01/25/2024 and again 02/07/2024, both times for dysuria, without evidence of infection. She returns today with dysuria and frequency after drinking more tea than usual and now reports she is concerned she has developed a recurrent infection. She denies associated fevers, flank pain or vomiting. she has no vaginal discharge or STI concerns. she denies modifying factors. Related Data Home Medications Medication Instructions Recorded Confirmed No Home Medications 02/14/24 02/14/24 Allergies Allergy/AdvReac Type Severity Reaction Status Date / Time amoxicillin AdvReac Intermediate Chest Pain Verified 02/14/24 11:24 codeine AdvReac Intermediate Nausea and Verified 02/14/24 11:24 Vomiting ketorolac [From Toradol] AdvReac Intermediate Palpitation Verified 02/14/24 11:24 s levofloxacin [From Levaquin] AdvReac Intermediate Chest Pain Verified 02/14/24 11:24 nitrofurantoin AdvReac Intermediate Chest Pain Verified 02/14/24 11:24 [From Macrobid] Penicillins AdvReac Intermediate Chest Pain Verified 02/14/24 11:24 Sulfa (Sulfonamide AdvReac Intermediate Chest Pain Verified 02/14/24 11:24 Antibiotics) vancomycin AdvReac Intermediate Chest Pain Verified 02/14/24 11:24 acetaminophen AdvReac Mild Hives Verified 02/14/24 11:24 clindamycin AdvReac Mild Hives Verified 02/14/24 11:24 gadobenic acid AdvReac Mild Hives Verified 02/14/24 11:24 [From contrast - MRI] hydrocodone AdvReac Mild Hives Verified 02/14/24 11:24 iohexol AdvReac Mild Hives Verified 02/14/24 11:24 [From contrast - CT, X-RAY] latex AdvReac Mild RASH-CONDOMS Verified 02/14/24 11:24 AND GLOVES lubiprostone [From Amitiza] AdvReac Mild Itching Verified 03/30/24 11:24 paroxetine [From Paxil] AdvReac Mild Hives Verified 02/14/24 11:24 propoxyphene AdvReac Mild Itching Verified 02/14/24 11:24 [From Darvocet-N 100] Review of Systems Genitourinary: Comments: refer to [facility] Past Medical History Medical History Anxiety Bronchitis Constipation Depression Family history of malignant neoplasm of colon in father Genitourinary disorder Interstitial cystitis, urethral dilation GERD (gastroesophageal reflux disease) Interstitial cystitis Irritable bowel syndrome Irritable bowel syndrome with constipation Mitral valve prolapse Right hand fracture Urinary tract infection Vaginal delivery Surgical History Surgical History H/O hemorrhoidectomy H/O sinus surgery H/O tubal ligation H/O umbilical hernia repair History of facial surgery Nasal reconstruction History of hysterectomy History of orthopedic surgery Right knee, trigger release finger left hand History of tonsillectomy History of urinary tract surgery Family History Family History Grandparent Diabetes mellitus, Onset Age: 200 Cerebrovascular accident, Onset Age: 200 Father Family history of elevated blood lipids Carcinoma of colon Family history of coronary artery disease, Onset Age: 201 Patient's father is Grandparent Family history of malignant neoplasm Diabetes mellitus Cerebrovascular accident Hypertension Family history of cardiovascular disease Father Family history of congestive heart failure Patient's father is Hypertension Carcinoma of colon Family history of emphysema Family history of cardiovascular disease Sibling Hypertension Grandparent Diabetes me
== END 2024-02-14 12:08 | disposition home or self-care (01) ==
PROVIDERS: Emergency Provider Nurse Practitioner Family
DX: R30.0 Dysuria (principal); N30.21 Other chronic cystitis with hematuria; Z87.891 Personal history of nicotine dependence; K21.9 Gastro-esophageal reflux disease without esophagitis; I34.1 Nonrheumatic mitral (valve) prolapse
CPT/HCPCS: 81003; 99212; G0463

== ENCOUNTER 2024-02-26 18:29 | Emergency (ER) | payer BC, SELFPAY ==
--- NOTE | 2024-02-26 18:42 | ED.FEMALEGU ---
HPI - Female Genitourinary General Chief complaint: Urogenital-Female Stated complaint: BLADDER PROBLEMS Time Seen by Provider: 02/26/24 19:00 Source: patient and RN notes reviewed Mode of arrival: ambulatory Limitations: no limitations History of Present Illness HPI Narrative: Pt is a 49 y/o female, pMHx of recurrent UTI and interstitial cystitis, presented for c/o dysuria x3-4 days. Pt here multiple times in the past for the same symptoms, most recently 02/14/2024. Pt was treated on 01/16 with Cipro for dysuria and interstitial cystitis, returning on 01/24, 02/06 for dysuria without evidence of infection. Pt Follows with urology. Denies hematuria, nausea, vomiting, abdominal pain, flank pain, constipation, diarrhea, fevers or chills. Related Data Home Medications Medication Instructions Recorded Confirmed No Home Medications 02/14/24 02/14/24 Allergies Allergy/AdvReac Type Severity Reaction Status Date / Time amoxicillin AdvReac Intermediate Chest Pain Verified 02/14/24 11:24 codeine AdvReac Intermediate Nausea and Verified 02/14/24 11:24 Vomiting ketorolac [From Toradol] AdvReac Intermediate Palpitation Verified 02/14/24 11:24 s levofloxacin [From Levaquin] AdvReac Intermediate Chest Pain Verified 02/14/24 11:24 nitrofurantoin AdvReac Intermediate Chest Pain Verified 02/14/24 11:24 [From Macrobid] Penicillins AdvReac Intermediate Chest Pain Verified 02/14/24 11:24 Sulfa (Sulfonamide AdvReac Intermediate Chest Pain Verified 02/14/24 11:24 Antibiotics) vancomycin AdvReac Intermediate Chest Pain Verified 02/14/24 11:24 acetaminophen AdvReac Mild Hives Verified 02/14/24 11:24 clindamycin AdvReac Mild Hives Verified 02/14/24 11:24 gadobenic acid AdvReac Mild Hives Verified 02/14/24 11:24 [From contrast - MRI] hydrocodone AdvReac Mild Hives Verified 02/14/24 11:24 iohexol AdvReac Mild Hives Verified 02/14/24 11:24 [From contrast - CT, X-RAY] latex AdvReac Mild RASH-CONDOMS Verified 02/14/24 11:24 AND GLOVES lubiprostone [From Amitiza] AdvReac Mild Itching Verified 02/14/24 11:24 paroxetine [From Paxil] AdvReac Mild Hives Verified 02/14/24 11:24 propoxyphene AdvReac Mild Itching Verified 02/14/24 11:24 [From Darvocet-N 100] Review of Systems Review of Systems: CONSTITUTIONAL: Denies body aches, fever, chills, or sweats. CARDIOVASCULAR: Denies chest pain, palpitations, or edema. RESPIRATORY: Denies cough or dyspnea. GASTROINTESTINAL: Denies abdominal pain, nausea, vomiting, or diarrhea. GENITOURINARY: Reports dysuria, denies frequency, urgency, hematuria, flank pain SKIN: Denies rash, itching, or wounds. MUSCULOSKELETAL: Denies back pain or myalgia. [facility] Past Medical History Medical History Anxiety Bronchitis Constipation Depression Family history of malignant neoplasm of colon in father Genitourinary disorder Interstitial cystitis, urethral dilation GERD (gastroesophageal reflux disease) Interstitial cystitis Irritable bowel syndrome Irritable bowel syndrome with constipation Mitral valve prolapse Right hand fracture Urinary tract infection Vaginal delivery Surgical History Surgical History H/O hemorrhoidectomy H/O sinus surgery H/O tubal ligation H/O umbilical hernia repair History of facial surgery Nasal reconstruction History of hysterectomy History of orthopedic surgery Right knee, trigger release finger left hand History of tonsillectomy History of urinary tract surgery Family History Family History Grandparent Diabetes mellitus, Onset Age: 200 Cerebrovascular accident, Onset Age: 200 Father Family history of elevated blood lipids Carcinoma of colon Family history of coronary artery disease, Onset Age: 201 Patient's father is Grandparent Family his
[2024-02-26 18:51] VITALS: BP 108/87; PULSE 84; RESP 16; TEMP 36.2; O2SAT 99
== END 2024-02-26 19:24 | disposition home or self-care (01) ==
PROVIDERS: Emergency Provider Nurse Practitioner Family
DX: N30.10 Interstitial cystitis (chronic) without hematuria (principal); Z87.891 Personal history of nicotine dependence; K21.9 Gastro-esophageal reflux disease without esophagitis; I34.1 Nonrheumatic mitral (valve) prolapse
CPT/HCPCS: 81003; 87086; 87088; 99213; G0463

== ENCOUNTER 2024-03-02 13:22 | Emergency (ER) | payer BC, SELFPAY ==
[2024-03-02 13:26] VITALS: BP 123/79; PULSE 79; RESP 20; TEMP 37.1; O2SAT 100
--- NOTE | 2024-03-02 13:51 | ED.MALEGU ---
HPI - Male Genitourinary General Chief complaint: Urogenital-Female Stated complaint: bladder issues Time Seen by Provider: 03/02/24 13:40 Source: patient, RN notes reviewed and old records reviewed Mode of arrival: ambulatory Limitations: no limitations History of Present Illness HPI Narrative: 49 year old female who presents to [facility] care with complaints of having frequency, burning, and urinary spasms for the pat 3-4 days. Patient reports that she is drinking a lot of water daily though her Specific gravity is 1.030. She reports that she drinks 4-5 bottles of water daily, instructed her she needs to drink 6-8 bottles of water. Patient reports that she has not had any fevers, chills, or sweats. MD Complaint: dysuria and other (urinary spasms frequency) Onset (ago): day(s) (3 to 4) Severity scale (1-10): 4 Associated symptoms: Reports other (burning with urination, spasms, frequency) Related Data Home Medications Medication Instructions Recorded Confirmed No Home Medications 02/14/24 03/02/24 Allergies Allergy/AdvReac Type Severity Reaction Status Date / Time amoxicillin AdvReac Intermediate Chest Pain Verified 03/02/24 13:47 codeine AdvReac Intermediate Nausea and Verified 03/02/24 13:47 Vomiting ketorolac [From Toradol] AdvReac Intermediate Palpitation Verified 03/02/24 13:47 s levofloxacin [From Levaquin] AdvReac Intermediate Chest Pain Verified 03/02/24 13:47 nitrofurantoin AdvReac Intermediate Chest Pain Verified 03/02/24 13:47 [From Macrobid] Penicillins AdvReac Intermediate Chest Pain Verified 03/02/24 13:47 Sulfa (Sulfonamide AdvReac Intermediate Chest Pain Verified 03/02/24 13:47 Antibiotics) vancomycin AdvReac Intermediate Chest Pain Verified 03/02/24 13:47 acetaminophen AdvReac Mild Hives Verified 03/02/24 13:47 clindamycin AdvReac Mild Hives Verified 03/02/24 13:47 gadobenic acid AdvReac Mild Hives Verified 03/02/24 13:47 [From contrast - MRI] hydrocodone AdvReac Mild Hives Verified 03/02/24 13:47 iohexol AdvReac Mild Hives Verified 03/02/24 13:47 [From contrast - CT, X-RAY] latex AdvReac Mild RASH-CONDOMS Verified 03/02/24 13:47 AND GLOVES lubiprostone [From Amitiza] AdvReac Mild Itching Verified 03/02/24 13:47 paroxetine [From Paxil] AdvReac Mild Hives Verified 03/02/24 13:47 propoxyphene AdvReac Mild Itching Verified 03/02/24 13:47 [From Darvocet-N 100] Review of Systems Review of Systems: CONSTITUTIONAL: Denies fever, chills, or sweats. CARDIOVASCULAR: Denies chest pain, palpitations, or edema. RESPIRATORY: Denies cough or dyspnea. GASTROINTESTINAL: Denies abdominal pain, nausea, vomiting, or diarrhea. GENITOURINARY: Reports dysuria, frequency, urgency. Denies flank pain or hematuria. SKIN: Denies rash or itching. MUSCULOSKELETAL: Denies back pain or myalgia. Denies CVA tenderness NEUROLOGIC: Denies headache All systems reviewed & are unremarkable except as noted in HPI and below PMFSH Past Medical History Medical History Anxiety Bronchitis Constipation Depression Family history of malignant neoplasm of colon in father Genitourinary disorder Interstitial cystitis, urethral dilation GERD (gastroesophageal reflux disease) Interstitial cystitis Irritable bowel syndrome Irritable bowel syndrome with constipation Mitral valve prolapse Right hand fracture Urinary tract infection Vaginal delivery Surgical History Surgical History H/O hemorrhoidectomy H/O sinus surgery H/O tubal ligation H/O umbilical hernia repair History of facial surgery Nasal reconstruction History of hysterectomy History of orthopedic surgery Right knee, trigger release finger left hand History of tonsillectomy History of urinary tract surgery Family History Family History Grandparent Diabetes mellit
--- NOTE | 2024-03-03 08:55 | ED.FEMALEGU ---
HPI - Female Genitourinary General Chief complaint: Urogenital-Female Stated complaint: bladder issues Time Seen by Provider: 03/02/24 13:40 Source: patient, RN notes reviewed and old records reviewed Mode of arrival: ambulatory Limitations: no limitations History of Present Illness HPI Narrative: 49 year old female presents to [facility] care with complaints of 'blader issues' for the past 3-4 days which include burning frequency and bladder spasms. Patient reports that she has been drinking lots of water though specific gravity is 1.030. She reports that she drinks 4-5 bottles of water daily, instructed patient she should be drinking 6-8 bottles of water daily to maintain her hydration. denies any soda intake.Patient denies any fevers chills or sweats, denies any suprapubic pain or any CVA tenderness. Patient reports no vaginal discharge or any concern for STD's. MD elicited complaint: UTI Pertinent past history: interstitial cystits Onset (ago): day(s) (3-4) Location of symptoms: urethra Severity scale (1-10): 4 Quality of pain: burning and other (spasms) Vaginal discharge: none Treatment prior to arrival: none Related Data Home Medications Medication Instructions Recorded Confirmed No Home Medications 02/14/24 03/02/24 Allergies Allergy/AdvReac Type Severity Reaction Status Date / Time amoxicillin AdvReac Intermediate Chest Pain Verified 03/02/24 13:47 codeine AdvReac Intermediate Nausea and Verified 03/02/24 13:47 Vomiting ketorolac [From Toradol] AdvReac Intermediate Palpitation Verified 03/02/24 13:47 s levofloxacin [From Levaquin] AdvReac Intermediate Chest Pain Verified 03/02/24 13:47 nitrofurantoin AdvReac Intermediate Chest Pain Verified 03/02/24 13:47 [From Macrobid] Penicillins AdvReac Intermediate Chest Pain Verified 03/02/24 13:47 Sulfa (Sulfonamide AdvReac Intermediate Chest Pain Verified 03/02/24 13:47 Antibiotics) vancomycin AdvReac Intermediate Chest Pain Verified 03/02/24 13:47 acetaminophen AdvReac Mild Hives Verified 03/02/24 13:47 clindamycin AdvReac Mild Hives Verified 03/02/24 13:47 gadobenic acid AdvReac Mild Hives Verified 03/02/24 13:47 [From contrast - MRI] hydrocodone AdvReac Mild Hives Verified 03/02/24 13:47 iohexol AdvReac Mild Hives Verified 03/02/24 13:47 [From contrast - CT, X-RAY] latex AdvReac Mild RASH-CONDOMS Verified 03/02/24 13:47 AND GLOVES lubiprostone [From Amitiza] AdvReac Mild Itching Verified 03/02/24 13:47 paroxetine [From Paxil] AdvReac Mild Hives Verified 03/02/24 13:47 propoxyphene AdvReac Mild Itching Verified 03/02/24 13:47 [From Darvocet-N 100] Review of Systems Review of Systems: CONSTITUTIONAL: Denies fever, chills, or sweats. CARDIOVASCULAR: Denies chest pain, palpitations, or edema. RESPIRATORY: Denies cough or dyspnea. GASTROINTESTINAL: Denies abdominal pain, nausea, vomiting, or diarrhea. GENITOURINARY: Reports dysuria, frequency, bladder spasms Denies flank pain or hematuria. SKIN: Denies rash or itching. MUSCULOSKELETAL: Denies back pain or myalgia. Denies CVA tenderness NEUROLOGIC: Denies headache All systems reviewed & are unremarkable except as noted in HPI and below PMFSH Past Medical History Medical History Anxiety Bronchitis Constipation Depression Family history of malignant neoplasm of colon in father Genitourinary disorder Interstitial cystitis, urethral dilation GERD (gastroesophageal reflux disease) Interstitial cystitis Irritable bowel syndrome Irritable bowel syndrome with constipation Mitral valve prolapse Right hand fracture Urinary tract infection Vaginal delivery Surgical History Surgical History H/O hemorrhoidectomy H/O sinus surgery H/O tubal ligation H/O umbilical hernia repair History of facial surgery Nasal reconstruction History of hysterectomy History of orthopedic s
== END 2024-03-02 14:05 | disposition home or self-care (01) ==
PROVIDERS: Emergency Provider Registered Nurse
DX: R30.0 Dysuria (principal); Z87.891 Personal history of nicotine dependence; K21.9 Gastro-esophageal reflux disease without esophagitis; I34.1 Nonrheumatic mitral (valve) prolapse
CPT/HCPCS: 81003; 99212; G0463

== ENCOUNTER 2024-03-08 17:52 | Emergency (ER) | payer BC, SELFPAY ==
[2024-03-08 18:02] VITALS: BP 118/85; PULSE 76; RESP 16; TEMP 37.8; O2SAT 99
--- NOTE | 2024-03-08 18:26 | ED.GENADULT ---
HPI - General Adult General Chief complaint: Urogenital-Female Stated complaint: Urinary Problem Source: patient, RN notes reviewed and old records reviewed Mode of arrival: ambulatory Limitations: no limitations History of Present Illness HPI narrative: 49-year-old female presents to [facility] with complaints of burning with urination. Patient denies any other symptoms. Patient states she is wanting to have her urine checked to be sure she does have UTI. Related Data Home Medications Medication Instructions Recorded Confirmed No Home Medications 02/14/24 03/02/24 Allergies Allergy/AdvReac Type Severity Reaction Status Date / Time amoxicillin AdvReac Intermediate Chest Pain Verified 03/02/24 13:47 codeine AdvReac Intermediate Nausea and Verified 03/02/24 13:47 Vomiting ketorolac [From Toradol] AdvReac Intermediate Palpitation Verified 03/02/24 13:47 s levofloxacin [From Levaquin] AdvReac Intermediate Chest Pain Verified 03/02/24 13:47 nitrofurantoin AdvReac Intermediate Chest Pain Verified 03/02/24 13:47 [From Macrobid] Penicillins AdvReac Intermediate Chest Pain Verified 03/02/24 13:47 Sulfa (Sulfonamide AdvReac Intermediate Chest Pain Verified 03/02/24 13:47 Antibiotics) vancomycin AdvReac Intermediate Chest Pain Verified 03/02/24 13:47 acetaminophen AdvReac Mild Hives Verified 03/02/24 13:47 clindamycin AdvReac Mild Hives Verified 03/02/24 13:47 gadobenic acid AdvReac Mild Hives Verified 03/02/24 13:47 [From contrast - MRI] hydrocodone AdvReac Mild Hives Verified 03/02/24 13:47 iohexol AdvReac Mild Hives Verified 03/02/24 13:47 [From contrast - CT, X-RAY] latex AdvReac Mild RASH-CONDOMS Verified 03/02/24 13:47 AND GLOVES lubiprostone [From Amitiza] AdvReac Mild Itching Verified 03/02/24 13:47 paroxetine [From Paxil] AdvReac Mild Hives Verified 03/02/24 13:47 propoxyphene AdvReac Mild Itching Verified 03/02/24 13:47 [From Darvocet-N 100] Review of Systems Constitutional: Constitutional: Reports no additional constitutional complaints, Denies body ache(s), Denies chills, Denies fatigue, Denies fever(s) and Denies headache(s) Eyes: Eyes: Reports no additional eye complaints and Denies blurry vision ENT: Reports system reviewed and no additional complaints, except as documented, Denies vertigo, Denies dizziness, Denies ear discharge, Denies otalgia, Denies facial pain, Denies headache(s), Denies nasal congestion, Denies nasal discharge, Denies sinus pain, Denies sinus pressure and Denies sore throat Cardiovascular: Cardiovascular: Reports no additional cardiovascular complaints, Denies chest pain, Denies chest pain at rest, Denies rapid heart rate and Denies dyspnea Respiratory: Respiratory: Reports no additional respiratory complaints, Denies chest congestion, Denies cough, Denies pain on inspiration, Denies pain with cough and Denies dyspnea Gastrointestinal: Gastrointestinal: Denies abdominal pain, Denies diarrhea, Denies nausea and Denies vomiting Genitourinary: Genitourinary: Reports as per HPI and Reports dysuria Integumentary/Breasts: Skin/Breast: Denies rash Neurologic: Reports system reviewed and no additional complaints, except as documented, Denies vertigo, Denies dizziness and Denies headache(s) Endocrine: Endocrine: Denies fatigue [facility] Past Medical History Medical History Anxiety Bronchitis Constipation Depression Family history of malignant neoplasm of colon in father Genitourinary disorder Interstitial cystitis, urethral dilation GERD (gastroesophageal reflux disease) Interstitial cystitis Irritable bowel syndrome Irritable bowel syndrome with constipation Mitral valve prolapse Right hand fracture Urinary tract infection Vaginal delivery Surgical History Surgical History H/O hemorrhoidectomy H/O sinus surgery H/O tubal ligation H/O
== END 2024-03-08 18:33 | disposition home or self-care (01) ==
PROVIDERS: Emergency Provider Registered Nurse
DX: N30.10 Interstitial cystitis (chronic) without hematuria (principal); Z87.891 Personal history of nicotine dependence; K21.9 Gastro-esophageal reflux disease without esophagitis; I34.1 Nonrheumatic mitral (valve) prolapse
CPT/HCPCS: 81003; 99212; G0463

== ENCOUNTER 2024-03-13 11:41 | Emergency (ER) | payer BC, SELFPAY ==
[2024-03-13 11:46] VITALS: BP 120/84; PULSE 70; RESP 16; TEMP 36.8; O2SAT 100
--- NOTE | 2024-03-13 11:50 | ED.GENADULT ---
HPI - General Adult General Chief complaint: Urogenital-Female Stated complaint: bladder prob, lt finger bleeding Source: patient, RN notes reviewed and old records reviewed Mode of arrival: ambulatory Limitations: no limitations History of Present Illness HPI narrative: 49-year-old female presents to [facility] with complaints urinary frequency, urgency and dysuria that started 1 week ago. Patient also complaining laceration to left index finger. Patient states was cleaning in the attic and cough finger on something 2 days ago, patient states can not get take quit bleeding Related Data Home Medications Medication Instructions Recorded Confirmed fluticasone propionate 50 intranasal 03/13/24 mcg/actuation nasal spray,suspension Allergies Allergy/AdvReac Type Severity Reaction Status Date / Time amoxicillin AdvReac Intermediate Chest Pain Verified 03/13/24 11:48 codeine AdvReac Intermediate Nausea and Verified 03/13/24 11:48 Vomiting ketorolac [From Toradol] AdvReac Intermediate Palpitation Verified 03/13/24 11:48 s levofloxacin [From Levaquin] AdvReac Intermediate Chest Pain Verified 03/13/24 11:48 nitrofurantoin AdvReac Intermediate Chest Pain Verified 03/13/24 11:48 [From Macrobid] Penicillins AdvReac Intermediate Chest Pain Verified 03/13/24 11:48 Sulfa (Sulfonamide AdvReac Intermediate Chest Pain Verified 03/13/24 11:48 Antibiotics) vancomycin AdvReac Intermediate Chest Pain Verified 03/13/24 11:48 acetaminophen AdvReac Mild Hives Verified 03/13/24 11:48 clindamycin AdvReac Mild Hives Verified 03/13/24 11:48 gadobenic acid AdvReac Mild Hives Verified 03/02/24 13:47 [From contrast - MRI] hydrocodone AdvReac Mild Hives Verified 03/02/24 13:47 iohexol AdvReac Mild Hives Verified 03/02/24 13:47 [From contrast - CT, X-RAY] latex AdvReac Mild RASH-CONDOMS Verified 03/02/24 13:47 AND GLOVES lubiprostone [From Amitiza] AdvReac Mild Itching Verified 03/02/24 13:47 paroxetine [From Paxil] AdvReac Mild Hives Verified 03/02/24 13:47 propoxyphene AdvReac Mild Itching Verified 03/02/24 13:47 [From Darvocet-N 100] Review of Systems Constitutional: Constitutional: Reports no additional constitutional complaints, Denies body ache(s), Denies chills, Denies fatigue, Denies fever(s) and Denies headache(s) Eyes: Eyes: Reports no additional eye complaints and Denies blurry vision ENT: Reports system reviewed and no additional complaints, except as documented, Denies vertigo, Denies dizziness, Denies ear discharge, Denies otalgia, Denies facial pain, Denies headache(s), Denies nasal congestion, Denies nasal discharge, Denies sinus pain, Denies sinus pressure and Denies sore throat Cardiovascular: Cardiovascular: Reports no additional cardiovascular complaints, Denies chest pain, Denies chest pain at rest, Denies rapid heart rate and Denies dyspnea Respiratory: Respiratory: Reports no additional respiratory complaints, Denies chest congestion, Denies cough, Denies pain on inspiration, Denies pain with cough and Denies dyspnea Gastrointestinal: Gastrointestinal: Denies abdominal pain, Denies diarrhea, Denies nausea and Denies vomiting Integumentary/Breasts: Skin/Breast: Denies rash Neurologic: Reports system reviewed and no additional complaints, except as documented, Denies vertigo, Denies dizziness and Denies headache(s) Endocrine: Endocrine: Denies fatigue PMFSH Past Medical History Medical History Anxiety Bronchitis Constipation Depression Family history of malignant neoplasm of colon in father Genitourinary disorder Interstitial cystitis, urethral dilation GERD (gastroesophageal reflux disease) Interstitial cystitis Irritable bowel syndrome Irritable bowel syndrome with constipation Mitral valve prolapse Right hand fracture Urinary tract infection Vaginal delivery Surgical History Surgical History (Reviewed 03/08/24 @ 1
--- NOTE | 2024-03-13 11:53 | PC.NURSE ---
1149 in br to obtain ua spec.
== END 2024-03-13 12:13 | disposition home or self-care (01) ==
PROVIDERS: Emergency Provider Registered Nurse
DX: N30.10 Interstitial cystitis (chronic) without hematuria (principal); S61.201A Unspecified open wound of left index finger without damage to nail, initial encounter; X58.XXXA Exposure to other specified factors, initial encounter; Z87.891 Personal history of nicotine dependence; K21.9 Gastro-esophageal reflux disease without esophagitis; I34.1 Nonrheumatic mitral (valve) prolapse
CPT/HCPCS: 81003; 99213; G0463

== ENCOUNTER 2024-07-06 08:33 | Emergency (ER) | payer BC, SELFPAY ==
[2024-07-06 08:42] VITALS: BP 100/75; PULSE 68; RESP 20; TEMP 36.7; O2SAT 100
--- NOTE | 2024-07-06 09:06 | ED.FEMALEGU ---
HPI - Female Genitourinary General Chief complaint: Urogenital-Female Stated complaint: bladder History of Present Illness HPI Narrative: Patient presents with chronic urinary tract infection symptoms and history of interstitial cystitis. Patient states she has burning with urination and urgency. No suprapubic pain no flank pain no gross hematuria. No concern for STDs. Related Data Home Medications Medication Instructions Recorded Confirmed No Home Medications 07/06/24 07/06/24 Allergies Allergy/AdvReac Type Severity Reaction Status Date / Time amoxicillin AdvReac Intermediate Chest Pain Verified 07/06/24 09:08 codeine AdvReac Intermediate Nausea and Verified 07/06/24 09:08 Vomiting ketorolac [From Toradol] AdvReac Intermediate Palpitation Verified 07/06/24 09:08 s levofloxacin [From Levaquin] AdvReac Intermediate Chest Pain Verified 07/06/24 09:08 nitrofurantoin AdvReac Intermediate Chest Pain Verified 07/06/24 09:08 [From Macrobid] Penicillins AdvReac Intermediate Chest Pain Verified 07/06/24 09:08 Sulfa (Sulfonamide AdvReac Intermediate Chest Pain Verified 07/06/24 09:08 Antibiotics) vancomycin AdvReac Intermediate Chest Pain Verified 07/06/24 09:08 acetaminophen AdvReac Mild Hives Verified 07/06/24 09:08 clindamycin AdvReac Mild Hives Verified 07/06/24 09:08 gadobenic acid AdvReac Mild Hives Verified 07/06/24 09:08 [From contrast - MRI] hydrocodone AdvReac Mild Hives Verified 07/06/24 09:08 iohexol AdvReac Mild Hives Verified 07/06/24 09:08 [From contrast - CT, X-RAY] latex AdvReac Mild RASH-CONDOMS Verified 07/06/24 09:08 AND GLOVES lubiprostone [From Amitiza] AdvReac Mild Itching Verified 07/06/24 09:08 paroxetine [From Paxil] AdvReac Mild Hives Verified 07/06/24 09:08 propoxyphene AdvReac Mild Itching Verified 07/06/24 09:08 [From Darvocet-N 100] Review of Systems Review of Systems: CONSTITUTIONAL: Denies fever, chills, or sweats. EYES: Denies visual changes, redness, or discharge. ENT: Denies rhinorrhea, congestion, sore throat, or otalgia. CARDIOVASCULAR: Denies chest pain, palpitations, or edema. RESPIRATORY: Denies cough or dyspnea. GASTROINTESTINAL: Denies abdominal pain, nausea, vomiting, or diarrhea. GENITOURINARY: Denies dysuria or hematuria. SKIN: Denies rash or itching. MUSCULOSKELETAL: Denies back pain, joint pain, or myalgia. NEUROLOGIC: Denies headache, numbness, or weakness. PSYCHIATRIC: Denies anxiety or depression. [facility] Past Medical History Medical History Anxiety Bronchitis Constipation Depression Family history of malignant neoplasm of colon in father Genitourinary disorder Interstitial cystitis, urethral dilation GERD (gastroesophageal reflux disease) Interstitial cystitis Irritable bowel syndrome Irritable bowel syndrome with constipation Mitral valve prolapse Right hand fracture Urinary tract infection Vaginal delivery Surgical History Surgical History H/O hemorrhoidectomy H/O sinus surgery H/O tubal ligation H/O umbilical hernia repair History of facial surgery Nasal reconstruction History of hysterectomy History of orthopedic surgery Right knee, trigger release finger left hand History of tonsillectomy History of urinary tract surgery Family History Family History Grandparent Diabetes mellitus, Onset Age: 200 Cerebrovascular accident, Onset Age: 200 Father Family history of elevated blood lipids Carcinoma of colon Family history of coronary artery disease, Onset Age: 201 Patient's father is Grandparent Family history of malignant neoplasm Diabetes mellitus Cerebrovascular accident Hypertension Family history of cardiovascular disease Father Family history of congestive heart failure Patient's father is
[2024-07-06 09:08] LABS: EDUAAPPEAR Clear; EDUABILI Negative; EDUABLOOD Trace; EDUACOLOR1 Yellow; EDUAGLUCOSE Negative; EDUAKETONE Negative; EDUALEUKO Negative; EDUANITRATE Negative; EDUAPH 5.5; EDUAPROTEIN Negative; EDUAUROBILI 0.2
== END 2024-07-06 09:10 | disposition home or self-care (01) ==
PROVIDERS: Emergency Provider Nurse Practitioner Family
DX: N30.90 Cystitis, unspecified without hematuria (principal); Z87.891 Personal history of nicotine dependence; K21.9 Gastro-esophageal reflux disease without esophagitis; I34.1 Nonrheumatic mitral (valve) prolapse
CPT/HCPCS: 81003; 87086; 87088; 99213; G0463

== ENCOUNTER 2025-05-05 08:04 | Emergency (ER) | payer BC, SELFPAY ==
--- OUTSIDE RECORDS SUMMARY | 2025-05-05 08:08 | XMS_ITS | Clinical Summary ---
Author Organization [facility] Address [address] [place] [address] Care Team Providers Care Cardiovascular Radiologic Technologist Name Role Phone Aryan Justice ARANGO Unavailable Agatha Quiñones NP Primary Care Provider [phone] Allergies Active Allergy Reactions Criticality Noted Date Comments Acetaminophen Hives,Rash Medium Alprazolam Shortness of breath High Amoxicillin Shortness of breath,Itching High Ampicillin Hives Medium Chlordiazepoxide Unknown Trade Name Librium Clindamycin Hives Medium 10/27/2013 Codeine Anxiety Medium Diphenhydramine-Acetamino phen Nausea & Vomiting Low Erythromycin Hives Medium Iodinated Contrast Media Hives,Rash Medium 11/12/2018 Iodine Hives Medium 02/12/2017 Other reaction(s): Hives Pt states only injectable contrast dye. Pt states can have betadine prep Ketorolac Shortness of breath,Chest tightness High Latex Rash Medium Levofloxacin Rash,Hives Medium 11/21/2011 Levaquin Hives Morphine Unknown 02/12/2017 Nitrofurantoin Monohyd/M-Cryst Hives Medium 02/05/2016 Paroxetine Other (See comments) Low Paxil pass out Paroxetine Hcl Syncope High 06/15/2022 Penicillins Hives,Rash Medium Potassium Nausea & Vomiting Low Propoxyphene Hives Medium Sertraline Other (See comments) Low Pass out Sulfa (Sulfonamide Antibiotics) Rash Medium Sulfanilamide Hives Medium Vancomycin Shortness of breath,Chest tightness High Medications fluticasone propionate (FLONASE) 50 mcg/actuation nasal sprayIndication s:Postnasal drip Administer 2 sprays into each nostril daily 1 each 4 Active Additional Information Patient not taking.Reported on 03/04/2024 polyethylene glycol 236-22.74-6.74 -5.86 gram solution MIX AND DRINK FIRST HALF OF THE SOLUTION 8 OZ. AT A TIME EVERY 10 MINUTES ON DAY 1, THEN REPEAT THE SAME REGIMINE ON DAY 2. MAY REPEAT EVERY WEEK 4 Active Active Problems Problem Noted Date Diagnosed Date Dyspareunia, female 01/20/2024 Assessment & Plan (01/20/2024 10:58 AM CLOTH MERCERIZER BACK TENDER): Discussed diagnosis. Patient does not want HRT including vaginal estrogen cream. Does not like lubricants. Screening for thyroid disorder 01/20/2024 Assessment & Plan (01/20/2024 10:59 AM CLOTH MERCERIZER BACK TENDER): TSH ordered to be done before annual physical in May Screening, anemia, deficiency, iron 01/20/2024 Assessment & Plan (01/20/2024 10:59 AM CLOTH MERCERIZER BACK TENDER): Labs ordered for before annual physical in May Screening for lipid disorders 01/20/2024 Assessment & Plan (01/20/2024 10:59 AM CLOTH MERCERIZER BACK TENDER): Lipid panel ordered for May Screening for diabetes mellitus 01/20/2024 Assessment & Plan (01/20/2024 10:59 AM CLOTH MERCER[employer]ER BACK TENDER): CMP ordered before annual physical in May Acute otitis media 01/13/2024 Asthma 01/13/2024 Assessment & Plan (01/20/2024 10:57 AM CLOTH MERCERIZER BACK TENDER): Patient denies any shortness of breath. States she has not had any problems with her asthma in a long time. Chronic recurrent sinusitis 01/13/2024 Cough 01/13/2024 Disorder of shoulder 01/13/2024 Dizziness 01/13/2024 Injury of forearm 01/13/2024 Low back pain 01/13/2024 Numbness and tingling sensation of skin 01/13/20 Otalgia of both ears 01/13/2024 Acute pelvic pain 01/13/2024 Pain in female pelvis 01/13/2024 Poor short-term memory 01/13/2024 Sexually transmitted disease 01/13/2024 Sleep disorder 01/13/2024 Tinea pedis 01/13/2024 Weight loss 08/16/2023 Closed fracture of right ankle 08/10/2023 LUQ abdominal pain 05/07/2023 Noninfectious gastroenteritis 04/21/2023 Heartburn 04/04/2023 Early satiety 04/04/2023 Shortness of breath 02/07/2023 03/12/2023 Microscopic hematuria 02/06/2023 03/12/2023 Increased frequency of urination 02/06/2023 03/12/2023 Elevated amylase 10/28/2022 Assessment & Plan (10/28/2022 12:52 PM CLOTH MERCER[employer]ER BACK TENDER): -per patient. Previous lipase from 10/11 noted to be normal. Discussed the pathophysiology of amylase elevation. Given the history of partial small bowel obstruction it is possible that the amylase elevation was secondary to that. It does not appear that she has any evidence of acute pancreatitis. She was reassured regarding this. Thrombocytopenia 09/24/2022 Assessment & Plan (05/22/2023 3:50 PM CDT): Reassurance provided to patient, will recheck in 4 weeks. Anxiety 09/24/2022 Assessment & Plan (09/24/2022 8:47 AM CLOTH MERCERIZER BACK TENDER): Does not want to have this treated but states that she was doing conuseling and keeping track of her triggers Mood disorder 09/24/2022 Assessment & Plan (05/22/2023 3:51 PM CDT): Patient agreeable to Psychiatry, I agree with patient and do suspect an ADHD component. Referral placed. S/P hysterectomy 09/24/2022 Assessment & Plan (01/20/2024 11:00 AM CLOTH MERCER[employer]ER BACK TENDER): Patient has intact ovaries, which are likely gradually failing over time and causing vaginal dryness and dyspareunia. Partial small bowel obstruction 08/20/2022 Bleeding external hemorrhoids 03/12/2022 Irritable bowel syndrome with constipation 02/27 Assessment & Plan (10/28/2022 12:51 PM CLOTH MERCERIZER BACK TENDER): -ongoing for years. Previously followed by a assembler musical instruments. + prior colonoscopy. No anemia. Normal menstruation. No history of melena or hematochezia. No family history of colon cancer. No family history of IBD. No weight changes. No relief with use of [id number] laxatives. Patient is however not willing to try any of my suggestions. I recommended that we will try soluble fiber supplementation. However she states that the that makes her feel worse. Also recommended her to try Linzess or Trulance. However she does not want that. She reports that she wants to manage it without any medications. I stated that without any medications it will be extremely hard for me to manage her symptoms. She wants a particular brand of PEG. Will give her that. Since she does not want any pharmacotherapy from me, will give her referral to [facility] for further evaluation and management. Pelvic floor weakness in female 02/27/2022 Mild intermittent asthma 02/06/2022 Obesity 02/06/2022 Right lower quadrant pain 01/30/2022 Assessment & Plan (04/29/2023 12:49 PM CDT): 2 IBS-C, no obstruction on CT and KUB 04/2023. Previous flex sig from 12/2022 showed acute colitis in rectosigmoid colon, negative stool culture and infectious work up, repeat flex sig from 03/2023 showed benign mucosa with mild nonspecific superficial lamina propria hemorrhage. Unable to reach the cecum due to solid stool in the descending colon. Follow-up colonoscopy a week later again showed significant amount of stool and unable to pass beyond the hepatic flexure. Trial of trulance. Reschedule colonoscopy with 2 days of GoLYTELY and clear liquid diet to evaluate for colitis. Assessment & Plan (03/24/2023 3:38 PM CDT): Not at goal, has upcoming appointment with Dr Baeza (GI) on 03/28/23 Pt has been referred to compression molding machine setter who tests for drug allergies so we may be able to take some allergies off her list. Assessment & Plan (09/24/2022 8:44 AM CLOTH MERCERIZER BACK TENDER): Following with GI - as per previous notes no organic GI pathology - could be msk vs constipation. Last kub showed constipation Assessment & Plan (04/21/2022 7:47 PM CDT): Chronic lower abdominal pain, no organic GI pathology noted. Likely musculoskeletal. Will try Flexeril at night. Follow up 3 months. Acquired trigger finger 01/30/2022 Blood in urine 01/30/2022 Disorder of skin or subcutaneous tissue 01/31/20 22 Leukorrhea 01/30/2022 Radiotherapy follow-up 01/30/2022 Reduced libido 01/30/2022 Vulvitis 01/30/2022 Sprain of foot 01/30/2022 Infectious colitis 01/30/2022 Intermittent diarrhea 01/30/2022 Lower abdominal pain 01/30/2022 Yeast UTI 01/22/2022 Family history of colon cancer in father 021 Bloating 04/03/2021 Weight gain 04/03/2021 Functional constipation 04/03/2021 Overview (01/13/2024): PT [facility] Assessment & Plan (04/29/2023 12:50 PM CDT): 2/2 IBS and pelvic floor dyssynergia. Went to ED twice this week with RUQ pain, worse with eating, took golytely but still not relieving constipation and pain. Previously tried linzess, bentyl, amitiza, miralax, fiber, ibsrela, motegrity, felt like golytely used to help the most but not really helping much anymore Most recent CT from ED visit on 04/28 showed moderate to large stool burden and diminutive nonobstructing left kidney stones. Labs from 04/28/2023 showed normal CMP, CBC, lipase, Had two colonoscopy attempts since last office visit unable to reach cecum due to significant amount of stool after doing only 1 day of prep. Now patient is willing to try two days of golytely split prep. She has been evaluated by multiple GI providers in the past and has numerous abdominal imaging and endoscopies Most recent EGD from 04/10/2023 showed mild chronic inactive gastritis and normal duodenal biopsies. One tubular adenoma was found in the descending colon with normal rectal sigmoid biopsies Per chart review was previously diagnosed with pelvic floor dyssynergia and underwent pelvic floor physical therapy with some relief. Plan Trial of trulance 3mg daily Refer for pelvic floor PT 2 day golytely split prep for colonoscopy Assessment & Plan (09/24/2022 8:49 AM CLOTH MERCERIZER BACK TENDER): Following with GI Assessment & Plan (04/21/2022 7:46 PM CDT): She manages with Golytely drink full gallon every couple weeks and happy with this so will continue the same. Rectal bleeding 04/05/2020 Overview (04/05/2020): Added automatically from request for surgery [id number] Assessment & Plan (04/05/2020 3:02 PM CDT): Pt had hemorrhoidectomy Oct 2019. No bleeing for 2 months but started to have issues with IBS-C and noticed she started to have blood with BM's again. Occurs with almost every BM and in large amounts. Upon exam, noted 2 smaller (grade I) and 1 larger (grade II) external hemorrhoids. Area appears to have healed well after surgery. Pt does have father who had colon cancer and due to persistent bleeding will do colonoscopy. Could possibly do IRC if internal hemorrhoids are large. Her last one was 03/2017. Family history of colon cancer 04/05/2020 Assessment & Plan (04/05/2020 3:01 PM CDT): Father had colon cancer in his 70's. Overweight with body mass index (BMI) 25.0-29.9 04/05/2020 Assessment & Plan (01/20/2024 10:55 AM CLOTH MERCERIZER BACK TENDER): BMI 26.56 Patient tries to actively manage her weight with a healthy diet and routine exercise Sinusitis 12/25/2019 Upper respiratory tract infection 11/05/2019 Grade III hemorrhoids 09/14/2019 Assessment & Plan (09/14/2019 11:13 AM CDT): Pt called in Anusol to use. Pt says she prefers the suppositories. Will call these in. I told patient that usually insurance does not cover these so will also call in cream in case suppositories are too expensive. Pt should use this along with Sitz baths. She should follow up as needed. Other irritable bowel syndrome 05/04/2019 Assessment & Plan (05/04/2019 4:03 PM CDT): Patient is highly sensitive for foods and she is currently on low wheat and low- fiber diet which seems to be tolerated. Her functional symptoms of bloating and gas are likely of related to her food. No worrisome signs. She will continue to use GoLYTELY preparation for constipation as needed as she did for many years. Gastroesophageal reflux disease without esophagi tis 05/04/2019 Assessment & Plan (05/22/2023 3:53 PM CDT): Patient notes she has failed PPI therapy and most recently Pepcid trial per GI. Will get the Gastrin lab for patient although it likely won't be overly helpful on my end. She should continue with GI appointment on 06/25 as planned. Assessment & Plan (10/28/2022 12:53 PM CLOTH MERCERIZER BACK TENDER): -discussed the pathophysiology of gastroesophageal reflux disease even with Radha fundoplication. Natural course of history of disease after the hiatal hernia surgery. Discussed the fact that she can still need medications even after the hiatal hernia surgery and with the upper endoscopy being normal. Assessment & Plan (05/04/2019 4:04 PM CDT): Patient has previous Radha fundoplication surgery and right now she does not require medications. Is are multiple. Chronic interstitial cystitis 12/17/2018 Overview (01/13/2024): Dr. Lobo - Urology Assessment & Plan (01/20/2024 10:54 AM CLOTH MERCERIZER BACK TENDER): Symptomatic today. UA unremarkable except for a trace of blood that patient reports is present chronically. Managed by Urology. Instructed to increase fluids. Assessment & Plan (03/24/2023 3:37 PM CDT): Patient had a cystoscopy recently per her Urologist that was normal. Has upcoming appointment with Dr Blanchard on 03/27/23. Incisional hernia, without obstruction or gangre ne 11/12/2018 Assessment & Plan (11/12/2018 10:52 AM CLOTH MERCERIZER BACK TENDER): Reducible, tender. May be the source of pain as it is so close to the umbilicus and patient cannot differentiate location pain. Umbilical pain 11/12/2018 Assessment & Plan (11/12/2018 10:53 AM CLOTH MERCERIZER BACK TENDER): Unable to feel defect but very tender, this also had repair x2. Will evaluate with CT for recurrence. No signs of incarceration. Ankle fracture, right 12/13/2016 Chronic ankle pain 12/13/2016 Equinus contracture of right ankle 12/13/2016 Stiffness of ankle joint 12/13/2016 Rheumatoid arthritis 11/24/2016 Overview (01/13/2024): bilateral feet Spasm of bladder 10/30/2016 Overview (01/13/2024): Dr. Naren Ventura - Urology Assessment & Plan (01/20/2024 10:55 AM CLOTH MERCERIZER BACK TENDER): Chronic symptom not related to any acute cystitis Urethral stricture 10/30/2016 Overview (01/13/2024): Dr. Naren Ventura - Urology Irritable bowel syndrome 10/30/2016 Overview (01/13/2024): Dr. Ventura - urology Assessment & Plan (01/20/2024 10:56 AM CLOTH MERCERIZER BACK TENDER): Patient reports that managing her diet has helped control the chronic diarrhea. She is being managed by Dr. Milligan at [facility] Assessment & Plan (04/09/2023 9:35 AM CDT): Pt following with Dr Baeza (GI), has endoscopy and colonoscopy scheduled for tomorrow. She was placed on Doxycycline trial for IBS-D/SIBO, she was unable to tolerate d/t upset stomach. Assessment & Plan (03/28/2023 3:26 PM CDT): Patient not the best historian, has pressure speech and is mainly concerned about what sounds like diarrhea predominance IBS. She is also very concerned about recent weight loss and not being able to gain weight despite eating 3-4 times a day after her mesh repair 07/2022. She was told she had acute colitis on colonoscopy from 12/2022, that time was also having bloody stools. She is very upset that she was never offered treatment for this colitis and is concerned she might have bacteria in her GI tract that is causing her symptoms Previous studies included normal CT from 01/2023, KUB 11/2022, upper GI series 02/2022 that small sliding hiatal hernia with no signs of reflux or esophageal dysmotility. Normal EGD with bx 12/2022, acute colitis from rectosigmoid colon on colonoscopy 12/2022 thought to be related to c diff or drugs Negative breath test for SIBO and methanogen overgrowth 11/2022 Plan Will do trial of rifaximin for IBS-D/SIBO, if cost too high then will do doxy instead for 14 days Get ESR, CRP, fecal calprotectin, stool culture, stool fat Assessment & Plan (03/13/2023 2:58 PM CDT): Discussed with patient that she will need to only see one GI provider, cannot be treated by multiple. She voices understanding, referral to Dr Baeza as pt requests. Hemorrhoids 10/28/2016 Overview (01/13/2024): Added automatically from request for surgery [id number] Assessment & Plan (04/05/2020 3:01 PM CDT): Grade I and II external hemorrhoids. Will give lidocaine to use on rectum prior to BM then apply prep H. 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 Overview (02/20/2017): Pineal gland cyst Resolved Problems Problem Noted Date Diagnosed Date Resolved Date Bacteriuria 05/17/2020 06/01/2020 Excessive flatus 09/16/2019 09/24/2022 Painful urination 06/23/2019 06/01/2020 E-coli UTI 12/17/2018 09/24/2022 Headache 04/20/2012 06/01/2020 Overview (02/20/2017): Headache Immunizations Immunization Administration Dates Next Due Influenza, Quadrivalent, Vidya l Culture-based MDCK, Preservative Free, Antibiotic Free, Intramuscular 09/08/2021,08/23/2019 Influenza, Quadrivalent, Spl it, Preservative Free, Intramuscular 08/11/2020 Influenza, Unspecified 01/20/2024(Deferr ed: Patient Refused),09/04/2023(Deferred: Patient Refused),11/17/2022(Deferred: Patient Refused),11/17/2021(Deferred: Patient Refused) PPD TEST 09/10/2016 Surgical History Surgery Date Site/Laterality Comments TUBAL LIGATION 11/17/2000 - 11/16/2001 Bilateral tubal ligation CHOLECYSTECTOMY 11/17/2004 - 11/16/2005 MA SEPTOPLASTY/SUBMUCOUS RESECJ W/WO CARTILAGE GRF 2013,2014 x2 KNEE SURGERY 11/17/1991 - 11/16/1992 Right LAPAROSCOPIC RADHA FUNDOPLICATION 11/17/2003 - 11/16/2004 TONSILLECTOMY AND ADENOIDECTOMY 11/17/2002 - 11/16/2003 Tonsillectomy UMBILICAL HERNIA REPAIR 2015, 2017 Umbilical Hernia Repair x 2 TRIGGER FINGER RELEASE 11/17/2017 - 11/16/2018 Left middle HEMORRHOID SURGERY 10/17/2019 - 11/16/2019 Dr. Navarro at [facility] SURGERY HYSTERECTOMY 11/17/2011 - 11/16/2012 Hysterectomy BREAST BIOPSY 11/17/2015 - 11/16/2016 Left benign, outpatient COLONOSCOPY 06/17/2022 - 07/17/2022 UPPER GASTROINTESTINAL ENDOSCOPY COLONOSCOPY 05/01/2023 Medical History Medical History Date Comments Irritable bowel syndrome Tension headache Gastroesophageal reflux disease resolved after Radha Post-operative nausea and vomiting Interstitial cystitis Pelvic floor dysfunction Family History Medical History Relation Name Comments Hypertension Brother Dad Hypertension; Cancer Father Dad Colon cancer Father Dad Cancer, colon; Heart disease Father Dad Heart disease; Hypertension Father Dad Hypertension; Stroke Maternal Grandmother Allergy (severe) Mother Mom PONV Mother Mom Cancer Other Family history of Cancer; Stroke Paternal Grandmother Relation Name Status Comments Brother Dad Alive Father Dad Maternal Grandmother Mother Mom Alive Other Paternal Grandmother Social History Tobacco Use Types Packs/Day Years Used Date Smoking Tobacco: Former Cigarettes Q uit: 07/06/2010 Passive Smoke Exposure: Past Smokeless Tobacco: Never Tobacco Cessation:Counseling Given: Not Answered Alcohol Use Standard Drinks/Week Comments No 0 (1 standard drink = 0.6 oz pur e alcohol) AUDIT-C Answer Date Recorded Q1: How often do you have a drink containing alcohol? Never 05/01/2023 Q2: How many drinks containi ng alcohol do you have on a typical day when you are drinking? Patient does not drink Q3: How often do you have si x or more drinks on one occasion? Never 05/01/2023 PHQ-2 Answer Date Recorded PHQ-2 Total Score (If total score is 3 or more points, staff should administer the PHQ-9) 3 01/20/2024 PHQ-9 Answer Date Recorded PHQ-9 Total Score 6 01/20/2024 Personal Safety Answer Date Recorded Have you ever been in or are you currently in a harmful physical or emotional relationship or is someone making you feel afraid or unsafe? Denies 08/25/2023 Comments No Sex and Gender Information Value Date Recorded Sex Assigned at Not on file Legal Sex Female 12:19 AM CLOTH MERCERIZER BACK TENDER Gender Identity Not on file Sexual Orientation Not on file Occupation Industry Job Start Date Job End Date Unemployed Not on file Not on file Not on file Obstetrics History Para Term AB IAB SAB Ectopic Multiple Livin g Live Births 3 1 1 2 2 1 1 Date Outcome GA Total Labor Labor/2nd/3rd Weight Sex Type Anes PTL Daniela A1 A5 Name Clin SAB SAB 2000 Term 3.629 kg (8 lb) M Vag-S pont Living Last Filed Vital Signs Vital Sign Reading Time Taken Comments Blood Pressure 110/70 03/04/2024 10:04 AM CDT Pulse 77 03/04/2024 10:04 AM CDT Temperature 36.6 C (97.9 F) 03/04/2024 10:04 AM CDT Respiratory Rate 20 03/04/2024 10:04 AM CDT Oxygen Saturation 97% 03/04/2024 10:04 AM CDT Inhaled Oxygen Concentration - - Weight 74.4 kg (164 lb) 03/04/2024 10:04 AM CDT Height 165.1 cm (5' 5) 02/18/2024 9:29 AM CDT Body Mass Index 27.29 02/18/2024 9:29 AM CDT Plan of Treatment Health Maintenance Due Date Last Done Comments DTaP/Tdap/Td Vaccine (1 - Tdap) 1988 Hepatitis B Screening 1995 Pneumococcal vaccine <65 (1 of 2 - PCV) 1996 Regular Well Visit/Exam 18-64 10/04/2023 10/04/2022, 12/01/2018 Covid-19 Vaccine (4 - 2023-2 5 season) 2024 12/02/2021, 06/01/2021, 05/11/2021 Breast Cancer Screening-Mammogram 10/03/2024 10/03/2023, 01/17/2022, 03/16/2021, Additional history exists Depression Screening 01/19/2025 01/20/2024, 01/20/2024, 05/22/2023, Additional history exists Influenza Vaccine (Season Ended) 2025 09/08/2021, 08/11/2020, 08/23/2019 Colon Cancer Screening-Colonoscopy 05/01/2033 05/01/2023, 04/15/2023, 04/24/2020, Additional history exists Hepatitis C Screening Completed 07/08/2019 Procedures Procedure Name Priority Date/Time Associated Diagnosis Comments SCREENING MAMMOGRAM BILATERAL W JOSE Schedule Routine, Read Routine (OP Routine) 10/03/2023 9:23 AM CLOTH MERCERIZER BACK TENDER Encounter for screening mammogram for malignant neoplasm of breast COLONOSCOPY 05/01/2023 10:01 AM CDT HEPATITIS C AB REFLEX RNA QUANT PCR Routine 07/08/2019 9:17 AM CDT from Last 3 Months or Most Recently Relevant to Health Maintenance Results * Screening Mammogram Bilateral W Jose (10/03/2023 9:23 AM CLOTH MERCERIZER BACK TENDER) Anatomical Region Laterality Modality Breast Bilateral Mammography Narrative 10/03/2023 1:15 PM CLOTH MERCERIZER BACK TENDER BILATERAL DIGITAL MAMMOGRAPHY The present examination has been compared to prior imaging studies dated 16 March 2021, 12 February 2019. Mammography Findings CAD (computer-aided detection) software was utilized. The breasts are extremely dense, which lowers the sensitivity of mammography. There is a oval circumscribed mass within the left breast 9:00 axis posterior depth, unchanged from comparison. No new masses, significant calcifications or other abnormalities are seen. There are biopsy clips within both breasts. Impression There is no mammographic evidence of malignancy. Screening mammogram in 1 year is recommended. BI-RADS Category 2: Benign. PATIENT LETTER SENT Deirdre Ji DO IMG MAMMO PROCEDURES Fi nal Result * COLONOSCOPY (05/01/2023 10:01 AM CDT) Anatomical Region Laterality Modality Other Narrative Procedure Note Justice Baeza MD - 05/01/2023 10:01 AM CDT [facility] Patient Name: Yaquelin Jauregui Procedure Date: 05/01/2023 10:01 AM Date of : 1975 Admit Type: Outpatient Age: 48 Gender: Female Attending MD: Justice Baeza M.D. Room: [facility] END[facility]COPY RO[facility] 2 Note Status: Finalized Patient Profile: This is a 48 year old female history of cholecystectomy, Radha fundopl ication, hemorrhoidectomy, hysterectomy, interstitial cystitis, IBS-C here for colonoscopy for evaluation of abdominal pain, weight loss and previouslynoted colitis on flex sig from 12/2022. Colonoscopy from 04/10/2023 showed solid stool in the descendingcolon, one 3 mm tubular adenoma as well as normal rectosigmoid colon biopsies. Patient declined doinga 2 day prep instead was only willing to do 1 day of GoLYTELY prior to colonoscopy on 04/15 which againwas poorly prepped. Today she is here for colonoscopy after 2 days of golytely and clear liquid diet. Procedure: Colonoscopy Indications: Last colonoscopy: March 2023, Abdominal pain in the right lower quadrant, Colitis, presumed infectious, IBS-C Referring MD: Lelia FaustNDrewP. Providers: Justice Baeza M.D. Impression: - Preparation of the colon was fair. - Hemorrhoids found on perianal exam. - Tortuous colon. - External and internal hemorrhoids. - The examination was otherwise normal. - No specimens collected. Recommendation: - Patient has a contact number available for emergencies. The signs and symptoms of potential delayed complications were discussed with thepatient. Return to normal activities tomorrow. Written discharge instructions were provided to thepatient. - Discharge patient to home (with escort). - Resume previous diet. - Continue present medications. - Repeat colonoscopy in 3 years for surveillancedue to fair prep and tortous colon. - Return to GI clinic as previously scheduled. Medicines: Monitored Anesthesia Care Complications: No immediate complications. Estimated Blood Loss: Estimated blood loss: none. Procedure: Pre-Anesthesia Assessment: - Prior to the procedure, a History and Physicalwas performed, and patient medications and allergieswere reviewed. The patient is competent. The risks and benefits of the procedure and the sedation optionsand risks were discussed with the patient. Allquestions were answered and informed consent was obtained. Patient identification and proposed procedure were verified by the physician, the gun fitter and the environmental field services technician in the endoscopy suite. Mental Status Examination: normal. Prophylactic Antibiotics: The patient does not require prophylactic antibiotics. Prior Anticoagulants: The patient has taken no anticoagulant or antiplatelet agents. ASA Grade Assessment: II - A patient with mild systemicdisease. After reviewing the risks and benefits, the patient was deemed in satisfactory condition to undergo the procedure. The anesthesia plan was to use monitored anesthesia care (MAC). Immediately prior to administration of medications, the patient was re-assessed for adequacy to receive sedatives. The heart rate, respiratory rate, oxygen saturations, blood pressure, adequacy of pulmonary ventilation,and response to care were monitored throughout the procedure. The physical status of the patient was re-assessed after the procedure. The benefits, risks and alternatives of theprocedure and sedation were discussed and informed consentwas obtained. All questions were answered. Please referto the signed informed consent document in the medical record. The bowel preparation used was Miralax via split dose instruction. The bowel preparation usedwas bisacodyl tablets via extended prep with split dose instruction. The scope was passed under directvision. The Pediatric Colonoscope PCF-H190L [id number] was introduced through the anus and advanced to the the cecum, identified by appendiceal orifice andileocecal valve. The colonoscopy was somewhat difficult dueto a tortuous colon. The patient tolerated the procedure well. The quality of the bowel preparation wasfair. Bowel prep was administered using a split dose. Findings: Hemorrhoids were found on perianal exam. The colon (entire examined portion) was moderately tortuous.Advancing the scope required changing the patient to a supine position andusing manual pressure. External and internal hemorrhoids were found during retroflexion. The exam was otherwise without abnormality. Justice Baeza M.D. 05/01/2023 1:16:49 PM Number of Addenda: 0 Note Initiated On: 05/01/2023 10:01 AM Procedure Code(s): --- Professional --- 14887, Colonoscopy, flexible; diagnostic, including collection of specimen(s) by brushing or washing, when performed (separateprocedure) --- Technical --- 29996, Colonoscopy, flexible; diagnostic, including collection of specimen(s) by brushing or washing, when performed (separateprocedure) Diagnosis Code(s): --- Professional --- K64.8, Other hemorrhoids R10.31, Right lower quadrant pain K52.9, Noninfective gastroenteritis and colitis, unspecified Q43.8, Other specified congenital malformations of intestine --- Technical --- K64.8, Other hemorrhoids R10.31, Right lower quadrant pain K52.9, Noninfective gastroenteritis and colitis, unspecified Q43.8, Other specified congenital malformations of intestine CPT copyright 2020 [employer]. All rights reserved. The codes documented in this report are preliminary and upon company laborer reviewmay be revised to meet current compliance requirements. Recognized by the [employer] for promoting quality in endoscopy Justice Baeza MD ENDOSCOPY PROCEDURES Final Resul t * Hepatitis C Antibody Reflex Hepatitis C RNA Quantitative PCR Blood (07/08/2019 9:17 AM CDT) Hep C Ab Negative Negative [facility] WOODRUFF ([place]) Comment:Testing performed by : [facility], [address] [place] [address], [place]., [address] Blood specimen (specimen) 07/08/2019 9:17 AM CDT 07/08/2019 2:18 PM CDT Lakia King AUTOMATION OPERATOR LAB MICROBIOLOGY - GENERAL OR DERABLES Final Result [facility] ([place]) [facility] [place] [address] from Last 3 Months or Most Recently Relevant to Health Maintenance [place] Advance [place]ives For more information, please contact: [phone] * Full Code (Latest Code Status on File) Date Activated Date Inactivated Comments 05/01/2023 9:57 AM 05/01/2023 6:26 PM * Full Code Date Activated Date Inactivated Comments 04/15/2023 11:56 AM 04/15/2023 6:22 PM * Full Code Date Activated Date Inactivated Comments 04/15/2023 11:56 AM 04/15/2023 11:56 AM * Full Code Date Activated Date Inactivated Comments 04/10/2023 8:25 AM 04/10/2023 4:15 PM * Full Code Date Activated Date Inactivated Comments 04/10/2023 8:25 AM 04/10/2023 8:25 AM Care Teams Cardiovascular Radiologic Technologist Relationship Specialty Start Date End Date Agatha Quiñones AUTOMATION OPERATOR [address] [place] [address] PCP - General Subassemblies Wirer 01/20/24 Justice Baeza MD [address] [place] [address] [address] [place] [address] Consulting Physician Gastroenterology 04/09/23
--- OUTSIDE RECORDS SUMMARY | 2025-05-05 08:08 | XMS_ITS | Encounter Summary ---
Author Organization [facility] Healthcare Address [address] [place] [address] Care Team Providers Care Professor Of Business Name Role Phone Eda Alvarez MD Primary Care Provider [phone] Dona Lamas MD Unavailable [phone] Mauri Dixon MD Primary Care Provider [phone] Mauri Dixon MD Primary Care Provider [phone] No, Physician Primary Care Provider [phone] No, Physician Primary Care Provider Lizeth Munguia NP Primary Care Provider + [phone] Raegan Mercado Primary Care Prov ider Will Briscoe DO Primary Care Provider [phone] Raegan Mercado Primary Care Prov ider Raegan Mercado Primary Care Prov ider Will Briscoe DO Primary Care Provider + [phone] Raegan Mercado Primary Care Prov ider Will Briscoe DO Primary Care Provider [phone] Cornelio Hernandez MD Primary Care Provider [phone] Anai Mullins MD Primary Care Provider [phone] Anai Mullins MD Primary Care Provider [phone] No, Physician Primary Care Provider [phone] Deirdre Bennett BELLMAKER Primary Care Provider [phone] Justice Baeza MD Unavailable Agatha Quiñones BELLMAKER Primary Care Provider [phone] Reason for Visit * Reason Onset Date Comments Scheduling Appointments 03/14/2021 Confirmi ng mammogram appt- no answer Encounter Details Date Type Department Care Team (Late st Contact Info) Description 03/14/2021 Telephone [facility] [address] [place], [place] [id number] Isabel Su RT Scheduling Appointments (Confirming mammogram appt- no answer) Social History Tobacco Use Types Packs/Day Years Used Date Smoking Tobacco: Former Cigarettes Q uit: 07/06/2010 Smokeless Tobacco: Never Alcohol Use Standard Drinks/Week Comments No 0 (1 standard drink = 0.6 oz pur e alcohol) Comments No Sex and Gender Information Value Date Recorded Sex Assigned at Not on file Legal Sex Female 12:19 AM ASSISTANT NEWS DIRECTOR Gender Identity Not on file Sexual Orientation Not on file documented as of this encounter Plan of Treatment Not on file documented as of this encounter Visit Diagnoses Not on filedocumented in this encounter Additional Health Concerns Infection Onset Date Last Indicated Resolved Time 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 Patient has no open wounds, chronic device sites and is not intubated or trached. 08/16/2022 08/16/2022 04/15/2023 2:21 PM C DT COVID: Suspected 11/16/2022 11/16/2022 11/16/2022 10:13 AM ASSISTANT NEWS DIRECTOR COVID19 11/16/2022 11/16/2022 11/26/2022 3:05 AM ASSISTANT NEWS DIRECTOR COVID: Recovered Comment:Added based on recent COVID infection. 11/26/2022 11/27/2022 02/24/2023 3:05 AM C DT COVID: Suspected 08/10/2023 08/10/2023 08/10/2023 9:04 AM CDT COVID: Suspected 01/13/2024 01/13/2024 01/13/2024 9:35 AM ASSISTANT NEWS DIRECTOR COVID: Suspected 02/18/2024 02/18/2024 02/18/2024 9:47 AM CDT documented as of this encounter Care Teams Professor Of Business Relationship Specialty Start Date End Date Eda Alvarez MD PCP - General 09/24/19 07/03/21 Mauri Dixon MD PCP - General 07/04/21 07/05/21 Mauri Dixon MD PCP - General 07/06/21 08/05/21 No, Physician PCP - General 08/09/21 02/05/22 No, Physician PCP - General 08/06/21 08/08/21 Lizeth Munguia NP [address] [place] [address] PCP - General Nurse Practitioner 02/06/22 06/13/22 Raegan Mercado PA [address] [place] [address] PCP - General 06/14/22 06/27/22 Will Briscoe DO [address] [facility] [place] [address] PCP - General Family Medicine 06/28/22 07/03/22 Raegan Mercado PA [address] [place] [address] PCP - General 07/04/22 07/04/22 Raegan Mercado PA [address] [place] [address] PCP - General 07/05/22 07/09/22 Will Briscoe DO [address] [place] [address] PCP - General Family Medicine 07/10/22 07/12/22 Raegan Mercado PA [address] [place] [address] PCP - General 07/13/22 07/29/22 Will Briscoe DO [address] [place] [address] PCP - General Family Medicine 07/30/22 09/23/22 Cornelio Hernandez MD [address] [place] [address] PCP - General Family Medicine 09/24/22 01/02/23 Anai Mullins MD [address] [place] [address] PCP - General Obstetrics and Gynecology 01/03/2312/19 Anai Mullins MD [address] [place] [address] PCP - General Obstetrics and Gynecology 01/08/2301/15 No, Physician PCP - General 01/30/23 03/11/23 Deirdre Bennett NP [facility] [address] [facility] [address] [place] [address] PCP - General Family Medicine 03/12/23 01/19/24 Agatha Quiñones NP [address] [facility] [address] [place] [address] PCP - General Interlocker Maintainer 01/20/24 Dona Lamas MD Referring Physician Gastroenterology 10/12/19 03/11/23 Justice Baeza MD [address] [place] [address] [address], [place] [address] Consulting Physician Gastroenterology 04/09/23 documented as of this encounter
--- OUTSIDE RECORDS SUMMARY | 2025-05-05 08:08 | XMS_ITS | Encounter Summary ---
Author Organization [facility] Address [address] [place] [address] Phone Care Team Providers Care Solid Waste Technician Name Role Phone Brian Lebron MD Primary Care Provider No, Physician Primary Care Provider Antonella Ivory SPORTS INFORMATION DIRECTOR Primary Care Provider [phone] No, Physician Primary Care Provider [phone] Char Chang DO Primary Care Provider + No, Physician Primary Care Provider [phone] Miscellaneous, Not In File Primary Care Provider Unavailable No, Physician Primary Care Provider Anaya Portillo MD Primary Care Provider [phone] Eda Alvarez MD Primary Care Provider + [phone] Dona Lamas MD Unavailable [phone] Mauri Dixon MD Primary Care Provider [phone] Mauri Dixon MD Primary Care Provider [phone] No, Physician Primary Care Provider No, Physician Primary Care Provider [phone] Lizeth Munguia SPORTS INFORMATION DIRECTOR Primary Care Provider + [phone] Raegan Mercado Primary Care Prov ider Will Briscoe DO Primary Care Provider + [phone] Raegan Mercado Primary Care Prov ider Raegan Mercado Primary Care Prov ider Will Briscoe DO Primary Care Provider + [phone] Raegan Mercado Primary Care Prov ider Will Briscoe DO Primary Care Provider + [phone] Cornelio Hernandez MD Primary Care Provider [phone] Anai Mullins MD Primary Care Provider [phone] Anai Mullins MD Primary Care Provider [phone] No, Physician Primary Care Provider [phone] Deirdre Bennett SPORTS INFORMATION DIRECTOR Primary Care Provider [phone] Justice Baeza MD Unavailable Agatha Quiñones SPORTS INFORMATION DIRECTOR Primary Care Provider [phone] Encounter Details Date Type Department Care Team (Late st Contact Info) Description 02/25/2018 Orders Only [facility] ProviderViola MD [address] [place] [address] Social History Tobacco Use Types Packs/Day Years Used Date Smoking Tobacco: Former Cigarettes Q uit: 11/17/2009 Alcohol Use Standard Drinks/Week Comments No 0 (1 standard drink = 0.6 oz pur e alcohol) Comments Unknown Sex and Gender Information Value Date Recorded Sex Assigned at Not on file Legal Sex Female 12:19 AM BAKER SECOND Gender Identity Not on file Sexual Orientation Not on file documented as of this encounter Plan of Treatment Not on file documented as of this encounter Procedures Procedure Name Priority Date/Time Associated Diagnosis Comments DISCHARGE LABORATORY CUMULATIVE REPORT 02/25/2018 12:00 AM CDT documented in this encounter Results * DISCHARGE LABORATORY CUMULATIVE REPORT (02/25/2018 12:00 AM CDT) Narrative 02/25/2018 12:00 AM CDT Ordered by an unspecified provider. 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 Patient has no open wounds, chronic device sites and is not intubated or trached. 08/16/2022 08/16/2022 04/15/2023 2:21 PM C DT COVID: Suspected 11/16/2022 11/16/2022 11/16/2022 10:13 AM BAKER SECOND COVID19 11/16/2022 11/16/2022 11/26/2022 3:05 AM BAKER SECOND COVID: Recovered Comment:Added based on recent COVID infection. 11/26/2022 11/27/2022 02/24/2023 3:05 AM C DT COVID: Suspected 08/10/2023 08/10/2023 08/10/2023 9:04 AM CDT COVID: Suspected 01/13/2024 01/13/2024 01/13/2024 9:35 AM BAKER SECOND COVID: Suspected 02/18/2024 02/18/2024 02/18/2024 9:47 AM CDT documented as of this encounter Care Teams Solid Waste Technician Relationship Specialty Start Date End Date Brian Lebron MD [address] [facility] [address] [place] [id number] PCP - General 04/01/17 11/19/18 No, Physician PCP - General 11/20/18 01/04/19 Antonella Ivory NP PCP - General Gynecologic Oncology 01/05/19 01/09/19 No, Physician PCP - General 01/10/19 01/24/19 Char Chang DO [facility] [place] [address] PCP - General 01/25/19 06/22/19 No, Physician PCP - General 06/23/19 07/21/19 Miscellaneous, Not In File PCP - General 07/22/19 08/02/19 No, Physician PCP - General 08/03/19 08/29/19 Anaya Portillo MD [address] [facility] [address] [place] [address] PCP - General Family Medicine 08/30/19 09/23/19 Eda Alvarez MD [address] [facility] [address] [place] [address] PCP - General 09/24/19 07/03/21 Mauri Dixon MD [address] [facility] [address] [place] [address] PCP - General 07/04/21 07/05/21 Mauri Dixon MD [address] [facility] [address] [place] [address] PCP - General 07/06/21 08/05/21 No, Physician PCP - General 08/09/21 02/05/22 No, Physician PCP - General 08/06/21 08/08/21 Lizeth Munguia, ELE[place] [address] [facility] [address] [place] [address] PCP - General Nurse Practitioner 02/06/22 06/13/22 Raegan Mercado PA [address] [place], [place] [id number] PCP - General 06/14/22 06/27/22 Will Briscoe DO [address] [place], [place] [address] PCP - General Family Medicine 06/28/22 07/03/22 Raegan Mercado PA [address] [place], [place] [address] PCP - General 07/04/22 07/04/22 Raegan Mercado PA [address] [place], [place] [id number] PCP - General 07/05/22 07/09/22 Will Briscoe DO [address] [place] [address] PCP - General Family Medicine 07/10/22 07/12/22 Raegan Mercado PA [address] [place], [place] [id number] PCP - General 07/13/22 07/29/22 Will Briscoe DO [address] [place] [address] PCP - General Family Medicine 07/30/22 09/23/22 Cornelio Hernandez MD [address] [place] [address] PCP - General Family Medicine 09/24/22 01/02/23 Anai Mullins MD [address] [place] [address] PCP - General Obstetrics and Gynecology 01/03/2312/19 Anai Mullins MD [address] [place], [place] [id number] PCP - General Obstetrics and Gynecology 01/08/2301/15 No, Physician PCP - General 01/30/23 03/11/23 Deirdre Bennett NP [address] [facility] [address] [place], [place] [id number] PCP - General Family Medicine 03/12/23 01/19/24 Agatha Quiñones NP [address] [facility] [address] [place] [address] PCP - General Teleradiologist 01/20/24 Dona Lamas MD [address] [facility] [address] AL[address]erra [address] [address] Referring Physician Gastroenterology 10/12/19 03/11/23 Justice Baeza MD [address] [facility] [address] [place] [address] Consulting Physician Gastroenterology 04/09/23 documented as of this encounter
--- OUTSIDE RECORDS SUMMARY | 2025-05-05 08:08 | XMS_ITS | Clinical Summary ---
Author Organization [facility] Address [address] [place] [address] Care Team Providers Care Acid Tender Name Role Phone None, Provider MD Primary Care Provider Unavaila ble Allergies Active Allergy Reactions Criticality Noted Date Comments Acetaminophen Other (see comment),Rash,Unkn own,Vomiting Low 02/05/2016 messes with my liver too bad Other reaction(s): Hives Reaction: Hives, Skin Rash, , Acetaminophen-Codeine Rash,Vomiting Medium 02/05/2016 Alprazolam Hives,Unknown Low 12/06/2016 Other reaction(s): Unknown Patient loses consciousness Amoxicillin Hives 10/25/2017 Chlordiazepoxide Unknown Trade Name Librium Clindamycin Hives Medium 10/27/2013 Codeine Nausea and Vomiting 10/25/2017 Other reaction(s): Hives Reaction: Hives, , Diphenhydramine-Apap (Sleep) Unknown Erythromycin Hives Medium Gadolinium Derivatives Unknown 02/12/2017 Iodine Unknown,Hives Medium 02/12/2017 Other reaction(s): Hives Pt states only injectable contrast dye. Pt states can have betadine prep Latex Rash Medium Levofloxacin Hives,Rash,Unknown Medium 02/05/2016 Levaquin Morphine And Codeine Unknown 02/12/2017 Nitrofurantoin Chest pressure,Unknown 02/05/2016 Other reaction(s): Hives Paroxetine Shortness of Breath,Unknown High 12/06/2016 Chest pain Paxil Penicillins Hives,Rash,Unknown Low 02/12/2017 Reaction: Rash, , Reaction: Hives, , Reaction: Hives, Potassium Unknown Propoxyphene Hives,Unknown Medium 02/05/2016 darvocet Sulfa Antibiotics Hives,Rash,Unknown Low 02/12/2017 Reaction: Rash, Sulfanilamide Hives Reaction: Hives, , Ketorolac Tromethamine Chest pressure 7 Vancomycin Hives,Unknown 02/12/2017 Sertraline Other (see comment) 10/25/2017 Black out Medications polyethylene glycol 236 g solution Take by mouth once. Active Active Problems Problem Noted Date Diagnosed Date Interstitial cystitis 03/26/2019 Social History Tobacco Use Types Packs/Day Years Used Date Smoking Tobacco: Former Cigarettes Q uit: 2009 Smokeless Tobacco: Never Alcohol Use Standard Drinks/Week Comments No 0 (1 standard drink = 0.6 oz pur e alcohol) Comments No Sex and Gender Information Value Date Recorded Sex Assigned at Not on file Legal Sex Female 5:42 PM CDT Gender Identity Not on file Sexual Orientation Not on file Last Filed Vital Signs Vital Sign Reading Time Taken Comments Blood Pressure 119/70 07/22/2021 12:41 PM CDT Pulse 92 07/22/2021 12:41 PM CDT Temperature 36.3 C (97.4 F) 07/22/2021 12:41 PM CDT Respiratory Rate 18 07/22/2021 12:41 PM CDT Oxygen Saturation 100% 07/22/2021 12:41 PM CDT Inhaled Oxygen Concentration - - Weight 83.7 kg (184 lb 9.6 oz) 07/19/2019 9:21 A M CDT Height 165.1 cm (5' 5) 07/19/2019 9:21 AM CDT Body Mass Index 30.72 07/19/2019 9:21 AM CDT Plan of Treatment Health Maintenance Due Date Last Done Comments Cervical Cancer Screening Pa p Smear (Age 30 to 64) Every 3 Years 1977 Colorectal Cancer Screening Colonoscopy (10 Years) 1977 Annual Physical 1980 Hepatitis C 1995 DTaP, Tdap and Td Vaccines ( 1 - Tdap) 1996 Hepatitis B Vaccines (1 of 3 - 19+ 3-dose series) 1996 Cervical Cancer Screening Pa p with HPV Testing (Age 30 to 64) Every 5 Years 2007 Cervical Cancer Screening wi HPV 2007 Mammogram Screening 2017 COVID-19 Vaccine (2023-2 5 season) 2024 06/01/2021, 05/11/2021 Meningococcal B Vaccine Aged Out No l onger eligible based on patient's age to complete this topic Meningococcal Vaccine Aged Out No glendy sae eligible based on patient's age to complete this topic Pneumococcal Vaccine: Pediatrics (0 to 5 Years) and At-Risk Patients (6 to 49 Years) Aged Out No longer eligible b ased on patient's age to complete this topic RSV Immunizations Under 20 Months Aged Out No longer eligible b ased on patient's age to complete this topic Care Teams Acid Tender Relationship Specialty Start Date End Date None, Provider, PCP - General 07/22/21
--- OUTSIDE RECORDS SUMMARY | 2025-05-05 08:08 | XMS_ITS | Clinical Summary ---
Author Organization [employer] Address [address] [place] [address] Care Team Providers Care Medical Imaging Technician Name Role Phone Jami Ledesma HEALTHCARE SPECIALIST Primary Care Provider [phone] Source Comments This disclosure is being made pursuant to the [employer] program and maynot contain all information available regarding this patient.[employer] Allergies Active Allergy Reactions Criticality Noted Date Comments Acetaminophen Other (See Comments),Nausea And Vomiting,Rash,Unk nown,Hives High 02/05/2016 messes with my liver too bad Other reaction(s): Hives Reaction: Hives, Skin Rash, , Acetaminophen-Codeine Nausea And Vomiting,Rash Medium 02/05/2016 Alprazolam Hives,Unknown High 12/06/2016 Other reaction(s): Unknown Patient loses consciousness Amoxicillin Hives,Unknown High 10/25/2017 Chlordiazepoxide Unknown Low 08/12/2024 Trade Name Librium Clindamycin Hives High 10/27/2013 Codeine Unknown Low 08/12/2024 Diphenhydramine-Apap (Sleep) Unknown Low 08/12/2024 Erythromycin Hives High 08/02/2024 Gadolinium Derivatives Unknown Low 02/12/2017 Iodinated Contrast Media Other (See Comments) Low 08/02/2024 Iodine Hives,Unknown High 02/12/2017 Other reaction(s): Hives Pt states only injectable contrast dye. Pt states can have betadine prep Ketorolac Shortness Of Breath High 08/02/2024 Ketorolac Tromethamine Shortness Of Breath,Unknown High 10/25/2017 Latex Rash Medium 08/02/2024 Levofloxacin Hives,Rash,Unknow n High 02/05/2016 Levaquin Morphine And Codeine Nausea And Vomiting,Unknown Medium 02/12/2017 Other reaction(s): Hives Reaction: Hives, , Nitrofurantoin Other (See Comments),Unknown ,Hives High 02/05/2016 Other reaction(s): Hives Other Other (See Comments) Low 08/02/2024 Paroxetine Shortness Of Breath,Unknown High 12/06/2016 Chest pain Paxil Penicillins Hives,Rash,Unknow n High 02/12/2017 Reaction: Rash, , Reaction: Hives, , Reaction: Hives, Potassium Unknown Low 08/02/2024 Propoxyphene Hives,Unknown High 02/05/2016 darvocet Sertraline Other (See Comments) Low 10/25/2017 Black out Sulfa Antibiotics Hives,Rash,Unknow n High 02/12/2017 Reaction: Hives, , Reaction: Rash, Sulfamethoxazole Itching,Other (See Comments) Low 08/02/2024 Sulfamethoxazole-Trimeth oprim Hives High 08/02/2024 Vancomycin Other (See Comments),Hives,S hortness Of Breath,Unknown High 02/12/2017 Medications fluticasone NASAL (FLONASE) 50 MCG/ACT nasal spray 2 sprays by Nasal route. 02/18/2024 Active Active Problems Problem Noted Date Diagnosed Date Lower urinary tract symptoms (LUTS) 09/08/2024 Urinary tract infectious disease 09/08/2024 Chronic interstitial cystitis 09/08/2024 Irritable bowel syndrome 09/08/2024 Dysuria 09/08/2024 Reduced libido 09/08/2024 Ovarian cyst 07/05/2024 Left breast lump 04/19/2024 Dyspareunia, female 01/20/2024 Asthma 01/13/2024 Chronic recurrent sinusitis 01/13/2024 Numbness and tingling sensation of skin 01/13/20 Sleep disorder 01/13/2024 Noninfectious gastroenteritis 04/21/2023 Early satiety 04/04/2023 Microscopic hematuria 02/06/2023 Urethral meatal stenosis 02/06/2023 Elevated amylase 10/28/2022 Anxiety 09/24/2022 Episodic mood disorder 09/24/2022 Chronic abdominal pain 08/25/2022 Bleeding external hemorrhoids 03/12/2022 Mild intermittent asthma 02/06/2022 Acquired trigger finger 01/30/2022 Leukorrhea 01/30/2022 Vulvitis 01/30/2022 Grade III hemorrhoids 09/14/2019 Gastroesophageal reflux disease without esophagi tis 05/04/2019 Interstitial cystitis 03/26/2019 Chronic ankle pain 12/13/2016 Closed fracture of right ankle 12/13/2016 Equinus contracture of right ankle 12/13/2016 Rheumatoid arthritis 11/24/2016 Overview (09/08/2024): bilateral feet Irritable bowel syndrome with constipation 10/30 Overview (09/08/2024): Dr. Ventura - urology Urethral stricture 10/30/2016 Overview (09/08/2024): Dr. 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 02/13/2016 Mitral valve prolapse 02/13/2016 Rheumatoid arthritis involving both feet 016 Chronic rhinitis 10/26/2015 Hearing loss 10/26/2015 Nasal obstruction 10/26/2015 Acquired deviated nasal septum 09/20/2013 Incompetent nasal valve 09/20/2013 Resolved Problems Problem Noted Date Diagnosed Date Resolved Date Change in bowel habits 09/08/202409/08 Right sided sciatica 09/08/2024 024 Chills (without fever) 07/05/202409/08 Acute pelvic pain, female 01/13/2024 Acute otitis media 01/13/2024 Dizziness 01/13/2024 09/08/2024 Otalgia of both ears 01/13/2024 024 Pain in female pelvis 01/13/20242023 Poor short-term memory 01/13/202409/08 Sexually transmitted disease 01/13/2024 09/08/2024 Tinea pedis 01/13/2024 09/08/2024 LUQ abdominal pain 05/07/2023 S/P hysterectomy 09/24/2022 09/08/2024 Thrombocytopenia 09/24/2022 09/08/2024 Partial small bowel obstruction 08/20/2022 09/08/2024 Pelvic floor weakness in female 02/27/2022 09/08/2024 Lower abdominal pain 01/30/2022 Right lower quadrant pain 01/30/2022 Disorder of skin or subcutaneous tissue 01/30/2022 09/08/2024 Hematuria 01/30/2022 09/08/2024 Infectious colitis 01/30/2022 Intermittent diarrhea 01/30/20222023 Reduced libido 01/30/2022 09/08/2024 Functional constipation 04/03/202108/18 Overview (09/08/2024): PT [facility] Overweight with body mass in dex (BMI) 25.0-29.9 04/05/2020 09/08/2024 Rectal bleeding 04/05/2020 09/08/2024 Overview (09/08/2024): Added automatically from request for surgery [id number] Incisional hernia, without o bstruction or gangrene 11/12/2018 09/08/2024 Umbilical pain 11/12/2018 09/08/2024 Pain in both feet 02/13/2016 09/08/2024 Pain of breast 05/15/2012 09/08/2024 Abnormal computed tomography of head 04/20/2012 09/08/2024 Overview (09/08/2024): Abnormal CT scan, head 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 09/08/2024 Overview (09/08/2024): Pineal gland cyst Encounters Date Type Department Care Team Description 05/03/2025 3:40 PM CDT Office Visit [facility] Podiatry [address] [place] [phone] Laura York, DPM Metatarsalgia of right foot (Primary Dx); Equinus contracture of right ankle; Muscle cramps; Chronic foot pain, right; Chronic pain of right ankle 05/02/2025 Travel 04/28/2025 Transcribe Orders [facility] Orthopedics and Sports Medicine [address] [place] [phone] Idalmis Richard NP Pain of foot, unspecified laterality (Primary Dx); Neuropathic pain of ankle; Right ankle pain, unspecified chronicity from Last 3 Months Immunizations Immunization Administration Dates Next Due Influenza, inactivated, quad rivalent, 3 years and older, single dose syringe/vial 09/08/2021,08/11/2020,08/23/2019 PPD Test 09/10/2016 Social History Tobacco Use Types Packs/Day Years Used Date Smoking Tobacco: Former Cigarettes Passive Smoke Exposure: Never Smokeless Tobacco: Never Tobacco Cessation:Counseling Given: No Alcohol Use Standard Drinks/Week Comments Never 0 (1 standard drink = 0.6 oz pur e alcohol) PHQ-2 Answer Date Recorded PHQ-2 Total Score 0 09/08/2024 Comments No Sex and Gender Information Value Date Recorded Sex Assigned at Not on file Legal Sex Female 12:49 PM CDT Gender Identity Female 08/02/2024 8:03 AM CDT Sexual Orientation Not on file Last Filed Vital Signs Vital Sign Reading Time Taken Comments Blood Pressure 109/76 09/08/2024 4:00 PM CDT Pulse 80 09/08/2024 4:00 PM CDT Temperature - - Respiratory Rate - - Oxygen Saturation - - Inhaled Oxygen Concentration - - Weight 81.2 kg (179 lb) 09/08/2024 4:00 PM CDT Height 165.1 cm (5' 5) 09/08/2024 4:00 PM CDT Body Mass Index 29.79 09/08/2024 4:00 PM CDT Plan of Treatment Upcoming Encounters Date Type Department Care Team (Late st Contact Info) Description 05/31/2025 3:45 PM CDT Appointment [facility] Imaging [address] [place] [phone] Laura York, DPM [address] [place] [phone] 05/31/2025 4:15 PM CDT Appointment [facility] Imaging [address] [place] [phone] Laura York, DPM [address] [place] [phone] 06/14/2025 3:50 PM CDT Appointment [facility] Podiatry [address] [place] [phone] Laura York, DPM [address] [place] [phone] Health Maintenance Due Date Last Done Comments CT Colonography 1977 Cervical Cancer Screening 1977 Colonoscopy 1977 Colorectal Cancer Screening 1977 Fecal DNA Test 1977 HPV 1977 Lab-Cholesterol Screening 1977 Lab-Diabetes Screening 1977 Lab-Hepatitis C Screening 1977 Sigmoidoscopy 1977 Hepatitis B Vaccine (1 of 3 - 19+ 3-dose series) 1996 Pneumococcal Vaccines 0-49 y o (1 of 2 - PCV) 1996 Tetanus/Pertussis Vaccine Teen/Adult (1 - Tdap) 1996 FOBT/FIT 1997 Pap Smear 1998 Annual Wellness Visit 10/04/2023 10/04/2022 , 12/01/2018 COVID-19 Vaccine ( - 2023-2 5 season) 2024 Influenza Vaccine (#1) 2024 , 08/11/2020, 08/23/2019 Breast Cancer Screening-Mammogram 10/03/2025 10/03/2023, 03/16/2021, 02/12/2019 Zoster (Shingles) Vaccine 50 + (1 of 2) 2027 RSV Adult (1 - 1-dose 75+ series) 2052 HIB Vaccine Aged Out No longer eligi ble based on patient's age to complete this topic HPV Vaccine (F:[id number],M: 9-22) Aged Out No longer eligible based on patient's age to complete this topic Hepatitis A Vaccine Aged Out No longe r eligible based on patient's age to complete this topic IPV Vaccine Aged Out No longer eligi ble based on patient's age to complete this topic Meningococcal Conjugate Vaccine Aged Out No longer eligible b ased on patient's age to complete this topic RSV < 20 Months Aged Out No longer el igible based on patient's age to complete this topic Insurance [facility] Care Teams Medical Imaging Technician Relationship Specialty Start Date End Date Jami Ledesma NP [address] [place] [address] PCP - General Nephrology 09/14/24
--- OUTSIDE RECORDS SUMMARY | 2025-05-05 08:08 | XMS_ITS | Clinical Summary ---
Author Organization [facility] Address [address] [place] [address] Phone Care Team Providers Care Outboard Motor Inspector Name Role Phone Unavailable Primary Care Provider Unavailabl e Allergies Active Allergy Reactions Criticality Noted Date Comments Amoxicillin Hives High 06/15/2022 Ketorolac Other (See Comments) 06/15/2022 Chest pain Levofloxacin Hives High 06/15/2022 Nitrofurantoin Monohyd/M-Cryst Hives High 06/15/2022 Paroxetine Hcl Syncope Medium 06/15/2022 Sulfa (Sulfonamide Antibiotics) Hives High 06/15/2022 Vancomycin Hives High 06/15/2022 Medications No known medications Social History Tobacco Use Types Packs/Day Years Used Date Smoking Tobacco: Never Smokeless Tobacco: Never Alcohol Use Standard Drinks/Week Comments Not Currently 0 (1 standard drink = 0.6 oz pur e alcohol) Comments No Sex and Gender Information Value Date Recorded Sex Assigned at Not on file Legal Sex Female 7:50 AM CDT Gender Identity Not on file Sexual Orientation Not on file Last Filed Vital Signs Vital Sign Reading Time Taken Comments Blood Pressure 144/85 06/15/2022 7:53 AM CDT Pulse 70 06/15/2022 7:53 AM CDT Temperature 36.7 C (98.1 F) 06/15/2022 7:53 AM CDT Respiratory Rate 16 06/15/2022 7:53 AM CDT Oxygen Saturation 99% 06/15/2022 7:53 AM CDT Inhaled Oxygen Concentration - - Weight 80.3 kg (177 lb) 06/15/2022 7:53 AM CDT Height 165.1 cm (5' 5) 06/15/2022 7:53 AM CDT Body Mass Index 29.45 06/15/2022 7:53 AM CDT Plan of Treatment Health Maintenance Due Date Last Done Comments DTAP/TDAP/TD VACCINES (1 - Tdap) 1996 HEPATITIS B VACCINES (1 of 3 - 19+ 3-dose series) 1996 HPV/Cotest (21-29) 1998 CERVICAL CANCER SCREENING 2007 HPV/Cotest (30-65) 2007 PAP SMEAR 2007 COLORECTAL SCREENING 2022 Colorectal Cancer Screening 2022 FIT-DNA Q 3 years 2022 FIT/FOBT Q 1 year 2022 Flex Sig/CT Colonography Q 5 years 2022 BREAST CANCER SCREENING 03/16/2022 03/16/2021, 02/12 INFLUENZA VACCINE (#1) 2024 , 08/11/2020, 08/23/[address] [facility] [employer] MEDICAID
--- OUTSIDE RECORDS SUMMARY | 2025-05-05 08:08 | XMS_ITS | Clinical Summary ---
Author Organization [facility] Address [address] [facility] [place] [address] Phone Care Team Providers Care Telesales Supervisor Name Role Phone Jorge Raygoza DPM Unavailable [phone] Jagdish Bryant MD Unavailable Dia Allen [employer], [employer] PROPERTY DISPOSAL AGENT Primary Care P rovider Mirtha Franklin MD Unavailable [phone] Allergies Active Allergy Reactions Criticality Noted Date Comments Alprazolam Unknown Low 12/06/2016 Patient loses consciousness Amoxicillin Hives 02/05/2016 Clindamycin Hives Medium 10/27/2013 Codeine Other (see Comments) 11/21/2022 Iodinated Contrast Media Hives Medium 05/16/2020 Diphenhydramine-Apap (Sleep) Unknown 09/05/2022 Erythromycin Other (see Comments) Medium 07/12/2022 Iodine Other (see Comments),Unknown Medium 02/12/2017 Other reaction(s): Hives Pt states only injectable contrast dye. Pt states can have betadine prep Other reaction(s): Hives Pt states only injectable contrast dye. Pt states can have betadine prep Latex Rash Medium 07/12/2022 Levofloxacin Hives 02/05/2016 Nitrofurantoin Monohyd Macro Hives 02/05/2016 Other-Environmental Allergen (Not Found In Search) Other (see Comments) 11/21/2022 Paroxetine Shortness of Breath,Other (see Comments) High 12/06/2016 Chest pain Penicillins Hives 02/05/2016 Potassium Nausea,Unknown Low 07/12/2022 Propoxyphene Hives 02/05/2016 darvocet Sulfa Antibiotics Hives 02/05/2016 Ketorolac Tromethamine Other (see Comments) 02/05/2016 Chest pain Acetaminophen-Codeine Vomiting 02/05/2016 Acetaminophen Vomiting 02/05/2016 Vancomycin Hives 02/05/2016 Medications No known medications Active Problems Problem Noted Date Diagnosed Date Abdominal pain 08/25/2022 Chronic pain of right ankle 12/13/2016 Lumbar radiculopathy 05/15/2016 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 02/13/2016 Rheumatoid arthritis involving both feet 016 Resolved Problems Problem Noted Date Diagnosed Date Resolved Date Partial small bowel obstruction 08/25/2022 02/14/2023 Small bowel obstruction 08/20/202201/17 Stiffness of ankle joint 12/13/2016 Ankle fracture, right 12/13/20162022 Equinus contracture of right ankle 12/13/2016 02/14/2023 Pain in both feet 02/13/2016 02/14/2023 Immunizations Immunization Administration Dates Next Due Influenza Vaccine, MDCK,quadrivalent, pres free 09/08/2021,08/23/2019 Influenza Vaccine, Quadrivalent, PF 08/11/2020 Tuberculin Skin Test; Purifi ed Protein Derivative Solutiol 09/10/2016 Family History Medical History Relation Name Comments Hypertension Brother Cancer Father colon Congestive Heart Failure Father Hypertension Father Diabetes Maternal Grandfather Hypertension Maternal Grandmother Stroke Maternal Grandmother No Known Problems Mother No Known Problems Paternal Grandfather Stroke Paternal Grandmother No Known Problems Son Relation Name Status Comments Brother Alive Father Maternal Grandfather Maternal Grandmother Mother Alive Paternal Grandfather Paternal Grandmother Sister Other Son Alive Social History Tobacco Use Types Packs/Day Years Used Date Smoking Tobacco: Former Cigarettes 1 18 1 - 2009 Smokeless Tobacco: Never Comments:quit 2009 Alcohol Use Standard Drinks/Week Comments No 0 (1 standard drink = 0.6 oz pur e alcohol) PHQ-2 Answer Date Recorded Total Score - Questions 1-9 0 04/17 Education Answer Date Recorded What is the highest level of school you have completed or the highest degree you have received? 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 Not on file Not on file Last Filed Vital Signs Vital Sign Reading Time Taken Comments Blood Pressure 108/82 03/17/2024 1:54 PM CDT Pulse 68 03/17/2024 1:54 PM CDT Temperature 36.9 C (98.4 F) 03/17/2024 1:54 PM CDT Respiratory Rate 14 03/17/2024 1:54 PM CDT Oxygen Saturation 99% 03/17/2024 1:54 PM CDT Inhaled Oxygen Concentration - - Weight 76.7 kg (169 lb) 03/17/2024 1:54 PM CDT Height 165.1 cm (5' 5) 07/11/2023 11:01 AM CDT Body Mass Index 28.12 07/11/2023 11:01 AM CDT Plan of Treatment Health Maintenance Due Date Last Done Comments Hepatitis C Virus (HCV) Screening 1977 TdaP Immunization 1977 Hepatitis B Immunization (1 of 3 - 19+ 3-dose series) 1996 Cologuard 2022 Immunochemical Fecal Occult Blood 2022 SARS-COV-2 Immunization ( season) 2024 12/02/2021, 06/01/2021, 05/11/2021 Mammogram 10/03/2024 10/03/2023, 02/17, 03/16/2021, Additional history exists Influenza Immunization (Season Ended) 2025 09/08/2021, 08/11/2020, 08/23/2019 Colonoscopy 05/01/2033 05/01/2023, 03/19, 06/11/2022, Additional history exists Colorectal Cancer Screening 05/01/2033 Respiratory Syncytial Virus (RSV) Immunization (Adult) (1 - 1-dose 75+ series) 2052 Discussion re Starting/Frequency of Mammograms Completed 10/03/2023, 03/16/2021, 02/12/2019 Human Papillomavirus (HPV) Immunization Aged Out No longer eligible based on patient's age to complete this topic Meningococcal Immunization (ACWY) Aged Out No longer eligible based on patient's age to complete this topic Pneumococcal Immunization Combined Aged Out No longer eligible based on patient's age to complete this topic Rotavirus Immunization Aged Out No lo nger eligible based on patient's age to complete this topic Procedures Procedure Name Priority Date/Time Associated Diagnosis Comments HM COLONOSCOPY 06/11/2022 12:00 AM CDT from Last 3 Months or Most Recently Relevant to Health Maintenance Results * HM COLONOSCOPY (06/11/2022 12:00 AM CDT) 06/11/2022 us Not On File Provider PROCEDURE/MINOR SURGICAL OR DERABLES Final Result Performing Organization Address City/State/[facility] Co de Phone Number SCAN from Last 3 Months or Most Recently Relevant to Health Maintenance Insurance [facility] Advance Directives * Full Code (Latest Code Status on File) Date Activated Date Inactivated Comments 08/20/2022 2:26 AM 08/22/2022 3:55 PM CPR-Full Joseph atment: FULL ARREST: Attempt Resuscitation/CPR wit intubation and mechanical ventilation. PRE-ARREST: Use entire range of life support measures to stabilize the patient. Care Teams Telesales Supervisor Relationship Specialty Start Date End Date Dia Allen APRN, [employer] DISPOSAL AGENT [address] [place] [address] PCP - General Advanced Practice Nurse 02/14/23 Jorge Raygoza DPM Podiatry 02/29/16 Jagdish Bryant MD [address] [address] Consulting Physician Colon and Rectal Surgery 06/17/22 Mirtha Franklin MD [address] [place] [address] Consulting Physician Gastroenterology 12/12/22
--- OUTSIDE RECORDS SUMMARY | 2025-05-05 08:08 | XMS_ITS | Referral Summary ---
Author Organization [facility] Healthcare Address [address] [place] [address] Care Team Providers Care Tester Armature Or Fields Name Role Phone Aryan Justice ARANGO Unavailable Agatha Quiñones NP Primary Care Provider [phone] Allergies Active Allergy Reactions Criticality Noted Date [...] 01/20/2024 Assessment & Plan (01/20/2024 10:58 AM WELDING INSTRUCTOR): Discussed diagnosis. Patient does not want HRT including vaginal estrogen cream. Does not like lubricants. Screening for thyroid disorder 01/20/2024 Assessment & Plan (01/20/2024 10:59 AM WELDING INSTRUCTOR): TSH ordered to be done before annual physical in May Screening, anemia, deficiency, iron 01/20/2024 Assessment & Plan (01/20/2024 10:59 AM WELDING INSTRUCTOR): Labs ordered for before annual physical in May Screening for lipid disorders 01/20/2024 Assessment & Plan (01/20/2024 10:59 AM WELDING INSTRUCTOR): Lipid panel ordered for May Screening for diabetes mellitus 01/20/2024 Assessment & Plan (01/20/2024 10:59 AM WELDING INSTRUCTOR): CMP ordered before annual physical in May Acute otitis media 01/13/2024 Asthma 01/13/2024 Assessment & Plan (01/20/2024 10:57 AM WELDING INSTRUCTOR): Patient denies any shortness of breath. States [...] 10/28/2022 Assessment & Plan (10/28/2022 12:52 PM WELDING INSTRUCTOR): -per patient. Previous lipase from 10/11 noted [...] 09/24/2022 Assessment & Plan (09/24/2022 8:47 AM WELDING INSTRUCTOR): Does not want to have this treated but states that she was doing conuseling and keeping track of her triggers Mood disorder 09/24/2022 Assessment & Plan (05/22/2023 3:51 PM CDT): Patient agreeable to Psychiatry, I agree with patient and do suspect an ADHD component. Referral placed. S/P hysterectomy 09/24/2022 Assessment & Plan (01/20/2024 11:00 AM WELDING INSTRUCTOR): Patient has intact ovaries, which are likely gradually failing over time and causing vaginal dryness and dyspareunia. Partial small bowel obstruction 08/20/2022 Bleeding external hemorrhoids 03/12/2022 Irritable bowel syndrome with constipation 02/27 Assessment & Plan (10/28/2022 12:51 PM WELDING INSTRUCTOR): -ongoing for years. Previously followed by a vp integrity. + prior colonoscopy. No anemia. Normal menstruation. No history of melena or hematochezia. No family history of colon cancer. No family history of IBD. No weight changes. No relief with use of [id number] laxatives. Patient is however not willing to [...] on 03/28/23 Pt has been referred to funeral car chauffeur who tests for drug allergies so we may be able to take some allergies off her list. Assessment & Plan (09/24/2022 8:44 AM WELDING INSTRUCTOR): Following with GI - as per previous [...] colonoscopy Assessment & Plan (09/24/2022 8:49 AM WELDING INSTRUCTOR): Following with GI Assessment & Plan (04/21/2022 7:46 PM CDT): She manages with Golytely drink full gallon every couple weeks and happy with this so will continue the same. Rectal bleeding 04/05/2020 Overview (04/05/2020): Added automatically from request for surgery [id number] Assessment & Plan (04/05/2020 3:02 PM CDT): [...] 04/05/2020 Assessment & Plan (01/20/2024 10:55 AM WELDING INSTRUCTOR): BMI 26.56 Patient tries to actively manage [...] planned. Assessment & Plan (10/28/2022 12:53 PM WELDING INSTRUCTOR): -discussed the pathophysiology of gastroesophageal reflux disease even with Edward fundoplication. Natural course of history of disease after the hiatal hernia surgery. Discussed the fact that she can still need medications even after the hiatal hernia surgery and with the upper endoscopy being normal. Assessment & Plan (05/04/2019 4:04 PM CDT): Patient has previous Edward fundoplication surgery and right now she does not require medications. Is are multiple. Chronic interstitial cystitis 12/17/2018 Overview (01/13/2024): Dr. Lobo - Urology Assessment & Plan (01/20/2024 10:54 AM WELDING INSTRUCTOR): Symptomatic today. UA unremarkable except for a trace of blood that patient reports is present chronically. Managed by Urology. Instructed to increase fluids. Assessment & Plan (03/24/2023 3:37 PM CDT): Patient had a cystoscopy recently per her Urologist that was normal. Has upcoming appointment with Dr Blanchard on 03/27/23. Incisional hernia, without obstruction or gangre ne 11/12/2018 Assessment & Plan (11/12/2018 10:52 AM WELDING INSTRUCTOR): Reducible, tender. May be the source of pain as it is so close to the umbilicus and patient cannot differentiate location pain. Umbilical pain 11/12/2018 Assessment & Plan (11/12/2018 10:53 AM WELDING INSTRUCTOR): Unable to feel defect but very tender, [...] Urology Assessment & Plan (01/20/2024 10:55 AM WELDING INSTRUCTOR): Chronic symptom not related to any acute cystitis Urethral stricture 10/30/2016 Overview (01/13/2024): Dr. Naren Ventura - Urology Irritable bowel syndrome 10/30/2016 Overview (01/13/2024): Dr. Ventura - urology Assessment & Plan (01/20/2024 10:56 AM WELDING INSTRUCTOR): Patient reports that managing her diet has helped control the chronic diarrhea. She is being managed by Dr. Milligan at [facility] Assessment & Plan (04/09/2023 9:35 [...] (01/13/2024): Added automatically from request for surgery [id number] Assessment & Plan (04/05/2020 3:01 PM CDT): [...] Patient Refused),11/17/2021(Deferred: Patient Refused) PPD TEST 09/10/2016 Social History Tobacco Use Types Packs/Day [...] on file Legal Sex Female 12:19 AM WELDING INSTRUCTOR Gender Identity Not on file Sexual Orientation [...] 02/18/2024 9:29 AM CDT Plan of Treatment Not on file Procedures Procedure Name Priority Date/Time Associated Diagnosis Comments SCREENING MAMMOGRAM BILATERAL W JOSE Schedule Routine, Read Routine (OP Routine) 10/03/2023 9:23 AM WELDING INSTRUCTOR Encounter for screening mammogram for malignant neoplasm of breast COLONOSCOPY 05/01/2023 10:01 AM CDT HEPATITIS C AB REFLEX RNA QUANT PCR Routine 07/08/2019 9:17 AM CDT from Last 3 Months or Most Recently Relevant to Health Maintenance Results * Screening Mammogram Bilateral W Jose (10/03/2023 9:23 AM WELDING INSTRUCTOR) Anatomical Region Laterality Modality Breast Bilateral Mammography Narrative 10/03/2023 1:15 PM WELDING INSTRUCTOR BILATERAL DIGITAL MAMMOGRAPHY The present examination has [...] BI-RADS Category 2: Benign. PATIENT LETTER SENT us Deirdre Ji DO IMG MAMMO PROCEDURES Fi nal Result * COLONOSCOPY (05/01/2023 10:01 AM CDT) Anatomical Region Laterality Modality Other Narrative Procedure Note Justice Baeza MD - 05/01/2023 10:01 AM CDT [facility] Patient Name: Yaquelin Jauregui Procedure Date: 05/01/2023 10:01 AM Date of : 1975 Admit Type: Outpatient Age: 48 Gender: Female Attending MD: Justice Baeza M.D. Room: [facility] ENDOSCOPY ROOM 2 Note Status: Finalized Patient Profile: This is a 48 year old female history of cholecystectomy, Edward fundopl ication, hemorrhoidectomy, hysterectomy, interstitial cystitis, IBS-C [...] quadrant, Colitis, presumed infectious, IBS-C Referring MD: Sana Faust Providers: Justice Baeza M.D. Impression: - Preparation [...] procedure were verified by the physician, the senior grants officer and the emergency response technician in the endoscopy suite. Mental Status [...] passed under directvision. The Pediatric Colonoscope [id number] was introduced through the anus and advanced [...] 10:01 AM Procedure Code(s): --- Professional --- 81354, Colonoscopy, flexible; diagnostic, including collection of specimen(s) by brushing or washing, when performed (separateprocedure) --- Technical --- 20923, Colonoscopy, flexible; diagnostic, including collection of specimen(s) [...] congenital malformations of intestine CPT copyright 2020 [employer]. All rights reserved. The codes documented in this report are preliminary and upon alternative medicine practitioner reviewmay be revised to meet current compliance requirements. Recognized by the [employer] for promoting quality in endoscopy Justice Baeza MD ENDOSCOPY PROCEDURES Final Resul t * Hepatitis C Antibody Reflex Hepatitis C RNA Quantitative PCR Blood (07/08/2019 9:17 AM CDT) Hep C Ab Negative Negative [facility] WOODRUFF ([place]) Comment:Testing performed by : , [address] [place] [address], [place]., [address] Blood specimen (specimen) 07/08/2019 9:17 AM CDT 07/08/2019 2:18 PM CDT Lakia King NP LAB MICROBIOLOGY - GENERAL OR DERABLES Final Result [facility] WOODRUFF ([place]) 1 [facility] Department [place] [address] from Last 3 Months or Most Recently Relevant to Health Maintenance [place] Advance Directives For more information, please contact: [phone] * Full Code (Latest Code Status on [...] 8:25 AM 04/10/2023 8:25 AM Care Teams Tester Armature Or Fields Relationship Specialty Start Date End Date Agatha Quiñones NP [address] [place] [address] PCP - General Kitchen Chef 01/20/24 Justice Baeza MD [address] [place] [address] [address] [place] [address] Consulting Physician Gastroenterology 04/09/23
--- OUTSIDE RECORDS SUMMARY | 2025-05-05 08:08 | XMS_ITS | Clinical Summary ---
Author Organization [facility] Address [address] [place] [address] Care Team Providers Care Director Digital Strategy Name Role Phone Cornelio Hernandez MD Primary Care Provider [phone] Source Comments [facility],non-owned Affiliates and Associated Physician Practices is amultiple site organization consisting of ambulatory clinics and hospital sitesin [place], [place], [place] and [place]. This disclosure is being madepursuant to the Care Everywhere program and may not contain all information available regarding this patient. Last updated 18.[facility] Allergies Active Allergy Reactions Criticality Noted Date Comments Acetaminophen Urticaria,Other,Ra sh,Shortness of Breath,Unknown,Vom iting High 12/10/2012 messes with my liver too bad Other reaction(s): Hives Reaction: Hives, Skin Rash, , Acetaminophen-Codeine Rash,Vomiting Medium 02/05/2016 Alprazolam Anaphylaxis,Other, Shortness of Breath,Unknown High 12/10/2012 Patient loses consciousness Other reaction(s): Unknown Patient loses consciousness Patient loses consciousness Amoxicillin Rash Medium 06/16/2022 Chlordiazepoxide Unknown 07/12/2022 Trade Name Librium Trade Name Librium Clindamycin Urticaria Medium 10/27/2013 Contrast-Gadolinium Agents For Mri Unknown 02/12/2017 Contrast-Iodinated Agents For Ct/Other Rash Medium 06/16/2022 Diphenhydramine-Acetamino phen Nausea and/or Vomiting Low 07/12/2022 Diphenhydramine-Apap (Sleep) Unknown 09/05/2022 Erythromycin Other Medium 07/12/2022 Iodine Other,Unknown Medium 02/12/2017 Other reaction(s): Hives Pt states only injectable contrast dye. Pt states can have betadine prep Other reaction(s): Hives Pt states only injectable contrast dye. Pt states can have betadine prep Latex Rash Medium 07/12/2022 Levofloxacin Rash Medium 06/16/2022 Nitrofurantoin Rash Medium 06/16/2022 Penicillins Rash Medium 06/16/2022 Potassium Nausea and/or Vomiting,Unknown Low 07/12/2022 Propoxyphene Urticaria,Unknown Medium 02/05/2016 darvocet darvocet Sertraline Other Low 10/25/2017 Black out Pass out Sulfa Drugs Other,Rash,Unknown Medium 08/09/2011 Reaction: Hives, , Reaction: Rash, Ketorolac Other 06/16/2022 Patient states, I can't breathe and get really bad CP. Vancomycin Rash Medium 06/16/2022 Medications * Be aware that medications may not be up to date on this document. Alwaysverify current medications with the patient. calcium carbonate (Tums) 500 MG chew tablet Take 1 tablet by mouth daily with food Active oxyCODONE, immediate release, (Roxicodone) 5 MG tablet Take 1 (one) tablet by mouth every 6 hours as needed for Pain 12 tablet 2 Active Additional Information Patient not taking.Reported on 09/12/2022 oxyCODONE, immediate release, (Roxicodone) 5 MG tablet Take 1 (one) tablet by mouth every 6 hours as needed for Pain 6 tablet 2 Active Additional Information Patient not taking.Reported on 09/12/2022 polyethylene glycol 3350 (Miralax) 17 GM/SCOOP powder Take 17 (seventeen) g by mouth once daily 238 g 2 Active Additional Information Patient not taking.Reported on 09/12/2022 ondansetron, disintegrating, (Zofran ODT) 4 MG tablet Take 1 (one) tablet by mouth every 6 hours as needed for Nausea/Vomiting Allow tablet to dissolve on the tongue 12 tablet 2 Active plecanatide (Trulance) 3 MG tabletIndication s:Chronic idiopathic constipation Take 1 (one) tablet by mouth once daily 30 tablet 2 Active polyethylene glycol (Golytely) 236 g solutionIndicati ons:Bowel Irrigation Take 240 mL by mouth once as needed (constipation) Reasons: Cleansing or Flushing of the Intestinal Tract 4000 mL 4 2 Active Active Problems Problem Noted Date Diagnosed Date Chronic abdominal pain 08/28/2022 Resolved Problems Problem Noted Date Diagnosed Date Resolved Date Abdominal pain, generalized 08/26/2022 08/28/2022 Bloating 08/26/2022 08/28/2022 SBO (small bowel obstruction) 08/26/2022 08/28/2022 Nausea and vomiting, unspeci fied vomiting type 08/26/2022 08/28/2022 Social History Tobacco Use Types Packs/Day Years Used Date Smoking Tobacco: Former Smokeless Tobacco: Never Alcohol Use Standard Drinks/Week Comments Not Currently 0 (1 standard drink = 0.6 oz pur e alcohol) AUDIT-C Answer Date Recorded Q1: How often do you have a drink containing alc ohol? Monthly or less 08/26/2022 Q2: How many drinks containi ng alcohol do you have on a typical day when you are drinking? Patient declined 08/26/2022 Q3: How often do you have si x or more drinks on one occasion? Less than monthly 08/26/2022 Hunger Vital Sign Answer Date Recorded Within the past 12 months, y ou worried that your food would run out before you got the money to buy more. Never true 08/27/20 22 Within the past 12 months, t he food you bought just didn't last and you didn't have money to get more. Never true 08/27/2022 Comments No Sex and Gender Information Value Date Recorded Sex Assigned at Female 06/28/2022 7:15 PM CDT Legal Sex Female 1:31 PM CDT Gender Identity Female 06/28/2022 7:15 PM CDT Sexual Orientation Straight 06/28/2022 7: 15 PM CDT Last Filed Vital Signs Vital Sign Reading Time Taken Comments Blood Pressure 110/68 09/13/2022 7:35 AM CDT Pulse 68 09/13/2022 7:35 AM CDT Temperature 36.2 C (97.1 F) 09/13/2022 7:24 AM CDT Respiratory Rate 10 09/13/2022 7:35 AM CDT Oxygen Saturation 100% 09/13/2022 7:35 AM CDT Inhaled Oxygen Concentration 99% 08/13/2022 6 :26 AM CDT Weight 68 kg (150 lb) 09/13/2022 6:52 AM CDT Height 165.1 cm (5' 5) 09/13/2022 6:52 AM CDT Body Mass Index 24.96 09/13/2022 6:52 AM CDT Plan of Treatment Health Maintenance Due Date Last Done Comments COLOGUARD (AGES 45-75) - COL ON CA SCREENING 1975 CT COLONOGRAPHY - COLON CA SCREENING 1975 FIT - COLON CA SCREENING 1975 FLEX SIG - COLON CA SCREENING 1975 MAMMOGRAM 1975 HIV SCREENING 1992 HEPATITIS C SCREENING 01/03/1995 DTAP/TDAP/TD VACCINES (1 - Tdap) 1996 HEPATITIS B VACCINE (1 of 3 - 19+ 3-dose series) 1996 PAP SMEAR 1998 COVID-19 VACCINE (4 - 2023-2 5 season) 2024 12/02/2021, 06/01/2021, 05/11/2021 DEPRESSION SCREENING 11/17/2024 INFLUENZA VACCINE (Season Ended) 2025 09/08/2021, 08/11/2020, 08/23/2019 ZOSTER VACCINE (1 of 2) 2027 LIPID TESTING 05/22/2027 05/22/2022 COLON MONITORING 05/01/2033 05/01/2023, 04/15/2023, 04/24/2020 COLONOSCOPY - COLON CA SCREENING 05/01/2033 05/01/2023, 04/15/2023, 04/24/2020 Colorectal Cancer Screening 05/01/2033 HIB VACCINE Aged Out No longer eligi ble based on patient's age to complete this topic HPV VACCINE Aged Out No longer eligi ble based on patient's age to complete this topic MENINGOCOCCAL (Group B) VACCINE SHARED DECISION-MAKING Aged Out No longer eligible based on patient's age to complete this topic MENINGOCOCCAL GROUPS A/C/Y/W VACCINE Aged Out No longer eligible b ased on patient's age to complete this topic PNEUMOCOCCAL VACCINE Aged Out No long er eligible based on patient's age to complete this topic Medical Devices Implanted Type Area Chief Passenger Ship Steward/Stewardess Device Identifier Shelf Expiration Date Model / Serial / Lot Mesh Srg Ventralight St Sepra 8x6in Implanted:Qty: 1 on 08/13/2022 by Brian Yañez MD at [facility] [employer] 01/14/2024 [id number] / / [id number] Insurance [facility] Advance Directives * Full Code (Latest Code Status on File) Date Activated Date Inactivated Comments 08/26/2022 8:50 PM 08/29/2022 1:30 AM Care Teams Director Digital Strategy Relationship Specialty Start Date End Date Cornelio Hernandez MD [address] [place] [address] [address] [place] [id number] PCP - General 09/02/22
--- OUTSIDE RECORDS SUMMARY | 2025-05-05 08:08 | XMS_ITS | Encounter Summary ---
Author Organization [facility] Address [address] [place] [address] Phone Care Team Providers Care Set Up Person Name Role Phone Jorge Raygoza DPM Unavailable [phone] Jagdish Bryant MD Unavailable Will Briscoe DO Primary Care Provider [phone] Cornelio Hernandez MD Primary Care Provider [phone] Anai Mullins MD Primary Care Provider [phone] Dia Allen APRN, MISSILEMAN Primary Care P rovider Mirtha Franklin MD Unavailable [phone] Reason for Visit * Reason Onset Date Comments New Patient 08/13/2022 Encounter Details Date Type Department Care Team (Late st Contact Info) Description 08/13/2022 Telephone [facility] [address] [place] [address] Provider, None [place] New Patient Social History Tobacco Use Types Packs/Day Years Used Date Smoking Tobacco: Former Cigarettes 1 18 1 992 - 2009 Smokeless Tobacco: Never Comments:quit 2009 Alcohol Use Standard Drinks/Week Comments No 0 (1 standard drink = 0.6 oz pur e alcohol) PHQ-2 Answer Date Recorded Total Score - Questions 1-9 0 04/17 Sexually Active Control Partners Comments Not Currently Male Comments No Sex and Gender Information Value Date Recorded Sex Assigned at Not on file Legal Sex Female 8:56 PM CDT Gender Identity Not on file Sexual Orientation Not on file 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 No / Unsure 08/14/2022 2:03 PM CDT documented as of this encounter Miscellaneous Notes * Telephone Encounter - Heavenly Allred - 08/13/2022 2:41 PM CDT ----- Message from [employer] sent at 08/12/2022 6:12 PM CDT ----- Regarding: New Patient New [facility] Primary Provider Request Insurance of patient: [place] Name of person calling: Yaquelin Jauregui Relationship to patient: Self Preferred phone number: [phone] Alternate phone number: n/a [facility] / [facility] [address] Provider preference (male/female, specific provider name): Rossi Villalta Willing to see someone other than physician, such as ANDREY, ANNETTE, resident? yes Patient reason for appointment/any current symptoms: Establish Care- Gastro Referral Other information (including need for stand in): No * Telephone Encounter - Heavenly Allred - 08/13/2022 2:40 PM CDT ----- Message from [employer]ou[employer] sent at 08/12/2022 6:12 PM CDT ----- Regarding: New Patient New [facility] Primary Provider Request Insurance of patient: [place] Name of person calling: Yaquelin Jauregui Relationship to patient: Self Preferred phone number: [phone] Alternate phone number: n/a Region / Office location preference[facility] [address] Provider preference (male/female, specific provider name): Rossi Villalta Willing to see someone other than physician, such as CRANE CHASER, [place], resident? yes Patient reason for appointment/any current symptoms: Establish Care- Gastro Referral Other information (including need for stand in): No documented in this encounter Plan of Treatment Not on file documented as of this encounter Visit Diagnoses Not on filedocumented in this encounter Additional Health Concerns Infection Onset Date Last Indicated Resolved Time COVID - 19 Confirmed 09/15/2022 09/15/2022 022 12:16 AM DECK OFFICER documented as of this encounter Care Teams Set Up Person Relationship Specialty Start Date End Date Will Briscoe DO #[address] [address] PCP - General Family Medicine 07/18/22 08/22/22 Cornelio Hernandez MD [address] [facility] [address] [place] [address] PCP - General Heart Coordinator 08/25/22 12/31/22 Anai Mullins MD 2 [facility] [address] [address] PCP - General Family Medicine 01/01/23 02/13/23 Dia Allen APRN, MISSILEMAN [address] [place] [address] PCP - General Advanced Practice Nurse 02/14/23 Jorge Raygoza DPM Podiatry 02/29/16 Jagdish Bryant MD [address] [address] Consulting Physician Colon and Rectal Surgery 06/17/22 Mirtha Franklin MD [address] [place] [address] Consulting Physician Gastroenterology 12/12/22 documented as of this encounter
[2025-05-05 08:12] VITALS: BP 126/84; PULSE 69; RESP 20; TEMP 36.7; O2SAT 98
[2025-05-05 08:40] LABS: EDUAAPPEAR Clear; EDUABILI Negative (Negative); EDUABLOOD Trace (Negative); EDUACOLOR1 Yellow; EDUAGLUCOSE Negative (Negative); EDUAKETONE Negative (Negative); EDUALEUKO Negative (Negative); EDUANITRATE Negative (Negative); EDUAPROTEIN Negative (Negative); EDUAUROBILI 0.2
--- NOTE | 2025-05-05 08:58 | ED_ITS ---
HPI - General Adult General Chief complaint: Urogenital-Female Stated complaint: Bladder Source: patient Mode of arrival: ambulatory Limitations: no limitations History of Present Illness HPI narrative: Pt presents for evaluation of urinary symptoms for the past three days. Symptoms include urinary urgency, hesitancy, frequency and suprapubic pressure. She denies any fever, chills, nausea, vomiting, hematuria, vaginal discharge. She has a history of interstitial cystitis. Related Data Home Medications ?Medication ?Instructions ?Recorded ?Confirmed ?Last Taken ?Type No Home Medications 07/06/24 05/05/25 Unknown History Allergies Allergy/AdvReac Type Severity Reaction Status Date / Time amoxicillin AdvReac Intermediate Chest Pain Verified 05/05/25 08:18 codeine AdvReac Intermediate Nausea and Verified 05/05/25 08:18 Vomiting ketorolac (From Toradol) AdvReac Intermediate Palpitation Verified 05/05/25 08:18 s levofloxacin (From Levaquin) AdvReac Intermediate Chest Pain Verified 05/05/25 08:18 nitrofurantoin (From AdvReac Intermediate Chest Pain Verified 05/05/25 08:18 Macrobid) Penicillins AdvReac Intermediate Chest Pain Verified 05/05/25 08:18 Sulfa (Sulfonamide AdvReac Intermediate Chest Pain Verified 05/05/25 08:18 Antibiotics) vancomycin AdvReac Intermediate Chest Pain Verified 05/05/25 08:18 acetaminophen AdvReac Mild Hives Verified 05/05/25 08:18 clindamycin AdvReac Mild Hives Verified 05/05/25 08:18 gadobenic acid (From AdvReac Mild Hives Verified 05/05/25 08:18 contrast - MRI) hydrocodone AdvReac Mild Hives Verified 05/05/25 08:18 iohexol (From contrast - CT, AdvReac Mild Hives Verified 05/05/25 08:18 X-RAY) latex AdvReac Mild RASH-CONDOMS Verified 05/05/25 08:18 AND GLOVES lubiprostone (From Amitiza) AdvReac Mild Itching Verified 05/05/25 08:18 paroxetine (From Paxil) AdvReac Mild Hives Verified 05/05/25 08:18 propoxyphene (From AdvReac Mild Itching Verified 05/05/25 08:18 Darvocet-N 100) Review of Systems Review of Systems: CONSTITUTIONAL: Denies fever, chills, or sweats. EYES: Denies visual changes, redness, or discharge. ENT: Denies rhinorrhea, congestion, sore throat, or otalgia. CARDIOVASCULAR: Denies chest pain, palpitations, or edema. RESPIRATORY: Denies cough or dyspnea. GASTROINTESTINAL: Denies abdominal pain, nausea, vomiting, or diarrhea. GENITOURINARY: Reports urinary frequency, hesitancy, urgency, frequency, and suprapubic pressure. Denies hematuria and vaginal discharge SKIN: Denies rash or itching. MUSCULOSKELETAL: Denies back pain, joint pain, or myalgia. NEUROLOGIC: Denies headache, numbness, dizziness, or weakness. PSYCHIATRIC: Denies anxiety or depression. [facility] Past Medical History Medical History Family history of malignant neoplasm of colon in father Irritable bowel syndrome with constipation Vaginal delivery Right hand fracture GERD (gastroesophageal reflux disease) Anxiety Depression Urinary tract infection Genitourinary disorder Interstitial cystitis, urethral dilation Constipation Irritable bowel syndrome Bronchitis Mitral valve prolapse Interstitial cystitis Surgical History Surgical History H/O umbilical hernia repair History of urinary tract surgery History of hysterectomy H/O hemorrhoidectomy History of orthopedic surgery Right knee, trigger release finger left hand H/O tubal ligation H/O sinus surgery History of tonsillectomy History of facial surgery Nasal reconstruction Family History Family History Grandparent Diabetes mellitus, Onset Age: 200 Cerebrovascular accident, Onset Age: 200 Father Family history of elevated blood lipids Carcinoma of colon Family history of coronary artery disease, Onset Age: 201 Patient's father is Grandparent Family history of malignant neoplasm Diabetes mellitus Cerebrovascular accident Hypertension Family history of cardiovascular disease Father Family history of congestive heart failure Patient's father is Hypertension Carcinoma of colon Family history of emphysema Family history of cardiovascular disease Sibling Hypertension Grandparent Diabetes mellitus Social History Social History Social History: no caffeine use Smoking packs per day: 1.5 Smoking cigarettes per day: 30.0 Years smoked: 13 Smoking pack-years: 19.50 Smoking status: Former smoker Tobacco type: cigarettes Second hand tobacco smoke exposure: No Smoking end date: 07/06/10 Alcohol intake: never Substance use: never Living arrangements: with family Additional living arrangements comments: Al[facility] [phone] Occupation/Education: unemployed Gender identity (if verbalized by the patient): Female Sexual Orientation (if Verbalized by the Patient): Straight or Heterosexual Spiritual care concerns: No Exam Narrative: GENERAL: Well-appearing, well-nourished, and in no acute distress. HEAD: Normocephalic, atraumatic. EYES: PERRLA and EOMI. ENT: Nares clear, no rhinorrhea or epistaxis. Mucous membranes moist. Oropharynx without tonsillar hypertrophy exudate or other lesions. Bilateral TMs pearly pickering nonbulging NECK: Supple. No adenopathy or masses. No carotid bruits or JVD CHEST: Clear to auscultation. No respiratory distress. No wheezes rales or rhonchi HEART: Regular rate and rhythm. No murmur heard. Normal peripheral pulses. ABDOMEN: Soft, nontender, nondistended, normal active bowel sounds. EXTREMITIES: Normal range of motion. No edema. BACK: No CVA tenderness SKIN: Warm, dry, no rash. NEURO: No focal deficits. Alert and oriented x3. PSYCH: Normal mood and affect. Course Course Emergency Course: This is a 50-year-old female who presented for evaluation of urinary symptoms. No nitrites or leukocytes in the urine today. Trace blood. Exam is consistent with interstitial cystitis. Follow-up with primary provider. Go to the ER for worsening symptoms. Patient in agreement with plan of care Level of Care: Express Care Visit Vital Signs Vital signs: Vital Signs Temperature 36.7 C 05/05/25 08:12 Pulse Rate 69 05/05/25 08:12 Respiratory Rate 20 05/05/25 08:12 Blood Pressure 126/84 05/05/25 08:12 Pulse Oximetry 98 05/05/25 08:12 Oxygen Delivery Room Air 05/05/25 08:12 Temperature 36.7 C 05/05/25 08:12 Pulse Rate 69 05/05/25 08:12 Respiratory Rate 20 05/05/25 08:12 Blood Pressure 126/84 05/05/25 08:12 Pulse Oximetry 98 05/05/25 08:12 Oxygen Delivery Room Air 05/05/25 08:12 Medical Decision Making Vital Signs Vital Signs: Vital Signs Temperature 36.7 C 05/05/25 08:12 Pulse Rate 69 05/05/25 08:12 Respiratory Rate 20 05/05/25 08:12 Blood Pressure 126/84 05/05/25 08:12 Pulse Oximetry 98 05/05/25 08:12 Oxygen Delivery Room Air 05/05/25 08:12 Temperature 36.7 C 05/05/25 08:12 Pulse Rate 69 05/05/25 08:12 Respiratory Rate 20 05/05/25 08:12 Blood Pressure 126/84 05/05/25 08:12 Pulse Oximetry 98 05/05/25 08:12 Oxygen Delivery Room Air 05/05/25 08:12 Lab Data Labs: Lab Results 05/05/25 Range/Units 08:30 POC Urine Color Yellow POC Urine Clarity Clear POC Urine pH 6.0 POC Ur Specif [place] 1.030 POC Urine Protein Negative (Negative) POC Ur Glucose (UA) Negative (Negative) POC Urine Ketones Negative (Negative) POC Urine Blood Trace (Negative) POC Urine Nitrite Negative (Negative) POC Urine Bilirubin Negative (Negative) POC Urine Urobilinogen 0.2 POC U Leukocyte Esteras Negative (Negative) Discharge Plan Discharge Clinical Impression: Cystitis, interstitial Patient Disposition: Home Condition: Stable Instructions: Antibiotic Form, Interstitial Cystitis (ED) Patient Language: Belarusian Prescriptions: No Action No Home Medications Follow-up/Referrals: Javier Pulido MD [Physician] - Time of Disposition: 08:37
== END 2025-05-05 08:37 | disposition home or self-care (01) ==
PROVIDERS: Emergency Provider Nurse Practitioner
DX: N30.10 Interstitial cystitis (chronic) without hematuria (principal); Z87.891 Personal history of nicotine dependence; K21.9 Gastro-esophageal reflux disease without esophagitis; I34.1 Nonrheumatic mitral (valve) prolapse
CPT/HCPCS: 81003; 99212; G0463

== ENCOUNTER 2025-06-10 17:33 | Emergency (ER) | payer BC, SELFPAY ==
--- OUTSIDE RECORDS SUMMARY | 2025-06-10 17:36 | XMS_ITS | Patient Health Record ---
Author Organization [employer] Address [address] [facility]. [address] [place] [id number] Care Team Providers Care Laboratory Technician Name Role Phone Donald BAND NAILER BAND NAILER, Deirdre Primary Care Provider Unavailab le Allergies Allergen (clinical drug ingredient) Drug/Non Drug Allergy documented on EMR Reaction Allergy Type Onset Date Status Levaquin hives Drug Allergy Active diphenhydrAMINE-Acet a minophen nausea/emesis Drug Allergy Active acetaminophen Acetaminophen rash/hives Drug Allergy Active alprazolam Alprazolam shortness of breath Drug Allergy Active amoxicillin Amoxicillin shortness of breath, pruritus Drug Allergy Active ampicillin Ampicillin hives Drug Allergy Activ e chlordiazepoxide Chlordiazepoxide Unknown Drug Allergy Active codeine Codeine hives Drug Allergy Active Iodine rash Drug Allergy 08/08/2023 active ketorolac Ketorolac shortness of breath, chest pain Drug Allergy Active lactose Lactose (Intolerance) Unknown Drug Allergy Active Latex Latex rash Allergy Active paroxetine Paroxetine syncope Drug Allergy Activ e sertraline Sertraline syncope Drug Allergy Activ e Substance with sulfonamide structure and antibacterial mechanism of action (substance) Sulfa Antibiotics rash Drug Allergy Active clindamycin Clindamycin hives Drug Allergy Act sedrick erythromycin Erythromycin hives Drug Allergy A ctive morphine Morphine Unknown Drug Allergy Active nitrofurantoin Nitrofurantoin rash/hives Drug Allergy Active Penicillin rash Drug Allergy 08/08/2023 activ e potassium chloride Potassium Chloride nausea/emesis Drug All ergy Active propoxyphene Propoxyphene hives Drug Allergy A ctive sulfanilamide Sulfanilamide hives Drug Allergy Active vancomycin Vancomycin shortness of breath, chest pain Drug Allergy Active Reason For Referral No Information Medications Medication SIG (Take, Route, Fr equency, Duration) Notes Start Date End Date Status Plecanatide Active Amitriptyline HCl 25 MG as directed Orally Active Famotidine 20 MG as directed Orally Active Social History Tobacco Use: Social History Observation Description Date Details (start date - stop date) Former Smoker NA - NA Tobacco Use/Smoking Question Answer Notes Are you a former smoker How long has it been since you last smoked? > 10 years Problems Problem Type SNOMED Code ICD Code Onset Dates Problem Status W/U Status Risk Notes Problem Weight loss (835501119) Weight loss (R63.4) Active confirmed Problem Abdominal pain (R10.9) Active confirmed Problem History of polyp of colon (situation) (291570657) History of colon polyps (Z86.010) Active confirmed Plan Of Treatment No Information Insurance Providers Payer Name Payer Address Payer Phone Subscriber Number Group Number Insured Name Patient Relationship to Insured Coverage Start Date Coverage End Date Blue Access PPO E2 [address] [place] [address] [id number] JuventinoYaquelin Self - patient is the insured Medical (General) History Medical History History ICD Code IBS Hemorrhoids Colitis GERD Lactose Intolerance Urethral Stricture Skin Disorder Hearing Loss Rheumatoid Arthritis Anxiety/Mood Disorder Surgical History Surgery Date(Month/Year) Colonoscopy (Dr. Justice Baeza) 04/2023 Flex Sigmoidoscopy 12/2022 Edward Fundoplication 2004 Hernia Repair Hemorrhoidectomy Cholecystectomy Hysterectomy Hospitalization History Reason Date(Month/Year) [facility] Hospital: Small Bowel Obstruction
--- OUTSIDE RECORDS SUMMARY | 2025-06-10 17:36 | XMS_ITS | Clinical Summary ---
Author Organization [facility] Address [address] [place] [address] Phone Care Team Providers Care Center Receptionist Name Role Phone Unavailable Primary Care Provider [...] SCREENING 03/16/2022 03/16/2021, 02/12 INFLUENZA VACCINE (#1) 2025 , 08/11/2020, 08/23/2019 Insurance [facility] PLAN MEDICAID
--- OUTSIDE RECORDS SUMMARY | 2025-06-10 17:36 | XMS_ITS | Encounter Summary ---
Author Organization [facility] Healthcare Address [address] [place] [address] Care Team Providers Care Construction Job Cost Estimator Name Role Phone Eda Alvarez MD Primary Care Provider [phone] Dona Lamas MD Unavailable [phone] Mauri Dixon MD Primary Care Provider [phone] Mauri Dixon MD Primary Care Provider [phone] No, Physician Primary Care Provider No, Physician Primary Care Provider Lizeth Munguia NP Primary Care Provider [phone] Raegan Mercado Primary Care Prov ider Will Briscoe DO Primary Care Provider [phone] Raegan Mercado Primary Care Prov ider Raegan Mercado Primary Care Prov ider Will Briscoe DO Primary Care Provider + [phone] Raegan Mercado Primary Care Prov ider Will Briscoe DO Primary Care Provider [phone] Cornelio Hernandez MD Primary Care Provider [phone] Anai Mullins MD Primary Care Provider [phone] Anai Mullins MD Primary Care Provider [phone] No, Physician Primary Care Provider [phone] Deirdre Bennett BOX LOADER Primary Care Provider [phone] Justice Baeza MD Unavailable Agatha Quiñones BOX LOADER Primary Care Provider [phone] Reason for Visit * Reason Onset Date Comments Scheduling Appointments 03/14/2021 Confirmi ng mammogram appt- no answer Encounter Details Date Type Department Care Team (Late st Contact Info) Description 03/14/2021 Telephone [facility] [address] [place], [place] [id number] Isabel Su RT Scheduling Appointments (Confirming mammogram [...] on file Legal Sex Female 12:19 AM SEED BUYER Gender Identity Not on file Sexual Orientation [...] COVID: Suspected 11/16/2022 11/16/2022 11/16/2022 10:13 AM SEED BUYER COVID19 11/16/2022 11/16/2022 11/26/2022 3:05 AM SEED BUYER COVID: Recovered Comment:Added based on recent COVID infection. 11/26/2022 11/27/2022 02/24/2023 3:05 AM C DT COVID: Suspected 08/10/2023 08/10/2023 08/10/2023 9:04 AM CDT COVID: Suspected 01/13/2024 01/13/2024 01/13/2024 9:35 AM SEED BUYER COVID: Suspected 02/18/2024 02/18/2024 02/18/2024 9:47 AM CDT documented as of this encounter Care Teams Construction Job Cost Estimator Relationship Specialty Start Date End Date Eda Alvarez MD PCP - General 09/24/19 07/03/21 Mauri Dixon MD PCP - General 07/04/21 07/05/21 Mauri Dixon MD PCP - General 07/06/21 08/05/21 No, Physician PCP - General 08/09/21 02/05/22 No, Physician PCP - General 08/06/21 08/08/21 Lizeth Munguia NP [address] [place] [address] PCP - General Nurse Practitioner 02/06/22 06/13/22 Raegan Mercado PA [address] [place] [address] PCP - General 06/14/22 06/27/22 Will Briscoe DO [address] [facility] [place] [address] PCP - General Family Medicine 06/28/22 07/03/22 Raegan Mercado PA [address] [place] [address] PCP - General 07/04/22 07/04/22 Raegan Mercado PA [address] [place] [address] PCP - General 07/05/22 07/09/22 Will Briscoe DO [address] [place] [address] PCP - General Family Medicine 07/10/22 07/12/22 Raegan Mercado PA [address] [place] [address] PCP - General 07/13/22 07/29/22 Will Briscoe DO [address] [place] [address] PCP - General Family Medicine 07/30/22 09/23/22 Cornelio Hernandez MD [address] [place] [address] PCP - General Family Medicine 09/24/22 01/02/23 Anai Mullins MD [address] [place] [address] PCP - General Obstetrics and Gynecology 01/03/2312/19 Anai Mullins MD [address] [place] [address] PCP - General Obstetrics and Gynecology 01/08/2301/15 No, Physician PCP - General 01/30/23 03/11/23 Deirdre Bennett NP [facility] [address] [facility] [address] [place] [address] PCP - General Family Medicine 03/12/23 01/19/24 Agatha Quiñones NP [address] [facility] [address] [place] [address] PCP - General Emu Farm Worker 01/20/24 Dona Lamas MD Referring Physician Gastroenterology 10/12/19 03/11/23 Justice Baeza MD [address] [place] [address] [address], [place] [address] Consulting Physician Gastroenterology 04/09/23 documented as of this encounter
--- OUTSIDE RECORDS SUMMARY | 2025-06-10 17:36 | XMS_ITS | Patient Health Record ---
Author Organization [facility] [employer] [facility] Address [address] [place] [address] Care Team Providers Care Energy Control Officer Name Role Phone Luann Price Unavailable [phone] Reason For Referral No Information Immunizations Vaccine Route Administration Date Status Comme nts Influenza, injectable, MDCK, preservative free Unknown 08/23/2019 Administered Influenza, injectable, MDCK, preservative free Unknown 09/08/2021 Administered Novel [id number], preservative free Unknown 08/11/2020 Administered Plan Of Treatment No Information Insurance Providers Payer Name Payer Address Payer Phone Subscriber Number Group Number Insured Name Patient Relationship to Insured Coverage Start Date Coverage End Date [place] [employer] Choice Ppo [address] [place] [address] [id number] RADHA BENAVIDEZ Self - patient is the insured Medical (General) History Surgical History Surgery Date(Month/Year) Sinus surgery 12/19/2012 Tonsilectomy/adenoids 12/22/2004 Hysterectomy (24669) 02/17/2012 Removal of gallbladder (60595) 8
--- OUTSIDE RECORDS SUMMARY | 2025-06-10 17:36 | XMS_ITS | Clinical Summary ---
Author Organization [facility] Address [address] [facility] [place] [address] Care Team Providers Care Director Employee Safety And Health Name Role Phone Cornelio Hernandez MD Primary Care Provider [phone] Source Comments [facility],non-owned Affiliates and Associated Physician Practices is amultiple site organization consisting of ambulatory clinics and hospital sitesin [place], [place], [place] and [place]. This disclosure is being madepursuant to the Care Everywhere program and may not contain all information available regarding this patient. Last updated 18.[facility] Allergies Active Allergy Reactions Criticality Noted Date [...] 06/01/2021, 05/11/2021 DEPRESSION SCREENING 11/17/2024 INFLUENZA VACCINE (#1) 2025 , 08/11/2020, 08/23/2019 ZOSTER VACCINE (1 of 2) [...] this topic Medical Devices Implanted Type Area Photo Producer Device Identifier Shelf Expiration Date Model / Serial / Lot Mesh Srg Ventralight St Sepra 8x6in Implanted:Qty: 1 on 08/13/2022 by Brian Yañez MD at [facility] [employer] 01/14/2024 [id number] / / [id number] Insurance [facility] Advance Directives * Full Code (Latest Code Status on File) Date Activated Date Inactivated Comments 08/26/2022 8:50 PM 08/29/2022 1:30 AM Care Teams Director Employee Safety And Health Relationship Specialty Start Date End Date Cornelio Hernandez MD [address] [place] [address] [address] [place] [id number] PCP - General 09/02/22
--- OUTSIDE RECORDS SUMMARY | 2025-06-10 17:36 | XMS_ITS | Patient Health Record ---
Author Organization [facility] [place] ([address]) Address [address] [place] [address] Care Team Providers Care Pricing Lead Name Role Phone Deirdre Bennett Primary Care Provider Edmond Matson [phone] Allergies Allergen (clinical drug ingredient) Drug/Non Drug [...] hives, SOB, throat closing Drug Allergy Active Reason For Referral No Information Medications Medication SIG (Take, Route, Frequency, Duration) Notes Start Date End Date Status Fluticasone Propionate 50 MCG/ACT 1 spray(s) in each nostril once a day last used 6 months ago Active FLUTICASONE NASAL 50 mcg/inh 1 spray(s) in each nostril once a day last used 6 months ago Active Social History Tobacco Use: Social History Observation Description Date Details (start date - stop date) Former Smoker NA - NA Smoking Smart Form: Question Answer Notes Are you a: former smoker Problems Problem Type SNOMED Code ICD Code Onset Dates Problem Status W/U Status Risk Notes Problem Allergy to penicillin (07505906) Allergy status to penicillin (Z88.0) Active confirmed Problem Chronic rhinitis (58211231) Chronic rhinitis (J31.0) Active confirmed Problem Hypertrophy of nasal turbinates (63320837) Hypertrophy of nasal turbinates (J34.3) Active confirmed Problem Gastro-esophag eal reflux disease without esophagitis (745884047) Gastro-esophageal reflux disease without esophagitis (K21.9) Active confirmed Problem Irritable bowel syndrome with diarrhea (282643985) Irritable bowel syndrome with diarrhea (K58.0) Active confirmed Problem Sulfonamide adverse reaction (624044934) Adverse effect of sulfonamides, initial encounter (T37.0X5A) Active confirmed Problem Adverse effect o f antimycobacterial drugs, initial encounter (T37.1X5A) Active confirmed Problem Adverse reaction to food (409943303) Other adverse food reactions, not elsewhere classified, initial encounter (T78.1XXA) Active confirmed Problem Allergy status t o other antibiotic agents (Z88.1) Active confirmed Problem Allergy status t o analgesic agent (Z88.6) Active confirmed Plan Of Treatment No Information Insurance Providers Payer Name Payer Address Payer Phone Subscriber Number Group Number Insured Name Patient Relationship to Insured Coverage Start Date Coverage End Date [facility] [address] [place] [address] [phone] [id number] JuventinoYaquelin Self - patient is the insured Medical (General) History Medical History History ICD Code Irritable bowel syndrome with diarrhea K 58.0 Gastro-esophageal reflux disease without esophagitis K21.9 Surgical History Surgery Date(Month/Year) Belly button mesh repair 3 time around 0 08/13/2023 Nose repairb 12/09/2016
--- OUTSIDE RECORDS SUMMARY | 2025-06-10 17:36 | XMS_ITS | Encounter Summary ---
Author Organization [facility] Address [address] [place] [address] Phone Care Team Providers Care Health Administration Teacher Name Role Phone Jorge Raygoza DPM Unavailable [phone] Jagdish Bryant MD Unavailable Will Briscoe DO Primary Care Provider Cornelio Hernandez MD Primary Care Provider Anai Mullins MD Primary Care Provider [phone] Dia Allen APRN, BUSINESS RULES DEVELOPER Primary Care P rovider Mirtha Franklin MD Unavailable [phone] Reason for Visit * Reason Onset Date Comments New Patient 08/13/2022 Encounter Details Date Type Department Care Team (Late st Contact Info) Description 08/13/2022 Telephone [facility] [address] [place] [address] Provider, None [place] New Patient [...] 08/13/2022 2:41 PM CDT ----- Message from [employer] sent at 08/12/2022 6:12 PM CDT ----- Regarding: [facility] Primary Provider Request Insurance of patient: [place] Name of person calling: Yaquelin Jauregui Relationship to patient: Self Preferred phone number: [phone] Alternate phone number: n/a Region / Office location preference: [facility] [address] Provider preference (male/female, specific provider name): Rossi Villalta Willing to see someone other than physician, such as ANDREY, ANNETTE, resident? yes Patient reason for appointment/any current symptoms: Establish Care- Gastro Referral Other information (including need for retail greeting card merchandiser): No * Telephone Encounter - Heavenly Allred - 08/13/2022 2:40 PM CDT ----- Message from [employer] sent at 08/12/2022 6:12 PM CDT ----- Regarding: New Patient [facility] Primary Provider Request Insurance of patient: [place] Name of person calling: Yaquelin Jauregui Relationship to patient: Self Preferred phone number: [phone] Alternate phone number: n/a Region / Office location preference: [facility] [address] Provider preference (male/female, specific provider name): Rossi Villalta Willing to see someone other than physician, such as SAND CONTROL WORKER, PA, resident? yes Patient reason for appointment/any current symptoms: Establish Care- Gastro Referral Other information (including need for retail greeting card merchandiser): No documented in this encounter Plan of Treatment Not on file documented as of this encounter Visit Diagnoses Not on filedocumented in this encounter Additional Health Concerns Infection Onset Date Last Indicated Resolved Time COVID - 19 Confirmed 09/15/2022 09/15/2022 022 12:16 AM SENIOR SALES ENGINEER documented as of this encounter Care Teams Health Administration Teacher Relationship Specialty Start Date End Date Will Briscoe DO [address] [address] PCP - General Family Medicine 07/18/22 08/22/22 Cornelio Hernandez MD [address] [facility] [address] [place] [address] PCP - General Senior Product Analyst 08/25/22 12/31/22 Anai Mullins MD 2 [facility] [address] [address] PCP - General Family Medicine 01/01/23 02/13/23 Dia Allen APRN, BUSINESS RULES DEVELOPER [address] [place] [address] PCP - General Advanced Practice Nurse 02/14/23 Jorge Raygoza DPM Podiatry 02/29/16 Jagdish Bryant MD [address] [address] Consulting Physician Colon and Rectal Surgery 06/17/22 Mirtha Franklin MD [address] [place] [address] Consulting Physician Gastroenterology 12/12/22 documented as of this encounter
--- OUTSIDE RECORDS SUMMARY | 2025-06-10 17:36 | XMS_ITS ---
Author Organization [facility] [place] ([address]) Address [address] [place] [address] Care Team Providers Care Money Order Clerk Name Role Phone Deirdre Bennett Primary Care Provider UnavailEdmond Wells Unavailable [phone] [facility]Migration, Provider Unavailable Unavailab le Allergies Allergen [...] closing Drug Allergy Active REASON FOR VISIT [facility] Conversion Encounter Medications Medication SIG (Take, Route, Frequency, Duration) Notes Start Date End Date Status Fluticasone Propionate 50 MCG/ACT 1 spray(s) in each nostril once a day last used 6 months ago Active Encounters Encounter Location Date Provider Diagnosis [place] [address] 05/01/2024 Provider [facility]Migration Plan Of Treatment No Information Progress Notes * REEMADeejayen LDOB: 7 (50 yo F)Acc No.[id number]:05/01/2024 Patient: Yaquelin ESPINAL Provider: Laurel Gonzalez :1975 A ge:49 Y S ex:Female Date:05/01/2024 Address:[address] [place], [place] [id number] Pcp:Deirdre Bennett Subjective: * Chief Complaints: * [...] Electronic signature of Prov ider [facility]-Migration on 06/10/2025 at 05:36 PM CDT Sign off status: Pending * Provider: Laurel Gonzalez Date: 05/01/2024 Generated for Maggy macario/Efrem/Yariel on: 06/10/2025 05:36 PM CDT
--- OUTSIDE RECORDS SUMMARY | 2025-06-10 17:36 | XMS_ITS | Referral Summary ---
Author Organization [facility] Address [address] [place] [address] Care Team Providers Care Chair Spring Assembler Name Role Phone Aryan Justice ARANGO Unavailable Agatha Quiñones NP Primary Care Provider [phone] Allergies Active Allergy Reactions Criticality Noted Date [...] 01/20/2024 Assessment & Plan (01/20/2024 10:58 AM PRESIDENT COMMERCIAL BANK): Discussed diagnosis. Patient does not want HRT including vaginal estrogen cream. Does not like lubricants. Screening for thyroid disorder 01/20/2024 Assessment & Plan (01/20/2024 10:59 AM [employer]IDENT [employer]): TSH ordered to be done before annual physical in May Screening, anemia, deficiency, iron 01/20/2024 Assessment & Plan (01/20/2024 10:59 AM [employer]IDENT [employer]): Labs ordered for before annual physical in May Screening for lipid disorders 01/20/2024 Assessment & Plan (01/20/2024 10:59 AM [employer]): Lipid panel ordered for May Screening for diabetes mellitus 01/20/2024 Assessment & Plan (01/20/2024 10:59 AM [employer]): CMP ordered before annual physical in May Acute otitis media 01/13/2024 Asthma 01/13/2024 Assessment & Plan (01/20/2024 10:57 AM [employer]): Patient denies any shortness of breath. States [...] 10/28/2022 Assessment & Plan (10/28/2022 12:52 PM [employer]): -per patient. Previous lipase from 10/11 noted [...] 09/24/2022 Assessment & Plan (09/24/2022 8:47 AM [employer]): Does not want to have this treated but states that she was doing conuseling and keeping track of her triggers Mood disorder 09/24/2022 Assessment & Plan (05/22/2023 3:51 PM CDT): Patient agreeable to Psychiatry, I agree with patient and do suspect an ADHD component. Referral placed. S/P hysterectomy 09/24/2022 Assessment & Plan (01/20/2024 11:00 AM [employer]): Patient has intact ovaries, which are likely gradually failing over time and causing vaginal dryness and dyspareunia. Partial small bowel obstruction 08/20/2022 Bleeding external hemorrhoids 03/12/2022 Irritable bowel syndrome with constipation 02/27 Assessment & Plan (10/28/2022 12:51 PM [employer]): -ongoing for years. Previously followed by a panel wirer. + prior colonoscopy. No anemia. Normal menstruation. No history of melena or hematochezia. No family history of colon cancer. No family history of IBD. No weight changes. No relief with use of zdvs-ldq-embjena laxatives. Patient is however not willing to [...] on 03/28/23 Pt has been referred to telegraph lineman who tests for drug allergies so we may be able to take some allergies off her list. Assessment & Plan (09/24/2022 8:44 AM PRESIDENT [employer]): Following with GI - as per previous [...] colonoscopy Assessment & Plan (09/24/2022 8:49 AM [employer]): Following with GI Assessment & Plan (04/21/2022 7:46 PM CDT): She manages with Golytely drink full gallon every couple weeks and happy with this so will continue the same. Rectal bleeding 04/05/2020 Overview (04/05/2020): Added automatically from request for surgery [id number] Assessment & Plan (04/05/2020 3:02 PM CDT): [...] 04/05/2020 Assessment & Plan (01/20/2024 10:55 AM [employer]): BMI 26.56 Patient tries to actively manage [...] planned. Assessment & Plan (10/28/2022 12:53 PM [employer]): -discussed the pathophysiology of gastroesophageal reflux disease [...] Urology Assessment & Plan (01/20/2024 10:54 AM PRESIDENT [employer]): Symptomatic today. UA unremarkable except for a trace of blood that patient reports is present chronically. Managed by Urology. Instructed to increase fluids. Assessment & Plan (03/24/2023 3:37 PM CDT): Patient had a cystoscopy recently per her Urologist that was normal. Has upcoming appointment with Dr Blanchard on 03/27/23. Incisional hernia, without obstruction or gangre ne 11/12/2018 Assessment & Plan (11/12/2018 10:52 AM [employer]IDENT [employer]): Reducible, tender. May be the source of pain as it is so close to the umbilicus and patient cannot differentiate location pain. Umbilical pain 11/12/2018 Assessment & Plan (11/12/2018 10:53 AM PRESIDENT [employer]): Unable to feel defect but very tender, [...] Urology Assessment & Plan (01/20/2024 10:55 AM PRESIDENT [employer]): Chronic symptom not related to any acute cystitis Urethral stricture 10/30/2016 Overview (01/13/2024): Dr. Naren Ventura - Urology Irritable bowel syndrome 10/30/2016 Overview (01/13/2024): Dr. Ventura - urology Assessment & Plan (01/20/2024 10:56 AM PRESIDENT [employer]): Patient reports that managing her diet has helped control the chronic diarrhea. She is being managed by Dr. Milligan at [facility] Assessment & Plan (04/09/2023 9:35 [...] (01/13/2024): Added automatically from request for surgery [id number] Assessment & Plan (04/05/2020 3:01 PM CDT): [...] on file Legal Sex Female 12:19 AM [employer]IDENT [employer] Gender Identity Not on file Sexual Orientation [...] Read Routine (OP Routine) 10/03/2023 9:23 AM PRESIDENT COMM[employer]CIAL BANK Encounter for screening mammogram for malignant neoplasm of breast COLONOSCOPY 05/01/2023 10:01 AM CDT HEPATITIS C AB REFLEX RNA QUANT PCR Routine 07/08/2019 9:17 AM CDT from Last 3 Months or Most Recently Relevant to Health Maintenance Results * Screening Mammogram Bilateral W Jose (10/03/2023 9:23 AM [employer]IDENT [employer]) Anatomical Region Laterality Modality Breast Bilateral Mammography Narrative 10/03/2023 1:15 PM [employer]ANK BILATERAL DIGITAL MAMMOGRAPHY The present examination has [...] Baeza MD - 05/01/2023 10:[address] [facility] Patient Name: Yaquelin Jauregui Procedure Date: 05/01/2023 10:01 AM Date of : 1975 Admit Type: Outpatient Age: 48 Gender: Female Attending MD: Justice Baeza M.D. Room: [facility] ENDOSCOPY ROOM 2 Note Status: Finalized Patient [...] procedure were verified by the physician, the pet care assistant and the digital camera technician in the endoscopy suite. Mental Status [...] passed under directvision. The Pediatric Colonoscope PCF-H190L [id number] was introduced through the anus and advanced [...] 10:01 AM Procedure Code(s): --- Professional --- 03474, Colonoscopy, flexible; diagnostic, including collection of specimen(s) by brushing or washing, when performed (separateprocedure) --- Technical --- 03085, Colonoscopy, flexible; diagnostic, including collection of specimen(s) [...] congenital malformations of intestine CPT copyright 2020 [place] [employer]. All rights reserved. The codes documented in this report are preliminary and upon pharmacy teacher reviewmay be revised to meet current compliance requirements. Recognized by the [place] [employer] for promoting quality in endoscopy Justice Baeza MD ENDOSCOPY PROCEDURES Final Resul t * Hepatitis C Antibody Reflex Hepatitis C RNA Quantitative PCR Blood (07/08/2019 9:17 AM CDT) Hep C Ab Negative Negative SAM[facility] WOODRUFF ([place]) Comment:Testing performed by : [facility], [address] [place] [address], [place]., [address] Blood specimen (specimen) 07/08/2019 9:17 AM CDT 07/08/2019 2:18 PM CDT Lakia King NP LAB MICROBIOLOGY - GENERAL OR DERABLES Final Result SAMMI WOODRUFF ([place]) 1 [facility] Department [place] [address] from Last 3 Months or Most Recently Relevant to Health Maintenance [place] Advance Directives For more information, please contact: [phone] * Full Code (Latest Code Status on [...] 8:25 AM 04/10/2023 8:25 AM Care Teams Chair Spring Assembler Relationship Specialty Start Date End Date Agatha Quiñones NP [address] [place] [address] PCP - General Temperature Inspector 01/20/24 Justice Baeza MD [address] [place] [address] [address] [place] [address] Consulting Physician Gastroenterology 04/09/23
--- OUTSIDE RECORDS SUMMARY | 2025-06-10 17:36 | XMS_ITS | Clinical Summary ---
Author Organization [facility] Healthcare Address [address] [place] [address] Care Team Providers Care Land Conservation Specialist Name Role Phone Aryan Justice ARANGO Unavailable Agatha Quiñones NP Primary Care Provider [phone] Allergies Active Allergy Reactions Criticality Noted Date [...] 01/20/2024 Assessment & Plan (01/20/2024 10:58 AM INSURANCE CLAIMS ADJUSTER): Discussed diagnosis. Patient does not want HRT including vaginal estrogen cream. Does not like lubricants. Screening for thyroid disorder 01/20/2024 Assessment & Plan (01/20/2024 10:59 AM INSURANCE CLAIMS ADJUSTER): TSH ordered to be done before annual physical in May Screening, anemia, deficiency, iron 01/20/2024 Assessment & Plan (01/20/2024 10:59 AM INSURANCE CLAIMS ADJUSTER): Labs ordered for before annual physical in May Screening for lipid disorders 01/20/2024 Assessment & Plan (01/20/2024 10:59 AM INSURANCE CLAIMS ADJUSTER): Lipid panel ordered for May Screening for diabetes mellitus 01/20/2024 Assessment & Plan (01/20/2024 10:59 AM INSURANCE CLAIMS ADJUSTER): CMP ordered before annual physical in May Acute otitis media 01/13/2024 Asthma 01/13/2024 Assessment & Plan (01/20/2024 10:57 AM INSURANCE CLAIMS ADJUSTER): Patient denies any shortness of breath. States [...] 10/28/2022 Assessment & Plan (10/28/2022 12:52 PM INSURANCE CLAIMS ADJUSTER): -per patient. Previous lipase from 10/11 noted [...] 09/24/2022 Assessment & Plan (09/24/2022 8:47 AM INSURANCE CLAIMS ADJUSTER): Does not want to have this treated but states that she was doing conuseling and keeping track of her triggers Mood disorder 09/24/2022 Assessment & Plan (05/22/2023 3:51 PM CDT): Patient agreeable to Psychiatry, I agree with patient and do suspect an ADHD component. Referral placed. S/P hysterectomy 09/24/2022 Assessment & Plan (01/20/2024 11:00 AM INSURANCE CLAIMS ADJUSTER): Patient has intact ovaries, which are likely gradually failing over time and causing vaginal dryness and dyspareunia. Partial small bowel obstruction 08/20/2022 Bleeding external hemorrhoids 03/12/2022 Irritable bowel syndrome with constipation 02/27 Assessment & Plan (10/28/2022 12:51 PM INSURANCE CLAIMS ADJUSTER): -ongoing for years. Previously followed by a riveter portable machine. + prior colonoscopy. No anemia. Normal menstruation. No history of melena or hematochezia. No family history of colon cancer. No family history of IBD. No weight changes. No relief with use of cjbr-ugk-kczdxyz laxatives. Patient is however not willing to [...] on 03/28/23 Pt has been referred to community specialist who tests for drug allergies so we may be able to take some allergies off her list. Assessment & Plan (09/24/2022 8:44 AM INSURANCE CLAIMS ADJUSTER): Following with GI - as per previous [...] colonoscopy Assessment & Plan (09/24/2022 8:49 AM INSURANCE CLAIMS ADJUSTER): Following with GI Assessment & Plan (04/21/2022 7:46 PM CDT): She manages with Golytely drink full gallon every couple weeks and happy with this so will continue the same. Rectal bleeding 04/05/2020 Overview (04/05/2020): Added automatically from request for surgery [id number] Assessment & Plan (04/05/2020 3:02 PM CDT): [...] 04/05/2020 Assessment & Plan (01/20/2024 10:55 AM INSURANCE CLAIMS ADJUSTER): BMI 26.56 Patient tries to actively manage [...] planned. Assessment & Plan (10/28/2022 12:53 PM INSURANCE CLAIMS ADJUSTER): -discussed the pathophysiology of gastroesophageal reflux disease [...] Urology Assessment & Plan (01/20/2024 10:54 AM INSURANCE CLAIMS ADJUSTER): Symptomatic today. UA unremarkable except for a trace of blood that patient reports is present chronically. Managed by Urology. Instructed to increase fluids. Assessment & Plan (03/24/2023 3:37 PM CDT): Patient had a cystoscopy recently per her Urologist that was normal. Has upcoming appointment with Dr Blanchard on 03/27/23. Incisional hernia, without obstruction or gangre ne 11/12/2018 Assessment & Plan (11/12/2018 10:52 AM INSURANCE CLAIMS ADJUSTER): Reducible, tender. May be the source of pain as it is so close to the umbilicus and patient cannot differentiate location pain. Umbilical pain 11/12/2018 Assessment & Plan (11/12/2018 10:53 AM INSURANCE CLAIMS ADJUSTER): Unable to feel defect but very tender, [...] Urology Assessment & Plan (01/20/2024 10:55 AM INSURANCE CLAIMS ADJUSTER): Chronic symptom not related to any acute cystitis Urethral stricture 10/30/2016 Overview (01/13/2024): Dr. Naren Ventura - Urology Irritable bowel syndrome 10/30/2016 Overview (01/13/2024): Dr. Ventura - urology Assessment & Plan (01/20/2024 10:56 AM INSURANCE CLAIMS ADJUSTER): Patient reports that managing her diet has helped control the chronic diarrhea. She is being managed by Dr. Milligan at [facility] Assessment & Plan (04/09/2023 9:35 [...] (01/13/2024): Added automatically from request for surgery [id number] Assessment & Plan (04/05/2020 3:01 PM CDT): [...] Bilateral tubal ligation CHOLECYSTECTOMY 11/17/2004 - 11/16/2005 MI SEPTOPLASTY/SUBMUCOUS RESECJ W/WO CARTILAGE GRF 2013,2014 x2 KNEE SURGERY 11/17/1991 - 11/16/1992 Right LAPAROSCOPIC RADHA FUNDOPLICATION 11/17/2003 - 11/16/2004 TONSILLECTOMY AND ADENOIDECTOMY 11/17/2002 - 11/16/2003 Tonsillectomy UMBILICAL HERNIA REPAIR 2015, 2017 Umbilical Hernia Repair x 2 TRIGGER FINGER RELEASE 11/17/2017 - 11/16/2018 Left middle HEMORRHOID SURGERY 10/17/2019 - 11/16/2019 Dr. Navarro at [facility] SURGERY HYSTERECTOMY 11/17/2011 - 11/16/2012 Hysterectomy BREAST [...] on file Legal Sex Female 12:19 AM INSURANCE CLAIMS ADJUSTER Gender Identity Not on file Sexual Orientation [...] 01/20/2024, 05/22/2023, Additional history exists Influenza Vaccine (#1) 2025 , 08/11/2020, 08/23/2019 Colon Cancer Screening-Colonoscopy 05/01/2033 05/01/2023, 04/15/2023, 04/24/2020, Additional history exists Hepatitis C Screening Completed 07/08/2019 Procedures Procedure Name Priority Date/Time Associated Diagnosis Comments SCREENING MAMMOGRAM BILATERAL W JOSE Schedule Routine, Read Routine (OP Routine) 10/03/2023 9:23 AM INSURANCE CLAIMS ADJUSTER Encounter for screening mammogram for malignant neoplasm of breast COLONOSCOPY 05/01/2023 10:01 AM CDT HEPATITIS C AB REFLEX RNA QUANT PCR Routine 07/08/2019 9:17 AM CDT from Last 3 Months or Most Recently Relevant to Health Maintenance Results * Screening Mammogram Bilateral W Jose (10/03/2023 9:23 AM INSURANCE CLAIMS ADJUSTER) Anatomical Region Laterality Modality Breast Bilateral Mammography Narrative 10/03/2023 1:15 PM INSURANCE CLAIMS ADJUSTER BILATERAL DIGITAL MAMMOGRAPHY The present examination has [...] Baeza MD - 05/01/2023 10:01 AM CDT [facility] Patient Name: Yaquelin Jauregui Procedure Date: 05/01/2023 10:01 AM Date of : 1975 Admit Type: Outpatient Age: 48 Gender: Female Attending MD: Justice Baeza M.D. Room: [facility] ENDOSCOPY ROOM 2 Note Status: Finalized Patient [...] procedure were verified by the physician, the deputy general counsel and the crime scene technician in the endoscopy suite. Mental Status [...] passed under directvision. The Pediatric Colonoscope PCF-H190L [id number] was introduced through the anus and advanced [...] 10:01 AM Procedure Code(s): --- Professional --- 75331, Colonoscopy, flexible; diagnostic, including collection of specimen(s) by brushing or washing, when performed (separateprocedure) --- Technical --- 80133, Colonoscopy, flexible; diagnostic, including collection of specimen(s) [...] congenital malformations of intestine CPT copyright 2020 [employer] [place] [employer]. All rights reserved. The codes documented in this report are preliminary and upon instructor of education reviewmay be revised to meet current compliance requirements. Recognized by the [place] [employer] for promoting quality in endoscopy Justice Baeza MD ENDOSCOPY PROCEDURES Final Resul t * Hepatitis C Antibody Reflex Hepatitis C RNA Quantitative PCR Blood (07/08/2019 9:17 AM CDT) Hep C Ab Negative Negative SAMMI WOODRUFF ([place]) Comment:Testing performed by : [facility], [address] [place] [address], [place]., [address] Blood specimen (specimen) 07/08/2019 9:17 AM CDT 07/08/2019 2:18 PM CDT Lakia King FIRE PROTECTION FABRICATOR LAB MICROBIOLOGY - GENERAL OR DERABLES Final Result [facility] ([place]) [facility] [place] [address] from Last 3 Months or Most Recently Relevant to Health Maintenance [place] Advance Directives For more information, please contact: [phone] * Full Code (Latest Code Status on [...] 8:25 AM 04/10/2023 8:25 AM Care Teams Land Conservation Specialist Relationship Specialty Start Date End Date Agatha Quiñones FIRE PROTECTION FABRICATOR [address] [place] [address] PCP - General Brush Material Preparer 01/20/24 Justice Baeza MD [address] [place] [address] [address] [place] [address] Consulting Physician Gastroenterology 04/09/23
--- OUTSIDE RECORDS SUMMARY | 2025-06-10 17:36 | XMS_ITS | Clinical Summary ---
Author Organization [facility] Address [address] [place] [address] Care Team Providers Care Seat Maker Name Role Phone Jami Ledesma BOW MAKER CUSTOM Primary Care Provider [phone] Source Comments This disclosure is being made pursuant to the Spring program and maynot contain all information available regarding this patient.[facility] Allergies Active Allergy Reactions Criticality Noted Date [...] (09/08/2024): Added automatically from request for surgery [id number] Incisional hernia, without o bstruction or gangrene 11/12/2018 09/08/2024 Umbilical pain 11/12/2018 09/08/2024 Pain in both feet 02/13/2016 09/08/2024 Pain of breast 05/15/2012 09/08/2024 Abnormal computed tomography of head 04/20/2012 09/08/2024 Overview (09/08/2024): Abnormal CT scan, head 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 09/08/2024 Overview (09/08/2024): Pineal gland cyst Encounters Date Type Department Care Team Description 05/30/2025 Telephone [facility] [address] [place] [phone] Lily Manriquez MA Called patient regarding MRI scheduling 05/30/2025 Telephone [facility] [address] [place] [phone] Lily Manriquez MA Patient called wanting MRI done at [place] 05/03/2025 3:40 PM CDT Office Visit [facility] [address] [place] [phone] Laura York, DPM Metatarsalgia of right foot (Primary Dx); Equinus contracture of right ankle; Muscle cramps; Chronic foot pain, right; Chronic pain of right ankle 05/02/2025 Travel 04/28/2025 Transcribe Orders [facility] [address] [place] [phone] Idalmis Richard NP Pain of foot, unspecified [...] Care Team (Late st Contact Info) Description 06/14/2025 3:50 PM CDT Appointment [facility] [address] [place] [phone] Laura York, DPAldo [address] [place] [address] Health Maintenance Due Date Last Done Comments [...] Visit 10/04/2023 10/04/2022 , 12/01/2018 COVID-19 Vaccine (1 - 2023-2 5 season) 2024 Influenza Vaccine (#1) 2025 , 08/11/2020, 08/23/2019 Breast Cancer Screening-Mammogram 10/03/2025 10/03/2023, 03/16/2021, 02/12/2019 Zoster (Shingles) Vaccine 50 + (1 of 2) 2027 RSV Adult (1 - 1-dose 75+ series) 2052 HIB Vaccine Aged Out No longer eligi ble based on patient's age to complete this topic HPV Vaccine (9-26yo & Shared Decision 27-45yo) Aged Out No longer eligible b ased [...] patient's age to complete this topic Insurance [facility] Care Teams Seat Maker Relationship Specialty Start Date End Date Jami Ledesma NP [address] [place] [address] PCP - General Nephrology 09/14/24
--- OUTSIDE RECORDS SUMMARY | 2025-06-10 17:37 | XMS_ITS | Encounter Summary ---
Author Organization [facility] Address [address] [place] [address] Phone Care Team Providers Care Dairy Farmer Name Role Phone Brian Lebron MD Primary Care Provider No, Physician Primary Care Provider Antonella Ivory DIGITAL PRODUCER Primary Care Provider [phone] No, Physician Primary Care Provider [phone] Char Chang DO Primary Care Provider + No, Physician Primary Care Provider [phone] Miscellaneous, Not In File Primary Care Provider Unavailable No, Physician Primary Care Provider Anaya Portillo MD Primary Care Provider [phone] Eda Alvarez MD Primary Care Provider + [phone] Dona Lamas MD Unavailable [phone] Mauri Dixon MD Primary Care Provider [phone] Mauri Dixon MD Primary Care Provider [phone] No, Physician Primary Care Provider No, Physician Primary Care Provider [phone] Lizeth Munguia DIGITAL PRODUCER Primary Care Provider + [phone] Raegan Mercado Primary Care Prov ider Will Briscoe DO Primary Care Provider + [phone] Raegan Mercado Primary Care Prov ider Raegan Mercado Primary Care Prov ider Will Briscoe DO Primary Care Provider + [phone] Raegan Mercado Primary Care Prov ider Will Briscoe DO Primary Care Provider + [phone] Cornelio Hernandez MD Primary Care Provider [phone] Anai Mullins MD Primary Care Provider [phone] Anai Mullins MD Primary Care Provider [phone] No, Physician Primary Care Provider [phone] Deirdre Bennett DIGITAL PRODUCER Primary Care Provider [phone] Justice Baeza MD Unavailable Agatha Quiñones DIGITAL PRODUCER Primary Care Provider [phone] Encounter Details Date Type Department Care Team (Late st Contact Info) Description 02/25/2018 Orders Only [facility] ProviderViola MD [address] [place] [address] Social History Tobacco Use Types Packs/Day Years Used Date Smoking Tobacco: Former Cigarettes Q uit: 11/17/2009 Alcohol Use Standard Drinks/Week Comments No 0 (1 standard drink = 0.6 oz pur e alcohol) Comments Unknown Sex and Gender Information Value Date Recorded Sex Assigned at Not on file Legal Sex Female 12:19 AM DIRECTOR OF PEOPLE Gender Identity Not on file Sexual Orientation [...] COVID: Suspected 11/16/2022 11/16/2022 11/16/2022 10:13 AM DIRECTOR OF PEOPLE COVID19 11/16/2022 11/16/2022 11/26/2022 3:05 AM DIRECTOR OF PEOPLE COVID: Recovered Comment:Added based on recent COVID infection. 11/26/2022 11/27/2022 02/24/2023 3:05 AM C DT COVID: Suspected 08/10/2023 08/10/2023 08/10/2023 9:04 AM CDT COVID: Suspected 01/13/2024 01/13/2024 01/13/2024 9:35 AM DIRECTOR OF PEOPLE COVID: Suspected 02/18/2024 02/18/2024 02/18/2024 9:47 AM CDT documented as of this encounter Care Teams Dairy Farmer Relationship Specialty Start Date End Date Brian Lebron MD [address] [facility] [address] [place] [id number] PCP - General 04/01/17 11/19/18 No, Physician PCP - General 11/20/18 01/04/19 Antonella Ivory NP PCP - General Gynecologic Oncology 01/05/19 01/09/19 No, Physician PCP - General 01/10/19 01/24/19 Char Chang DO [facility] [place] [address] PCP - General 01/25/19 06/22/19 No, Physician PCP - General 06/23/19 07/21/19 Miscellaneous, Not In File PCP - General 07/22/19 08/02/19 No, Physician PCP - General 08/03/19 08/29/19 Anaya Portillo MD [address] [facility] [address] [place] [address] PCP - General Family Medicine 08/30/19 09/23/19 Eda Alvarez MD [address] [facility] [address] [place] [address] PCP - General 09/24/19 07/03/21 Mauri Dixon MD [address] [facility] [address] [place] [address] PCP - General 07/04/21 07/05/21 Mauri Dixon MD [address] [facility] [address] [place] [address] PCP - General 07/06/21 08/05/21 No, Physician PCP - General 08/09/21 02/05/22 No, Physician PCP - General 08/06/21 08/08/21 Lizeth Munguia, ELENA [address] [facility] [address] [place] [address] PCP - General Nurse Practitioner 02/06/22 06/13/22 Raegan Mercado PA [address] [place], [place] [id number] PCP - General 06/14/22 06/27/22 Will Briscoe DO [address] [place], [place] [id number] PCP - General Family Medicine 06/28/22 07/03/22 Raegan Mercado PA [address] [place], [place] [id number] PCP - General 07/04/22 07/04/22 Raegan Mercado PA [address] [place], [place] [id number] PCP - General 07/05/22 07/09/22 Will Briscoe DO [address] [place] [address] PCP - General Family Medicine 07/10/22 07/12/22 Raegan Mercado PA [address] [place], [place] [id number] PCP - General 07/13/22 07/29/22 Will Briscoe DO [address] [place] [address] PCP - General Family Medicine 07/30/22 09/23/22 Cornelio Hernandez MD [address] [place] [address] PCP - General Family Medicine 09/24/22 01/02/23 Anai Mullins MD [address] [place] [address] PCP - General Obstetrics and Gynecology 01/03/2312/19 Anai Mullins MD [address] [place], [place] [id number] PCP - General Obstetrics and Gynecology 01/08/2301/15 No, Physician PCP - General 01/30/23 03/11/23 Deirdre Bennett NP [address] [facility] [address] [place], [place] [id number] PCP - General Family Medicine 03/12/23 01/19/24 Agatha Quiñones NP [address] [facility] [address] [place] [address] PCP - General Process Design Engineer 01/20/24 Dona Lamas MD [address] [facility] [address] ALYCIA Guerra [address] [address] Referring Physician Gastroenterology 10/12/19 03/11/23 Justice Baeza MD [address] [facility] [address] [place] [address] Consulting Physician Gastroenterology 04/09/23 documented as of this encounter
--- OUTSIDE RECORDS SUMMARY | 2025-06-10 17:37 | XMS_ITS | Clinical Summary ---
Author Organization [facility] Address [address] [facility] [place] [address] Phone Care Team Providers Care Data Management Specialist Name Role Phone Jorge Raygoza DPM Unavailable [phone] Jagdish Bryant MD Unavailable Dia Allen PLUMBING AND HEATING CONTRACTOR, CLASSIFICATION ANALYST Primary Care P rovider Mirtha Franklin MD Unavailable Allergies Active Allergy Reactions Criticality Noted Date [...] 02/17, 03/16/2021, Additional history exists Influenza Immunization (#1) 07/18/202508/18, 08/11/2020, 08/23/2019 Colonoscopy 05/01/2033 05/01/2023, 03/19, 06/11/2022, [...] OR DERABLES Final Result Performing Organization Address City/[facility]/ZIP Co de Phone Number SCAN from Last 3 Months or Most Recently Relevant to Health Maintenance Insurance [facility] Advance Directives * Full Code (Latest Code Status on File) Date Activated Date Inactivated Comments 08/20/2022 2:26 AM 08/22/2022 3:55 PM CPR-Full Joseph atment: FULL ARREST: Attempt Resuscitation/CPR wit intubation and mechanical ventilation. PRE-ARREST: Use entire range of life support measures to stabilize the patient. Care Teams Data Management Specialist Relationship Specialty Start Date End Date Dia Allen PLUMBING AND HEATING CONTRACTOR, CLASSIFICATION ANALYST [address] [place] [address] PCP - General Advanced Practice Nurse 02/14/23 Jorge Raygoza DPM Podiatry 02/29/16 Jagdish Bryant MD [address] [address] Consulting Physician Colon and Rectal Surgery 06/17/22 Mirtha Franklin MD [address] [place] [address] Consulting Physician Gastroenterology 12/12/22
[2025-06-10 17:48] VITALS: BP 111/87; PULSE 58; RESP 16; TEMP 36.1; O2SAT 99
[2025-06-10 17:50] LABS: EDUAAPPEAR Clear; EDUABILI Negative (Negative); EDUABLOOD Trace (Negative); EDUACOLOR1 Tea Colored; EDUAGLUCOSE Negative (Negative); EDUAKETONE Negative (Negative); EDUALEUKO Negative (Negative); EDUANITRATE Negative (Negative); EDUAPH 6.0; EDUAPROTEIN Negative (Negative); EDUASPGRAVITY 1.025; EDUAUROBILI 0.2
--- NOTE | 2025-06-10 17:55 | ED_ITS ---
HPI - Female Genitourinary General Chief complaint: Urogenital-Female Stated complaint: Urinary Problem Time Seen by Provider: 06/10/25 17:55 Source: patient Mode of arrival: ambulatory Limitations: no limitations History of Present Illness HPI Narrative: 50-year-old female with history of interstitial sinus presents with complaint of urinary frequency. Wants to make sure she does not have urinary tract infection. Patient is well-appearing, nontoxic. Afebrile. No chills or body aches. Denies nausea vomiting. All systems reviewed and negative except as noted above. Related Data Home Medications ?Medication ?Instructions ?Recorded ?Confirmed ?Last Taken ?Type No Home Medications 07/06/24 06/10/25 Unknown History Allergies Allergy/AdvReac Type Severity Reaction Status Date / Time amoxicillin AdvReac Intermediate Chest Pain Verified 06/10/25 17:37 codeine AdvReac Intermediate Nausea and Verified 06/10/25 17:37 Vomiting ketorolac (From Toradol) AdvReac Intermediate Palpitation Verified 06/10/25 17:37 s levofloxacin (From Levaquin) AdvReac Intermediate Chest Pain Verified 06/10/25 17:37 nitrofurantoin (From AdvReac Intermediate Chest Pain Verified 06/10/25 17:37 Macrobid) Penicillins AdvReac Intermediate Chest Pain Verified 06/10/25 17:37 Sulfa (Sulfonamide AdvReac Intermediate Chest Pain Verified 06/10/25 17:37 Antibiotics) vancomycin AdvReac Intermediate Chest Pain Verified 06/10/25 17:37 acetaminophen AdvReac Mild Hives Verified 06/10/25 17:37 clindamycin AdvReac Mild Hives Verified 06/10/25 17:37 gadobenic acid (From AdvReac Mild Hives Verified 06/10/25 17:37 contrast - MRI) hydrocodone AdvReac Mild Hives Verified 06/10/25 17:37 iohexol (From contrast - CT, AdvReac Mild Hives Verified 06/10/25 17:37 X-RAY) latex AdvReac Mild RASH-CONDOMS Verified 06/10/25 17:37 AND GLOVES lubiprostone (From Amitiza) AdvReac Mild Itching Verified 06/10/25 17:37 paroxetine (From Paxil) AdvReac Mild Hives Verified 06/10/25 17:37 propoxyphene (From AdvReac Mild Itching Verified 06/10/25 17:37 Darvocet-N 100) Review of Systems Review of Systems: CONSTITUTIONAL: Denies fever, chills, or sweats. EYES: Denies visual changes, redness, or discharge. ENT: Denies rhinorrhea, congestion, sore throat, or otalgia. CARDIOVASCULAR: Denies chest pain, palpitations, or edema. RESPIRATORY: Denies cough or dyspnea. GASTROINTESTINAL: Denies abdominal pain, nausea, vomiting, or diarrhea. GENITOURINARY: Denies dysuria or hematuria. Reports urinary frequency. SKIN: Denies rash or itching. MUSCULOSKELETAL: Denies back pain, joint pain, or myalgia. NEUROLOGIC: Denies headache, numbness, or weakness. PSYCHIATRIC: Denies anxiety or depression. All other systems reviewed are negative, except as documented in HPI. [facility] Past Medical History Medical History Family history of malignant neoplasm of colon in father Irritable bowel syndrome with constipation Vaginal delivery Right hand fracture GERD (gastroesophageal reflux disease) Anxiety Depression Urinary tract infection Genitourinary disorder Interstitial cystitis, urethral dilation Constipation Irritable bowel syndrome Bronchitis Mitral valve prolapse Interstitial cystitis Surgical History Surgical History H/O umbilical hernia repair History of urinary tract surgery History of hysterectomy H/O hemorrhoidectomy History of orthopedic surgery Right knee, trigger release finger left hand H/O tubal ligation H/O sinus surgery History of tonsillectomy History of facial surgery Nasal reconstruction Family History Family History Grandparent Diabetes mellitus, Onset Age: 200 Cerebrovascular accident, Onset Age: 200 Father Family history of elevated blood lipids Carcinoma of colon Family history of coronary artery disease, Onset Age: 201 Patient's father is Grandparent Family history of malignant neoplasm Diabetes mellitus Cerebrovascular accident Hypertension Family history of cardiovascular disease Father Family history of congestive heart failure Patient's father is Hypertension Carcinoma of colon Family history of emphysema Family history of cardiovascular disease Sibling Hypertension Grandparent Diabetes mellitus Social History Social History Social History: no caffeine use Smoking packs per day: 1.5 Smoking cigarettes per day: 30.0 Years smoked: 13 Smoking pack-years: 19.50 Smoking status: Former smoker Tobacco type: cigarettes Second hand tobacco smoke exposure: No Smoking end date: 07/06/10 Alcohol intake: never Substance use: never Living arrangements: with family Additional living arrangements comments: Alfonso [phone] Occupation/Education: unemployed Gender identity (if verbalized by the patient): Female Sexual Orientation (if Verbalized by the Patient): Straight or Heterosexual Spiritual care concerns: No Comments At time of signature, agree with nursing past medical, surgical, social and family history. There is no relevant family history pertinent to the presenting complaint. Exam Narrative: GENERAL: This is a well-nourished, well-developed patient, in no apparent distress. HEAD: normocephalic, atraumatic. EYES: PERRL. Sclera clear/white. Vision is grossly intact. EARS: External ears normal NOSE: External nose normal NECK: Neck supple, non-tender without lymphadenopathy, masses or thyromegaly. CARDIOVASCULAR: Regular rate and rhythm without murmurs, gallops, or rubs. RESPIRATORY: Clear to auscultation. Breath sounds equal bilaterally. No wheezes, rales, or rhonchi. SKIN: warm, Dry, intact with no suspicious lesions or rash, good texture and tur gor. NEURO: awake, alert, and oriented to person, place and time. There were no obvious focal neurologic abnormalities. EXTREMITIES: No joint tenderness, effusion, or edema noted. Course Course Level of Care: Express Care Visit Vital Signs Vital signs: Vital Signs Temperature 36.1 C L 06/10/25 17:48 Pulse Rate 58 L 06/10/25 17:48 Respiratory Rate 16 06/10/25 17:48 Blood Pressure 111/87 06/10/25 17:48 Pulse Oximetry 99 06/10/25 17:48 Oxygen Delivery Room Air 06/10/25 17:48 Temperature 36.1 C L 06/10/25 17:48 Pulse Rate 58 L 06/10/25 17:48 Respiratory Rate 16 06/10/25 17:48 Blood Pressure 111/87 06/10/25 17:48 Pulse Oximetry 99 06/10/25 17:48 Oxygen Delivery Room Air 06/10/25 17:48 Reviewed MDM - Female Genitourinary MDM Narrative Medical decision making narrative: urinalysis trace blood. Urine culture ordered. Will wait for urine culture results prior to treating with antibiotics. Patient agrees with plan of care. Lab Data Labs: Lab Results 06/10/25 Range/Units 17:48 POC Urine Color Tea colored POC Urine Clarity Clear POC Urine pH 6.0 POC Ur Specif Mcandrews 1.025 POC Urine Protein Negative (Negative) POC Ur Glucose (UA) Negative (Negative) POC Urine Ketones Negative (Negative) POC Urine Blood Trace (Negative) POC Urine Nitrite Negative (Negative) POC Urine Bilirubin Negative (Negative) POC Urine Urobilinogen 0.2 POC U Leukocyte Esteras Negative (Negative) Discharge Plan Discharge Clinical Impression: Urinary frequency Patient Disposition: Home Condition: Stable Instructions: Urinary Urgency and Frequency (DC) Additional Instructions: your urinalysis was normal today. A urine culture was ordered. Results will take 48-72 hours. If your urine culture is positive we will call you at that time and prescribed an antibiotic. Follow-up with your primary care physician as needed. Patient Language: Chinese Prescriptions: No Action No Home Medications Follow-up/Referrals: PHYSICIAN,PARCEL POST OFFICER [Primary Care Provider] - Time of Disposition: 17:56
== END 2025-06-10 17:59 | disposition home or self-care (01) ==
PROVIDERS: Emergency Provider Nurse Practitioner Family
DX: R35.0 Frequency of micturition (principal); N30.10 Interstitial cystitis (chronic) without hematuria; K21.9 Gastro-esophageal reflux disease without esophagitis; I34.1 Nonrheumatic mitral (valve) prolapse; Z87.891 Personal history of nicotine dependence
CPT/HCPCS: 81003; 87086; 99213; G0463

== ENCOUNTER 2025-06-24 13:32 | Emergency (ER) | payer BC, SELFPAY ==
--- OUTSIDE RECORDS SUMMARY | 2025-06-24 13:35 | XMS_ITS | Encounter Summary ---
Author Organization [facility] Address [address] [place] [address] Phone Care Team Providers Care Last Waxer Name Role Phone Jorge Raygoza DPM Unavailable [phone] Jagdish Bryant MD Unavailable Will Briscoe DO Primary Care Provider [phone] Cornelio Hernandez MD Primary Care Provider [phone] Anai Mullins MD Primary Care Provider [phone] Dia Allen APRN, GLOBAL CREATIVE CHAIRMAN Primary Care P rovider Mirtha Franklin MD Unavailable [phone] Reason for Visit * Reason Onset Date Comments New Patient 08/13/2022 Encounter Details Date Type Department Care Team (Late st Contact Info) Description 08/13/2022 Telephone [facility] [address] [place] [address] Provider, None [place] New Patient [...] 08/13/2022 2:41 PM CDT ----- Message from [facility] sent at 08/12/2022 6:12 PM CDT ----- Regarding: New Patient New [facility] Primary Provider Request Insurance of patient: [place] Name of person calling: Yaquelin Jauregui Relationship to patient: Self Preferred phone number: [phone] Alternate phone number: n/a [facility] / [facility] [address] Provider preference (male/female, specific provider name): Rossi Villalta Willing to see someone other than physician, such as ANDREY, ANNETTE, resident? yes Patient reason for appointment/any current symptoms: Establish Care- Gastro Referral Other information (including need for seismic interpreter): No * Telephone Encounter - Heavenly Allred - 08/13/2022 2:40 PM CDT ----- Message from Bel Vinogerda [email or web address] sent at 08/12/2022 6:12 PM CDT ----- Regarding: New Patient New [facility] Primary Provider Request Insurance of patient: [place] Name of person calling: Yaquelin Jauregui Relationship to patient: Self Preferred phone number: [phone] Alternate phone number: n/a Region / Office location preference: [facility] [address] Provider preference (male/female, specific provider name): Rossi Villalta Willing to see someone other than physician, such as BEHAVIORAL HEALTH CARE COORDINATOR, PA, resident? yes Patient reason for appointment/any current symptoms: Establish Care- Gastro Referral Other information (including need for seismic interpreter): No documented in this encounter Plan of Treatment Not on file documented as of this encounter Visit Diagnoses Not on filedocumented in this encounter Additional Health Concerns Infection Onset Date Last Indicated Resolved Time COVID - 19 Confirmed 09/15/2022 09/15/2022 022 12:16 AM ARCHITECT documented as of this encounter Care Teams Last Waxer Relationship Specialty Start Date End Date Will Briscoe DO [address] [address] PCP - General Family Medicine 07/18/22 08/22/22 Cornelio Hernandez MD [address] [facility] [address] [place] [address] PCP - General Implant Coordinator 08/25/22 12/31/22 Anai Mullins MD 2 [facility] [address] [address] PCP - General Family Medicine 01/01/23 02/13/23 Dia Allen APRN, GLOBAL CREATIVE CHAIRMAN [address] [place] [address] PCP - General Advanced Practice Nurse 02/14/23 Jorge Raygoza DPM Podiatry 02/29/16 Jagdish Bryant MD [address] [address] Consulting Physician Colon and Rectal Surgery 06/17/22 Mirtha Franklin MD [address] [place] [address] Consulting Physician Gastroenterology 12/12/22 documented as of this encounter
--- OUTSIDE RECORDS SUMMARY | 2025-06-24 13:35 | XMS_ITS | Encounter Summary ---
Author Organization [facility] Address [address] [place] [address] Care Team Providers Care Oracle Application Architect Name Role Phone BaltazarJami Danay PARKER Primary Care Provider [phone] Encounter Details Date Type Department Care Team (Late st Contact Info) Description 06/14/2025 Orders Only [facility] Centralized Scanning Laura York, DPM [address] [place] [address] Metatarsalgia of right foot; Equinus contracture of right ankle; Muscle cramps; Chronic foot pain, right; Chronic pain of right ankle Social History Tobacco Use Types Packs/Day Years Used Date Smoking Tobacco: Former Cigarettes Passive Smoke Exposure: Never Smokeless Tobacco: Never Alcohol Use Standard Drinks/Week Comments Never 0 (1 standard drink = 0.6 oz pur e alcohol) PHQ-2 Answer Date Recorded PHQ-2 Total Score 0 09/08/2024 Comments No Sex and Gender Information Value Date Recorded Sex Assigned at Not on file Legal Sex Female 12:49 PM CDT Gender Identity Female 08/02/2024 8:03 AM CDT Sexual Orientation Not on file documented as of this encounter Plan of Treatment Not on file documented as of this encounter Procedures Procedure Name Priority Date/Time Associated Diagnosis Comments MRI FOOT WO CONTRAST STAT 06/13/2025 1:29 PM C DT Metatarsalgia of right foot Equinus contracture of right ankle Muscle cramps Chronic foot pain, right Chronic pain of right ankle documented in this encounter Results * MRI Foot wo Contrast (06/13/2025 1:29 PM CDT) Anatomical Region Laterality Modality Foot Magnetic Resonan ce Laura York DPM IMG MRI ORDERABLES Final Re sult documented in this encounter Visit Diagnoses Diagnosis Metatarsalgia of right foot Enthesopathy of ankle and tarsus, unspecified Equinus contracture of right ankle Muscle cramps Cramp of limb Chronic foot pain, right Chronic pain of right ankle documented in this encounter Additional Health Concerns Assessment Noted Time PHQ-9 Depression Total Score: 0 09/08/20 4:05 PM CDT A Body Mass Index follow-up plan has been documented for the patient 09/08/2024 4:54 PM CDT documented as of this encounter Care Teams Oracle Application Architect Relationship Specialty Start Date End Date Jami Ledesma NP [address] [place] [address] PCP - General Nephrology 09/14/24 documented as of this encounter
--- OUTSIDE RECORDS SUMMARY | 2025-06-24 13:35 | XMS_ITS | Encounter Summary ---
Author Organization [employer] Address [address] [place] [address] Care Team Providers Care Educational Technologist Name Role Phone BaltazarJami Danay PARKER Primary Care Provider Encounter Details Date Type Department Care Team (Late st Contact Info) Description 06/14/2025 Orders Only [facility] Centralized Scanning Laura York, DPM [address] [place] [address] Metatarsalgia of right foot; Equinus [...] Name Priority Date/Time Associated Diagnosis Comments MRI ANKLE WO CONTRAST Routine 06/13/2025 1:51 PM CDT Metatarsalgia of right foot Equinus contracture of right ankle Muscle cramps Chronic foot pain, right Chronic pain of right ankle documented in this encounter Results * MRI Ankle wo Contrast (06/13/2025 1:51 PM CDT) Anatomical Region Laterality Modality Leg, Ankle, Foot Magnetic Resona nce Laura York DPAldo IMG MRI ORDERABLES Final Re sult documented [...] documented as of this encounter Care Teams Educational Technologist Relationship Specialty Start Date End Date Jami Ledesma NP [address] [place] [address] PCP - General Nephrology 09/14/24 documented as of this encounter
--- OUTSIDE RECORDS SUMMARY | 2025-06-24 13:35 | XMS_ITS | Patient Health Record ---
Author Organization [facility] [place] ([address]) Address [address] [place] [address] Care Team Providers Care Rn Social Services Name Role Phone Deirdre Bennett Primary Care Provider Edmond Matson [phone] Allergies Allergen (clinical drug ingredient) Drug/Non Drug [...] Status Risk Notes Problem Allergy to penicillin (37272604) Allergy status to penicillin (Z88.0) Active confirmed Problem Chronic rhinitis (45399618) Chronic rhinitis (J31.0) Active confirmed Problem Hypertrophy of nasal turbinates (50904536) Hypertrophy of nasal turbinates (J34.3) Active confirmed Problem Gastro-esophag eal reflux disease without esophagitis (929697529) Gastro-esophageal reflux disease without esophagitis (K21.9) Active confirmed Problem Irritable bowel syndrome with diarrhea (380150050) Irritable bowel syndrome with diarrhea (K58.0) Active confirmed Problem Sulfonamide adverse reaction (948366523) Adverse effect of sulfonamides, initial encounter (T37.0X5A) Active confirmed Problem Adverse effect o f antimycobacterial drugs, initial encounter (T37.1X5A) Active confirmed Problem Adverse reaction to food (197300781) Other adverse food reactions, not elsewhere classified, initial encounter (T78.1XXA) Active confirmed Problem Allergy status t o other antibiotic agents (Z88.1) Active confirmed Problem Allergy status t o analgesic agent (Z88.6) Active confirmed Plan Of Treatment No Information Insurance Providers Payer Name Payer Address Payer Phone Subscriber Number Group Number Insured Name Patient Relationship to Insured Coverage Start Date Coverage End Date [facility] [address] [place] [address] [phone] [id number] JuventinoYaquelin Self - patient is the insured Medical (General) History Medical History History ICD Code Irritable bowel syndrome with diarrhea K 58.0 Gastro-esophageal reflux disease without esophagitis K21.9 Surgical History Surgery Date(Month/Year) Belly button mesh repair 3 time around 0 08/13/2023 Nose repairb 12/09/2016
--- OUTSIDE RECORDS SUMMARY | 2025-06-24 13:36 | XMS_ITS | Clinical Summary ---
Author Organization [facility] Address [address] [place] [address] Phone Care Team Providers Care Application Integration Architect Name Role Phone Unavailable Primary Care Provider [...] VACCINE (#1) 2025 , 08/11/2020, 08/23/[address] [facility] [employer] MEDICAID
--- OUTSIDE RECORDS SUMMARY | 2025-06-24 13:36 | XMS_ITS | Clinical Summary ---
Author Organization [facility] Address [address] [place] [address] Care Team Providers Care Russian Rubber Name Role Phone Aryan Justice ARANGO Unavailable Agatha Quiñones NP Primary Care Provider [phone] Allergies Active Allergy Reactions Criticality Noted Date [...] 01/20/2024 Assessment & Plan (01/20/2024 10:58 AM FLUE TILE PRESS OPERATOR): Discussed diagnosis. Patient does not want HRT including vaginal estrogen cream. Does not like lubricants. Screening for thyroid disorder 01/20/2024 Assessment & Plan (01/20/2024 10:59 AM FLUE TILE PRESS OPERATOR): TSH ordered to be done before annual physical in May Screening, anemia, deficiency, iron 01/20/2024 Assessment & Plan (01/20/2024 10:59 AM FLUE TILE PRESS OPERATOR): Labs ordered for before annual physical in May Screening for lipid disorders 01/20/2024 Assessment & Plan (01/20/2024 10:59 AM FLUE TILE PRESS OPERATOR): Lipid panel ordered for May Screening for diabetes mellitus 01/20/2024 Assessment & Plan (01/20/2024 10:59 AM FLUE TILE PRESS OPERATOR): CMP ordered before annual physical in May Acute otitis media 01/13/2024 Asthma 01/13/2024 Assessment & Plan (01/20/2024 10:57 AM FLUE TILE PRESS OPERATOR): Patient denies any shortness of breath. States [...] 10/28/2022 Assessment & Plan (10/28/2022 12:52 PM FLUE TILE PRESS OPERATOR): -per patient. Previous lipase from 10/11 noted [...] 09/24/2022 Assessment & Plan (09/24/2022 8:47 AM FLUE TILE PRESS OPERATOR): Does not want to have this treated but states that she was doing conuseling and keeping track of her triggers Mood disorder 09/24/2022 Assessment & Plan (05/22/2023 3:51 PM CDT): Patient agreeable to Psychiatry, I agree with patient and do suspect an ADHD component. Referral placed. S/P hysterectomy 09/24/2022 Assessment & Plan (01/20/2024 11:00 AM FLUE TILE PRESS OPERATOR): Patient has intact ovaries, which are likely gradually failing over time and causing vaginal dryness and dyspareunia. Partial small bowel obstruction 08/20/2022 Bleeding external hemorrhoids 03/12/2022 Irritable bowel syndrome with constipation 02/27 Assessment & Plan (10/28/2022 12:51 PM FLUE TILE PRESS OPERATOR): -ongoing for years. Previously followed by a audit intern. + prior colonoscopy. No anemia. Normal menstruation. No history of melena or hematochezia. No family history of colon cancer. No family history of IBD. No weight changes. No relief with use of lyvm-azt-xelqtkp laxatives. Patient is however not willing to [...] on 03/28/23 Pt has been referred to collection card clerk who tests for drug allergies so we may be able to take some allergies off her list. Assessment & Plan (09/24/2022 8:44 AM FLUE TILE PRESS OPERATOR): Following with GI - as per previous [...] colonoscopy Assessment & Plan (09/24/2022 8:49 AM FLUE TILE PRESS OPERATOR): Following with GI Assessment & Plan (04/21/2022 7:46 PM CDT): She manages with Golytely drink full gallon every couple weeks and happy with this so will continue the same. Rectal bleeding 04/05/2020 Overview (04/05/2020): Added automatically from request for surgery [id number] Assessment & Plan (04/05/2020 3:02 PM CDT): [...] 04/05/2020 Assessment & Plan (01/20/2024 10:55 AM FLUE TILE PRESS OPERATOR): BMI 26.56 Patient tries to actively manage [...] planned. Assessment & Plan (10/28/2022 12:53 PM FLUE TILE PRESS OPERATOR): -discussed the pathophysiology of gastroesophageal reflux disease [...] Urology Assessment & Plan (01/20/2024 10:54 AM FLUE TILE PRESS OPERATOR): Symptomatic today. UA unremarkable except for a trace of blood that patient reports is present chronically. Managed by Urology. Instructed to increase fluids. Assessment & Plan (03/24/2023 3:37 PM CDT): Patient had a cystoscopy recently per her Urologist that was normal. Has upcoming appointment with Dr Blanchard on 03/27/23. Incisional hernia, without obstruction or gangre ne 11/12/2018 Assessment & Plan (11/12/2018 10:52 AM FLUE TILE PRESS OPERATOR): Reducible, tender. May be the source of pain as it is so close to the umbilicus and patient cannot differentiate location pain. Umbilical pain 11/12/2018 Assessment & Plan (11/12/2018 10:53 AM FLUE TILE PRESS OPERATOR): Unable to feel defect but very tender, [...] Urology Assessment & Plan (01/20/2024 10:55 AM FLUE TILE PRESS OPERATOR): Chronic symptom not related to any acute cystitis Urethral stricture 10/30/2016 Overview (01/13/2024): Dr. Naren Ventura - Urology Irritable bowel syndrome 10/30/2016 Overview (01/13/2024): Dr. Ventura - urology Assessment & Plan (01/20/2024 10:56 AM FLUE TILE PRESS OPERATOR): Patient reports that managing her diet has helped control the chronic diarrhea. She is being managed by [facility] Mill[place] [facility] [place] Assessment & Plan (04/09/2023 9:35 AM CDT): [...] (01/13/2024): Added automatically from request for surgery [id number] Assessment & Plan (04/05/2020 3:01 PM CDT): [...] Bilateral tubal ligation CHOLECYSTECTOMY 11/17/2004 - 11/16/2005 RI SEPTOPLASTY/SUBMUCOUS RESECJ W/WO CARTILAGE GRF 2013,2014 x2 KNEE SURGERY 11/17/1991 - 11/16/1992 Right LAPAROSCOPIC RADHA FUNDOPLICATION 11/17/2003 - 11/16/2004 TONSILLECTOMY AND ADENOIDECTOMY 11/17/2002 - 11/16/2003 Tonsillectomy UMBILICAL HERNIA REPAIR 2015, 2017 Umbilical Hernia Repair x 2 TRIGGER FINGER RELEASE 11/17/2017 - 11/16/2018 Left middle HEMORRHOID SURGERY 10/17/2019 - 11/16/2019 Dr. Navarro at [facility] SURGERY HYSTERECTOMY 11/17/2011 - 11/16/2012 [...] on file Legal Sex Female 12:19 AM FLUE TILE PRESS OPERATOR Gender Identity Not on file Sexual Orientation [...] Read Routine (OP Routine) 10/03/2023 9:23 AM FLUE TILE PRESS OPERATOR Encounter for screening mammogram for malignant neoplasm of breast COLONOSCOPY 05/01/2023 10:01 AM CDT HEPATITIS C AB REFLEX RNA QUANT PCR Routine 07/08/2019 9:17 AM CDT from Last 3 Months or Most Recently Relevant to Health Maintenance Results * Screening Mammogram Bilateral W Jose (10/03/2023 9:23 AM FLUE TILE PRESS OPERATOR) Anatomical Region Laterality Modality Breast Bilateral Mammography Narrative 10/03/2023 1:15 PM FLUE TILE PRESS OPERATOR BILATERAL DIGITAL MAMMOGRAPHY The present examination has [...] Baeza MD - 05/01/2023 10:[address] [facility] Patient Name: Yaquelin Jauregui Procedure Date: 05/01/2023 10:01 AM Date of : 1975 Admit Type: Outpatient Age: 48 Gender: Female Attending MD: Justice Baeza M.D. Room: [facility] END[facility]COPY ROOM 2 Note Status: Finalized Patient [...] Colitis, presumed infectious, IBS-C Referring MD: Lelia FautsNDrewP. Providers: Justice Baeza M.D. Impression: - Preparation [...] procedure were verified by the physician, the sales floor associate and the motion picture camera lens technician in the endoscopy suite. Mental Status [...] passed under directvision. The Pediatric Colonoscope [id number] was introduced through the anus and advanced [...] 10:01 AM Procedure Code(s): --- Professional --- 75080, Colonoscopy, flexible; diagnostic, including collection of specimen(s) by brushing or washing, when performed (separateprocedure) --- Technical --- 98968, Colonoscopy, flexible; diagnostic, including collection of specimen(s) [...] congenital malformations of intestine CPT copyright 2020 [employer]. All rights reserved. The codes documented in this report are preliminary and upon mine manager reviewmay be revised to meet current compliance requirements. Recognized by the [place] for promoting quality in endoscopy Justice Baeza MD ENDOSCOPY PROCEDURES Final Resul t * Hepatitis C Antibody Reflex Hepatitis C RNA Quantitative PCR Blood (07/08/2019 9:17 AM CDT) Hep C Ab Negative Negative SAMMI WOODRUFF ([place]) Comment:Testing performed by : [facility], [address] [place] [address], [place]., [address] Blood specimen (specimen) 07/08/2019 9:17 AM CDT 07/08/2019 2:18 PM CDT Lakia King WOODS OVERSEER LAB MICROBIOLOGY - GENERAL OR DERABLES Final Result [facility] ([place]) [facility] Department [place] [address] from Last 3 Months or Most Recently Relevant to Health Maintenance [place] Advance Directives For more information, please contact: [phone] * Full Code (Latest Code Status on [...] 8:25 AM 04/10/2023 8:25 AM Care Teams Russian Rubber Relationship Specialty Start Date End Date Agatha Quiñones WOODS OVERSEER [address] [place] [address] PCP - General Tar Leveler 01/20/24 Justice Baeza MD [address] [place] [address] [address] [place] [address] Consulting Physician Gastroenterology 04/09/23
--- OUTSIDE RECORDS SUMMARY | 2025-06-24 13:36 | XMS_ITS | Encounter Summary ---
Author Organization [facility] Address [address] [place] [address] Phone Care Team Providers Care Bulker Name Role Phone Brian Lebron MD Primary Care Provider No, Physician Primary Care Provider Antonella Ivory CLERK CARRIER Primary Care Provider [phone] No, Physician Primary Care Provider [phone] Char Chang DO Primary Care Provider + No, Physician Primary Care Provider [phone] Miscellaneous, Not In File Primary Care Provider Unavailable No, Physician Primary Care Provider Anaya Portillo MD Primary Care Provider [phone] Eda Alvarez MD Primary Care Provider + [phone] Dona Lamas MD Unavailable [phone] Mauri Dixon MD Primary Care Provider [phone] Mauri Dixon MD Primary Care Provider [phone] No, Physician Primary Care Provider No, Physician Primary Care Provider [phone] Lizeth Munguia CLERK CARRIER Primary Care Provider + [phone] Raegan Mercado Primary Care Prov ider Will Briscoe DO Primary Care Provider + [phone] Raegan Mercado Primary Care Prov ider Raegan Mercado Primary Care Prov ider Will Briscoe DO Primary Care Provider + [phone] Raegan Mercado Primary Care Prov ider Will Brisceo DO Primary Care Provider + [phone] Cornelio Hernandez MD Primary Care Provider [phone] Anai Mullins MD Primary Care Provider [phone] Anai Mullins MD Primary Care Provider [phone] No, Physician Primary Care Provider [phone] Deirdre Bennett CLERK CARRIER Primary Care Provider [phone] Justice Baeza MD Unavailable Agatha Quiñones CLERK CARRIER Primary Care Provider [phone] Encounter Details Date Type Department Care Team (Late st Contact Info) Description 02/25/2018 Orders Only [facility] ProviderViola MD [address] [place] [address] Social History Tobacco Use Types Packs/Day Years Used Date Smoking Tobacco: Former Cigarettes Q uit: 11/17/2009 Alcohol Use Standard Drinks/Week Comments No 0 (1 standard drink = 0.6 oz pur e alcohol) Comments Unknown Sex and Gender Information Value Date Recorded Sex Assigned at Not on file Legal Sex Female 12:19 AM SALES SPECIALIST Gender Identity Not on file Sexual Orientation [...] COVID: Suspected 11/16/2022 11/16/2022 11/16/2022 10:13 AM SALES SPECIALIST COVID19 11/16/2022 11/16/2022 11/26/2022 3:05 AM SALES SPECIALIST COVID: Recovered Comment:Added based on recent COVID infection. 11/26/2022 11/27/2022 02/24/2023 3:05 AM C DT COVID: Suspected 08/10/2023 08/10/2023 08/10/2023 9:04 AM CDT COVID: Suspected 01/13/2024 01/13/2024 01/13/2024 9:35 AM SALES SPECIALIST COVID: Suspected 02/18/2024 02/18/2024 02/18/2024 9:47 AM CDT documented as of this encounter Care Teams Bulker Relationship Specialty Start Date End Date Brian Lebron MD [address] [facility] [address] [place] [id number] PCP - General 04/01/17 11/19/18 No, Physician PCP - General 11/20/18 01/04/19 Antonella Ivory NP PCP - General Gynecologic Oncology 01/05/19 01/09/19 No, Physician PCP - General 01/10/19 01/24/19 Char Chang DO [facility] [place] [address] PCP - General 01/25/19 06/22/19 No, Physician PCP - General 06/23/19 07/21/19 Miscellaneous, Not In File PCP - General 07/22/19 08/02/19 No, Physician PCP - General 08/03/19 08/29/19 Anaya Portillo MD [address] [facility] [address] [place] [address] PCP - General Family Medicine 08/30/19 09/23/19 Eda Alvarez MD [address] [facility] [address] [place] [address] PCP - General 09/24/19 07/03/21 Mauri Dixon MD [address] [facility] [address] [place] [address] PCP - General 07/04/21 07/05/21 Mauri Dixon MD [address] [facility] [address] [place] [address] PCP - General 07/06/21 08/05/21 No, Physician PCP - General 08/09/21 02/05/22 No, Physician PCP - General 08/06/21 08/08/21 Lizeth Munguia, ELE[place] [address] [facility] [address] [place] [address] PCP - General Nurse Practitioner 02/06/22 06/13/22 Raegan Mercado PA [address] [place], [place] [id number] PCP - General 06/14/22 06/27/22 Will Briscoe DO [address] [place], [place] [address] PCP - General Family Medicine 06/28/22 07/03/22 Raegan Mercado PA [address] [place], [place] [id number] PCP - General 07/04/22 07/04/22 Raegan Mercado PA [address] [place], [place] 1545224 PCP - General 07/05/22 07/09/22 Will Briscoe DO [address] [place] [address] PCP - General Family Medicine 07/10/22 07/12/22 Raegan Mercado PA [address] [place], [place] 4997824 PCP - General 07/13/22 07/29/22 Will Briscoe DO [address] [place] [address] PCP - General Family Medicine 07/30/22 09/23/22 Cornelio Hernandez MD [address] [place] [address] PCP - General Family Medicine 09/24/22 01/02/23 Anai Mullins MD [address] [place] [address] PCP - General Obstetrics and Gynecology 01/03/2312/19 Anai Mullins MD [address] [place], [place] [address] PCP - General Obstetrics and Gynecology 01/08/2301/15 No, Physician PCP - General 01/30/23 03/11/23 Deirdre Bennett NP [address] [facility] [address] [place], [place] [address] PCP - General Family Medicine 03/12/23 01/19/24 Agatha Quiñones NP [address] [facility] [address] [place] [address] PCP - General Nanofabrication Specialist 01/20/24 Dona Lamas MD [address] [facility] [address] [address] Referring Physician Gastroenterology 10/12/19 03/11/23 Justice Baeza MD [address] [facility] [address] [place] [address] Consulting Physician Gastroenterology 04/09/23 documented as of this encounter
--- OUTSIDE RECORDS SUMMARY | 2025-06-24 13:36 | XMS_ITS | Patient Health Record ---
Author Organization [facility] Address [address] [place] [address] Care Team Providers Care Winder Fixer Name Role Phone Luann Price Unavailable [phone] Reason For Referral No Information Immunizations Vaccine Route Administration Date Status Comme nts Influenza, injectable, MDCK, preservative free Unknown 08/23/2019 Administered Influenza, injectable, MDCK, preservative free Unknown 09/08/2021 Administered Novel [id number], preservative free Unknown 08/11/2020 Administered Plan Of Treatment No Information Insurance Providers Payer Name Payer Address Payer Phone Subscriber Number Group Number Insured Name Patient Relationship to Insured Coverage Start Date Coverage End Date [place] [employer] Ppo [address] [place] [address] [id number] RADHA BENAVIDEZ Self - patient is the insured Medical (General) History Surgical History Surgery Date(Month/Year) Sinus surgery 12/19/2012 Tonsilectomy/adenoids 12/22/2004 Hysterectomy (18009) 02/17/2012 Removal of gallbladder (70412) 8
--- OUTSIDE RECORDS SUMMARY | 2025-06-24 13:36 | XMS_ITS | Clinical Summary ---
Author Organization [facility] Address [address] [place] [address] Care Team Providers Care Senior Interactive Producer Name Role Phone None, Provider MD Primary [...] age to complete this topic Care Teams Senior Interactive Producer Relationship Specialty Start Date End Date None, Provider, PCP - General 07/22/21
--- OUTSIDE RECORDS SUMMARY | 2025-06-24 13:36 | XMS_ITS | Patient Health Record ---
Author Organization [employer] Address [address] [facility]. [address] [place] [address] Care Team Providers Care Process Control Programmer Name Role Phone Donald RAIL SIGNAL DESIGNER RAIL SIGNAL DESIGNER, Deirdre Primary Care Provider Unavailab le Allergies [...] W/U Status Risk Notes Problem Weight loss (966638798) Weight loss (R63.4) Active confirmed Problem Abdominal pain (79114397) Abdominal pain (R10.9) Active confirmed Problem History of polyp of colon (situation) (273697535) History of colon polyps (Z86.010) Active confirmed Plan Of Treatment No Information Insurance Providers Payer Name Payer Address Payer Phone Subscriber Number Group Number Insured Name Patient Relationship to Insured Coverage Start Date Coverage End Date [employer] Access PPO [address] [place] [address] [id number] JuventinoYaquelin Self - patient is the insured Medical (General) History Medical History History ICD Code IBS Hemorrhoids Colitis GERD Lactose Intolerance Urethral Stricture Skin Disorder Hearing Loss Rheumatoid Arthritis Anxiety/Mood Disorder Surgical History Surgery Date(Month/Year) Colonoscopy (Dr. Justice Baeza) 04/2023 Flex Sigmoidoscopy 12/2022 Edward Fundoplication 2004 Hernia Repair Hemorrhoidectomy Cholecystectomy Hysterectomy Hospitalization History Reason Date(Month/Year) [facility] Hospital: Small Bowel Obstruction
--- OUTSIDE RECORDS SUMMARY | 2025-06-24 13:36 | XMS_ITS | Clinical Summary ---
Author Organization [facility] Address [address] [place] [address] Care Team Providers Care Publications Sales Representative Name Role Phone Jami Ledesma TRIMMER HAND Primary Care Provider [phone] Source Comments This disclosure is being made pursuant to the [employer] 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 09/08/2024 Overview (09/08/2024): Pineal gland cyst Encounters Date Type Department Care Team Description 06/14/2025 3:50 PM CDT Office Visit [facility] Podiatry [address] [place] [phone] Laura York G, DPM Metatarsalgia of right foot (Primary Dx); Equinus contracture of right ankle; Muscle cramps; Chronic foot pain, right; Chronic pain of right ankle 06/14/2025 Orders Only [facility] Centralized Scanning ChelaLaura G, DPM Metatarsalgia of right foot; Equinus contracture of right ankle; Muscle cramps; Chronic foot pain, right; Chronic pain of right ankle 06/14/2025 Orders Only [facility] Centralized Scanning ChelaLaura G, DPM Metatarsalgia of right foot; Equinus contracture of right ankle; Muscle cramps; Chronic foot pain, right; Chronic pain of right ankle 06/13/2025 Travel 05/30/2025 Telephone [facility] Podiatry [address] [place] [phone] Lily Manriquez MA Called patient regarding MRI scheduling 05/30/2025 Telephone [facility] Podiatry [address] [place] [phone] Lily Manriquez MA Patient called wanting MRI done at [place] 05/03/2025 3:40 PM CDT Office Visit [facility] [address] [phone] Laura York, DPM Metatarsalgia of right foot (Primary Dx); Equinus contracture of right ankle; Muscle cramps; Chronic foot pain, right; Chronic pain of right ankle 05/02/2025 Travel 04/28/2025 Transcribe Orders [facility] Orthopedics and Sports Medicine [address] [place] [phone] Idalmis Richard NP Pain of foot, unspecified [...] 09/08/2024 4:00 PM CDT Plan of Treatment Health Maintenance Due [...] pain, right Chronic pain of right ankle MRI FOOT WO CONTRAST STAT 06/13/2025 1:29 PM C DT Metatarsalgia of right foot Equinus contracture of right ankle Muscle cramps Chronic foot pain, right Chronic pain of right ankle from Last 3 Months Results * MRI Ankle wo Contrast (06/13/2025 1:51 PM CDT) Anatomical Region Laterality Modality Leg, Ankle, Foot Magnetic Resona nce Laura York [facility] IM MRI ORDERABLES Final Re sult * MRI Foot wo Contrast (06/13/2025 1:29 PM CDT) Anatomical Region Laterality Modality Foot Magnetic Resonan ce Laura York DP IMG MRI ORDERABLES Final Re sult from Last 3 Months Insurance Care Teams Publications Sales Representative Relationship Specialty Start Date End Date Jami Ledesma NP [facility] [place] [address] PCP - General Nephrology 09/14/24
--- OUTSIDE RECORDS SUMMARY | 2025-06-24 13:36 | XMS_ITS | Encounter Summary ---
Author Organization [facility] Healthcare Address [address] [place] [address] Care Team Providers Care Technicians And Trades Workers Name Role Phone Eda Alvarez MD Primary Care Provider [phone] Dona Lamas MD Unavailable [phone] Mauri Dixon MD Primary Care Provider [phone] Mauri Dixon MD Primary Care Provider [phone] No, Physician Primary Care Provider No, Physician Primary Care Provider [phone] Lizeth Munguia NP Primary Care Provider [phone] Raegan Mercado Primary Care Prov ider Will Briscoe DO Primary Care Provider [phone] Raegan Mercado Primary Care Prov ider Raegan Mercado Primary Care Prov ider Will Briscoe DO Primary Care Provider [phone] Raegan Mercado Primary Care Prov ider Will Briscoe DO Primary Care Provider [phone] Cornelio Hernandez MD Primary Care Provider [phone] Anai Mullins MD Primary Care Provider [phone] Anai Mullins MD Primary Care Provider [phone] No, Physician Primary Care Provider [phone] Deirdre Bennett LABORER [employer]RE[employer]ING [employer] Primary Care Provider [phone] Justice Baeza MD Unavailable Agatha Quiñones [employer] Primary Care Provider [phone] Reason for Visit * Reason Onset Date Comments Scheduling Appointments 03/14/2021 Confirmi ng mammogram appt- no answer Encounter Details Date Type Department Care Team (Late st Contact Info) Description 03/14/2021 Telephone [facility] [address] [place], [place] [id number] Isabel Su RT Scheduling Appointments (Confirming mammogram [...] on file Legal Sex Female 12:19 AM CEMENT MASON HELPER Gender Identity Not on file Sexual Orientation [...] COVID: Suspected 11/16/2022 11/16/2022 11/16/2022 10:13 AM CEMENT MASON HELPER COVID19 11/16/2022 11/16/2022 11/26/2022 3:05 AM CEMENT MASON HELPER COVID: Recovered Comment:Added based on recent COVID infection. 11/26/2022 11/27/2022 02/24/2023 3:05 AM C DT COVID: Suspected 08/10/2023 08/10/2023 08/10/2023 9:04 AM CDT COVID: Suspected 01/13/2024 01/13/2024 01/13/2024 9:35 AM CEMENT MASON HELPER COVID: Suspected 02/18/2024 02/18/2024 02/18/2024 9:47 AM CDT documented as of this encounter Care Teams Technicians And Trades Workers Relationship Specialty Start Date End Date Eda Alvarez MD PCP - General 09/24/19 07/03/21 Mauri Dixon MD PCP - General 07/04/21 07/05/21 Mauri Dixon MD PCP - General 07/06/21 08/05/21 No, Physician PCP - General 08/09/21 02/05/22 No, Physician PCP - General 08/06/21 08/08/21 Lizeth Munguia NP [address] [place] [address] PCP - General Nurse Practitioner 02/06/22 06/13/22 Raegan Mercado PA [address] [place] [address] PCP - General 06/14/22 06/27/22 Will Briscoe DO [address] [facility] [place] [address] PCP - General Family Medicine 06/28/22 07/03/22 Raegan Mercado PA [address] [place] [address] PCP - General 07/04/22 07/04/22 Raegan Mercado PA [address] [place] [address] PCP - General 07/05/22 07/09/22 Will Briscoe DO [address] [place] [address] PCP - General Family Medicine 07/10/22 07/12/22 Raegan Mercado PA [address] [place] [address] PCP - General 07/13/22 07/29/22 Will Briscoe DO [address] [place] [address] PCP - General Family Medicine 07/30/22 09/23/22 Cornelio Hernandez MD [address] [place] [address] PCP - General Family Medicine 09/24/22 01/02/23 Anai Mullins MD [address] [place] [address] PCP - General Obstetrics and Gynecology 01/03/2312/19 Anai Mullins MD [address] [place] [address] PCP - General Obstetrics and Gynecology 01/08/2301/15 No, Physician PCP - General 01/30/23 03/11/23 Deirdre Bennett NP [facility][note 3] [address] [facility] [address] [place] [address] PCP - General Family Medicine 03/12/23 01/19/24 Agatha Quiñones NP [address] [facility] [address] [place] [address] PCP - General Commercial Horticulture Instructor 01/20/24 Dona Lamas MD Referring Physician Gastroenterology 10/12/19 03/11/23 Justice Baeza MD [address] [place] [address] [address] [place] [address] Consulting Physician Gastroenterology 04/09/23 documented as of this encounter
--- OUTSIDE RECORDS SUMMARY | 2025-06-24 13:36 | XMS_ITS | Clinical Summary ---
Author Organization [facility] Address [address] [facility] [place] [address] Care Team Providers Care Coal Loader Name Role Phone Cornelio Hernandez MD Primary Care Provider [phone] Source Comments [facility],non-owned Affiliates and Associated Physician Practices is amultiple site organization consisting of ambulatory clinics and hospital sitesin [place], [place], [place] and [place]. This disclosure is being madepursuant to the Care Everywhere program and may not contain all information available regarding this patient. Last updated 18.[facility] Allergies Active Allergy Reactions Criticality Noted Date [...] this topic Medical Devices Implanted Type Area Grievance Coordinator Device Identifier Shelf Expiration Date Model / Serial / Lot Mesh Srg Ventralight St Sepra 8x6in Implanted:Qty: 1 on 08/13/2022 by Brian Yañez MD at [facility] [employer] 01/14/2024 [id number] / / [id number] Insurance [facility] Advance Directives * Full Code (Latest Code Status on File) Date Activated Date Inactivated Comments 08/26/2022 8:50 PM 08/29/2022 1:30 AM Care Teams Coal Loader Relationship Specialty Start Date End Date Cornelio Hernandez MD [address] [place] [address] [address] [place] [phone] PCP - General 09/02/22
--- OUTSIDE RECORDS SUMMARY | 2025-06-24 13:36 | XMS_ITS ---
Author Organization [facility] ([address]) Address [address] [place] [address] Care Team Providers Care Middle Stitcher Name Role Phone Deirdre Bennett Primary Care Provider UnavailEdmond Wells Unavailable [phone] [facility], Provider Unavailable Unavailab le Allergies Allergen [...] closing Drug Allergy Active REASON FOR VISIT [facility] Conversion Encounter Medications Medication SIG (Take, Route, Frequency, Duration) Notes Start Date End Date Status Fluticasone Propionate 50 MCG/ACT 1 spray(s) in each nostril once a day last used 6 months ago Active Encounters Encounter Location Date Provider [place] [address] 05/01/2024 Provider [employer] Plan Of Treatment No Information Progress Notes * REEMADeejayen LDOB: 7 (50 yo F)Acc No.[id number]:05/01/2024 Patient: Yaquelin ESPINAL Provider: Laurel Gonzalez :1975 A ge:49 Y S ex:Female Date:05/01/2024 Address:[address] [place], [place] [phone] Pcp:Deirdre Bennett Subjective: * Chief Complaints: * [...] Electronic signature of Prov ider [employer]Migration on 06/24/2025 at 01:35 PM CDT Sign off status: Pending * Provider: Laurel Gonzalez Date: 05/01/2024 Generated for Maggy macario/Efrem/Yariel on: 0 06/24/2025 01:35 PM CDT
--- OUTSIDE RECORDS SUMMARY | 2025-06-24 13:36 | XMS_ITS | Clinical Summary ---
Author Organization [facility] Address [address] [facility] [place] [address] Phone Care Team Providers Care Bilingual Student Tutor Name Role Phone Jorge Raygoza DPM Unavailable [phone] Jagdish Bryant MD Unavailable Dia Allen MDS NURSE, TENTER Primary Care P rovider Mirtha Franklin MD Unavailable [phone] Allergies Active Allergy Reactions Criticality Noted [...] OR DERABLES Final Result Performing Organization Address City/[facility]/ZIP Co de Phone Number SCAN from Last 3 Months or Most Recently Relevant to Health Maintenance Insurance [facility] Advance Directives * Full Code (Latest Code Status on File) Date Activated Date Inactivated Comments 08/20/2022 2:26 AM 08/22/2022 3:55 PM CPR-Full Joseph atment: FULL ARREST: Attempt Resuscitation/CPR wit intubation and mechanical ventilation. PRE-ARREST: Use entire range of life support measures to stabilize the patient. Care Teams Bilingual Student Tutor Relationship Specialty Start Date End Date Dia Allen MDS NURSE, TENTER [address] [place] [address] PCP - General Advanced Practice Nurse 02/14/23 Jorge Raygoza DPM Podiatry 02/29/16 Jagdish Bryant MD [address] [address] Consulting Physician Colon and Rectal Surgery 06/17/22 Mirtha Franklin MD [address] [place] [address] Consulting Physician Gastroenterology 12/12/22
[2025-06-24 13:38] VITALS: BP 119/73; PULSE 68; RESP 16; TEMP 36.6; O2SAT 100
[2025-06-24 14:01] LABS: EDUAAPPEAR Clear; EDUABILI Negative (Negative); EDUABLOOD Negative (Negative); EDUACOLOR1 Yellow; EDUAGLUCOSE Negative (Negative); EDUAKETONE Negative (Negative); EDUALEUKO Negative (Negative); EDUANITRATE Negative (Negative); EDUAPH 7.0; EDUAPROTEIN Negative (Negative); EDUASPGRAVITY 1.020; EDUAUROBILI 0.2
--- NOTE | 2025-07-01 08:25 | ED_ITS ---
HPI - Female Genitourinary General Chief complaint: Urogenital-Female Stated complaint: Urinary Problem Time Seen by Provider: 06/24/25 13:40 Source: patient Mode of arrival: ambulatory Limitations: no limitations History of Present Illness HPI Narrative: 50 yo F presents with c/o urinary frequency. No other complaints. All systems reviewed and negative except as noted above. Related Data Home Medications ?Medication ?Instructions ?Recorded ?Confirmed ?Last Taken ?Type No Home Medications 07/06/24 06/10/25 Unknown History Allergies Allergy/AdvReac Type Severity Reaction Status Date / Time amoxicillin AdvReac Intermediate Chest Pain Verified 06/10/25 17:37 codeine AdvReac Intermediate Nausea and Verified 06/10/25 17:37 Vomiting ketorolac (From Toradol) AdvReac Intermediate Palpitation Verified 06/10/25 17:37 s levofloxacin (From Levaquin) AdvReac Intermediate Chest Pain Verified 06/10/25 17:37 nitrofurantoin (From AdvReac Intermediate Chest Pain Verified 06/10/25 17:37 Macrobid) Penicillins AdvReac Intermediate Chest Pain Verified 06/10/25 17:37 Sulfa (Sulfonamide AdvReac Intermediate Chest Pain Verified 06/10/25 17:37 Antibiotics) vancomycin AdvReac Intermediate Chest Pain Verified 06/10/25 17:37 acetaminophen AdvReac Mild Hives Verified 06/10/25 17:37 clindamycin AdvReac Mild Hives Verified 06/10/25 17:37 gadobenic acid (From AdvReac Mild Hives Verified 06/10/25 17:37 contrast - MRI) hydrocodone AdvReac Mild Hives Verified 06/10/25 17:37 iohexol (From contrast - CT, AdvReac Mild Hives Verified 06/10/25 17:37 X-RAY) latex AdvReac Mild RASH-CONDOMS Verified 06/10/25 17:37 AND GLOVES lubiprostone (From Amitiza) AdvReac Mild Itching Verified 06/10/25 17:37 paroxetine (From Paxil) AdvReac Mild Hives Verified 06/10/25 17:37 propoxyphene (From AdvReac Mild Itching Verified 06/10/25 17:37 Darvocet-N 100) PMFSH Past Medical History Medical History Family history of malignant neoplasm of colon in father Irritable bowel syndrome with constipation Vaginal delivery Right hand fracture GERD (gastroesophageal reflux disease) Anxiety Depression Urinary tract infection Genitourinary disorder Interstitial cystitis, urethral dilation Constipation Irritable bowel syndrome Bronchitis Mitral valve prolapse Interstitial cystitis Surgical History Surgical History H/O umbilical hernia repair History of urinary tract surgery History of hysterectomy H/O hemorrhoidectomy History of orthopedic surgery Right knee, trigger release finger left hand H/O tubal ligation H/O sinus surgery History of tonsillectomy History of facial surgery Nasal reconstruction Family History Family History Grandparent Diabetes mellitus, Onset Age: 200 Cerebrovascular accident, Onset Age: 200 Father Family history of elevated blood lipids Carcinoma of colon Family history of coronary artery disease, Onset Age: 201 Patient's father is Grandparent Family history of malignant neoplasm Diabetes mellitus Cerebrovascular accident Hypertension Family history of cardiovascular disease Father Family history of congestive heart failure Patient's father is Hypertension Carcinoma of colon Family history of emphysema Family history of cardiovascular disease Sibling Hypertension Grandparent Diabetes mellitus Social History Social History Social History: no caffeine use Smoking packs per day: 1.5 Smoking cigarettes per day: 30.0 Years smoked: 13 Smoking pack-years: 19.50 Smoking status: Former smoker Tobacco type: cigarettes Second hand tobacco smoke exposure: No Smoking end date: 07/06/10 Alcohol intake: never Substance use: never Living arrangements: with family Additional living arrangements comments: Al[facility] [phone] Occupation/Education: unemployed Gender identity (if verbalized by the patient): Female Sexual Orientation (if Verbalized by the Patient): Straight or Heterosexual Spiritual care concerns: No Comments At time of signature, agree with nursing past medical, surgical, social and family history. There is no relevant family history pertinent to the presenting complaint. Exam Narrative: GENERAL: This is a well-nourished, well-developed patient, in no apparent distress. HEAD: normocephalic, atraumatic. EYES: PERRL. Sclera clear/white. Vision is grossly intact. EARS: External ears normal NOSE: External nose normal NECK: Neck supple, non-tender without lymphadenopathy, masses or thyromegaly. CARDIOVASCULAR: Regular rate and rhythm without murmurs, gallops, or rubs. RESPIRATORY: Clear to auscultation. Breath sounds equal bilaterally. No wheezes, rales, or rhonchi. SKIN: warm, Dry, intact with no suspicious lesions or rash, good texture and turgor. NEURO: awake, alert, and oriented to person, place and time. There were no obvious focal neurologic abnormalities. EXTREMITIES: No joint tenderness, effusion, or edema noted. Course Course Level of Care: Express Care Visit Vital Signs Vital signs: Vital Signs Temperature 36.6 C 06/24/25 13:38 Pulse Rate 68 06/24/25 13:38 Respiratory Rate 16 06/24/25 13:38 Blood Pressure 119/73 06/24/25 13:38 Pulse Oximetry 100 06/24/25 13:38 Oxygen Delivery Room Air 06/24/25 13:38 Temperature 36.6 C 06/24/25 13:38 Pulse Rate 68 06/24/25 13:38 Respiratory Rate 16 06/24/25 13:38 Blood Pressure 119/73 06/24/25 13:38 Pulse Oximetry 100 06/24/25 13:38 Oxygen Delivery Room Air 06/24/25 13:38 reviewed MDM - Female Genitourinary MDM Narrative Medical decision making narrative: urinalysis normal. Urine culture ordered. Will wait for urine culture results prior to treating with antibiotics. Patient agrees with plan of care. Patient is well-appearing, nontoxic. Differential Diagnosis Differential diagnosis: Likely urinary tract infection and cystitis Lab Data Labs: Lab Results 06/24/25 Range/Units 13:54 POC Urine Color Yellow POC Urine Clarity Clear POC Urine pH 7.0 POC Ur Specif [place] 1.020 POC Urine Protein Negative (Negative) POC Ur Glucose (UA) Negative (Negative) POC Urine Ketones Negative (Negative) POC Urine Blood Negative (Negative) POC Urine Nitrite Negative (Negative) POC Urine Bilirubin Negative (Negative) POC Urine Urobilinogen 0.2 POC U Leukocyte Esteras Negative (Negative) Discharge Plan Discharge Clinical Impression: Urinary frequency Patient Disposition: Home Condition: Stable Instructions: Urinary Urgency and Frequency (DC) Additional Instructions: your urinalysis was normal today. A urine culture was ordered and results will take 48-72 hours. We will call you if your urine culture is abnormal. Patient Language: Vietnamese Prescriptions: No Action No Home Medications Follow-up/Referrals: PHYSICIAN,CYCLE COUNTER [Primary Care Provider] - Time of Disposition: 14:01
== END 2025-06-24 14:09 | disposition home or self-care (01) ==
PROVIDERS: Emergency Provider Nurse Practitioner Family
DX: R35.0 Frequency of micturition (principal); Z87.891 Personal history of nicotine dependence; K21.9 Gastro-esophageal reflux disease without esophagitis; I34.1 Nonrheumatic mitral (valve) prolapse
CPT/HCPCS: 81003; 87086; 99213; G0463

== ENCOUNTER 2025-09-02 14:53 | Emergency (ER) | payer BC, SELFPAY ==
--- OUTSIDE RECORDS SUMMARY | 2024-05-01 16:30 | XMS_ITS ---
Author Organization [facility] [place] ([phone]) Address [address] [place] [address] Care Team Providers Care Office Electrician Name Role Phone Deirdre Bennett Primary Care Provider UnavailEdmond Wells Unavailable [phone] [facility], Provider Unavailable Unavailab le Allergies Allergen (clinical drug ingredient) Drug/Non Drug Allergy documented on EMR Reaction Allergy Type Onset Date Status amoxicillin Amoxicillin hives, SOB, throat closing Drug Allergy Active levofloxacin levoFLOXacin hives, SOB, throat closing Drug Allergy Active nitrofurantoin, macrocrystals / nitrofurantoin, monohydrate Macrobid hives, SOB, throat closing Drug Allergy Active penicillin G Penicillin G Sodium hives, SOB, throat closing Drug Allergy Active penicillin V Penicillin V Potassium hives, SOB, throat closing Drug Allergy Active ketorolac Ketorolac hives, SOB, throat closing Drug Allergy Active vancomycin Vancomycin hives, SOB, throat closing Drug Allergy Active REASON FOR VISIT [facility] Conversion Encounter Medications Medication SIG (Take, Route, Frequency, Duration) Notes Start Date End Date Status Fluticasone Propionate 50 MCG/ACT 1 spray(s) in each nostril once a day last used 6 months ago Active Encounters Encounter Location Date Provider Diagnosis [place] [address] 05/01/2024 Provider [facility] Plan Of Treatment No Information Progress Notes * REEMADeejayen LDOB: 7 (50 yo F)Acc No.[id number]:05/01/2024 Patient: Yaquelin ESPINAL Provider: Laurel Gonzalez :1975 A ge:49 Y S ex:Female Date:05/01/2024 Address:[address] [place], [place] [id number] Pcp:Deirdre Bennett Subjective: * Chief Complaints: * 1 . [facility] To [facility] Conversion Encounter. * Medical History: * Medications: T aking Fluticasone Propionate 50 MCG/ACT Suspension 1 spray(s) in each nostril once a day , Notes to Pharmacist: last used 6 months ago * Allergies: A moxicillin: hives, SOB, throat closing, Penicillin G Sodium: hives, SOB, throat closing, Penicillin V Potassium: hives, SOB, throat closing, Macrobid: hives, SOB, throat closing, Ketorolac: hives, SOB, throat closing, Vancomycin: hives, SOB, throat closing, levoFLOXacin: hives, SOB, throat closing. Objective: * Vitals: Assessment: Plan: * Treatment: * Billing Information: * Visit Code: * Procedure Codes: * Electronic signature of Prov ider [facility] on 09/02/2025 at 02:57 PM CDT Sign off status: Pending * Provider: Laurel Gonzalez Date: 0 05/01/2024 Generated for Maggy macario/Efrem/Yariel on: 1 02:57 PM CDT
[2025-09-02 14:55] VITALS: BP 105/60; PULSE 74; RESP 20; TEMP 36.3; O2SAT 100
--- OUTSIDE RECORDS SUMMARY | 2025-09-02 14:57 | XMS_ITS | Patient Health Record ---
Author Organization [facility] [place] ([address]) Address [address] [place] [address] Care Team Providers Care Pork Cutlet Maker Name Role Phone Deirdre Bennett Primary Care Provider Edmond Matson [phone] Allergies Allergen (clinical drug ingredient) Drug/Non Drug [...] Status Risk Notes Problem Allergy to penicillin (33658481) Allergy status to penicillin (Z88.0) Active confirmed Problem Chronic rhinitis (28331609) Chronic rhinitis (J31.0) Active confirmed Problem Hypertrophy of nasal turbinates (72759656) Hypertrophy of nasal turbinates (J34.3) Active confirmed Problem Gastro-esophag eal reflux disease without esophagitis (793637918) Gastro-esophageal reflux disease without esophagitis (K21.9) Active confirmed Problem Irritable bowel syndrome with diarrhea (724983265) Irritable bowel syndrome with diarrhea (K58.0) Active confirmed Problem Sulfonamide adverse reaction (500146154) Adverse effect of sulfonamides, initial encounter (T37.0X5A) Active confirmed Problem Adverse effect o f antimycobacterial drugs, initial encounter (T37.1X5A) Active confirmed Problem Adverse reaction to food (414825476) Other adverse food reactions, not elsewhere classified, initial encounter (T78.1XXA) Active confirmed Problem Allergy status t o other antibiotic agents (Z88.1) Active confirmed Problem Allergic reaction caused by analgesic (disorder) (9424244135723 9108) Allergy status to analgesic agent (Z88.6) Active confirmed Plan Of Treatment No Information Insurance Providers Payer Name Payer Address Payer Phone Subscriber Number Group Number Insured Name Patient Relationship to Insured Coverage Start Date Coverage End Date [facility] [address] [place] [address] [phone] [id number] Juventino Yaquelin Self - patient is the insured Medical (General) History Medical History History ICD Code Irritable bowel syndrome with diarrhea K 58.0 Gastro-esophageal reflux disease without esophagitis K21.9 Surgical History Surgery Date(Month/Year) Belly button mesh repair 3 time around 0 08/13/2023 Nose repairb 12/09/2016
--- OUTSIDE RECORDS SUMMARY | 2025-09-02 14:57 | XMS_ITS | Encounter Summary ---
Author Organization [facility] Address [address] [place] [address] Care Team Providers Care Hplc Chemist Name Role Phone Kevin Hollis MD Primary Care Provider Encounter Details Date Type Department Care Team (Latest Contact Info) Description 08/11/2025 Results Follow-Up [address] [address] Kevin Hollis MD [address] [place] [address] CBC auto differential, Comprehensive metabolic panel, Hemoglobin A1c, Additional followed-up results: 4 Social History Tobacco Use Types Packs/Day Years Used Date Smoking Tobacco: Former Cigarettes 1 17 - 2009 Passive Smoke Exposure: Never Smokeless Tobacco: Never Alcohol Use Standard Drinks/Week Comments Yes 0 (1 standard drink = 0.6 oz pur e alcohol) on occasion PHQ-2 Answer Date Recorded PHQ-2 Total Score 0 08/11/2025 Comments No Sex and Gender Information Value Date Recorded Sex Assigned at Not on file Legal Sex Female 12:49 PM CDT Gender Identity Female 08/02/2024 8:03 AM CDT Sexual Orientation Not on file documented as of this encounter Plan of Treatment Upcoming Encounters Date Type Department Care Team (Late st Contact Info) Description 11/24/2025 11:00 AM INSTRUMENTATION TECH Appointment [address] [place] [address] Kevin Hollis MD [address] [place] [address] documented as of this encounter Visit Diagnoses Diagnosis Vitamin D insufficiency- Primary Unspecified vitamin D deficiency documented in this encounter Additional Health Concerns Assessment Noted Time PHQ-9 Depression Total Score: 0 09/08/20 4:05 PM CDT A Body Mass Index follow-up plan has been documented for the patient 08/11/2025 12:43 PM CDT documented as of this encounter Care Teams Hplc Chemist Relationship Specialty Start Date End Date Kevin Hollis MD [address] [place] [address] PCP - General Family Medicine 08/11/25 documented as of this encounter
--- OUTSIDE RECORDS SUMMARY | 2025-09-02 14:57 | XMS_ITS | Clinical Summary ---
Author Organization [facility] Address [address] [place] [address] Phone Care Team Providers Care Detonator Maker Name Role Phone Unavailable Primary Care Provider [...] VACCINE (#1) 2025 , 08/11/2020, 08/23/2019 Insurance [facility] MEDICAID
--- OUTSIDE RECORDS SUMMARY | 2025-09-02 14:57 | XMS_ITS | Clinical Summary ---
Author Organization [facility] Address [address] [place] [address] Care Team Providers Care Horologist Apprentice Name Role Phone Kevin Hollis MD Primary Care Provider Source Comments This disclosure is being made pursuant to the [employer] program and maynot contain all information available regarding this patient.[facility] Allergies Active Allergy Reactions Criticality Noted Date [...] nasal spray 2 sprays by Nasal route. 024 Active PEG 8498-HLw-EmXtj-N aCl-NaSulf (peg-3350/electr olytes) 236 g SOLR MIX AND DRINK 1/2 (ONE-HALF) TO 1 CONTAINER NEEDED FOR CONSTIPATION 025 Active Vitamin D3 50 MCG (2000 UT) CAPS capsuleIndicatio ns:Vitamin D insufficiency Take 1 (one) capsule (50 mcg total) by mouth daily. 90 capsule 025 2024 Discontinued(* Patient Discontinued (sends cancel message to pharmacy)) Active Problems Problem Noted Date Diagnosed Date Neuropathic pain of right ankle 04/14/2025 Allergy 02/08/2025 Acquired absence of both cervix and uterus 10/19 Overview (08/11/2025): Acquired absence of both cervix and uterus Lower urinary tract symptoms (LUTS) 09/08/2024 Urinary [...] (09/08/2024): Added automatically from request for surgery [id number] Incisional hernia, without o bstruction or gangrene 11/12/2018 09/08/2024 Umbilical pain 11/12/2018 09/08/2024 Pain in both feet 02/13/2016 09/08/2024 Pain of breast 05/15/2012 09/08/2024 Abnormal computed tomography of head 04/20/2012 09/08/2024 Overview (09/08/2024): Abnormal CT scan, head 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 09/08/2024 Overview (09/08/2024): Pineal gland cyst Encounters Date Type Department Care Team Description 08/23/2025 Results Follow-Up [address] [phone] Kevin Hollis MD Tissue Exam 08/18/2025 11:30 AM CDT Office Visit [address] [phone] Kevin Hollis MD Actinic keratosis (Primary Dx); Skin tag 08/17/2025 Travel 08/12/2025 1:30 PM CDT Clinical Support [facility] [address] [place] [phone] Kevin Hollis MD Knipe, Allyson P, RTR Encounter for screening mammogram for malignant neoplasm of breast 08/12/[address] [phone] Stephanie Grimm, RN Results 08/11/2025 11:35 AM CDT Lab [facility] [address] [place] [phone] Kevin Hollis MD Need for hepatitis C screening test; Screening for endocrine, metabolic and immunity disorder; Screening for endocrine, metabolic, and immunity disorder; Screening examination for STD (sexually transmitted disease); History of vitamin D deficiency; History of gout 08/11/2025 11:30 AM CDT Clinical Support [facility] [place] [phone] Kevin Hollis MD McConnell, Allison K, RTR Other cardiac arrhythmia 08/11/2025 11:00 AM CDT Office Visit [address] [phone] Kevin Hollis MD Need for hepatitis C screening test (Primary Dx); Screening for endocrine, metabolic and immunity disorder; Screening for endocrine, metabolic, and immunity disorder; Screening examination for STD (sexually transmitted disease); History of vitamin D deficiency; Encounter for screening mammogram for malignant neoplasm of breast; Colon cancer screening; History of gout; Other cardiac arrhythmia 08/11/2025 Orders Only [address] [phone] Stephanie Grimm RN 08/11/2025 Results Follow-Up [address] [phone] Kevin Hollis MD CBC auto differential, Comprehensive metabolic panel, Hemoglobin A1c, Additional followed-up results: 4 08/11/2025 Travel 08/01/2025 Travel 06/14/2025 3:50 PM CDT Office Visit [facility] [address] [place] [phone] Laura York, DPM Metatarsalgia of right foot (Primary Dx); Equinus contracture of right ankle; Muscle cramps; Chronic foot pain, right; Chronic pain of right ankle 06/14/2025 Orders Only [facility] Laura York, DPM Metatarsalgia of right foot; Equinus contracture of right ankle; Muscle cramps; Chronic foot pain, right; Chronic pain of right ankle 06/14/2025 Orders Only [facility] Laura York, DPM Metatarsalgia of right foot; Equinus contracture of right ankle; Muscle cramps; Chronic foot pain, right; Chronic pain of right ankle 06/13/2025 Travel from Last 3 Months Immunizations Immunization Administration Dates Next Due Influenza, inactivated, quad rivalent, 3 years and older, single dose syringe/vial 09/08/2021,08/11/2020,08/23/2019 PPD Test 09/10/2016 Social History Tobacco Use Types Packs/Day Years Used Date Smoking Tobacco: Former Cigarettes 1 17 1 993 - 2010 Passive Smoke Exposure: Never Smokeless Tobacco: Never Alcohol Use Standard Drinks/Week Comments Yes 0 (1 standard drink = 0.6 oz pur e alcohol) on occasion PHQ-2 Answer Date Recorded PHQ-2 Total Score 0 08/18/2025 Comments No Sex and Gender Information Value Date Recorded Sex Assigned at Not on file Legal Sex Female 12:49 PM CDT Gender Identity Female 08/02/2024 8:03 AM CDT Sexual Orientation Not on file Last Filed Vital Signs Vital Sign Reading Time Taken Comments Blood Pressure 128/88 08/18/2025 10:46 AM CDT Pulse 50 08/18/2025 10:46 AM CDT Temperature - - Respiratory Rate - - Oxygen Saturation 97% 08/18/2025 10:46 AM CDT Inhaled Oxygen Concentration - - Weight 82.6 kg (182 lb 3.2 oz) 08/11/2025 10:45 AM CDT Height 165.1 cm (5' 5) 09/08/2024 4:00 PM CDT Body Mass Index 30.32 09/08/2024 4:00 PM CDT Plan of Treatment Upcoming Encounters Date Type Department Care Team (Late st Contact Info) Description 11/24/2025 11:00 AM SPA EXPERIENCE COORDINATOR Appointment [facility] [address] [place] [phone] Kevin Hollis MD [address] [place] [address] Health Maintenance Due Date Last Done Comments CT Colonography 1977 Cervical Cancer Screening 1977 Colonoscopy 1977 Colorectal Cancer Screening 1977 Fecal DNA Test 1977 HPV 1977 Sigmoidoscopy 1977 Hepatitis B Vaccine (1 of 3 - 19+ 3-dose series) 1996 Pneumococcal Vaccines 0-49 yo (1 of 2 - PCV) 1996 Tetanus/Pertussis Vaccine Teen/Adult (1 - Tdap) 1996 FOBT/FIT 1997 Pap Smear 1998 COVID-19 Vaccine (1 - season) 2025 Influenza Vaccine (#1) 2025 , 08/11/2020, 08/23/2019 Annual Wellness Visit 08/11/2026 08/11/2025 , 10/04/2022, 12/01/2018 Lab-Diabetes Screening 08/11/2026 08/11/2025, 2024 Zoster (Shingles) Vaccine 50+ (1 of 2) 2027 Breast Cancer Screening-Mammogram 08/12/2027 08/12/2025, 10/03/2023, 03/16/2021, Additional history exists Lab-Cholesterol Screening 08/11/2030 08/11/2025 RSV Adult (1 - 1-dose 75+ series) 2052 Lab-Hepatitis C Screening Completed 08/11/2025 HIB Vaccine Aged Out No longer eligi ble based on patient's age to complete this topic HPV Vaccine (9-26yo & Shared Decision 27-45yo) Aged Out No longer eligible based on patient's age to complete this topic Hepatitis A Vaccine Aged Out No longe r eligible based on patient's age to complete this topic IPV Vaccine Aged Out No longer eligi ble based on patient's age to complete this topic Meningococcal Conjugate Vaccine Aged Out No longer eligible based on patient's age to complete this topic RSV < 20 Months Aged Out No longer el igible based on patient's age to complete this topic Procedures Procedure Name Priority Date/Time Associated Diagnosis Comments REVCODE Routine 08/18/2025 11:04 AM CDT Skin tag WV DESTRUC PREMALIGNANT, FIRST LESION Routine 08/18/2025 11:03 AM CDT Actinic keratosis TISSUE EXAM Routine 08/18/2025 11:01 AM CDT Skin tag MM DIGITAL BILATERAL SCREENING MAMMOGRAM Routine 08/12/2025 12:34 PM CDT Encounter for screening mammogram for malignant neoplasm of breast EKG 12-LEAD Routine 08/11/2025 11:28 AM CDT Other cardiac arrhythmia URIC ACID Routine 08/11/2025 11:23 AM CDT History of gout 25 HYDROXY VITAMIN D Routine 08/11/2025 11:23 AM CDT History of vitamin D deficiency HEPATITIS B SURFACE ANTIBODY Routine 08/11/2025 11:23 AM CDT Screening examination for STD (sexually transmitted disease) HEPATITIS B SURFACE ANTIGEN Routine 08/11/2025 11:23 AM CDT Screening examination for STD (sexually transmitted disease) TSH Routine 08/11/2025 11:23 AM CDT Screening for endocrine, metabolic, and immunity disorder LIPID PANEL Routine 08/11/2025 11:23 AM CDT Screening for endocrine, metabolic and immunity disorder HEMOGLOBIN A1C Routine 08/11/2025 11:23 AM CDT Screening for endocrine, metabolic and immunity disorder COMPREHENSIVE METABOLIC PANEL Routine 08/11/2025 11:23 AM CDT Screening for endocrine, metabolic and immunity disorder CBC WITH AUTO DIFFERENTIAL Routine 08/11/2025 11:23 AM CDT Screening for endocrine, metabolic and immunity disorder HEPATITIS C ANTIBODY Routine 08/11/2025 11:23 AM CDT Need for hepatitis C screening test MRI ANKLE WO CONTRAST Routine 06/13/2025 1:51 PM CDT Metatarsalgia of right foot Equinus contracture of right ankle Muscle cramps Chronic foot pain, right Chronic pain of right ankle MRI FOOT WO CONTRAST STAT 06/13/2025 1:29 PM CDT Metatarsalgia of right foot Equinus contracture of right ankle Muscle cramps Chronic foot pain, right Chronic pain of right ankle from Last 3 Months Results * REVCODE (08/18/2025 11:04 AM CDT) Narrative Kevin Hollis MD - 08/18/2025 11:04 AM CDT Kevin Hollis MD 08/18/2025 11:12 AM *Lesion Biopsy Date/Time: 08/18/2025 11:04 AM Performed by: Kevin Hollis MD Authorized by: Kevin Hollis MD [place] Protocol: Verbal consent obtained?: Yes Consent given by: Patient Patient states understanding of procedure being performed: Yes Patient's understanding of procedure matches consent: Yes Patient identity confirmed: Verbally with patient Time out: Immediately prior to the procedure a time out was called Sedation: Patient sedated: No Procedure Details: Number of Biopsies: 1 Biopsy 1: Type: Incisional biopsy Skin lesion 1 location: Mid back. Initial size (mm): 5 Final defect size (mm): 8 Destruction method: Shave Area removed: Sample of epidermal tissue Wound repair type: None. Post-Procedure Details: Patient tolerance: Patient tolerated the procedure well with no immediate complications Kevin Hollis MD PROCEDURE/MINOR SURGICA L ORDERABLES Final Result * WV DESTRUC PREMALIGNANT, FIRST LESION (08/18/2025 11:03 AM CDT) Narrative Kevin Hollis MD - 08/18/2025 11:03 AM CDT Kevin Hollis MD 08/18/2025 11:12 AM Destruction Premal, First Lesion ([id number]) Date/Time: 08/18/2025 11:03 AM Performed by: Kevin Hollis MD Authorized by: Kevin Hollis MD [place] Protocol: Verbal consent obtained?: Yes Consent given by: Patient Patient states understanding of procedure being performed: Yes Patient's understanding of procedure matches consent: Yes Patient identity confirmed: Verbally with patient Time out: Immediately prior to the procedure a time out was called (A time out verifies correct patient, procedure, equipment, support worker and site/side marked as required.) Anesthesia: Local anesthesia used?: No Procedure Modifiers: Procedure Comments: S/p cryotherapy of multiple lesions: Seborrheic Keratosis Location: Left ankle Patient tolerated procedure well without incident. Return in 1 month for monitoring/resolution. Kevin Hollis MD PROCEDURE/MINOR SURGICA L ORDERABLES Final Result * Tissue Exam (08/18/2025 11:01 AM CDT) A Source Skin, back: [facility] A Diagnosis Intradermal melanocytic nevus. [facility] Clinical Information: ICD-10 code: L91.8 Other hypertrophic disorders of the skin [facility] Pathologist Gibran Cruz M.D., Dermatopatholog ist, Board Certified in Dermatopatholog y, Anatomic Pathology and Clinical Pathology (electronic signature) Pathologist Release Date/Time: 08/23/2025 07:38AM [facility] A Gross Description SEE NOTE [facility] Comment: Specimen is received in 10% neutral buffered formalin, labeled with multiple patient identifiers and consists of one piece from a skin shave biopsy measuring 1.0 x 0.8 x 0.2 cm, irregular in shape and negrete-pickering in color, with a pigmented area measuring 0.5 x 0.5 cm and negrete-brown in color. The margins are inked green. The specimen is serially sectioned and entirely submitted in one cassette(s). Site is not given on container. Gross exam(s) performed at: [facility] [address] [address] [employer] Spindle Screw Machine Operator: ROS LEARY MD [facility] order number: [id number] Tissue 08/18/2025 11:0 1 AM CDT 08/19/2025 8:53 PM CDT Comment:- Narrative [facility] - 08/23/2025 8:44 AM CDT Collection Date->08/18/25 Collection Time->11:18 AM Testing performed at: [place], [employer], [phone], Multiple Spindle Screw Machine Operator: Ros Leary Kevin Hollis MD PATHOLOGY/CYTOLOGY ORDE RABFRANCY Final Result [facility] [address] [phone] * MM Digital Bilateral Screening Mammogram (08/12/2025 12:34 PM CDT) Anatomical Region Laterality Modality Breast Bilateral Mammography 08/12/2025 12:3 4 PM CDT Narrative 08/16/2025 7:08 [place] [address] 08/12/2025 Clinical History: Patient is 50 years old and is seen for screening. No personal history of breast cancer. The patient has a history of left Excisional Biopsy in 2019 - benign. Risk: Sarthaker Hanselzick Breast Cancer Score: 8.2% Lifetime Risk- Average Risk Digital technique utilized. 3-D tomosynthesis and synthesized 2-D images were acquired. DIGITAL MAMMOGRAM: R2 CAD utilized. The present examination has been compared to prior imaging studies performed at Other Location on 02/12/2019, 03/16/2021 and 10/03/2023. The following views were performed: Bilateral craniocaudal with tomosynthesis and bilateral mediolateral oblique with tomosynthesis. The breasts are heterogeneously dense, which may obscure small masses. There are no suspicious findings in either breast. Benign finding(s) are noted. There has been no significant interval change. IMPRESSION: There is no mammographic evidence of malignancy. A routine follow-up mammogram in 1 year is recommended or according to the [employer] recommendations. BIRADS Assessment 2: Benign finding. Lay Letter #1. THIS IS AN ELECTRONICALLY SIGNED REPORT READING PHYSICIAN: Edwardo Soto MD 08/16/2025 at 07:07 AM Procedure Note Edwardo Soto MD - 08/16/[address] [address] 08/12/2025 Clinical History: Patient is 50 years old and is seen for screening. No personal history of breast cancer. The patient has a history of left Excisional Biopsy in 2019 - benign. Risk: Tyrer Hanselzick Breast Cancer Score: 8.2% Lifetime Risk- Average Risk Digital technique utilized. 3-D tomosynthesis and synthesized 2-D images were acquired. DIGITAL MAMMOGRAM: R2 CAD utilized. The present examination has been compared to prior imaging studies performed at Other Location on 02/12/2019, 03/16/2021 and 10/03/2023. The following views were performed: Bilateral craniocaudal with tomosynthesis and bilateral mediolateral oblique with tomosynthesis. The breasts are heterogeneously dense, which may obscure small masses. There are no suspicious findings in either breast. Benign finding(s) are noted. There has been no significant interval change. IMPRESSION: There is no mammographic evidence of malignancy. A routine follow-up mammogram in 1 year is recommended or according to the [employer] recommendations. BIRADS Assessment 2: Benign finding. Lay Letter #1. THIS IS AN ELECTRONICALLY SIGNED REPORT READING PHYSICIAN: Edwardo Soto MD 08/16/2025 at 07:07 AM us Kevin Hollis MD IMG MAMMOGRAPHY ORDERAB LES Final Result * EKG 12 Lead (08/11/2025 11:28 AM CDT) 08/11/2025 11:2 8 AM CDT Narrative [facility] - 08/11/2025 3:38 PM CDT Vent Rate: 58 bpm RR Interval: 1020 msec WV Interval: 156 msec QRS Duration: 85 msec QT Interval: 416 msec QTC Interval: 414 msec P-R-T [place]: 58 - 43 - 51 degrees IMPRESSION: SINUS BRADYCARDIA BORDERLINE ECG Electronically Signed By: Hipolito Madrigal Procedure Note Wing Madrigal MD - 08/11/2025 Vent Rate: 58 bpm RR Interval: 1020 msec WV Interval: 156 msec QRS Duration: 85 msec QT Interval: 416 msec QTC Interval: 414 msec P-R-T [place]: 58 - 43 - 51 degrees IMPRESSION: SINUS BRADYCARDIA BORDERLINE ECG Electronically Signed By: Hipolito Madrigal us Kevin Hollis MD ECG ORDERABLES Final R esult [facility] * CBC auto differential (08/11/2025 11:23 AM CDT) WBC 5.0 3.1 - 11.0 x10^3/uL [facility] RBC 4.30 4.00 - 5.10 x10^6/uL [facility] HGB 13.0 12.5 - 15.3 g/dL [facility] HCT 37.7 35.0 - 45.0 % [facility] MCV 87.7 82.0 - 98.0 fL [facility] MCH 30.2 27.2 - 33.3 pg [facility] MCHC 34.5 32.0 - 36.0 g/dL [facility] RDW-CV 12.2 11.5 - 14.7 % [facility] SD-RDW 38.8 36.5 - 50.0 fL [facility] Platelets 161 147 - 370 x10^3/uL [facility] MPV 10.4 9.1 - 12.1 fL [facility] NE% 60.8 42.0 - 76.0 % [facility] %LYMPH 29.3 13.5 - 48.0 % [facility] %MONO 7.3 3.5 - 14.0 % [facility] % Eosinophils 1.8 0.0 - 7.0 % [facility] % Basophils 0.6 0.0 - 1.5 % [facility] Imm Gran Relative 0.2 0.0 - 1.0 % [facility] NE# 3.0 1.2 - 7.3 x10^3/uL [facility] Lymphs # 1.5 0.7 - 3.5 x10^3/uL [facility] [place]# 0.4 0.2 - 0.9 x10^3/uL [facility] Eosinophil # 0.1 0.0 - 0.5 x10^3/uL [facility] Baso# 0.0 0.0 - 0.1 x10^3/uL [facility] Imm Gran Absolute 0.0 0.0 - 0.1 x10^3/uL [facility] NRBC % 0.00 0.00 - 0.10 /100 WBC [facility] Blood 08/11/2025 11:2 3 AM CDT 08/11/2025 11:23 AM CDT Comment:- Narrative [facility] - 08/11/2025 11:44 AM CDT Testing performed at [facility], [address] [place] [address]. CLIA [id number] Phone [phone] Ext [phone] [employer] Screw Machine Operator Rusty Leal MD Kevin Hollis MD LAB BLOOD ORDERABLES Fi nal Result Performing Organization Address [facility] Co de Phone Number [facility] [address] [place] [address] [phone] * Hepatitis C antibody (08/11/2025 11:23 AM CDT) Pathologist [facility] Hep C Ab Nonreactive Nonreactive [facility] Blood 08/11/2025 11:2 3 AM CDT 08/11/2025 11:23 AM CDT Comment:- Narrative [facility] - 08/17/2025 4:24 PM CDT Testing performed at [facility], [address] [place] [address]. CLIA [id number] Phone [phone] Ext [phone] [employer] Spindle Screw Machine Operator Rusty Leal MD Kevin Hollis MD LAB BLOOD ORDERABLES Fi nal Result Performing Organization Address [facility] Co de Phone Number [facility] [address] [place] [address] [phone] * 25 Hydroxy Vitamin D (08/11/2025 11:23 AM CDT) Vitamin D, 25-Hydroxy 43.7 >29.9 ng/ml [facility] Comment: : Deficient <20.0 ng/ml Insufficient 20.0-29.9 ng/ml Sufficient > or = 30 ng/ml Clinical Correlation Essential When testing samples from patients whose predominant form of vitamin D is vitamin D2, such as patients receiving vitamin D2 supplementation, results that are subtherapeutic should be confirmed with another method, such as LC-MS/MS, before being used for patient management. Blood 08/11/2025 11:2 3 AM CDT 08/11/2025 11:23 AM CDT Comment:- Narrative [facility] - 08/11/2025 1:17 PM CDT Testing performed at [facility], [address] [place] [address]. CLIA [id number] Phone [phone] Ext [phone] Multiple Spindle Screw Machine Operator Rusty Leal MD Kevin Hollis MD LAB BLOOD ORDERABLES Fi nal Result Performing Organization Address [facility] de Phone Number [address] [phone] * Hepatitis B surface antibody (08/11/2025 11:23 AM CDT) [facility] Hep B Surface Ab 12.56 mIU/mL [facility] INTERPRETATION Immune [facility] Comment: Nonimmune <12.0 Immune >=12.0 Blood 08/11/2025 11:2 3 AM CDT 08/11/2025 11:23 AM CDT Comment:- Narrative [facility] - 08/17/2025 4:24 PM CDT Testing performed at [facility], [address] [place] [address]. CLIA [id number] Phone [phone] Ext [phone] [employer] Spindle Screw Machine Operator Rusty Leal MD Kevin Hollis MD LAB BLOOD ORDERABLES Fi nal Result Performing Organization Address [facility] Co wa Phone Number [facility] [address] [place] [address] [phone] * Hepatitis B surface antigen (08/11/2025 11:23 AM CDT) Hep B Surface Ag Nonreactive Nonreactive [facility] Blood 08/11/2025 11:2 3 AM CDT 08/11/2025 11:23 AM CDT Comment:- Narrative [facility] - 08/17/2025 4:24 PM CDT Testing performed at [facility], [address] [place] [address]. CLIA [id number] Phone [phone] Ext [phone] [employer] Sp[employer] Scre[employer] Machine Operator Rusty Leal MD Kevin Hollis MD LAB BLOOD ORDERABLES Fi nal Result Performing Organization Address City/[facility]/ZIP Co de Phone Number [facility] [address] [place] [address] [phone] * (ABNORMAL) Uric acid (08/11/2025 11:23 AM CDT) [facility] Uric Acid 2.4(L) 2.6 - 6.0 mg/dL [facility] Blood 08/11/2025 11:2 3 AM CDT 08/11/2025 11:23 AM CDT Comment:- Narrative [facility] - 08/11/2025 1:06 PM CDT Testing performed at [facility], [address] [place] [address]. CLIA [id number] Phone [phone] Ext [phone] [employer] Spindle Screw Machine Operator Rusty Leal MD Kevin Hollis MD LAB BLOOD ORDERABLES Fi nal Result [facility] [address] [place] [address] [phone] * TSH (08/11/2025 11:23 AM CDT) [facility] TSH 1.628 0.350 - 4.940 uIU/mL [facility] Blood BLOOD SPECIMEN / Unknown 08/11/2025 11:23 AM CDT 08/11/2025 11:23 AM CDT Comment:- Narrative [facility] - 08/11/2025 1:17 PM CDT Testing performed at [facility], [address] [place] [address]. CLIA [id number] Phone [phone] Ext [phone] Multiple Spindle Screw Machine Operator Rusty Leal MD Kevin Hollis MD LAB BLOOD ORDERABLES Fi nal Result Performing Organization Address [facility] Co de Phone Number [facility] [address] [place] [address] [phone] * Hemoglobin A1c (08/11/2025 11:23 AM CDT) Hemoglobin A1C 5.2 % [facility] Comment: . Nondiabetic Patient: 4.0 - 5.6 % Prediabetic Patient: 5.7 - 6.4 % Diabetic Patient: >= 6.5 % Controlled Diabetic Patient: < 7.0 % Clinical correlation is essential Estimated Avg Glucose 103 mg/dl [facility] Blood 08/11/2025 11:2 3 AM CDT 08/11/2025 11:23 AM CDT Comment:- Narrative [facility] - 08/11/2025 11:56 AM CDT Testing performed at [facility], [address] [place] [address]. CLIA [id number] Phone [phone] Ext [phone] [employer] Spindle Screw Machine Operator Rusty Leal MD Kevin Hollis MD LAB BLOOD ORDERABLES Fi nal Result Performing Organization Address [facility] Co de Phone Number [facility] [address] [place] [address] [phone] * (ABNORMAL) Lipid panel (08/11/2025 11:23 AM CDT) Cholesterol 172 0 - 200 mg/dL [facility] Comment:Cholesterol preferre d <200 mg/dL. Clinical correlation is essential. Triglycerides 91 0 - 200 mg/dL [facility] HDL Cholesterol 42(L) >60 mg/dL [facility] LDL, Calculated 111.8 mg/dL [facility] Comment: : <100 Optimal 100-129 Near Optimal/Above Optimal 130-159 Borderline High 160-189 High >or =190 Very High Cholesterol/HDL Ratio 4.1 [facility] Comment:HDL/Chol Ratio Low R isk 1:3.3-1:4.3, Clinical Correlation essential. Blood 08/11/2025 11:2 3 AM CDT 08/11/2025 11:23 AM CDT Comment:- Narrative [facility] - 08/11/2025 1:06 PM CDT Testing performed at [facility], [address] [place] [address]. CLIA [id number] Phone [phone] Ext [phone] Multiple Spindle Screw Machine Operator Rusty Leal MD Kevin Hollis MD LAB BLOOD ORDERABLES Fi nal Result Performing Organization Address City/State/[facility] Co de Phone Number [facility] [address] [place] [address] [phone] * (ABNORMAL) Comprehensive metabolic panel (08/11/2025 11:23 AM CDT) Glucose 88 60 - 100 mg/dL [facility] Comment: : Fasting Plasma Glucose (FPG) <100 MG/DL Impaired Fasting Glucose (IFG) 100-125 MG/DL Provisional Diagnosis of Diabetes Mellitus > or = 126 MG/DL (Diagnosis Must Be Confirmed) BUN 11 7 - 19 mg/dL [facility] Creatinine 0.70 0.60 - 1.20 mg/dL [facility] Glomerular Filtration Rate Estimate 106 >90 mL/min/1.7 3m2 [facility] Comment:The estimated GFR ballard s not been validated for women or patients with serious comorbid conditions, or with extremes of body size, muscle mass, or nutritional status. Calcium 8.8 8.4 - 10.2 mg/dL [facility] Sodium 138 136 - 145 mmol/L [facility] Potassium 4.0 3.5 - 4.6 mmol/L [facility] Chloride 109 99 - 111 mmol/L [facility] CO2 22.9 21.0 - 32.0 mmol/L [facility] Albumin 3.5 3.5 - 5.0 g/dL [facility] Total Protein 7.3 6.1 - 8.0 g/dL [facility] Bilirubin Total 0.5 0.2 - 1.2 mg/dL [facility] Alkaline Phosphatase 65 40 - 150 U/L [facility] AST 35(H) 5 - 34 U/L [facility] ALT 21 0 - 55 U/L [facility] Blood 08/11/2025 11:2 3 AM CDT 08/11/2025 11:23 AM CDT Comment:- Narrative [facility] - 08/11/2025 1:06 PM CDT Testing performed at [facility], [address] [place] [address]. CLIA [id number] Phone [phone] Ext [phone] Multiple Spindle Screw Machine Operator Rusty Leal MD Kevin Hollis MD LAB BLOOD ORDERABLES Fi nal Result [facility] [address] [place] [address] [phone] * MRI Ankle wo Contrast (06/13/2025 1:51 PM CDT) Anatomical Region Laterality Modality Leg, Ankle, Foot Magnetic Resona nce Laura York DP IMG MRI ORDERABLES Final Re sult * MRI Foot wo Contrast (06/13/2025 1:29 PM CDT) Anatomical Region Laterality Modality Foot Magnetic Resonan ce Laura York DPAldo IMG MRI ORDERABLES Final Re sult from Last 3 Months Insurance Care Teams Horologist Apprentice Relationship Specialty Start Date End Date Kevin Hollis MD [facility] [place] [address] PCP - General Family Medicine 08/11/25
--- OUTSIDE RECORDS SUMMARY | 2025-09-02 14:58 | XMS_ITS | Patient Health Record ---
Author Organization [facility] As [employer] [facility] Address [address] [place] [address] Care Team Providers Care Baggage Smasher Name Role Phone Luann Price Unavailable [phone] Reason For Referral No Information Immunizations Vaccine Route Administration Date Status Comme nts Influenza, injectable, MDCK, preservative free Unknown 08/23/2019 Administered Influenza, injectable, MDCK, preservative free Unknown 09/08/2021 Administered Novel [id number], preservative free Unknown 08/11/2020 Administered Social History Social History Additional Details Category Social Info Options Details Migrated Social History Migrated Social History Alcohol Intake: None 06/06/2023,Tobacco Years: Former smoker 06/06/2023 Plan Of Treatment No Information Insurance Providers Payer Name Payer Address Payer Phone Subscriber Number Group Number Insured Name Patient Relationship to Insured Coverage Start Date Coverage End Date [place] [employer] Ppo [address] [place] [address] [id number] RADHA BENAVIDEZ Self - patient is the insured Medical (General) History Surgical History Surgery Date(Month/Year) Sinus surgery 12/19/2012 Tonsilectomy/adenoids 12/22/2004 Hysterectomy (42807) 02/17/2012 Removal of gallbladder (42964) 8
--- OUTSIDE RECORDS SUMMARY | 2025-09-02 14:58 | XMS_ITS | Patient Health Record ---
Author Organization [employer] Address [address] [facility]. [address] [place] [phone] Care Team Providers Care Forest Fire Officer Name Role Phone Donald INWARD TOLL OPERATOR INWARD TOLL OPERATOR, Deirdre Primary Care Provider Unavailab le Allergies [...] W/U Status Risk Notes Problem Weight loss (271531621) Weight loss (R63.4) Active confirmed Problem Abdominal pain (24852204) Abdominal pain (R10.9) Active confirmed Problem History of polyp of colon (situation) (884657125) History of colon polyps (Z86.010) Active confirmed Plan Of Treatment No Information Insurance Providers Payer Name Payer Address Payer Phone Subscriber Number Group Number Insured Name Patient Relationship to Insured Coverage Start Date Coverage End Date Blue Access PPO [address] [place] [address] [id number] [employer]aquelin Self - patient is the insured Medical (General) History Medical History History ICD Code IBS Hemorrhoids Colitis GERD Lactose Intolerance Urethral Stricture Skin Disorder Hearing Loss Rheumatoid Arthritis Anxiety/Mood Disorder Surgical History Surgery Date(Month/Year) Colonoscopy (Dr. Justice Baeza) 04/2023 Flex Sigmoidoscopy 12/2022 Edward Fundoplication 2004 Hernia Repair Hemorrhoidectomy Cholecystectomy Hysterectomy Hospitalization History Reason Date(Month/Year) [facility] Hospital: Small Bowel Obstruction
--- OUTSIDE RECORDS SUMMARY | 2025-09-02 14:58 | XMS_ITS | Clinical Summary ---
Author Organization [facility] Address [address] [place] [address] Care Team Providers Care Scientific Database Curator Name Role Phone Cornelio Hernandez MD Primary Care Provider [phone] Source Comments [facility],non-owned Affiliates and Associated Physician Practices is amultiple site organization consisting of ambulatory clinics and hospital sitesin [place], [place], [place] and [place]. This disclosure is being madepursuant to the Care Everywhere program and may not contain all information available regarding this patient. Last updated 18.[facility] Allergies Active Allergy Reactions Criticality Noted [...] of 3 - 19+ 3-dose series) 1996 DEPRESSION SCREENING 11/17/2024 COVID-19 VACCINE (4 - 2024-2 6 season) 2025 12/02/2021, 06/01/2021, 05/11/2021 INFLUENZA VACCINE (#1) 2025 , 08/11/2020, 08/23/2019 [...] this topic Medical Devices Implanted Type Area Spring Upholsterer Device Identifier Shelf Expiration Date Model / Serial / Lot Mesh Srg Ventralight St Sepra 8x6in Implanted:Qty: 1 on 08/13/2022 by Brian Yañez MD at [facility] [employer] 01/14/2024 [id number] / / [id number] Insurance COUNTS INCLUDE 234 BEDS AT [facility] AN[facility] Advance Directives * Full Code (Latest Code Status on File) Date Activated Date Inactivated Comments 08/26/2022 8:50 PM 08/29/2022 1:30 AM Care Teams Scientific Database Curator Relationship Specialty Start Date End Date Cornelio Hernandez MD [address] [place] [address] [phone] PCP - General 09/02/22
--- OUTSIDE RECORDS SUMMARY | 2025-09-02 14:58 | XMS_ITS | Continuity of Care Document ---
Author Organization [facility] Address [address] [place] [address] Phone Care Team Providers Care Kennel Assistant Name Role Phone Unavailable Unavailable Unavailable Unavailable Unavailable Unavailable Unavailable Unavailable Unavailable Unavailable Unavailable Unavailable Unavailable Unavailable Unavailable Unavailable Unavailable Unavailable Unavailable Unavailable Unavailable Unavailable Unavailable Unavailable Unavailable Unavailable Unavailable Unavailable Unavailable Unavailable Unavailable Unavailable Unavailable Unavailable Unavailable Unavailable Unavailable Unavailable Unavailable Unavailable Unavailable Unavailable Unavailable Unavailable Unavailable Unavailable Unavailable Unavailable Unavailable Unavailable Unavailable Unavailable Unavailable Unavailable Unavailable Unavailable Unavailable Unavailable Unavailable Unavailable Unavailable Unavailable Unavailable Unavailable Unavailable Unavailable Unavailable Unavailable Unavailable Unavailable Unavailable Unavailable Unavailable Unavailable Unavailable Unavailable Unavailable Unavailable Unavailable Unavailable Unavailable Unavailable Unavailable Unavailable Unavailable Unavailable Unavailable Unavailable Unavailable Unavailable Unavailable Unavailable Unavailable Unavailable Unavailable Unavailable Unavailable Unavailable Unavailable Unavailable Unavailable Unavailable Unavailable Unavailable Unavailable Unavailable Unavailable Unavailable Unavailable Unavailable Unavailable Unavailable Unavailable Unavailable Unavailable Unavailable Unavailable Unavailable Unavailable Unavailable Unavailable Unavailable Unavailable Unavailable Unavailable Unavailable Unavailable Unavailable Unavailable Unavailable Unavailable Unavailable Unavailable Unavailable Unavailable Unavailable Unavailable Unavailable Unavailable Unavailable Problems Foot pain Onset:18-Apr-2025 8:53 Neuropathic pain of ankle, right Onset:14-Apr-2025 16:13 Right ankle pain Onset:14-Apr-2025 16:10 Nodule of skin of left upper extremity Onset:01-Mar-2025 10:18 Decreased GFR Onset:09-Feb-2025 16:43 Urine ketones Onset:09-Feb-2025 8:36 Allergies Onset:08-Feb-2025 15:00 Depression with anxiety Onset:08-Feb-2025 15:00 History of post op nausea/vomiting(Z87.898) Onset:19-Oct-2024 QYVMSUNEPDEXEC QYVMSUNEPDEXEC Comments:Personal history of other specified conditions METS > 4(Z78.9) Onset:19-Oct-2024 QYVMSUNEPDEXEC QYVMSUNEPDEXEC Comments:Other specified health status Other(N15.8) Onset:19-Oct-2024 QYVMSUNEPDEXEC QYVMSUNEPDEXEC Comments:Other specified renal tubulo-interstitial diseases Other(Z87.19) Onset:19-Oct-2024 QYVMSUNEPDEXEC QYVMSUNEPDEXEC Comments:Personal history of other diseases of the digestive system Tubal ligation(Z98.51) Onset:19-Oct-2024 QYVMSUNEPDEXEC QYVMSUNEPDEXEC Comments:Tubal ligation status Hysterectomy(Z90.710) Onset:19-Oct-2024 QYVMSUNEPDEXEC QYVMSUNEPDEXEC Comments:Acquired absence of both cervix and uterus Osteoarthritis(M19.90) Onset:19-Oct-2024 QYVMSUNEPDEXEC QYVMSUNEPDEXEC Comments:Unspecified osteoarthritis, unspecified site Irritable bowel syndrome with both constipation and diarrhea Onset:05-Oct-2024 15:38 Pelvic floor weakness in female Onset:05-Oct-2024 15:38 Status:Resolved Urinary frequency Onset:24-Sep-2024 14:38 Acute sinusitis Onset:19-Aug-2024 16:10 Skin cancer screening Onset:19-Aug-2024 16:10 Encounter for immunization Onset:19-Aug-2024 15:53 Acute URI Onset:23-Jul-2024 8:49 Ovarian cyst Onset:05-Jul-2024 8:25 Chills (without fever) Onset:05-Jul-2024 8:23 Breast cancer screening(Z12.3) Onset:19-Apr-2024 13:29 Encounter for well woman exam Onset:19-Apr-2024 13:28 Status:Resolvedas Abnormal CT of the chest Onset:19-Apr-2024 12:01 Status:Resolvedas Left breast lump Onset:19-Apr-2024 12:01 Interstitial cystitis Onset:19-Apr-2024 9:41 History of IBS Onset:19-Apr-2024 9:21 Increased frequency of urination Onset:19-Apr-2024 9:08 History of urinary tract infection Onset:19-Apr-2024 9:06 Status:Resolvedas History of urinary retention Onset:19-Apr-2024 9:06 Status:Resolvedas History of abdominal pain Onset:19-Apr-2024 9:06 Status:Resolvedas Dysuria Onset:19-Apr-2024 8:54 Constipation Onset:19-Apr-2024 8:47 Irritable bowel syndrome with both constipation and diarrhea(K58.2) Deborah Rowley Allergies and Adverse Reactions amoxicillin(Allergy) Reaction:Urticaria (disorder ) penicillin(Allergy) Reaction:Urticaria (disorder ) ketorolac(Allergy) Reaction:Abnormal breathing (finding) acetaminophen-propoxyphene(A llergy) Reaction:Other-Describe *,Ab normal breathing (finding) Vancomycin(Allergy) Reaction:Other-Describe * Comments:Short of breath. Tolerated without complication one dose 10/22/2024 OR sulfamethoxazole(Allergy) Reaction:Itching of skin,Urt icaria (disorder) Reaction:Urticar ia (disorder) acetaminophen(Allergy) Reaction:Urticaria (disorder ) nitrofurantoin(Allergy) Reaction:Urticaria (disorder ) levoFLOXacin(Allergy) Reaction:Urticaria (disorder ) Natural Latex Rubber(Adverse Event) Reaction:Urticaria (disorder ) Amoxicillin CAPS(Allergy) Reaction:Hives / Urticaria,H vani Contrast Media Ready-Box MIS C(Allergy) Reaction:Hives / Urticaria,H vani Acetaminophen CAPS(Allergy) Reaction:Hives / Urticaria,H vani,Short of breath Penicillins(Allergy) Reaction:Hives / Urticaria Bactrim TABS(Allergy) Reaction:Hives / Urticaria Ketorolac Tromethamine TABS( Allergy) Reaction:Short of breath Vancomycin(Allergy) Reaction:Shortness of breath Medications polyethylene glycol 3350 170 00 MG Powder for Oral Solution;MIX ONE CAPFUL WITH WATER AND DRINK ONCE DAILY Quantity:1 Jerilyn Jake Start:30-May-2025 Comments:PEG 3350 17 GM/SCOOP Oral Powder MIX ONE CAPFUL WITH WATER AND DRINK ONCE DAILY Quantity: 1 Refills: 0 Ordered: 21-Jun-2025 Jake [employer]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 Start : 27-Apr-2025 End : 12-Jul-2025 Complete polyethylene glycol 3350 Quantity:0 Refills:0 Deirdre Tawny Procedures Cystourethroscopy, with dave bration and/or dilation of urethral stricture or stenosis, with or without meatotomy, with or without injection procedure for cystography, male or female Date:22-Oct-2024 Hysterectomy Status:Completed Umbilical hernia repair Status:C ompleted Comments:x3; Knee surgery Status:Completed Edward fundoplication laparoscopic Status:Completed Bilateral salpingectomy Status:C ompleted Partial hysterectomy Status:Comp leted Cholecystectomy Status:Completed MRI ANKLE RIGHT WITHOUT CONTRAST Date:13-Jun-2025 16:36 Status:Completed MRI FOOT RIGHT WO CONTRASTResult:MRI Foot Right wo ContrastFinalCLINICAL INDICATION: Chronic foot painTECHNIQUE: Multiplanar multi sequential MR imaging of the right forefoot and ankle was performed without IV or intra-articular contrast.COMPARISON: X-ray dated 04/14/2022.FINDINGS:Image quality degraded by motion artifact.Bone/Cartilage: No bone marrow edema or T1 replacement.. No acute fracture, dislocation or avascular necrosis. Talar dome is intact. No full-thickness cartilage loss. Mild hallux valgus deformity. Lobulated T2 hyperintensity in the 5th metatarsal head, likely intraosseous ganglion or cystic change.TENDONS:Medial Flexor Tendons: Tibialis posterior, flexor digitorum longus, and flexor hallucis longus are intact, without tendinosis, tear, or tenosynovitis.Anterior Extensor Tendons: Tibialis anterior, extensor hallucis longus, and extensor digitorum longus are intact, without tendinosis, tear, or tenosynovitis.Peroneal Tendons: Peroneus longus and brevis are intact, without tendinosis, tear, or tenosynovitis.Achilles: Achilles tendon is intact, without tendinosis or tear.Plantar Fascia: Plantar fascia is intact, without thickening or tear.LIGAMENTS:Medial Ligaments: The superficial and deep deltoid ligaments are intact. Spring ligament complex is intact.Lateral Ligaments: Irregularity with undulation of the ATFL. Mild thickening of the CFL. Posterior talofibular, and calcaneofibular ligaments are intact.Syndesmotic Ligaments: The anterior tibiofibular and posterior tibiofibular ligaments are intact.The visualized tendons and ligaments in the forefoot appear intact.Miscellaneous: No joint effusion. Trace fluid in the 2nd intermetatarsal bursa.IMPRESSION:1. No acute fracture, ligamentous or tendon tear.2. Sequela of prior lateral ankle ligaments injury, involving the ATFL and CFL with probable partial tear/granulation tissue versus chronic sprain.3. Mild hallux valgus deformity.Electronically signed by: Ramesh Sheehan MDSigned Date/Time: 06/14/2025 08:50 AM CDT RPWorkstation: [id number] Nbr: [id number] Date:13-Jun-2025 15:50 Status:Completed KUB 1 VIEWResult:KUB 1 ViewFinalCLINICAL INDICATION: Abdominal Pain CPT Code: [id number]: 2 views, supine abdominal radiographsCOMPARISON: CT abdomen and pelvis of 03/10/2025FINDINGS:Bowel gas: Nonobstructive bowel gas pattern. No evidence of large pneumoperitoneum.Solid organs: Normal.Stool volume: Moderate stool burden.Calcifications: None.Osseous structures: No acute osseous abnormality.Lung bases: Visualized lung bases are clear.Other: Multiple metallic mima are seen in the upper midabdomen and right upper quadrant. Multiple metallic rings are seen in the mid abdomen.IMPRESSION:1. Nonobstructive bowel gas pattern.2. Moderate stool burden.Electronically signed by: Treva Malik MDSigned Date/Time: 05/29/2025 10:59 AM CDT RPWorkstation: [id number] Nbr: [id number] Date:29-May-2025 10:41 Status:Completed ANKLE RIGHT 2 VIEWSResult:Ankle Right 2 ViewsFinalCLINICAL INDICATION: Right ankle painTECHNIQUE: 2 views, AP and lateral radiographs of right ankleCOMPARISON: No prior study for comparison.FINDINGS:Bone: Small ossific density is seen at the tip of the right fibula without associated soft tissue swelling likely represents an sequelae of chronic injury. Os trigonum is seen. No acute displaced fracture or dislocation.Joint alignment: Normal.Joint fluid: None.Soft tissues: No focal radiographic soft tissue swelling.IMPRESSION:1. No acute displaced fracture or dislocation.2. Small ossific density at the tip of the right fibula without associated soft tissue swelling likely represents an sequelae of chronic injury.Electronically signed by: Treva Malik MDSigned Date/Time: 04/17/2025 04:30 PM CDT RPWorkstation: [id number] Nbr: [id number] Date:14-Apr-2025 16:18 Status:Completed US PELVISResult:US PelvisFinalCLINICAL INDICATION: Ovarian cystCOMPARISON: NoneTECHNIQUE: Grayscale and color flow imaging was performed with transabdominal approach.FINDINGS:UTERUS:Status post hysterectomy.OVARIES:Right ovary measures 4 x 2.3 x 2.4 cm.Left ovary measures 4.1 x 2.2 x 2.5 cm.Ovaries are normal in size and blood flow.ADNEXA:No adnexal mass. No free fluid in the adnexa or posterior cul-de-sac.IMPRESSION:1. Status post hysterectomy.2. Unremarkable ovaries.Electronically signed by: Ramesh Sheehan MDSigned Date/Time: 03/16/2025 07:06 PM CDT RPWorkstation: [id number] Nbr: [id number] Date:14-Mar-2025 11:22 Status:Completed CT ABDOMEN PELVIS WITHOUT CONTRASTResult:CT Abdomen Pelvis without ContrastFinalEXAMINATION: CT ABDOMEN PELVIS WITHOUT IV CONTRASTCLINICAL HISTORY: Bilateral flank pain, hx of kidney stones..COMPARISON: CT Abdomen pelvis 09/21/2024.TECHNIQUE: Axial CT images of the abdomen and pelvis was obtained without intravenous or oral contrast. Reformatted images in the coronal and sagittal planes were obtained. This exam was performed according to our departmental dose-optimization program, which includes automated exposure control, adjustment of the mA and/or kV according to patient size and/or use of iterative reconstruction technique.Dose Range: Up-to-date CT equipment and radiation dose reduction techniques were employed. CTDIvol: 11.0 mGy, DLP: 619.59 mGy*cmFINDINGS:CT ABDOMENThe visualized lung bases and base of the heart are unremarkable. Lack of intravenous contrast limits evaluation of the solid abdominal viscera. The liver is within normal limits. The gallbladder is surgically absent. The adrenal glands, spleen and pancreas are within normal limits. The kidneys are unremarkable. No nephrolithiasis or hydronephrosis. There are surgical clips along the gastroesophageal junction. The stomach is within normal limits. The loops of small and large bowel within the abdomen are within normal limits. No free fluid or free air. No lymphadenopathCT PELVISThe bladder is within normal limits. The uterus is absent. The ovaries are within normal limits . The visualized loops of small and large bowel within the pelvis are unremarkable. The appendix is normal. No pelvic free fluid. No lymphadenopathy.Stable postoperative changes of ventral herniorrhaphy. Stable small fat-containing left lumbar hernia. No acute fracture or suspicious focal osseous lesion evident.IMPRESSION:No acute abdominal or pelvic process. No nephrolithiasis or hydronephrosis.Electronically signed by: Yakelin Thomas MDSigned Date/Time: 03/10/2025 10:05 PM CDT RPWorkstation: [id number] Nbr: [id number] Date:10-Mar-2025 20:33 Status:Completed CHEST 2 VIEWSResult:CHEST 2 VIEWSFinalEXAM: XR Chest, 2 ViewsCLINICAL HISTORY: The patient is 49 years old and is Female; chest pressure bilateral CPT Code: [id number]: Frontal and lateral views of the chest.COMPARISON: XR Chest dated 07/30/2024FINDINGS: LUNGS: Unremarkable. No consolidation. PLEURAL SPACE: Unremarkable. No pneumothorax. HEART: Unremarkable. No cardiomegaly. MEDIASTINUM: Unremarkable. Normal mediastinal contour. BONES/JOINTS: Unremarkable. 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 Radiologist was not present during the procedure.PHYSICIAN: Dr. Brayden QuigleyFLUOROSCOPY TIME: 21 secNUMBER OF IMAGES: 3FINDINGS:This is an administrative dictation for utilization of fluoroscopy, retrograde pyelograms.IMPRESSION:Fluoroscopy less than one hour. Images available for correlation with procedure note.Electronically signed by: Treva Wayneaubree MDSigned Date/Time: 10/22/2024 02:01 PM RE[employer] OPER[employer] RPWorkstation: [id number] Nbr: [id number] Date:22-Oct-2024 9:29 Status:Completed CT ABDOMEN PELVIS WITHOUT CONTRASTResult:CT Abdomen Pelvis without ContrastFinalEXAMINATION: CT Abdomen Pelvis without ContrastRadLex: CT ABDOMEN PELVIS WITHOUT IV CONTRASTCLINICAL HISTORY:Pain CPT Code: 57449;TECHNIQUE: Unenhanced CT of the abdomen and pelvis with coronal and sagittal reformats provided. All CT scans at this facility use dose modulation, iterative reconstruction, and/or weight based dosing when appropriate to reduce radiation dose to as low as reasonably achievable.COMPARISON: 09/01/2024FINDINGS:Support devices: None.LOWER CHEST: Unremarkable.LIVER: Normal size and morphology without focal lesion.BILIARY: The gallbladder is surgically absent. No intra- or extrahepatic biliary ductal dilation.PANCREAS: Normal.SPLEEN: Normal.ADRENALS: Normal.KIDNEYS: Normal.BLADDER: Normal.PELVIS: No pelvic mass. Status post hysterectomy.BOWEL: Normal caliber bowel without wall thickening. Normal appearance of the appendix.LYMPH NODES: None enlarged.PERITONEUM: No intraabdominal free fluid, free air, or mesenteric fat stranding.VESSELS: Normal course and caliber.MUSCULOSKELETAL: No acute osseous abnormality. Ventral hernia mesh. Fat-containing left flank/lumbar hernia.IMPRESSION:1. No acute intra-abdominal findings.2. Fat-containing left flank/lumbar hernia.Electronically signed by: Neal Fregoso MDSigned Date/Time: 09/21/2024 08:53 PM REFIN[employer] OPER[employer] RPWorkstation: [id number] Nbr: [id number] Date:21-Sep-2024 20:11 Status:Completed CT ABDOMEN PELVIS WITHOUT CONTRASTResult:CT Abdomen Pelvis without ContrastFinalCLINICAL INDICATION: Low abdominal pain x 4 days.TECHNIQUE:CT abdomen and pelvis was performed, without administration of intravenous contrast, as per department protocol. Axial, sagittal, and coronal reconstructions were obtainedThis exam was performed according to our departmental dose-optimization program which includes automated exposure control, adjustment of the mA and/or kV according to patient size and/or use of iterative reconstruction technique.COMPARISON: 08/21/2024.FINDINGS:Lower Chest: Visualized lung bases are clear. Heart is normal in size. No pericardial or pleural effusion.Liver: Normal in size and contour. No focal lesion.Bile Ducts: Normal caliber.Gallbladder: No radiopaque stones, wall thickening, or pericholecystic fluid.Pancreas: No contour abnormality, peripancreatic stranding or dilation of the pancreatic duct.Spleen: Normal in size and contour.Adrenals: Normal.Kidneys and Ureters: Normal size and contour. No hydronephrosis or renal calculi. No suspicious renal mass.Bowel:Stomach: Unremarkable.Small Intestine: Normal course and caliber of the bowel loops. No bowel obstruction.Appendix: Normal appendix.Colon: Abundant stool within the colon. Otherwise, unremarkable.Reproductive Organs: Uterus is surgically absent. No adnexal mass.Bladder: Normal in appearance.Vessels: Abdominal aorta and inferior vena cava are normal in course and caliber.Lymph Nodes: No pathologic mesenteric or retroperitoneal lymph nodes.Peritoneum: No free air, free fluid, or fluid collection.Abdominal Wall: Status post ventral abdominal mesh hernia repair. No massMusculoskeletal: No acute abnormality or suspicious bony lesion.IMPRESSION:1. No acute CT abnormality seen in the abdomen or pelvis.2. Status post ventral abdominal mesh hernia repair.3. Abundant stool within the colon.Limited evaluation of solid organs due to lack of intravenous contrast.Electronically signed by: Ramesh Sheehan MDSigned Date/Time: 09/01/2024 04:50 PM CDT RPWorkstation: [id number] Nbr: [id number] Date:01-Sep-2024 16:13 Status:Completed KUB 1 VIEWResult:KUB 1 ViewFinalCLINICAL INDICATION: Constipation CPT Code: [id number]: 2 views, supine abdominal radiographsCOMPARISON: CT abdomen and pelvis of 06/05/2024FINDINGS:Bowel gas: Nonobstructive bowel gas pattern. No evidence of large pneumoperitoneum.Solid organs: Normal.Stool volume: Moderate stool burden.Calcifications: None.Osseous structures: No acute osseous abnormality.Lung bases: Visualized lung bases are clear.Other: Multiple pelvic contents are seen projecting over the mid abdomen. Multiple metallic mima are seen in the right upper quadrant.Multiple multiple metallic mima are seen in the mid upper abdomen.IMPRESSION:1. Nonobstructive bowel gas pattern.2. Moderate stool burden.Electronically signed by: Treva Malik MDSigned Date/Time: 08/21/2024 02:24 PM CDT RPWorkstation: [id number] Nbr: [id number] Date:21-Aug-2024 13:49 Status:Completed EKG 16 LeadResult:EKG 16 Lead- OTHERWISE NORMAL ECG -Sinus rhythmLow voltage, precordial leadsOrder #:[id number] by: Catarino Lewis MD Date:30-Jul-2024 12:41 MRI BRAIN/BRAINSTEM WITHOUT CONTRASTResult:MRI Brain/Brainstem without ContrastFinalHISTORY: Dizziness.TECHNIQUE: Pre infusion Multiplanar and multisequence MRI of the brain were obtained including sagittal T1, diffusion, axial T2 FLAIR, axial T2, axial T1, axial T2 gradient as well as sagittal T2 propeller weighted images..COMPARISON: CT brain done earlier on same day.FINDINGS:No acute intracranial hemorrhage, mass effect or midline shift. No restricted diffusion. Few scattered T2 FLAIR bilateral periventricular and subcortical white matter hyperintensities. Otherwise the rest of the Brain parenchyma appears unremarkable. Ventricles, cortical sulci and basal cisterns are normal. No intra-axial or extra-axial fluid collections. Subarachnoid spaces are normal. Incidental pericallosal lipoma noted. Prominent cisterna magna. Sella and suprasellar structures are unremarkable. Slightly prominent CSF space of left optic nerve.Major intracranial flow-voids are maintained.Midline structures and craniovertebral junction are normal.Calvarium and skull base are intact.Minimal mucosal opacification of ethmoidal air cells. Included orbits, rest of the paranasal sinuses and mastoid air cells are unremarkable.IMPRESSION:1. No acute intracranial abnormality.2. Few scattered T2 FLAIR bilateral periventricular and subcortical white matter hyperintensities, nonspecific and may represents early chronic microvascular ischemic changes.3. Slightly prominent CSF space of left optic nerve. Clinical correlation for papilledema.Electronically signed by: Meme Malik MDSigned Date/Time: 07/30/2024 11:48 AM CDT RPWorkstation: [id number] Nbr: [id number] Date:30-Jul-2024 10:55 Status:Completed CHEST SINGLE VIEWResult:Chest Single ViewFinalCLINICAL INDICATION: stroke/TIA CPT Code: 54419ZIYMYAMLG: Anteroposterior view of chest, one imageCOMPARISON: Chest radiograph dated 07/19/2024FINDINGS:Cardiac leads limits the evaluation of underlying lung parenchyma. Trachea is in midline. Lungs are well-aerated. No focal consolidation. No evidence of pulmonary edema. Cardiomediastinal silhouette is normal. No pneumothorax. No pleural effusions. No osseous abnormality. Visualized upper abdomen is unremarkable.IMPRESSION:No acute cardiopulmonary process.Electronically signed by: Meme Malik MDSigned Date/Time: 07/30/2024 11:01 AM CDT RPWorkstation: [id number] Nbr: [id number] Date:30-Jul-2024 10:14 Status:Completed CT BRAIN OR HEAD WITHOUT CONTRASTResult:CT Brain or Head without ContrastFinalINDICATION: Sudden onset of dizziness and blurry vision.COMPARISON: None.TECHNIQUE: Helical CT was performed through the brain without contrast. Multiplanar reconstructions were obtained in sagittal and coronal planes.RADIATION DOSE REDUCTION: The CT was performed with attention to patient dose reduction, as low as reasonably achievable (ALARA) while maintaining diagnostic image quality. This includes appropriate physician selected protocols to tailor the exam for minimum exposure.FINDINGS:No acute intracranial hemorrhage, extra-axial collections, mass effect or midline shift. The pickering-white matter junction is preserved. Ventricles, cortical sulci and basal cisterns are normal. Prominent cisterna magna.Orbits and orbital contents are unremarkable.Visualized paranasal sinuses and mastoid air cells are unremarkable.Bones of the calvarium and skull base are intact.IMPRESSION:No acute intracranial abnormality.Note: Findings were discussed with Dr. Erica Wren at 10:12 AM on 07/30/2024.Electronically signed by: Meme Malik MDSigned Date/Time: 07/30/2024 10:12 AM CDT RPWorkstation: [id number] Nbr: [id number] Date:30-Jul-2024 9:54 Status:Completed EKG 12 LeadResult:EKG 12 Lead- NORMAL ECG -Sinus rhythmOrder #:[id number] by: Catarino Lewis MD Date:30-Jul-2024 9:37 EKG 12 LeadResult:EKG 12 Lead- OTHERWISE NORMAL ECG -Sinus rhythmOrder #:[id number] by: Ector Perez MD Date:19-Jul-2024 3:46 CHEST 2 VIEWSResult:CHEST 2 VIEWSFinalEXAM DESCRIPTION:CHEST 2 VIEWS 07/19/2024 3:28 AM CDTRadLex: XR CHEST 2 VIEWSCLINICAL HISTORY:49 years Female, Shortness Of Breath CPT Code: [id number]:NoneTECHNIQUE: 2 PA and lateral radiographic views of the chestFINDINGS:Lungs are grossly clear. No evidence of pleural effusion or pneumothorax. Cardiomediastinal silhouette is within normal limits. Osseous structures appear unremarkable.Few nonspecific gas-distended bowel loops are present in the left upper quadrant. Cholecystectomy clips are seen in the right upper quadrant. Multiple surgical clips are also noted adjacent to the gastroesophageal junction. Ventral mesh hernia repair material projecting over the visualized upper abdomen is partially imaged.IMPRESSION: No radiographic evidence of acute cardiopulmonary processElectronically signed by: Merced Márquez MDSigned Date/Time: 07/19/2024 03:46 AM CDT RPWorkstation: [id number] Nbr: [id number] Date:19-Jul-2024 3:19 Status:Completed CT ABDOMEN PELVIS WITHOUT CONTRASTResult:CT Abdomen Pelvis without ContrastFinalNONCONTRAST CT SCANS ABDOMEN AND PELVISHISTORY: Pain CPT Code: [id number]: April 06, 2024.TECHNIQUE:Radiation dose reduction techniques were utilized, including automated exposure control and exposure modulation based on body size. Axial images were obtained from the lung bases to the symphysis pubis without oral or IV contrast per request.FINDINGS: Postsurgical changes are again noted about the GE junction as well as from cholecystectomy, ventral hernia repair, and hysterectomy. No nephrolithiasis or hydronephrosis.Remaining abdominal organs are otherwise unremarkable without benefit of IV contrast. Normal aorta and appendix. No constipation or diverticular disease. The GI tract not opacified for assessment but non obstructive in appearance. No adnexal masses or free fluid.IMPRESSION:1. No acute inflammatory process as best assessed by noncontrast technique.Electronically signed by: Elvis Chaidez MDSigned Date/Time: 06/05/2024 03:20 AM CDT RPWorkstation: [id number] Nbr: [id number] Date:05-Jun-2024 2:43 Status:Completed EKG 12 LeadResult:EKG 12 Lead- OTHERWISE NORMAL ECG -Sinus bradycardiaOrder #:[id number] by: Caleb Awan MD Date:22-May-2024 12:15 CT ABDOMEN PELVIS WITHOUT CONTRASTResult:CT Abdomen Pelvis without ContrastFinalCLINICAL INDICATION: Generalized abdominal pain. History of cholecystectomy. History of hernia repairTECHNIQUE: Pre contrast axial 3.75 mm sections were obtained through the abdomen and pelvis. Axial, sagittal, and coronal reconstructions were obtained.This exam was performed according to our departmental dose-optimization program which includes automated exposure control, adjustment of the mA and/or kV according to patient size and/or use of iterative reconstruction technique.COMPARISON: None.FINDINGS:Limited evaluation of visceral organs, vasculature and lymph nodes without intravenous contrast.Lower Chest: No Pleural effusions. Visualized heart appears unremarkable. Right basilar atelectasis.Liver: Normal in size and contour. No focal hepatic lesions on this limited noncontrast study.Gallbladder and biliary ducts: Status post cholecystectomy. There is no intra or extrahepatic biliary ductal dilatation. Common bile duct is normal in caliber.Spleen: Normal.Pancreas: Normal.Adrenal glands: Both adrenal glands are normal and symmetrical in appearance.Both kidneys : Both the kidneys are normal in size. No renal calculi. No hydronephrosis. No focal renal lesions. No perinephritic fat stranding.Gastrointestinal tract: Postsurgical changes at the gastroesophageal junction. No focal bowel dilatation. Appendix is normal. Moderate amount of colonic stool burden. No free fluid in the upper abdomen. No pneumoperitoneum.Pelvis: Urinary bladder is decompressed. No adnexal masses. No free fluid in the pelvis.Lymph nodes: No enlarged abdominal or pelvic lymph nodes.Vasculature: Abdominal aorta is nonaneurysmal.Abdominal wall: Postsurgical changes of anterior abdominal wall repair. Midline surgical scar. Partially visualized asymmetric soft tissue nodularity of left breast, correlation to mammogram is recommended.Bones: No suspicious osseous destructive lesions.IMPRESSION:1. No acute abdominopelvic process.2. Postsurgical changes at the gastroesophageal junction. Moderate amount of colonic stool burden which can be seen with constipation.3. Partially visualized asymmetric soft tissue nodularity of left breast, correlation to mammogram is recommended.Electronically signed by: Meme Carnes Date/Time: 04/06/2024 10:00 AM CDT RPWorkstation: [id number] Nbr: [id number] Date:06-Apr-2024 9:33 Status:Completed Results UA DIPSTICK PNL UR STRIP.AUTO Ordered On:12-Aug-2025 23:25 12-Aug-2025 23:55 UROBILINOGEN UR STRIP.AUTO-MCNC1.0mg/dL(High) Range:0.2 BILIRUB UR STRIP.AUTO-MCNCNEGATIVE [mg/dL] Range:NEGA HGB UR STRIP.AUTO-MC NCNEGATIVE [{rbc}/uL] Range:NEGA GLUCOSE UR STRIP.AUTO-MCNCNEGATIVE [mg/dL] Range:NEGA SP GR UR STRIP.AUTO1.020 Range:1 .001-1.035 LEUKOCYTE ESTERASE U R QL STRIP.AUTONEGATIVE [{wbc}/uL] Range:NEGA PROT UR STRIP.AUTO-M CNCNEGATIVE [mg/dL] Range:NEGA NITRITE UR QL STRIP.AUTONEGATIVE Range:NEGA PH UR STRIP.AUTO5.5 Range:5-8 KETONES UR STRIP.AUTO-MCNCNEGATIVE [mg/dL] Range:NEGA COMMENTNONE COLOR URYELLOW CLARITY URTURBID 12-Aug-2025 23:42 SPECIMEN SOURCE XXXC LEAN CATCH URINE CBC W REFLEX MANUAL DIFF BLD Ordered On:29-May-2025 10:23 29-May-2025 10:37 MCV RBC AUTO87.9fL Range:83fL- 98fL PMV BLD AUTO10.9fL Range:9fL-12f L IMM GRANULOCYTES BLD QL AUTO0.4% IMM GRANULOCYTES NO. BLD0.02{[10*3/uL]} Range:0{[10*3/uL]}-0.1{[10*3 /uL]} RDW RBC AUTO40.5fL Range:36.4fL- 50fL HGB BLD-MCNC13.6g/dL Range:11.3g /dL-15g/dL MONOCYTES NO. BLD AUTO0.27{[10*3/uL]} Range:0.2{[10*3/uL]}-0.9{[10 *3/uL]} NEUTROPHILS NFR BLD AUTO69.5% WBC NO. BLD AUTO4.9{[10*3/uL]} R chris:3{[10*3/uL]}-11.4{[10* 3/uL]} EOSINOPHIL NO. BLD AUTO0.04{[10*3/uL]} Range:0{[10*3/uL]}-0.5{[10*3 /uL]} RBC NO. BLD AUTO4.64{[10*6/uL]} Range:3.8{[10*6/uL]}-5{[10*6 /uL]} NRBC/100 WBC BLD-RTO0.0{/100_WBCs} Range:0{/100_WBCs}-0.1{/100_ WBCs} DIFFERENTIAL METHOD BLDAUTOMATED NEUTROPHILS NO. BLD AUTO3.37{[10*3/uL]} Range:0.85{[10*3/uL]}-7.8{[1 0*3/uL]} BASOPHILS NO. BLD AUTO0.02{[10*3/uL]} Range:0{[10*3/uL]}-0.1{[10*3 /uL]} LYMPHOCYTES NFR BLD AUTO23.3% BASOPHILS NFR BLD AUTO0.4% EOSINOPHIL NFR BLD AUTO0.8% PLATELET NO. BLD DWMJ146{[10*3/uL]} Range:135{[10*3/uL]}-370{[10 *3/uL]} MONOCYTES NFR BLD AUTO5.6% HCT VFR BLD40.8% Range:34%-45% MCH RBC QN AUTO29.3pg Range:27pg -34pg MCHC RBC AUTO-MCNC33.3g/dL Range :31g/dL-35g/dL LYMPHOCYTES NO. BLD AUTO1.13{[10*3/uL]} Range:0.6{[10*3/uL]}-3.5{[10 *3/uL]} 29-May-2025 10:23 DIFF TYPEAUTOMATED D IFFERENTIAL PERFORMED COMP METAB 1999 PNL SERPL Ordered On:29-May-2025 10:23 29-May-2025 11:04 BUN/CREAT SerPl18.4 CHLORIDE BLDV-MUDS075kctr/L Rang e:98mmol/L-108mmol/L PROT SERPL-MCNC7.3g/dL Range:6.3 g/dL-8g/dL SODIUM SERPL-NPVO247lsod/L(Low) Range:136mmol/L-144mmol/L CO2 BLD-ZDNF35rusa/L(Low) Range: 22mmol/L-30mmol/L CREAT SERPL-MCNC0.8mg/dL Range:0 .5mg/dL-1.2mg/dL ALT SERPL-CCNC45{[U/L]}(High) Ra nge:5{[U/L]}-40{[U/L]} CALCIUM BLD-MCNC9.0mg/dL Range:8 .6mg/dL-10.2mg/dL ALBUMIN SERPL-MCNC3.9g/dL Range: 3.5g/dL-5.1g/dL POTASSIUM SERPL-SCNC4.2mmol/L Ra nge:3.4mmol/L-4.8mmol/L Comments:Mild hemolysis was detected during testing.Potassium value may be falsely elevated by as much as 0.3-0.7 mmol/L.A redraw will be performed upon request. GFR,OTHER(CKD-EPI)91 {[mL/min/1.7 3m2]} Range:89{[mL/min/1.73m2]}-0 BILIRUB SERPL-MCNC0.4mg/dL Range :0mg/dL-1.2mg/dL BUN SERPL-MCNC13.9mg/dL Range:7m g/dL-24mg/dL AST SERPL-CCNC38{[U/L]}(High) Ra nge:9{[U/L]}-35{[U/L]} GLUCOSE SERPL-SRWH81ts/dL Range: 65mg/dL-100mg/dL ANION GAP11 Range:2-15 ALP BLD-CCNC74{[U/L]} Range:35{[ U/L]}-104{[U/L]} OSMOLALITY SerPl Toji894nbqu/kg Range:275mosm/kg-295mosm/kg LIPASE SERPL-CCNC Ordered On:29-May-2025 10:23 29-May-2025 11:04 LIPASE SERPL-CCNC52{[U/L]} Ran ge:9{[U/L]}-60{[U/L]} UA DIPSTICK PNL UR STRIP.AUTO Ordered On:29-May-2025 10:22 29-May-2025 11:31 PROT UR STRIP.AUTO-M CNCNEGATIVE [mg/dL] Range:NEGA UROBILINOGEN UR STRIP.AUTO-MCNC0.2mg/dL Range:0.2 HGB UR STRIP.AUTO-MC NCNEGATIVE [{rbc}/uL] Range:NEGA PH UR STRIP.AUTO7.0 Range:5-8 COLOR URYELLOW CLARITY URCLEAR BILIRUB UR STRIP.AUTO-MCNCNEGATIVE [mg/dL] Range:NEGA NITRITE UR QL STRIP.AUTONEGATIVE Range:NEGA LEUKOCYTE ESTERASE U R QL STRIP.AUTONEGATIVE [{wbc}/uL] Range:NEGA GLUCOSE UR STRIP.AUTO-MCNCNEGATIVE [mg/dL] Range:NEGA KETONES UR STRIP.AUTO-MCNCNEGATIVE [mg/dL] Range:NEGA COMMENTNONE SP GR UR STRIP.AUTO1.009 Range:1 .001-1.035 29-May-2025 10:22 SPECIMEN SOURCE XXXC LEAN CATCH URINE URINALYSIS COMPLETE PNL UR Ordered On:27-Apr-2025 16:39 27-Apr-2025 19:27 BACTERIA NO./AREA UR NS HPFNEGATIVE [/[HPF]] Range:NEGA CRYSTALS URNS MICRON ONE SEEN [/[LPF]] WBC NO./AREA URNS HPF0-5/[HPF] R chris:F Squamous UrnS Ql Chacho roNEGATIVE [/[LPF]] RBC NO. URNS HPF0-2/[HPF] Range: S02 CASTS NO./AREA URNS LPF0-2 HYALINE CAST/[LPF] Range:S02 27-Apr-2025 19:08 COMMENTNONE LEUKOCYTE ESTERASE U R QL STRIP.AUTONEGATIVE [{wbc}/uL] Range:NEGA KETONES UR STRIP.AUTO-MCNCNEGATIVE [mg/dL] Range:NEGA BILIRUB UR STRIP.AUTO-MCNCNEGATIVE [mg/dL] Range:NEGA GLUCOSE UR STRIP.AUTO-MCNCNEGATIVE [mg/dL] Range:NEGA PH UR STRIP.AUTO6.0 Range:5-8 PROT UR STRIP.AUTO-M CNCNEGATIVE [mg/dL] Range:NEGA CLARITY URCLEAR SP GR UR STRIP.AUTO1.029 Range:1 .001-1.035 COLOR URYELLOW NITRITE UR QL STRIP.AUTONEGATIVE Range:NEGA UROBILINOGEN UR STRIP.AUTO-MCNC0.2mg/dL Range:0.2 HGB UR STRIP.AUTO-MC NCNEGATIVE [{rbc}/uL] Range:NEGA 27-Apr-2025 17:17 SPECIMEN SOURCE XXXC LEAN CATCH URINE COMP METAB 2000 PNL SERPL Ordered On:18-Apr-2025 15:56 18-Apr-2025 18:21 ALP BLD-CCNC61{[U/L]} Range:35{ [U/L]}-104{[U/L]} PROT SERPL-MCNC7.0g/dL Range:6.3 g/dL-8g/dL ALT SERPL-CCNC22{[U/L]} Range:5{ [U/L]}-40{[U/L]} BUN SERPL-MCNC16.3mg/dL Range:7m g/dL-24mg/dL GLUCOSE SERPL-IOBU96fi/dL Range: 65mg/dL-100mg/dL BILIRUB SERPL-MCNC0.3mg/dL Range :0mg/dL-1.2mg/dL ANION GAP10 Range:2-15 CALCIUM BLD-MCNC8.4mg/dL(Low) Ra nge:8.6mg/dL-10.2mg/dL CO2 BLD-LKYP26zngg/L Range:22mmo l/L-30mmol/L BUN/CREAT SerPl21.2 CHLORIDE BLDV-XNBM992hzuw/L Rang e:98mmol/L-108mmol/L SODIUM SERPL-SFML820wjdw/L Range :136mmol/L-144mmol/L POTASSIUM SERPL-SCNC3.7mmol/L Ra nge:3.4mmol/L-4.8mmol/L GFR,OTHER(CKD-EPI)91 {[mL/min/1.7 3m2]} Range:89{[mL/min/1.73m2]}-0 OSMOLALITY SerPl Yefr254pqcl/kg Range:275mosm/kg-295mosm/kg ALBUMIN SERPL-MCNC3.9g/dL Range: 3.5g/dL-5.1g/dL CREAT SERPL-MCNC0.8mg/dL Range:0 .5mg/dL-1.2mg/dL AST SERPL-CCNC26{[U/L]} Range:9{ [U/L]}-35{[U/L]} CBC W REFLEX MANUAL DIFF BLD Ordered On:10-Mar-2025 20:28 10-Mar-2025 20:39 MCHC RBC AUTO-MCNC32.9g/dL Ran ge:31g/dL-35g/dL MCH RBC QN AUTO29.5pg Range:27pg -34pg NRBC/100 WBC BLD-RTO0.0{/100_WBCs} Range:0{/100_WBCs}-0.1{/100_ WBCs} RDW RBC AUTO41.1fL Range:36.4fL- 50fL IMM GRANULOCYTES NO. BLD0.02{[10*3/uL]} Range:0{[10*3/uL]}-0.1{[10*3 /uL]} RBC NO. BLD AUTO4.21{[10*6/uL]} Range:3.8{[10*6/uL]}-5{[10*6 /uL]} LYMPHOCYTES NO. BLD AUTO1.80{[10*3/uL]} Range:0.6{[10*3/uL]}-3.5{[10 *3/uL]} HCT VFR BLD37.7% Range:34%-45% NEUTROPHILS NO. BLD AUTO4.10{[10*3/uL]} Range:0.85{[10*3/uL]}-7.8{[1 0*3/uL]} NEUTROPHILS NFR BLD AUTO63.8% BASOPHILS NFR BLD AUTO0.6% HGB BLD-MCNC12.4g/dL Range:11.3g /dL-15g/dL DIFFERENTIAL METHOD BLDAUTOMATED MONOCYTES NO. BLD AUTO0.38{[10*3/uL]} Range:0.2{[10*3/uL]}-0.9{[10 *3/uL]} BASOPHILS NO. BLD AUTO0.04{[10*3/uL]} Range:0{[10*3/uL]}-0.1{[10*3 /uL]} EOSINOPHIL NO. BLD AUTO0.09{[10*3/uL]} Range:0{[10*3/uL]}-0.5{[10*3 /uL]} EOSINOPHIL NFR BLD AUTO1.4% IMM GRANULOCYTES BLD QL AUTO0.3% PLATELET NO. BLD OLCO309{[10*3/uL]} Range:135{[10*3/uL]}-370{[10 *3/uL]} MCV RBC AUTO89.5fL Range:83fL-98 fL PMV BLD AUTO10.7fL Range:9fL-12f L WBC NO. BLD AUTO6.4{[10*3/uL]} R chris:3{[10*3/uL]}-11.4{[10* 3/uL]} MONOCYTES NFR BLD AUTO5.9% LYMPHOCYTES NFR BLD AUTO28.0% 10-Mar-2025 20:28 DIFF TYPEAUTOMATED D IFFERENTIAL PERFORMED COMP METAB 2000 PNL SERPL Ordered On:10-Mar-2025 20:28 10-Mar-2025 21:08 BUN/CREAT SerPl14.1 CREAT SERPL-MCNC0.9mg/dL Range:0 .5mg/dL-1.2mg/dL SODIUM SERPL-TFIH183xsxb/L(Low) Range:136mmol/L-144mmol/L GLUCOSE SERPL-LTMS08gy/dL Range: 65mg/dL-100mg/dL CHLORIDE BLDV-NZHM300ydfe/L Rang e:98mmol/L-108mmol/L PROT SERPL-MCNC7.1g/dL Range:6.3 g/dL-8g/dL ALT SERPL-XKAM450{[U/L]}(High) R chris:5{[U/L]}-40{[U/L]} ANION GAP9 Range:2-15 AST SERPL-CCNC63{[U/L]}(High) Ra nge:9{[U/L]}-35{[U/L]} CALCIUM BLD-MCNC8.7mg/dL Range:8 .6mg/dL-10.2mg/dL BILIRUB SERPL-MCNC0.4mg/dL Range :0mg/dL-1.2mg/dL OSMOLALITY SerPl Vdmw822mkja/kg Range:275mosm/kg-295mosm/kg ALP BLD-CCNC83{[U/L]} Range:35{[ U/L]}-104{[U/L]} POTASSIUM SERPL-SCNC3.9mmol/L Ra nge:3.4mmol/L-4.8mmol/L ALBUMIN SERPL-MCNC3.9g/dL Range: 3.5g/dL-5.1g/dL GFR,OTHER(CKD-EPI)79 {[mL/min/1.7 3m2]}(Low) Range:89{[mL/min/1.73m2]}-0 BUN SERPL-MCNC12.9mg/dL Range:7m g/dL-24mg/dL CO2 BLD-JZQU86drop/L Range:22mmo l/L-30mmol/L MAGNESIUM BLD-MCNC Ordered On:10-Mar-2025 20:28 10-Mar-2025 21:08 MAGNESIUM BLD-MCNC1.8mg/dL Ran ge:1.6mg/dL-2.6mg/dL LIPASE SERPL-CCNC Ordered On:10-Mar-2025 20:28 10-Mar-2025 21:08 LIPASE SERPL-CCNC54{[U/L]} Ran ge:9{[U/L]}-60{[U/L]} UA DIPSTICK PNL UR STRIP.AUTO Ordered On:10-Mar-2025 19:58 10-Mar-2025 20:35 BILIRUB UR STRIP.AUTO-MCNCNEGATIVE [mg/dL] Range:NEGA KETONES UR STRIP.AUT O-MCNCTRACE [mg/dL](Abnormal) Range:NEGA COMMENTNONE NITRITE UR QL STRIP.AUTONEGATIVE Range:NEGA HGB UR STRIP.AUTO-MC NCTRACE [{rbc}/uL](Abnormal) Range:NEGA PROT UR STRIP.AUTO-M CNCNEGATIVE [mg/dL] Range:NEGA LEUKOCYTE ESTERASE U R QL STRIP.AUTONEGATIVE [{wbc}/uL] Range:NEGA SP GR UR STRIP.AUTO1.029 Range:1 .001-1.035 GLUCOSE UR STRIP.AUTO-MCNCNEGATIVE [mg/dL] Range:NEGA CLARITY URCLEAR PH UR STRIP.AUTO5.0 Range:5-8 COLOR URYELLOW UROBILINOGEN UR STRIP.AUTO-MCNC1.0mg/dL(High) Range:0.2 10-Mar-2025 19:58 SPECIMEN SOURCE XXXC LEAN CATCH URINE UA MICROSCOPIC PNL URNS Ordered On:10-Mar-2025 1 9:58 10-Mar-2025 20:38 BACTERIA NO./AREA UR NS HPFFEW [/[HPF]](Abnormal) Range:NEGA WBC NO./AREA URNS HPF0-5/[HPF] R chris:F CRYSTALS URNS MICRON ONE SEEN [/[LPF]] CASTS NO./AREA URNS LPF0-2 HYALINE CAST/[LPF] Range:S02 RBC NO. URNS HPF0-2/[HPF] Range: S02 Squamous UrnS Ql Chacho roFEW [/[LPF]] UA DIPSTICK PNL UR STRIP.AUTO Ordered On:01-Mar-2025 10:08 01-Mar-2025 10:12 SPECIMEN SOURCE XXXC LEAN CATCH URINE 01-Mar-2025 11:51 NITRITE UR QL STRIP.AUTONEGATI VE Range:NEGA BILIRUB UR STRIP.AUTO-MCNCNEGATIVE [mg/dL] Range:NEGA LEUKOCYTE ESTERASE U R QL STRIP.AUTONEGATIVE [{wbc}/uL] Range:NEGA GLUCOSE UR STRIP.AUTO-MCNCNEGATIVE [mg/dL] Range:NEGA HGB UR STRIP.AUTO-MC NCNEGATIVE [{rbc}/uL] Range:NEGA COMMENTNONE PH UR STRIP.AUTO5.0 Range:5-8 KETONES UR STRIP.AUTO-MCNCNEGATIVE [mg/dL] Range:NEGA UROBILINOGEN UR STRIP.AUTO-MCNC0.2mg/dL Range:0.2 PROT UR STRIP.AUTO-M CNCNEGATIVE [mg/dL] Range:NEGA CLARITY URCLEAR COLOR URYELLOW SP GR UR STRIP.AUTO1.026 Range:1 .001-1.035 UA DIPSTICK PNL UR STRIP.AUTO Ordered On:24-Feb-2025 4:46 24-Feb-2025 5:10 LEUKOCYTE ESTERASE U R QL STRIP.AUTONEGATIVE [{wbc}/uL] Range:NEGA COMMENTNONE PH UR STRIP.AUTO5.5 Range:5-8 GLUCOSE UR STRIP.AUTO-MCNCNEGATIVE [mg/dL] Range:NEGA CLARITY URCLEAR COLOR URYELLOW NITRITE UR QL STRIP.AUTONEGATIVE Range:NEGA BILIRUB UR STRIP.AUTO-MCNCNEGATIVE [mg/dL] Range:NEGA HGB UR STRIP.AUTO-MC NCNEGATIVE [{rbc}/uL] Range:NEGA PROT UR STRIP.AUTO-M CNCNEGATIVE [mg/dL] Range:NEGA UROBILINOGEN UR STRIP.AUTO-MCNC0.2mg/dL Range:0.2 KETONES UR STRIP.AUTO-MCNCNEGATIVE [mg/dL] Range:NEGA SP GR UR STRIP.AUTO1.024 Range:1 .001-1.035 24-Feb-2025 4:51 SPECIMEN SOURCE XXXC LEAN CATCH URINE CBC W REFLEX MANUAL DIFF BLD Ordered On:09-Feb-2025 9:37 09-Feb-2025 10:22 MCV RBC AUTO88.5fL Range:83fL- 98fL MONOCYTES NFR BLD AUTO6.9% WBC NO. BLD AUTO5.7{[10*3/uL]} R chris:3{[10*3/uL]}-11.4{[10* 3/uL]} IMM GRANULOCYTES BLD QL AUTO0.2% MONOCYTES NO. BLD AUTO0.39{[10*3/uL]} Range:0.2{[10*3/uL]}-0.9{[10 *3/uL]} DIFFERENTIAL METHOD BLDAUTOMATED MCHC RBC AUTO-MCNC33.4g/dL Range :31g/dL-35g/dL NEUTROPHILS NFR BLD AUTO68.8% LYMPHOCYTES NO. BLD AUTO1.25{[10*3/uL]} Range:0.6{[10*3/uL]}-3.5{[10 *3/uL]} EOSINOPHIL NFR BLD AUTO1.4% PLATELET NO. BLD PAEH746{[10*3/uL]} Range:135{[10*3/uL]}-370{[10 *3/uL]} BASOPHILS NO. BLD AUTO0.04{[10*3/uL]} Range:0{[10*3/uL]}-0.1{[10*3 /uL]} NRBC/100 WBC BLD-RTO0.0{/100_WBCs} Range:0{/100_WBCs}-0.1{/100_ WBCs} IMM GRANULOCYTES NO. BLD0.01{[10*3/uL]} Range:0{[10*3/uL]}-0.1{[10*3 /uL]} MCH RBC QN AUTO29.6pg Range:27pg -34pg NEUTROPHILS NO. BLD AUTO3.90{[10*3/uL]} Range:0.85{[10*3/uL]}-7.8{[1 0*3/uL]} EOSINOPHIL NO. BLD AUTO0.08{[10*3/uL]} Range:0{[10*3/uL]}-0.5{[10*3 /uL]} LYMPHOCYTES NFR BLD AUTO22.0% BASOPHILS NFR BLD AUTO0.7% HCT VFR BLD38.3% Range:34%-45% RDW RBC AUTO41.5fL Range:36.4fL- 50fL PMV BLD AUTO10.7fL Range:9fL-12f L RBC NO. BLD AUTO4.33{[10*6/uL]} Range:3.8{[10*6/uL]}-5{[10*6 /uL]} HGB BLD-MCNC12.8g/dL Range:11.3g /dL-15g/dL 09-Feb-2025 9:37 DIFF TYPEAUTOMATED D IFFERENTIAL PERFORMED COMP METAB 2000 PNL SERPL Ordered On:09-Feb-2025 9:37 09-Feb-2025 10:48 ALP BLD-CCNC65{[U/L]} Range:35 {[U/L]}-104{[U/L]} POTASSIUM SERPL-SCNC4.1mmol/L Ra nge:3.4mmol/L-4.8mmol/L GFR,OTHER(CKD-EPI)79 {[mL/min/1.7 3m2]}(Low) Range:89{[mL/min/1.73m2]}-0 BUN/CREAT SerPl13.3 PROT SERPL-MCNC6.9g/dL Range:6.3 g/dL-8g/dL ALBUMIN SERPL-MCNC3.9g/dL Range: 3.5g/dL-5.1g/dL BILIRUB SERPL-MCNC0.5mg/dL Range :0mg/dL-1.2mg/dL AST SERPL-CCNC33{[U/L]} Range:9{ [U/L]}-35{[U/L]} SODIUM SERPL-ZWHD121jfbv/L Range :136mmol/L-144mmol/L ALT SERPL-CCNC33{[U/L]} Range:5{ [U/L]}-40{[U/L]} CREAT SERPL-MCNC0.9mg/dL Range:0 .5mg/dL-1.2mg/dL CO2 BLD-MQOH71jmmq/L Range:22mmo l/L-30mmol/L ANION GAP9 Range:2-15 CHLORIDE BLDV-BRTP200eolo/L Rang e:98mmol/L-108mmol/L CALCIUM BLD-MCNC8.9mg/dL Range:8 .6mg/dL-10.2mg/dL OSMOLALITY SerPl Qhjv445wpjd/kg Range:275mosm/kg-295mosm/kg GLUCOSE SERPL-QFUQ15jc/dL Range: 65mg/dL-100mg/dL BUN SERPL-MCNC11.8mg/dL Range:7m g/dL-24mg/dL HGB A1C MFR BLD Ordered On:09-Feb-2025 9:37 09-Feb-2025 10:35 EST. AVERAGE GLUCOSE BLD GHB EST-IMMS4ucjy/L EST. AVERAGE GLUCOSE BLD GHB EST-TBBT515qw/dL HGB A1C MFR BLD5.4% Range:0-5.7% Comments:Normal: <5.7%Pre-Diabetes: 5.7-6.4%Diabetes: 6.5% or above UA DIPSTICK PNL UR STRIP.AUTO Ordered On:08-Feb-2025 14:52 08-Feb-2025 16:13 SP GR UR STRIP.AUTO1.032 Range :1.001-1.035 COLOR URYELLOW UROBILINOGEN UR STRIP.AUTO-MCNC1.0mg/dL(High) Range:0.2 COMMENTNONE CLARITY URCLOUDY BILIRUB UR STRIP.AUTO-MCNCNEGATIVE [mg/dL] Range:NEGA PROT UR STRIP.AUTO-M CNCNEGATIVE [mg/dL] Range:NEGA KETONES UR STRIP.AUT O-MCNCTRACE [mg/dL](Abnormal) Range:NEGA NITRITE UR QL STRIP.AUTONEGATIVE Range:NEGA LEUKOCYTE ESTERASE U R QL STRIP.AUTONEGATIVE [{wbc}/uL] Range:NEGA GLUCOSE UR STRIP.AUTO-MCNCNEGATIVE [mg/dL] Range:NEGA PH UR STRIP.AUTO5.0 Range:5-8 HGB UR STRIP.AUTO-MC NCNEGATIVE [{rbc}/uL] Range:NEGA 08-Feb-2025 14:43 SPECIMEN SOURCE XXXC LEAN CATCH URINE Estradiol. Ordered On:08-Feb-2025 14:52 10-Feb-2025 11:11 ESTRADIOL SERPL-OQJT539.0 Comm ents:Unit: pg/mLAdult Female RangeFollicular phase 12.5 - 166.0Ovulation phase 85.8 - 498.0Luteal phase 43.8 - 211.0Postmenopausal <6.0 - 54.0Ezboewusl3uq trimester 215.0 - >4300.0Roche ECLIA methodologyPerformed At: [facility] [place], [place] [id number] Vincent PhD Ph:[phone] Follicle Stimulating Hormone (FSH), Serum Ordered On:08-Feb-2025 14:52 10-Feb-2025 7:12 FSH SERPL-ACNC4.5 Comments:Unit : mIU/mLAdult Female RangeFollicular phase 3.5 - 12.5Ovulation phase 4.7 - 21.5Luteal phase 1.7 - 7.7Postmenopausal 25.8 - 134.8Performed At: [facility] [place], [place] [id number] Vincent PhD Ph:[phone] Progesterone Ordered On:08-Feb-2025 14:52 10-Feb-2025 7:12 PROGEST SERPL-MCNC0.2 Comments: Unit: ng/mLFollicular phase 0.1 - 0.9Luteal phase 1.8 - 23.9Ovulation phase 0.1 - 12.0First trimester 11.0 - 44.3Second trimester 25.4 - 83.3Third trimester 58.7 - 214.0Postmenopausal 0.0 - 0.1Performed At: [facility] [place], [place] [id number] Vincent PhD Ph:[phone] Multiplex Vaginal Panel Ordered On:31-Jan-2025 1 8:58 31-Jan-2025 21:40 T vaginalis DNA Vag Ql RAIN+probeNEGATIVE Range:NEGA Bacterial vaginosis Vag-ImpNEGATIVE Range:NEGA Comments:The Xpert Xpress MVP test targets three anaerobic microorganisms that are associated withBV. Other organisms that are not detected by the Xpert Xpress MVP test have also beenreported to be associated with BV. Nancy DNA Vag Ql RAIN+probeNEGATIVE Range:NEGA Comments:(Nancy spp. includes C. albicans, C. tropicalis, C. parapsilosis, C. dubliniensis,without differentiation). Nancy DNA Vag Ql RAIN+probeNEGATIVE Range:NEGA Comments:(Nancy glabrata/Nancy krusei species without differentiation). 31-Jan-2025 18:58 LIMITATIONS:The Xper t Xpress MVP test has been validated with vaginal swabs collected with the [employer] Specimen Collection Kit.The Xpert Xpress MVP test performance has been evaluated in patients 14 years of age andolder (including women).The analyte target may persist in vivo, independent of pathogen viability. Detection ofthe analyte target does not imply that the corresponding pathogen is infectious, or isthe causative agent of the clinical symptoms.A negative test result does not exclude the possibility of infection because test resultsmay be affected by improper specimen collection, concurrent antibiotic therapy, or thenumber of organisms in the specimen that may be below the sensitivity of the tests.The Xpert Xpress MVP test cannot be used to assess therapeutic success or failure sincetarget nucleic acids may persist following antimicrobial therapy. UA DIPSTICK PNL UR STRIP.AUTO Ordered On:27-Jan-2025 1:40 27-Jan-2025 2:01 HGB UR STRIP.AUTO-MC NCTRACE [{rbc}/uL](Abnormal) Range:NEGA PH UR STRIP.AUTO5.5 Range:5-8 PROT UR STRIP.AUTO-M CNCNEGATIVE [mg/dL] Range:NEGA COLOR URYELLOW GLUCOSE UR STRIP.AUTO-MCNCNEGATIVE [mg/dL] Range:NEGA COMMENTNONE UROBILINOGEN UR STRIP.AUTO-MCNC1.0mg/dL(High) Range:0.2 CLARITY URCLEAR LEUKOCYTE ESTERASE U R QL STRIP.AUTONEGATIVE [{wbc}/uL] Range:NEGA NITRITE UR QL STRIP.AUTONEGATIVE Range:NEGA KETONES UR STRIP.AUTO-MCNCNEGATIVE [mg/dL] Range:NEGA SP GR UR STRIP.AUTO1.029 Range:1 .001-1.035 BILIRUB UR STRIP.AUTO-MCNCNEGATIVE [mg/dL] Range:NEGA 27-Jan-2025 1:47 SPECIMEN SOURCE XXXC LEAN CATCH URINE UA MICROSCOPIC PNL URNS Ordered On:27-Jan-2025 1 :40 27-Jan-2025 2:01 WBC NO./AREA URNS HPF0-5/[HPF] Range:F CASTS NO./AREA URNS LPF0-2 HYALINE CAST/[LPF] Range:S02 CRYSTALS URNS MICRON ONE SEEN [/[LPF]] BACTERIA NO./AREA UR NS HPFFEW [/[HPF]](Abnormal) Range:NEGA RBC NO. URNS HPF0-2/[HPF] Range: S02 Squamous UrnS Ql Chacho roFEW [/[LPF]] UA DIPSTICK PNL UR STRIP.AUTO Ordered On:08-Jan-2025 2:00 08-Jan-2025 2:27 CLARITY URCLOUDY PH UR STRIP.AUTO5.5 Range:5-8 SP GR UR STRIP.AUTO1.032 Range:1 .001-1.035 LEUKOCYTE ESTERASE U R QL STRIP.AUTONEGATIVE [{wbc}/uL] Range:NEGA PROT UR STRIP.AUTO-M CNCNEGATIVE [mg/dL] Range:NEGA COMMENTNONE GLUCOSE UR STRIP.AUTO-MCNCNEGATIVE [mg/dL] Range:NEGA NITRITE UR QL STRIP.AUTONEGATIVE Range:NEGA KETONES UR STRIP.AUTO-MCNCNEGATIVE [mg/dL] Range:NEGA UROBILINOGEN UR STRIP.AUTO-MCNC1.0mg/dL(High) Range:0.2 HGB UR STRIP.AUTO-MC NCNEGATIVE [{rbc}/uL] Range:NEGA BILIRUB UR STRIP.AUTO-MCNCNEGATIVE [mg/dL] Range:NEGA COLOR URYELLOW 08-Jan-2025 2:20 SPECIMEN SOURCE XXXC LEAN CATCH URINE UA DIPSTICK PNL UR STRIP.AUTO Ordered On:24-Dec-2024 23:28 25-Dec-2024 0:02 NITRITE UR QL STRIP.AUTONEGATIVE Range:NEGA CLARITY URCLEAR COLOR URYELLOW PROT UR STRIP.AUTO-M CNCNEGATIVE [mg/dL] Range:NEGA KETONES UR STRIP.AUTO-MCNCNEGATIVE [mg/dL] Range:NEGA PH UR STRIP.AUTO6.0 Range:5-8 GLUCOSE UR STRIP.AUTO-MCNCNEGATIVE [mg/dL] Range:NEGA SP GR UR STRIP.AUTO1.020 Range:1 .001-1.035 COMMENTNONE BILIRUB UR STRIP.AUTO-MCNCNEGATIVE [mg/dL] Range:NEGA HGB UR STRIP.AUTO-MC NCNEGATIVE [{rbc}/uL] Range:NEGA UROBILINOGEN UR STRIP.AUTO-MCNC1.0mg/dL(High) Range:0.2 LEUKOCYTE ESTERASE U R QL STRIP.AUTONEGATIVE [{wbc}/uL] Range:NEGA 24-Dec-2024 23:32 SPECIMEN SOURCE XXXC LEAN CATCH URINE UA DIPSTICK PNL UR STRIP.AUTO Ordered On:08-Dec-2024 11:51 08-Dec-2024 12:23 GLUCOSE UR STRIP.AUTO-MCNCNEGATIVE [mg/dL] Range:NEGA PH UR STRIP.AUTO5.0 Range:5-8 CLARITY URCLOUDY COLOR URYELLOW COMMENTNONE KETONES UR STRIP.AUTO-MCNCNEGATIVE [mg/dL] Range:NEGA BILIRUB UR STRIP.AUTO-MCNCNEGATIVE [mg/dL] Range:NEGA NITRITE UR QL STRIP.AUTONEGATIVE Range:NEGA SP GR UR STRIP.AUTO1.030 Range:1 .001-1.035 HGB UR STRIP.AUTO-MC NCTRACE [{rbc}/uL](Abnormal) Range:NEGA UROBILINOGEN UR STRIP.AUTO-MCNC0.2mg/dL Range:0.2 PROT UR STRIP.AUTO-M CNCNEGATIVE [mg/dL] Range:NEGA LEUKOCYTE ESTERASE U R QL STRIP.AUTONEGATIVE [{wbc}/uL] Range:NEGA 08-Dec-2024 12:03 SPECIMEN SOURCE XXXC LEAN CATCH URINE UA MICROSCOPIC PNL URNS Ordered On:08-Dec-2024 1 1:51 08-Dec-2024 12:23 CASTS NO./AREA URNS LPF0-2 HYALINE CAST/[LPF] Range:S02 BACTERIA NO./AREA UR NS HPFMODERATE [/[HPF]](Abnormal) Range:NEGA RBC NO. URNS HPF0-2/[HPF] Range: S02 WBC NO./AREA URNS HPF0-5/[HPF] R chris:F Squamous UrnS Ql Chacho roFEW [/[LPF]] CRYSTALS URNS MICRON ONE SEEN [/[LPF]] Multiplex Vaginal Panel Ordered On:29-Nov-2024 1 5:37 29-Nov-2024 17:09 T vaginalis DNA Vag Ql RAIN+probeNEGATIVE Range:NEGA Nancy DNA Vag Ql RAIN+probeNEGATIVE Range:NEGA Comments:(Nancy glabrata/Nancy krusei species without differentiation). Nancy DNA Vag Ql RAIN+probeNEGATIVE Range:NEGA Comments:(Nancy spp. includes C. albicans, C. tropicalis, C. parapsilosis, C. dubliniensis,without differentiation). Bacterial vaginosis Vag-ImpNEGATIVE Range:NEGA Comments:The Xpert Xpress MVP test targets three anaerobic microorganisms that are associated withBV. Other organisms that are not detected by the Xpert Xpress MVP test have also beenreported to be associated with BV. 29-Nov-2024 15:37 LIMITATIONS:The Xper t Xpress MVP test has been validated with vaginal swabs collected with the [employer] Specimen Collection Kit.The Xpert Xpress MVP test performance has been evaluated in patients 14 years of age andolder (including women).The analyte target may persist in vivo, independent of pathogen viability. Detection ofthe analyte target does not imply that the corresponding pathogen is infectious, or isthe causative agent of the clinical symptoms.A negative test result does not exclude the possibility of infection because test resultsmay be affected by improper specimen collection, concurrent antibiotic therapy, or thenumber of organisms in the specimen that may be below the sensitivity of the tests.The Xpert Xpress MVP test cannot be used to assess therapeutic success or failure sincetarget nucleic acids may persist following antimicrobial therapy. C trach+GC DNA XXX Ql PCR Ordered On:29-Nov-2024 15:37 29-Nov-2024 17:41 N gonorrhea DNA Spec Ql RAIN+probeNEGATIVE Range:NEGA Comments:NG target DNA sequences are not detected.Testing is performed on the GeneXpert Infinity System. C trach DNA Spec Ql RAIN+probeNEGATIVE Range:NEGA Comments:CT target DNA sequence is not detected.Testing is performed on the Gene[employer] Infinity System. 29-Nov-2024 15:37 SPECIMEN SOURCE XXXV AGINAL SPECIMEN LIMITATIONS:The Xper t CT/NG Assay should not be used for the evaluation of suspected sexual abuse orfor other medico-legal indications.Xpert CT/NG Assay performance has not been evaluated in patients less than 14 years ofage, or in patients with a history of hysterectomy.The Xpert CT/NG Assay has not been evaluated with patients who are currently beingtreated with antimicrobial agents active against CT or NG.Collection and testing of urine specimens with Xpert CT/NG PCR assay is not intended toreplace cervical exam and endocervical sampling for diagnosis of urogenital infection. UA DIPSTICK PNL UR STRIP.AUTO Ordered On:29-Nov-2024 15:37 29-Nov-2024 16:30 KETONES UR STRIP.AUTO-MCNCNEGATIVE [mg/dL] Range:NEGA LEUKOCYTE ESTERASE U R QL STRIP.AUTONEGATIVE [{wbc}/uL] Range:NEGA BILIRUB UR STRIP.AUTO-MCNCNEGATIVE [mg/dL] Range:NEGA UROBILINOGEN UR STRIP.AUTO-MCNC0.2mg/dL Range:0.2 GLUCOSE UR STRIP.AUTO-MCNCNEGATIVE [mg/dL] Range:NEGA PH UR STRIP.AUTO5.0 Range:5-8 NITRITE UR QL STRIP.AUTONEGATIVE Range:NEGA COLOR URYELLOW HGB UR STRIP.AUTO-MC NCTRACE [{rbc}/uL](Abnormal) Range:NEGA COMMENTNONE CLARITY URCLOUDY SP GR UR STRIP.AUTO1.024 Range:1 .001-1.035 PROT UR STRIP.AUTO-M CNCNEGATIVE [mg/dL] Range:NEGA 29-Nov-2024 15:37 SPECIMEN SOURCE XXXC LEAN CATCH URINE UA MICROSCOPIC PNL URNS Ordered On:29-Nov-2024 1 5:37 29-Nov-2024 16:59 CRYSTALS URNS MICRON ONE SEEN [/[LPF]] WBC NO./AREA URNS HP F0-5 URINE MICROSCOPIC RESULTS CONFIRMED BY MANUAL REVIEW./[HPF] Range:F RBC NO. URNS HPF0-2/[HPF] Range: S02 BACTERIA NO./AREA UR NS HPFMODERATE [/[HPF]](Abnormal) Range:NEGA Squamous UrnS Ql [place]acho roMODERATE [/[LPF]](Abnormal) CASTS NO./AREA URNS LPF0-2 HYALINE CAST/[LPF] Range:S02 URINALYSIS COMPLETE PNL UR Ordered On:26-Nov-2024 11:18 26-Nov-2024 14:33 BACTERIA NO./AREA UR NS HPFMODERATE [/[HPF]](Abnormal) Range:NEGA CASTS NO./AREA URNS LPF0-2 HYALINE CAST/[LPF] Range:S02 CRYSTALS URNS MICRON ONE SEEN [/[LPF]] RBC NO. URNS HPF0-2/[HPF] Range: S02 Squamous UrnS Ql Chacho roMODERATE [/[LPF]](Abnormal) WBC NO./AREA URNS HPF0-5/[HPF] R chris:F 26-Nov-2024 14:32 PROT UR STRIP.AUTO-M CNCNEGATIVE [mg/dL] Range:NEGA KETONES UR STRIP.AUTO-MCNCNEGATIVE [mg/dL] Range:NEGA SP GR UR STRIP.AUTO1.023 Range:1 .001-1.035 BILIRUB UR STRIP.AUTO-MCNCNEGATIVE [mg/dL] Range:NEGA CLARITY URCLOUDY PH UR STRIP.AUTO5.0 Range:5-8 UROBILINOGEN UR STRIP.AUTO-MCNC0.2mg/dL Range:0.2 GLUCOSE UR STRIP.AUTO-MCNCNEGATIVE [mg/dL] Range:NEGA LEUKOCYTE ESTERASE U R QL STRIP.AUTONEGATIVE [{wbc}/uL] Range:NEGA COMMENTNONE COLOR URYELLOW NITRITE UR QL STRIP.AUTONEGATIVE Range:NEGA HGB UR STRIP.AUTO-MC NCTRACE [{rbc}/uL](Abnormal) Range:NEGA 26-Nov-2024 12:08 SPECIMEN SOURCE XXXC LEAN CATCH URINE Resp path DNA+RNA Pnl Nph RAIN+non-probe Ordered On:20-Nov-2024 0:27 20-Nov-2024 1:28 Coronavirus 229ENOT DETECTED Ran ge:TNDET Influenza BNOT DETECTED Range:TN DET B pert.PT prom reg N ph Ql RAIN+non-probeNOT DETECTED Range:TNDET Influenza ANOT DETECTED Range:TN DET AdenovirusNOT DETECTED Range:TND ET Chlamydophila pneumo niaeNOT DETECTED Range:TNDET Resp. Syncytial Viru sNOT DETECTED Range:TNDET Coronavirus [id number] DETECTED Ran ge:TNDET SARS coronavirus 2 R NANOT DETECTEDThe 2018 Novel coronavirus (SARS-CoV-2) target nucleic acids are not detected.[This result will be reported to [facility].] Range:TNDET Coronavirus [id number] DETECTED Ran ge:TNDET Bordetella parapertu ssisNOT DETECTED Range:TNDET Parainfluenza 3NOT DETECTED Rang e:TNDET Parainfluenza 2NOT DETECTED Rang e:TNDET Human Rhino/enterovi rusNOT DETECTED Range:TNDET Human Metapneumoviru sNOT DETECTED Range:TNDET Parainfluenza 4NOT DETECTED Rang e:TNDET Mycoplasma pneumonia eNOT DETECTED Range:TNDET Coronavirus [id number] DETECTED Ran ge:TNDET Parainfluenza 1NOT DETECTED Rang e:TNDET 20-Nov-2024 0:27 LIMITATIONS:The perf ormance of this test has not been established for patients without signs andsymptoms of respiratory infection. Results from this test must be correlated with theclinical history, epidemiological data, and other data available to the clinicianevaluating the patient. Viral and bacterial nucleic acids may persist in vivo independentof organism viability.Detection of organism target(s) does not imply that the corresponding organisms areinfectious or are the causative agents for clinical symptoms. The detection of viral andbacterial nucleic acid is dependent upon proper specimen collection, handling,transportation, storage and preparation.Failure to observe proper procedures in any one of these steps can lead to incorrectresults. There is a risk of false positive or false negative values resulting fromimproperly collected, transported or handled specimens. UA DIPSTICK PNL UR STRIP.AUTO Ordered On:19-Nov-2024 1:28 19-Nov-2024 1:38 HGB UR STRIP.AUTO-MC NCTRACE [{rbc}/uL](Abnormal) Range:NEGA UROBILINOGEN UR STRIP.AUTO-MCNC1.0mg/dL(High) Range:0.2 GLUCOSE UR STRIP.AUTO-MCNCNEGATIVE [mg/dL] Range:NEGA NITRITE UR QL STRIP.AUTONEGATIVE Range:NEGA PH UR STRIP.AUTO5.5 Range:5-8 LEUKOCYTE ESTERASE U R QL STRIP.AUTONEGATIVE [{wbc}/uL] Range:NEGA BILIRUB UR STRIP.AUTO-MCNCNEGATIVE [mg/dL] Range:NEGA PROT UR STRIP.AUTO-M CNCNEGATIVE [mg/dL] Range:NEGA CLARITY URCLEAR COLOR URYELLOW KETONES UR STRIP.AUTO-MCNCNEGATIVE [mg/dL] Range:NEGA SP GR UR STRIP.AUTO1.028 Range:1 .001-1.035 COMMENTNONE 19-Nov-2024 1:28 SPECIMEN SOURCE XXXC LEAN CATCH URINE UA MICROSCOPIC PNL URNS Ordered On:19-Nov-2024 1: 28 19-Nov-2024 1:41 BACTERIA NO./AREA UR NS HPFFEW [/[HPF]](Abnormal) Range:NEGA CRYSTALS URNS MICRON ONE SEEN [/[LPF]] WBC NO./AREA URNS HPF0-5/[HPF] R chris:F RBC NO. URNS HPF0-2/[HPF] Range: S02 Squamous UrnS Ql [place] roFEW [/[LPF]] CASTS NO./AREA URNS LPF0-2 HYALINE CAST/[LPF] Range:S02 UA DIPSTICK PNL UR STRIP.AUTO Ordered On:10-Nov-2024 15:05 10-Nov-2024 15:37 CLARITY URCLEAR NITRITE UR QL STRIP.AUTONEGATIVE Range:NEGA KETONES UR STRIP.AUTO-MCNCNEGATIVE [mg/dL] Range:NEGA LEUKOCYTE ESTERASE U R QL STRIP.AUTONEGATIVE [{wbc}/uL] Range:NEGA UROBILINOGEN UR STRIP.AUTO-MCNC0.2mg/dL Range:0.2 GLUCOSE UR STRIP.AUTO-MCNCNEGATIVE [mg/dL] Range:NEGA BILIRUB UR STRIP.AUTO-MCNCNEGATIVE [mg/dL] Range:NEGA HGB UR STRIP.AUTO-MC NCNEGATIVE [{rbc}/uL] Range:NEGA COLOR URYELLOW COMMENTNONE SP GR UR STRIP.AUTO1.026 Range:1 .001-1.035 PROT UR STRIP.AUTO-M CNCNEGATIVE [mg/dL] Range:NEGA PH UR STRIP.AUTO5.0 Range:5-8 10-Nov-2024 15:08 SPECIMEN SOURCE XXXC LEAN CATCH URINE C trach+GC DNA XXX Ql PCR Ordered On:10-Nov-2024 15:05 10-Nov-2024 16:56 C trach DNA Spec Ql RAIN+probeNEGATIVE Range:NEGA Comments:CT target DNA sequence is not detected.Testing is performed on the GeneXpert Infinity System. N gonorrhea DNA Spec Ql RAIN+probeNEGATIVE Range:NEGA Comments:NG target DNA sequences are not detected.Testing is performed on the [employer] System. 10-Nov-2024 15:12 LIMITATIONS:The Xper t CT/NG Assay should not be used for the evaluation of suspected sexual abuse orfor other medico-legal indications.Xpert CT/NG Assay performance has not been evaluated in patients less than 14 years ofage, or in patients with a history of hysterectomy.The Xpert CT/NG Assay has not been evaluated with patients who are currently beingtreated with antimicrobial agents active against CT or NG.Collection and testing of urine specimens with Xpert CT/NG PCR assay is not intended toreplace cervical exam and endocervical sampling for diagnosis of urogenital infection. SPECIMEN SOURCE XXXU RINE FROM [employer] COLLECTION KIT UA DIPSTICK PNL UR STRIP.AUTO Ordered On:05-Nov-2024 23:57 06-Nov-2024 0:12 KETONES UR STRIP.AUTO-MCNCNEGATIVE [mg/dL] Range:NEGA BILIRUB UR STRIP.AUTO-MCNCNEGATIVE [mg/dL] Range:NEGA COMMENTNONE NITRITE UR QL STRIP.AUTONEGATIVE Range:NEGA LEUKOCYTE ESTERASE U R QL STRIP.AUTONEGATIVE [{wbc}/uL] Range:NEGA GLUCOSE UR STRIP.AUTO-MCNCNEGATIVE [mg/dL] Range:NEGA HGB UR STRIP.AUTO-MC NCNEGATIVE [{rbc}/uL] Range:NEGA COLOR URYELLOW CLARITY URCLOUDY PH UR STRIP.AUTO5.0 Range:5-8 SP GR UR STRIP.AUTO1.025 Range:1 .001-1.035 PROT UR STRIP.AUTO-M CNCNEGATIVE [mg/dL] Range:NEGA UROBILINOGEN UR STRIP.AUTO-MCNC0.2mg/dL Range:0.2 05-Nov-2024 23:57 SPECIMEN SOURCE XXXC LEAN CATCH URINE Multiplex Vaginal Panel Ordered On:29-Oct-2024 1 2:10 LIMITATIONS:The Xper t Xpress MVP test has been validated with vaginal swabs collected with the [employer] Specimen Collection Kit.The Xpert Xpress MVP test performance has been evaluated in patients 14 years of age andolder (including women).The analyte target may persist in vivo, independent of pathogen viability. Detection ofthe analyte target does not imply that the corresponding pathogen is infectious, or isthe causative agent of the clinical symptoms.A negative test result does not exclude the possibility of infection because test resultsmay be affected by concurrent antibiotic therapy or the number of organisms in thespecimen that may be below the sensitivity of the tests.The Xpert Xpress MVP test cannot be used to assess therapeutic success or failure sincetarget nucleic acids may persist following antimicrobial therapy. 29-Oct-2024 13:24 Nancy DNA Vag Ql RAIN+probeNEGATIVE Range:NEGA Comments:(Nancy spp. includes C. albicans, C. tropicalis, C. parapsilosis, C. dubliniensis,without differentiation). T vaginalis DNA Vag Ql RAIN+probeNEGATIVE Range:NEGA Bacterial vaginosis Vag-ImpNEGATIVE Range:NEGA Comments:The Xpert Xpress MVP test targets three anaerobic microorganisms that are associated withBV. Other organisms that are not detected by the Xpert Xpress MVP test have also beenreported to be associated with BV. Nancy DNA Vag Ql RAIN+probeNEGATIVE Range:NEGA Comments:(Nancy glabrata/Nancy krusei species without differentiation). UA DIPSTICK PNL UR STRIP.AUTO Ordered On:29-Oct-2024 11:46 29-Oct-2024 12:55 BILIRUB UR STRIP.AUTO-MCNCNEGATIVE [mg/dL] Range:NEGA UROBILINOGEN UR STRIP.AUTO-MCNC0.2mg/dL Range:0.2 HGB UR STRIP.AUTO-MC NCNEGATIVE [{rbc}/uL] Range:NEGA KETONES UR STRIP.AUTO-MCNCNEGATIVE [mg/dL] Range:NEGA CLARITY URCLEAR SP GR UR STRIP.AUTO1.024 Range:1 .001-1.035 PH UR STRIP.AUTO5.0 Range:5-8 NITRITE UR QL STRIP.AUTONEGATIVE Range:NEGA LEUKOCYTE ESTERASE U R QL STRIP.AUTONEGATIVE [{wbc}/uL] Range:NEGA GLUCOSE UR STRIP.AUTO-MCNCNEGATIVE [mg/dL] Range:NEGA COMMENTNONE COLOR URYELLOW PROT UR STRIP.AUTO-M CNCNEGATIVE [mg/dL] Range:NEGA 29-Oct-2024 11:46 SPECIMEN SOURCE XXXC LEAN CATCH URINE UA DIPSTICK PNL UR STRIP.AUTO Ordered On:27-Oct-2024 10:44 27-Oct-2024 11:16 COMMENTNONE NITRITE UR QL STRIP.AUTONEGATIVE Range:NEGA PROT UR STRIP.AUTO-M CNCNEGATIVE [mg/dL] Range:NEGA LEUKOCYTE ESTERASE U R QL STRIP.AUTONEGATIVE [{wbc}/uL] Range:NEGA GLUCOSE UR STRIP.AUTO-MCNCNEGATIVE [mg/dL] Range:NEGA KETONES UR STRIP.AUTO-MCNCNEGATIVE [mg/dL] Range:NEGA COLOR URYELLOW UROBILINOGEN UR STRIP.AUTO-MCNC0.2mg/dL Range:0.2 BILIRUB UR STRIP.AUTO-MCNCNEGATIVE [mg/dL] Range:NEGA CLARITY URCLEAR SP GR UR STRIP.AUTO1.023 Range:1 .001-1.035 PH UR STRIP.AUTO5.0 Range:5-8 HGB UR STRIP.AUTO-MC NCNEGATIVE [{rbc}/uL] Range:NEGA 27-Oct-2024 10:36 SPECIMEN SOURCE XXXC LEAN CATCH URINE GLUCOSE BLDC GLUCOMTR-MCNC Ordered On:22-Oct-2024 7:37 22-Oct-2024 7:43 GLUCOSE BLDC GLUCOMTR-GCXL86ks/dL Range:65mg/dL-100mg/dL UA DIPSTICK PNL UR STRIP.AUTO Ordered On:18-Oct-2024 15:37 18-Oct-2024 16:43 SPECIMEN SOURCE XXXC LEAN CATCH URINE 18-Oct-2024 17:31 KETONES UR STRIP.AUTO-MCNCNEGATIVE [mg/dL] Range:NEGA NITRITE UR QL STRIP.AUTONEGATIVE Range:NEGA HGB UR STRIP.AUTO-MC NCNEGATIVE [{rbc}/uL] Range:NEGA COMMENTNONE PROT UR STRIP.AUTO-M CNCNEGATIVE [mg/dL] Range:NEGA SP GR UR STRIP.AUTO1.025 Range:1 .001-1.035 GLUCOSE UR STRIP.AUTO-MCNCNEGATIVE [mg/dL] Range:NEGA LEUKOCYTE ESTERASE U R QL STRIP.AUTONEGATIVE [{wbc}/uL] Range:NEGA PH UR STRIP.AUTO5.5 Range:5-8 BILIRUB UR STRIP.AUTO-MCNCNEGATIVE [mg/dL] Range:NEGA CLARITY URCLOUDY COLOR URYELLOW UROBILINOGEN UR STRIP.AUTO-MCNC1.0mg/dL(High) Range:0.2 Fluid for Cytology Ordered On:24-Sep-2024 14:38 24-Sep-2024 16:40 CYTOLOGY FLUID RESUL TFLUID SENT TO CYTOLOGY 24-Sep-2024 16:41 SPECIMEN SOURCE FLDurine URINALYSIS COMPLETE PNL UR Ordered On:24-Sep-2024 14:38 24-Sep-2024 18:20 BACTERIA NO./AREA UR NS HPFFEW [/[HPF]](Abnormal) Range:NEGA UROBILINOGEN UR STRIP.AUTO-MCNC0.2mg/dL Range:0.2 LEUKOCYTE ESTERASE U R QL STRIP.AUTONEGATIVE [{wbc}/uL] Range:NEGA NITRITE UR QL STRIP.AUTONEGATIVE Range:NEGA BILIRUB UR STRIP.AUTO-MCNCNEGATIVE [mg/dL] Range:NEGA Squamous UrnS Ql Chacho roFEW [/[LPF]] WBC NO./AREA URNS HPF0-5/[HPF] R chris:F GLUCOSE UR STRIP.AUTO-MCNCNEGATIVE [mg/dL] Range:NEGA PROT UR STRIP.AUTO-M CNCNEGATIVE [mg/dL] Range:NEGA HGB UR STRIP.AUTO-MC NCNEGATIVE [{rbc}/uL] Range:NEGA RBC NO. URNS HPF0-2/[HPF] Range: S02 SP GR UR STRIP.AUTO1.027 Range:1 .001-1.035 KETONES UR STRIP.AUTO-MCNCNEGATIVE [mg/dL] Range:NEGA PH UR STRIP.AUTO5.5 Range:5-8 COLOR URYELLOW CLARITY URCLOUDY COMMENTNONE CASTS NO./AREA URNS LPF0-2 HYALINE CAST/[LPF] Range:S02 CRYSTALS URNS MICRON ONE SEEN [/[LPF]] 24-Sep-2024 16:31 SPECIMEN SOURCE XXXC LEAN CATCH URINE UA DIPSTICK PNL UR STRIP.AUTO Ordered On:23-Sep-2024 10:06 23-Sep-2024 10:27 PROT UR STRIP.AUTO-M CNCNEGATIVE [mg/dL] Range:NEGA BILIRUB UR STRIP.AUTO-MCNCNEGATIVE [mg/dL] Range:NEGA UROBILINOGEN UR STRIP.AUTO-MCNC0.2mg/dL Range:0.2 NITRITE UR QL STRIP.AUTONEGATIVE Range:NEGA GLUCOSE UR STRIP.AUTO-MCNCNEGATIVE [mg/dL] Range:NEGA PH UR STRIP.AUTO5.5 Range:5-8 HGB UR STRIP.AUTO-MC NCNEGATIVE [{rbc}/uL] Range:NEGA COLOR URYELLOW SP GR UR STRIP.AUTO1.015 Range:1 .001-1.035 KETONES UR STRIP.AUTO-MCNCNEGATIVE [mg/dL] Range:NEGA LEUKOCYTE ESTERASE U R QL STRIP.AUTONEGATIVE [{wbc}/uL] Range:NEGA CLARITY URCLEAR COMMENTNONE 23-Sep-2024 10:06 SPECIMEN SOURCE XXXC LEAN CATCH URINE CBC W REFLEX MANUAL DIFF BLD Ordered On:23-Sep-2024 8:33 23-Sep-2024 8:43 BASOPHILS NFR BLD AUTO0.3% PMV BLD AUTO9.9fL Range:9fL-12fL EOSINOPHIL NO. BLD AUTO0.06{[10*3/uL]} Range:0{[10*3/uL]}-0.5{[10*3 /uL]} NRBC/100 WBC BLD-RTO0.0{/100_WBCs} Range:0{/100_WBCs}-0.1{/100_ WBCs} NEUTROPHILS NO. BLD AUTO2.26{[10*3/uL]} Range:0.85{[10*3/uL]}-7.8{[1 0*3/uL]} HGB BLD-MCNC12.8g/dL Range:11.3g /dL-15g/dL NEUTROPHILS NFR BLD AUTO62.3% LYMPHOCYTES NFR BLD AUTO28.2% MONOCYTES NFR BLD AUTO7.2% HCT VFR BLD38.1% Range:34%-45% IMM GRANULOCYTES BLD QL AUTO0.3% EOSINOPHIL NFR BLD AUTO1.7% WBC NO. BLD AUTO3.6{[10*3/uL]} R chris:3{[10*3/uL]}-11.4{[10* 3/uL]} MONOCYTES NO. BLD AUTO0.26{[10*3/uL]} Range:0.2{[10*3/uL]}-0.9{[10 *3/uL]} IMM GRANULOCYTES NO. BLD0.01{[10*3/uL]} Range:0{[10*3/uL]}-0.1{[10*3 /uL]} RBC NO. BLD AUTO4.23{[10*6/uL]} Range:3.8{[10*6/uL]}-5{[10*6 /uL]} MCH RBC QN AUTO30.3pg Range:27pg -34pg RDW RBC AUTO41.2fL Range:36.4fL- 50fL PLATELET NO. BLD [id number]{[10*3/uL]} Range:135{[10*3/uL]}-370{[10 *3/uL]} DIFFERENTIAL METHOD BLDAUTOMATED LYMPHOCYTES NO. BLD AUTO1.02{[10*3/uL]} Range:0.6{[10*3/uL]}-3.5{[10 *3/uL]} BASOPHILS NO. BLD AUTO0.01{[10*3/uL]} Range:0{[10*3/uL]}-0.1{[10*3 /uL]} MCHC RBC AUTO-MCNC33.6g/dL Range :31g/dL-35g/dL MCV RBC AUTO90.1fL Range:83fL-98 fL 23-Sep-2024 8:33 DIFF TYPEAUTOMATED D IFFERENTIAL PERFORMED COMP METAB 2000 PNL SERPL Ordered On:23-Sep-2024 8:33 23-Sep-2024 9:22 PROT SERPL-MCNC7.0g/dL Range:6.3 g/dL-8g/dL ALP BLD-CCNC63{[U/L]} Range:35{[ U/L]}-104{[U/L]} ALT SERPL-CCNC27{[U/L]} Range:5{ [U/L]}-40{[U/L]} ANION GAP8 Range:2-15 CHLORIDE BLDV-JRTV217aosp/L Rang e:98mmol/L-108mmol/L BUN/CREAT SerPl16.5 CO2 BLD-BYCA41fvpq/L Range:22mmo l/L-30mmol/L GLUCOSE SERPL-ZPKR80rv/dL Range: 65mg/dL-100mg/dL SODIUM SERPL-SWMR457ckgw/L Range :136mmol/L-144mmol/L GFR,OTHER(CKD-EPI)79 {[mL/min/1.7 3m2]}(Low) Range:89{[mL/min/1.73m2]}-0 POTASSIUM SERPL-SCNC3.9mmol/L Ra nge:3.4mmol/L-4.8mmol/L OSMOLALITY SerPl Ehxl217nspn/kg Range:275mosm/kg-295mosm/kg CREAT SERPL-MCNC0.9mg/dL Range:0 .5mg/dL-1.2mg/dL BUN SERPL-MCNC14.0mg/dL Range:7m g/dL-24mg/dL Comments:RESULTS REVIEWED BY TECH CINDY SERPL-MCNC0.5mg/dL Range :0mg/dL-1.2mg/dL CALCIUM BLD-MCNC8.4mg/dL(Low) Ra nge:8.6mg/dL-10.2mg/dL ALBUMIN SERPL-MCNC3.7g/dL Range: 3.5g/dL-5.1g/dL AST SERPL-CCNC28{[U/L]} Range:9{ [U/L]}-35{[U/L]} LIPASE SERPL-CCNC Ordered On:23-Sep-2024 8:33 23-Sep-2024 9:22 LIPASE SERPL-CCNC45{[U/L]} Range :9{[U/L]}-60{[U/L]} LACTATE SERPL-MCNC Ordered On:23-Sep-2024 8:33 23-Sep-2024 9:10 LACTATE SERPL-MCNC4.9mg/dL Range :4.5mg/dL-18mg/dL UA DIPSTICK PNL UR STRIP.AUTO Ordered On:04-Sep-2024 13:06 04-Sep-2024 13:50 PROT UR STRIP.AUTO-M CNCNEGATIVE [mg/dL] Range:NEGA COMMENTNONE KETONES UR STRIP.AUTO-MCNCNEGATIVE [mg/dL] Range:NEGA CLARITY URCLOUDY GLUCOSE UR STRIP.AUTO-MCNCNEGATIVE [mg/dL] Range:NEGA COLOR URYELLOW NITRITE UR QL STRIP.AUTONEGATIVE Range:NEGA SP GR UR STRIP.AUTO1.029 Range:1 .001-1.035 LEUKOCYTE ESTERASE U R QL STRIP.AUTONEGATIVE [{wbc}/uL] Range:NEGA PH UR STRIP.AUTO5.5 Range:5-8 BILIRUB UR STRIP.AUTO-MCNCNEGATIVE [mg/dL] Range:NEGA HGB UR STRIP.AUTO-MC NCNEGATIVE [{rbc}/uL] Range:NEGA UROBILINOGEN UR STRIP.AUTO-MCNC0.2mg/dL Range:0.2 04-Sep-2024 13:06 SPECIMEN SOURCE XXXC LEAN CATCH URINE Encounters Ambulatory Encounter Reason:diarrhea, concern for uti 30-Aug-2025 12:[id number] 12:45 Naren Montanez (Attending) [facility] Ambulatory Encounter Reason:Possible UTI 25-Aug-2025 15:03Ow4-Jtg-2741 16:16 Ray Morataya (Attending) [facility] Emergency Encounter Diagnosis:Chronic interstitial cystitis,Other specified disorders of bladder 12-Aug-2025 23:[id number] 0:54 Chente Eric (Attending) [facility] Ambulatory Encounter Diagnosis:Dysuria 09-Aug-2025 13:56Na40-Hnx-4452 13:57 Sherry Johnson (Attending) [facility] Ambulatory Encounter Diagnosis:Dysuria 01-Aug-2025 18:21Fi28-Qfz-7557 18:57 Mathieu Gregory (Attending) [facility] Ambulatory Encounter Reason:UTI symptoms Encounter Diagnosis:Dysuria 22-Jul-2025 14:29Qn2-Eqc-5784 14:55 [facility] Ambulatory Encounter Diagnosis:Dysuria 08-Jul-2025 9:94Jb90-Awm-9678 11:20 George Flower (Attending) [facility] Ambulatory Encounter Diagnosis:Dysuria 05-Jul-2025 15:77Ga01-Ryv-6531 16:19 Ousmane Mallory (Attending) [facility] Ambulatory Encounter Reason:UTI symptoms Encounter Diagnosis:Dysuria 01-Jul-2025 8:85Sq94-Rfw-6844 9:50 Naren Montanez (Attending) [facility] Ambulatory Encounter Diagnosis:Dysuria 15-Jun-2025 16:86Si16-Klw-6663 17:04 Naren Montanez (Attending) [facility] Ambulatory Encounter Diagnosis:Chronic pain,Hallux valgus (acquired), right foot,Contracture, right ankle,Pain in right ankle and joints of right foot,Metatarsalgia, right foot,Pain in right foot,Leg cramps 13-Jun-2025 15:16Wu29-Tba-1691 23:59 Laura York (Attending) [facility] Ambulatory Encounter Diagnosis:Person with feared health complaint in whom no diagnosis is made 05-Jun-2025 15:[id number]-1468 16:38 Noemi Solorio (Attending) [facility] Encounter Diagnosis:Unspecified abdominal pain 29-May-2025 9:33Lq22-Tba-9139 12:26 Sascha Eid (Attending) [facility] Encounter Reason:uti Encounter Diagnosis:Procedure and treatment not carried out for other reasons 27-May-2025 15:80Gd58-Svj-7470 16:47 Naren Montanez (Attending) [facility] Encounter Reason:Possible UTI Encounter Diagnosis:Other specified disorders of bladder 17-May-2025 15:84Qc9-Dox-0270 16:04 Sherry Johnson (Attending) [facility] Encounter Diagnosis:Dysuria 07-May-2025 15:06Zi34-Mol-6334 16:13 George Flower (Attending) [facility] Encounter Diagnosis:Dysuria 30-Apr-2025 11:49Ql64-Qoe-3010 12:06 Laura Quiroga (Attending) [facility] Encounter Diagnosis:Urinary frequency 27-Apr-2025 17:83Zb62-Uxx-1566 23:59 Brayden Quigley (Attending) [facility] Encounter Diagnosis:Other specified disorders of bladder 27-Apr-2025 16:30 B Ambulatory 27-Apr-2025 16:30To1 17-Apr-2025 16:45 Brayden Quigley (Attending) [facility] Encounter Diagnosis:Dysuria 24-Apr-2025 12:14Vx9-Kwv-4962 13:00 [facility] Encounter Diagnosis:Decreased GFR 18-Apr-2025 15:91Vk4-Lqr-5587 23:59 Idalmis Richard (Attending) [facility] 14-Apr-2025 16:30To2 25-Mar-2025 17:00 Hilary Raygoza (Attending) [facility] Encounter Diagnosis:Pain in right ankle and joints of right foot 14-Apr-2025 16:54Er36-Cte-9058 23:59 Idalmiskenneth Richard (Attending) [facility] Encounter Diagnosis:Dysuria 12-Apr-2025 15:80Ej19-Sne-1523 16:28 Naren Montanez (Attending) [facility] Encounter Diagnosis:Low back pain, unspecified,Urinary frequency,Urgency of urination,H/O hydronephrosis 06-Apr-2025 16:22Cp10-Ajj-3486 16:50 Emiliana Mason (Attending) [facility] Encounter Reason:Possibel UTI Encounter Diagnosis:Dysuria 30-Mar-2025 15:65Hv65-Ejb-3576 16:01 Sherry Johnson (Attending) [facility] Encounter Diagnosis:Other symptoms and signs involving the genitourinary system 24-Mar-2025 15:12Wn9-Hjz-6982 16:15 Naren Montanez (Attending) [facility] Encounter Diagnosis:Urinary frequency 21-Mar-2025 15:72Ds9-Gep-0491 16:41 Girish Xiong (Attending) [facility] Encounter Diagnosis:Dysuria,Urinary frequency 14-Mar-2025 13:62Oi59-Oip-1721 14:26 Laura Quiroga (Attending) [facility] Encounter Diagnosis:Unspecified ovarian cyst, unspecified side 14-Mar-2025 10:15Xi17-Vdl-7643 23:59 Idalmis Richard (Attending) [facility] Encounter Diagnosis:Chronic interstitial cystitis,Diarrhea, unspecified 10-Mar-2025 19:10Qe78-Ycw-0029 22:26 Sascha Eid (Attending) [facility] Encounter Diagnosis:Scar conditions and fibrosis of skin,Localized swelling, mass and lump, left upper limb 03-Mar-2025 10:55Pm86-Nge-8577 23:59 Idalmis Richard (Attending) [facility] 03-Mar-2025 10:00To1 21-Feb-2025 11:00 Hilary Raygoza (Attending) [facility] Encounter Diagnosis:Dysuria 01-Mar-2025 10:49Bu49-Jqv-8739 23:59 Idalmiskenneth Richard (Attending) [facility] 01-Mar-2025 10:00To1 19-Feb-2025 10:30 Hilary Raygoza (Attending) [facility] Encounter Diagnosis:Other specified disorders of bladder 24-Feb-2025 4:35Hx15-Gnr-6425 5:29 [facility] Encounter Diagnosis:Hematuria, unspecified 15-Feb-2025 7:20Lu5-Ygt-6711 8:11 Naren Montanez (Attending) [facility] Encounter Diagnosis:Acetonuria,ACETONURIA 09-Feb-2025 9:85Sm53-Jsz-9520 23:59 Idalmiskneneth Richard (Attending) [facility] 08-Feb-2025 15:00To2 19-Jan-2025 16:00 Hilary Raygoza (Attending) [facility] Encounter Diagnosis:Urinary frequency,Chills (without fever) 08-Feb-2025 14:18Xf74-Lci-5309 23:59 Idalmis Amandablaine Richard (Attending) [facility] Emergency Encounter Diagnosis:Rash,Adverse effect of other systemic antibiotics, initial encounter 01-Feb-2025 5:53Hg37-Buj-0822 6:53 Holger Maldonado (Attending) [facility] Encounter Diagnosis:Other specified noninflammatory disorders of vagina 31-Jan-2025 18:63Zf71-Zyk-2373 19:25 Sherry Johnson (Attending) [facility] Encounter Diagnosis:Urinary frequency 29-Jan-2025 6:99Dw75-Ndy-0711 7:10 Naren Montanez (Attending) [facility] Encounter Diagnosis:Dysuria 27-Jan-2025 1:84Mb98-Gcq-0718 2:18 Evaristo Cartagena (Attending) [facility] Encounter Diagnosis:Dysuria 21-Jan-2025 15:30Uc0-Aea-3518 16:21 Naren Montanez (Attending) [facility] Encounter Diagnosis:Urinary tract infection,Dysuria 08-Jan-2025 1:35Pp77-Ozl-2236 2:44 [facility] Encounter Diagnosis:H/O hydronephrosis 04-Jan-2025 16:52Vl82-Djn-5540 17:26 Emiliana Mason (Attending) [facility] Encounter Diagnosis:Dysuria,Hematuria, unspecified 30-Dec-2024 16:70Uo56-Yaq-1481 17:33 Naren Montanez (Attending) [facility] Encounter Diagnosis:Dysuria 24-Dec-2024 22:41Ia8-Itj-8943 0:39 Girish Casas (Attending) [facility] Encounter Diagnosis:Dysuria 17-Dec-2024 12:52Ps25-Nln-5049 14:48 George Flower (Attending) [facility] Encounter Diagnosis:Cystitis, unspecified without hematuria 08-Dec-2024 11:16Qm76-Jka-7028 12:57 Holger Maldonado (Attending) [facility] Encounter Diagnosis:Dysuria 04-Dec-2024 18:28Zc58-Zrn-6210 19:00 George Flower (Attending) [facility] Encounter Diagnosis:Chronic pelvic pain in female,Dysuria 29-Nov-2024 14:72Jo93-Psx-4451 15:39 Laura Quiroga (Attending) [facility] Encounter Diagnosis:Dysuria 26-Nov-2024 12:99Nc03-Wfz-4232 23:59 Brayden Quigley (Attending) [facility] Encounter Diagnosis:Chronic interstitial cystitis,Dysuria,Urinary frequency 26-Nov-2024 11:45 B Ambulatory 26-Nov-2024 11:45To1 12:00 Brayden Quigley (Attending) [facility] Encounter Diagnosis:Chest pain, atypical,Exposure to COVID-19 virus,Dysuria 19-Nov-2024 23:61Qs7-Uyz-5944 4:02 [facility] Encounter Diagnosis:Dysuria 19-Nov-2024 1:03Wa5-Gyw-2288 2:20 [facility] Encounter Diagnosis:Dysuria 10-Nov-2024 14:53Bh64-Vpm-1740 16:14 [facility] Encounter Diagnosis:Essential (primary) hypertension,Dysuria 05-Nov-2024 23:35Vm47-Gwm-3603 1:32 LASHAE GANDARA (Attending) [facility] Encounter Diagnosis:Urinary frequency 03-Nov-2024 9:74Ku75-Gdv-6116 9:56 Girish Xiong (Attending) [facility] Encounter Diagnosis:Dysuria 29-Oct-2024 11:86Nx69-Tea-5097 14:13 [facility] Encounter Diagnosis:Urinary frequency 27-Oct-2024 10:29Ys10-Umd-5476 12:28 Chente Eric (Attending) [facility] Encounter Diagnosis:Urinary frequency 23-Oct-2024 14:55Qh7-Vuu-3717 15:07 Naren Montanez (Attending) [facility] Encounter Diagnosis:Chronic interstitial cystitis 22-Oct-2024 7:52Kw4-Rkj-0021 11:12 Brayden Quigley (Attending) [facility] Encounter Diagnosis:Dysuria 18-Oct-2024 15:37Dd4-Hcj-9122 17:49 [facility] Encounter Diagnosis:Nasal congestion,Dysuria,Urinary frequency 14-Oct-2024 9:75Lo00-Uyf-2748 10:24 Mathieu Gregory (Attending) [facility] Encounter Diagnosis:Acute upper respiratory infection, unspecified,Dysuria,Urinary frequency 11-Oct-2024 9:51Ay41-Pyk-4296 10:38 Naren Montanez (Attending) [facility] Encounter Diagnosis:Mixed irritable bowel syndrome 05-Oct-2024 14:45 B Ambulatory 05-Oct-2024 14:45To1 25-Sep-2024 15:30 Jerilyn Mejia (Attending) [facility] Encounter Diagnosis:Dysuria 04-Oct-2024 15:60Nu69-Ynh-8313 16:24 Mathieu Gregory (Attending) [facility] Encounter Diagnosis:Dysuria 30-Sep-2024 12:51Rr43-Iux-6381 13:51 Ray Morataya (Attending) [facility] Encounter Diagnosis:Dysuria 26-Sep-2024 9:30Xb89-Czn-1910 10:15 George Flower (Attending) [facility] Encounter Diagnosis:Urinary frequency 24-Sep-2024 16:26Ao1-Oyh-0272 23:59 Brayden Quigley (Attending) [facility] Encounter Diagnosis:Dysuria,Urinary frequency 24-Sep-2024 15:45 B Ambulatory 24-Sep-2024 15:45ToSep-2024 16:00 Brayden Quigley (Attending) [facility] Encounter Diagnosis:Unspecified abdominal pain 23-Sep-2024 8:52Nn8-Rqg-3695 10:37 Holger Maldonado (Attending) [facility] Encounter Diagnosis:Unspecified abdominal pain 21-Sep-2024 18:19Et8-Zre-9837 21:24 Chente Eric (Attending) [facility] Encounter Diagnosis:Dysuria 21-Sep-2024 9:44Jd6-Gpc-9723 10:11 Ray Morataya (Attending) [facility] Encounter Reason:possible UTI Encounter Diagnosis:Dysuria,Urinary frequency 15-Sep-2024 15:05Zn23-Tsr-1196 16:25 Laura Quiroga (Attending) [facility] Encounter Diagnosis:Dysuria 14-Sep-2024 15:95Lx39-Yxr-4283 16:33 Naren Montanez (Attending) [facility] Encounter Diagnosis:Dysuria 04-Sep-2024 12:36Yp22-Dne-8315 13:58 Sascha Eid (Attending) [facility] Encounter Reason:dizziness, chest pain, burning when urinating, 30-Jul-2024 9:05 Naren Montanez (Attending) [facility]
--- OUTSIDE RECORDS SUMMARY | 2025-09-02 14:59 | XMS_ITS | Clinical Summary ---
Author Organization [facility] Address [address] [facility], [place] [address] Phone Care Team Providers Care Associate Designer Name Role Phone Jorge Raygoza DPM Unavailable [phone] Jagdish Bryant MD Unavailable Dia Allen CUTTER MACHINE, WAREHOUSE RECEIVING SUPERVISOR Primary Care P rovider Mirtha Franklin MD Unavailable [phone] Allergies Active Allergy Reactions Criticality Noted [...] Cologuard 2022 Immunochemical Fecal Occult Blood 2022 Mammogram 10/03/2024 10/03/2023, 02/17, 03/16/2021, Additional history exists Influenza Immunization (#1) 07/18/202508/18, 08/11/2020, 08/23/2019 SARS-COV-2 Immunization (2024- season) 2025 12/02/2021, 06/01/2021, 05/11/2021 Colonoscopy 05/01/2033 05/01/2023, 03/19, 06/11/2022, Additional history [...] OR DERABLES Final Result Performing Organization Address City/[facility]/ZIP Co de Phone Number SCAN from Last 3 Months or Most Recently Relevant to Health Maintenance Insurance [facility] Advance Directives * Full Code (Latest Code Status on File) Date Activated Date Inactivated Comments 08/20/2022 2:26 AM 08/22/2022 3:55 PM CPR-Full Joseph atment: FULL ARREST: Attempt Resuscitation/CPR wit intubation and mechanical ventilation. PRE-ARREST: Use entire range of life support measures to stabilize the patient. Care Teams Associate Designer Relationship Specialty Start Date End Date Dia Allen CUTTER MACHINE, WAREHOUSE RECEIVING SUPERVISOR [address] [place] [address] PCP - General Advanced Practice Nurse 02/14/23 Jorge Raygoza DPM Podiatry 02/29/16 Jagdish Bryant MD [address] [address] Consulting Physician Colon and Rectal Surgery 06/17/22 Mirtha Franklin MD [address] [place] [address] Consulting Physician Gastroenterology 12/12/22
--- OUTSIDE RECORDS SUMMARY | 2025-09-02 14:59 | XMS_ITS | Encounter Summary ---
Author Organization [facility] Address [address] [place] [address] Phone Care Team Providers Care Lap Grinder Name Role Phone Brian Lebron MD Primary Care Provider No, Physician Primary Care Provider Antonella Ivory RECIPROCATING DRILL OPERATOR Primary Care Provider [phone] No, Physician Primary Care Provider [phone] Char Chang DO Primary Care Provider + [phone], Physician Primary Care Provider [phone] Miscellaneous, Not In File Primary Care Provider Unavailable No, Physician Primary Care Provider Anaya Portillo MD Primary Care Provider [phone] Eda Alvarez MD Primary Care Provider + [phone] Dona Lamas MD Unavailable [phone] Mauri Dixon MD Primary Care Provider [phone] Mauri Dixon MD Primary Care Provider [phone] No, Physician Primary Care Provider No, Physician Primary Care Provider [phone] Lizeth Munguia RECIPROCATING DRILL OPERATOR Primary Care Provider [phone] Raegan Mercado Primary Care Prov ider Will Briscoe DO Primary Care Provider + [phone] Raegan Mercado Primary Care Prov ider Raegan Mercado Primary Care Prov ider Will Briscoe DO Primary Care Provider + [phone] Raegan Mercado Primary Care Prov ider Will Briscoe DO Primary Care Provider + [phone] Cornelio Hernandez MD Primary Care Provider [phone] Anai Mullins MD Primary Care Provider [phone] Anai Mullins MD Primary Care Provider [phone] No, Physician Primary Care Provider [phone] Deirdre Bennett RECIPROCATING DRILL OPERATOR Primary Care Provider [phone] Justice Baeza MD Unavailable Agatha Quiñones RECIPROCATING DRILL OPERATOR Primary Care Provider [phone] Encounter Details Date Type Department Care Team (Late st Contact Info) Description 02/25/2018 Orders Only [facility] ProviderViola MD [address] [place] [address] Social History Tobacco Use Types Packs/Day Years Used Date Smoking Tobacco: Former Cigarettes Q uit: 11/17/2009 Alcohol Use Standard Drinks/Week Comments No 0 (1 standard drink = 0.6 oz pur e alcohol) Comments Unknown Sex and Gender Information Value Date Recorded Sex Assigned at Not on file Legal Sex Female 12:19 AM HEADING AND PRIMING OPERATOR Gender Identity Not on file Sexual [...] COVID: Suspected 11/16/2022 11/16/2022 11/16/2022 10:13 AM HEADING AND PRIMING OPERATOR COVID19 11/16/2022 11/16/2022 11/26/2022 3:05 AM HEADING AND PRIMING OPERATOR COVID: Recovered Comment:Added based on recent COVID infection. 11/26/2022 11/27/2022 02/24/2023 3:05 AM C DT COVID: Suspected 08/10/2023 08/10/2023 08/10/2023 9:04 AM CDT COVID: Suspected 01/13/2024 01/13/2024 01/13/2024 9:35 AM HEADING AND PRIMING OPERATOR COVID: Suspected 02/18/2024 02/18/2024 02/18/2024 9:47 AM CDT documented as of this encounter Care Teams Lap Grinder Relationship Specialty Start Date End Date Brian Lebron MD [address] [facility] [address] [place] [id number] PCP - General 04/01/17 11/19/18 No, Physician PCP - General 11/20/18 01/04/19 Antonella Ivory NP PCP - General Gynecologic Oncology 01/05/19 01/09/19 No, Physician PCP - General 01/10/19 01/24/19 Char Chang DO [facility] [place] [address] PCP - General 01/25/19 06/22/19 No, Physician PCP - General 06/23/19 07/21/19 Miscellaneous, Not In File PCP - General 07/22/19 08/02/19 No, Physician PCP - General 08/03/19 08/29/19 Anaya Portillo MD [address] [facility] [address] AL[address]CIA [address] [place] [address] PCP - General Family Medicine 08/30/19 09/23/19 Eda Alvarez MD [address] [facility] [address] ALY[address]IA [address] [place] [address] PCP - General 09/24/19 07/03/21 Mauri Dixon MD [address] [facility] [address] ALYCIA Z[address]IA [address] [place] [address] PCP - General 07/04/21 07/05/21 Mauri Dixon MD [address] [facility] [address] ALYCIA [address] [place] [address] PCP - General 07/06/21 08/05/21 No, Physician PCP - General 08/09/21 02/05/22 No, Physician PCP - General 08/06/21 08/08/21 Lizeth Munguia, ELENA [address] [facility] [address] [place] [address] PCP - General Nurse Practitioner 02/06/22 06/13/22 Raegan Mercado PA [address] [place], [place] [id number] PCP - General 06/14/22 06/27/22 Will Briscoe DO [address] [place], [place] [address] PCP - General Family Medicine 06/28/22 07/03/22 Raegan Mercado PA [address] [place], [place] [address] PCP - General 07/04/22 07/04/22 Raegan Mercado PA [address] [place], [place] [address] PCP - General 07/05/22 07/09/22 Will Briscoe DO [address] [place] [address] PCP - General Family Medicine 07/10/22 07/12/22 Raegan Mercado PA [address] [place], [place] [address] PCP - General 07/13/22 07/29/22 Will Briscoe DO [address] [place] [address] PCP - General Family Medicine 07/30/22 09/23/22 Cornelio Hernandez MD [address] [place] [address] PCP - General Family Medicine 09/24/22 01/02/23 Anai Mullins MD [address] [place] [address] PCP - General Obstetrics and Gynecology 01/03/2312/19 Anai Mullins MD [address] [place], [place] [address] PCP - General Obstetrics and Gynecology 01/08/2301/15 No, Physician PCP - General 01/30/23 03/11/23 Deirdre Bennett NP [address] [facility] [address] [place], [place] [address] PCP - General Family Medicine 03/12/23 01/19/24 Agatha Quiñones NP [address] [facility] [address] [place] [address] PCP - General Confectionery Cooker 01/20/24 Dona Lamas MD [address] [facility] [address] ALYCIA Guerra [address] [address] Referring Physician Gastroenterology 10/12/19 03/11/23 Justice Baeza MD [address] [facility] [address] [place] [address] Consulting Physician Gastroenterology 04/09/23 documented as of this encounter
--- OUTSIDE RECORDS SUMMARY | 2025-09-02 14:59 | XMS_ITS | Encounter Summary ---
Author Organization [facility] Address [address] [place] [address] Phone Care Team Providers Care Cardboard Cutter Name Role Phone Jorge Raygoza DPM Unavailable [phone] Jagdish Bryant MD Unavailable Will Briscoe DO Primary Care Provider [phone] Cornelio Hernandez MD Primary Care Provider [phone] Anai Mullins MD Primary Care Provider Dia Delgadillo APRN, [facility] Primary Care P rovider Mirtha Franklin MD Unavailable [phone] Reason for Visit * Reason Onset Date Comments New Patient 08/13/2022 Encounter Details Date Type Department Care Team (Late st Contact Info) Description 08/13/2022 Telephone [facility] [address] [place] [address] Provider, None [place] New Patient [...] 08/13/2022 2:41 PM CDT ----- Message from [employer] sent at 08/12/2022 6:12 PM CDT ----- Regarding: New Patient New [facility] Primary Provider Request Insurance of patient: [place] Name of person calling: Yaquelin Jauregui Relationship to patient: Self Preferred phone number: [phone] Alternate phone number: n/a [place] [facility] [place] [address] Provider preference (male/female, specific provider name): Rossi Villalta Willing to see someone other than physician, such as ANDREY, ANNETTE, resident? yes Patient reason for appointment/any current symptoms: Establish Care- Gastro Referral Other information (including need for restaurant crew person): No * Telephone Encounter - Heavenly Allred - 08/13/2022 2:40 PM CDT ----- Message from [employer] sent at 08/12/2022 6:12 PM CDT ----- Regarding: New Patient New [facility] Primary Provider Request Insurance of patient: [place] Name of person calling: Yaquelin Jauregui Relationship to patient: Self Preferred phone number: [phone] Alternate phone number: n/a [place] / [place] [facility] [place] [address] Provider preference (male/female, specific provider name): Rossi Villalta Willing to see someone other than physician, such as EYE CARE PROFESSIONAL, PA, resident? yes Patient reason for appointment/any current symptoms: Establish Care- Gastro Referral Other information (including need for restaurant crew person): No documented in this encounter Plan of Treatment Not on file documented as of this encounter Visit Diagnoses Not on filedocumented in this encounter Additional Health Concerns Infection Onset Date Last Indicated Resolved Time COVID - 19 Confirmed 09/15/2022 09/15/2022 022 12:16 AM EPILEPSY PHYSICIAN documented as of this encounter Care Teams Cardboard Cutter Relationship Specialty Start Date End Date Will Briscoe DO [address] [address] PCP - General Family Medicine 07/18/22 08/22/22 Cornelio Hernandez MD [address] [facility] [address] [place] [address] PCP - General Admission Discharge Rn 08/25/22 12/31/22 Anai Mullins MD [address] [facility] [address] [place] [address] PCP - General Family Medicine 01/01/23 02/13/23 Dia Allen APRN, BALANCING MACHINE OPERATOR [address] [place] [address] PCP - General Advanced Practice Nurse 02/14/23 Jorge Raygoza DPM Podiatry 02/29/16 Jagdish Bryant MD [address] [address] Consulting Physician Colon and Rectal Surgery 06/17/22 Mirtha Franklin MD [address] [place] [address] Consulting Physician Gastroenterology 12/12/22 documented as of this encounter
--- OUTSIDE RECORDS SUMMARY | 2025-09-02 14:59 | XMS_ITS | Clinical Summary ---
Author Organization [facility] Address [address] [place] [address] Care Team Providers Care Piping Designer Name Role Phone None, Provider MD Primary [...] HPV 2007 Mammogram Screening 2017 COVID-19 Vaccine (2024-2 6 season) 2025 06/01/2021, 05/11/2021 Influenza Adult (#1) 2025 08/23/2019 Meningococcal B Vaccine Aged Out No l [...] age to complete this topic Care Teams Piping Designer Relationship Specialty Start Date End Date None, Provider, PCP - General 07/22/21
--- OUTSIDE RECORDS SUMMARY | 2025-09-02 14:59 | XMS_ITS | Encounter Summary ---
Author Organization [facility] Address [address] [place] [address] Care Team Providers Care Structural Technician Name Role Phone Eda Alvarez MD Primary Care Provider [phone] Dona Lamas MD Unavailable [phone] Mauri Dixon MD Primary Care Provider [phone] Mauri Dixon MD Primary Care Provider [phone] No, Physician Primary Care Provider No, Physician Primary Care Provider [phone] Lizeth Munguia NP Primary Care Provider [phone] Raegan Mercado Primary Care Prov ider Will Briscoe DO Primary Care Provider [phone] Raegan Mercado Primary Care Prov ider Raegan Mercado Primary Care Prov ider Will Briscoe DO Primary Care Provider + [phone] Raegan Mercado Primary Care Prov ider Will Briscoe DO Primary Care Provider [phone] Cornelio Hernandez MD Primary Care Provider [phone] Anai Mullins MD Primary Care Provider [phone] Anai Mullins MD Primary Care Provider [phone] No, Physician Primary Care Provider [phone] Deirdre Bennett BRICK BURNER HEAD Primary Care Provider [phone] Justice Baeza MD Unavailable Agatha Quiñones BRICK BURNER HEAD Primary Care Provider [phone] Reason for Visit * Reason Onset Date Comments Scheduling Appointments 03/14/2021 Confirmi ng mammogram appt- no answer Encounter Details Date Type Department Care Team (Late st Contact Info) Description 03/14/2021 Telephone [facility] [address] [place], [place] [id number] Isabel Su RT Scheduling Appointments (Confirming mammogram [...] on file Legal Sex Female 12:19 AM LICENSED LIFE AND HEALTH AGENT Gender Identity Not on file Sexual Orientation [...] COVID: Suspected 11/16/2022 11/16/2022 11/16/2022 10:13 AM LICENSED LIFE AND HEALTH AGENT COVID19 11/16/2022 11/16/2022 11/26/2022 3:05 AM LICENSED LIFE AND HEALTH AGENT COVID: Recovered Comment:Added based on recent COVID infection. 11/26/2022 11/27/2022 02/24/2023 3:05 AM C DT COVID: Suspected 08/10/2023 08/10/2023 08/10/2023 9:04 AM CDT COVID: Suspected 01/13/2024 01/13/2024 01/13/2024 9:35 AM LICENSED LIFE AND HEALTH AGENT COVID: Suspected 02/18/2024 02/18/2024 02/18/2024 9:47 AM CDT documented as of this encounter Care Teams Structural Technician Relationship Specialty Start Date End Date Eda Alvarez MD PCP - General 09/24/19 07/03/21 Mauri Dixon MD PCP - General 07/04/21 07/05/21 Mauri Dixon MD PCP - General 07/06/21 08/05/21 No, Physician PCP - General 08/09/21 02/05/22 No, Physician PCP - General 08/06/21 08/08/21 Lizeth Munguia NP [address] [place] [address] PCP - General Nurse Practitioner 02/06/22 06/13/22 Raegan Mercado PA [address] [place] [address] PCP - General 06/14/22 06/27/22 Will Briscoe DO [address] [place] [address] PCP - General Family Medicine 06/28/22 07/03/22 Raegan Mercado PA [address] [place] [address] PCP - General 07/04/22 07/04/22 Raegan Mercado PA [address] [place] [address] PCP - General 07/05/22 07/09/22 Will Briscoe DO [address] [place] [address] PCP - General Family Medicine 07/10/22 07/12/22 Raegan Mercado PA [address] [place] [address] PCP - General 07/13/22 07/29/22 Will Briscoe DO [address] [place] [address] PCP - General Family Medicine 07/30/22 09/23/22 Cornelio Hernandez MD [address] [place] [address] PCP - General Family Medicine 09/24/22 01/02/23 Anai Mullins MD [address] [place] [address] PCP - General Obstetrics and Gynecology 01/03/2312/19 Anai Mullins MD [address] [place] [address] PCP - General Obstetrics and Gynecology 01/08/2301/15 No, Physician PCP - General 01/30/23 03/11/23 Deirdre Bennett NP [facility] [address] [facility] [address] [place] [address] PCP - General Family Medicine 03/12/23 01/19/24 Agatha Quiñones NP [address] [facility] [address] [place] [address] PCP - General Program Administrator 01/20/24 Dona Lamas MD Referring Physician Gastroenterology 10/12/19 03/11/23 Justice Baeza MD [address] [place] [address] [address] [place] [address] Consulting Physician Gastroenterology 04/09/23 documented as of this encounter
--- OUTSIDE RECORDS SUMMARY | 2025-09-02 14:59 | XMS_ITS | Continuity of Care Document ---
Author Organization [employer] Address [address] [place] [address] Phone Care Team Providers Care Desktop Architect Name Role Phone Unavailable Unavailable Unavailable Unavailable [...] Quantity: 1 Refills: 0 Ordered: 21-Jun-2025 Jake KITCHEN SUPERVISOR, MARINE SURVEYOR, Jerilyn Start : 30-May-2025 Active vibegron 75 MG Oral Tablet [Gemtesa];1 tab PO daily, 4 - day packets dispensed Quantity:28 Brayden Quigley Start:88-Tly-0659Izh:2024 Comments:Gemtesa 75 MG Oral Tablet 1 tab [...] MDSigned Date/Time: 06/14/2025 08:50 AM CDT RPWorkstation: [id number] Nbr: [id number] Date:13-Jun-2025 15:50 Status:Completed KUB 1 VIEWResult:KUB 1 ViewFinalCLINICAL INDICATION: Abdominal Pain CPT Code: 93540ZDMMZDNRV: 2 views, supine abdominal radiographsCOMPARISON: CT abdomen [...] MDSigned Date/Time: 05/29/2025 10:59 AM CDT RPWorkstation: [id number] Nbr: [id number] Date:29-May-2025 10:41 Status:Completed ANKLE RIGHT 2 VIEWSResult:Ankle [...] MDSigned Date/Time: 04/17/2025 04:30 PM CDT RPWorkstation: [id number] Nbr: [id number] Date:14-Apr-2025 16:18 Status:Completed US PELVISResult:US PelvisFinalCLINICAL INDICATION: [...] MDSigned Date/Time: 03/16/2025 07:06 PM CDT RPWorkstation: [id number] Nbr: [id number] Date:14-Mar-2025 11:22 Status:Completed CT ABDOMEN PELVIS WITHOUT [...] MDSigned Date/Time: 03/10/2025 10:05 PM CDT RPWorkstation: [id number] Nbr: [id number] Date:10-Mar-2025 20:33 Status:Completed CHEST 2 VIEWSResult:CHEST 2 VIEWSFinalEXAM: XR Chest, 2 ViewsCLINICAL HISTORY: The patient is 49 years old and is Female; chest pressure bilateral CPT Code: 15851JFNECFSTI: Frontal and lateral views of the chest.COMPARISON: XR Chest dated 07/30/2024FINDINGS: LUNGS: Unremarkable. No consolidation. PLEURAL SPACE: Unremarkable. No pneumothorax. HEART: Unremarkable. No cardiomegaly. MEDIASTINUM: Unremarkable. Normal mediastinal contour. BONES/JOINTS: Unremarkable. UPPER ABDOMEN: Cholecystectomy clips in the right upper quadrant.IMPRESSION:No acute cardiopulmonary findings.Electronically signed by: Nita Lucas MDSigned Date/Time: 11/20/2024 12:42 AM SOFTWARE TEST ANALYST RPWorkstation: [id number] Nbr: [id number] Date:20-Nov-2024 0:17 Status:Completed OR RETROGRADE PYELOGRAM BILATERALResult:OR [...] Treva Wayneaubree MDSigned Date/Time: 10/22/2024 02:01 PM SOFTWARE TEST ANALYST RPWorkstation: [id number] Nbr: [id number] Date:22-Oct-2024 9:29 Status:Completed CT ABDOMEN PELVIS WITHOUT CONTRASTResult:CT Abdomen Pelvis without ContrastFinalEXAMINATION: CT Abdomen Pelvis without ContrastRadLex: CT ABDOMEN PELVIS WITHOUT IV CONTRASTCLINICAL HISTORY:Pain CPT Code: 37439;TECHNIQUE: Unenhanced CT of the abdomen and pelvis [...] Neal Fregoso MDSigned Date/Time: 09/21/2024 08:53 PM SOFTWARE TEST ANALYST RPWorkstation: [id number] Nbr: [id number] Date:21-Sep-2024 20:11 Status:Completed CT ABDOMEN PELVIS WITHOUT [...] MDSigned Date/Time: 09/01/2024 04:50 PM CDT RPWorkstation: [id number] Nbr: [id number] Date:01-Sep-2024 16:13 Status:Completed KUB 1 VIEWResult:KUB 1 ViewFinalCLINICAL INDICATION: Constipation CPT Code: 12448NYMKRUCIT: 2 views, supine abdominal radiographsCOMPARISON: CT abdomen [...] MDSigned Date/Time: 08/21/2024 02:24 PM CDT RPWorkstation: [id number] Nbr: [id number] Date:21-Aug-2024 13:49 Status:Completed EKG 16 LeadResult:EKG 16 [...] MDSigned Date/Time: 07/30/2024 11:48 AM CDT RPWorkstation: [id number] Nbr: [id number] Date:30-Jul-2024 10:55 Status:Completed CHEST SINGLE VIEWResult:Chest Single ViewFinalCLINICAL INDICATION: stroke/TIA CPT Code: 74272EZSEFGPYP: Anteroposterior view of chest, one imageCOMPARISON: Chest [...] MDSigned Date/Time: 07/30/2024 11:01 AM CDT RPWorkstation: [id number] Nbr: [id number] Date:30-Jul-2024 10:14 Status:Completed CT BRAIN OR HEAD [...] MDSigned Date/Time: 07/30/2024 10:12 AM CDT RPWorkstation: [id number] Nbr: [id number] Date:30-Jul-2024 9:54 Status:Completed EKG 12 LeadResult:EKG 12 Lead- NORMAL ECG -Sinus rhythmOrder #:[id number] by: Catarino Lewis MD Date:30-Jul-2024 9:37 EKG 12 LeadResult:EKG 12 Lead- OTHERWISE NORMAL ECG -Sinus rhythmOrder #:[id number] by: Ector Perez MD Date:19-Jul-2024 3:46 CHEST 2 VIEWSResult:CHEST 2 VIEWSFinalEXAM DESCRIPTION:CHEST 2 VIEWS 07/19/2024 3:28 AM CDTRadLex: XR CHEST 2 VIEWSCLINICAL HISTORY:49 years Female, Shortness Of Breath CPT Code: 68039PFZXABIRUL:NoneTECHNIQUE: 2 PA and lateral radiographic views of [...] MDSigned Date/Time: 07/19/2024 03:46 AM CDT RPWorkstation: [id number] Nbr: [id number] Date:19-Jul-2024 3:19 Status:Completed CT ABDOMEN PELVIS WITHOUT CONTRASTResult:CT Abdomen Pelvis without ContrastFinalNONCONTRAST CT SCANS ABDOMEN AND PELVISHISTORY: Pain CPT Code: 48046CBFGVVNCAO: April 06, 2024.TECHNIQUE:Radiation dose reduction techniques were [...] 06/05/2024 03:20 AM CDT RPWorkstation: [id number] Nbr: [id number] Date:05-Jun-2024 2:43 Status:Completed EKG 12 LeadResult:EKG 12 [...] Carnes Date/Time: 04/06/2024 10:00 AM CDT RPWorkstation: [id number] Nbr: [id number] Date:06-Apr-2024 9:33 Status:Completed Results UA DIPSTICK PNL [...] EOSINOPHIL NFR BLD AUTO0.8% PLATELET NO. BLD KKLR044{[10*3/uL]} Range:135{[10*3/uL]}-370{[10 *3/uL]} MONOCYTES NFR BLD AUTO5.6% HCT VFR BLD40.8% Range:34%-45% MCH RBC QN AUTO29.3pg Range:27pg -34pg MCHC RBC AUTO-MCNC33.3g/dL Range :31g/dL-35g/dL LYMPHOCYTES NO. BLD AUTO1.13{[10*3/uL]} Range:0.6{[10*3/uL]}-3.5{[10 *3/uL]} 29-May-2025 10:23 DIFF TYPEAUTOMATED D IFFERENTIAL PERFORMED COMP METAB 1999 PNL SERPL Ordered On:29-May-2025 10:23 29-May-2025 11:04 BUN/CREAT SerPl18.4 CHLORIDE BLDV-WFPQ991eqrd/L Rang e:98mmol/L-108mmol/L PROT SERPL-MCNC7.3g/dL Range:6.3 g/dL-8g/dL SODIUM SERPL-HEMF921guiw/L(Low) Range:136mmol/L-144mmol/L CO2 BLD-GXCY47hjzi/L(Low) Range: 22mmol/L-30mmol/L CREAT SERPL-MCNC0.8mg/dL Range:0 .5mg/dL-1.2mg/dL ALT SERPL-CCNC45{[U/L]}(High) Ra nge:5{[U/L]}-40{[U/L]} CALCIUM BLD-MCNC9.0mg/dL Range:8 .6mg/dL-10.2mg/dL ALBUMIN SERPL-MCNC3.9g/dL Range: 3.5g/dL-5.1g/dL POTASSIUM SERPL-SCNC4.2mmol/L Ra nge:3.4mmol/L-4.8mmol/L Comments:Mild hemolysis was detected during testing.Potassium value may be falsely elevated by as much as 0.3-0.7 mmol/L.A redraw will be performed upon request. GFR,OTHER(CKD-EPI)91 {[mL/min/1.7 3m2]} Range:89{[mL/min/1.73m2]}-0 BILIRUB SERPL-MCNC0.4mg/dL Range :0mg/dL-1.2mg/dL BUN SERPL-MCNC13.9mg/dL Range:7m g/dL-24mg/dL AST SERPL-CCNC38{[U/L]}(High) Ra nge:9{[U/L]}-35{[U/L]} GLUCOSE SERPL-LACD86lj/dL Range: 65mg/dL-100mg/dL ANION GAP11 Range:2-15 ALP BLD-CCNC74{[U/L]} Range:35{[ U/L]}-104{[U/L]} OSMOLALITY SerPl Nkva675lmij/kg Range:275mosm/kg-295mosm/kg LIPASE SERPL-CCNC Ordered On:29-May-2025 10:23 29-May-2025 [...] Range:5{ [U/L]}-40{[U/L]} BUN SERPL-MCNC16.3mg/dL Range:7m g/dL-24mg/dL GLUCOSE SERPL-SNNS85uk/dL Range: 65mg/dL-100mg/dL BILIRUB SERPL-MCNC0.3mg/dL Range :0mg/dL-1.2mg/dL ANION GAP10 Range:2-15 CALCIUM BLD-MCNC8.4mg/dL(Low) Ra nge:8.6mg/dL-10.2mg/dL CO2 BLD-OIXS82anho/L Range:22mmo l/L-30mmol/L BUN/CREAT SerPl21.2 CHLORIDE BLDV-IVVV309jngl/L Rang e:98mmol/L-108mmol/L SODIUM SERPL-XCPC169shkk/L Range :136mmol/L-144mmol/L POTASSIUM SERPL-SCNC3.7mmol/L Ra nge:3.4mmol/L-4.8mmol/L GFR,OTHER(CKD-EPI)91 {[mL/min/1.7 3m2]} Range:89{[mL/min/1.73m2]}-0 OSMOLALITY SerPl Bmxz841dmmo/kg Range:275mosm/kg-295mosm/kg ALBUMIN SERPL-MCNC3.9g/dL Range: 3.5g/dL-5.1g/dL CREAT SERPL-MCNC0.8mg/dL [...] GRANULOCYTES BLD QL AUTO0.3% PLATELET NO. BLD GDOS129{[10*3/uL]} Range:135{[10*3/uL]}-370{[10 *3/uL]} MCV RBC AUTO89.5fL Range:83fL-98 fL PMV BLD AUTO10.7fL Range:9fL-12f L WBC NO. BLD AUTO6.4{[10*3/uL]} R chris:3{[10*3/uL]}-11.4{[10* 3/uL]} MONOCYTES NFR BLD AUTO5.9% LYMPHOCYTES NFR BLD AUTO28.0% 10-Mar-2025 20:28 DIFF TYPEAUTOMATED D IFFERENTIAL PERFORMED COMP METAB 2000 PNL SERPL Ordered On:10-Mar-2025 20:28 10-Mar-2025 21:08 BUN/CREAT SerPl14.1 CREAT SERPL-MCNC0.9mg/dL Range:0 .5mg/dL-1.2mg/dL SODIUM SERPL-VRNY291cwor/L(Low) Range:136mmol/L-144mmol/L GLUCOSE SERPL-EACP51cc/dL Range: 65mg/dL-100mg/dL CHLORIDE BLDV-PFFE032ahxl/L Rang e:98mmol/L-108mmol/L PROT SERPL-MCNC7.1g/dL Range:6.3 g/dL-8g/dL ALT SERPL-JRGG926{[U/L]}(High) R chris:5{[U/L]}-40{[U/L]} ANION GAP9 Range:2-15 AST SERPL-CCNC63{[U/L]}(High) Ra nge:9{[U/L]}-35{[U/L]} CALCIUM BLD-MCNC8.7mg/dL Range:8 .6mg/dL-10.2mg/dL BILIRUB SERPL-MCNC0.4mg/dL Range :0mg/dL-1.2mg/dL OSMOLALITY SerPl Jege516tidk/kg Range:275mosm/kg-295mosm/kg ALP BLD-CCNC83{[U/L]} Range:35{[ U/L]}-104{[U/L]} POTASSIUM SERPL-SCNC3.9mmol/L Ra nge:3.4mmol/L-4.8mmol/L ALBUMIN SERPL-MCNC3.9g/dL Range: 3.5g/dL-5.1g/dL GFR,OTHER(CKD-EPI)79 {[mL/min/1.7 3m2]}(Low) Range:89{[mL/min/1.73m2]}-0 BUN SERPL-MCNC12.9mg/dL Range:7m g/dL-24mg/dL CO2 BLD-ONLE50hmok/L Range:22mmo l/L-30mmol/L MAGNESIUM BLD-MCNC Ordered On:10-Mar-2025 20:28 [...] EOSINOPHIL NFR BLD AUTO1.4% PLATELET NO. BLD PNEM143{[10*3/uL]} Range:135{[10*3/uL]}-370{[10 *3/uL]} BASOPHILS NO. BLD AUTO0.04{[10*3/uL]} Range:0{[10*3/uL]}-0.1{[10*3 [...] Range :0mg/dL-1.2mg/dL AST SERPL-CCNC33{[U/L]} Range:9{ [U/L]}-35{[U/L]} SODIUM SERPL-AUDA088sipf/L Range :136mmol/L-144mmol/L ALT SERPL-CCNC33{[U/L]} Range:5{ [U/L]}-40{[U/L]} CREAT SERPL-MCNC0.9mg/dL Range:0 .5mg/dL-1.2mg/dL CO2 BLD-KAJX28wxfp/L Range:22mmo l/L-30mmol/L ANION GAP9 Range:2-15 CHLORIDE BLDV-NPXQ424lyie/L Rang e:98mmol/L-108mmol/L CALCIUM BLD-MCNC8.9mg/dL Range:8 .6mg/dL-10.2mg/dL OSMOLALITY SerPl Slty977fjvt/kg Range:275mosm/kg-295mosm/kg GLUCOSE SERPL-LBKZ74ft/dL Range: 65mg/dL-100mg/dL BUN SERPL-MCNC11.8mg/dL Range:7m g/dL-24mg/dL HGB A1C MFR BLD Ordered On:09-Feb-2025 9:37 09-Feb-2025 10:35 EST. AVERAGE GLUCOSE BLD GHB EST-IOSZ0skhm/L EST. AVERAGE GLUCOSE BLD GHB EST-NTLL447bj/dL HGB A1C MFR BLD5.4% Range:0-5.7% Comments:Normal: <5.7%Pre-Diabetes: [...] Estradiol. Ordered On:08-Feb-2025 14:52 10-Feb-2025 11:11 ESTRADIOL SERPL-TFPC846.0 Comm ents:Unit: pg/mLAdult Female RangeFollicular phase 12.5 - 166.0Ovulation phase 85.8 - 498.0Luteal phase 43.8 - 211.0Postmenopausal <6.0 - 54.1Xrecthoiv3mi trimester 215.0 - >4300.0Roche ECLIA methodologyPerformed At: [facility] [place], [place] [id number] Vincent PhD Ph:[phone] Follicle Stimulating Hormone (FSH), Serum Ordered On:08-Feb-2025 14:52 10-Feb-2025 7:12 FSH SERPL-ACNC4.5 Comments:Unit : mIU/mLAdult Female RangeFollicular phase 3.5 - 12.5Ovulation phase 4.7 - 21.5Luteal phase 1.7 - 7.7Postmenopausal 25.8 - 134.8Performed At: [facility] [place], [place] [id number] Vincent PhD Ph:[phone] Progesterone Ordered On:08-Feb-2025 14:52 10-Feb-2025 7:12 PROGEST SERPL-MCNC0.2 Comments: Unit: ng/mLFollicular phase 0.1 - 0.9Luteal phase 1.8 - 23.9Ovulation phase 0.1 - 12.0First trimester 11.0 - 44.3Second trimester 25.4 - 83.3Third trimester 58.7 - 214.0Postmenopausal 0.0 - 0.1Performed At: [facility] [place], [place] [id number] Vincent PhD Ph:[phone] Multiplex Vaginal Panel Ordered On:31-Jan-2025 1 8:58 [...] validated with vaginal swabs collected with the [employer] Specimen Collection Kit.The Xpert Xpress MVP test [...] validated with vaginal swabs collected with the [employer] Specimen Collection Kit.The Xpert Xpress MVP test [...] is not detected.Testing is performed on the [employer] System. 29-Nov-2024 15:37 SPECIMEN SOURCE XXXV [...] Resp. Syncytial Viru sNOT DETECTED Range:TNDET Coronavirus PQ12OCG DETECTED Ran ge:TNDET SARS coronavirus 2 R NANOT DETECTEDThe 2018 Novel coronavirus (SARS-CoV-2) target nucleic acids are not detected.[This result will be reported to [facility].] Range:TNDET Coronavirus GW75IQY DETECTED Ran ge:TNDET Bordetella parapertu ssisNOT DETECTED Range:TNDET Parainfluenza 3NOT DETECTED Rang e:TNDET Parainfluenza 2NOT DETECTED Rang e:TNDET Human Rhino/enterovi rusNOT DETECTED Range:TNDET Human Metapneumoviru sNOT DETECTED Range:TNDET Parainfluenza 4NOT DETECTED Rang e:TNDET Mycoplasma pneumonia eNOT DETECTED Range:TNDET Coronavirus PXM4NBL DETECTED Ran ge:TNDET Parainfluenza 1NOT DETECTED Rang [...] are not detected.Testing is performed on the [employer] System. 10-Nov-2024 15:12 LIMITATIONS:The Xper t CT/NG [...] urogenital infection. SPECIMEN SOURCE XXXU RINE FROM Critique^It COLLECTION KIT UA DIPSTICK PNL UR STRIP.AUTO [...] validated with vaginal swabs collected with the [employer] Specimen Collection Kit.The Xpert Xpress MVP test [...] Ordered On:22-Oct-2024 7:37 22-Oct-2024 7:43 GLUCOSE BLDC GLUCOMTR-BTJG46fi/dL Range:65mg/dL-100mg/dL UA DIPSTICK PNL UR STRIP.AUTO Ordered [...] RBC AUTO41.2fL Range:36.4fL- 50fL PLATELET NO. BLD ZIMD496{[10*3/uL]} Range:135{[10*3/uL]}-370{[10 *3/uL]} DIFFERENTIAL METHOD BLDAUTOMATED LYMPHOCYTES NO. BLD AUTO1.02{[10*3/uL]} Range:0.6{[10*3/uL]}-3.5{[10 *3/uL]} BASOPHILS NO. BLD AUTO0.01{[10*3/uL]} Range:0{[10*3/uL]}-0.1{[10*3 /uL]} MCHC RBC AUTO-MCNC33.6g/dL Range :31g/dL-35g/dL MCV RBC AUTO90.1fL Range:83fL-98 fL 23-Sep-2024 8:33 DIFF TYPEAUTOMATED D IFFERENTIAL PERFORMED COMP METAB 2000 PNL SERPL Ordered On:23-Sep-2024 8:33 23-Sep-2024 9:22 PROT SERPL-MCNC7.0g/dL Range:6.3 g/dL-8g/dL ALP BLD-CCNC63{[U/L]} Range:35{[ U/L]}-104{[U/L]} ALT SERPL-CCNC27{[U/L]} Range:5{ [U/L]}-40{[U/L]} ANION GAP8 Range:2-15 CHLORIDE BLDV-TGPX805mjeq/L Rang e:98mmol/L-108mmol/L BUN/CREAT SerPl16.5 CO2 BLD-SMQS94uetq/L Range:22mmo l/L-30mmol/L GLUCOSE SERPL-KTOU39al/dL Range: 65mg/dL-100mg/dL SODIUM SERPL-KAOV927aefx/L Range :136mmol/L-144mmol/L GFR,OTHER(CKD-EPI)79 {[mL/min/1.7 3m2]}(Low) Range:89{[mL/min/1.73m2]}-0 POTASSIUM SERPL-SCNC3.9mmol/L Ra nge:3.4mmol/L-4.8mmol/L OSMOLALITY SerPl Xteg286jrpg/kg Range:275mosm/kg-295mosm/kg CREAT SERPL-MCNC0.9mg/dL Range:0 .5mg/dL-1.2mg/dL BUN SERPL-MCNC14.0mg/dL [...] Ambulatory Encounter Reason:diarrhea, concern for uti 30-Aug-2025 12:42Zp96-Yto-9689 12:45 Naren Montanez (Attending) [facility] Ambulatory Encounter Reason:Possible UTI 25-Aug-2025 15:37Pi3-Wkw-6784 16:16 Ray Morataya (Attending) [facility] Emergency Encounter Diagnosis:Chronic interstitial cystitis,Other specified disorders of bladder 12-Aug-2025 23:83Zn02-Wkp-2708 0:54 Chente Eric (Attending) [facility] Ambulatory Encounter Diagnosis:Dysuria 09-Aug-2025 13:05No47-Ris-6838 13:57 Sherry Johnson (Attending) [facility] Ambulatory Encounter Diagnosis:Dysuria 01-Aug-2025 18:11Cm35-Siy-6405 18:57 Mathieu Gregory (Attending) [facility] Ambulatory Encounter Reason:UTI symptoms Encounter Diagnosis:Dysuria 22-Jul-2025 14:27Os5-Wxj-2469 14:55 [facility] Ambulatory Encounter Diagnosis:Dysuria 08-Jul-2025 9:39Cs53-Uyn-6537 11:20 George Flower (Attending) [facility] Ambulatory Encounter Diagnosis:Dysuria 05-Jul-2025 15:87Tt03-Ncg-4067 16:19 Ousmane Mallory (Attending) [facility] Ambulatory Encounter Reason:UTI symptoms Encounter Diagnosis:Dysuria 01-Jul-2025 8:72Ey81-Jhg-3675 9:50 Naren Montanez (Attending) [facility] Ambulatory Encounter Diagnosis:Dysuria 15-Jun-2025 16:98Sv79-Xrv-7120 17:04 Naren Montanez (Attending) [facility] Ambulatory Encounter Diagnosis:Chronic pain,Hallux valgus (acquired), right foot,Contracture, right ankle,Pain in right ankle and joints of right foot,Metatarsalgia, right foot,Pain in right foot,Leg cramps 13-Jun-2025 15:01Yn61-Kta-6570 23:59 Laura York (Attending) [facility] Ambulatory Encounter Diagnosis:Person with feared health complaint in whom no diagnosis is made 05-Jun-2025 15:19Qh45-Myk-0220 16:38 Noemi Solorio (Attending) [facility] Emergency Encounter Diagnosis:Unspecified abdominal pain 29-May-2025 9:21Ft74-Rjt-8659 12:26 Sascha Eid (Attending) [facility] Ambulatory Encounter Reason:uti Encounter Diagnosis:Procedure and treatment not carried out for other reasons 27-May-2025 15:46Zq76-Shd-7380 16:47 Naren Montanez (Attending) [facility] Ambulatory Encounter Reason:Possible UTI Encounter Diagnosis:Other specified disorders of bladder 17-May-2025 15:72Lf6-Tdf-7128 16:04 Sherry Johnson (Attending) [facility] Ambulatory Encounter Diagnosis:Dysuria 07-May-2025 15:44Ej50-Qut-1585 16:13 George Flower (Attending) [facility] Ambulatory Encounter Diagnosis:Dysuria 30-Apr-2025 11:20Em65-Ibl-5596 12:06 Laura Quiroga (Attending) [facility] Ambulatory Encounter Diagnosis:Urinary frequency 27-Apr-2025 17:16Ho72-Agf-0434 23:59 Brayden Quigley (Attending) [facility] Clinic Encounter Diagnosis:Other specified disorders of bladder 27-Apr-2025 16:30 B Ambulatory 27-Apr-2025 16:30To1 17-Apr-2025 16:45 Brayden Quigley (Attending) [facility] Ambulatory Encounter Diagnosis:Dysuria 24-Apr-2025 12:80Ui2-Flu-0857 13:00 [facility] Ambulatory Encounter Diagnosis:Decreased GFR 18-Apr-2025 15:85Hy3-Uqk-1854 23:59 Idalmis Richard (Attending) [facility] Ambulatory 14-Apr-2025 16:30To2 25-Mar-2025 17:00 Hilary Raygoza (Attending) [facility] Ambulatory Encounter Diagnosis:Pain in right ankle and joints of right foot 14-Apr-2025 16:96Sw18-Zpj-3060 23:59 Idalmiskenneth Richard (Attending) [facility] Ambulatory Encounter Diagnosis:Dysuria 12-Apr-2025 15:97Rq90-Ltj-0298 16:28 Naren Montanez (Attending) [facility] Ambulatory Encounter Diagnosis:Low back pain, unspecified,Urinary frequency,Urgency of urination,H/O hydronephrosis 06-Apr-2025 16:01Yb31-Oeg-3995 16:50 Emiliana Mason (Attending) [facility] Ambulatory Encounter Reason:Possibel UTI Encounter Diagnosis:Dysuria 30-Mar-2025 15:65Gc03-Uff-0582 16:01 Sherry Johnson (Attending) [facility] Ambulatory Encounter Diagnosis:Other symptoms and signs involving the genitourinary system 24-Mar-2025 15:23So5-Jcr-5524 16:15 Naren Montanez (Attending) [facility] Ambulatory Encounter Diagnosis:Urinary frequency 21-Mar-2025 15:98Gb2-Psl-1882 16:41 Girish Xiong (Attending) [facility] Ambulatory Encounter Diagnosis:Dysuria,Urinary frequency 14-Mar-2025 13:80Io67-Vjn-3302 14:26 Laura Quiroga (Attending) [facility] Ambulatory Encounter Diagnosis:Unspecified ovarian cyst, unspecified side 14-Mar-2025 10:15Cb22-Phi-7357 23:59 Idalmis Richard (Attending) [facility] Emergency Encounter Diagnosis:Chronic interstitial cystitis,Diarrhea, unspecified 10-Mar-2025 19:04Wi72-Dsk-6276 22:26 Sascha Eid (Attending) [facility] Ambulatory Encounter Diagnosis:Scar conditions and fibrosis of skin,Localized swelling, mass and lump, left upper limb 03-Mar-2025 10:34Ou42-Coc-4571 23:59 Idalmis Richard (Attending) [facility] Ambulatory 03-Mar-2025 10:00To1 21-Feb-2025 11:00 Hilary Raygoza (Attending) [facility] Ambulatory Encounter Diagnosis:Dysuria 01-Mar-2025 10:36Yt83-Vls-9306 23:59 Idalmiskenneth Richard (Attending) [facility] Ambulatory 01-Mar-2025 10:00To1 19-Feb-2025 10:30 Hilary Raygoza (Attending) [facility] Emergency Encounter Diagnosis:Other specified disorders of bladder 24-Feb-2025 4:80Bw19-Iqn-2868 5:29 [facility] Ambulatory Encounter Diagnosis:Hematuria, unspecified 15-Feb-2025 7:79Ry7-Sht-0329 8:11 Naren Montanez (Attending) [facility] Ambulatory Encounter Diagnosis:Acetonuria,ACETONURIA 09-Feb-2025 9:27Dz88-Qks-2277 23:59 Idalmiskenneth Richard (Attending) [facility] Ambulatory 08-Feb-2025 15:00To2 19-Jan-2025 16:00 Hilary Raygoza (Attending) [facility] Ambulatory Encounter Diagnosis:Urinary frequency,Chills (without fever) 08-Feb-2025 14:52Uv92-Wbb-5828 23:59 Idalmis Amandablaine Richard (Attending) [facility] Emergency Encounter Diagnosis:Rash,Adverse effect of other systemic antibiotics, initial encounter 01-Feb-2025 5:09Ew07-Bqz-0529 6:53 Holger Maldonado (Attending) [facility] Ambulatory Encounter Diagnosis:Other specified noninflammatory disorders of vagina 31-Jan-2025 18:52Dv85-Ypn-3396 19:25 Sherry Johnson (Attending) [facility] Ambulatory Encounter Diagnosis:Urinary frequency 29-Jan-2025 6:49Qu73-Klw-4996 7:10 Naren Montanez (Attending) [facility] Emergency Encounter Diagnosis:Dysuria 27-Jan-2025 1:96Ib29-Gkn-3727 2:18 Evaristo Cartagena (Attending) [facility] Ambulatory Encounter Diagnosis:Dysuria 21-Jan-2025 15:54De4-Tfa-8377 16:21 Naren Montanez (Attending) [facility] Emergency Encounter Diagnosis:Urinary tract infection,Dysuria 08-Jan-2025 1:80De42-Mzz-7302 2:44 [facility] Ambulatory Encounter Diagnosis:H/O hydronephrosis 04-Jan-2025 16:63Hl09-Mjr-1168 17:26 Emiliana Mason (Attending) [facility] Ambulatory Encounter Diagnosis:Dysuria,Hematuria, unspecified 30-Dec-2024 16:77Ns49-Buv-2134 17:33 Naren Montanez (Attending) [facility] Emergency Encounter Diagnosis:Dysuria 24-Dec-2024 22:86Fx0-Ftz-6012 0:39 Girish Casas (Attending) [facility] Ambulatory Encounter Diagnosis:Dysuria 17-Dec-2024 12:45Hd65-Yeq-2822 14:48 George Flower (Attending) [facility] Emergency Encounter Diagnosis:Cystitis, unspecified without hematuria 08-Dec-2024 11:84Qt32-Yhn-2901 12:57 Holger Maldonado (Attending) [facility] Ambulatory Encounter Diagnosis:Dysuria 04-Dec-2024 18:19Uk40-Tse-0675 19:00 George Flower (Attending) [facility] Ambulatory Encounter Diagnosis:Chronic pelvic pain in female,Dysuria 29-Nov-2024 14:13Ab30-Vfi-5738 15:39 Laura Quiroga (Attending) [facility] Ambulatory Encounter Diagnosis:Dysuria 26-Nov-2024 12:67Ls36-Mfu-1778 23:59 Brayden Quigley (Attending) [facility] Clinic Encounter Diagnosis:Chronic interstitial cystitis,Dysuria,Urinary frequency 26-Nov-2024 11:45 B Ambulatory 26-Nov-2024 11:45To1 12:00 Brayden Quigley (Attending) [facility] Emergency Encounter Diagnosis:Chest pain, atypical,Exposure to COVID-19 virus,Dysuria 19-Nov-2024 23:61Ra2-Coo-6179 4:02 [facility] Emergency Encounter Diagnosis:Dysuria 19-Nov-2024 1:67Tm9-Etd-9557 2:20 [facility] Emergency Encounter Diagnosis:Dysuria 10-Nov-2024 14:81Rr52-Fgt-4474 16:14 [facility] Emergency Encounter Diagnosis:Essential (primary) hypertension,Dysuria 05-Nov-2024 23:01Wt30-Viu-3075 1:32 LASHAE GANDARA (Attending) [facility] Ambulatory Encounter Diagnosis:Urinary frequency 03-Nov-2024 9:89Zc61-Akp-9075 9:56 Girish Xiong (Attending) [facility] Emergency Encounter Diagnosis:Dysuria 29-Oct-2024 11:98Zq39-Jwm-9399 14:13 [facility] Emergency Encounter Diagnosis:Urinary frequency 27-Oct-2024 10:69Sp16-Yle-5423 12:28 Chente Eric (Attending) [facility] Ambulatory Encounter Diagnosis:Urinary frequency 23-Oct-2024 14:73Nl0-Vdg-2208 15:07 Naren Montanez (Attending) [facility] Surgical Encounter Diagnosis:Chronic interstitial cystitis 22-Oct-2024 7:02Iy2-Gzv-2551 11:12 Brayden Quigley (Attending) [facility] Emergency Encounter Diagnosis:Dysuria 18-Oct-2024 15:92Dz0-Xqf-5023 17:49 [facility] Ambulatory Encounter Diagnosis:Nasal congestion,Dysuria,Urinary frequency 14-Oct-2024 9:05In48-[id number] 10:24 Mathieu Gregory (Attending) [facility] Ambulatory Encounter Diagnosis:Acute upper respiratory infection, unspecified,Dysuria,Urinary frequency 11-Oct-2024 9:28Fk90-Iso-1134 10:38 Naren Montanez (Attending) [facility] Clinic Encounter Diagnosis:Mixed irritable bowel syndrome 05-Oct-2024 14:45 B Ambulatory 05-Oct-2024 14:45To1 25-Sep-2024 15:30 Jerilyn Mejia (Attending) [facility] Ambulatory Encounter Diagnosis:Dysuria 04-Oct-2024 15:08Ma20-Pki-5501 16:24 Mathieu Gregory (Attending) [facility] Ambulatory Encounter Diagnosis:Dysuria 30-Sep-2024 12:37Kf16-Clg-9874 13:51 Ray Morataya (Attending) [facility] Ambulatory Encounter Diagnosis:Dysuria 26-Sep-2024 9:13Zf40-Oxj-2498 10:15 George Flower (Attending) [facility] Ambulatory Encounter Diagnosis:Urinary frequency 24-Sep-2024 16:37Mi2-Qpz-[id number] 23:59 Brayden Quigley (Attending) [facility] Clinic Encounter Diagnosis:Dysuria,Urinary frequency 24-Sep-2024 15:45 B Ambulatory 24-Sep-2024 15:45ToSep-2024 16:00 Brayden Quigley (Attending) [facility] Emergency Encounter Diagnosis:Unspecified abdominal pain 23-Sep-2024 8:41Ne2-Xnm-0504 10:37 Holger Maldonado (Attending) [facility] Emergency Encounter Diagnosis:Unspecified abdominal pain 21-Sep-2024 18:61Sn8-Guu-2661 21:24 Chente Eric (Attending) [facility] Ambulatory Encounter Diagnosis:Dysuria 21-Sep-2024 9:03Fq4-Kva-4095 10:11 Ray Morataya (Attending) [facility] Ambulatory Encounter Reason:possible UTI Encounter Diagnosis:Dysuria,Urinary frequency 15-Sep-2024 15:96Td83-Fbu-9210 16:25 Laura Quiroga (Attending) [facility] Ambulatory Encounter Diagnosis:Dysuria 14-Sep-2024 15:22Cy82-Lmo-3720 16:33 Naren Montanez (Attending) [facility] Emergency Encounter Diagnosis:Dysuria 04-Sep-2024 12:51Ey93-Eun-2784 13:58 Sascha Eid (Attending) [facility] Ambulatory Encounter Reason:dizziness, chest pain, burning when urinating, 30-Jul-2024 9:05 Naren Montanez (Attending) [facility]
--- OUTSIDE RECORDS SUMMARY | 2025-09-02 14:59 | XMS_ITS | Clinical Summary ---
Author Organization [facility] Healthcare Address [address] [place] [address] Care Team Providers Care Office Cleaner Name Role Phone Aryan Justice ARANGO Unavailable Agatha Quiñones NP Primary Care Provider [phone] Allergies Active Allergy Reactions Criticality Noted Date [...] 01/20/2024 Assessment & Plan (01/20/2024 10:58 AM CVT TECH): Discussed diagnosis. Patient does not want HRT including vaginal estrogen cream. Does not like lubricants. Screening for thyroid disorder 01/20/2024 Assessment & Plan (01/20/2024 10:59 AM CVT TECH): TSH ordered to be done before annual physical in May Screening, anemia, deficiency, iron 01/20/2024 Assessment & Plan (01/20/2024 10:59 AM CVT TECH): Labs ordered for before annual physical in May Screening for lipid disorders 01/20/2024 Assessment & Plan (01/20/2024 10:59 AM CVT TECH): Lipid panel ordered for May Screening for diabetes mellitus 01/20/2024 Assessment & Plan (01/20/2024 10:59 AM CVT TECH): CMP ordered before annual physical in May Acute otitis media 01/13/2024 Asthma 01/13/2024 Assessment & Plan (01/20/2024 10:57 AM CVT TECH): Patient denies any shortness of breath. States [...] 10/28/2022 Assessment & Plan (10/28/2022 12:52 PM CVT TECH): -per patient. Previous lipase from 10/11 noted [...] 09/24/2022 Assessment & Plan (09/24/2022 8:47 AM CVT TECH): Does not want to have this treated but states that she was doing conuseling and keeping track of her triggers Mood disorder 09/24/2022 Assessment & Plan (05/22/2023 3:51 PM CDT): Patient agreeable to Psychiatry, I agree with patient and do suspect an ADHD component. Referral placed. S/P hysterectomy 09/24/2022 Assessment & Plan (01/20/2024 11:00 AM CVT TECH): Patient has intact ovaries, which are likely gradually failing over time and causing vaginal dryness and dyspareunia. Partial small bowel obstruction 08/20/2022 Bleeding external hemorrhoids 03/12/2022 Irritable bowel syndrome with constipation 02/27 Assessment & Plan (10/28/2022 12:51 PM CVT TECH): -ongoing for years. Previously followed by a radio engineer. + prior colonoscopy. No anemia. Normal menstruation. No history of melena or hematochezia. No family history of colon cancer. No family history of IBD. No weight changes. No relief with use of cher-iij-teigkdu laxatives. Patient is however not willing to [...] on 03/28/23 Pt has been referred to coffee bar attendant who tests for drug allergies so we may be able to take some allergies off her list. Assessment & Plan (09/24/2022 8:44 AM CVT TECH): Following with GI - as per previous [...] colonoscopy Assessment & Plan (09/24/2022 8:49 AM CVT TECH): Following with GI Assessment & Plan (04/21/2022 7:46 PM CDT): She manages with Golytely drink full gallon every couple weeks and happy with this so will continue the same. Rectal bleeding 04/05/2020 Overview (04/05/2020): Added automatically from request for surgery [id number] Assessment & Plan (04/05/2020 3:02 PM CDT): [...] 04/05/2020 Assessment & Plan (01/20/2024 10:55 AM CVT TECH): BMI 26.56 Patient tries to actively manage [...] planned. Assessment & Plan (10/28/2022 12:53 PM CVT TECH): -discussed the pathophysiology of gastroesophageal reflux disease [...] Urology Assessment & Plan (01/20/2024 10:54 AM CVT TECH): Symptomatic today. UA unremarkable except for a trace of blood that patient reports is present chronically. Managed by Urology. Instructed to increase fluids. Assessment & Plan (03/24/2023 3:37 PM CDT): Patient had a cystoscopy recently per her Urologist that was normal. Has upcoming appointment with Dr Blanchard on 03/27/23. Incisional hernia, without obstruction or gangre ne 11/12/2018 Assessment & Plan (11/12/2018 10:52 AM CVT TECH): Reducible, tender. May be the source of pain as it is so close to the umbilicus and patient cannot differentiate location pain. Umbilical pain 11/12/2018 Assessment & Plan (11/12/2018 10:53 AM CVT TECH): Unable to feel defect but very tender, [...] Urology Assessment & Plan (01/20/2024 10:55 AM CVT TECH): Chronic symptom not related to any acute cystitis Urethral stricture 10/30/2016 Overview (01/13/2024): Dr. Naren Ventura - Urology Irritable bowel syndrome 10/30/2016 Overview (01/13/2024): Dr. Ventura - urology Assessment & Plan (01/20/2024 10:56 AM CVT TECH): Patient reports that managing her diet has helped control the chronic diarrhea. She is being managed by Dr. Milligan at [facility] Assessment & Plan (04/09/2023 9:35 [...] (01/13/2024): Added automatically from request for surgery [id number] Assessment & Plan (04/05/2020 3:01 PM CDT): [...] Bilateral tubal ligation CHOLECYSTECTOMY 11/17/2004 - 11/16/2005 CA SEPTOPLASTY/SUBMUCOUS RESECJ W/WO CARTILAGE GRF 2013,2014 x2 KNEE SURGERY 11/17/1991 - 11/16/1992 Right LAPAROSCOPIC RADHA FUNDOPLICATION 11/17/2003 - 11/16/2004 TONSILLECTOMY AND ADENOIDECTOMY 11/17/2002 - 11/16/2003 Tonsillectomy UMBILICAL HERNIA REPAIR 2015, 2017 Umbilical Hernia Repair x 2 TRIGGER FINGER RELEASE 11/17/2017 - 11/16/2018 Left middle HEMORRHOID SURGERY 10/17/2019 - 11/16/2019 Dr. Navarro at [facility] SURGERY HYSTERECTOMY 11/17/2011 - 11/16/2012 Hysterectomy BREAST [...] on file Legal Sex Female 12:19 AM CVT TECH Gender Identity Not on file Sexual Orientation [...] Regular Well Visit/Exam 18-64 10/04/2023 10/04/2022, 12/01/2018 Breast Cancer Screening-Mammogram 10/03/2024 10/03/2023, 01/17/2022, 03/16/2021, Additional history exists Depression Screening 01/19/2025 01/20/2024, 01/20/2024, 05/22/2023, Additional history exists Covid-19 Vaccine ( - 2024-2 6 season) 2025 12/02/2021, 06/01/2021, 05/11/2021 Influenza Vaccine (#1) 2025 , 08/11/2020, 08/23/2019 Colon Cancer Screening-Colonoscopy 05/01/2033 05/01/2023, 04/15/2023, 04/24/2020, Additional history exists Hepatitis C Screening Completed 07/08/2019 Procedures Procedure Name Priority Date/Time Associated Diagnosis Comments SCREENING MAMMOGRAM BILATERAL W JOSE Schedule Routine, Read Routine (OP Routine) 10/03/2023 9:23 AM CVT TECH Encounter for screening mammogram for malignant neoplasm of breast COLONOSCOPY 05/01/2023 10:01 AM CDT HEPATITIS C AB REFLEX RNA QUANT PCR Routine 07/08/2019 9:17 AM CDT from Last 3 Months or Most Recently Relevant to Health Maintenance Results * Screening Mammogram Bilateral W Jose (10/03/2023 9:23 AM CVT TECH) Anatomical Region Laterality Modality Breast Bilateral Mammography Narrative 10/03/2023 1:15 PM CVT TECH BILATERAL DIGITAL MAMMOGRAPHY The present examination has [...] Baeza MD - 05/01/2023 10:01 AM CDT [facility] Patient Name: Yaquelin Jauregui Procedure Date: 05/01/2023 10:01 AM Date of : 1975 Admit Type: Outpatient Age: 48 Gender: Female Attending MD: Justice Baeza M.D. Room: [facility] ENDOSCOPY ROOM 2 Note Status: Finalized Patient [...] procedure were verified by the physician, the wood science professor and the outside plant technician in the endoscopy suite. Mental Status [...] passed under directvision. The Pediatric Colonoscope PCF-H190L [id number] was introduced through the anus and advanced [...] 10:01 AM Procedure Code(s): --- Professional --- 26081, Colonoscopy, flexible; diagnostic, including collection of specimen(s) by brushing or washing, when performed (separateprocedure) --- Technical --- 44391, Colonoscopy, flexible; diagnostic, including collection of specimen(s) [...] congenital malformations of intestine CPT copyright 2020 [employer]. All rights reserved. The codes documented in this report are preliminary and upon brim rounder reviewmay be revised to meet current compliance requirements. Recognized by the [employer] for promoting quality in endoscopy Justice Baeza MD ENDOSCOPY PROCEDURES Final Resul t * Hepatitis C Antibody Reflex Hepatitis C RNA Quantitative PCR Blood (07/08/2019 9:17 AM CDT) Hep C Ab Negative Negative [facility] ([place]) Comment:Testing performed by : [facility], [address] [place] [address], [place]., [address] Blood specimen (specimen) 07/08/2019 9:17 AM CDT 07/08/2019 2:18 PM CDT Lakia King LUMP MACHINE OPERATOR LAB MICROBIOLOGY - GENERAL OR DERABLES Final Result [facility] ([place]) [facility] Department [place] [address] from Last 3 Months or Most Recently Relevant to Health Maintenance [place] Advance Directives For more information, please contact: [phone] * Full Code (Latest Code Status on [...] 8:25 AM 04/10/2023 8:25 AM Care Teams Office Cleaner Relationship Specialty Start Date End Date Agatha Quiñones LUMP MACHINE OPERATOR [id number] [place] [address] PCP - General Supervising Librarian 01/20/24 Justice Baeza MD [address] [place] [address] [address] [place] [address] Consulting Physician Gastroenterology 04/09/23
[2025-09-02 15:15] LABS: EDUAAPPEAR Clear; EDUABILI Negative (Negative); EDUABLOOD Trace (Negative); EDUACOLOR1 Yellow; EDUAGLUCOSE Negative (Negative); EDUAKETONE Negative (Negative); EDUALEUKO Negative (Negative); EDUANITRATE Negative (Negative); EDUAPH 6.0; EDUAPROTEIN Negative (Negative); EDUASPGRAVITY 1.030; EDUAUROBILI 0.2
--- NOTE | 2025-09-02 15:19 | ED.FEMALEGU ---
HPI - Female Genitourinary General Chief complaint: Urogenital-Female Stated complaint: Urinary Problem Time Seen by Provider: 09/02/25 15:15 Source: patient, RN notes reviewed and old records reviewed Mode of arrival: ambulatory Limitations: no limitations History of Present Illness HPI Narrative: 50-year-old female patient with history of interstitial cystitis and irritable bowel syndrome presents today with a 2 day history of urinary frequency and dysuria. Denies abdominal pain, back pain, fever, or any additional symptoms. She visits frequently with similar symptoms to make sure she does not have an acute UTI. She has had frequent urinalysis and multiple urine cultures. Typically she will have trace blood in her urine and negative urine cultures. She does see a urologist. Related Data Home Medications ?Medication ?Instructions ?Recorded ?Confirmed ?Last Taken ?Type No Home Medications 07/06/24 06/10/25 Unknown History Allergies Allergy/AdvReac Type Severity Reaction Status Date / Time amoxicillin AdvReac Intermediate Chest Pain Verified 09/02/25 15:02 codeine AdvReac Intermediate Nausea and Verified 09/02/25 15:02 Vomiting ketorolac (From Toradol) AdvReac Intermediate Palpitation Verified 09/02/25 15:02 s levofloxacin (From Levaquin) AdvReac Intermediate Chest Pain Verified 09/02/25 15:02 nitrofurantoin (From AdvReac Intermediate Chest Pain Verified 09/02/25 15:02 Macrobid) Penicillins AdvReac Intermediate Chest Pain Verified 09/02/25 15:02 Sulfa (Sulfonamide AdvReac Intermediate Chest Pain Verified 09/02/25 15:02 Antibiotics) vancomycin AdvReac Intermediate Chest Pain Verified 09/02/25 15:02 acetaminophen AdvReac Mild Hives Verified 09/02/25 15:02 clindamycin AdvReac Mild Hives Verified 09/02/25 15:02 gadobenic acid (From AdvReac Mild Hives Verified 09/02/25 15:02 contrast - MRI) hydrocodone AdvReac Mild Hives Verified 09/02/25 15:02 iohexol (From contrast - CT, AdvReac Mild Hives Verified 09/02/25 15:02 X-RAY) latex AdvReac Mild RASH-CONDOMS Verified 09/02/25 15:02 AND GLOVES lubiprostone (From Amitiza) AdvReac Mild Itching Verified 09/02/25 15:02 paroxetine (From Paxil) AdvReac Mild Hives Verified 09/02/25 15:02 propoxyphene (From AdvReac Mild Itching Verified 09/02/25 15:02 Darvocet-N 100) [facility] Past Medical History Medical History Family history of malignant neoplasm of colon in father Irritable bowel syndrome with constipation Vaginal delivery Right hand fracture GERD (gastroesophageal reflux disease) Anxiety Depression Urinary tract infection Genitourinary disorder Interstitial cystitis, urethral dilation Constipation Irritable bowel syndrome Bronchitis Mitral valve prolapse Interstitial cystitis Surgical History Surgical History H/O umbilical hernia repair History of urinary tract surgery History of hysterectomy H/O hemorrhoidectomy History of orthopedic surgery Right knee, trigger release finger left hand H/O tubal ligation H/O sinus surgery History of tonsillectomy History of facial surgery Nasal reconstruction Family History Family History Grandparent Diabetes mellitus, Onset Age: 200 Cerebrovascular accident, Onset Age: 200 Father Family history of elevated blood lipids Carcinoma of colon Family history of coronary artery disease, Onset Age: 201 Patient's father is Grandparent Family history of malignant neoplasm Diabetes mellitus Cerebrovascular accident Hypertension Family history of cardiovascular disease Father Family history of congestive heart failure Patient's father is Hypertension Carcinoma of colon Family history of emphysema Family history of cardiovascular disease Sibling Hypertension Grandparent Diabetes mellitus Social History Social History Social History: no caffeine use Smoking packs per day: 1.5 Smoking cigarettes per day: 30.0 Years smoked: 13 Smoking pack-years: 19.50 Smoking status: Former smoker Tobacco type: cigarettes Second hand tobacco smoke exposure: No Smoking end date: 07/06/10 Alcohol intake: never Substance use: never Living arrangements: with family Additional living arrangements comments: [facility] [phone] Occupation/Education: unemployed Gender identity (if verbalized by the patient): Female Sexual Orientation (if Verbalized by the Patient): Straight or Heterosexual Spiritual care concerns: No Comments At time of signature, I have reviewed and agree with nursing past medical, surgical, social and family history unless otherwise noted. Please see nursing chart for further information. There is no relevant family history pertinent to the presenting complaint Exam Narrative: GENERAL: Well-appearing, well-nourished, and in no acute distress. HEAD: Normocephalic, atraumatic. EYES: EOMI. No redness or drainage. Conjunctivae normal. ENT: Mucous membranes pink and moist. NECK: Normal AROM. CHEST: No respiratory distress. Clear to auscultation. HEART: Regular rate and rhythm. No murmur appreciated. Normal peripheral pulses. ABDOMEN: Soft, nontender, nondistended, normal active bowel sounds. -CVAT EXTREMITIES: Normal range of motion. No edema. SKIN: Warm, dry, no rash. Capillary refill normal. Normal skin turgor. NEURO: No focal deficits. Alert and oriented x3. Gait steady. PSYCH: Normal affect. No signs of depression or anxiety. Course Course Level of Care: Express Care Visit Vital Signs Vital signs: Vital Signs Temperature 97.4 F L 09/02/25 14:55 Pulse Rate 74 09/02/25 14:55 Respiratory Rate 20 09/02/25 14:55 Blood Pressure 105/60 09/02/25 14:55 Pulse Oximetry 100 09/02/25 14:55 Oxygen Delivery Room Air 09/02/25 14:55 Temperature 97.4 F L 09/02/25 14:55 Pulse Rate 74 09/02/25 14:55 Respiratory Rate 20 09/02/25 14:55 Blood Pressure 105/60 09/02/25 14:55 Pulse Oximetry 100 09/02/25 14:55 Oxygen Delivery Room Air 09/02/25 14:55 Review MDM - Female Genitourinary MDM Narrative Medical decision making narrative: 50-year-old female patient with history of interstitial cystitis and irritable bowel syndrome presents today with a 2 day history of urinary frequency and dysuria. Denies abdominal pain, back pain, fever, or any additional symptoms. She visits frequently with similar symptoms to make sure she does not have an acute UTI. She has had frequent urinalysis and multiple urine cultures. Negative exam. Urinalysis shows trace blood but is otherwise negative. Due to patient's history of frequent visits and urine cultures in the past that have been negative with history of interstitial cystitis, patient's urine will not be cultured today. Recommend follow-up with urology if symptoms persist. Patient agrees with plan. Vital signs stable. Differential Diagnosis Differential diagnosis: Likely urinary tract infection and other (UTI, chronic interstitial cystitis, pyelonephritis, PID) Lab Data Attestation: I reviewed the patient's lab results. Labs: Lab Results 09/02/25 Range/Units 15:12 POC Urine Color Yellow POC Urine Clarity Clear POC Urine pH 6.0 POC Ur Specif Hunters 1.030 POC Urine Protein Negative (Negative) POC Ur Glucose (UA) Negative (Negative) POC Urine Ketones Negative (Negative) POC Urine Blood Trace (Negative) POC Urine Nitrite Negative (Negative) POC Urine Bilirubin Negative (Negative) POC Urine Urobilinogen 0.2 POC U Leukocyte Esteras Negative (Negative) Critical Care Time Critical Care Time Critical Care Time: No Discharge Plan Discharge Clinical Impression: Chronic interstitial cystitis with hematuria Patient Disposition: Home Condition: Stable Additional Instructions: Your urine sample showed a trace amount of blood in your urine, which is normal for your urine samples. Follow-up with urology with persistent symptoms or worsening discomfort. Patient Language: Bermudian Prescriptions: No Action No Home Medications Follow-up/Referrals: UNKNOWN,DOCTOR [Primary Care Provider] Time of Disposition: 15:25
== END 2025-09-02 15:26 | disposition home or self-care (01) ==
PROVIDERS: Emergency Provider Nurse Practitioner
DX: N30.11 Interstitial cystitis (chronic) with hematuria (principal); K21.9 Gastro-esophageal reflux disease without esophagitis; I34.1 Nonrheumatic mitral (valve) prolapse; Z87.891 Personal history of nicotine dependence
CPT/HCPCS: 81003; 99212; G0463